=== PATIENT | male | born 1970 | race African-American/Black ===

== ENCOUNTER 2016-10-21 07:10 | Emergency (ER) | payer OTHER ==
[2016-10-21 07:34] VITALS: BMI 41.1
--- NOTE | 2016-10-21 08:34 | PDOC ---
History of Present Illness - General Chief Complaint: Pain Stated Complaint: R LEG/GROAIN PAIN,flank,constipation Time Seen by Provider: 10/21/16 07:15 History Source: Patient Exam Limitations: No Limitations - History of Present Illness Initial Comments: 10/21/16 08:00 46-year-old male presents to the ED with complaints of right groin pain radiating to his right inner thigh for the past week worsened with ambulation. Patient states had no arterial femoral stent placed by Dr. Sorensen last year and is pending stent in his left lower extremity but due to his poor kidney function is in the process of reevaluation. Patient states has no decreased temperature the to the right lower extremity but does state tingling sometimes numbness with periodic numbness noted to his right foot. Patient denies any lower extremity edema, calf tenderness, or weakness to the lower extremity. Timing/Duration: 1 week, getting worse Severity: moderate Associated Symptoms: denies: denies symptoms Past History - Past Medical History Allergies/Adverse Reactions: Allergies Allergy/AdvReac Type Severity Reaction Status Date / Time No Known Allergies Allergy Verified 10/21/16 07:14 Home Medications: Ambulatory Orders Aspirin [ASA -] 81 mg PO DAILY 04/04/15 Nebivolol HCl [Bystolic] 10 mg PO DAILY #30 tablet 04/17/15 Gabapentin [Neurontin] 300 mg PO TID 10/21/16 Insulin Pump Syringe, 1.8 ml [Thinset] 1 each MC DAILY 10/21/16 Olmesartan/Hydrochlorothiazide [Benicar Hct 40-25 mg Tablet] 1 each PO DAILY Anemia: No Asthma: No Cancer: No Cardiac Disorders: No CVA: No COPD: No CHF: No Dementia: No Diabetes: Yes HTN: Yes Hypercholesterolemia: Yes Seizures: No Other medical history: pvd ble - Surgical History Lung Surgery: Yes (lung tumor removed at age 4) Orthopedic Surgery: Yes (LFT carpal tunnel syndrome,LFT rotator muscles) - Immunization History Immunization Up to Date: Yes - Psycho/Social/Smoking Cessation Hx Anxiety: No Suicidal Ideation: No Smoking History: Former smoker Have you smoked in the past 12 months: Yes Number of Cigarettes Smoked Daily: 10 If you are a former smoker, when did you quit?: 10/2014 Information on smoking cessation initiated: No 'Breaking Loose' booklet given: 02/01/14 Hx Alcohol Use: No Drug/Substance Use Hx: Yes (peter) Substance Use Type: None Hx Substance Use Treatment: No Patient Lives Alone: No Lives with/in: spouse/SO Review of Systems - Review of Systems Able to Perform ROS?: Yes Constitutional: No: Symptoms Reported Musculoskeletal: Yes: Muscle Pain (rt groin, rt inner thigh) Integumentary: No: Symptoms Reported Neurological: No: Symptoms reported Endocrine: No: Symptoms Reported Hematologic/Lymphatic: No: Symptoms Reported *Physical Exam - Vital Signs Last Vital Signs Temp Pulse Resp BP Pulse Ox 98.1 F 94 H 18 130/57 98 10/21/16 07:15 10/21/16 07:15 10/21/16 07:15 10/21/16 07:15 10/21/16 07:15 - Physical Exam General Appearance: Yes: Nourished, Appropriately Dressed. No: Apparent Distress Neck: positive: Supple Respiratory/Chest: positive: Lungs Clear, Normal Breath Sounds. negative: Respiratory Distress, Accessory Muscle Use Cardiovascular: positive: Regular Rhythm, Regular Rate. negative: Murmur Vascular Pulses: Dorsalis-Pedis (R): 0 (No popiteal/post tibial pulse palpable) Comments:: 10/21/16 08:54 Audible right post tibial with doppler. Gastrointestinal/Abdominal: positive: Soft. negative: Tenderness Musculoskeletal: negative: CVA Tenderness Extremity: positive: Normal Capillary Refill. negative: Pedal Edema Integumentary: positive: Normal Color, Warm, Moist. negative: Rash, Swelling, Ecchymosis Neurologic: positive: Motor Strength 5/5 (ambulatory ) ED Treatment Course - LABORATORY CBC & Chemistry Diagram: 10/21/16 12:32 10/21/16 12:32 - RADIOLOGY Radiology Studies Ordered: Category Date Time Status DUPLEX ART. LOWER COMPL US [US] Stat Ultrasound 10/21/16 07:54 Ordered Medical Decision Making - Medical Decision Making 10/21/16 08:56 Pt with right thigh burning throbbing pain x 1 week. Pt with hx of arterial stent x [address] Sorensen to rt femoral. Pt with no palpable pulses to pedal, post tibial, or popiteal area. Via doppler able to auscultate post tibial pulses but no pedal pulse. Pt ordered for arterial duplex and then will speak with Dr. sorensen 10/21/16 10:07 Duplex shows an occluded graft. Call placed to Dr. Sorensen 10/21/16 11:47 Call placed again to Dr. Sorensen with no answer. So Spoke with the surgery team and patient is currently being assessed by surgery PA Brissa Aviles. 10/21/16 12:19 Surgical ALLYN Brumfield states she had spoken to Dr. Sorensen who will consult on patient shortly but on able to determine if patient will be admitted for surgery. patient will be placed for preop labs with IV access if admitted. 10/21/16 15:01 Laboratory Tests 10/21/16 10/21/16 10/21/16 12:32 12:32 12:32 WBC 12.0 H Hgb 13.6 Hct 42.0 Neutrophils % 56.7 Sodium 134 L Potassium 4.8 Chloride 97 L Carbon Dioxide 28 Anion Gap 9 BUN 20 H D Creatinine 1.3 D Creat Clearance w eGFR 58.92 Random Glucose 239 H D Calcium 8.9 AST 25 D ALT 28 D Alkaline Phosphatase 176 H D Albumin 3.3 L D Urine Glucose (UA) Urine Nitrite Ur Leukocyte Esterase Blood Type A POSITIVE 10/21/16 13:45 WBC Hgb Hct Neutrophils % Sodium Potassium Chloride Carbon Dioxide Anion Gap BUN Creatinine Creat Clearance w eGFR Random Glucose Calcium AST ALT Alkaline Phosphatase Albumin Urine Glucose (UA) 1+ H Urine Nitrite Negative Ur Leukocyte Esterase Negative Blood Type chest x-ray negative. Will contact Dr. Sorensen to discuss plan 10/21/16 15:[address] Sorensen and feels that this is not an urgent matter nor does this patient needs to be admitted but feels patient does need to follow-up in the office on . I have reviewed patient's labs and imaging with him and agrees patient may be discharged home. Selected Entries 10/21/16 11:00 Pulse Rate [ 85 Apical] Respiratory 18 Rate Blood Pressure 100/66 [Right Arm] O2 Sat by Pulse 100 Oximetry (%) *DC/Admit/Observation/Transfer Diagnosis at time of Disposition: Pain of right lower extremity, Occlusion of right femoral artery - Discharge Dispostion Disposition: HOME Condition at time of disposition: Fair - Referrals Referrals: Nikolay Cooper MD [Primary Care Provider] - Tate Sorensen MD [Staff Physician] - - Patient Instructions Printed Discharge Instructions: DI for Arteriovenous Graft Additional Instructions: I have spoken to Dr. Sorensen will feels you may be discharged home to follow- up in the office on . I recommend you call his office upon discharge today due to find out exactly time that you were placed on schedule. Please come to the emergency room if symptoms worsen. Please drink plenty of fluids, avoid sugary foods, and take your medication for diabetes as scheduled
[2016-10-21 12:42] LABS: BASOPHIL 1.2 % (0-2.0); EOSINOPHIL 3.1 % (0-4.5); MCH 27.2 pg (25.7-33.7); MCHC 32.4 g/dl (32.0-35.9); MEAN CELL VOLUME 84.1 fl (80-96); MEAN PLT VOLUME 8.3 fl (7.5-11.1); NEUTROPHILS 56.7 % (42.8-82.8); PLATELET COUNT 216 K/MM3 (134-434)
[2016-10-21 12:55] LABS: INR 1.09 (0.82-1.09)
[2016-10-21 13:14] LABS: ALBUMIN 3.3 g/dl (3.4-5.0); BILIRUBIN,TOTAL 0.7 mg/dL (0.2-1.0); CALCIUM 8.9 mg/dL (8.5-10.1); CREATININE 1.3 mg/dL (0.7-1.3); TOT PROT 6.8 g/dl (6.4-8.2)
[2016-10-21 14:03] LABS: URINE APPEARANCE CLEAR; URINE BILIRUBIN NEGATIVE (NEGATIVE); URINE BLOOD NEGATIVE (NEGATIVE); URINE COLOR LTYELLOW; URINE GLUCOSE (UA) 1+ (NEGATIVE); URINE KETONE NEGATIVE (NEGATIVE); URINE LEUK ESTERASE NEGATIVE (NEGATIVE); URINE NITRITE NEGATIVE (NEGATIVE); URINE PROTEIN NEGATIVE (NEGATIVE); URINE UROBILINOGEN NEGATIVE E.U./dl (0.2-1.0)
[2016-10-21 15:52] VITALS: BP 112/83; PULSE 80; TEMP 97.4
--- NOTE | 2016-10-21 17:55 | PN ---
Progress Note (short form) - Note Progress Note: Vascular Surgery: The patient came to the ER today with c/o Right upper thigh pain. He states that the pain developed approximately two weeks ago and over the past 2-to 3 days has become worse. The pain is located in the upper/medial thigh and is worse with ambulating. He has baseline peripheral neuropathy and states that these symptoms have not increased nor is he having RLE pain. He has had several procedures done for lack of blood flow to his lower ext. In the past he has had b/l angio with treatment. s/p Right SFA stent and was to have left procedure but his kidney function has become elevated. The patient states that he last saw Dr. Sorensen several months ago. He last took his coumadin dose approximately 3 weeks ago after he ran out of his medications. He denies getting his coumadin levels checked. Vital Signs Period Temp Pulse Resp BP Sys/Ken Pulse Ox Last 24 Hr 97.4 F-98.1 F 80-94 18-19 100-130/57-83 98-100 PE: ABD: obese, soft, non-distended, non-tender. Right groin without masses. No hernia palpable. Testes, non-tender(bilateral), no erythema. lower ext: b/l femoral pulses(palpable) feet warm to touch b/l distal pulses: Right +1 DP with doppler, +2 PT with doppler left +2 DP/PT with doppler Right upper thigh: tender to touch in medial upper thigh. No masses, erythema. CBC, BMP 10/21/16 12:32 10/21/16 12:32 INR, PTT INR 1.09 (0.82-1.09) 10/21/16 12:32 Doppler: Occlued SFA stent with monophasic flow to below the popliteal/PT. Triphasic blood flow to BASKET MAKER. A/p: Pt with pain to right upper thigh. No evidence of acute ischemia to RLE, foot warm with doppler pulses and non-tender. Case D/w Dr. Sorensen, base line labs were ordered. Further treatment and discharge plan was made by the ER staff and Dr. Sorensen , pt to follow-up on thrusday with Dr. Sorensen of this week.
--- NOTE | 2016-10-21 23:14 | EKG ---
Test Reason : Blood Pressure : / mmHG Vent. Rate : 082 BPM Atrial Rate : 082 BPM P-R Int : 158 ms QRS Dur : 094 ms QT Int : 374 ms P-R-T Axes : 062 -08 041 degrees QTc Int : 436 ms NORMAL SINUS RHYTHM NORMAL ECG WHEN COMPARED WITH ECG OF 13-APR-2015 23:50, NO SIGNIFICANT CHANGE WAS FOUND Confirmed by KELLIE SILVA MD ([id number]) on 10/21/2016 11:13:53 PM Referred By: Confirmed By:KELLIE SILVA MD
== END 2016-10-21 15:52 | disposition home or self-care (01) ==
LOC: JER 07:10
DX: I74.8 Embolism and thrombosis of other arteries (principal); M79.661 Pain in right lower leg; Z87.891 Personal history of nicotine dependence; I10 Essential (primary) hypertension; E78.00 Pure hypercholesterolemia, unspecified
CPT/HCPCS: 36415; 71010-TC; 80053; 81003; 85025; 85610; 86850; 86900; 86901; 93005; 93010; 93926-TC; 99285-25

== ENCOUNTER → 2017-03-02 | Emergency (ER) | payer OTHER ==
--- NOTE | 2017-03-02 18:33 | PDOC ---
Rapid Medical Evaluation Time Seen by Provider: 03/02/17 18:29 Medical Evaluation: Allergies Allergy/AdvReac Type Severity Reaction Status Date / Time No Known Allergies Allergy Verified 10/21/16 07:14 03/02/17 18:29 46 year old male with IDDM (insulin pump), HTN, HLD, neuropathy, PAD (s/p left fem art stent x 1), lung tumor removed age 6 months complaining of one month of worsening right flank pain radiating to RLQ and right testicle. Started with sexual intercourse and now worse with same. V/s on arrival notable for P 108, BP 162/86. -UA/culture -Scrotal u/s -Basic labs -To Main ED for further evaluation
[2017-03-02 18:34] VITALS: BP 162/86; PULSE 102; TEMP 98; BMI 38.9
[2017-03-02 19:35] LABS: URINE APPEARANCE CLEAR; URINE BILIRUBIN NEGATIVE (NEGATIVE); URINE BLOOD NEGATIVE (NEGATIVE); URINE COLOR YELLOW; URINE GLUCOSE (UA) 1+ (NEGATIVE); URINE KETONE NEGATIVE (NEGATIVE); URINE LEUK ESTERASE NEGATIVE (NEGATIVE); URINE NITRITE NEGATIVE (NEGATIVE); URINE UROBILINOGEN NEGATIVE E.U./dl (0.2-1.0)
[2017-03-02 20:04] LABS: BASOPHIL 1.1 % (0-2.0); MCH 27.2 pg (25.7-33.7); MCHC 32.1 g/dl (32.0-35.9); MEAN PLT VOLUME 8.6 fl (7.5-11.1); NEUTROPHILS 52.2 % (42.8-82.8); PLATELET COUNT 224 K/MM3 (134-434); RDW 15.6 % (11.9-15.9); URINE PROTEIN 3+ (NEGATIVE); WHITE BLOOD COUNT 9.3 K/mm3 (4.0-10.0)
[2017-03-02 20:24] LABS: URINE HYALINE CAST 1 /lpf; URINE MUCUS RARE; URINE RBC 1 /hpf (0-3); URINE WBC 2 /hpf (3-5)
--- NOTE | 2017-03-02 22:36 | PDOC ---
History of Present Illness - General Chief Complaint: Pain Stated Complaint: PAIN/FLANK/SCROTUM Time Seen by Provider: 03/02/17 18:29 History Source: Patient Exam Limitations: No Limitations - History of Present Illness Travel History: No Initial Comments: 03/02/17 22:31 46yo Male patient w/ PmHx: PAD, DM, HTN presents to ED c/o 4 week history of Rt Flank Pain that progress to umbilical pain 2 weeks ago and groin pain today after his grabbed his groin area "while playing." Associated sweating. Patient denies n/v/d, fever, diff breathing, CP, rash, or any other complaints at this time. Timing/Duration: reports: getting worse Quality: reports: moderate, sharpness Abdominal Pain Onset Location: reports: flank Pain Radiation: reports: groin Activities at Onset: reports: no specific activity Treatment Prior to Arrive: worse with: analgesics, antacids, cold pack, heat, laxative, enema, other Aggravating Factors: worse with: None, Defecation, Eating, Emotional upset, Exertion, Watson, Movement, Voiding, Change in position Alleviating Factors: worse with: None, Belching, Shallow Breathing, Defecation, Eating, Holding Breath, Passing Gas, Change in Position, Rest, Voiding, Vomiting Past History - Travel Traveled outside of the country in the last 30 days: No Close contact w/someone who was outside of country & ill: No - Past Medical History Allergies/Adverse Reactions: Allergies Allergy/AdvReac Type Severity Reaction Status Date / Time No Known Allergies Allergy Verified 03/02/17 18:31 Home Medications: Ambulatory Orders Aspirin [ASA -] 81 mg PO DAILY 04/04/15 Insulin Pump Syringe, 1.8 ml [Thinset] 1 each MC DAILY 10/21/16 Amlodipine Besylate 5 mg PO DAILY 03/02/17 Atorvastatin Ca [Lipitor] 20 mg NR DAILY 03/02/17 Losartan/Hydrochlorothiazide [Losartan-Hctz 50-12.5 mg Tab] 1 each PO DAILY 09/06 Oxycodone HCl/Acetaminophen [Percocet 5-325 mg Tablet] 1 tab PO Q6H PRN #20 tablet MDD 4 TABS 03/03/17 Anemia: No Asthma: No Cancer: No Cardiac Disorders: No CVA: No COPD: No CHF: No Dementia: No Diabetes: Yes (IDDM, INSULIN PUMP) HTN: Yes Hypercholesterolemia: Yes Seizures: No Other medical history: NEUROPATHY,PVD - Surgical History Lung Surgery: Yes (lung tumor removed at age 4) Orthopedic Surgery: Yes (LFT carpal tunnel syndrome,LFT rotator muscles) - Immunization History Immunization Up to Date: Yes - Psycho/Social/Smoking Cessation Hx Anxiety: No Suicidal Ideation: No Smoking History: Former smoker Have you smoked in the past 12 months: Yes Number of Cigarettes Smoked Daily: 10 If you are a former smoker, when did you quit?: 10/2014 Information on smoking cessation initiated: No 'Breaking Loose' booklet given: 02/01/14 Hx Alcohol Use: No Drug/Substance Use Hx: No Substance Use Type: None Hx Substance Use Treatment: No Abd/GI Specific PMHX - Complaint Specific PMHX Colitis: No Diverticulitis: No Gall Bladder Disease: No GERD: No Hepatitis: No Irritable Bowel Synd (IBS): No Pancreatitis: No GI Ulcer Disease: No Review of Systems - Review of Systems Able to Perform ROS?: Yes Is the patient limited Chinese proficient: No Constitutional: No: Chills, Fever Respiratory: No: Cough, Shortness of Breath, Stridor, Wheezing Cardiac (ROS): No: Chest Pain, Lightheadedness, Palpitations, Syncope, Chest Tightness ABD/GI: Yes: Abdominal cramping. No: Diarrhea, Nausea, Rectal Bleeding, Vomiting : Yes: Flank Pain, Pain, Testicular Pain. No: Burning, Dysuria, Hematuria, Urgency, Testicular Mass, Testicular Swelling Musculoskeletal: Yes: Back Pain. No: Symptoms Reported, See HPI, Gout, Joint Pain, Joint Swelling, Muscle Pain, Muscle Weakness, Neck Pain, Joint Stiffness, Other All Other Systems: Reviewed and Negative *Physical Exam - Vital Signs Last Vital Signs Temp Pulse Resp BP Pulse Ox 98.0 F 102 H 18 162/86 100 03/02/17 18:31 03/02/17 18:31 03/02/17 18:31 03/02/17 18:31 03/02/17 18:31 - Physical Exam General Appearance: Yes: Nourished, Appropriately Dressed. No: Apparent Distress, Mild Distress, Moderate Distress, Severe Distress Neck: positive: Trachea midline, Supple. negative: Stridor, Lymphadenopathy (R) , Lymphadenopathy (L) Respiratory/Chest: positive: Lungs Clear, Normal Breath Sounds. negative: Chest Tender, Respiratory Distress, Accessory Muscle Use, Labored Respiration, Rapid RR, Stridor, Wheezing Cardiovascular: positive: Regular Rhythm, Regular Rate Gastrointestinal/Abdominal: positive: Normal Bowel Sounds, Soft, Guarding, Tenderness (Rt Groin region.). negative: Distended Musculoskeletal: positive: Normal Inspection. negative: CVA Tenderness Extremity: positive: Normal Capillary Refill, Normal Inspection, Normal Range of Motion. negative: Pedal Edema, Swelling, Calf Tenderness, Erythema Integumentary: positive: Normal Color, Dry, Warm Neurologic: positive: family development extension specialist II-XII NML intact, Fully Oriented, Alert, Normal Mood/ Affect, Normal Response, Motor Strength 01/23 ED Treatment Course - LABORATORY CBC & Chemistry Diagram: 03/02/17 18:45 03/02/17 18:45 - ADDITIONAL ORDERS Additional order review: Laboratory Results 03/02/17 18:45 Urine Color Yellow Urine Appearance Clear Urine pH 5.0 Urine Protein 3+ H Urine Glucose (UA) 1+ H Urine Ketones Negative Urine Blood Negative Urine Nitrite Negative Urine Bilirubin Negative Urine Urobilinogen Negative Ur Leukocyte Esterase Negative Urine RBC 1 Urine WBC 2 Hyaline Casts 1 Urine Mucus Rare 03/02/17 18:45 RBC 5.06 MCV 85.0 MCHC 32.1 RDW 15.6 MPV 8.6 Neutrophils % 52.2 Lymphocytes % 37.1 Monocytes % 5.6 Eosinophils % 4.0 Basophils % 1.1 - RADIOLOGY Radiology Studies Ordered: Category Date Time Status ABDOMEN & PELVIS CT W/O CONTR [CT] Stat CT Scan 03/02/17 21:44 Ordered *DC/Admit/Observation/Transfer Diagnosis at time of Disposition: Right groin pain - Discharge Dispostion Disposition: HOME Condition at time of disposition: Stable Admit: No - Prescriptions Prescriptions: Oxycodone HCl/Acetaminophen [Percocet 5-325 mg Tablet] 1 tab PO Q6H PRN #20 tablet MDD 4 TABS PRN Reason: Severe Pain - Referrals Referrals: Nikolay Cooper MD [Primary Care Provider] - Bry Craven MD., MD [Staff Physician] - - Patient Instructions Printed Discharge Instructions: DI for Groin Strain Additional Instructions: FOLLOW UP WITH DR. CRAVEN (UROLOGY) THIS WEEK. CALL TO SCHEDULE APPOINTMENT THIS WEEK. TAKE MEDICATIONS PRESCRIBED. DO NOT DRIVE, DRINK ALCOHOL, OR OPERATE HEAVY MACHINERY WHILE TAKING PERCOCET. MONITOR BLOOD SUGAR LEVELS AND TAKE APPROPRIATE INSULIN. RETURN IF SYMPTOMS WORSEN OR ANY CONCERNS FOR FURTHER EVALUATION. Print Language: AFGHAN - Post Discharge Activity Work/School Note: Back to Work
[2017-03-02 22:55] LABS: ALBUMIN 3.9 g/dl (3.4-5.0); BILIRUBIN,TOTAL 0.6 mg/dL (0.2-1.0); CALCIUM 9.4 mg/dL (8.5-10.1); COCKROFT - GAULT 125.43; CREATININE 1.4 mg/dL (0.7-1.3); TOT PROT 7.2 g/dl (6.4-8.2)
== END | disposition home or self-care (01) ==
LOC: JER 18:25
DX: R10.31 Right lower quadrant pain (principal); I10 Essential (primary) hypertension; E11.9 Type 2 diabetes mellitus without complications; I73.9 Peripheral vascular disease, unspecified; Z79.4 Long term (current) use of insulin; Z96.41 Presence of insulin pump (external) (internal); Z87.891 Personal history of nicotine dependence
CPT/HCPCS: 36415; 74176-TC; 76870-TC; 80053; 81003; 81015; 85025; 87086; 99283-25

== ENCOUNTER 2017-09-02 08:10 | Inpatient (IN) | payer OTHER ==
[2017-09-01 12:02] VITALS: BMI 37.2
[~2017-09-02 08:10] MED LIST: CEFAZOLIN 2 GM in DEXTROSE 5%-WATER - 100 ML IVPB ONE
[2017-09-02] MEDS ORDERED: ceFAZolin SODIUM 1 GM VIAL ONE (09:22)
[2017-09-02] MEDS ORDERED: CEFAZOLIN 2 GM/D5W 2 GM/50 ML ML IVPB ONE (10:00)
[2017-09-02] MEDS ORDERED: fentaNYL CITRATE 250 MCG/5 ML VIAL ONE (10:23)
[2017-09-02] MEDS ORDERED: MIDAZOLAM HCL 2 MG/2 ML SINGLE DOSE VIAL ONE (10:23)
--- NOTE | 2017-09-02 10:29 | HP ---
History & Physical Update - History History: No Change - Physical Physical: No Change - Assessment Assessment: No Change - Plan Plan: No Change
[2017-09-02] MEDS ORDERED: ONDANSETRON 4 MG/2 ML VIAL IVPUSH PRN (10:32)
[2017-09-02] MEDS ORDERED: LACTATED RINGERS SOLUTION 1,000 ML IV SCH (10:45)
[2017-09-02] MEDS ORDERED: ceFAZolin SODIUM 1 GM VIAL IVPB ONE (11:05)
[2017-09-02] MEDS ORDERED: ROCURONIUM BROMIDE 50 MG/5 ML VIAL ONE ×2 (11:08→11:52)
[2017-09-02] MEDS ORDERED: DEXAMETHASONE SOD PHOSPHATE 4 MG/1 ML VIAL ONE (11:17)
[2017-09-02] MEDS ORDERED: GLYCOPYRROLATE 0.2 MG/1 ML VIAL ONE (11:50)
[2017-09-02] MEDS ORDERED: NEOSTIGMINE METHYLSULFATE 0.5 MG/ML - 10 ML MDV ONE (11:50)
[2017-09-02] MEDS ORDERED: LIDOCAINE HCL/PF 2% SDV 5ML VIAL ONE (11:51)
[2017-09-02] MEDS ORDERED: HEPARIN NA (PORCINE) 5,000 UNITS/ML 1ML VIAL ONE ×5 (12:07→13:14)
[2017-09-02] MEDS ORDERED: KETOROLAC TROMETHAMINE 30 MG/1 ML VIAL ONE (12:08)
[2017-09-02] MEDS ORDERED: THROMBIN (BOVINE) 5,000 UNIT VIAL TP ONE ×3 (12:47→13:59)
[2017-09-02] MEDS ORDERED: GELATIN, ABSORBABLE 100 EACH SPONGE TP ONE (12:55)
[2017-09-02] MEDS ORDERED: SODIUM CHLORIDE 0.9% P/F 10 ML VIAL IJ ONE (13:14)
[2017-09-02] MEDS ORDERED: PROTAMINE SULFATE 50 MG/5 ML VIAL ONE (13:58)
[2017-09-02] MEDS ORDERED: PROPOFOL 20 ML ONE (14:10)
--- NOTE | 2017-09-02 14:33 | OP ---
Operative Note - Note: Operative Date: 09/02/17 Pre-Operative Diagnosis: Claudication Operation: Right femoro-poplitealbypass with PTFE. Endarterectomy femoral and popliteal arteries Findings: Severe atherosclerotic plaque in femoral and popliteal arteries. Implants: 8 mm ringed goretex graft Post-Operative Diagnosis: Same as Pre-op Surgeon: Tate Sorensen Paperhanger And Painter: Brissa Aviles Anesthesiologist/COURT MESSENGER: Van Curran Anesthesia: General Specimens Removed: Femoral and popliteal plaques Estimated Blood Loss (mls): 200
[2017-09-02] MEDS ORDERED: oxyCODONE HCL 5 MG TABLET PO PRN (14:39)
[2017-09-02] MEDS ORDERED: SODIUM CHLORIDE 1,000 ML IV SCH (14:45)
[2017-09-02] MEDS ORDERED: HYDROmorphone HCL CARPU-JECT 2 MG/1 ML DISP.SYRIN IVPB PRN (16:50)
--- NOTE | 2017-09-02 17:02 | SURG ---
Surgery Corporate Travel Counselor Note Corporate Travel Counselor: Brissa Aviles PA-C Date of Service: 09/02/17 Diagnosis: Claudication Procedure: Right femoro-poplitealbypass with PTFE. Endarterectomy femoral and popliteal arteries I was present for the entirety of the operative procedure. For further detail, please refer to operative report. Visit type - Case Type Case Type: Scheduled Admission - Emergency Emergency Visit: No - New patient This patient is new to me today: Yes Date on this admission: 09/02/17
[2017-09-02] MEDS ORDERED: ONDANSETRON 4 MG/2 ML VIAL ONE (17:06)
[2017-09-02] MEDS ORDERED: ONDANSETRON 4 MG/2 ML VIAL IVPUSH ONE (17:08)
[2017-09-02] MEDS: CEFAZOLIN 1 GM PUSH 1 GM/10 ML DISP.SYRIN IVPUSH SCH (20:00)
--- NOTE | 2017-09-02 20:11 | PN ---
Progress Note (short form) - Note Progress Note: 47 y/o M with PMH HTN, DM (with b/l LE neuropathy), HLD, who has been transferred to the ICU s/p Right femoro-popliteal bypass with PTFE, endarterectomy femoral and popliteal arteries. Surgery done by Dr. Sorensen. Pt currently PO Day 0. As per pt, for the past three years, he has had b/l calf pain and excruciating, 10/10 pain while walking, relieved with rest. Pt noticed that he would develop such pain after walking exactly one block, or up a hill. He was seen at [facility] for follow up, where he was found to have a "L leg blockage and 100% R leg blockage." He was thus sent to Dr. Sorensen who removed b/l occlusions in lower extremities. Two years ago, he felt a pop when walking down a hill and subsequently had a stent placed in his R lower extremity. As per pt, both lower extremities subsequently reoccluded, thus he underwent surgery - on his LLE last week, and today, on his RLE. PMH: as above PSxH: childhood tumor (removed at age 6 months), L carpal tunnel release, L rotator cuff repair meds: as in chart allergies: NKDA, NKA FH: mother- passed from [place], father- DM SH: quit smoking cigarettes 3 yrs ago (prev smoked x30yrs, 1ppd), denies alcohol , uses MJ "all the time" #s/p Right femoro-popliteal bypass with PTFE, endarterectomy femoral and popliteal arteries PO Day 0 -frequent pulse check, dorsalis pedis a. - strong pulse appreciated -frequent checks- for bleeding, surgical site -pain control- fentanyl, dilaudid, roxicodone -cefazolin 24hrs post-op only #HTN- currently controlled -Continue Norvasc 10mg PO qd -Hyzaar 12.5 mg PO qd -Metoprolol 25mg PO qd #HLD -Continue lipitor 20mg PO HS qd #DM -ISS -BGM #F/E/N -IV NS 125 cc/hr -Will follow electrolytes -sodium controlled diet, pt tolerating well #PPX DVT: Hep 5000 SQ BID #Dispo Continued ICU monitoring
[2017-09-02] MEDS: oxyCODONE HCL 5 MG TABLET PO PRN (20:15)
--- NOTE | 2017-09-02 20:22 | CONSULT ---
Consult - text type - Consultation Consultation Note: CCM Seen and examined in ICU CC: POD #0 Fem/pop bypass HPI: 47 y/o man with HTN, DM, PAD, recurrent cutaneous abcess (requiring surgical drainage) presented for planned surgery with Dr Buck. Underwent uneventful Right femoro-poplitealbypass with PTFE. Endarterectomy femoral and popliteal arteries. Pt tolerated procedure well, extubated in PACU. Admitted to ICU for overnight observation and monitoring of limb. Smoking History Smoking history Former smoker Aproximately how many 10 cigarettes per day If you are a former smoker, 10/2014 when did you quit? 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 History of Recent Travel Yes: [place] 2 weeks ago Past Medical History Cardio/Vascular HTN,Hyperlipdemia,Other Renal/ Renal Inusuff Infectious Disease Other Endocrine Diabetes Mellitus Home Medications Medication Instructions Recorded Aspirin [ASA -] 81 mg PO DAILY 04/04/15 Insulin Pump Syringe, 1.8 ml 1 each MC DAILY 10/21/16 [Thinset] Amlodipine Besylate 10 mg PO DAILY 03/02/17 Atorvastatin Ca [Lipitor] 20 mg NR DAILY 03/02/17 Losartan/Hydrochlorothiazide 1 each PO DAILY 03/02/17 [Losartan-Hctz 50-12.5 mg Tab] Clopidogrel Bisulfate [Plavix -] 75 mg PO DAILY 09/02/17 Ibuprofen [Advil -] 400 mg PO PRN PRN 09/02/17 Metoprolol Succinate [Toprol Xl -] 25 mg PO DAILY 09/02/17 Active Medications Amlodipine Besylate (Norvasc -) 10 mg PO DAILY [facility] Aspirin (Asa -) 81 mg PO DAILY [facility] Atorvastatin Calcium (Lipitor -) 20 mg PO DAILY [facility] Chlorhexidine Gluconate (Hibiclens For Decolonization -) 1 applic TP HS [facility] Clopidogrel Bisulfate (Plavix -) 75 mg PO DAILY [facility] Fentanyl (Sublimaze Injection -) 50 mcg IVPUSH [id number] PRN PRN Reason: PAIN HCTZ/Losartan Potassium (Hyzaar -) 1 tab PO DAILY [facility] Heparin Sodium (Porcine) (Heparin -) 5,000 unit SQ TID [place] Hydromorphone HCl (Dilaudid Injection -) 1 mg IVPB Q4H PRN PRN Reason: PAIN Sodium Chloride (Normal Saline -) 1,000 mls @ 125 mls/hr IV ASDIR [place] Cefazolin Sodium (Ancef -) 1 gm in 10 mls @ 200 mls/hr IVPUSH Q8H-IV [place] Stop: 09/03/17 02:02 Insulin Aspart (Novolog Vial Sliding Scale -) 1 vial SQ ACHS [place] PRN Reason: Protocol Metoprolol Succinate (Toprol Xl -) 25 mg PO DAILY [facility] Mupirocin (Bactroban Ointment (For Decolonization) -) 1 applic NS BID [facility] Stop: 09/07/17 21:59 Oxycodone HCl (Roxicodone -) 5 mg PO Q4H PRN PRN Reason: PAIN LEVEL 1-5 Oxycodone HCl (Roxicodone -) 10 mg PO Q4H PRN PRN Reason: PAIN LEVEL 6-10 labs pending cxr pending P/E: Gen: Non toxic appearing middle age gentleman, INAD PULM: clear anterior CV: RRR, no m/r/g appreciated ABD: soft, NT EXT: R mid thigh surgical site with small amt of sero-sang oozing into dressing , DP/PT pulse present by doppler Neuro: intact, A/47 y/o man CAD now POD #0 after R fem/pop bypass with graft P/ -Dr Sorensen following,notify of changes to limb/pulses - doppler DP/PT as per surgery -post op hemodyanmic monitoring -restart home medications a -pain control--oxycodone Jakob Wilson [facility] [id number]
[2017-09-02] MEDS ORDERED: CEFAZOLIN 2 GM in DEXTROSE 5%-WATER - 100 ML IVPB SCH (21:00)
[2017-09-02] MEDS ORDERED: MUPIROCIN 2% TOPICAL OINTMENT FOR DECOLONIZATION NS SCH (22:00)
[2017-09-02] MEDS ORDERED: CHLORHEXIDINE GLUCONATE 4% CLEANSER FOR DECOLONIZATION TP SCH ×2 (22:00)
[2017-09-02] MEDS: INSULIN SLIDING SCALE (NOVOLOG) 1 VIAL SQ SCH (22:19)
[2017-09-02] MEDS: HEPARIN NA (PORCINE) 5,000 UNITS/ML 1ML VIAL SQ SCH (22:19)
[2017-09-02] MEDS: MUPIROCIN 2% TOPICAL OINTMENT FOR DECOLONIZATION NS SCH (22:22)
[2017-09-03] MEDS: CEFAZOLIN 1 GM PUSH 1 GM/10 ML DISP.SYRIN IVPUSH SCH (02:30)
[2017-09-03] MEDS: HEPARIN NA (PORCINE) 5,000 UNITS/ML 1ML VIAL SQ SCH ×3 (05:33→22:40)
[2017-09-03] MEDS: oxyCODONE HCL 5 MG TABLET PO PRN ×2 (05:34→13:15)
[2017-09-03] MEDS: INSULIN SLIDING SCALE (NOVOLOG) 1 VIAL SQ SCH ×3 (07:15→16:32)
[2017-09-03 07:16] LABS: ANION GAP 10 (8-16); CALCIUM 8.3 mg/dL (8.5-10.1); CO2 27 mmol/L (21-32); CREATININE 1.3 mg/dL (0.7-1.3); GLUCOSE,RANDOM 182 mg/dL (74-106)
[2017-09-03 07:19] LABS: BASO % 0.3 % (0-2.0); EOS % 0.3 % (0-4.5); MCH 27.4 pg (25.7-33.7); MCHC 32.2 g/dl (32.0-35.9); MEAN CELL VOLUME 85.2 fl (80-96); MEAN PLT VOLUME 8.3 fl (7.5-11.1); NEUT % 69.9 % (42.8-82.8); PLATELET COUNT 223 K/MM3 (134-434); RDW 15.4 % (11.9-15.9); WHITE BLOOD COUNT 15.2 K/mm3 (4.0-10.0)
--- NOTE | 2017-09-03 08:29 | PN ---
Progress Note (short form) - Note Progress Note: POD 1 No compliants VSS Wounds with small amount bloody drainage Foot warm. DP and PT present with Doppler Labs reviewed Stable course OLETICIA D/C kayla
[2017-09-03] MEDS: MUPIROCIN 2% TOPICAL OINTMENT FOR DECOLONIZATION NS SCH (09:24)
[2017-09-03] MEDS ORDERED: amLODIPine BESYLATE 10 MG TABLET (FP) PO SCH (10:00)
[2017-09-03] MEDS ORDERED: METOPROLOL SUCCINATE 25 MG TAB.SR.24H (FP) PO SCH (10:00)
[2017-09-03] MEDS ORDERED: ATORVASTATIN CA 20 MG TABLET (FP) PO SCH (10:00)
[2017-09-03] MEDS ORDERED: ASPIRIN 81 MG CHEWABLE TABLETS PO SCH (10:00)
[2017-09-03] MEDS ORDERED: CLOPIDOGREL BISULFATE 75 MG TABLET (FP) PO SCH (10:00)
[2017-09-03] MEDS ORDERED: LOSARTAN 50MG/HCTZ 12.5MG 1 TAB (FP) PO SCH (10:00)
[2017-09-03] MEDS ORDERED: [UNRECOGNIZED DRUG - OTHER] MC SCH (10:00)
[2017-09-03] MEDS ORDERED: INSULIN PUMP MC SCH (10:00)
--- NOTE | 2017-09-03 10:48 | PN ---
Progress Note (short form) - Note Progress Note: Pt day #1 s/p right sided fem pop. Doing well in ICU, in good spirits. No complaints, no anestetic complications. Contimue current treatment.
--- NOTE | 2017-09-03 11:43 | PN ---
Physical Exam: SUBJECTIVE: Patient seen and examined Patient resting in bed NAD. No acute events overnight. Afebrile and hemodynamically stable. Pain well controlled with percocet. Dopplerable pulses in both LE. Ambulating to chair. Denies CP, new RLE weankess or numbness, bleeding, sob, cough, dizziness, h/a. OBJECTIVE: Vital Signs Period Temp Pulse Resp BP Sys/Ken Pulse Ox Last 24 Hr 98.0 F-99.1 F 65-100 15-22 104-141/45-92 95-100 GENERAL: The patient is awake, alert, and fully oriented, in no acute distress. HEAD: Normal with no signs of trauma. EYES: PERRL, extraocular movements intact, sclera anicteric, conjunctiva clear. No ptosis. ENT: moist mucous membranes. NECK: supple. LUNGS: Breath sounds equal, clear to auscultation bilaterally, no wheezes, no crackles, no accessory muscle use. HEART: Regular rate and rhythm, S1, S2 ABDOMEN: Soft, nontender, nondistended, normoactive bowel sounds, no guarding, no rebound, no masses. EXTREMITIES: RLE well perfused, warm toes, good color, dopplerable DP, Medial thigh dressing clean, trace edema. LLE well perfused, good color, dopplerable pulse, no edema. NEUROLOGICAL: Cranial nerves II through XII grossly intact. Normal speech, gait not observed. PSYCH: Normal mood, normal affect. SKIN: Warm, dry Laboratory Results - last 24 hr 09/02/17 09/02/17 09/02/17 08:54 14:41 17:12 WBC RBC Hgb Hct MCV MCH MCHC RDW Plt Count MPV Neutrophils % Lymphocytes % Monocytes % Eosinophils % Basophils % Sodium Potassium Chloride Carbon Dioxide Anion Gap BUN Creatinine POC Glucometer 160 189 238 Random Glucose Calcium 09/02/17 09/03/17 09/03/17 22:14 05:35 05:35 WBC 15.2 H D RBC 4.28 Hgb 11.7 D Hct 36.5 MCV 85.2 MCH 27.4 MCHC 32.2 RDW 15.4 Plt Count 223 MPV 8.3 Neutrophils % 69.9 D Lymphocytes % 22.9 D Monocytes % 6.6 Eosinophils % 0.3 D Basophils % 0.3 Sodium 138 Potassium 4.2 Chloride 101 Carbon Dioxide 27 Anion Gap 10 BUN 15 D Creatinine 1.3 POC Glucometer [phone] Random Glucose 182 H Calcium 8.3 L Active Medications Generic Name Dose Route Start Last Admin Trade Name Freq PRN Reason Stop Dose Admin Amlodipine Besylate 10 mg 09/03/17 10:00 09/03/17 09:19 Norvasc - PO 10 mg DAILY [place] Administration Aspirin 81 mg 09/03/17 10:00 09/03/17 09:20 Asa - PO 81 mg DAILY [place] Administration Atorvastatin Calcium 20 mg 09/03/17 10:00 09/03/17 09:19 Lipitor - PO 20 mg DAILY [place] Administration Chlorhexidine Gluconate 1 applic 09/02/17 22:00 09/02/17 22:23 Hibiclens For Decolonization - TP 1 applic HS [facility] Administration Clopidogrel Bisulfate 75 mg 09/03/17 10:00 09/03/17 09:19 Plavix - PO 75 mg DAILY [place] Administration HCTZ/Losartan Potassium 1 tab 09/03/17 10:00 09/03/17 09:23 Hyzaar - PO 1 tab DAILY [place] Administration Heparin Sodium (Porcine) 5,000 unit 09/02/17 22:00 09/03/17 05:33 Heparin - SQ 5,000 unit TID [facility] Administration Hydromorphone HCl 1 mg 09/02/17 16:50 Dilaudid Injection - IVPB Q4H PRN PAIN Insulin Aspart 1 vial 09/03/17 11:00 Novolog Vial Sliding Scale - SQ TIDAC [facility] Protocol Metoprolol Succinate 25 mg 09/03/17 10:00 09/03/17 09:20 Toprol Xl - PO 25 mg DAILY [place] Administration Mupirocin 1 applic 09/02/17 22:00 09/03/17 09:24 Bactroban Ointment (For Decolonization) - NS 09/07/17 21:59 1 applic BID [place] Administration Oxycodone HCl 5 mg 09/02/17 14:39 Roxicodone - PO Q4H PRN PAIN LEVEL 1-5 Oxycodone HCl 10 mg 09/02/17 14:40 09/03/17 05:34 Roxicodone - PO 10 mg Q4H PRN Administration PAIN LEVEL 6-10 ASSESSMENT/PLAN: This is a 47 y/o M with PMH of CAD, HTN, HLD, DM now POD #1 s/p R fem/pop graft bypass and endarterectomy. CV -aaox3 Pulm -stable -sleep apnea screening is recommended in setting of extenside CV disease CV *PAD POD1 s/p R fem/pop graft bypass and endarterectomy -maintains adequate perfusion; DP PT dopplerable -continue hep ppx, plavix, asa -pain control with oxycodone, dilaudid prn *PAD *HTN *HLD -resume home medications (lipitor 20, as a81, toprol xl 25 , plavix 75 daily, hyzaar 1 daily, norvasc 10 daily) Endocrine *DM -ISS, BGM TIDAC FEN no ivf lytes stable diabetic diet Dispo: Med suge Problem List - Problems (1) PAD (peripheral artery disease) Code(s): I73.9 - PERIPHERAL VASCULAR DISEASE, UNSPECIFIED (2) CAD (coronary artery disease) Code(s): I25.10 - ATHSCL HEART DISEASE OF [place] CORONARY ARTERY W/O ANG PCTRS (3) HTN (hypertension) Code(s): I10 - ESSENTIAL (PRIMARY) HYPERTENSION (4) HLD (hyperlipidemia) Code(s): E78.5 - HYPERLIPIDEMIA, UNSPECIFIED (5) Femoral-popliteal atherosclerosis Code(s): I70.209 - UNSP ATHSCL [place] ARTERIES OF EXTREMITIES, UNSP EXTREMITY (6) Diabetes Code(s): E11.9 - TYPE 2 DIABETES MELLITUS WITHOUT COMPLICATIONS (7) Femoral artery occlusion, right Code(s): I74.3 - EMBOLISM AND THROMBOSIS OF ARTERIES OF THE LOWER EXTREMITIES (8) Leg pain, right Code(s): M79.604 - PAIN IN RIGHT LEG (9) Obesity Code(s): E66.9 - OBESITY, UNSPECIFIED Visit type - Emergency Visit Emergency Visit: Yes ED Registration Date: 09/02/17 Care time: The patient presented to the Emergency Department on the above date and was hospitalized for further evaluation of their emergent condition. - New Patient This patient is new to me today: Yes Date on this admission: 09/03/17 - Critical Care Critical Care patient: Yes Total Critical Care Time (in minutes): 35 Critical Care Statement: The care of this patient involved high complexity decision making to prevent further life threatening deterioration of the patient 's condition and/or to evaluate & treat vital organ system(s) failure or risk of failure. - Discharge Referral Referred to [facility] Med P.C.: Yes
--- NOTE | 2017-09-03 11:44 | PN ---
Teaching Attending Note Name of Resident: Radha Olivo ATTENDING PHYSICIAN STATEMENT I saw and evaluated the patient. I reviewed the resident's note and discussed the case with the resident. I agree with the resident's findings and plan as documented. SUBJECTIVE: Patient seen and examined in the ICU. Awake and alert. No CP or SOB. (+) snoring and history consistent with OSAS. Intake & Output 08/31/17 09/01/17 09/02/17 09/03/17 23:59 23:59 23:59 23:59 Intake Total 2000 1304 Output Total 1200 2300 Balance 800 -996 Weight 290 lb 290 lb Last Vital Signs Temp Pulse Resp BP Pulse Ox 99.1 F 97 H 20 134/83 100 09/03/17 08:00 09/03/17 08:00 09/03/17 09:00 09/03/17 08:00 09/03/17 09:00 Active Medications Amlodipine Besylate (Norvasc -) 10 mg PO DAILY [facility] Last Admin: 09/03/17 09:19 Dose: 10 mg Aspirin (Asa -) 81 mg PO DAILY [facility] Last Admin: 09/03/17 09:20 Dose: 81 mg Atorvastatin Calcium (Lipitor -) 20 mg PO DAILY [facility] Last Admin: 09/03/17 09:19 Dose: 20 mg Chlorhexidine Gluconate (Hibiclens For Decolonization -) 1 applic TP HS [facility] Last Admin: 09/02/17 22:23 Dose: 1 applic Clopidogrel Bisulfate (Plavix -) 75 mg PO DAILY [facility] Last Admin: 09/03/17 09:19 Dose: 75 mg HCTZ/Losartan Potassium (Hyzaar -) 1 tab PO DAILY [facility] Last Admin: 09/03/17 09:23 Dose: 1 tab Heparin Sodium (Porcine) (Heparin -) 5,000 unit SQ TID [facility] Last Admin: 09/03/17 05:33 Dose: 5,000 unit Hydromorphone HCl (Dilaudid Injection -) 1 mg IVPB Q4H PRN PRN Reason: PAIN Insulin Aspart (Novolog Vial Sliding Scale -) 1 vial SQ TIDAC [facility] PRN Reason: Protocol Metoprolol Succinate (Toprol Xl -) 25 mg PO DAILY [facility] Last Admin: 09/03/17 09:20 Dose: 25 mg Mupirocin (Bactroban Ointment (For Decolonization) -) 1 applic NS BID [place] Stop: 09/07/17 21:59 Last Admin: 09/03/17 09:24 Dose: 1 applic Oxycodone HCl (Roxicodone -) 5 mg PO Q4H PRN PRN Reason: PAIN LEVEL 1-5 Oxycodone HCl (Roxicodone -) 10 mg PO Q4H PRN PRN Reason: PAIN LEVEL 6-10 Last Admin: 09/03/17 05:34 Dose: 10 mg GENERAL: The patient is awake, alert, and fully oriented, in no acute distress. HEAD: Normal with no signs of trauma. EYES: PERRL, extraocular movements intact, sclera anicteric, conjunctiva clear. No ptosis. ENT: Ears normal, nares patent, oropharynx clear without exudates, moist mucous membranes. NECK: Trachea midline, full range of motion, supple. LUNGS: Breath sounds equal, clear to auscultation bilaterally, no wheezes, no crackles, no accessory muscle use. HEART: Regular rate and rhythm, S1, S2 without murmur, rub or gallop. ABDOMEN: Soft, nontender, nondistended, normoactive bowel sounds, no guarding, no rebound, no hepatosplenomegaly, no masses. EXTREMITIES: mild edema in LLE, intact bandage RLE NEUROLOGICAL: non-focal PSYCH: Normal mood, normal affect. SKIN: Warm, dry, normal turgor, no rashes or lesions noted Laboratory Results - last 24 hr 09/02/17 09/02/17 09/02/17 08:54 14:41 17:12 WBC RBC Hgb Hct MCV MCH MCHC RDW Plt Count MPV Neutrophils % Lymphocytes % Monocytes % Eosinophils % Basophils % Sodium Potassium Chloride Carbon Dioxide Anion Gap BUN Creatinine POC Glucometer 160 189 238 Random Glucose Calcium 09/02/17 09/03/17 09/03/17 22:14 05:35 05:35 WBC 15.2 H D RBC 4.28 Hgb 11.7 D Hct 36.5 MCV 85.2 MCH 27.4 MCHC 32.2 RDW 15.4 Plt Count 223 MPV 8.3 Neutrophils % 69.9 D Lymphocytes % 22.9 D Monocytes % 6.6 Eosinophils % 0.3 D Basophils % 0.3 Sodium 138 Potassium 4.2 Chloride 101 Carbon Dioxide 27 Anion Gap 10 BUN 15 D Creatinine 1.3 POC Glucometer [phone] Random Glucose 182 H Calcium 8.3 L IMP: POD #1 Right fem/pop bypass with graft CAD HTN HPL DM Plan: Pain control Incentive Spirometry O2 as needed Sleep screen Monitor Doppler pulse ASA SQ Heparin Floor Dr Fletcher
[2017-09-03] MEDS ORDERED: HYDROmorphone HCL CARPU-JECT 2 MG/1 ML DISP.SYRIN IVPB PRN (17:34)
[2017-09-03] MEDS ORDERED: oxyCODONE HCL 5 MG TABLET PO PRN (17:34)
[2017-09-03] MEDS ORDERED: CHLORHEXIDINE GLUCONATE 4% CLEANSER FOR DECOLONIZATION TP SCH (22:00)
[2017-09-03] MEDS ORDERED: MUPIROCIN 2% TOPICAL OINTMENT FOR DECOLONIZATION NS SCH (22:00)
[2017-09-04] MEDS: oxyCODONE HCL 5 MG TABLET PO PRN ×2 (04:47→23:51)
[2017-09-04] MEDS: HEPARIN NA (PORCINE) 5,000 UNITS/ML 1ML VIAL SQ SCH ×3 (05:06→23:51)
[2017-09-04] MEDS: INSULIN SLIDING SCALE (NOVOLOG) 1 VIAL SQ SCH ×3 (06:05→16:54)
[2017-09-04 07:41] LABS: MCH 27.3 pg (25.7-33.7); MCHC 32.1 g/dl (32.0-35.9); MEAN CELL VOLUME 85.1 fl (80-96); PLATELET COUNT 198 K/MM3 (134-434); RDW 15.5 % (11.9-15.9); WHITE BLOOD COUNT 10.9 K/mm3 (4.0-10.0)
[2017-09-04 08:19] LABS: ANION GAP 9 (8-16); CALCIUM 8.3 mg/dL (8.5-10.1); CO2 27 mmol/L (21-32); GLUCOSE,RANDOM 195 mg/dL (74-106); MAGNESIUM 1.8 mg/dL (1.8-2.4); PHOSPHOROUS 2.8 mg/dL (2.5-4.9)
[2017-09-04] MEDS ORDERED: PT OWN MED DRAWER 7, Y5N ONE (10:52)
[2017-09-04] MEDS: ATORVASTATIN CA 20 MG TABLET (FP) PO SCH ×2 (10:57→23:51)
[2017-09-04] MEDS: amLODIPine BESYLATE 10 MG TABLET (FP) PO SCH (10:57)
[2017-09-04] MEDS: LOSARTAN 50MG/HCTZ 12.5MG 1 TAB (FP) PO SCH (10:57)
[2017-09-04] MEDS: ASPIRIN 81 MG CHEWABLE TABLETS PO SCH (10:57)
[2017-09-04] MEDS: CLOPIDOGREL BISULFATE 75 MG TABLET (FP) PO SCH (10:57)
[2017-09-04] MEDS: METOPROLOL SUCCINATE 25 MG TAB.SR.24H (FP) PO SCH (10:57)
[2017-09-04] MEDS ORDERED: BISACODYL 10 MG SUPP.RECT RC ONE ×2 (12:15→14:45)
--- NOTE | 2017-09-04 14:46 | PATH ---
Surgical Pathology Report Patient Name: CJ TY Med. Rec. #: [id number] /Age/Gender: 1970 (Age: 47) / M Account: [id number] Location: [facility] MED/SURG Taken: 09/02/2017 Received: 09/03/2017 Reported: 09/04/2017 Physicians: Tate Sorensen M.D. Specimen(s) Received PLAQUE Clinical History Occlusion of femoral artery Final Diagnosis FEMORAL ARTERY, ENDARTERECTOMY: CALCIFIC ATHEROSCLEROSIS. Electronically Signed Jordin Washington M.D. Gross Description Received in formalin labeled "plaque," is a 2.3 x 2.2 x 0.7 cm aggregate of multiple christianson-yellow portions of focally calcified plaque. Salvage W[employer] Inspector sections are submitted in one cassette, following decalcification. 09/03/201709/03/2017
--- NOTE | 2017-09-04 16:58 | PN ---
Progress Note (short form) - Note Progress Note: POD 2 VSS Wounds clean and dry Walking in kc Stable Increase activity
[2017-09-04] MEDS ORDERED: POLYETHYLENE GLYCOL 3350 119 GM BTL PO ONE (22:00)
[2017-09-05] MEDS: INSULIN SLIDING SCALE (NOVOLOG) 1 VIAL SQ SCH ×2 (06:24→12:29)
[2017-09-05] MEDS: HEPARIN NA (PORCINE) 5,000 UNITS/ML 1ML VIAL SQ SCH ×2 (06:24→14:42)
[2017-09-05] MEDS ORDERED: INSULIN (NOVOLOG) ASPART 100 UNITS/ML 10ML VIAL ONE (06:42)
[2017-09-05] MEDS: amLODIPine BESYLATE 10 MG TABLET (FP) PO SCH (10:24)
[2017-09-05] MEDS: METOPROLOL SUCCINATE 25 MG TAB.SR.24H (FP) PO SCH (10:24)
[2017-09-05] MEDS: CLOPIDOGREL BISULFATE 75 MG TABLET (FP) PO SCH (10:24)
[2017-09-05] MEDS: LOSARTAN 50MG/HCTZ 12.5MG 1 TAB (FP) PO SCH (10:25)
[2017-09-05] MEDS: ASPIRIN 81 MG CHEWABLE TABLETS PO SCH (10:25)
--- NOTE | 2017-09-05 13:00 | PN ---
Progress Note (short form) - Note Progress Note: C/o foot swelling, right groin pain. VSS Groin wound with small amount old blood on bandage. Thigh dry Foot warm, PT pulse with Doppler Stable Home today
[2017-09-05 15:10] VITALS: BP 142/90; PULSE 88; TEMP 98.4
--- NOTE | 2017-09-06 21:46 | OP ---
DATE OF OPERATION: 09/02/2017 SURGEON: Tate Sorensen M.D. ELECTRICAL MAINTENANCE MECHANIC: Drake Klein PROCEDURE: Right femoral popliteal bypass with PTFE graft, endarterectomy of femoral and popliteal arteries. 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 ANESTHESIA: General. ANESTHESIOLOGIST: Dr. Curran OPERATIVE FINDINGS: There was severe atherosclerotic plaque within both the right femoral and popliteal arteries with calcification and reduced inflow. OPERATIVE PROCEDURE: Following routine patient identification with side and site verification, general anesthesia was induced. Low catheter was placed. The right leg, groin, and lower abdominal wall were prepped with ChloraPrep and sterilely draped. Timeout was performed. Skin incision was made in the right groin over the femoral pulse and carried down subcutaneous tissues using cautery for hemostasis. The common femoral artery was mobilized at the inguinal ligament and secured with a vessel loop. It was dissected distally. The deep and superficial femoral branches were individually secured. The inguinal ligament was incised to gain access to the distal external iliac artery, which was mobilized. It was encircled with a vessel loop. The circumflex branches were also individually secured. Small side branches of the femoral artery were ligated and divided. A second incision was made in the medial aspect of the distal thigh, carried down to subcutaneous tissue with muscle and fascia with cautery. Care was taken not to disturb the great saphenous vein. Sartorius muscle was reflected posteriorly, and the popliteal space was entered. The popliteal artery was identified and was mobilized with sharp dissection. Crossing veins were ligated with silk ties and clips. The area was mobilized down to the portion behind the knee. Large plaque was felt in the artery, further dissected distally, and secured with vessel loop. Side branches were ligated and divided. A long metal tunneler was then passed deep to the sartorius between the 2 incisions, and an 8-mm ring PTFE graft was passed through the tunnel with care not to twist it. Patient was systemically heparinized. The femoral artery was then occluded proximally in the external iliac and distally with vessel loops on the flow vessels. A longitudinal arteriotomy was made beginning in the proximal superficial femoral, extending up to the point where the large plaque diminished in size. Endarterectomy was required to have adequate lumen for the anastomosis. The plaque was removed proximally the opening of the proximal clamp to ensure inflow. The distal plaque was removed and amputated at the level of the deep femoral artery, where it was adherent. Back bleeding from the deep femoral was good. The proximal portion of the arteriotomy was closed with running suture of 6-0 Prolene, leaving approximately 15-mm opening for the anastomosis. The end of the PTFE graft was beveled and anastomosed to the side of the femoral artery with running suture of 6-0 Prolene. Prior to completion of the suture line, the graft was occluded with a clamp, and the femoral artery and its branches were allowed to back bleed and flush. The lumen was filled with heparin solution. The suture line was completed, and the arteries were released. Bleeding from the suture line was controlled with Gelfoam and thrombin. The graft was pulled taut within its tunnel. The popliteal artery was occluded with bulldog clamps and opened on exposed surface. Plaque was removed with endarterectomy. The distal anastomose was tacked down with interrupted sutures of 6-0 Prolene to prevent dissection. The proximal end of the arteriotomy was closed with a running suture of 6-0 Prolene, leaving approximately 15-mm opening for the anastomosis. The end of the graft was checked for length and then beveled and anastomosed to the side of the artery with running suture of 6-0 Prolene. Upon completion of the suture line, the artery was allowed to back bleed and flush, and the graft was flushed. The suture line was then completed and flow was then restored with removal of all clamps. Evaluation of the hand-held Doppler revealed good flow in the distal popliteal artery and posterior tibial artery above the ankle. Gelfoam and thrombin was applied to the suture lines. Protamine was administered. Hemostasis was adequate. The wounds were irrigated and closed with interrupted sutures of 3-0 Vicryl on the muscle, fascia, and subcutaneous tissue. The inguinal ligament was repaired with [id number] sutures of 2-0 Vicryl. Skin leilani were placed. Sterile dressings were then applied, and the patient was extubated and taken to the recovery room in stable condition. Vitaly [id number] [facility]INALLY INSANEGilbert
== END 2017-09-05 15:49 | disposition home or self-care (01) | DRG 272 ==
LOC: JSAMEDAYSX 08:10 → EDSTATUS 10:00 → JICU 18:06 → J8W 09-03 16:48
PROVIDERS: ADMIT Surgery; ATTEND Surgery
PROC: 04CM3ZZ Extirpation of Matter from Right Popliteal Artery, Percutaneous Approach (ICD-10-PCS; 2017-09-02)
PROC: 04CK3ZZ Extirpation of Matter from Right Femoral Artery, Percutaneous Approach (ICD-10-PCS; principal; 2017-09-02 10:00)
DX: I70.211 Atherosclerosis of native arteries of extremities with intermittent claudication, right leg (principal); I25.10 Atherosclerotic heart disease of native coronary artery without angina pectoris; I10 Essential (primary) hypertension; E78.5 Hyperlipidemia, unspecified; I73.9 Peripheral vascular disease, unspecified; E11.40 Type 2 diabetes mellitus with diabetic neuropathy, unspecified
CPT/HCPCS: 36415; 80048; 83735; 84100; 85025; 85027; 85730; 86850; 86900; 86901; 88304-TC; 88311-TC; 94760; 97116-GP; 97161-GP; J1644

== ENCOUNTER 2017-09-23 09:17 | Inpatient (IN) | payer OTHER ==
[2017-09-23 09:23] VITALS: BMI 37.2
--- NOTE | 2017-09-23 10:24 | PDOC ---
Attending Attestation - Resident Resident Name: Caesar Cruz - ED Attending Attestation I have performed the following: I have examined & evaluated the patient, The case was reviewed & discussed with the resident, I agree w/resident's findings & plan, Exceptions are as noted - HPI HPI: 09/23/17 10:51 THis is a 47 yo M that is 3 week s/p Fem pop bypass who presents to the ER due to 1 week of persistent drainage from the right lower extremity surgical site No trauma to the area No pain No fevers or chills Pt states he has had a large volume of fluid draining from his surgical site Pt denies pain in his foot Pt is ambulatory with no difficulty - Physicial Exam PE: 09/23/17 10:53 RLE: Surgical site noted to have active drainage at one particular location Fluid is cloudy No surrounding erythema or warmth Non tender - Medical Decision Making 09/23/17 10:57 47 yo M presenting to the ER with persistent post operative drainage after Fem- pop bypass No systemic signs of illness DD: fluid collection/seroma vs. abscess Will do: labs EKG ?US Consult Dr Sorensen Case reviewed with Dr Sorensen He will admit this patient to his service Pt seen in the ER by ALLYN Unger Clinical Impression: seroma vs. abscess, initial presentation
--- NOTE | 2017-09-23 10:28 | PDOC ---
History of Present Illness - General Chief Complaint: Wound Stated Complaint: POST SURG COMPLICATIONS Time Seen by Provider: 09/23/17 10:22 - History of Present Illness Initial Comments: 09/23/17 11:43 The patient is a 47 year old male with a history of IDDM (insulin pump), HTN, HLD, neuropathy, PAD (s/p left fem art stent x 1) who presents for evaluation for concerns of a post-surgical wound infection. The patient reports have a stent and vascular graft placed 09/02/17. He reports that over the past 1 week , he has been experiencing increasing purulent drainage from the wound to his right leg. He began experiencing some pain earlier today prompting his admission to the ED for evaluation. He denies fevers, chills, SOB, chest pain, abdominal pain, or changes with urination or bowel movements. Past History - Past Medical History Allergies/Adverse Reactions: Allergies Allergy/AdvReac Type Severity Reaction Status Date / Time No Known Allergies Allergy Verified 09/23/17 09:24 Home Medications: Ambulatory Orders Aspirin [ASA -] 81 mg PO DAILY 04/04/15 Insulin Pump Syringe, 1.8 ml [Thinset] 1 each MC DAILY 10/21/16 Amlodipine Besylate 10 mg PO DAILY 03/02/17 Atorvastatin Ca [Lipitor] 20 mg NR DAILY 03/02/17 Losartan/Hydrochlorothiazide [Losartan-Hctz 50-12.5 mg Tab] 1 each PO DAILY 09/06 Clopidogrel Bisulfate [Plavix -] 75 mg PO DAILY 09/02/17 Ibuprofen [Advil -] 400 mg PO PRN PRN 09/02/17 Metoprolol Succinate [Toprol XL -] 25 mg PO DAILY 09/02/17 Anemia: No Asthma: No Cancer: No Cardiac Disorders: No CVA: No COPD: No CHF: No Dementia: No Diabetes: Yes (IDDM, INSULIN PUMP) GI Disorders: No Disorders: No HTN: Yes Hypercholesterolemia: Yes Liver Disease: No Seizures: No Thyroid Disease: No - Surgical History Lung Surgery: Yes (lung tumor removed at age 4) Orthopedic Surgery: Yes (LFT carpal tunnel syndrome,LFT rotator muscles) - Immunization History Immunization Up to Date: Yes - Suicide/Smoking/Psychosocial Hx Smoking History: Never smoked Have you smoked in the past 12 months: Yes Number of Cigarettes Smoked Daily: 10 If you are a former smoker, when did you quit?: 10/2014 'Breaking Loose' booklet given: 02/01/14 Hx Alcohol Use: Yes (SOCIAL) Drug/Substance Use Hx: No Substance Use Type: None Hx Substance Use Treatment: No Review of Systems - Review of Systems Comments:: 09/23/17 11:46 Constitutional: No fevers, chills, fatigue, malaise HEENT: No Rhinorrhea, nasal congestion, visual changes Cardiovascular: No chest pain, syncope, palpitations, lightheadedness Respiratory: No Cough, SOB, Hemoptysis, Gastrointestinal: No Abdominal pain, Nausea, Vomiting, Constipation, Diarrhea, Melena Genitourinary: No Dysuria, Frequency, Urgency, Hesitancy, Hematuria, Flank pain Musculoskeletal: Right lower extremity surgical wound drainage. No Myalgia, arthralgia Skin: No rashes, bruising, pallor Neurologic: No Headache, Dizziness, Numbness, Weakness, or Tingling Psychiatric: No Hallucinations. No SI or HI *Physical Exam - Vital Signs Last Vital Signs Temp Pulse Resp BP Pulse Ox 98.7 F 111 H 20 145/55 100 09/23/17 09:20 09/23/17 09:20 09/23/17 09:20 09/23/17 09:20 09/23/17 09:20 - Physical Exam Comments: 09/23/17 11:47 General Appearance: Nourished. No Apparent Distress HEENT: EOMI, BEREKET. No Pharyngeal Erythema, Tonsillar Exudate, Tonsillar Erythema Neck: No Cervical Lymphadenopathy Respiratory/Chest: Lungs Clear, Normal Breath Sounds. No Crackles, Rales, Rhonchi, Wheezing Cardiovascular: Regular Rhythm, Regular Rate. No Murmur, Gallops, Rubs Gastrointestinal/Abdominal: Normal Bowel Sounds, Soft. No Guarding, Rebound, Tenderness Musculoskeletal: No CVA Tenderness Extremity: 5 cm surgical wound to the medial aspect of the right thigh with some surrounding erythema and draining purulent fluid. 2+ dp pulses noted bilaterally. Normal Capillary Refill Integumentary: Normal Color, Dry, Warm Neurologic: Fully Oriented, Alert, Normal Mood/Affect, Normal Response, ED Treatment Course - LABORATORY CBC & Chemistry Diagram: 09/23/17 11:24 09/23/17 11:24 Medical Decision Making - Medical Decision Making 09/23/17 11:50 The patient is a 47 year old male with a history of IDDM (insulin pump), HTN, HLD, neuropathy, PAD (s/p left fem art stent x 1) who presents for evaluation for concerns of a post-surgical wound infection. Differential includes but is not limited to: Wound infection, cellulitis, metabolic derangement. Given the physical exam of the patient, it is likely the patient has a wound infection although he does not demonstrate signs of a systemic infection. We will obtain a cbc, cmp, coags, blood cultures and a wound culture. We will continue to monitor and reassess. 09/23/17 13:27 CBC, cmp, coags are unremarkable. We believe the patient requires admission for IV antibiotics and further management at this time. We discussed the case with Dr. Sorensen the patient's surgeon who accepted the patient for admission given that the patient's diagnosis is a post op infection. We will cover the patient with vancomycin here in the ED. *DC/Admit/Observation/Transfer Diagnosis at time of Disposition: Post op infection Qualifiers: Encounter type: initial encounter Qualified Code(s): T81.4XXA - Infection following a procedure, initial encounter - Discharge Dispostion Condition at time of disposition: Guarded Admit: Yes - Referrals Referrals: Nikolay Cooper MD [Primary Care Provider] - - Patient Instructions - Post Discharge Activity
[2017-09-23 11:46] LABS: BASO % 0.4 % (0-2.0); EOS % 2.1 % (0-4.5); HEMATOCRIT 38.2 % (35.4-49); HEMOGLOBIN 12.2 GM/dL (11.7-16.9); LYMPH % 23.9 % (8-40); MCH 26.9 pg (25.7-33.7); MCHC 31.9 g/dl (32.0-35.9); MEAN CELL VOLUME 84.2 fl (80-96); MEAN PLT VOLUME 7.6 fl (7.5-11.1); MONO % 7.6 % (3.8-10.2); PLATELET COUNT 298 K/MM3 (134-434); RBC 4.54 M/mm3 (4.00-5.60); RDW 14.7 % (11.9-15.9); WHITE BLOOD COUNT 9.9 K/mm3 (4.0-10.0)
[2017-09-23 12:00] LABS: INR 1.03 (0.82-1.09); PROTHROMBIN TIME (PATIENT) 11.6 SEC (9.98-11.88)
[2017-09-23 12:02] LABS: ACTIVATED PTT 28.5 SECONDS (26.9-34.4)
[2017-09-23 12:19] LABS: ALK PHOS 158 U/L (45-117); ANION GAP 8 (8-16); BILIRUBIN,TOTAL 0.4 mg/dL (0.2-1.0); BLOOD UREA NITROGEN 21 mg/dL (7-18); CALCIUM 8.6 mg/dL (8.5-10.1); CHLORIDE 100 mmol/L (98-107); CO2 29 mmol/L (21-32); CREATININE 1.2 mg/dL (0.7-1.3); GLUCOSE,RANDOM 160 mg/dL (74-106); POTASSIUM 3.6 mmol/L (3.5-5.1); SGOT/AST 7 U/L (15-37); SGPT/ALT 22 U/L (12-78); SODIUM 137 mmol/L (136-145); TOT PROT 6.8 g/dl (6.4-8.2)
[2017-09-23] MEDS ORDERED: VANCOMYCIN 1,250 MG in DEXTROSE 5%-WATER - 250 ML IVPB ONE (13:30)
[2017-09-23] MEDS ORDERED: morphine CARPU-JECT 4 MG/1 ML DISP.SYRIN IVPUSH ONE (13:41)
--- NOTE | 2017-09-23 13:48 | HP ---
Addendum entered and electronically signed by Anupam Unger PA 09/23/17 19:47: Blood Type: A+ INR: 1.08 RLE U/S: exam limited due to overlying bandage. Edematous tissue surrounding the graft, with no definite collection identified. Occluded PTFE graft. Original Note: Admitting History and Physical - Admission Chief Complaint: RLE infection/swelling/drainage History of Present Illness: 47 yo male well known to Dr. Reyes. s/p Right femoro-popliteal bypass with PTFE. Endarterectomy femoral and popliteal arteries on 09/02/17. Comes to ER for further evaluation of RLE incision. States it's swollen, hot and draining constantly. Initially, drainage started from superior pole of his thigh incision. Now, it's only coming from the lower pole of wound. His groin and thigh gwen are still in place. States he's followed-up with Dr. reyes for his normal post-op check-up as instructed. Taking care of wound as instructed prior too his discharge. According to Dr. Reyes, the RLE graft is thrombosed discovered during his post-op visit. Currently, patient denies n/v /f/c, CP, SOB. History Source: Patient Limitations to Obtaining History: No Limitations - Past Medical History Cardiovascular: Yes: HTN, Hyperlipdemia, Other (PAD) Gastrointestinal: Yes: Other (Obesity) Renal/: Yes: Renal Inusuff. No: Hemodialysis Infectious Disease: Yes: Other (multiple boils) Endocrine: Yes: Diabetes Mellitus (insulin dependent, has Insulin Pump) - Past Surgical History Additional Past Surgical History: RLE femmoro-popliteal bypass w/ PTFE 09/02/17 LLE angiogram at [place] & Cardiac catheterization 10/2014 Lung tumor removed at age 4) Left rotator cuff repair Left carpal tunnel repair - Smoking History Smoking history: Never smoked Have you smoked in the past 12 months: Yes Aproximately how many cigarettes per day: 10 If you are a former smoker, when did you quit?: 10/2014 - Alcohol/Substance Use Hx Alcohol Use: Yes (SOCIAL) History of Substance Use: reports: Marijuana - Social History ADL: Independent 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 History of Recent Travel: Yes ([place] 2 weeks ago) <Cadan,Anupam P - Last Filed: 09/23/17 13:57> Home Medications <Anupam Unger P - Last Filed: 09/23/17 13:57> <Tate Reyes - Last Filed: 09/24/17 11:25> - Allergies Allergies/Adverse Reactions: Allergies Allergy/AdvReac Type Severity Reaction Status Date / Time No Known Allergies Allergy Verified 09/23/17 09:24 - Home Medications Home Medications: Ambulatory Orders Aspirin [ASA -] 81 mg PO DAILY 04/04/15 Insulin Pump Syringe, 1.8 ml [Thinset] 1 each MC DAILY 10/21/16 Amlodipine Besylate 10 mg PO DAILY 03/02/17 Atorvastatin Ca [Lipitor] 20 mg NR DAILY 03/02/17 Losartan/Hydrochlorothiazide [Losartan-Hctz 50-12.5 mg Tab] 1 each PO DAILY 09/06 Clopidogrel Bisulfate [Plavix -] 75 mg PO DAILY 09/02/17 Ibuprofen [Advil -] 400 mg PO PRN PRN 09/02/17 Metoprolol Succinate [Toprol XL -] 25 mg PO DAILY 09/02/17 Family Disease History - Family Disease History Family Disease History: Diabetes: Father, Heart Disease: Mother ( [place]) <Anupam Unger P - Last Filed: 09/23/17 13:57> Review of Systems - Review of Systems Constitutional: reports: No Symptoms Eyes: reports: No Symptoms HENT: reports: No Symptoms Neck: reports: No Symptoms Cardiovascular: reports: No Symptoms Respiratory: reports: No Symptoms Gastrointestinal: reports: No Symptoms Genitourinary: reports: No Symptoms Musculoskeletal: reports: No Symptoms Integumentary: reports: Incision (Right groin and thigh (medial aspect)) Neurological: reports: No Symptoms Endocrine: reports: No Symptoms <Anupam Unger P - Last Filed: 09/23/17 13:57> Physical Examination Vital Signs: Vital Signs Temperature 98.7 F 09/23/17 09:20 Pulse Rate 111 H 09/23/17 09:20 Respiratory Rate 20 09/23/17 09:20 Blood Pressure 145/55 09/23/17 09:20 O2 Sat by Pulse Oximetry (%) 98 09/23/17 10:38 Constitutional: Yes: Well Nourished, No Distress, Calm Eyes: Yes: WNL, Conjunctiva Clear, EOM Intact HENT: Yes: WNL, Atraumatic, Normocephalic Neck: Yes: WNL, Supple Cardiovascular: Yes: WNL, Regular Rate and Rhythm Respiratory: Yes: WNL, Regular, CTA Bilaterally Gastrointestinal: Yes: WNL, Normal Bowel Sounds, Abdomen, Obese Extremities: Yes: Other (Right groin gwen intact. Minimla tissue maceration. Edges approximated. Small palpable mas at inferior pole of wound. No erythema or drainage. Right thigh (medial aspect) Gwen intact. Periwound erythema. + seropurulent drainage from distal pole of wound. + TTP.) Edema: RLE: 1+ Peripheral Pulses: Left Doralis Pedis: 2+, Right Dorsalis Pedis: 1+ Wound/Incision: Yes: [place] Removed (from right groin after physical exam. 3/4 of thigh gwen removed) Neurological: Yes: WNL, Alert, Oriented ...Motor Strength: WNL Psychiatric: Yes: WNL, Alert, Oriented Labs: GAEL GIORDANO 09/23/17 11:24 09/23/17 11:24 <Anupam Unger - Last Filed: 09/23/17 13:57> Vital Signs: Vital Signs Temperature 99.2 F 09/24/17 10:00 Pulse Rate 97 H 09/24/17 10:00 Respiratory Rate 20 09/24/17 10:00 Blood Pressure 132/82 09/24/17 10:00 O2 Sat by Pulse Oximetry (%) 99 09/23/17 21:00 Labs: CBCGAEL 09/24/17 06:45 09/24/17 06:45 <Tate Reyes - Last Filed: 09/24/17 11:25> Problem List - Problems (1) Post op infection Assessment/Plan: 47 yo male s/p femmoro-popliteal bypass with PTFE, comes back to OR with presumed post-op infection. Actively draining seropurulent fluid. Admit to Dr. Reyes's service Groin gwen removed and clean dry dressing applied. 3/4 of thigh gwen removed. Distal pole opened and flushed with copious NS. Packed with moist 4x4 Broad spectrum IV antibiotics f/u culture Monitor blood glucose Insulin pump CBC, BMP in AM Coags Type and screen Will need to have RLE graft thrombectomy on this visit f/u U/S to eval for fluid collection around graft Above plan discussed with Dr. Reyes and agrees Code(s): T81.4XXA - INFECTION FOLLOWING A PROCEDURE, INITIAL ENCOUNTER QualifierTitle: Encounter type: initial encounter Qualified Code(s): T81.4XXA - Infection following a procedure, initial encounter (2) Obesity Code(s): E66.9 - OBESITY, UNSPECIFIED (3) PAD (peripheral artery disease) Code(s): I73.9 - PERIPHERAL VASCULAR DISEASE, UNSPECIFIED <Anupam Unger - Last Filed: 09/23/17 13:57> Assessment/Plan History reviewed, patient examined. No fever, WBC normal Duplex does not show perigraft fluid. Wound with old seroganguinous fuid draining. Pack with dry gauze, bedrest, IV Unayn. Graft thrombosis will be treated with thrombectomy once incision has started to heal. <Tate Reyes - Last Filed: 09/24/17 11:25>
[2017-09-23] MEDS ORDERED: IBUPROFEN 200 MG TABLET PO PRN ×2 (14:07→14:34)
[2017-09-23] MEDS ORDERED: morphine CARPU-JECT 10 MG/1 ML DISP.SYRIN ONE (14:20)
[2017-09-23] MEDS: AMPICILLIN NA/SULBACTAM NA 1.5 GM in DEXTROSE 5%-WATER - 100 ML IVPB SCH ×2 (16:35→23:21)
[2017-09-23] MEDS: INSULIN SLIDING SCALE (NOVOLOG) 1 VIAL SQ SCH (17:36)
[2017-09-23 18:01] LABS: INR 1.08 (0.82-1.09); PROTHROMBIN TIME (PATIENT) 12.2 SEC (9.98-11.88)
[2017-09-23] MEDS ORDERED: oxyCODONE HCL 5 MG TABLET PO PRN (23:04)
[2017-09-23] MEDS: ACETAMINOPHEN 325 MG TABLET (FP) PO PRN (23:21)
[2017-09-23] MEDS: oxyCODONE HCL 5 MG TABLET PO PRN (23:21)
[2017-09-24] MEDS: AMPICILLIN NA/SULBACTAM NA 1.5 GM in DEXTROSE 5%-WATER - 100 ML IVPB SCH ×4 (04:00→23:35)
[2017-09-24] MEDS: INSULIN SLIDING SCALE (NOVOLOG) 1 VIAL SQ SCH ×3 (06:07→17:32)
[2017-09-24 07:35] LABS: HEMOGLOBIN 11.2 GM/dL (11.7-16.9); MCH 26.7 pg (25.7-33.7); MCHC 31.9 g/dl (32.0-35.9); MEAN CELL VOLUME 83.8 fl (80-96); MEAN PLT VOLUME 7.6 fl (7.5-11.1); PLATELET COUNT 283 K/MM3 (134-434); RBC 4.17 M/mm3 (4.00-5.60); RDW 14.8 % (11.9-15.9); WHITE BLOOD COUNT 9.3 K/mm3 (4.0-10.0)
[2017-09-24 08:02] LABS: ANION GAP 10 (8-16); BLOOD UREA NITROGEN 13 mg/dL (7-18); CALCIUM 8.3 mg/dL (8.5-10.1); CHLORIDE 99 mmol/L (98-107); CO2 28 mmol/L (21-32); CREATININE 1.1 mg/dL (0.7-1.3); GLUCOSE,RANDOM 186 mg/dL (74-106); POTASSIUM 3.6 mmol/L (3.5-5.1); SODIUM 137 mmol/L (136-145)
[2017-09-24] MEDS: ACETAMINOPHEN 325 MG TABLET (FP) PO PRN (09:14)
[2017-09-24] MEDS: oxyCODONE HCL 5 MG TABLET PO PRN ×2 (09:14→23:36)
[2017-09-24] MEDS ORDERED: INSULIN PUMP MC SCH (10:00)
[2017-09-24] MEDS ORDERED: [UNRECOGNIZED DRUG - OTHER] MC SCH (10:00)
[2017-09-24] MEDS: amLODIPine BESYLATE 10 MG TABLET (FP) PO SCH (11:36)
[2017-09-24] MEDS: METOPROLOL SUCCINATE 25 MG TAB.SR.24H (FP) PO SCH (11:36)
[2017-09-24] MEDS: HYDROCHLOROTHIAZIDE 12.5 MG CAPSULE (FP) PO SCH (11:36)
[2017-09-24] MEDS: CLOPIDOGREL BISULFATE 75 MG TABLET (FP) PO SCH (11:37)
[2017-09-24] MEDS: LOSARTAN POTASSIUM 50 MG TABLET (FP) PO SCH (11:37)
[2017-09-24] MEDS: ASPIRIN 81 MG CHEWABLE TABLETS PO SCH (11:37)
[2017-09-24] MEDS ORDERED: INSULIN (NOVOLOG) ASPART 100 UNITS/ML 10ML VIAL ONE ×2 (11:50→17:37)
[2017-09-24] MEDS: ATORVASTATIN CA 20 MG TABLET (FP) PO SCH (23:36)
[2017-09-25] MEDS: AMPICILLIN NA/SULBACTAM NA 1.5 GM in DEXTROSE 5%-WATER - 100 ML IVPB SCH ×4 (02:59→21:18)
[2017-09-25] MEDS: INSULIN SLIDING SCALE (NOVOLOG) 1 VIAL SQ SCH ×3 (06:38→16:39)
[2017-09-25] MEDS: METOPROLOL SUCCINATE 25 MG TAB.SR.24H (FP) PO SCH (09:00)
[2017-09-25] MEDS: HYDROCHLOROTHIAZIDE 12.5 MG CAPSULE (FP) PO SCH (09:00)
[2017-09-25] MEDS: ASPIRIN 81 MG CHEWABLE TABLETS PO SCH (09:00)
[2017-09-25] MEDS: amLODIPine BESYLATE 10 MG TABLET (FP) PO SCH (09:00)
[2017-09-25] MEDS: LOSARTAN POTASSIUM 50 MG TABLET (FP) PO SCH (09:00)
[2017-09-25] MEDS: CLOPIDOGREL BISULFATE 75 MG TABLET (FP) PO SCH (09:00)
[2017-09-25] MEDS: oxyCODONE HCL 5 MG TABLET PO PRN (09:01)
[2017-09-25] MEDS: ACETAMINOPHEN 325 MG TABLET (FP) PO PRN (09:01)
--- NOTE | 2017-09-25 12:29 | PN ---
Progress Note (short form) - Note Progress Note: Resting comfortably. States his right thigh feels much better today. Denies n/v/f/c Afebrile. AVSS Microbio (prelim) --> Proteus Mirabilis & Strep Agalactiae Gen: alert. nad RLE: wound open at inferior pole. Serosanguinous drainage on dressing. Erythema decreased. No foul odor. No induration/bogginess. Problem List - Problems (1) Post op infection Assessment/Plan: Will open wound today then place VAC. Will remain on Unasyn until final report comes back with sensitivity Code(s): T81.4XXA - INFECTION FOLLOWING A PROCEDURE, INITIAL ENCOUNTER Qualifiers: Encounter type: initial encounter Qualified Code(s): T81.4XXA - Infection following a procedure, initial encounter (2) Obesity Code(s): E66.9 - OBESITY, UNSPECIFIED (3) PAD (peripheral artery disease) Code(s): I73.9 - PERIPHERAL VASCULAR DISEASE, UNSPECIFIED
[2017-09-25] MEDS ORDERED: LIDOCAINE HCL 1%, 10 MG/ML (20ML VIAL) ONE (12:43)
--- NOTE | 2017-09-25 13:19 | PROC ---
Procedure Note Procedure: After speaking with Dr. Sorensen, he asked that I open his RLE incision more and evaluate tissue. If clean we will place a wound VAC. Informed consent obtained from patient and placed in his paper chart. INR 1.08 RLE thigh (medial) prepped and draped in sterile fashion Skin anest w/ 30mL Lidocaine 1% Skin incised over old scar. Copious seropurulent fluid drained. Tissue debrided (fat necrosis). Muscle viable. PTFE graft exposed at proximal portion of wound. Wound irrigated. Packed with saturated kerlix/abd/benito Patient tolerated procedure well. Keep on Unasyn until sensitivity report finalized Dr. Sorensen notified of findings -> patient will need graft removed on this hospital visit. -> medical optimization & cardio clearance for impending procedure.
--- NOTE | 2017-09-25 13:51 | CON.CARD ---
Consult Consult Specialty:: Cardiology Referred by:: Tate Reyes MD Reason for Consultation:: Pre-operative cardiovascular evaluation - History of Present Illness Chief Complaint: LE infection/swelling/drainage History of Present Illness: 47 yo male well known to Dr. Reyes PADs/p Right femoro-popliteal bypass with PTFE. Endarterectomy femoral and popliteal arteries on 09/02/17, HTN hyperlipidemia, DM, CKD, 2 vessel CAD on 11/10/2014 small vessels for medical therapy Comes to ER for further evaluation of RLE incision. States it's swollen, hot and draining constantly. Initially, drainage started from superior pole of his thigh incision. Now, it's only coming from the lower pole of wound. His groin and thigh leilani are still in place. States he's followed-up with Dr. reyes for his normal post-op check-up as instructed. Taking care of wound as instructed prior too his discharge. According to Dr. Reyes, the RLE graft is thrombosed discovered during his post-op visit. Currently, patient denies n/v/f/c, CP, SOB. - Past Medical History Cardiovascular: Yes: HTN, Hyperlipdemia, Other (PAD) Gastrointestinal: Yes: Other (Obesity) Renal/: Yes: Renal Inusuff. No: Hemodialysis Infectious Disease: Yes: Other (multiple boils) Endocrine: Yes: Diabetes Mellitus (insulin dependent, has Insulin Pump) - Past Surgical History Additional Past Surgical History: RLE femmoro-popliteal bypass w/ PTFE 09/02/17 LLE angiogram at [place] & Cardiac catheterization 10/2014 Lung tumor removed at age 4) Left rotator cuff repair Left carpal tunnel repair - Past Medical History Cardio/Vascular: Yes: HTN, Hyperlipdemia, Other (PAD) Gastrointestinal: Yes: Other (Obesity) Renal/: Yes: Renal Inusuff. 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 History of Recent Travel: Yes ([place] 2 weeks ago) Home Medications - Allergies Allergies/Adverse Reactions: Allergies Allergy/AdvReac Type Severity Reaction Status Date / Time No Known Allergies Allergy Verified 09/23/17 09:24 - Home Medications Home Medications: Ambulatory Orders Aspirin [ASA -] 81 mg PO DAILY 04/04/15 Insulin Pump Syringe, 1.8 ml [Thinset] 1 each MC DAILY 10/21/16 Amlodipine Besylate 10 mg PO DAILY 03/02/17 Atorvastatin Ca [Lipitor] 20 mg NR DAILY 03/02/17 Losartan/Hydrochlorothiazide [Losartan-Hctz 50-12.5 mg Tab] 1 each PO DAILY 09/06 Clopidogrel Bisulfate [Plavix -] 75 mg PO DAILY 09/02/17 Ibuprofen [Advil -] 400 mg PO PRN PRN 09/02/17 Metoprolol Succinate [Toprol XL -] 25 mg PO DAILY 09/02/17 Family Disease History - Family Disease History Family Disease History: Diabetes: Father, Heart Disease: Mother ( [place]) Vital Signs: Vital Signs Temperature 97.9 F 09/25/17 09:00 Pulse Rate 100 H 09/25/17 09:00 Respiratory Rate 20 09/25/17 09:00 Blood Pressure 130/88 09/25/17 09:00 O2 Sat by Pulse Oximetry (%) 99 09/24/17 21:00 - Other Data Labs, Other Data: CBC, BMP 09/24/17 06:45 09/24/17 06:45 INR, PTT INR 1.08 (0.82-1.09) 09/23/17 17:25
--- NOTE | 2017-09-25 14:23 | CON.CARD ---
Cardiology Consult (text) - Consultation Consultation Note: Cardiology Consult Dictated IMP: Occluded RLE bypass graft Non-obstx CAD Chronic HTN REC: No cardiac contraindication to revision of RLE graft/ thrombectomy or PTCA. Continue home BP meds. Will follow post op.
--- NOTE | 2017-09-25 15:14 | EKG ---
Test Reason : Blood Pressure : / mmHG Vent. Rate : 080 BPM Atrial Rate : 080 BPM P-R Int : 164 ms QRS Dur : 092 ms QT Int : 382 ms P-R-T Axes : 057 -03 025 degrees QTc Int : 440 ms NORMAL SINUS RHYTHM NORMAL ECG WHEN COMPARED WITH ECG OF 21-OCT-2016 13:06, NO SIGNIFICANT CHANGE WAS FOUND Confirmed by SULTANA BARTLETT MD ([id number]) on 09/25/2017 3:13:57 PM Referred By: Confirmed By:SULTANA BARTLETT MD
[2017-09-25] MEDS ORDERED: PT OWN MED DRAWER 7, Y5N ONE (15:24)
--- NOTE | 2017-09-25 15:56 | CONS ---
DATE OF CONSULTATION: DATE OF DICTATION: 09/25/2017 PERIOPERATIVE CARDIAC CONSULTATION REQUESTED BY: Tate Sorensen MD REASON FOR CONSULTATION: Perioperative cardiac evaluation. HISTORY OF PRESENT ILLNESS: Patient is a 46-year-old gentleman with past medical history of hypertension, hyperlipidemia, diabetes, nonobstructive coronary artery disease on catheterization in 2014, peripheral arterial disease status post right internal iliac stent, now status post right lower extremity bypass in late August 2017. He presents to the ER for continuous drainage of the incision and was found to have an occluded graft. The plan is for revision of this graft, and I was asked to see him in perioperative consultation. REVIEW OF SYSTEMS: He denies chest pain, shortness of breath, palpitations, PND, orthopnea. The remained of the cardiac review of systems was comprehensively normal. CURRENT MEDICATIONS: At home include, aspirin 81 daily, losartan HCT 50/12.5 mg daily, Norvasc 5 mg daily, Lipitor 20 mg daily, Linzess, and an insulin pump. ALLERGIES: None. SOCIAL HISTORY: He is a smoker, but denies alcohol or illicit drugs. FAMILY HISTORY: His mother of an CT at 42 and father at the age of 76. PHYSICAL EXAMINATION: General: He is comfortable, in no distress. Vital Signs: Temperature 97.9, pulse 95 regular, blood pressure 130/85, O2 saturation 99 on room air. Neck: No bruits or JVD. Heart: S1, S2 regular. No murmurs. Chest: Clear to auscultation and percussion bilaterally. Abdomen: Soft, nontender. Extremities: Right lower extremity is wrapped in sterile gauze. The left lower extremity demonstrates no edema. LABORATORY: White count 9.3, hematocrit 35, platelets 283. INR 1.08. Sodium 137, potassium 3.6. Creatinine 1.1. There is currently no EKG in the chart to review, but one will be ordered. Previous EKGs have shown normal sinus rhythm. CARDIAC DATA: Catheterization October 2014: Nonobstructive coronary disease with 40% LAD, OM 80%, small vessel; mid-RCA 80%, small vessel, not intervened on. Nuclear stress test done with Persantine in February 2017 showed no ischemia with EF 58%. IMPRESSION: 1. Occluded right lower extremity bypass graft. 2. Chronic hypertension. RECOMMENDATIONS: There are no cardiac contraindications to the planned right lower extremity graft revision/thrombectomy/PTCA if needed. Continue home blood pressure medications, blood pressure is currently well controlled, and he is euvolemic in sinus rhythm. A baseline ECG will be obtained. We will follow postop. Thank you for the consultation. SULTANA BARTLETT M.D. [id number]
[2017-09-25] MEDS: ATORVASTATIN CA 20 MG TABLET (FP) PO SCH (21:18)
[2017-09-26] MEDS: oxyCODONE HCL 5 MG TABLET PO PRN ×2 (00:09→23:04)
[2017-09-26] MEDS: ACETAMINOPHEN 325 MG TABLET (FP) PO PRN ×2 (00:10→23:05)
[2017-09-26] MEDS: AMPICILLIN NA/SULBACTAM NA 1.5 GM in DEXTROSE 5%-WATER - 100 ML IVPB SCH ×4 (02:45→22:58)
[2017-09-26] MEDS: INSULIN SLIDING SCALE (NOVOLOG) 1 VIAL SQ SCH ×3 (06:08→17:28)
[2017-09-26] MEDS ORDERED: PT OWN MED DRAWER 7, Y5N ONE (09:28)
[2017-09-26] MEDS: CLOPIDOGREL BISULFATE 75 MG TABLET (FP) PO SCH (09:31)
[2017-09-26] MEDS: amLODIPine BESYLATE 10 MG TABLET (FP) PO SCH (09:31)
[2017-09-26] MEDS: LOSARTAN POTASSIUM 50 MG TABLET (FP) PO SCH (09:31)
[2017-09-26] MEDS: ASPIRIN 81 MG CHEWABLE TABLETS PO SCH (09:31)
[2017-09-26] MEDS: HYDROCHLOROTHIAZIDE 12.5 MG CAPSULE (FP) PO SCH (09:31)
[2017-09-26] MEDS: METOPROLOL SUCCINATE 25 MG TAB.SR.24H (FP) PO SCH (09:31)
--- NOTE | 2017-09-26 10:26 | PN ---
Progress Note, Physician Chief Complaint: no acute distress - Current Medication List Current Medications: Active Medications Acetaminophen (Tylenol -) 325 mg PO Q6H PRN PRN Reason: PAIN Last Admin: 09/26/17 00:10 Dose: 325 mg Acetaminophen (Tylenol -) 650 mg PO Q6H PRN PRN Reason: PAIN Last Admin: 09/24/17 09:14 Dose: 650 mg Amlodipine Besylate (Norvasc -) 10 mg PO DAILY [facility] Last Admin: 09/26/17 09:31 Dose: 10 mg Aspirin (Asa -) 81 mg PO DAILY [facility] Last Admin: 09/26/17 09:31 Dose: 81 mg Atorvastatin Calcium (Lipitor -) 20 mg PO HS [facility] Last Admin: 09/25/17 21:18 Dose: 20 mg Clopidogrel Bisulfate (Plavix -) 75 mg PO DAILY [facility] Last Admin: 09/26/17 09:31 Dose: 75 mg Hydrochlorothiazide (Hctz -) 12.5 mg PO DAILY [facility] Last Admin: 09/26/17 09:31 Dose: 12.5 mg Ampicillin Sodium/Sulbactam (Sodium 1.5 gm/ Dextrose) 100 mls @ 200 mls/hr IVPB Q6H-IV [facility] Last Admin: 09/26/17 09:31 Dose: 200 mls/hr Ibuprofen (Advil -) 400 mg PO Q6H PRN PRN Reason: PAIN Insulin Aspart (Novolog Vial Sliding Scale -) 1 vial SQ TIDAC [facility] PRN Reason: Protocol Last Admin: 09/26/17 06:08 Dose: 6 units Losartan Potassium (Cozaar -) 50 mg PO DAILY [facility] Last Admin: 09/26/17 09:31 Dose: 50 mg Metoprolol Succinate (Toprol Xl -) 25 mg PO DAILY [facility] Last Admin: 09/26/17 09:31 Dose: 25 mg Oxycodone HCl (Roxicodone -) 5 mg PO Q6H PRN PRN Reason: MODERATE PAIN Oxycodone HCl (Roxicodone -) 10 mg PO Q6H PRN PRN Reason: SEVERE PAIN Last Admin: 09/26/17 00:09 Dose: 10 mg - Objective Vital Signs: Vital Signs Temperature 97.9 F 09/26/17 09:35 Pulse Rate 104 H 09/26/17 09:35 Respiratory Rate 20 01/06/18 09:35 Blood Pressure 137/87 01/06/18 09:35 O2 Sat by Pulse Oximetry (%) 98 09/25/17 21:00 Constitutional: Yes: No Distress, Calm Cardiovascular: Yes: Regular Rate and Rhythm Respiratory: Yes: CTA Bilaterally Gastrointestinal: Yes: Soft Edema: No Neurological: Yes: Alert, Oriented ...Motor Strength: WNL Labs: CBC, BMP 09/24/17 06:45 09/24/17 06:45 INR, PTT INR 1.08 (0.82-1.09) 09/23/17 17:25 - ....Imaging EKG: Report Reviewed, Image Reviewed Assessment/Plan IMP: Occluded RLE bypass graft Non-obstx CAD Chronic HTN REC: No cardiac contraindication to revision of RLE graft/ thrombectomy or PTCA. Continue home BP meds, BP is well controlled. Antiplatelet Rx as per Vascular. Will follow post op.
--- NOTE | 2017-09-26 13:38 | PN ---
Progress Note (short form) - Note Progress Note: Afebrile Thigh wound open to graft, no bleeding or gross pus. Will need graft excision and repair of popliteal and femoral vessels. Patient aware and agrees to proceed.
[2017-09-26] MEDS ORDERED: INSULIN (NOVOLOG) ASPART 100 UNITS/ML 10ML VIAL ONE (18:00)
[2017-09-26] MEDS: ATORVASTATIN CA 20 MG TABLET (FP) PO SCH (22:58)
[2017-09-27] MEDS ORDERED: PT OWN MED DRAWER 7, Y5N ONE ×2 (02:37→22:12)
[2017-09-27] MEDS: AMPICILLIN NA/SULBACTAM NA 1.5 GM in DEXTROSE 5%-WATER - 100 ML IVPB SCH ×4 (03:30→22:17)
[2017-09-27] MEDS: INSULIN SLIDING SCALE (NOVOLOG) 1 VIAL SQ SCH ×3 (06:31→17:16)
--- NOTE | 2017-09-27 09:34 | PN ---
Progress Note, Physician Chief Complaint: no distress or new complaints - Current Medication List Current Medications: Active Medications Acetaminophen (Tylenol -) 325 mg PO Q6H PRN PRN Reason: PAIN Last Admin: 09/26/17 00:10 Dose: 325 mg Acetaminophen (Tylenol -) 650 mg PO Q6H PRN PRN Reason: PAIN Last Admin: 09/26/17 23:05 Dose: 650 mg Amlodipine Besylate (Norvasc -) 10 mg PO DAILY [facility] Last Admin: 09/26/17 09:31 Dose: 10 mg Aspirin (Asa -) 81 mg PO DAILY [facility] Last Admin: 09/26/17 09:31 Dose: 81 mg Atorvastatin Calcium (Lipitor -) 20 mg PO HS [facility] Last Admin: 09/26/17 22:58 Dose: 20 mg Clopidogrel Bisulfate (Plavix -) 75 mg PO DAILY [facility] Last Admin: 09/26/17 09:31 Dose: 75 mg Hydrochlorothiazide (Hctz -) 12.5 mg PO DAILY [facility] Last Admin: 09/26/17 09:31 Dose: 12.5 mg Ampicillin Sodium/Sulbactam (Sodium 1.5 gm/ Dextrose) 100 mls @ 200 mls/hr IVPB Q6H-IV [facility] Last Admin: 09/27/17 03:30 Dose: 200 mls/hr Ibuprofen (Advil -) 400 mg PO Q6H PRN PRN Reason: PAIN Insulin Aspart (Novolog Vial Sliding Scale -) 1 vial SQ TIDAC [facility] PRN Reason: Protocol Last Admin: 09/27/17 06:31 Dose: Not Given Losartan Potassium (Cozaar -) 50 mg PO DAILY [facility] Last Admin: 09/26/17 09:31 Dose: 50 mg Metoprolol Succinate (Toprol Xl -) 25 mg PO DAILY [facility] Last Admin: 09/26/17 09:31 Dose: 25 mg Oxycodone HCl (Roxicodone -) 5 mg PO Q6H PRN PRN Reason: MODERATE PAIN Oxycodone HCl (Roxicodone -) 10 mg PO Q6H PRN PRN Reason: SEVERE PAIN Last Admin: 09/26/17 23:04 Dose: 10 mg - Objective Vital Signs: Vital Signs Temperature 98.1 F 09/26/17 21:00 Pulse Rate 103 H 09/26/17 21:00 Respiratory Rate 20 09/26/17 21:00 Blood Pressure 109/57 09/26/17 21:00 O2 Sat by Pulse Oximetry (%) 98 09/26/17 09:00 Constitutional: Yes: Calm Cardiovascular: Yes: Regular Rate and Rhythm Respiratory: Yes: CTA Bilaterally Gastrointestinal: Yes: Soft Edema: No Neurological: Yes: Alert Labs: CBC, BMP 09/24/17 06:45 09/24/17 06:45 INR, PTT INR 1.08 (0.82-1.09) 09/23/17 17:25 Assessment/Plan IMP: Occluded RLE bypass graft Non-obstx CAD Chronic HTN REC: No cardiac contraindication to revision of RLE graft/ thrombectomy or PTCA. Continue home BP meds, BP is well controlled. Antiplatelet Rx as per Vascular.
[2017-09-27] MEDS ORDERED: HEPARIN NA (PORCINE) 5,000 UNITS/ML 1ML VIAL ONE ×2 (10:23→12:31)
[2017-09-27] MEDS ORDERED: ONDANSETRON 4 MG/2 ML VIAL IVPUSH PRN ×2 (10:43→13:55)
[2017-09-27] MEDS ORDERED: PROPOFOL 20 ML ONE (10:52)
[2017-09-27] MEDS ORDERED: SUCCINYLCHOLINE CHLORIDE 200 MG/10 ML VIAL ONE (10:53)
[2017-09-27] MEDS ORDERED: MIDAZOLAM HCL 2 MG/2 ML SINGLE DOSE VIAL ONE (10:53)
[2017-09-27] MEDS ORDERED: POVIDONE-IODINE OINTMENT 10% - 28.4 GM TUBE ONE (10:55)
[2017-09-27] MEDS ORDERED: DESFLURANE GAS 240 ML BOTTLE IH ONE (11:19)
[2017-09-27] MEDS ORDERED: DEXAMETHASONE SOD PHOSPHATE 4 MG/1 ML VIAL ONE (12:09)
[2017-09-27] MEDS ORDERED: PROTAMINE SULFATE 50 MG/5 ML VIAL ONE (12:38)
[2017-09-27] MEDS ORDERED: POVIDONE-IODINE OINTMENT 10% - 28.4 GM TUBE TP ONE (12:44)
--- NOTE | 2017-09-27 13:17 | OP ---
Operative Note - Note: Operative Date: 09/27/17 Pre-Operative Diagnosis: Infected fem-pop bypass right leg Operation: Excision fem-pop graft, repair popliteal and femoral arteriotomies. Findings: Small amount of turbid fluid in groin. Post-Operative Diagnosis: Same as Pre-op Surgeon: Tate Sorensen Anesthesiologist/PREP PERSON: Ariana Lopez Anesthesia: General Specimens Removed: Bypass graft Estimated Blood Loss (mls): 100 Drains & Tubes with Location: J-P in thigh tract
[2017-09-27] MEDS ORDERED: HYDROmorphone HCL CARPU-JECT 2 MG/1 ML DISP.SYRIN IVPB PRN (13:20)
[2017-09-27] MEDS ORDERED: HYDROmorphone HCL CARPU-JECT 1 MG/1 ML DISP.SYRIN IVPB PRN (13:20)
[2017-09-27] MEDS ORDERED: ACETAMINOPHEN 325 MG TABLET (FP) PO PRN (13:55)
[2017-09-27] MEDS ORDERED: oxyCODONE HCL 5 MG TABLET PO PRN (13:55)
[2017-09-27] MEDS: ASPIRIN 81 MG CHEWABLE TABLETS PO SCH (14:39)
[2017-09-27] MEDS: CLOPIDOGREL BISULFATE 75 MG TABLET (FP) PO SCH (14:40)
[2017-09-27] MEDS: amLODIPine BESYLATE 10 MG TABLET (FP) PO SCH (14:40)
[2017-09-27] MEDS: HYDROCHLOROTHIAZIDE 12.5 MG CAPSULE (FP) PO SCH (14:40)
[2017-09-27] MEDS: LOSARTAN POTASSIUM 50 MG TABLET (FP) PO SCH (14:40)
[2017-09-27] MEDS: METOPROLOL SUCCINATE 25 MG TAB.SR.24H (FP) PO SCH (14:40)
[2017-09-27] MEDS: ACETAMINOPHEN 325 MG TABLET (FP) PO PRN (22:15)
[2017-09-27] MEDS: ATORVASTATIN CA 20 MG TABLET (FP) PO SCH (22:16)
[2017-09-28] MEDS: ACETAMINOPHEN 325 MG TABLET (FP) PO PRN ×3 (00:01→22:10)
[2017-09-28] MEDS ORDERED: PT OWN MED DRAWER 7, Y5N ONE ×3 (03:42→14:54)
[2017-09-28] MEDS: AMPICILLIN NA/SULBACTAM NA 1.5 GM in DEXTROSE 5%-WATER - 100 ML IVPB SCH ×4 (03:48→21:15)
[2017-09-28] MEDS: oxyCODONE HCL 5 MG TABLET PO PRN ×2 (04:21→22:09)
[2017-09-28] MEDS: INSULIN SLIDING SCALE (NOVOLOG) 1 VIAL SQ SCH ×3 (06:30→17:57)
[2017-09-28 08:15] LABS: HEMATOCRIT 31.8 % (35.4-49); HEMOGLOBIN 10.2 GM/dL (11.7-16.9); MCH 26.2 pg (25.7-33.7); MCHC 31.9 g/dl (32.0-35.9); MEAN CELL VOLUME 81.9 fl (80-96); MEAN PLT VOLUME 7.1 fl (7.5-11.1); PLATELET COUNT 291 K/MM3 (134-434); RBC 3.89 M/mm3 (4.00-5.60); RDW 14.6 % (11.9-15.9); WHITE BLOOD COUNT 12.6 K/mm3 (4.0-10.0)
--- NOTE | 2017-09-28 08:36 | PN ---
Progress Note (short form) - Note Progress Note: POD 1 Pain controlled Dressings dry WBC 12 Hgb 10 Stable IV Abx Dressing change tomorrow - place VAC on thigh OOB
--- NOTE | 2017-09-28 08:40 | PN ---
Progress Note (short form) - Note Progress Note: Anesthesia postop note 47 y/o M s/p GA for Removal of PTFE graft POD#1, vss, aaox3, no complaints. No anesthesia complications.
[2017-09-28 08:45] LABS: ANION GAP 4 (8-16); BLOOD UREA NITROGEN 17 mg/dL (7-18); CALCIUM 8.3 mg/dL (8.5-10.1); CHLORIDE 100 mmol/L (98-107); CO2 30 mmol/L (21-32); CREATININE 1.1 mg/dL (0.7-1.3); GLUCOSE,RANDOM 223 mg/dL (74-106); SODIUM 134 mmol/L (136-145)
[2017-09-28] MEDS: ASPIRIN 81 MG CHEWABLE TABLETS PO SCH (09:58)
[2017-09-28] MEDS: amLODIPine BESYLATE 10 MG TABLET (FP) PO SCH (09:58)
[2017-09-28] MEDS: CLOPIDOGREL BISULFATE 75 MG TABLET (FP) PO SCH (09:59)
[2017-09-28] MEDS: METOPROLOL SUCCINATE 25 MG TAB.SR.24H (FP) PO SCH (09:59)
[2017-09-28] MEDS: LOSARTAN POTASSIUM 50 MG TABLET (FP) PO SCH (09:59)
[2017-09-28] MEDS: HYDROCHLOROTHIAZIDE 12.5 MG CAPSULE (FP) PO SCH (09:59)
[2017-09-28] MEDS: POLYETHYLENE GLYCOL 3350 119 GM BTL PO PRN (10:00)
--- NOTE | 2017-09-28 11:54 | PN ---
Progress Note, Physician History of Present Illness: seen and examined today in nad. tolerated surgery well without cardiac complication. no overnight events. no new complaints. - Current Medication List Current Medications: Active Medications Acetaminophen (Tylenol -) 650 mg PO Q4H PRN PRN Reason: FEVER OR PAIN Last Admin: 09/28/17 04:20 Dose: 650 mg Acetaminophen (Tylenol -) 650 mg PO Q6H PRN PRN Reason: PAIN Last Admin: 09/27/17 22:15 Dose: 650 mg Amlodipine Besylate (Norvasc -) 10 mg PO DAILY [facility] Last Admin: 09/28/17 09:58 Dose: 10 mg Aspirin (Asa -) 81 mg PO DAILY [facility] Last Admin: 09/28/17 09:58 Dose: 81 mg Atorvastatin Calcium (Lipitor -) 20 mg PO HS [facility] Last Admin: 09/27/17 22:16 Dose: 20 mg Clopidogrel Bisulfate (Plavix -) 75 mg PO DAILY [facility] Last Admin: 09/28/17 09:59 Dose: 75 mg Hydrochlorothiazide (Hctz -) 12.5 mg PO DAILY [facility] Last Admin: 09/28/17 09:59 Dose: 12.5 mg Hydromorphone HCl (Dilaudid Injection -) 1 mg IVPB Q3H PRN PRN Reason: PAIN LEVEL 1-5 Hydromorphone HCl (Dilaudid Injection -) 2 mg IVPB Q3H PRN PRN Reason: PAIN LEVEL 6-10 Ampicillin Sodium/Sulbactam (Sodium 1.5 gm/ Dextrose) 100 mls @ 200 mls/hr IVPB Q6H-IV [facility] Last Admin: 09/28/17 10:00 Dose: 200 mls/hr Insulin Aspart (Novolog Vial Sliding Scale -) 1 vial SQ TIDAC [facility] PRN Reason: Protocol Last Admin: 09/28/17 06:30 Dose: 4 units Losartan Potassium (Cozaar -) 50 mg PO DAILY [facility] Last Admin: 09/28/17 09:59 Dose: 50 mg Metoprolol Succinate (Toprol Xl -) 25 mg PO DAILY [facility] Last Admin: 09/28/17 09:59 Dose: 25 mg Ondansetron HCl (Zofran Injection) 4 mg IVPUSH Q6H PRN PRN Reason: NAUSEA AND/OR VOMITING Oxycodone HCl (Roxicodone -) 5 mg PO Q6H PRN PRN Reason: MODERATE PAIN Last Admin: 09/28/17 00:03 Dose: 5 mg Oxycodone HCl (Roxicodone -) 10 mg PO Q6H PRN PRN Reason: SEVERE PAIN Last Admin: 09/28/17 04:21 Dose: 10 mg Polyethylene Glycol (Miralax (For Daily Use) -) 17 gm PO DAILY PRN PRN Reason: CONSTIPATION Last Admin: 09/28/17 10:00 Dose: 17 gm - Objective Vital Signs: Vital Signs Temperature 97.5 F L 09/28/17 05:56 Pulse Rate 99 H 09/28/17 05:56 Respiratory Rate 20 09/28/17 05:56 Blood Pressure 143/83 09/28/17 05:56 O2 Sat by Pulse Oximetry (%) 98 09/27/17 21:00 Constitutional: Yes: No Distress, Calm Eyes: Yes: Conjunctiva Clear, EOM Intact HENT: Yes: Atraumatic, Normocephalic Neck: Yes: Supple, Trachea Midline Cardiovascular: Yes: Regular Rate and Rhythm, S1, S2. No: Bradycardia, Tachycardia, Pulse Irregular, Bruit, JVD, Gallop, Murmur, Rub, S3, S4, Varicosities Respiratory: Yes: Regular, CTA Bilaterally. No: Rales, Rhonchi, Wheezes Gastrointestinal: Yes: Normal Bowel Sounds, Soft. No: Distention, Tenderness Edema: No Peripheral Pulses WNL: No Neurological: Yes: Alert, Oriented Psychiatric: Yes: Alert, Oriented Labs: CBC, BMP 09/28/17 07:16 09/28/17 07:16 INR, PTT INR 1.08 (0.82-1.09) 09/23/17 17:25 - ....Imaging Chest X-ray: Report Reviewed, Image Reviewed EKG: Report Reviewed, Image Reviewed Other: Report Reviewed, Image Reviewed Assessment/Plan IMP: Occluded RLE bypass graft Non-obstx CAD Chronic HTN REC: Tolerated procedure well without cardiac complication. HTN adequately controlled, cont toprol, hctz, norvasc Cont ASA and Plavix for non-obs CAD and PAD as per Vascular.
--- NOTE | 2017-09-28 17:50 | OP ---
DATE OF OPERATION: 09/27/2017 SURGEON: Tate Boland M.D. PROCEDURE: Excision of femoral popliteal bypass graft with repair of popliteal and femoral arteriotomies. PREOPERATIVE DIAGNOSIS: Infected femoral-popliteal bypass graft to right leg. POSTOPERATIVE DIAGNOSIS: Infected femoral-popliteal bypass graft to right leg. ANESTHESIA: General. ANESTHESIOLOGIST: Ariana Lopez D.O. OPERATIVE FINDINGS: The prosthetic femoral-popliteal bypass was exposed in the thigh wound with a small amount of purulent material in the subcutaneous tissues. The groin wound was intact, but there was turbid fluid under the skin, and the graft was not incorporated. OPERATIVE PROCEDURE: Following routine patient identification with side and site verification, general anesthesia was induced. The right leg, groin, and abdomen were prepped with Betadine. The incision in the right groin was reopened through the scar. Subcutaneous tissues divided using cautery for hemostasis. Fluid was cultured and drained. The wound was opened up down to the bypass graft, which was carefully mobilized from the surrounding tissues. There was dense scar tissue around the femoral artery, making it difficult to free and dissect it. Decision was made not to try to expose the artery due to the risk of nerve and vessel injury. Therefore the graft was clamped at the distal tend of the incision and divided. A clamp was then placed across the base of the graft near the anastomotic line, and the portion amputated. The stump was oversewn with running suture of 5-0 Prolene, leaving a small amount of graft on the artery. This wound was then irrigated with bacitracin solution. The remainder of the graft was ligated and then removed through the thigh incision. A suture tied to the end of the graft was used to pull a drain, a Edgar-Kimball drain, into the tract. The connection between the tract and the groin was then closed with a suture of 2-0 Vicryl. The wound was again irrigated with bacitracin solution and a gauze soaked in bacitracin was left in the wound. The thigh wound was then explored, and the graft clamped near the anastomosis, and the longer portion excised and sent to pathology. The popliteal artery was mobilized carefully and encircled proximally with a vessel loop. It was not possible to get distal control due to dense scar tissue in this area. Therefore the end of the graft was opened, and a thrombectomy performed. There was return of arterial back bleeding from the distal leg, and then a number 5 Chun catheter was placed into the vessel and inflated to control bleeding. The remainder of the graft was then excised by cutting the Prolene suture holding it in place. The resulting arteriotomy was closed with a running suture of 5-0 Prolene. Before final closure, the proximal clamp was opened; there was no inflow from above. The arteriotomy was then closed and clamps removed. During the procedure, the patient had been given intravenous heparin. The wound was irrigated with bacitracin solution. The tract was irrigated through the drain with bacitracin solution. Both wounds were then closed with sutures of 2-0 Vicryl in the subcutaneous tissues. The skin and subcutaneous area were left open. Iodoform gauze was used to pack the wounds. The drain was sutured to the subcutaneous tissues with Vicryl and connected to a bulb canister. Remainder of the dressing was placed using Kerlix, Coban, and ABD pads. Patient was then extubated, taken to the recovery room in stable condition. TATE BOLAND M.D. [id number]
[2017-09-28] MEDS: ATORVASTATIN CA 20 MG TABLET (FP) PO SCH (22:14)
[2017-09-29] MEDS: AMPICILLIN NA/SULBACTAM NA 1.5 GM in DEXTROSE 5%-WATER - 100 ML IVPB SCH ×4 (03:48→21:29)
[2017-09-29] MEDS: INSULIN SLIDING SCALE (NOVOLOG) 1 VIAL SQ SCH ×3 (06:26→16:44)
[2017-09-29 08:32] LABS: ANION GAP 9 (8-16); BLOOD UREA NITROGEN 18 mg/dL (7-18); CALCIUM 8.7 mg/dL (8.5-10.1); CHLORIDE 99 mmol/L (98-107); CO2 27 mmol/L (21-32); CREATININE 1.3 mg/dL (0.7-1.3); GLUCOSE,RANDOM 249 mg/dL (74-106); POTASSIUM 3.9 mmol/L (3.5-5.1); SODIUM 135 mmol/L (136-145)
[2017-09-29 08:36] LABS: HEMATOCRIT 33.2 % (35.4-49); HEMOGLOBIN 10.5 GM/dL (11.7-16.9); MCH 26.3 pg (25.7-33.7); MCHC 31.7 g/dl (32.0-35.9); MEAN CELL VOLUME 82.9 fl (80-96); MEAN PLT VOLUME 7.4 fl (7.5-11.1); PLATELET COUNT 332 K/MM3 (134-434); RDW 14.6 % (11.9-15.9); WHITE BLOOD COUNT 12.9 K/mm3 (4.0-10.0)
--- NOTE | 2017-09-29 08:51 | PN ---
Progress Note (short form) - Note Progress Note: POD #2 Alert. No complaints. AVSS. Afebrile. BMP 09/29/17 07:30 Gen: nad Right groin: packing removed, wound irrigated. re-packed with iodoform/4x4 Right thigh: packing removed. JACOB dc'd on rounds. Wound irrigated. Problem List - Problems (1) Post op infection Assessment/Plan: POD #2 s/p Excision fem-pop graft, repair popliteal and femoral arteriotomies. Will place wound VAC today. Change TH/Sat/Mon VNS ordered Tight glycemic control OOB to chair dc planning Code(s): T81.4XXA - INFECTION FOLLOWING A PROCEDURE, INITIAL ENCOUNTER Qualifiers: Encounter type: initial encounter Qualified Code(s): T81.4XXA - Infection following a procedure, initial encounter (2) Obesity Code(s): E66.9 - OBESITY, UNSPECIFIED (3) PAD (peripheral artery disease) Code(s): I73.9 - PERIPHERAL VASCULAR DISEASE, UNSPECIFIED
--- NOTE | 2017-09-29 08:53 | PATH ---
Surgical Pathology Report Patient Name: CJ TY Med. Rec. #: [id number] /Age/Gender: 1970 (Age: 47) / M Account: [id number] Location: [address] [place] [address] Taken: 09/27/2017 Received: 09/28/2017 Reported: 09/29/2017 Physicians: Tate Sorensen M.D. Specimen(s) Received GRAFT RIGHT LEG Clinical History Infected graft right leg Final Diagnosis TENT FINISHER, RIGHT LEG, REMOVAL: VASCULAR GRAFT (GROSS ONLY). Electronically Signed Jordin Washington M.D. Gross Description Received fresh labeled "graft from right leg," is a 32 cm in length christianson portion of tubing, consistent with a graft. The graft displays attached suture material. No soft tissue is present. No sections are submitted, gross only. /09/28/2017 saudi09/28/2017
--- NOTE | 2017-09-29 08:57 | PROC ---
Procedure Note Procedure: Wound VAC right thigh (medial) Area cleansed, wound irrigated. Wound VAC placed with black sponge so it sits just inside of wound border to encourage contracture. Pressure set to 125 mmHg Sponged collapsed as expected. Patient tolerated procedure well. Dressing change Thada ordered. VNS ordered for home care
[2017-09-29] MEDS: METOPROLOL SUCCINATE 25 MG TAB.SR.24H (FP) PO SCH (09:40)
[2017-09-29] MEDS: HYDROCHLOROTHIAZIDE 12.5 MG CAPSULE (FP) PO SCH (09:40)
[2017-09-29] MEDS: amLODIPine BESYLATE 10 MG TABLET (FP) PO SCH (09:40)
[2017-09-29] MEDS: LOSARTAN POTASSIUM 50 MG TABLET (FP) PO SCH (09:40)
[2017-09-29] MEDS: ASPIRIN 81 MG CHEWABLE TABLETS PO SCH (09:40)
[2017-09-29] MEDS: CLOPIDOGREL BISULFATE 75 MG TABLET (FP) PO SCH (09:40)
[2017-09-29] MEDS: POLYETHYLENE GLYCOL 3350 119 GM BTL PO PRN (09:42)
[2017-09-29] MEDS ORDERED: INSULIN (NOVOLOG) ASPART 100 UNITS/ML 10ML VIAL ONE (11:59)
[2017-09-29] MEDS: ATORVASTATIN CA 20 MG TABLET (FP) PO SCH (22:30)
[2017-09-30] MEDS: AMPICILLIN NA/SULBACTAM NA 1.5 GM in DEXTROSE 5%-WATER - 100 ML IVPB SCH ×3 (02:48→21:46)
[2017-09-30] MEDS: oxyCODONE HCL 5 MG TABLET PO PRN (02:48)
[2017-09-30] MEDS: ACETAMINOPHEN 325 MG TABLET (FP) PO PRN (02:49)
[2017-09-30] MEDS: INSULIN SLIDING SCALE (NOVOLOG) 1 VIAL SQ SCH ×3 (06:05→17:11)
--- NOTE | 2017-09-30 09:05 | PN ---
Progress Note (short form) - Note Progress Note: Resting comfortably. VAC placed yesterday and tolerating without complaint. Afebrile. AVSS Gen: alert. nad RLE: groin dressing changed by RN with iodoform packing. VAC spong remains collapsed on suction (no airleak). Minimal drainage in cannister. Problem List - Problems (1) Post op infection Assessment/Plan: VAC dressing scheduled for change tomorrow (ordered) Cont daily wound packing to right groin VNS ordered dc planning Code(s): T81.4XXA - INFECTION FOLLOWING A PROCEDURE, INITIAL ENCOUNTER QualifierTitle: Encounter type: initial encounter Qualified Code(s): T81.4XXA - Infection following a procedure, initial encounter (2) Obesity Code(s): E66.9 - OBESITY, UNSPECIFIED (3) PAD (peripheral artery disease) Code(s): I73.9 - PERIPHERAL VASCULAR DISEASE, UNSPECIFIED
[2017-09-30] MEDS: METOPROLOL SUCCINATE 25 MG TAB.SR.24H (FP) PO SCH (09:58)
[2017-09-30] MEDS: amLODIPine BESYLATE 10 MG TABLET (FP) PO SCH (09:58)
[2017-09-30] MEDS: ASPIRIN 81 MG CHEWABLE TABLETS PO SCH (09:58)
[2017-09-30] MEDS: LOSARTAN POTASSIUM 50 MG TABLET (FP) PO SCH (09:58)
[2017-09-30] MEDS: HYDROCHLOROTHIAZIDE 12.5 MG CAPSULE (FP) PO SCH (09:58)
[2017-09-30] MEDS: CLOPIDOGREL BISULFATE 75 MG TABLET (FP) PO SCH (09:58)
[2017-09-30] MEDS ORDERED: INSULIN (NOVOLOG) ASPART 100 UNITS/ML 10ML VIAL ONE (11:36)
[2017-09-30] MEDS ORDERED: BISACODYL 10 MG SUPP.RECT PR PRN (13:21)
[2017-09-30] MEDS: ATORVASTATIN CA 20 MG TABLET (FP) PO SCH (21:46)
[2017-10-01] MEDS: ACETAMINOPHEN 325 MG TABLET (FP) PO PRN ×2 (01:34→08:54)
[2017-10-01] MEDS: AMPICILLIN NA/SULBACTAM NA 1.5 GM in DEXTROSE 5%-WATER - 100 ML IVPB SCH ×3 (02:40→13:00)
[2017-10-01] MEDS: INSULIN SLIDING SCALE (NOVOLOG) 1 VIAL SQ SCH ×3 (06:06→18:25)
[2017-10-01] MEDS ORDERED: PT OWN MED DRAWER 7, Y5N ONE (08:52)
[2017-10-01] MEDS: ASPIRIN 81 MG CHEWABLE TABLETS PO SCH (09:02)
[2017-10-01] MEDS: HYDROCHLOROTHIAZIDE 12.5 MG CAPSULE (FP) PO SCH (09:02)
[2017-10-01] MEDS: CLOPIDOGREL BISULFATE 75 MG TABLET (FP) PO SCH (09:03)
[2017-10-01] MEDS: METOPROLOL SUCCINATE 25 MG TAB.SR.24H (FP) PO SCH (09:03)
[2017-10-01] MEDS ORDERED: oxyCODONE HCL 5 MG TABLET PO PRN ×2 (09:22→09:23)
--- NOTE | 2017-10-01 09:28 | PN ---
Progress Note (short form) - Note Progress Note: POD #3 Alert. Per RN, pt c/o right thigh pain last night. Only had tylenol for pain. No other complaints. Afeb. VSS Gen: nad RLE: groin wound clean. packing changed on rounds. thigh --> wound clean. tissue pink <Anupam Unger P - Last Filed: 10/01/17 09:24> - Note Progress Note: Groin wound with small amount of slough, otherwise doing well. OK for change to PO Augmentin tomorrow and D/C with VNS for wound care. <Tate Sorensen - Last Filed: 10/01/17 17:30> Problem List - Problems (1) Post op infection Assessment/Plan: Groin dressing changed by RN. I changed VAC dressing. VAC papers filled out. Possible dc today if VAC approved and obtain machine vs. tomorrow Cont iv abx Pain management --> oxycodone 5 mg q 6hr pain 1-5 oxycodone 10mg q 6hr pain 6-10 oob to chair may ambulate Code(s): T81.4XXA - INFECTION FOLLOWING A PROCEDURE, INITIAL ENCOUNTER QualifierTitle: Encounter type: initial encounter Qualified Code(s): T81.4XXA - Infection following a procedure, initial encounter (2) Obesity Code(s): E66.9 - OBESITY, UNSPECIFIED (3) PAD (peripheral artery disease) Code(s): I73.9 - PERIPHERAL VASCULAR DISEASE, UNSPECIFIED <Anupam Unger P - Last Filed: 10/01/17 09:24>
[2017-10-01] MEDS ORDERED: HYDROmorphone HCL CARPU-JECT 2 MG/1 ML DISP.SYRIN IVPB ONE (09:30)
[2017-10-01] MEDS: amLODIPine BESYLATE 10 MG TABLET (FP) PO SCH (10:15)
[2017-10-01] MEDS: LOSARTAN POTASSIUM 50 MG TABLET (FP) PO SCH (10:15)
[2017-10-01] MEDS ORDERED: AMPICILLIN NA/SULBACTAM NA 1.5 GM in SODIUM CHLORIDE 100 ML IVPB SCH (17:21)
[2017-10-01] MEDS: AMPICILLIN NA/SULBACTAM NA 1.5 GM in SODIUM CHLORIDE 100 ML IVPB SCH (21:44)
[2017-10-01] MEDS: ATORVASTATIN CA 20 MG TABLET (FP) PO SCH (22:16)
[2017-10-02] MEDS: AMPICILLIN NA/SULBACTAM NA 1.5 GM in SODIUM CHLORIDE 100 ML IVPB SCH (03:18)
[2017-10-02] MEDS: INSULIN SLIDING SCALE (NOVOLOG) 1 VIAL SQ SCH (06:21)
[2017-10-02] MEDS ORDERED: INSULIN (NOVOLOG) ASPART 100 UNITS/ML 10ML VIAL ONE (06:51)
[2017-10-02] MEDS ORDERED: INSULIN DETEMIR 100 UNITS/ML MDV SQ ONE (06:51)
[2017-10-02 07:34] VITALS: BP 127/72; PULSE 89; TEMP 98.2
[2017-10-02] MEDS ORDERED: SILVER NITRATE 75% APPLIC STCK 1 PKT EACH TP ONE (08:22)
--- NOTE | 2017-10-02 08:41 | PN ---
Progress Note (short form) - Note Progress Note: No c/o VSS Thigh wound granulating. Small amount bloody drainage in VAC. Groin wound with small amount of slough, otherwise doing well. OK for D/C with VNS for wound care. PO Augmentin
[2017-10-02] MEDS ORDERED: PT OWN MED DRAWER 7, Y5N ONE (09:13)
[2017-10-02] MEDS: HYDROCHLOROTHIAZIDE 12.5 MG CAPSULE (FP) PO SCH (09:22)
[2017-10-02] MEDS: amLODIPine BESYLATE 10 MG TABLET (FP) PO SCH (09:22)
[2017-10-02] MEDS: LOSARTAN POTASSIUM 50 MG TABLET (FP) PO SCH (09:22)
[2017-10-02] MEDS: ASPIRIN 81 MG CHEWABLE TABLETS PO SCH (09:22)
[2017-10-02] MEDS: METOPROLOL SUCCINATE 25 MG TAB.SR.24H (FP) PO SCH (09:22)
[2017-10-02] MEDS: CLOPIDOGREL BISULFATE 75 MG TABLET (FP) PO SCH (09:22)
== END 2017-10-02 12:13 | disposition home health service (06) | DRG 858 ==
LOC: JER 09:17 → JERBED 12:55 → J5S 21:37
PROVIDERS: ADMIT Surgery; ATTEND Surgery
PROC: 0YQ90ZZ Repair Right Lower Extremity, Open Approach (ICD-10-PCS; 2017-09-27)
PROC: 2W1LX6Z Compression of Right Lower Extremity using Pressure Dressing (ICD-10-PCS; 2017-09-27)
PROC: 3E033GC Introduction of Other Therapeutic Substance into Peripheral Vein, Percutaneous Approach (ICD-10-PCS; 2017-09-27)
PROC: 0YP90JZ Removal of Synthetic Substitute from Right Lower Extremity, Open Approach (ICD-10-PCS; principal; 2017-09-27 10:42)
DX: T81.4XXA Infection following a procedure, initial encounter (principal); Z79.4 Long term (current) use of insulin; E78.5 Hyperlipidemia, unspecified; E11.40 Type 2 diabetes mellitus with diabetic neuropathy, unspecified; Y83.8 Other surgical procedures as the cause of abnormal reaction of the patient, or of later complication, without mention of misadventure at the time of the procedure; F12.10 Cannabis abuse, uncomplicated; E66.9 Obesity, unspecified; I73.9 Peripheral vascular disease, unspecified; I25.10 Atherosclerotic heart disease of native coronary artery without angina pectoris; I10 Essential (primary) hypertension; Z68.37 Body mass index [BMI] 37.0-37.9, adult
CPT/HCPCS: 36415; 80048; 80053; 82962; 85025; 85027; 85610; 85730; 86850; 86900; 86901; 87040; 87070; 87076; 87186; 87205; 88300-TC; 93005; 93010; 93971-TC; 94760; 99285-25; J1644

== ENCOUNTER 2018-03-01 16:39 | Inpatient (IN) | payer OTHER ==
--- NOTE | 2018-03-01 16:43 | PDOC ---
Rapid Medical Evaluation Time Seen by Provider: 03/01/18 16:41 Medical Evaluation: Allergies Allergy/AdvReac Type Severity Reaction Status Date / Time No Known Allergies Allergy Verified 09/23/17 09:24 03/01/18 16:41 I have performed a brief in-person evaluation of this patient. The patient presents with a chief complaint of: bilateral leg pain, worse on right. STates told by pmd that the stent in the right leg is clotted. Denies swelling or redness Pertinent physical exam findings: nad unlabored breathing no pedal edema I have ordered the following: labs ordered The patient will proceed to the ED for further evaluation
[2018-03-01 17:20] LABS: BASO % 0.9 % (0-2.0); EOS % 4.4 % (0-4.5); HEMATOCRIT 41.6 % (35.4-49); HEMOGLOBIN 13.4 GM/dL (11.7-16.9); LYMPH % 31.6 % (8-40); MCH 26.4 pg (25.7-33.7); MCHC 32.2 g/dl (32.0-35.9); MEAN CELL VOLUME 81.8 fl (80-96); MEAN PLT VOLUME 8.2 fl (7.5-11.1); MONO % 6.3 % (3.8-10.2); NEUT % 56.8 % (42.8-82.8); PLATELET COUNT 224 K/MM3 (134-434); RBC 5.09 M/mm3 (4.00-5.60); RDW 16.7 % (11.9-15.9)
[2018-03-01 17:41] LABS: INR 1.04 (0.82-1.09); PROTHROMBIN TIME (PATIENT) 11.7 SEC (9.7-13.0)
[2018-03-01 17:43] LABS: ACTIVATED PTT 29.2 SECONDS (26.9-34.4)
[2018-03-01 17:49] LABS: ALBUMIN 3.2 g/dl (3.4-5.0); ANION GAP 7 (8-16); BILIRUBIN,TOTAL 0.5 mg/dL (0.2-1.0); BLOOD UREA NITROGEN 17 mg/dL (7-18); CALCIUM 8.3 mg/dL (8.5-10.1); CHLORIDE 104 mmol/L (98-107); CO2 26 mmol/L (21-32); CREATININE 1.5 mg/dL (0.7-1.3); POTASSIUM 3.8 mmol/L (3.5-5.1); SODIUM 137 mmol/L (136-145); TOT PROT 6.4 g/dl (6.4-8.2)
[2018-03-01 17:53] LABS: ALK PHOS 195 U/L (45-117); SGOT/AST 14 U/L (15-37); SGPT/ALT 26 U/L (12-78)
[2018-03-01 17:58] LABS: GLUCOSE,RANDOM 314 mg/dL (74-106)
--- NOTE | 2018-03-01 19:27 | PDOC ---
History of Present Illness - General Chief Complaint: Pain Stated Complaint: Rt leg stent clogged, leg pain Time Seen by Provider: 03/01/18 16:41 - History of Present Illness Initial Comments: 03/01/18 19:27 Mr. Gonzalez is a 47 yo male w/ pmh of IDDM (insulin pump), HTN, HLD, neuropathy, PAD (s/p left fem art stent and newer right sided stent) who presents for evaluation of right sided calf pain. Mr. Gonzalez had previously been evaluated in clinic last week and was told to present to ER if any increase of pain. He presents today as his right calf has become increasingly more painful with ambulation. The patient denies chest pain, shortness of breath, headache and dizziness. Denies fever, chills, nausea, vomit, diarrhea and constipation. Denies dysuria, frequency, urgency and hematuria. Allergies: NKDA PCP: Nikolay Cooper Past History - Past Medical History Allergies/Adverse Reactions: Allergies Allergy/AdvReac Type Severity Reaction Status Date / Time No Known Allergies Allergy Verified 03/01/18 16:44 Home Medications: Ambulatory Orders Aspirin [ASA -] 81 mg PO DAILY 04/04/15 Insulin Pump Syringe, 1.8 ml [Thinset] 1 each MC DAILY 10/21/16 Amlodipine Besylate 10 mg PO DAILY 03/02/17 Atorvastatin Ca [Lipitor] 20 mg NR DAILY 03/02/17 Losartan/Hydrochlorothiazide [Losartan-Hctz 50-12.5 mg Tab] 1 each PO DAILY 09/06 Clopidogrel Bisulfate [Plavix -] 75 mg PO DAILY 09/02/17 Ibuprofen [Advil -] 400 mg PO PRN PRN 09/02/17 Metoprolol Succinate [Toprol XL -] 25 mg PO DAILY 09/02/17 Amoxicillin/Potassium Clav [Augmentin 875-125 Tablet] 1 each PO BID #14 tablet 10/01/17 Oxycodone HCl/Acetaminophen [Percocet 5-325 mg Tablet] 1 tab PO Q6H PRN #20 tablet MDD 4 10/02/17 Anemia: No Asthma: No Cancer: No Cardiac Disorders: No CVA: No COPD: No CHF: No DVT: No (rt leg, has stent) Dementia: No Diabetes: Yes (IDDM, INSULIN PUMP) GI Disorders: No Disorders: No HTN: Yes Hypercholesterolemia: Yes Liver Disease: No Seizures: No Thyroid Disease: No - Surgical History Lung Surgery: Yes (lung tumor removed at age 4) Orthopedic Surgery: Yes (LFT carpal tunnel syndrome,LFT rotator muscles) - Immunization History Immunization Up to Date: Yes - Suicide/Smoking/Psychosocial Hx Smoking History: Never smoked Have you smoked in the past 12 months: Yes Number of Cigarettes Smoked Daily: 0 If you are a former smoker, when did you quit?: 10/2014 Information on smoking cessation initiated: No 'Breaking Loose' booklet given: 02/01/14 Hx Alcohol Use: No Drug/Substance Use Hx: No Substance Use Type: None Hx Substance Use Treatment: No Review of Systems - Review of Systems Comments:: 03/01/18 19:46 GENERAL/CONSTITUTIONAL: No fever or chills. No weakness. HEAD, EYES, EARS, NOSE AND THROAT: No change in vision. No ear pain or discharge. No sore throat. CARDIOVASCULAR: No chest pain or shortness of breath RESPIRATORY: No cough, wheezing, or hemoptysis. GASTROINTESTINAL: No nausea, vomiting, diarrhea or constipation. GENITOURINARY: No dysuria, frequency, or change in urination. MUSCULOSKELETAL: +Right outside calf pain. No neck or back pain. SKIN: No rash NEUROLOGIC: No headache, vertigo, loss of consciousness, or change in strength/ sensation. ENDOCRINE: No increased thirst. No abnormal weight change HEMATOLOGIC/LYMPHATIC: No anemia, easy bleeding, or history of blood clots. ALLERGIC/IMMUNOLOGIC: No hives or skin allergy. *Physical Exam - Vital Signs Last Vital Signs Temp Pulse Resp BP Pulse Ox 99.3 F 113 H 19 137/99 99 03/01/18 16:41 03/01/18 16:41 03/01/18 16:41 03/01/18 16:41 03/01/18 16:41 - Physical Exam Comments: 03/01/18 19:46 GENERAL: Awake, alert, and fully oriented, in no acute distress HEAD: No signs of trauma, normocephalic, atraumatic EYES: PERRLA, EOMI, sclera anicteric, conjunctiva clear ENT: Auricles normal inspection, hearing grossly normal, nares patent, oropharynx clear without exudates. Moist mucosa NECK: Normal ROM, supple, no lymphadenopathy, JVD, or masses LUNGS: No distress, speaks full sentences, clear to auscultation bilaterally HEART: Regular rate and rhythm, normal S1 and S2, no murmurs, rubs or gallops, peripheral pulses normal and equal bilaterally. ABDOMEN: Soft, nontender, normoactive bowel sounds. No guarding, no rebound. No masses EXTREMITIES: +Well healing incision scars to right femoral area and right inside upper leg. Otherwise normal inspection, Normal range of motion, no edema. No clubbing or cyanosis. NEUROLOGICAL: Cranial nerves II through XII grossly intact. Normal speech, normal gait, no focal sensorimotor deficits SKIN: Warm, Dry, normal turgor, no rashes or lesions noted. ED Treatment Course - LABORATORY CBC & Chemistry Diagram: 03/01/18 17:12 03/01/18 17:12 - ADDITIONAL ORDERS Additional order review: Laboratory Results 03/01/18 03/01/18 17:12 17:12 PT with INR 11.70 INR 1.04 PTT (Actin FS) 29.2 Sodium 137 Potassium 3.8 Chloride 104 Carbon Dioxide 26 Anion Gap 7 L BUN 17 Creatinine 1.5 H Creat Clearance w eGFR 49.74 Random Glucose 314 H* D Calcium 8.3 L Total Bilirubin 0.5 D AST 14 L D ALT 26 Alkaline Phosphatase 195 H D Total Protein 6.4 Albumin 3.2 L 03/01/18 17:12 RBC 5.09 D MCV 81.8 MCHC 32.2 RDW 16.7 H MPV 8.2 D Neutrophils % 56.8 Lymphocytes % 31.6 D Monocytes % 6.3 Eosinophils % 4.4 D Basophils % 0.9 Medical Decision Making - Medical Decision Making 03/02/18 00:44 Mr. Gonzalez is a 47 yo male w/ pmh as described who presents for evaluation of right leg pain. US ordered for evaluation of vascular status; revealed no blood flow in mid and distal portions of right superficial femoral artery compatible with occlusion. PCP paged for admission for vascular evaluation. 03/02/18 01:53 Patient admitted for further evaluation. *DC/Admit/Observation/Transfer Diagnosis at time of Disposition: Arterial occlusion - Discharge Dispostion Decision to Admit order: Yes - Referrals Referrals: Tate Sorensen MD [Primary Care Provider] - - Patient Instructions - Post Discharge Activity
--- NOTE | 2018-03-01 19:38 | PDOC ---
Attending Attestation - HPI HPI: 03/01/18 20:09 The patient is a 47 year old male with a history of IDDM (insulin pump), HTN, HLD, neuropathy, PAD (s/p left femoral artery stent x 1) who presents for evaluation right leg pain. The patient reports that his pain is concentrated in the posterior aspect of his right leg and has been worsening when ambulating. He reports that he saw Dr. Sorensen last week who told him to present to the emergency department if his leg pain was worsening. He denies chest pain, shortness of breath, and dizziness He denies fever, chills, nausea. - Physicial Exam PE: 03/01/18 20:11 GENERAL: Well-appearing, well-nourished. No apparent distress. HEENT: Normocephalic, atraumatic. PERRL, EOM intact. CARDIOVASCULAR: Normal S1, S2. Regular rate and rhythm. PULMONARY: Clear to auscultation bilaterally. ABDOMEN: Soft, non-distended, non-tender. EXTREMITIES: (+) Well healing incision scars to right femur and right medial thigh. Normal ROM in all four extremities. No gross deformities. SKIN: Warm, dry. No rash NEUROLOGICAL: No focal neurological deficits. - Medical Decision Making 03/01/18 20:25 Documentation prepared by Manuel Pablo, acting as health care / medical job titles for Danyel Antonio DO. <Manuel Pablo - Last Filed: 03/01/18 20:24> - Resident Resident Name: Rick Dorsey - ED Attending Attestation I have performed the following: I have examined & evaluated the patient, The case was reviewed & discussed with the resident, I agree w/resident's findings & plan, Exceptions are as noted - Medical Decision Making 03/02/18 00:44 Pt will be admitted for treatment <Danyel Antonio - Last Filed: 03/02/18 00:44>
[2018-03-02] MEDS ORDERED: morphine SULFATE 4 MG/ML VIAL IVPUSH PRN ×2 (03:52→11:33)
[2018-03-02 04:27] VITALS: BMI 37.7
[2018-03-02 08:35] LABS: BASO % 0.3 % (0-2.0); EOS % 5.3 % (0-4.5); HEMATOCRIT 40.1 % (35.4-49); HEMOGLOBIN 13.2 GM/dL (11.7-16.9); LYMPH % 43.3 % (8-40); MCH 26.7 pg (25.7-33.7); MCHC 32.9 g/dl (32.0-35.9); MEAN CELL VOLUME 81.1 fl (80-96); MEAN PLT VOLUME 8.4 fl (7.5-11.1); MONO % 5.9 % (3.8-10.2); NEUT % 45.2 % (42.8-82.8); PLATELET COUNT 199 K/MM3 (134-434); RBC 4.95 M/mm3 (4.00-5.60); RDW 16.7 % (11.9-15.9); WHITE BLOOD COUNT 8.3 K/mm3 (4.0-10.0)
[2018-03-02 09:03] LABS: CHLORIDE 103 mmol/L (98-107); POTASSIUM 3.6 mmol/L (3.5-5.1); SODIUM 139 mmol/L (136-145)
--- NOTE | 2018-03-02 09:03 | CONSULT ---
Consult - History of Present Illness History of Present Illness: 47 year old male, DM, PAD s/p right leg bypass which required removal due to infection earlier this year. His right leg has become more painful over the past few weeks and repeat bypass will be needed. - Past Medical History Cardio/Vascular: Yes: HTN, Hyperlipdemia, Other (PAD) Gastrointestinal: Yes: Other (Obesity) Renal/: Yes: Renal Inusuff. 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 History of Recent Travel: Yes ([place] 2 weeks ago) Home Medications - Allergies Allergies/Adverse Reactions: Allergies Allergy/AdvReac Type Severity Reaction Status Date / Time No Known Allergies Allergy Verified 03/01/18 16:44 - Home Medications Home Medications: Ambulatory Orders Aspirin [ASA -] 81 mg PO DAILY 04/04/15 Insulin Pump Syringe, 1.8 ml [Thinset] 1 each MC DAILY 10/21/16 Amlodipine Besylate 10 mg PO DAILY 03/02/17 Atorvastatin Ca [Lipitor] 20 mg NR DAILY 03/02/17 Losartan/Hydrochlorothiazide [Losartan-Hctz 50-12.5 mg Tab] 1 each PO DAILY 09/06 Clopidogrel Bisulfate [Plavix -] 75 mg PO DAILY 09/02/17 Ibuprofen [Advil -] 400 mg PO PRN PRN 09/02/17 Metoprolol Succinate [Toprol XL -] 25 mg PO DAILY 09/02/17 Amoxicillin/Potassium Clav [Augmentin 875-125 Tablet] 1 each PO BID #14 tablet 10/01/17 Oxycodone HCl/Acetaminophen [Percocet 5-325 mg Tablet] 1 tab PO Q6H PRN #20 tablet MDD 4 10/02/17 Family Disease History - Family Disease History Family Disease History: Diabetes: Father, Heart Disease: Mother ( MA) Physical Exam Vital Signs: Vital Signs Temperature 98.4 F 03/02/18 03:50 Pulse Rate 89 03/02/18 03:50 Respiratory Rate 18 03/02/18 03:50 Blood Pressure 136/51 03/02/18 03:50 O2 Sat by Pulse Oximetry (%) 99 03/02/18 03:50 Constitutional: Yes: No Distress Extremities: Yes: Other (No color change, feet warm) Edema: Yes Edema: LLE: 1+, RLE: 1+ Peripheral Pulses WNL: No (Absent pedal pulses) Labs: CBC, BMP 03/02/18 07:45 Problem List - Problems (1) Rest pain of right lower extremity concurrent with and due to atherosclerosis of bypass graft Assessment/Plan: CTA ordered Cardiology evaluation for vascular surgery preop. Code(s): I70.321 - ATHSCL UNSP TYPE BYPASS OF THE EXTRM W REST PAIN, RIGHT LEG
[2018-03-02 09:31] LABS: ALBUMIN 3.2 g/dl (3.4-5.0); ALK PHOS 198 U/L (45-117); ANION GAP 8 (8-16); BILIRUBIN,TOTAL 0.7 mg/dL (0.2-1.0); BLOOD UREA NITROGEN 13 mg/dL (7-18); CALCIUM 8.4 mg/dL (8.5-10.1); CO2 28 mmol/L (21-32); CREATININE 1.1 mg/dL (0.7-1.3); GLUCOSE,RANDOM 155 mg/dL (74-106); SGOT/AST 14 U/L (15-37); SGPT/ALT 27 U/L (12-78); TOT PROT 6.5 g/dl (6.4-8.2)
--- NOTE | 2018-03-02 09:34 | CON.CARD ---
Cardiology Consult (text) - Consultation Consultation Note: Cardiology Consult Dictated IMP: 1. Significant PAD, h/o bypass now preop for repeat RLE bypass 2. DM 3. Former smoker 4. HTN 5. CAD REC: 1. Echo for EF assessment and for surveilance of mildly dilated ascending aorta 2. To continue Toprol for BP control (prior CAD, and for his dilated aorta) 3. Continuation of Plavix preop as per Vascular surgery There are no absolute cardiac contraindications to to Vascular surgery: no unstable anginal sx; no aortic stenosis. He is in NSR and is euvolemic. He would be considered at moderate risk for perioperative cardiac events due to his hx of smoking, DM, HTN, CAD. Will check post op ECG and cardiac enzymes. Thank you.
[2018-03-02] MEDS: metoPROLOL SUCCINATE 25 MG TAB.SR.24H (FP) PO SCH (10:23)
[2018-03-02 10:52] LABS: ANISOCYTOSIS 1+; MACROCYTOSIS 1+; OVALOCYTE 1+; PLATELET ESTIMATE NORMAL
--- NOTE | 2018-03-02 12:06 | CONS ---
CARDIOLOGY CONSULTATION DATE OF CONSULTATION: 03/02/2018 Requested by Tate Sorensen MD, for perioperative cardiac evaluation prior to right lower extremity bypass. The patient is a 47-year-old male with past medical history of peripheral arterial disease, status post right lower extremity graft/bypass earlier this year requiring removal due to infection, who now presents to with worsening right lower extremity claudication symptoms and pain. He was found to have an occluded SFA and requires repeat right lower extremity bypass. The patient describes significant claudication symptoms with nocturnal pain, cramping, and pain with minimal exertion. He also describes intermittent coldness of his right lower extremity. He denies chest pain, denies increase in his chronic mild dyspnea on exertion. No PND, orthopnea or syncope. His past medical history is as above, but is also significant for hypertension, mildly dilated ascending aorta of 4 cm, diabetes, hyperlipidemia, and non-obstructive coronary artery disease on catheterization in 2014. That catheterization revealed a 40%, nonobstructive, large LAD; 80%, small obtuse marginal lesion, 80%, small right coronary artery lesion for which medical therapy was recommended. In February 2017, he underwent a repeat ischemic evaluation with a nuclear stress test showing no ischemia and an ejection fraction of 58%. The patient states he has no change in symptoms since that time. ALLERGIES: None. HOME MEDICATIONS: Percocet 5 per 325 q. 6 p.r.n., Toprol XL of 25 mg p.o. daily, losartan/hydrochlorothiazide 50 per 12.5 daily, insulin, Advil of 400 mg p.r.n., Plavix 75 mg p.o. daily, Lipitor 20 mg nightly, aspirin 81 mg daily, amlodipine 10 mg daily. FAMILY HISTORY: Significant for coronary disease. He reports his father had an IA at an age younger than 50. SOCIAL HISTORY: He is a former smoker, 1 pack per day from the age of 14 until about 35. Occasional marijuana use. No alcohol. No illegal drugs. PHYSICAL EXAMINATION: General: Comfortable. Alert. Oriented. No distress. Vital signs: T-maximum 99.3, pulse 89, regular, blood pressure , oxygen saturation 99 on room air. He weighs 294 pounds. HEENT: He is anicteric. Neck: No carotid bruits. Heart: S1, 2 regular. No murmurs. Chest: Clear, but with slightly decreased breath sounds bilaterally consistent with probable COPD. Abdomen: Obese. Soft. Nontender. Extremities: No edema. There is no palpable dorsalis pedis pulse in the right lower extremity. His 12-lead EKG shows normal sinus rhythm, at 84 beats per minute, slight left axis, no pathological Q waves, no significant ST changes, and the QTc is normal at 451. Arterial duplex of the lower extremity shows occlusion of the [id number] SFA with a weak reconstitution of flow distally. His chest x-ray shows no evidence of pneumonia, CHF, pneumothorax or effusion. Lower extremity venous duplex was also obtained yesterday and there is no evidence of DVT in the right lower extremity. LABORATORIES: White count 8.3, hematocrit 40, platelets 199. INR 1.04. Sodium 139, potassium 3.6, BUN and creatinine 13/1.1, glucose 155. AST, ALT normal, alkaline phosphatase 198. Albumin 3.2. IMPRESSION: 1. Significant peripheral arterial disease, with history of right lower extremity bypass requiring removal for infection, now with re-occlusion requiring repeat right lower extremity bypass. 2. Diabetes, requiring insulin. 3. Former smoker. 4. Chronic hypertension. 5. Coronary artery disease. RECOMMENDATIONS: 1. An echocardiogram will be obtained for ejection fraction assessment and for surveillance of his mildly dilated ascending aorta. 2. Recommend continuation of metoprolol succinate, his outpatient medication, for control of blood pressure (being used for hypertension, history of coronary disease, and for his dilated aorta). 3. Continuation of antiplatelet therapy, as per Vascular Surgery. If Plavix or aspirin need to be stopped, defer to Dr. Sorensen. Presently, there are no absolute cardiac contraindications to vascular surgery: He has no symptoms of unstable angina; no aortic stenosis. He is in normal sinus rhythm and is currently euvolemic with no evidence of congestive heart failure. Overall, he would be considered at moderate risk for perioperative cardiac events due to his history of prior smoking, diabetes, hypertension, and coronary artery disease. He has a recent stress test with overall no change in symptoms since then which showed no ischemia and a normal ejection fraction. Postoperative ECG and cardiac enzymes will be monitored. Thank you for the consultation. Vitaly [id number]
[2018-03-02] MEDS: LOSARTAN 50MG/HCTZ 12.5MG 1 TAB (FP) PO SCH (12:07)
--- NOTE | 2018-03-02 12:13 | EKG ---
Test Reason : Blood Pressure : / mmHG Vent. Rate : 084 BPM Atrial Rate : 084 BPM P-R Int : 162 ms QRS Dur : 096 ms QT Int : 382 ms P-R-T Axes : 056 -10 044 degrees QTc Int : 451 ms NORMAL SINUS RHYTHM NORMAL ECG WHEN COMPARED WITH ECG OF 25-SEP-2017 14:35, NO SIGNIFICANT CHANGE WAS FOUND Confirmed by MD LYNDSAY, TONY ([id number]) on 03/02/2018 12:13:01 PM Referred By: Confirmed By:TONY UMANA MD
--- NOTE | 2018-03-02 21:29 | HP ---
Admitting History and Physical - Past Medical History Cardiovascular: Yes: HTN, Hyperlipdemia, Other (PAD) Gastrointestinal: Yes: Other (Obesity) Renal/: Yes: Renal Inusuff. 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 History of Recent Travel: Yes ([place] 2 weeks ago) Home Medications - Allergies Allergies/Adverse Reactions: Allergies Allergy/AdvReac Type Severity Reaction Status Date / Time No Known Allergies Allergy Verified 03/01/18 16:44 - Home Medications Home Medications: Ambulatory Orders Aspirin [ASA -] 81 mg PO DAILY 04/04/15 Insulin Pump Syringe, 1.8 ml [Thinset] 1 each MC DAILY 10/21/16 Amlodipine Besylate 10 mg PO DAILY 03/02/17 Atorvastatin Ca [Lipitor] 20 mg NR DAILY 03/02/17 Losartan/Hydrochlorothiazide [Losartan-Hctz 50-12.5 mg Tab] 1 each PO DAILY 09/06 Clopidogrel Bisulfate [Plavix -] 75 mg PO DAILY 09/02/17 Ibuprofen [Advil -] 400 mg PO PRN PRN 09/02/17 Metoprolol Succinate [Toprol XL -] 25 mg PO DAILY 09/02/17 Amoxicillin/Potassium Clav [Augmentin 875-125 Tablet] 1 each PO BID #14 tablet 10/01/17 Oxycodone HCl/Acetaminophen [Percocet 5-325 mg Tablet] 1 tab PO Q6H PRN #20 tablet MDD 4 10/02/17 Family Disease History - Family Disease History Family Disease History: Diabetes: Father, Heart Disease: Mother ( [place]) Physical Examination Vital Signs: Vital Signs Temperature 98.0 F 03/02/18 18:00 Pulse Rate 85 03/02/18 18:00 Respiratory Rate 19 03/02/18 18:00 Blood Pressure 135/75 03/02/18 18:00 O2 Sat by Pulse Oximetry (%) 97 03/02/18 10:30 Labs: CBC, BMP 03/02/18 07:45 03/02/18 07:45
[2018-03-02] MEDS: ATORVASTATIN CA 20 MG TABLET (FP) PO SCH (22:18)
[2018-03-02] MEDS: GABAPENTIN 300 MG CAPSULE (FP) PO SCH (23:44)
[2018-03-03] MEDS: GABAPENTIN 300 MG CAPSULE (FP) PO SCH ×3 (06:35→21:22)
--- NOTE | 2018-03-03 08:31 | PN ---
Progress Note, Physician Chief Complaint: Echo reviewed: normal LV fxn; diastolic dysfx; no ; ascending aorta 4.1, mildly dilated. He denies SOB, CP, palpitations. - Current Medication List Current Medications: Active Medications Atorvastatin Calcium (Lipitor -) 20 mg PO HS [facility] Last Admin: 03/02/18 22:18 Dose: 20 mg Gabapentin (Neurontin -) 300 mg PO TID [facility] Last Admin: 03/03/18 06:35 Dose: Not Given HCTZ/Losartan Potassium (Hyzaar -) 1 tab PO DAILY [facility] Last Admin: 03/02/18 12:07 Dose: 1 tab Metoprolol Succinate (Toprol Xl -) 25 mg PO DAILY [facility] Last Admin: 03/02/18 10:23 Dose: 25 mg Morphine Sulfate (Morphine Sulfate) 4 mg IVPUSH Q6H PRN PRN Reason: PAIN LEVEL 4 - 6 Last Admin: 03/02/18 12:07 Dose: 4 mg - Objective Vital Signs: Vital Signs Temperature 98.1 F 03/03/18 06:00 Pulse Rate 85 03/03/18 06:00 Respiratory Rate 19 03/03/18 06:00 Blood Pressure 143/75 03/03/18 06:00 O2 Sat by Pulse Oximetry (%) 100 03/02/18 21:00 Constitutional: Yes: No Distress, Calm Neck: Yes: Supple Cardiovascular: Yes: Regular Rate and Rhythm Respiratory: Yes: CTA Bilaterally, Other (slight decreased breath sounds bilaterally) Gastrointestinal: Yes: Soft, Abdomen, Obese Edema: No Peripheral Pulses WNL: No Peripheral Pulses: Right Dorsalis Pedis: 0 ...Motor Strength: WNL Labs: CBC, BMP 03/02/18 07:45 03/02/18 07:45 INR, PTT INR 1.04 (0.82-1.09) 03/01/18 17:12 Assessment/Plan IMP: 1. Significant PAD, h/o bypass now preop for repeat RLE bypass 2. DM 3. Former smoker 4. HTN 5. CAD REC: 1. Echo normal LVFx, evidence of diastolic dysfx. Ascending aorta mildly dilated , stable. No sig or AR. 2. To continue Toprol for BP control (prior CAD, and for his dilated aorta) 3. Continuation of Plavix preop as per Vascular surgery 4. Pulmonary consult for perior evaluation, suspected COPD There are no absolute cardiac contraindications to to Vascular surgery: no unstable anginal sx; no aortic stenosis. He is in NSR and is euvolemic. He would be considered at moderate risk for perioperative cardiac events due to his hx of smoking, DM, HTN, CAD. Please check post op ECG and cardiac enzymes x 3
[2018-03-03] MEDS ORDERED: PT OWN MED DRAWER 7, Y5N ONE (09:56)
[2018-03-03] MEDS: metoPROLOL SUCCINATE 25 MG TAB.SR.24H (FP) PO SCH (10:01)
[2018-03-03] MEDS: LOSARTAN 50MG/HCTZ 12.5MG 1 TAB (FP) PO SCH (10:01)
--- NOTE | 2018-03-03 13:23 | CON.PULM ---
Consult Consult Specialty:: PULMONARY Referred by:: Dr. Padron Reason for Consultation:: pulmonary clearance - History of Present Illness Chief Complaint: leg pain History of Present Illness: 47yo male with h/o HTN, DM, hyperlipidemia, PAD s/p RLE bypass who was admitted for right calf pain. Evaluated by vascular surgery who is planning repeat bypass. Pulmonary consulted for preoperative clearance. He denies any shortness of breath or chest pain. No chronic cough or wheezing. He has history of childhood asthma but not as an adult. He does not use any inhalers. He has unlimited exercise tolerance. Can climb 3-4 flights of stairs without difficulty. He is a former smoker, started at age 14, smoked on average 1 PPD and quit 4 years ago. He is a light snorer but no night time awakenings. He feels rested upon awakening and does not report excessive daytime somnolence. - History Source History Provided By: Patient, Medical Record Limitations to Obtaining History: No Limitations - Past Medical History Cardio/Vascular: Yes: HTN, Hyperlipdemia, Other (PAD) Gastrointestinal: Yes: Other (Obesity) Renal/: Yes: Renal Inusuff. 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 History of Recent Travel: Yes ([place] 2 weeks ago) Home Medications - Allergies Allergies/Adverse Reactions: Allergies Allergy/AdvReac Type Severity Reaction Status Date / Time No Known Allergies Allergy Verified 03/01/18 16:44 - Home Medications Home Medications: Ambulatory Orders Aspirin [ASA -] 81 mg PO DAILY 04/04/15 Insulin Pump Syringe, 1.8 ml [Thinset] 1 each MC DAILY 10/21/16 Amlodipine Besylate 10 mg PO DAILY 03/02/17 Atorvastatin Ca [Lipitor] 20 mg NR DAILY 03/02/17 Losartan/Hydrochlorothiazide [Losartan-Hctz 50-12.5 mg Tab] 1 each PO DAILY 09/06 Clopidogrel Bisulfate [Plavix -] 75 mg PO DAILY 09/02/17 Ibuprofen [Advil -] 400 mg PO PRN PRN 09/02/17 Metoprolol Succinate [Toprol XL -] 25 mg PO DAILY 09/02/17 Amoxicillin/Potassium Clav [Augmentin 875-125 Tablet] 1 each PO BID #14 tablet 10/01/17 Oxycodone HCl/Acetaminophen [Percocet 5-325 mg Tablet] 1 tab PO Q6H PRN #20 tablet MDD 4 10/02/17 Family Disease History - Family Disease History Family Disease History: Diabetes: Father, Heart Disease: Mother ( [place]) Review of Systems - Review of Systems Constitutional: denies: Chills, Fever Eyes: denies: Recent Change in Vision HENT: denies: Nasal Congestion, Throat Pain Neck: denies: Stiffness, Tenderness Cardiovascular: reports: Edema. denies: Chest Pain, Palpitations, Shortness of Breath Respiratory: denies: Cough, Exercise Intolerance, Hemoptysis, Orthopnea, SOB on Exertion, Wheezing Gastrointestinal: denies: Abdominal Pain, Nausea, Vomiting Genitourinary: denies: Dysuria, Hematuria Musculoskeletal: reports: Extremity Pain Neurological: denies: Dizziness, Headache Endocrine: denies: Unexplained Weight Gain, Unexplained Weight Loss Physical Exam Vital Sings: Vital Signs Temperature 98.1 F 03/03/18 06:00 Pulse Rate 92 H 03/03/18 09:00 Respiratory Rate 18 03/03/18 09:00 Blood Pressure 130/96 03/03/18 09:00 O2 Sat by Pulse Oximetry (%) 95 03/03/18 09:00 Constitutional: Yes: No Distress, Calm Eyes: Yes: Conjunctiva Clear, EOM Intact HENT: Yes: Atraumatic, Normocephalic Neck: Yes: Supple, Trachea Midline Cardiovascular: Yes: Regular Rate and Rhythm Respiratory: Yes: Regular, CTA Bilaterally ...Clubbing: No Gastrointestinal: Yes: Normal Bowel Sounds, Soft. No: Tenderness Edema: Yes Neurological: Yes: Alert, Oriented Labs: CBC, BMP 03/02/18 07:45 03/02/18 07:45 Imaging - Results Chest X-ray: Report Reviewed, Image Reviewed (no infiltrates) Problem List - Problems (1) Arterial occlusion Code(s): I70.90 - UNSPECIFIED ATHEROSCLEROSIS (2) Diabetes Code(s): E11.9 - TYPE 2 DIABETES MELLITUS WITHOUT COMPLICATIONS (3) HLD (hyperlipidemia) Code(s): E78.5 - HYPERLIPIDEMIA, UNSPECIFIED (4) HTN (hypertension) Code(s): I10 - ESSENTIAL (PRIMARY) HYPERTENSION (5) PAD (peripheral artery disease) Code(s): I73.9 - PERIPHERAL VASCULAR DISEASE, UNSPECIFIED (6) Acute renal failure Code(s): N17.9 - ACUTE KIDNEY FAILURE, UNSPECIFIED Qualifiers: Acute renal failure type: unspecified acute renal failure Assessment/Plan PAD/Arterial Occlusion Acute Kidney Injury HTN DM Hyperlipidemia - pt without respiratory complaints or pulmonary history aside from long smoking history, he has good exercise tolerance and does not have any symptoms of sleep apnea - no pulmonary contraindications for planned repeat bypass - post op DVT prophylaxis Thank you for this consult Jordin Morris MD
--- NOTE | 2018-03-03 17:13 | PN ---
Progress Note (short form) - Note Progress Note: No new complaints. No rest pain. Exam unchanged, foot warm. Cardiology and Pulmonary consults reviewed. CTA shows patent deep femoral artery for bypass to below knee popliteal. OR scheduling to be determined. Problem List - Problems (1) Rest pain of right lower extremity concurrent with and due to atherosclerosis of bypass graft Code(s): I70.321 - ATHSCL UNSP TYPE BYPASS OF THE EXTRM W REST PAIN, RIGHT LEG
[2018-03-03 21:20] VITALS: PULSE 82
[2018-03-03] MEDS: ATORVASTATIN CA 20 MG TABLET (FP) PO SCH (21:22)
--- NOTE | 2018-03-03 22:49 | PN ---
Progress Note, Physician - Current Medication List Current Medications: Active Medications Atorvastatin Calcium (Lipitor -) 20 mg PO HS [facility] Last Admin: 03/03/18 21:22 Dose: 20 mg Gabapentin (Neurontin -) 300 mg PO TID [facility] Last Admin: 03/03/18 21:22 Dose: 300 mg HCTZ/Losartan Potassium (Hyzaar -) 1 tab PO DAILY [facility] Last Admin: 03/03/18 10:01 Dose: 1 tab Metoprolol Succinate (Toprol Xl -) 25 mg PO DAILY [facility] Last Admin: 03/03/18 10:01 Dose: 25 mg Morphine Sulfate (Morphine Sulfate) 4 mg IVPUSH Q6H PRN PRN Reason: PAIN LEVEL 4 - 6 Last Admin: 03/02/18 12:07 Dose: 4 mg - Objective Vital Signs: Vital Signs Temperature 98.3 F 03/03/18 21:18 Pulse Rate 82 03/03/18 21:18 Respiratory Rate 20 03/03/18 21:18 Blood Pressure 121/76 03/03/18 21:18 O2 Sat by Pulse Oximetry (%) 95 03/03/18 09:00 Labs: CBC, BMP 03/02/18 07:45 03/02/18 07:45 INR, PTT INR 1.04 (0.82-1.09) 03/01/18 17:12
[2018-03-04] MEDS: GABAPENTIN 300 MG CAPSULE (FP) PO SCH ×2 (06:04→13:37)
--- NOTE | 2018-03-04 09:40 | PN ---
Progress Note, Physician Chief Complaint: Seen and examined in no acute distress - Current Medication List Current Medications: Active Medications Atorvastatin Calcium (Lipitor -) 20 mg PO HS [facility] Last Admin: 03/03/18 21:22 Dose: 20 mg Gabapentin (Neurontin -) 300 mg PO TID [facility] Last Admin: 03/04/18 06:04 Dose: 300 mg HCTZ/Losartan Potassium (Hyzaar -) 1 tab PO DAILY [facility] Last Admin: 03/03/18 10:01 Dose: 1 tab Metoprolol Succinate (Toprol Xl -) 25 mg PO DAILY [facility] Last Admin: 03/03/18 10:01 Dose: 25 mg Morphine Sulfate (Morphine Sulfate) 4 mg IVPUSH Q6H PRN PRN Reason: PAIN LEVEL 4 - 6 Last Admin: 03/02/18 12:07 Dose: 4 mg - Objective Vital Signs: Vital Signs Temperature 98.3 F 03/03/18 21:18 Pulse Rate 82 03/03/18 21:18 Respiratory Rate 20 03/03/18 21:18 Blood Pressure 121/76 03/03/18 21:18 O2 Sat by Pulse Oximetry (%) 100 03/03/18 21:00 Constitutional: Yes: No Distress, Calm Cardiovascular: Yes: Regular Rate and Rhythm Respiratory: Yes: Other (slight decreased breath sounds bilaterally; no active wheezing) Gastrointestinal: Yes: Soft, Abdomen, Obese Neurological: Yes: WNL ...Motor Strength: WNL Labs: CBC, BMP 03/02/18 07:45 03/02/18 07:45 INR, PTT INR 1.04 (0.82-1.09) 03/01/18 17:12 Assessment/Plan IMP: 1. Significant PAD, h/o bypass now preop for repeat RLE bypass 2. DM 3. Former smoker 4. HTN 5. CAD REC: 1. Echo normal LVFx, evidence of diastolic dysfx. Ascending aorta mildly dilated , stable. No sig or AR. 2. To continue Toprol for BP control (prior CAD, and for his dilated aorta) 3. Pulmonary consult for perior evaluation, suspected COPD, appreciated. There are no absolute cardiac contraindications to Vascular surgery- bypass will be scheduled in 2 weeks: no unstable anginal sx; no aortic stenosis. He is in NSR and is euvolemic. He would be considered at moderate risk for perioperative cardiac events due to his hx of smoking, DM, HTN, CAD. Please check post op ECG and cardiac enzymes x 3 and call me for periop consultation. D/w Dr. Sorensen, pt can continue the ASA/Plavix he was on.
[2018-03-04] MEDS ORDERED: ASPIRIN 81 MG CHEWABLE TABLETS PO SCH (10:00)
[2018-03-04] MEDS ORDERED: CLOPIDOGREL BISULFATE 75 MG TABLET (FP) PO SCH (10:00)
[2018-03-04] MEDS: LOSARTAN 50MG/HCTZ 12.5MG 1 TAB (FP) PO SCH (10:24)
[2018-03-04] MEDS: metoPROLOL SUCCINATE 25 MG TAB.SR.24H (FP) PO SCH (10:24)
[2018-03-04 10:27] VITALS: BP 124/81; TEMP 98.2
--- NOTE | 2018-03-04 12:06 | PN ---
Progress Note (short form) - Note Progress Note: Resting in NAD. [employer] CP or SOB. No acute events overnight. Intake & Output 03/01/18 03/02/18 03/03/18 03/04/18 23:59 23:59 23:59 23:59 Intake Total 1000 800 Balance 1000 800 Weight 290 lb 294 lb Last Vital Signs Temp Pulse Resp BP Pulse Ox 98.2 F 82 20 124/81 100 03/04/18 10:27 03/04/18 10:27 03/04/18 10:27 03/04/18 10:27 03/03/18 21:00 Active Medications Aspirin (Asa -) 81 mg PO DAILY [facility] Last Admin: 03/04/18 11:44 Dose: 81 mg Atorvastatin Calcium (Lipitor -) 20 mg PO HS [facility] Last Admin: 03/03/18 21:22 Dose: 20 mg Clopidogrel Bisulfate (Plavix -) 75 mg PO DAILY [facility] Last Admin: 03/04/18 11:44 Dose: 75 mg Gabapentin (Neurontin -) 300 mg PO TID [facility] Last Admin: 03/04/18 06:04 Dose: 300 mg HCTZ/Losartan Potassium (Hyzaar -) 1 tab PO DAILY [facility] Last Admin: 03/04/18 10:24 Dose: 1 tab Metoprolol Succinate (Toprol Xl -) 25 mg PO DAILY [facility] Last Admin: 03/04/18 10:24 Dose: 25 mg Morphine Sulfate (Morphine Sulfate) 4 mg IVPUSH Q6H PRN PRN Reason: PAIN LEVEL 4 - 6 Last Admin: 03/02/18 12:07 Dose: 4 mg Constitutional: Yes: No Distress, Calm Eyes: Yes: Conjunctiva Clear, EOM Intact HENT: Yes: Atraumatic, Normocephalic Neck: Yes: Supple, Trachea Midline Cardiovascular: Yes: Regular Rate and Rhythm Respiratory: Yes: Regular, CTA Bilaterally ...Clubbing: No Gastrointestinal: Yes: Normal Bowel Sounds, Soft. No: Tenderness Edema: Yes Neurological: Yes: Alert, Oriented Labs: Laboratory Results - last 24 hr 03/03/18 03/03/18 03/03/18 12:09 16:53 21:21 POC Glucometer 174 247 231 03/04/18 03/04/18 06:26 11:15 POC Glucometer 187 239 Problem List - Problems (1) Arterial occlusion Code(s): I70.90 - UNSPECIFIED ATHEROSCLEROSIS (2) Diabetes Code(s): E11.9 - TYPE 2 DIABETES MELLITUS WITHOUT COMPLICATIONS (3) HLD (hyperlipidemia) Code(s): E78.5 - HYPERLIPIDEMIA, UNSPECIFIED (4) HTN (hypertension) Code(s): I10 - ESSENTIAL (PRIMARY) HYPERTENSION (5) PAD (peripheral artery disease) Code(s): I73.9 - PERIPHERAL VASCULAR DISEASE, UNSPECIFIED (6) Acute renal failure Code(s): N17.9 - ACUTE KIDNEY FAILURE, UNSPECIFIED Qualifiers: Acute renal failure type: unspecified acute renal failure Assessment/Plan PAD/Arterial Occlusion Acute Kidney Injury HTN DM Hyperlipidemia Patient without respiratory complaints or pulmonary history aside from previous smoking history. He has good exercise tolerance. No clear history of OSAS, but at risk due to body habitus. There is no Pulmonary contraindication for planned procedure/anesthesia Post op VTE prophylaxis & Incentive Spirometry Dr Fletcher
--- NOTE | 2018-03-11 12:00 | DS ---
Physical Examination Vital Signs: Vital Signs Temperature 98.2 F 03/04/18 10:27 Pulse Rate 82 03/04/18 10:27 Respiratory Rate 20 03/04/18 10:27 Blood Pressure 124/81 03/04/18 10:27 O2 Sat by Pulse Oximetry (%) 97 03/04/18 09:00 Labs: CBC, BMP 03/02/18 07:45 03/02/18 07:45 Discharge Summary Reason For Visit: OCCLUSION OF ARTERY Condition: Good - Instructions Diet, Activity, Other Instructions: 2 gram sodium diet Pt to see Dr Buck in [address] Cooper in 1 week Referrals: Tate Sorensen MD [Primary Care Provider] - Disposition: HOME - Home Medications Comprehensive Discharge Medication List: Ambulatory Orders Aspirin [ASA -] 81 mg PO DAILY 04/04/15 Insulin Pump Syringe, 1.8 ml [Thinset] 1 each MC DAILY 10/21/16 Amlodipine Besylate 10 mg PO DAILY 03/02/17 Atorvastatin Ca [Lipitor] 20 mg NR DAILY 03/02/17 Losartan/Hydrochlorothiazide [Losartan-Hctz 50-12.5 mg Tab] 1 each PO DAILY 09/06 Clopidogrel Bisulfate [Plavix -] 75 mg PO DAILY 09/02/17 Ibuprofen [Advil -] 400 mg PO PRN PRN 09/02/17 Metoprolol Succinate [Toprol XL -] 25 mg PO DAILY 09/02/17 Aspirin [ASA -] 81 mg PO DAILY #30 tab.chew 03/04/18 Atorvastatin Ca [Lipitor] 20 mg PO HS #30 tablet 03/04/18 Clopidogrel Bisulfate [Plavix -] 75 mg PO DAILY #30 tablet 03/04/18 Gabapentin [Neurontin -] 300 mg PO TID #30 capsule 03/04/18 Losartan 50Mg/Hctz 12.5MG [Hyzaar -] 1 tab PO DAILY #30 tablet 03/04/18 Metoprolol Succinate [Toprol XL -] 25 mg PO DAILY #30 tab.sr.24h 03/04/18
== END 2018-03-04 14:31 | disposition home or self-care (01) | DRG 300 ==
LOC: JER 16:39 → JERBED 03-02 01:54 → UNDOADMIN 03-02 02:09 → J5S 03-02 04:02
PROVIDERS: ADMIT Internal Medicine; ATTEND Internal Medicine
DX: I73.9 Peripheral vascular disease, unspecified (principal); N17.9 Acute kidney failure, unspecified; E11.9 Type 2 diabetes mellitus without complications; I10 Essential (primary) hypertension; I25.10 Atherosclerotic heart disease of native coronary artery without angina pectoris; E78.5 Hyperlipidemia, unspecified; I70.321 Atherosclerosis of unspecified type of bypass graft(s) of the extremities with rest pain, right leg; Z87.891 Personal history of nicotine dependence
CPT/HCPCS: 36415; 71045-TC-FY; 75635-TC; 80053; 82962; 85025; 85610; 85730; 93005; 93010; 93306-TC; 93926-TC; 93971-TC; 99283-25

== ENCOUNTER 2018-07-29 16:51 | Inpatient (IN) | payer OTHER ==
--- NOTE | 2018-07-29 16:57 | PDOC ---
Rapid Medical Evaluation Chief Complaint: Abscess Boil Time Seen by Provider: 07/29/18 16:53 Medical Evaluation: Allergies Allergy/AdvReac Type Severity Reaction Status Date / Time No Known Allergies Allergy Verified 04/07/18 08:18 07/29/18 16:54 I have performed a brief in-person evaluation of this patient. The patient presents with a chief complaint of: Blister to left great toe, sent by Dr Cooper for admission for R/O Osteo Pertinent physical exam findings: Is wrapped by - blister is circumfrential to great toe, I have ordered the following: CBC, CMP, Blood Cx, Xray foot left The patient will proceed to the ED for further evaluation.
--- NOTE | 2018-07-29 17:19 | PDOC ---
History of Present Illness - General Chief Complaint: Wound Stated Complaint: PCP SENT/INFECTION Time Seen by Provider: 07/29/18 16:53 - History of Present Illness Initial Comments: 07/29/18 17:52 The patient is a 48 year old male with a history of HTN, HLD, DM, PVD who presents for evaluation of a left 1st toe wound. The patient notes a worsening blister to his left 1st toe over the past week. He noted purulent drainage from the toe today prompting his presentation to his primary care provider Dr. Cooper who sent the patient in for admission and evaluate of osteomylitis. The patient otherwise denies fevers, chills, SOB, chest pain, nausea, vomiting, abdominal pain, or changes with urination or bowel movements. Past History - Past Medical History Allergies/Adverse Reactions: Allergies Allergy/AdvReac Type Severity Reaction Status Date / Time No Known Allergies Allergy Verified 07/29/18 16:57 Home Medications: Ambulatory Orders Insulin Pump Syringe, 1.8 ml [Thinset] 1 each MC DAILY 10/21/16 Losartan/Hydrochlorothiazide [Losartan-Hctz 50-12.5 mg Tab] 1 each PO DAILY 09/06 Aspirin [ASA -] 81 mg PO DAILY #30 tab.chew 03/04/18 Atorvastatin Ca [Lipitor] 20 mg PO HS #30 tablet 03/04/18 Clopidogrel Bisulfate [Plavix -] 75 mg PO DAILY #30 tablet 03/04/18 Gabapentin [Neurontin -] 300 mg PO TID #30 capsule 03/04/18 Metoprolol Succinate [Toprol XL -] 25 mg PO DAILY #30 tab.sr.24h 03/04/18 Amlodipine Besylate 5 mg PO DAILY 04/07/18 Acetaminophen [Tylenol .Regular Strength -] 650 mg PO Q6H PRN tablet 04/12/18 Anemia: No COPD: No DVT: No (rt leg, has stent) Diabetes: Yes HTN: Yes Hypercholesterolemia: Yes Other medical history: circulation problems. - Surgical History Lung Surgery: Yes (lung tumor removed at age 6 months) Neurologic Surgery: No Orthopedic Surgery: Yes (LFT carpal tunnel ,LFT rotator muscles) - Immunization History Immunization Up to Date: Yes - Suicide/Smoking/Psychosocial Hx Smoking History: Never smoked Have you smoked in the past 12 months: Yes Number of Cigarettes Smoked Daily: 0 If you are a former smoker, when did you quit?: 10/2014 Information on smoking cessation initiated: No 'Breaking Loose' booklet given: 02/01/14 Hx Alcohol Use: No Drug/Substance Use Hx: No Substance Use Type: None Hx Substance Use Treatment: No Review of Systems - Review of Systems Comments:: 07/29/18 17:56 Constitutional: No fevers, chills, fatigue, malaise HEENT: No Rhinorrhea, nasal congestion, visual changes Cardiovascular: No chest pain, syncope, palpitations, lightheadedness Respiratory: No Cough, SOB, Hemoptysis, Gastrointestinal: No Abdominal pain, Nausea, Vomiting, Constipation, Diarrhea, Melena Genitourinary: No Dysuria, Frequency, Urgency, Hesitancy, Hematuria, Flank pain Musculoskeletal: No Myalgia, arthralgia Skin: Would to the left 1st toe. No rashes, itching, bruising, pallor Neurologic: No Headache, Dizziness, Numbness, Weakness, or Tingling Psychiatric: No Hallucinations. No SI or HI *Physical Exam - Vital Signs Last Vital Signs Temp Pulse Resp BP Pulse Ox 98.9 F 117 H 20 128/100 100 07/29/18 16:54 07/29/18 16:54 07/29/18 16:54 07/29/18 16:54 07/29/18 16:54 - Physical Exam Comments: 07/29/18 17:57 General Appearance: Nourished. No Apparent Distress HEENT: No Pharyngeal Erythema, Tonsillar Exudate, Tonsillar Erythema Neck: No Cervical Lymphadenopathy Respiratory/Chest: Lungs Clear, Normal Breath Sounds. No Crackles, Rales, Rhonchi, Wheezing Cardiovascular: Regular Rhythm, Regular Rate. No Murmur, Gallops, Rubs Gastrointestinal/Abdominal: Normal Bowel Sounds, Soft. No Guarding, Rebound, Tenderness Musculoskeletal: No CVA Tenderness Extremity: Wound to the medial aspect of the left 1st toe with purulent drainage noted on exam. Normal Capillary Refill Integumentary: Normal Color, Dry, Warm Neurologic: Fully Oriented, Alert, Normal Mood/Affect, Normal Response, ED Treatment Course - LABORATORY CBC & Chemistry Diagram: 07/29/18 17:15 07/29/18 17:15 Medical Decision Making - Medical Decision Making 07/29/18 17:57 The patient is a 48 year old male with a history of HTN, HLD, DM, PVD who presents for evaluation of a left 1st toe wound. Differential includes but is not limited to: Wound infection, Cellulitis, Osteomylitis, Infectious, Metabolic Derangement. Given the patient's history and physical exam, we will obtain a cbc, cmp, lactate, blood cultures, plain films to evaluate further. We will treat with vanc and zosyn and continue to monitor and reassess while here in the ED. 07/29/18 19:06 CBC, cmp is unremarkable. Lactate is elevated to 2.7. Plain films are unremarkable as read by our radiologist. We discussed the case with Dr. Hall who accepted the patient for admission. We will continue to monitor and reassess while here in the ED. *DC/Admit/Observation/Transfer Diagnosis at time of Disposition: Wound infection - Discharge Dispostion Condition at time of disposition: Stable Decision to Admit order: Yes - Referrals Referrals: Nikolay Cooper MD [Primary Care Provider] - - Patient Instructions - Post Discharge Activity
[2018-07-29 17:43] LABS: EOS % 2.5 % (0-4.5); HEMATOCRIT 42.6 % (35.4-49); HEMOGLOBIN 13.9 GM/dL (11.7-16.9); LYMPH % 24.1 % (8-40); MCHC 32.7 g/dl (32.0-35.9); MEAN CELL VOLUME 82.4 fl (80-96); MEAN PLT VOLUME 7.7 fl (7.5-11.1); NEUT % 66.4 % (42.8-82.8); PLATELET COUNT 231 K/MM3 (134-434); RBC 5.17 M/mm3 (4.00-5.60); WHITE BLOOD COUNT 8.5 K/mm3 (4.0-10.0)
[2018-07-29] MEDS ORDERED: VANCOMYCIN 1 GRAM (PRE-DOCKED) 1,000 MG/250 ML BAG IVPB ONE ×2 (17:45→18:19)
[2018-07-29] MEDS ORDERED: PIPERACILLIN/TAZOB 4.5 GM 4.5 GM in DEXTROSE 5%-WATER 100 ML IVPB ONE (17:45)
[2018-07-29 18:17] LABS: ALBUMIN 3.4 g/dl (3.4-5.0); ALK PHOS 252 U/L (45-117); ANION GAP 11 MMOL/L (8-16); BILIRUBIN,TOTAL 0.5 mg/dL (0.2-1); BLOOD UREA NITROGEN 19 mg/dL (7-18); CALCIUM 8.8 mg/dL (8.5-10.1); CHLORIDE 99 mmol/L (98-107); CO2 26 mmol/L (21-32); CREATININE 1.3 mg/dL (0.55-1.3); GLUCOSE,RANDOM 295 mg/dL (74-106); POTASSIUM 4.1 mmol/L (3.5-5.1); SGOT/AST 8 U/L (15-37); SGPT/ALT 19 U/L (13-61); SODIUM 136 mmol/L (136-145); TOT PROT 6.9 g/dl (6.4-8.2)
[2018-07-29] MEDS ORDERED: PIPERACILLIN/TAZOB 4.5 GM 4.5 GM/100 ML BAG IVPB ONE (18:19)
[2018-07-29 18:26] LABS: INR 1.03 (0.83-1.09); PROTHROMBIN TIME (PATIENT) 12.2 SEC (9.7-13.0)
[2018-07-29 18:29] LABS: ACTIVATED PTT 26.4 SECONDS (25.2-36.5)
[2018-07-29] MEDS ORDERED: SODIUM CHLORIDE 1,000 ML IV STA (18:29)
--- NOTE | 2018-07-29 18:44 | PDOC ---
Attending Attestation - Resident Resident Name: Caesar Cruz - ED Attending Attestation I have performed the following: I have examined & evaluated the patient, The case was reviewed & discussed with the resident, I agree w/resident's findings & plan, Exceptions are as noted - Medical Decision Making 07/29/18 18:42 A portion of this note was documented by scribe services under my direction. I have reviewed the details of the note, within reason, and agree with the documentation with the following case summary and management plan written by me. Patient treated in the ED. Nursing notes are reviewed and incorporated into the medical decision-making. Vital signs reviewed. Peripheral IV access obtained by the nurse, laboratory studies are drawn and sent, reviewed and interpreted by myself. Vital Signs Temp Pulse Resp BP Pulse Ox 98.6 F 112 H 18 151/96 96 07/29/18 18:19 18 18:19 07/29/18 18:19 07/29/18 18:19 07/29/18 18:19 48-year-old male with history of hypertension, diabetes, peripheral vascular disease presents with left toe infection. Patient reported that he developed an injury to his left great toe. Subsequently developed worsening wound. Patient is his primary care physician who sent the patient ER to rule out osteomyelitis and for IV antibiotics. Patient denies fevers or chills. Denies numbness. Patient's has a toe infection. We'll need to obtain blood cultures and give IV antibiotics. We'll need to rule out osteomyelitis. Admit to the hospital. <Feng Estrada - Last Filed: 07/29/18 18:42> - HPI HPI: 07/29/18 18:47 Patient is a 48 year old male with a significant past medical history of HTN, HLD, DM, PVD , who presents to the ED with complaints of left big toe wound. Patient reports experiencing left big toe pain s/p wound that occured x1 week ago. He reports blister wound on left big toe has been gradually getting worse over time. Patient reports noticing drainage from wound this afternoon prompting him to come into the ED for further evaluation. He reports speaking with his PCP who advised he come into the ED for further IV antibiotics and admission. Denies chest pain, Sob. Denies nausea, vomiting. Denies contact with sick individuals, out of state travel. Denies fevers, chills. Denies fevers, chills. Denies nausea, vomiting. Allergies: NKDA Social history: No smoking. No alcohol. No illicit drugs. Surgical history: Bypass PMD: None - Physicial Exam PE: 07/29/18 18:47 GENERAL: Awake, alert, and fully oriented, in no acute distress HEAD: No signs of trauma EYES: PERRLA, EOMI, sclera anicteric, conjunctiva clear ENT: Auricles normal inspection, hearing grossly normal, nares patent, oropharynx clear without exudates. Moist mucosa NECK: Normal ROM, supple, no lymphadenopathy, JVD, or masses ABDOMEN: Soft, nontender, normoactive bowel sounds. No guarding, no rebound. No masses EXTREMITIES: +2 plus DP pulses. +Wound to left great toe. +small wound to left third toe. +Wound ulcerous on great toe with foul smell. Normal range of motion, no edema. No clubbing or cyanosis. No cords, erythema, or tenderness NEUROLOGICAL: Cranial nerves II through XII grossly intact. Normal speech, normal gait SKIN: Warm, Dry, normal turgor, no rashes or lesions noted. <Suresh Blood - Last Filed: 07/29/18 18:47>
[2018-07-30 00:23] VITALS: BMI 38.7
[2018-07-30] MEDS ORDERED: VANCOMYCIN 1,000 MG in DEXTROSE 5%-WATER - 250 ML IVPB SCH (02:15)
[2018-07-30] MEDS ORDERED: DEXTROSE 5%-WATER - 50 ML IVPB ONE ×2 (02:38→09:35)
[2018-07-30] MEDS ORDERED: PIPERACILLIN/TAZOBACTAM 3.375 GM VIAL IVPB ONE ×2 (02:38→09:35)
[2018-07-30] MEDS: PIPERACILLIN/TAZOB 3.375 GM 3.375 GM in DEXTROSE 5%-WATER - 50 ML IVPB SCH ×3 (02:43→17:34)
[2018-07-30] MEDS ORDERED: oxyCODONE HCL 5 MG TABLET PO PRN (03:02)
[2018-07-30] MEDS ORDERED: ACETAMINOPHEN 325 MG TABLET (FP) PO PRN (03:02)
[2018-07-30] MEDS ORDERED: VANCOMYCIN 1 GRAM (PRE-DOCKED) 1,000 MG/250 ML BAG IVPB ONE (06:30)
[2018-07-30] MEDS: GABAPENTIN 300 MG CAPSULE (FP) PO SCH ×3 (06:52→22:18)
[2018-07-30] MEDS: INSULIN SLIDING SCALE (NOVOLOG) 1 VIAL SQ SCH ×4 (07:01→22:17)
--- NOTE | 2018-07-30 07:40 | EKG ---
Test Reason : Blood Pressure : / mmHG Vent. Rate : 102 BPM Atrial Rate : 102 BPM P-R Int : 158 ms QRS Dur : 084 ms QT Int : 354 ms P-R-T Axes : 071 -23 041 degrees QTc Int : 461 ms SINUS TACHYCARDIA POSSIBLE LEFT ATRIAL ENLARGEMENT WHEN COMPARED WITH ECG OF 02-MAR-2018 00:54, NO SIGNIFICANT CHANGE WAS FOUND Confirmed by SULTANA BARTLETT MD ([id number]) on 07/30/2018 7:40:25 AM Referred By: Confirmed By:SULTANA BARTLETT MD
[2018-07-30 07:57] LABS: BASO % 0.9 % (0-2.0); EOS % 3.9 % (0-4.5); HEMATOCRIT 38.9 % (35.4-49); HEMOGLOBIN 12.7 GM/dL (11.7-16.9); LYMPH % 32.7 % (8-40); MCH 26.6 pg (25.7-33.7); MCHC 32.6 g/dl (32.0-35.9); MEAN CELL VOLUME 81.6 fl (80-96); MEAN PLT VOLUME 7.9 fl (7.5-11.1); MONO % 7.1 % (3.8-10.2); NEUT % 55.4 % (42.8-82.8); PLATELET COUNT 201 K/MM3 (134-434); RBC 4.77 M/mm3 (4.00-5.60); RDW 14.9 % (11.9-15.9); WHITE BLOOD COUNT 8.9 K/mm3 (4.0-10.0)
[2018-07-30 08:34] LABS: ALBUMIN 2.9 g/dl (3.4-5.0); ALK PHOS 214 U/L (45-117); ANION GAP 9 MMOL/L (8-16); BILIRUBIN,TOTAL 0.6 mg/dL (0.2-1); BLOOD UREA NITROGEN 15 mg/dL (7-18); CALCIUM 8.2 mg/dL (8.5-10.1); CHLORIDE 102 mmol/L (98-107); CO2 27 mmol/L (21-32); CREATININE 1.2 mg/dL (0.55-1.3); GLUCOSE,RANDOM 218 mg/dL (74-106); POTASSIUM 3.8 mmol/L (3.5-5.1); SGOT/AST 9 U/L (15-37); SGPT/ALT 16 U/L (13-61); SODIUM 137 mmol/L (136-145)
--- NOTE | 2018-07-30 08:34 | CON.ID ---
Consult Consult Specialty:: infectious diseases Referred by:: Reason for Consultation:: infected left great toe,cellulitis of left great toe - History of Present Illness Chief Complaint: wound on the left great toe History of Present Illness: 48 year old male with a history of HTN, HLD, DM, PVD admitted for evaluation of a left 1st toe wound. The patient had a worsening blister to his left 1st toe over the past week. He noted purulent drainage from the toe today prompting his presentation to his primary care who is worried about the infection and probable osteo of the foot. patient lilli johnsonl blood supply in the legs and had been operated on the rt leg by vascular before currently patient is stable and feels much better his toe blister has ruptured and his wound looks better - History Source History Provided By: Patient Limitations to Obtaining History: No Limitations - Past Medical History Cardio/Vascular: Yes: HTN, Hyperlipdemia, Other (PAD) Gastrointestinal: Yes: Other (Obesity) Renal/: Yes: Renal Inusuff. 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 History of Recent Travel: Yes ([place] 2 weeks ago) Home Medications - Allergies Allergies/Adverse Reactions: Allergies Allergy/AdvReac Type Severity Reaction Status Date / Time No Known Allergies Allergy Verified 07/29/18 16:57 - Home Medications Home Medications: Ambulatory Orders Insulin Pump Syringe, 1.8 ml [Thinset] 1 each MC DAILY 10/21/16 Losartan/Hydrochlorothiazide [Losartan-Hctz 50-12.5 mg Tab] 1 each PO DAILY 09/06 Aspirin [ASA -] 81 mg PO DAILY #30 tab.chew 03/04/18 Atorvastatin Ca [Lipitor] 20 mg PO HS #30 tablet 03/04/18 Clopidogrel Bisulfate [Plavix -] 75 mg PO DAILY #30 tablet 03/04/18 Gabapentin [Neurontin -] 300 mg PO TID #30 capsule 03/04/18 Metoprolol Succinate [Toprol XL -] 25 mg PO DAILY #30 tab.sr.24h 03/04/18 Amlodipine Besylate 5 mg PO DAILY 04/07/18 Acetaminophen [Tylenol .Regular Strength -] 650 mg PO Q6H PRN tablet 04/12/18 Family Disease History - Family Disease History Family Disease History: Diabetes: Father, Heart Disease: Mother ( [place]) Review of Systems - Review of Systems Constitutional: reports: No Symptoms Eyes: reports: No Symptoms HENT: reports: No Symptoms Neck: reports: No Symptoms Cardiovascular: reports: No Symptoms Respiratory: reports: No Symptoms Gastrointestinal: reports: No Symptoms Genitourinary: reports: No Symptoms Musculoskeletal: reports: No Symptoms Integumentary: reports: No Symptoms, Erythema, Wound Neurological: reports: No Symptoms Endocrine: reports: No Symptoms Hematology/Lymphatic: reports: No Symptoms Psychiatric: reports: No Symptoms Physical Exam Vital Signs: Vital Signs Temperature 98 F 07/30/18 06:00 Pulse Rate 94 H 07/30/18 06:00 Respiratory Rate 20 07/30/18 06:00 Blood Pressure 151/83 07/30/18 06:00 O2 Sat by Pulse Oximetry (%) 97 07/29/18 21:38 Constitutional: Yes: Well Nourished, Calm, Obese Eyes: Yes: Conjunctiva Clear HENT: Yes: Atraumatic, Normocephalic Neck: Yes: Supple, Trachea Midline Cardiovascular: Yes: Regular Rate and Rhythm Respiratory: Yes: Regular, CTA Bilaterally Gastrointestinal: Yes: Normal Bowel Sounds, Soft Musculoskeletal: Yes: WNL Extremities: Yes: Other Integumentary: Yes: Erythema Wound/Incision: Yes: Clean/Dry, Open to air Neurological: Yes: Alert, Oriented Psychiatric: Yes: Alert, Oriented Labs: CBC, BMP 07/30/18 06:30 Imaging - Results X-ray: Report Reviewed, Image Reviewed Assessment/Plan this patient with toe wound after rupturing of the blister and having purulent drainage with h/o of pvd coming to the hospital because of cellulitits and worry for osteo i think the wound is a superficial and after looking at the xrays the chances of him having osteo is on the lower side but we will see what the cx results show and then decide to get an mri if needed cellulitis of the left foot wound of left great toe wound infection pvd plan will continue on zosyn await for final cx to be back elevation of the leg rest as per the team
[2018-07-30] MEDS: metoPROLOL SUCCINATE 25 MG TAB.SR.24H (FP) PO SCH (09:54)
[2018-07-30] MEDS: ASPIRIN 81 MG CHEWABLE TABLETS PO SCH (09:54)
[2018-07-30] MEDS: CLOPIDOGREL BISULFATE 75 MG TABLET (FP) PO SCH (09:54)
[2018-07-30] MEDS: amLODIPine BESYLATE 5 MG TABLET (FP) PO SCH (09:54)
[2018-07-30] MEDS: HEPARIN NA (PORCINE) 5,000 UNITS/ML 1ML VIAL SQ SCH ×2 (09:55→22:18)
[2018-07-30] MEDS: LOSARTAN 50MG/HCTZ 12.5MG 1 TAB (FP) PO SCH (09:56)
--- NOTE | 2018-07-30 10:05 | CONSULT ---
- Consultation REQUESTING PROVIDER: CONSULT REQUEST: We have been asked to surgically evaluate this patient for left toe ulcer. PCP:Montserrat Hall HISTORY OF PRESENT ILLNESS: The patient is 48 yo male with a history of peripheral vascular disease. s/p RLE bypass in 04/[address] [facility]. Th epatient routinely checks his lower feet because he has a history of lower ext peripheral neuropathy. He noticed about 6 days ago that he had a blister to his left great toe and went to see his PMD who sent him for admission. He denies any injury and changes to shoes that could have caused injury. No fevers or chills. His right leg feels good but he has noticed increase in calf pain on the left with ambulation. He ambulates with a crutch for assistance. PMHx: diabetes, with peripheral neuropathy , HTN, high cholesterol PSHx: RLE bypass deep femoral to popliteal with reverse saphrenous vein Home Medications Medication Instructions Recorded Insulin Pump Syringe, 1.8 ml 1 each MC DAILY 10/21/16 [Thinset] Losartan/Hydrochlorothiazide 1 each PO DAILY 03/02/17 [Losartan-Hctz 50-12.5 mg Tab] Aspirin [ASA -] 81 mg PO DAILY #30 tab.chew 03/04/18 Atorvastatin Ca [Lipitor] 20 mg PO HS #30 tablet 03/04/18 Clopidogrel Bisulfate [Plavix -] 75 mg PO DAILY #30 tablet 03/04/18 Gabapentin [Neurontin -] 300 mg PO TID #30 capsule 03/04/18 Metoprolol Succinate [Toprol XL -] 25 mg PO DAILY #30 tab.sr.24h 03/04/18 Amlodipine Besylate 5 mg PO DAILY 04/07/18 Acetaminophen [Tylenol .Regular 650 mg PO Q6H PRN tablet 04/12/18 Strength -] Allergies Allergy/AdvReac Type Severity Reaction Status Date / Time No Known Allergies Allergy Verified 07/29/18 16:57 REVIEW OF SYSTEMS: CONSTITUTIONAL: Absent: fever, chills Absent: chest pain RESPIRATORY: Absent: cough, shortness of breath GASTROINTESTINAL: Absent: abdominal pain, abdominal distension GENITOURINARY: Absent: dysuria SKIN: Present:left great to blister PHYSICAL EXAM: GENERAL: Awake, alert, and fully oriented, in no acute distress. LOWER EXTREMITIES: RLE 2+ DP pulses, warm, well-perfused. Inc clean and dry. Healed well. Left leg, no evidence of ischemia, +2 DP and PT with doppler. great left toe with blister 5x3 cm. 2nd to with tip on plantar surface dry gangrene. No erythema or drainage noted. feet are warm to touch bilaterally NEUROLOGICAL: Normal speech, gait not observed. PSYCH: Cooperative. Good eye contact. Appropriate mood and affect. Vital Signs Temperature 98 F 07/30/18 06:00 Pulse Rate 94 H 07/30/18 06:00 Respiratory Rate 20 07/30/18 06:00 Blood Pressure 151/83 07/30/18 06:00 O2 Sat by Pulse Oximetry (%) 97 07/29/18 21:38 Lab Results WBC 8.9 K/mm3 (4.0-10.0) 07/30/18 06:30 RBC 4.77 M/mm3 (4.00-5.60) 07/30/18 06:30 Hgb 12.7 GM/dL (11.7-16.9) 07/30/18 06:30 Hct 38.9 % (35.4-49) 07/30/18 06:30 MCV 81.6 fl (80-96) 07/30/18 06:30 MCHC 32.6 g/dl (32.0-35.9) 07/30/18 06:30 RDW 14.9 % (11.9-15.9) 07/30/18 06:30 Plt Count 201 K/MM3 (134-434) 07/30/18 06:30 Sodium 137 mmol/L (136-145) 07/30/18 06:30 Potassium 3.8 mmol/L (3.5-5.1) 07/30/18 06:30 Chloride 102 mmol/L (98-107) 07/30/18 06:30 Carbon Dioxide 27 mmol/L (21-32) 07/30/18 06:30 Anion Gap 9 MMOL/L (8-16) 07/30/18 06:30 BUN 15 mg/dL (7-18) 07/30/18 06:30 Creatinine 1.2 mg/dL (0.55-1.3) 07/30/18 06:30 Random Glucose 218 mg/dL (74-106) H 07/30/18 06:30 Calcium 8.2 mg/dL (8.5-10.1) L 07/30/18 06:30 INR 1.03 (0.83-1.09) 07/29/18 17:15 Laboratory Tests 07/30/18 07:00 POC Glucometer 250 `Xray: arthrititc changes, no destructive changes seen, swelling noted to left great toe Microbiology blood cultures pending/wound culture Problem List - Problems (1) Blister Assessment/Plan: Left toe blister with a history of diabetic neuropathy and PVD. Admitted to the hospital for left great toe infection and placed on IV abx. No evidence of erythema/drainage to the foot/blister. The blister remains intact and ordered local wound care with Gentamicin/gauze and kerlix. Case D/w Dr. Carias who is covering for Dr. Sorensen. Glucose control as per the medical team. Code(s): T14.8XXA - OTHER INJURY OF UNSPECIFIED BODY REGION, INITIAL ENCOUNTER
[2018-07-30] MEDS: GENTAMICIN SO4 0.1% TOP CREAM 15 GM/TUBE TP SCH ×2 (13:21→22:19)
--- NOTE | 2018-07-30 16:16 | HP ---
Admitting History and Physical - Past Medical History Cardiovascular: Yes: HTN, Hyperlipdemia, Other (PAD) Gastrointestinal: Yes: Other (Obesity) Renal/: Yes: Renal Inusuff. 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 History of Recent Travel: Yes ([place] 2 weeks ago) Home Medications - Allergies Allergies/Adverse Reactions: Allergies Allergy/AdvReac Type Severity Reaction Status Date / Time No Known Allergies Allergy Verified 07/29/18 16:57 - Home Medications Home Medications: Ambulatory Orders Insulin Pump Syringe, 1.8 ml [Thinset] 1 each MC DAILY 10/21/16 Losartan/Hydrochlorothiazide [Losartan-Hctz 50-12.5 mg Tab] 1 each PO DAILY 09/06 Aspirin [ASA -] 81 mg PO DAILY #30 tab.chew 03/04/18 Atorvastatin Ca [Lipitor] 20 mg PO HS #30 tablet 03/04/18 Clopidogrel Bisulfate [Plavix -] 75 mg PO DAILY #30 tablet 03/04/18 Gabapentin [Neurontin -] 300 mg PO TID #30 capsule 03/04/18 Metoprolol Succinate [Toprol XL -] 25 mg PO DAILY #30 tab.sr.24h 03/04/18 Amlodipine Besylate 5 mg PO DAILY 04/07/18 Acetaminophen [Tylenol .Regular Strength -] 650 mg PO Q6H PRN tablet 04/12/18 Family Disease History - Family Disease History Family Disease History: Diabetes: Father, Heart Disease: Mother ( [place]) Physical Examination Vital Signs: Vital Signs Temperature 98.1 F 07/30/18 14:47 Pulse Rate 91 H 07/30/18 14:47 Respiratory Rate 18 07/30/18 14:47 Blood Pressure 132/79 07/30/18 14:47 O2 Sat by Pulse Oximetry (%) 98 07/30/18 09:00 Labs: CBC, BMP 07/30/18 06:30 07/30/18 06:30
[2018-07-30] MEDS ORDERED: PIPERACILLIN/TAZOB 3.375 GM 3.375 GM in DEXTROSE 5%-WATER - 50 ML IVPB SCH (18:00)
[2018-07-30] MEDS ORDERED: VANCOMYCIN 1 GRAM (PRE-DOCKED) 1,000 MG/250 ML BAG IVPB SCH (18:30)
[2018-07-30] MEDS ORDERED: PT OWN MED DRAWER 7, Y5N ONE (21:58)
[2018-07-30] MEDS: ATORVASTATIN CA 20 MG TABLET (FP) PO SCH (22:18)
[2018-07-31] MEDS ORDERED: PIPERACILLIN/TAZOBACTAM 3.375 GM VIAL IVPB ONE ×2 (01:07→08:52)
[2018-07-31] MEDS ORDERED: DEXTROSE 5%-WATER - 50 ML IVPB ONE ×2 (01:08→08:52)
[2018-07-31] MEDS: PIPERACILLIN/TAZOB 3.375 GM 3.375 GM in DEXTROSE 5%-WATER - 50 ML IVPB SCH ×2 (01:28→09:07)
[2018-07-31] MEDS: GABAPENTIN 300 MG CAPSULE (FP) PO SCH ×3 (05:24→21:06)
[2018-07-31] MEDS: INSULIN SLIDING SCALE (NOVOLOG) 1 VIAL SQ SCH ×4 (06:35→21:07)
[2018-07-31] MEDS ORDERED: PT OWN MED DRAWER 7, Y5N ONE ×3 (06:38→15:22)
[2018-07-31 07:46] LABS: BASO % 0.7 % (0-2.0); HEMATOCRIT 41.1 % (35.4-49); HEMOGLOBIN 13.1 GM/dL (11.7-16.9); MCH 26.2 pg (25.7-33.7); MCHC 31.9 g/dl (32.0-35.9); MONO % 5.8 % (3.8-10.2); NEUT % 54.5 % (42.8-82.8); PLATELET COUNT 207 K/MM3 (134-434); RBC 5.02 M/mm3 (4.00-5.60); RDW 14.8 % (11.9-15.9); WHITE BLOOD COUNT 8.6 K/mm3 (4.0-10.0)
[2018-07-31 08:42] LABS: ALBUMIN 3.1 g/dl (3.4-5.0); ALK PHOS 211 U/L (45-117); ANION GAP 10 MMOL/L (8-16); BILIRUBIN,TOTAL 0.6 mg/dL (0.2-1); BLOOD UREA NITROGEN 11 mg/dL (7-18); CALCIUM 8.4 mg/dL (8.5-10.1); CHLORIDE 99 mmol/L (98-107); CO2 27 mmol/L (21-32); CREATININE 1.1 mg/dL (0.55-1.3); GLUCOSE,RANDOM 204 mg/dL (74-106); POTASSIUM 3.8 mmol/L (3.5-5.1); SGOT/AST 9 U/L (15-37); SGPT/ALT 17 U/L (13-61); SODIUM 136 mmol/L (136-145); TOT PROT 6.3 g/dl (6.4-8.2)
[2018-07-31] MEDS: HEPARIN NA (PORCINE) 5,000 UNITS/ML 1ML VIAL SQ SCH ×2 (09:06→21:06)
[2018-07-31] MEDS: CLOPIDOGREL BISULFATE 75 MG TABLET (FP) PO SCH (09:07)
[2018-07-31] MEDS: amLODIPine BESYLATE 5 MG TABLET (FP) PO SCH (09:07)
[2018-07-31] MEDS: LOSARTAN 50MG/HCTZ 12.5MG 1 TAB (FP) PO SCH (09:07)
[2018-07-31] MEDS: ASPIRIN 81 MG CHEWABLE TABLETS PO SCH (09:07)
[2018-07-31] MEDS: metoPROLOL SUCCINATE 25 MG TAB.SR.24H (FP) PO SCH (09:07)
[2018-07-31] MEDS: GENTAMICIN SO4 0.1% TOP CREAM 15 GM/TUBE TP SCH ×2 (11:03→21:10)
--- NOTE | 2018-07-31 14:14 | PN ---
Progress Note, Physician History of Present Illness: stable doing well no issues - Current Medication List Current Medications: Active Medications Acetaminophen (Tylenol -) 325 mg PO Q6H PRN PRN Reason: PAIN LEVEL 6-10 Amlodipine Besylate (Norvasc -) 5 mg PO DAILY [facility] Last Admin: 07/31/18 09:07 Dose: 5 mg Aspirin (Asa -) 81 mg PO DAILY [facility] Last Admin: 07/31/18 09:07 Dose: 81 mg Atorvastatin Calcium (Lipitor -) 20 mg PO HS [facility] Last Admin: 07/30/18 22:18 Dose: 20 mg Clopidogrel Bisulfate (Plavix -) 75 mg PO DAILY [facility] Last Admin: 07/31/18 09:07 Dose: 75 mg Gabapentin (Neurontin -) 300 mg PO TID [facility] Last Admin: 07/31/18 13:43 Dose: 300 mg Gentamicin Sulfate (Garamycin 0.1% Cream -) 1 applic TP BID [facility] Last Admin: 07/31/18 11:03 Dose: 1 applic HCTZ/Losartan Potassium (Hyzaar -) 1 tab PO DAILY [facility] Last Admin: 07/31/18 09:07 Dose: 1 tab Heparin Sodium (Porcine) (Heparin -) 5,000 unit SQ BID [facility] Last Admin: 07/31/18 09:06 Dose: 5,000 unit Piperacillin Sod/Tazobactam (Sod 3.375 gm/ Dextrose) 50 mls @ 100 mls/hr IVPB Q8H-IV [facility]; Protocol Last Admin: 07/31/18 09:07 Dose: 100 mls/hr Insulin Aspart (Novolog Vial Sliding Scale -) 1 vial SQ ACHS [facility]; Protocol Last Admin: 07/31/18 11:34 Dose: 6 unit Metoprolol Succinate (Toprol Xl -) 25 mg PO DAILY [facility] Last Admin: 07/31/18 09:07 Dose: 25 mg Oxycodone HCl (Roxicodone -) 5 mg PO Q6H PRN PRN Reason: PAIN LEVEL 6-10 Last Admin: 07/30/18 03:06 Dose: 5 mg - Objective Vital Signs: Vital Signs Temperature 98.8 F 07/31/18 09:00 Pulse Rate 92 H 07/31/18 09:00 Respiratory Rate 20 07/31/18 09:00 Blood Pressure 126/88 07/31/18 09:00 O2 Sat by Pulse Oximetry (%) 100 07/31/18 09:00 Constitutional: Yes: No Distress, Calm Cardiovascular: Yes: Regular Rate and Rhythm Respiratory: Yes: Regular, CTA Bilaterally Gastrointestinal: Yes: Normal Bowel Sounds, Soft Musculoskeletal: Yes: WNL Extremities: Yes: Other Wound/Incision: Yes: Dressing Dry and Intact Neurological: Yes: Alert, Oriented Psychiatric: Yes: Alert, Oriented Labs: CBC, BMP 07/31/18 06:00 07/31/18 06:00 INR, PTT INR 1.03 (0.83-1.09) 07/29/18 17:15 Assessment/Plan cellulitis of the left foot wound of left great toe wound infection pvd i think the wound is mrsa plan will change abx to vanco wound care rest as per the team patient stable
[2018-07-31] MEDS: VANCOMYCIN 1,250 MG in DEXTROSE 5%-WATER - 250 ML IVPB SCH (15:25)
--- NOTE | 2018-07-31 16:29 | PN ---
Progress Note, Physician - Current Medication List Current Medications: Active Medications Acetaminophen (Tylenol -) 325 mg PO Q6H PRN PRN Reason: PAIN LEVEL 6-10 Amlodipine Besylate (Norvasc -) 5 mg PO DAILY [facility] Last Admin: 07/31/18 09:07 Dose: 5 mg Aspirin (Asa -) 81 mg PO DAILY [facility] Last Admin: 07/31/18 09:07 Dose: 81 mg Atorvastatin Calcium (Lipitor -) 20 mg PO HS [facility] Last Admin: 07/30/18 22:18 Dose: 20 mg Clopidogrel Bisulfate (Plavix -) 75 mg PO DAILY [facility] Last Admin: 07/31/18 09:07 Dose: 75 mg Gabapentin (Neurontin -) 300 mg PO TID [facility] Last Admin: 07/31/18 13:43 Dose: 300 mg Gentamicin Sulfate (Garamycin 0.1% Cream -) 1 applic TP BID [facility] Last Admin: 07/31/18 11:03 Dose: 1 applic HCTZ/Losartan Potassium (Hyzaar -) 1 tab PO DAILY [facility] Last Admin: 07/31/18 09:07 Dose: 1 tab Heparin Sodium (Porcine) (Heparin -) 5,000 unit SQ BID [facility] Last Admin: 07/31/18 09:06 Dose: 5,000 unit Vancomycin HCl 1,250 mg/ (Dextrose) 250 mls @ 250 mls/2 hr IVPB DAILY@1500 [place] ; Protocol Last Admin: 07/31/18 15:25 Dose: 250 mls/2 hr Insulin Aspart (Novolog Vial Sliding Scale -) 1 vial SQ ACHS [facility]; Protocol Last Admin: 07/31/18 11:34 Dose: 6 unit Metoprolol Succinate (Toprol Xl -) 25 mg PO DAILY [facility] Last Admin: 07/31/18 09:07 Dose: 25 mg Oxycodone HCl (Roxicodone -) 5 mg PO Q6H PRN PRN Reason: PAIN LEVEL 6-10 Last Admin: 07/30/18 03:06 Dose: 5 mg - Objective Vital Signs: Vital Signs Temperature 98.0 F 07/31/18 14:24 Pulse Rate 100 H 07/31/18 14:24 Respiratory Rate 18 07/31/18 14:24 Blood Pressure 122/81 07/31/18 14:24 O2 Sat by Pulse Oximetry (%) 100 07/31/18 09:00 Labs: CBC, BMP 07/31/18 06:00 07/31/18 06:00 INR, PTT INR 1.03 (0.83-1.09) 07/29/18 17:15
[2018-07-31] MEDS ORDERED: INSULIN (NOVOLOG) ASPART 100 UNITS/ML 10ML VIAL ONE ×2 (18:26→21:05)
[2018-07-31] MEDS: ATORVASTATIN CA 20 MG TABLET (FP) PO SCH (21:06)
[2018-08-01] MEDS ORDERED: PT OWN MED DRAWER 7, Y5N ONE ×3 (06:13→13:35)
[2018-08-01] MEDS: GABAPENTIN 300 MG CAPSULE (FP) PO SCH ×3 (06:45→21:28)
[2018-08-01] MEDS: INSULIN SLIDING SCALE (NOVOLOG) 1 VIAL SQ SCH ×4 (06:45→21:28)
[2018-08-01 07:15] LABS: BASO % 0.4 % (0-2.0); EOS % 3.7 % (0-4.5); HEMATOCRIT 42.2 % (35.4-49); HEMOGLOBIN 13.8 GM/dL (11.7-16.9); LYMPH % 35.4 % (8-40); MCH 26.9 pg (25.7-33.7); MCHC 32.7 g/dl (32.0-35.9); MEAN CELL VOLUME 82.1 fl (80-96); MEAN PLT VOLUME 7.7 fl (7.5-11.1); MONO % 6.7 % (3.8-10.2); NEUT % 53.8 % (42.8-82.8); PLATELET COUNT 211 K/MM3 (134-434); RBC 5.14 M/mm3 (4.00-5.60); RDW 14.9 % (11.9-15.9); WHITE BLOOD COUNT 8.1 K/mm3 (4.0-10.0)
[2018-08-01 07:42] LABS: ALBUMIN 3.1 g/dl (3.4-5.0); ALK PHOS 216 U/L (45-117); ANION GAP 9 MMOL/L (8-16); BILIRUBIN,TOTAL 0.5 mg/dL (0.2-1); BLOOD UREA NITROGEN 12 mg/dL (7-18); CALCIUM 8.9 mg/dL (8.5-10.1); CHLORIDE 100 mmol/L (98-107); CO2 26 mmol/L (21-32); CREATININE 1.2 mg/dL (0.55-1.3); GLUCOSE,RANDOM 219 mg/dL (74-106); POTASSIUM 3.7 mmol/L (3.5-5.1); SGOT/AST 12 U/L (15-37); SGPT/ALT 17 U/L (13-61); SODIUM 136 mmol/L (136-145); TOT PROT 6.6 g/dl (6.4-8.2)
[2018-08-01] MEDS: LOSARTAN 50MG/HCTZ 12.5MG 1 TAB (FP) PO SCH (09:07)
[2018-08-01] MEDS: CLOPIDOGREL BISULFATE 75 MG TABLET (FP) PO SCH (09:07)
[2018-08-01] MEDS: amLODIPine BESYLATE 5 MG TABLET (FP) PO SCH (09:07)
[2018-08-01] MEDS: metoPROLOL SUCCINATE 25 MG TAB.SR.24H (FP) PO SCH (09:07)
[2018-08-01] MEDS: ASPIRIN 81 MG CHEWABLE TABLETS PO SCH (09:07)
[2018-08-01] MEDS: HEPARIN NA (PORCINE) 5,000 UNITS/ML 1ML VIAL SQ SCH ×2 (09:07→21:28)
[2018-08-01] MEDS: GENTAMICIN SO4 0.1% TOP CREAM 15 GM/TUBE TP SCH ×2 (09:08→21:32)
[2018-08-01] MEDS: VANCOMYCIN 1,250 MG in DEXTROSE 5%-WATER - 250 ML IVPB SCH (14:40)
--- NOTE | 2018-08-01 16:25 | PN ---
Progress Note, Physician History of Present Illness: stable no new issues - Current Medication List Current Medications: Active Medications Acetaminophen (Tylenol -) 325 mg PO Q6H PRN PRN Reason: PAIN LEVEL 6-10 Amlodipine Besylate (Norvasc -) 5 mg PO DAILY [facility] Last Admin: 08/01/18 09:07 Dose: 5 mg Aspirin (Asa -) 81 mg PO DAILY [facility] Last Admin: 08/01/18 09:07 Dose: 81 mg Atorvastatin Calcium (Lipitor -) 20 mg PO HS [facility] Last Admin: 07/31/18 21:06 Dose: 20 mg Clopidogrel Bisulfate (Plavix -) 75 mg PO DAILY [facility] Last Admin: 08/01/18 09:07 Dose: 75 mg Gabapentin (Neurontin -) 300 mg PO TID [facility] Last Admin: 08/01/18 13:44 Dose: 300 mg Gentamicin Sulfate (Garamycin 0.1% Cream -) 1 applic TP BID [facility] Last Admin: 08/01/18 09:08 Dose: 1 applic HCTZ/Losartan Potassium (Hyzaar -) 1 tab PO DAILY [facility] Last Admin: 08/01/18 09:07 Dose: 1 tab Heparin Sodium (Porcine) (Heparin -) 5,000 unit SQ BID [facility] Last Admin: 08/01/18 09:07 Dose: 5,000 unit Vancomycin HCl 1,250 mg/ (Dextrose) 250 mls @ 250 mls/2 hr IVPB DAILY@1500 [facility] ; Protocol Last Admin: 08/01/18 14:40 Dose: 250 mls/2 hr Insulin Aspart (Novolog Vial Sliding Scale -) 1 vial SQ ACHS [facility]; Protocol Last Admin: 08/01/18 11:40 Dose: 6 unit Metoprolol Succinate (Toprol Xl -) 25 mg PO DAILY [facility] Last Admin: 08/01/18 09:07 Dose: 25 mg Oxycodone HCl (Roxicodone -) 5 mg PO Q6H PRN PRN Reason: PAIN LEVEL 6-10 Last Admin: 07/30/18 03:06 Dose: 5 mg - Objective Vital Signs: Vital Signs Temperature 98.2 F 08/01/18 14:11 Pulse Rate 91 H 08/01/18 14:11 Respiratory Rate 18 08/01/18 14:11 Blood Pressure 105/64 08/01/18 14:11 O2 Sat by Pulse Oximetry (%) 100 08/01/18 09:00 Constitutional: Yes: No Distress, Calm Cardiovascular: Yes: Regular Rate and Rhythm Respiratory: Yes: Regular, CTA Bilaterally Gastrointestinal: Yes: Normal Bowel Sounds, Soft Musculoskeletal: Yes: WNL Extremities: Yes: WNL Wound/Incision: Yes: Dressing Dry and Intact Neurological: Yes: Alert, Oriented Psychiatric: Yes: Alert, Oriented Labs: CBC, BMP 08/01/18 06:00 08/01/18 06:00 INR, PTT INR 1.03 (0.83-1.09) 07/29/18 17:15 Assessment/Plan cellulitis of the left foot wound of left great toe wound infection pvd cx results noted plan will change to oral abx will check the wound tomorrow final decision to be made if patient needs mri patient doing well
[2018-08-01] MEDS: ATORVASTATIN CA 20 MG TABLET (FP) PO SCH (21:28)
--- NOTE | 2018-08-01 21:45 | PN ---
Progress Note, Physician History of Present Illness: No new complaints - Current Medication List Current Medications: Active Medications Acetaminophen (Tylenol -) 325 mg PO Q6H PRN PRN Reason: PAIN LEVEL 6-10 Amlodipine Besylate (Norvasc -) 5 mg PO DAILY [facility] Last Admin: 08/01/18 09:07 Dose: 5 mg Aspirin (Asa -) 81 mg PO DAILY [facility] Last Admin: 08/01/18 09:07 Dose: 81 mg Atorvastatin Calcium (Lipitor -) 20 mg PO HS [facility] Last Admin: 08/01/18 21:28 Dose: 20 mg Clopidogrel Bisulfate (Plavix -) 75 mg PO DAILY [facility] Last Admin: 08/01/18 09:07 Dose: 75 mg Gabapentin (Neurontin -) 300 mg PO TID [facility] Last Admin: 08/01/18 21:28 Dose: 300 mg Gentamicin Sulfate (Garamycin 0.1% Cream -) 1 applic TP BID [facility] Last Admin: 08/01/18 21:32 Dose: 1 applic HCTZ/Losartan Potassium (Hyzaar -) 1 tab PO DAILY [facility] Last Admin: 08/01/18 09:07 Dose: 1 tab Heparin Sodium (Porcine) (Heparin -) 5,000 unit SQ BID [facility] Last Admin: 08/01/18 21:28 Dose: 5,000 unit Vancomycin HCl 1,250 mg/ (Dextrose) 250 mls @ 250 mls/2 hr IVPB DAILY@1500 [place] ; Protocol Last Admin: 08/01/18 14:40 Dose: 250 mls/2 hr Insulin Aspart (Novolog Vial Sliding Scale -) 1 vial SQ ACHS [facility]; Protocol Last Admin: 08/01/18 21:28 Dose: 4 unit Metoprolol Succinate (Toprol Xl -) 25 mg PO DAILY [facility] Last Admin: 08/01/18 09:07 Dose: 25 mg Oxycodone HCl (Roxicodone -) 5 mg PO Q6H PRN PRN Reason: PAIN LEVEL 6-10 Last Admin: 07/30/18 03:06 Dose: 5 mg - Objective Vital Signs: Vital Signs Temperature 98.2 F 08/01/18 17:15 Pulse Rate 94 H 08/01/18 17:15 Respiratory Rate 20 08/01/18 17:15 Blood Pressure 127/83 08/01/18 17:15 O2 Sat by Pulse Oximetry (%) 100 08/01/18 09:00 Neck: Yes: WNL, Supple Cardiovascular: Yes: WNL, Regular Rate and Rhythm Respiratory: Yes: WNL, Regular, CTA Bilaterally Gastrointestinal: Yes: WNL, Normal Bowel Sounds, Soft Extremities: Yes: Other (Lt big toe w/ open blister ?dry gangrene) Labs: CBC, BMP 08/01/18 06:00 08/01/18 06:00 INR, PTT INR 1.03 (0.83-1.09) 07/29/18 17:15 Problem List - Problems (1) Cellulitis Assessment/Plan: Cont IV antibxs Cont wound care May need MRI reconsult vascular Code(s): L03.90 - CELLULITIS, UNSPECIFIED Qualifiers: Site of cellulitis of trunk: unspecified site (2) Diabetes Assessment/Plan: Cont sliding scale w/ coverage Code(s): E11.9 - TYPE 2 DIABETES MELLITUS WITHOUT COMPLICATIONS (3) HTN (hypertension) Assessment/Plan: Bp stable Cont asa/norvasc/losartan/hctz/toprol Code(s): I10 - ESSENTIAL (PRIMARY) HYPERTENSION (4) HLD (hyperlipidemia) Assessment/Plan: Cont lipitor Code(s): E78.5 - HYPERLIPIDEMIA, UNSPECIFIED (5) Diabetic neuropathy Assessment/Plan: Cont neurotin Code(s): E11.40 - TYPE 2 DIABETES MELLITUS WITH DIABETIC NEUROPATHY, UNSP (6) PVD (peripheral vascular disease) Code(s): I73.9 - PERIPHERAL VASCULAR DISEASE, UNSPECIFIED (7) Obesity Code(s): E66.9 - OBESITY, UNSPECIFIED (8) CAD (coronary artery disease) Assessment/Plan: Cont plavix Code(s): I25.10 - ATHSCL HEART DISEASE OF [place] CORONARY ARTERY W/O ANG PCTRS
[2018-08-02] MEDS: GABAPENTIN 300 MG CAPSULE (FP) PO SCH ×3 (06:39→21:05)
[2018-08-02] MEDS: INSULIN SLIDING SCALE (NOVOLOG) 1 VIAL SQ SCH ×4 (06:53→21:08)
[2018-08-02] MEDS: HEPARIN NA (PORCINE) 5,000 UNITS/ML 1ML VIAL SQ SCH ×2 (10:08→21:05)
[2018-08-02] MEDS: metoPROLOL SUCCINATE 25 MG TAB.SR.24H (FP) PO SCH (10:08)
[2018-08-02] MEDS: CLOPIDOGREL BISULFATE 75 MG TABLET (FP) PO SCH (10:08)
[2018-08-02] MEDS: amLODIPine BESYLATE 5 MG TABLET (FP) PO SCH (10:08)
[2018-08-02] MEDS: LOSARTAN 50MG/HCTZ 12.5MG 1 TAB (FP) PO SCH (10:08)
[2018-08-02] MEDS: ASPIRIN 81 MG CHEWABLE TABLETS PO SCH (10:08)
[2018-08-02] MEDS ORDERED: INSULIN (NOVOLOG) ASPART 100 UNITS/ML 10ML VIAL ONE ×2 (11:04→20:57)
[2018-08-02] MEDS: GENTAMICIN SO4 0.1% TOP CREAM 15 GM/TUBE TP SCH ×2 (11:07→21:05)
--- NOTE | 2018-08-02 11:13 | PN ---
Progress Note (short form) - Note Progress Note: 48yo M h/o Left toe wound, pt was seen and examined at bedside. Pt states that he continues to have left calf pain while sitting, that has gotten progressively worse over the weeks. Pt denies any numbness in his foot. Pt having daily dressing changes with gentamycin. Last Vital Signs Temp Pulse Resp BP Pulse Ox 98.8 F 97 H 20 111/82 100 08/02/18 07:44 08/02/18 07:44 08/02/18 07:44 08/02/18 07:44 08/01/18 21:00 CBC, BMP 08/01/18 06:00 08/01/18 06:00 PE Gen: A&O x 3 Resp: breathing comfortably Ext: LLE shows 2 cm ulceration on medial aspect Left great toe, some dry necrotic tissue at plantar aspect 2nd toe. Dopplarable PT and DP pulses. <John Dietz - Last Filed: 08/02/18 12:25> - Note Progress Note: History reviewed and patient examined. Left foot pain and blisters on toes. Duplex shows occlusion of left SFA stent. Will need angiogram to attempt reopening of stent. Schedule for 08/04 <Tate Sorensen - Last Filed: 08/03/18 08:33> Problem List - Problems (1) PAD (peripheral artery disease) Assessment/Plan: Plan -continue daily dressing changes -will order arterial duplex to evaluate flow in LLE -abx as per medicine/ID -continue asa/plavix Code(s): I73.9 - PERIPHERAL VASCULAR DISEASE, UNSPECIFIED <John Dietz - Last Filed: 08/02/18 12:25>
--- NOTE | 2018-08-02 13:50 | PN ---
Progress Note, Physician History of Present Illness: stable no issues wound stable - Current Medication List Current Medications: Active Medications Acetaminophen (Tylenol -) 325 mg PO Q6H PRN PRN Reason: PAIN LEVEL 6-10 Amlodipine Besylate (Norvasc -) 5 mg PO DAILY [facility] Last Admin: 08/02/18 10:08 Dose: 5 mg Aspirin (Asa -) 81 mg PO DAILY [facility] Last Admin: 08/02/18 10:08 Dose: 81 mg Atorvastatin Calcium (Lipitor -) 20 mg PO HS [facility] Last Admin: 08/01/18 21:28 Dose: 20 mg Clopidogrel Bisulfate (Plavix -) 75 mg PO DAILY [facility] Last Admin: 08/02/18 10:08 Dose: 75 mg Gabapentin (Neurontin -) 300 mg PO TID [facility] Last Admin: 08/02/18 06:39 Dose: 300 mg Gentamicin Sulfate (Garamycin 0.1% Cream -) 1 applic TP BID [facility] Last Admin: 08/02/18 11:07 Dose: 1 applic HCTZ/Losartan Potassium (Hyzaar -) 1 tab PO DAILY [facility] Last Admin: 08/02/18 10:08 Dose: 1 tab Heparin Sodium (Porcine) (Heparin -) 5,000 unit SQ BID [facility] Last Admin: 08/02/18 10:08 Dose: 5,000 unit Vancomycin HCl 1,250 mg/ (Dextrose) 250 mls @ 250 mls/2 hr IVPB DAILY@1500 [facility] ; Protocol Last Admin: 08/01/18 14:40 Dose: 250 mls/2 hr Insulin Aspart (Novolog Vial Sliding Scale -) 1 vial SQ ACHS [facility]; Protocol Last Admin: 08/02/18 11:08 Dose: 6 unit Metoprolol Succinate (Toprol Xl -) 25 mg PO DAILY [facility] Last Admin: 08/02/18 10:08 Dose: 25 mg - Objective Vital Signs: Vital Signs Temperature 98.4 F 08/02/18 10:00 Pulse Rate 95 H 08/02/18 10:00 Respiratory Rate 18 08/02/18 10:00 Blood Pressure 125/55 L 08/02/18 10:00 O2 Sat by Pulse Oximetry (%) 100 08/01/18 21:00 Constitutional: Yes: No Distress, Calm Cardiovascular: Yes: Regular Rate and Rhythm Respiratory: Yes: Regular, CTA Bilaterally Gastrointestinal: Yes: Normal Bowel Sounds, Soft Musculoskeletal: Yes: WNL Extremities: Yes: WNL Wound/Incision: Yes: Dressing Dry and Intact Neurological: Yes: Alert, Oriented Psychiatric: Yes: Alert, Oriented Labs: CBC, BMP 08/01/18 06:00 08/01/18 06:00 INR, PTT INR 1.03 (0.83-1.09) 07/29/18 17:15 Assessment/Plan cellulitis of the left foot wound of left great toe wound infection pvd cx results noted plan will change to oral abx wound care rest as per the team stable
[2018-08-02] MEDS ORDERED: PT OWN MED DRAWER 7, Y5N ONE (16:42)
[2018-08-02] MEDS: AMOX TR/POT CLAV 875MG/125MG TABLETS (FP) PO SCH (18:31)
--- NOTE | 2018-08-02 18:46 | PN ---
Progress Note, Physician History of Present Illness: No new complaints - Current Medication List Current Medications: Active Medications Acetaminophen (Tylenol -) 325 mg PO Q6H PRN PRN Reason: PAIN LEVEL 6-10 Amlodipine Besylate (Norvasc -) 5 mg PO DAILY [facility] Last Admin: 08/02/18 10:08 Dose: 5 mg Amoxicillin/Clavulanate Potassium (Augmentin - 875mg Tablet) 1 tab PO BID@0800, 1730 [facility] Last Admin: 08/02/18 18:31 Dose: 1 tab Aspirin (Asa -) 81 mg PO DAILY [facility] Last Admin: 08/02/18 10:08 Dose: 81 mg Atorvastatin Calcium (Lipitor -) 20 mg PO HS [facility] Last Admin: 08/01/18 21:28 Dose: 20 mg Clopidogrel Bisulfate (Plavix -) 75 mg PO DAILY [facility] Last Admin: 08/02/18 10:08 Dose: 75 mg Gabapentin (Neurontin -) 300 mg PO TID [facility] Last Admin: 08/02/18 16:27 Dose: 300 mg Gentamicin Sulfate (Garamycin 0.1% Cream -) 1 applic TP BID [facility] Last Admin: 08/02/18 11:07 Dose: 1 applic HCTZ/Losartan Potassium (Hyzaar -) 1 tab PO DAILY [facility] Last Admin: 08/02/18 10:08 Dose: 1 tab Heparin Sodium (Porcine) (Heparin -) 5,000 unit SQ BID [facility] Last Admin: 08/02/18 10:08 Dose: 5,000 unit Insulin Aspart (Novolog Vial Sliding Scale -) 1 vial SQ [facility]; Protocol Last Admin: 08/02/18 16:31 Dose: 4 unit Metoprolol Succinate (Toprol Xl -) 25 mg PO DAILY [facility] Last Admin: 08/02/18 10:08 Dose: 25 mg - Objective Vital Signs: Vital Signs Temperature 98.3 F 08/02/18 16:20 Pulse Rate 95 H 08/02/18 16:20 Respiratory Rate 20 08/02/18 16:20 Blood Pressure 124/70 08/02/18 16:20 O2 Sat by Pulse Oximetry (%) 100 08/02/18 09:00 Neck: Yes: WNL, Supple Cardiovascular: Yes: WNL, Regular Rate and Rhythm Respiratory: Yes: WNL, Regular, CTA Bilaterally Gastrointestinal: Yes: WNL, Normal Bowel Sounds, Soft Extremities: Yes: Other ((+) dry blister lt big toe) Labs: CBC, BMP 08/01/18 06:00 08/01/18 06:00 INR, PTT INR 1.03 (0.83-1.09) 07/29/18 17:15 Problem List - Problems (1) Cellulitis Assessment/Plan: Cont IV antibxs Cont wound care Duplex of RLE pending Will await vasc surg recommendations Code(s): L03.90 - CELLULITIS, UNSPECIFIED Qualifiers: Site of cellulitis of trunk: unspecified site (2) Diabetes Assessment/Plan: Cont sliding scale w/ coverage Code(s): E11.9 - TYPE 2 DIABETES MELLITUS WITHOUT COMPLICATIONS (3) HTN (hypertension) Code(s): I10 - ESSENTIAL (PRIMARY) HYPERTENSION (4) HLD (hyperlipidemia) Code(s): E78.5 - HYPERLIPIDEMIA, UNSPECIFIED (5) Diabetic neuropathy Code(s): E11.40 - TYPE 2 DIABETES MELLITUS WITH DIABETIC NEUROPATHY, UNSP (6) PVD (peripheral vascular disease) Code(s): I73.9 - PERIPHERAL VASCULAR DISEASE, UNSPECIFIED (7) Obesity Code(s): E66.9 - OBESITY, UNSPECIFIED (8) CAD (coronary artery disease) Code(s): I25.10 - ATHSCL HEART DISEASE OF [place] CORONARY ARTERY W/O ANG PCTRS
[2018-08-02] MEDS: ATORVASTATIN CA 20 MG TABLET (FP) PO SCH (21:05)
[2018-08-03] MEDS: GABAPENTIN 300 MG CAPSULE (FP) PO SCH ×3 (05:46→21:15)
[2018-08-03] MEDS: INSULIN SLIDING SCALE (NOVOLOG) 1 VIAL SQ SCH ×4 (06:11→21:20)
--- NOTE | 2018-08-03 08:36 | PN ---
Progress Note, Physician History of Present Illness: stable no issues wound stable - Current Medication List Current Medications: Active Medications Acetaminophen (Tylenol -) 325 mg PO Q6H PRN PRN Reason: PAIN LEVEL 6-10 Amlodipine Besylate (Norvasc -) 5 mg PO DAILY [facility] Last Admin: 08/02/18 10:08 Dose: 5 mg Amoxicillin/Clavulanate Potassium (Augmentin - 875mg Tablet) 1 tab PO BID@0800, 1730 [facility] Last Admin: 08/02/18 18:31 Dose: 1 tab Aspirin (Asa -) 81 mg PO DAILY [facility] Last Admin: 08/02/18 10:08 Dose: 81 mg Atorvastatin Calcium (Lipitor -) 20 mg PO HS [facility] Last Admin: 08/02/18 21:05 Dose: 20 mg Clopidogrel Bisulfate (Plavix -) 75 mg PO DAILY [facility] Last Admin: 08/02/18 10:08 Dose: 75 mg Gabapentin (Neurontin -) 300 mg PO TID [facility] Last Admin: 08/03/18 05:46 Dose: 300 mg Gentamicin Sulfate (Garamycin 0.1% Cream -) 1 applic TP BID [facility] Last Admin: 08/02/18 21:05 Dose: 1 applic HCTZ/Losartan Potassium (Hyzaar -) 1 tab PO DAILY [facility] Last Admin: 08/02/18 10:08 Dose: 1 tab Heparin Sodium (Porcine) (Heparin -) 5,000 unit SQ BID [facility] Last Admin: 08/02/18 21:05 Dose: 5,000 unit Insulin Aspart (Novolog Vial Sliding Scale -) 1 vial SQ [facility]; Protocol Last Admin: 08/03/18 06:11 Dose: 4 unit Metoprolol Succinate (Toprol Xl -) 25 mg PO DAILY [facility] Last Admin: 08/02/18 10:08 Dose: 25 mg - Objective Vital Signs: Vital Signs Temperature 98.5 F 08/03/18 05:53 Pulse Rate 94 H 08/03/18 05:53 Respiratory Rate 20 08/03/18 05:53 Blood Pressure 111/73 08/03/18 05:53 O2 Sat by Pulse Oximetry (%) 98 08/02/18 21:00 Constitutional: Yes: No Distress, Calm Cardiovascular: Yes: Regular Rate and Rhythm Respiratory: Yes: Regular, CTA Bilaterally Gastrointestinal: Yes: Normal Bowel Sounds, Soft Musculoskeletal: Yes: Other Wound/Incision: Yes: Clean/Dry Neurological: Yes: Alert, Oriented Psychiatric: Yes: Alert, Oriented Labs: CBC, BMP 08/01/18 06:00 08/01/18 06:00 INR, PTT INR 1.03 (0.83-1.09) 07/29/18 17:15 Assessment/Plan cellulitis of the left foot wound of left great toe wound infection pvd cx results noted plan continue oral abx wound care rest as per the team stable
[2018-08-03] MEDS ORDERED: PT OWN MED DRAWER 7, Y5N ONE (09:19)
[2018-08-03] MEDS: AMOX TR/POT CLAV 875MG/125MG TABLETS (FP) PO SCH ×2 (10:00→17:12)
[2018-08-03] MEDS: HEPARIN NA (PORCINE) 5,000 UNITS/ML 1ML VIAL SQ SCH ×2 (10:46→21:12)
[2018-08-03] MEDS: ASPIRIN 81 MG CHEWABLE TABLETS PO SCH (10:46)
[2018-08-03] MEDS: GENTAMICIN SO4 0.1% TOP CREAM 15 GM/TUBE TP SCH ×2 (10:46→21:46)
[2018-08-03] MEDS: CLOPIDOGREL BISULFATE 75 MG TABLET (FP) PO SCH (10:47)
[2018-08-03] MEDS: LOSARTAN 50MG/HCTZ 12.5MG 1 TAB (FP) PO SCH (10:47)
[2018-08-03] MEDS: amLODIPine BESYLATE 5 MG TABLET (FP) PO SCH (10:47)
[2018-08-03] MEDS: metoPROLOL SUCCINATE 25 MG TAB.SR.24H (FP) PO SCH (10:48)
--- NOTE | 2018-08-03 12:23 | SPA.PREOP ---
- PRE-OP NOTE Dx: left foot ulcer/claudication Planned Procedure: angiogram of the left lower extremity Surgeon:Dr. Sorensen Last Vital Signs Temp Pulse Resp BP Pulse Ox 97.7 F 106 H 18 107/71 98 08/03/18 10:19 08/03/18 10:19 08/03/18 10:19 08/03/18 10:19 08/03/18 09:00 Lab Results WBC 8.1 K/mm3 (4.0-10.0) 08/01/18 06:00 RBC 5.14 M/mm3 (4.00-5.60) 08/01/18 06:00 Hgb 13.8 GM/dL (11.7-16.9) 08/01/18 06:00 Hct 42.2 % (35.4-49) 08/01/18 06:00 MCV 82.1 fl (80-96) 08/01/18 06:00 MCHC 32.7 g/dl (32.0-35.9) 08/01/18 06:00 RDW 14.9 % (11.9-15.9) 08/01/18 06:00 Plt Count 211 K/MM3 (134-434) 08/01/18 06:00 Sodium 136 mmol/L (136-145) 08/01/18 06:00 Potassium 3.7 mmol/L (3.5-5.1) 08/01/18 06:00 Chloride 100 mmol/L (98-107) 08/01/18 06:00 Carbon Dioxide 26 mmol/L (21-32) 08/01/18 06:00 Anion Gap 9 MMOL/L (8-16) 08/01/18 06:00 BUN 12 mg/dL (7-18) 08/01/18 06:00 Creatinine 1.2 mg/dL (0.55-1.3) 08/01/18 06:00 Random Glucose 219 mg/dL (74-106) H 08/01/18 06:00 Calcium 8.9 mg/dL (8.5-10.1) 08/01/18 06:00 INR 1.03 (0.83-1.09) 07/29/18 17:15 - IMAGING Other: Other (arterial duplex: occluded distal SFA with flow in the popliteal artery. Infrapopliteal flown seen in the proximal [employer].) - ASSESSMENT/PLAN 1. Make NPO after breakfast except po meds 2. GI/DVT PPX 3. Medical optimization / clearance Problem List - Problems (1) Blister Code(s): T14.8XXA - OTHER INJURY OF UNSPECIFIED BODY REGION, INITIAL ENCOUNTER
[2018-08-03] MEDS ORDERED: INSULIN (NOVOLOG) ASPART 100 UNITS/ML 10ML VIAL ONE (17:02)
--- NOTE | 2018-08-03 18:37 | PN ---
Progress Note, Physician History of Present Illness: No new complaints - Current Medication List Current Medications: Active Medications Acetaminophen (Tylenol -) 325 mg PO Q6H PRN PRN Reason: PAIN LEVEL 6-10 Amlodipine Besylate (Norvasc -) 5 mg PO DAILY [facility] Last Admin: 08/03/18 10:47 Dose: 5 mg Amoxicillin/Clavulanate Potassium (Augmentin - 875mg Tablet) 1 tab PO BID@0800, 1730 [facility] Last Admin: 08/03/18 17:12 Dose: 1 tab Aspirin (Asa -) 81 mg PO DAILY [facility] Last Admin: 08/03/18 10:46 Dose: 81 mg Atorvastatin Calcium (Lipitor -) 20 mg PO HS [facility] Last Admin: 08/02/18 21:05 Dose: 20 mg Clopidogrel Bisulfate (Plavix -) 75 mg PO DAILY [facility] Last Admin: 08/03/18 10:47 Dose: 75 mg Gabapentin (Neurontin -) 300 mg PO TID [facility] Last Admin: 08/03/18 13:55 Dose: 300 mg Gentamicin Sulfate (Garamycin 0.1% Cream -) 1 applic TP BID [facility] Last Admin: 08/03/18 10:46 Dose: 1 applic HCTZ/Losartan Potassium (Hyzaar -) 1 tab PO DAILY [facility] Last Admin: 08/03/18 10:47 Dose: 1 tab Heparin Sodium (Porcine) (Heparin -) 5,000 unit SQ BID [facility] Last Admin: 08/03/18 10:46 Dose: 5,000 unit Sodium Chloride (1/2 Normal Saline) 1,000 mls @ 75 mls/hr IV ASDIR [facility] Insulin Aspart (Novolog Vial Sliding Scale -) 1 vial SQ ACHS [facility]; Protocol Last Admin: 08/03/18 17:12 Dose: 2 unit Metoprolol Succinate (Toprol Xl -) 25 mg PO DAILY [facility] Last Admin: 08/03/18 10:48 Dose: 25 mg - Objective Vital Signs: Vital Signs Temperature 98.3 F 08/03/18 15:09 Pulse Rate 92 H 08/03/18 15:09 Respiratory Rate 18 08/03/18 15:09 Blood Pressure 110/70 08/03/18 15:09 O2 Sat by Pulse Oximetry (%) 98 08/03/18 09:00 Constitutional: Yes: Well Nourished Neck: Yes: WNL, Supple Cardiovascular: Yes: WNL, Regular Rate and Rhythm Respiratory: Yes: WNL, Regular, CTA Bilaterally Gastrointestinal: Yes: WNL, Normal Bowel Sounds, Soft Extremities: Yes: Other (Lt big toe w/ blister and discoloration) Labs: CBC, BMP 08/01/18 06:00 08/01/18 06:00 INR, PTT INR 1.03 (0.83-1.09) 07/29/18 17:15 Problem List - Problems (1) Cellulitis Assessment/Plan: Cont IV antibxs Cont wound care Duplex of RLE occluded SFA Pt for angiogram in am Code(s): L03.90 - CELLULITIS, UNSPECIFIED Qualifiers: Site of cellulitis of trunk: unspecified site (2) Diabetes Assessment/Plan: Cont sliding scale w/ coverage Code(s): E11.9 - TYPE 2 DIABETES MELLITUS WITHOUT COMPLICATIONS (3) HTN (hypertension) Assessment/Plan: Bp stable Cont asa/norvasc/losartan/hctz/toprol Code(s): I10 - ESSENTIAL (PRIMARY) HYPERTENSION (4) HLD (hyperlipidemia) Assessment/Plan: Cont lipitor Code(s): E78.5 - HYPERLIPIDEMIA, UNSPECIFIED (5) Diabetic neuropathy Assessment/Plan: Cont neurotin Code(s): E11.40 - TYPE 2 DIABETES MELLITUS WITH DIABETIC NEUROPATHY, UNSP (6) PVD (peripheral vascular disease) Code(s): I73.9 - PERIPHERAL VASCULAR DISEASE, UNSPECIFIED (7) Obesity Code(s): E66.9 - OBESITY, UNSPECIFIED (8) CAD (coronary artery disease) Code(s): I25.10 - ATHSCL HEART DISEASE OF [place] CORONARY ARTERY W/O ANG PCTRS
[2018-08-03] MEDS: ATORVASTATIN CA 20 MG TABLET (FP) PO SCH (21:16)
[2018-08-04] MEDS ORDERED: SODIUM CHLORIDE 0.45% 1,000 ML IV SCH
[2018-08-04] MEDS ORDERED: INSULIN (NOVOLOG) ASPART 100 UNITS/ML 10ML VIAL ONE (05:13)
[2018-08-04] MEDS: GABAPENTIN 300 MG CAPSULE (FP) PO SCH ×3 (05:19→21:41)
[2018-08-04] MEDS: INSULIN SLIDING SCALE (NOVOLOG) 1 VIAL SQ SCH ×4 (06:17→22:02)
[2018-08-04 08:00] LABS: BASO % 0.5 % (0-2.0); HEMATOCRIT 41.1 % (35.4-49); HEMOGLOBIN 13.4 GM/dL (11.7-16.9); LYMPH % 33.3 % (8-40); MCH 26.5 pg (25.7-33.7); MCHC 32.6 g/dl (32.0-35.9); MEAN CELL VOLUME 81.5 fl (80-96); MEAN PLT VOLUME 8.2 fl (7.5-11.1); MONO % 6.9 % (3.8-10.2); NEUT % 56.3 % (42.8-82.8); PLATELET COUNT 225 K/MM3 (134-434); RBC 5.04 M/mm3 (4.00-5.60); RDW 14.9 % (11.9-15.9)
[2018-08-04 08:57] LABS: ALK PHOS 200 U/L (45-117); ANION GAP 11 MMOL/L (8-16); BILIRUBIN,TOTAL 0.4 mg/dL (0.2-1); BLOOD UREA NITROGEN 18 mg/dL (7-18); CALCIUM 8.2 mg/dL (8.5-10.1); CHLORIDE 100 mmol/L (98-107); CO2 25 mmol/L (21-32); CREATININE 1.2 mg/dL (0.55-1.3); GLUCOSE,RANDOM 254 mg/dL (74-106); POTASSIUM 3.6 mmol/L (3.5-5.1); SGOT/AST 11 U/L (15-37); SGPT/ALT 24 U/L (13-61); SODIUM 136 mmol/L (136-145); TOT PROT 6.1 g/dl (6.4-8.2)
--- NOTE | 2018-08-04 09:44 | PN ---
Progress Note, Physician History of Present Illness: stable no new issues patient for mra angio - Current Medication List Current Medications: Active Medications Acetaminophen (Tylenol -) 325 mg PO Q6H PRN PRN Reason: PAIN LEVEL 6-10 Amlodipine Besylate (Norvasc -) 5 mg PO DAILY [facility] Last Admin: 08/03/18 10:47 Dose: 5 mg Amoxicillin/Clavulanate Potassium (Augmentin - 875mg Tablet) 1 tab PO BID@0800, 1730 [facility] Last Admin: 08/03/18 17:12 Dose: 1 tab Aspirin (Asa -) 81 mg PO DAILY [facility] Last Admin: 08/03/18 10:46 Dose: 81 mg Atorvastatin Calcium (Lipitor -) 20 mg PO HS [facility] Last Admin: 08/03/18 21:16 Dose: 20 mg Clopidogrel Bisulfate (Plavix -) 75 mg PO DAILY [facility] Last Admin: 08/03/18 10:47 Dose: 75 mg Gabapentin (Neurontin -) 300 mg PO TID [facility] Last Admin: 08/04/18 05:19 Dose: 300 mg Gentamicin Sulfate (Garamycin 0.1% Cream -) 1 applic TP BID [facility] Last Admin: 08/03/18 21:46 Dose: 1 applic HCTZ/Losartan Potassium (Hyzaar -) 1 tab PO DAILY [facility] Last Admin: 08/03/18 10:47 Dose: 1 tab Heparin Sodium (Porcine) (Heparin -) 5,000 unit SQ BID [facility] Last Admin: 08/03/18 21:12 Dose: 5,000 unit Sodium Chloride (1/2 Normal Saline) 1,000 mls @ 75 mls/hr IV ASDIR [facility] Last Admin: 08/04/18 07:15 Dose: 75 mls/hr Insulin Aspart (Novolog Vial Sliding Scale -) 1 vial SQ ACHS [facility]; Protocol Last Admin: 08/04/18 06:17 Dose: 4 unit Metoprolol Succinate (Toprol Xl -) 25 mg PO DAILY [facility] Last Admin: 08/03/18 10:48 Dose: 25 mg - Objective Vital Signs: Vital Signs Temperature 97.8 F 08/04/18 06:00 Pulse Rate 91 H 08/04/18 06:00 Respiratory Rate 20 08/04/18 06:00 Blood Pressure 94/54 L 08/04/18 06:00 O2 Sat by Pulse Oximetry (%) 98 08/03/18 21:00 Constitutional: Yes: No Distress, Calm Eyes: Yes: Conjunctiva Clear Cardiovascular: Yes: Regular Rate and Rhythm Respiratory: Yes: Regular, CTA Bilaterally Gastrointestinal: Yes: Normal Bowel Sounds, Soft Musculoskeletal: Yes: WNL Extremities: Yes: Other Neurological: Yes: Alert, Oriented Psychiatric: Yes: Alert, Oriented Labs: CBC, BMP 08/04/18 06:30 08/04/18 06:30 INR, PTT INR 1.03 (0.83-1.09) 07/29/18 17:15 Assessment/Plan cellulitis of the left foot wound of left great toe wound infection pvd cx results noted plan continue oral abx wound care rest as per the team stable await for mra angio of the foot
[2018-08-04] MEDS: LOSARTAN 50MG/HCTZ 12.5MG 1 TAB (FP) PO SCH (09:53)
[2018-08-04] MEDS: HEPARIN NA (PORCINE) 5,000 UNITS/ML 1ML VIAL SQ SCH ×2 (09:53→21:41)
[2018-08-04] MEDS: CLOPIDOGREL BISULFATE 75 MG TABLET (FP) PO SCH (09:53)
[2018-08-04] MEDS: amLODIPine BESYLATE 5 MG TABLET (FP) PO SCH (09:53)
[2018-08-04] MEDS: ASPIRIN 81 MG CHEWABLE TABLETS PO SCH (09:53)
[2018-08-04] MEDS: AMOX TR/POT CLAV 875MG/125MG TABLETS (FP) PO SCH ×3 (09:53→20:10)
[2018-08-04] MEDS: metoPROLOL SUCCINATE 25 MG TAB.SR.24H (FP) PO SCH (09:53)
[2018-08-04] MEDS: GENTAMICIN SO4 0.1% TOP CREAM 15 GM/TUBE TP SCH ×2 (09:56→21:49)
[2018-08-04] MEDS ORDERED: HEPARIN NA (PORCINE) 5,000 UNITS/ML 1ML VIAL ONE (14:56)
[2018-08-04] MEDS ORDERED: ONDANSETRON 4 MG/2 ML VIAL IVPUSH PRN ×2 (15:56→18:16)
[2018-08-04] MEDS ORDERED: LACTATED RINGERS SOLUTION 1,000 ML IV SCH (16:00)
[2018-08-04] MEDS ORDERED: MIDAZOLAM HCL 2 MG/2 ML SINGLE DOSE VIAL ONE (16:10)
[2018-08-04] MEDS ORDERED: LIDOCAINE HCL 1%, 10 MG/ML (20ML VIAL) PNB ONE (16:35)
[2018-08-04] MEDS ORDERED: HEPARIN NA (PORCINE) 5,000 UNITS/ML 1ML VIAL SQ ONE (16:37)
[2018-08-04] MEDS ORDERED: ePHEDrine SULFATE 50 MG/1 ML AMPULE ONE (16:49)
--- NOTE | 2018-08-04 17:45 | OP ---
Operative Note - Note: Operative Date: 08/04/18 Pre-Operative Diagnosis: Left femoral artery occlusion Operation: Left leg angiogram Findings: Occlusion of mid SFA left leg with reconstitution of popliteal artery. PT and peroneal runoff Post-Operative Diagnosis: Same as Pre-op Surgeon: Tate Sorensen Anesthesiologist/CHANGE MANAGEMENT LEAD: Isabel Gupta Anesthesia: Fractional
[2018-08-04] MEDS ORDERED: ACETAMINOPHEN 325 MG TABLET (FP) PO PRN (18:16)
[2018-08-04] MEDS: ATORVASTATIN CA 20 MG TABLET (FP) PO SCH (21:41)
--- NOTE | 2018-08-04 23:33 | PN ---
Progress Note, Physician - Current Medication List Current Medications: Active Medications Acetaminophen (Tylenol -) 325 mg PO Q6H PRN PRN Reason: PAIN LEVEL 6-10 Amlodipine Besylate (Norvasc -) 5 mg PO DAILY [facility] Amoxicillin/Clavulanate Potassium (Augmentin - 875mg Tablet) 1 tab PO BID@0800, 1730 [facility] Last Admin: 08/04/18 20:10 Dose: 1 tab Aspirin (Asa -) 81 mg PO DAILY [facility] Atorvastatin Calcium (Lipitor -) 20 mg PO HS [facility] Last Admin: 08/04/18 21:41 Dose: 20 mg Clopidogrel Bisulfate (Plavix -) 75 mg PO DAILY [facility] Fentanyl (Sublimaze Injection -) 50 mcg IVPUSH [id number] PRN PRN Reason: PAIN-PACU ORDER X 4 DOSES ONLY Stop: 08/05/18 03:00 Gabapentin (Neurontin -) 300 mg PO TID [facility] Last Admin: 08/04/18 21:41 Dose: 300 mg Gentamicin Sulfate (Garamycin 0.1% Cream -) 1 applic TP BID [facility] Last Admin: 08/04/18 21:49 Dose: 1 applic HCTZ/Losartan Potassium (Hyzaar -) 1 tab PO DAILY [facility] Heparin Sodium (Porcine) (Heparin -) 5,000 unit SQ BID [facility] Last Admin: 08/04/18 21:41 Dose: 5,000 unit Lactated Ringer's (Lactated Ringers Solution) 1,000 mls @ 125 mls/hr IV ASDIR [facility] Sodium Chloride (1/2 Normal Saline) 1,000 mls @ 75 mls/hr IV ASDIR [facility] Insulin Aspart (Novolog Vial Sliding Scale -) 1 vial SQ ACHS [facility]; Protocol Last Admin: 08/04/18 22:02 Dose: 6 units Metoprolol Succinate (Toprol Xl -) 25 mg PO DAILY [facility] Ondansetron HCl (Zofran Injection) 4 mg IVPUSH Q6H PRN PRN Reason: NAUSEA AND/OR VOMITING Stop: 08/05/18 03:00 - Objective Vital Signs: Vital Signs Temperature 98 F 08/04/18 19:50 Pulse Rate 92 H 08/04/18 20:26 Respiratory Rate 18 08/04/18 20:26 Blood Pressure 92/58 L 08/04/18 20:26 O2 Sat by Pulse Oximetry (%) 98 08/04/18 21:00 Labs: CBC, BMP 08/04/18 06:30 08/04/18 06:30 INR, PTT INR 1.03 (0.83-1.09) 07/29/18 17:15 Problem List - Problems (1) Cellulitis Code(s): L03.90 - CELLULITIS, UNSPECIFIED Qualifiers: Site of cellulitis of trunk: unspecified site (2) Diabetes Code(s): E11.9 - TYPE 2 DIABETES MELLITUS WITHOUT COMPLICATIONS (3) HTN (hypertension) Code(s): I10 - ESSENTIAL (PRIMARY) HYPERTENSION (4) HLD (hyperlipidemia) Code(s): E78.5 - HYPERLIPIDEMIA, UNSPECIFIED (5) Diabetic neuropathy Code(s): E11.40 - TYPE 2 DIABETES MELLITUS WITH DIABETIC NEUROPATHY, UNSP (6) PVD (peripheral vascular disease) Code(s): I73.9 - PERIPHERAL VASCULAR DISEASE, UNSPECIFIED (7) Obesity Code(s): E66.9 - OBESITY, UNSPECIFIED (8) CAD (coronary artery disease) Code(s): I25.10 - ATHSCL HEART DISEASE OF [place] CORONARY ARTERY W/O ANG PCTRS
[2018-08-05] MEDS: INSULIN SLIDING SCALE (NOVOLOG) 1 VIAL SQ SCH ×4 (06:48→22:07)
[2018-08-05] MEDS: GABAPENTIN 300 MG CAPSULE (FP) PO SCH ×3 (06:48→22:03)
[2018-08-05] MEDS ORDERED: INSULIN (NOVOLOG) ASPART 100 UNITS/ML 10ML VIAL ONE ×3 (06:55→22:06)
[2018-08-05] MEDS ORDERED: INSULIN (LEVEMIR) 100 UNITS/ML UNITS SQ ONE (06:55)
[2018-08-05 07:52] LABS: ANION GAP 7 MMOL/L (8-16); BLOOD UREA NITROGEN 16 mg/dL (7-18); CALCIUM 8.4 mg/dL (8.5-10.1); CHLORIDE 102 mmol/L (98-107); CO2 27 mmol/L (21-32); CREATININE 1.2 mg/dL (0.55-1.3); GLUCOSE,RANDOM 218 mg/dL (74-106); POTASSIUM 3.9 mmol/L (3.5-5.1); SODIUM 136 mmol/L (136-145)
[2018-08-05] MEDS: LOSARTAN 50MG/HCTZ 12.5MG 1 TAB (FP) PO SCH (09:31)
[2018-08-05] MEDS: AMOX TR/POT CLAV 875MG/125MG TABLETS (FP) PO SCH ×2 (09:31→17:52)
[2018-08-05] MEDS: metoPROLOL SUCCINATE 25 MG TAB.SR.24H (FP) PO SCH (09:31)
[2018-08-05] MEDS: ASPIRIN 81 MG CHEWABLE TABLETS PO SCH (09:31)
[2018-08-05] MEDS: amLODIPine BESYLATE 5 MG TABLET (FP) PO SCH (09:32)
[2018-08-05] MEDS: HEPARIN NA (PORCINE) 5,000 UNITS/ML 1ML VIAL SQ SCH ×2 (09:32→22:03)
[2018-08-05] MEDS: CLOPIDOGREL BISULFATE 75 MG TABLET (FP) PO SCH (09:32)
[2018-08-05] MEDS: GENTAMICIN SO4 0.1% TOP CREAM 15 GM/TUBE TP SCH ×2 (09:34→22:04)
--- NOTE | 2018-08-05 09:54 | PN ---
Progress Note, Physician History of Present Illness: patient stable doing well no new issues vascular op note noted - Current Medication List Current Medications: Active Medications Acetaminophen (Tylenol -) 325 mg PO Q6H PRN PRN Reason: PAIN LEVEL 6-10 Amlodipine Besylate (Norvasc -) 5 mg PO DAILY [facility] Last Admin: 08/05/18 09:32 Dose: 5 mg Amoxicillin/Clavulanate Potassium (Augmentin - 875mg Tablet) 1 tab PO BID@0800, 1730 [facility] Last Admin: 08/05/18 09:31 Dose: 1 tab Aspirin (Asa -) 81 mg PO DAILY [facility] Last Admin: 08/05/18 09:31 Dose: 81 mg Atorvastatin Calcium (Lipitor -) 20 mg PO HS [facility] Last Admin: 08/04/18 21:41 Dose: 20 mg Clopidogrel Bisulfate (Plavix -) 75 mg PO DAILY [facility] Last Admin: 08/05/18 09:32 Dose: 75 mg Gabapentin (Neurontin -) 300 mg PO TID [facility] Last Admin: 08/05/18 06:48 Dose: 300 mg Gentamicin Sulfate (Garamycin 0.1% Cream -) 1 applic TP BID [facility] Last Admin: 08/05/18 09:34 Dose: 1 applic HCTZ/Losartan Potassium (Hyzaar -) 1 tab PO DAILY [facility] Last Admin: 08/05/18 09:31 Dose: 1 tab Heparin Sodium (Porcine) (Heparin -) 5,000 unit SQ BID [facility] Last Admin: 08/05/18 09:32 Dose: 5,000 unit Lactated Ringer's (Lactated Ringers Solution) 1,000 mls @ 125 mls/hr IV ASDIR [place] Sodium Chloride (1/2 Normal Saline) 1,000 mls @ 75 mls/hr IV ASDIR [place] Insulin Aspart (Novolog Vial Sliding Scale -) 1 vial SQ ACHS [facility]; Protocol Last Admin: 08/05/18 06:48 Dose: 2 units Metoprolol Succinate (Toprol Xl -) 25 mg PO DAILY [facility] Last Admin: 08/05/18 09:31 Dose: 25 mg - Objective Vital Signs: Vital Signs Temperature 97.9 F 08/05/18 06:00 Pulse Rate 80 08/05/18 06:00 Respiratory Rate 20 08/05/18 06:00 Blood Pressure 107/64 08/05/18 06:00 O2 Sat by Pulse Oximetry (%) 98 08/04/18 21:00 Constitutional: Yes: No Distress, Calm Cardiovascular: Yes: Regular Rate and Rhythm Respiratory: Yes: Regular, CTA Bilaterally Gastrointestinal: Yes: Normal Bowel Sounds, Soft Musculoskeletal: Yes: WNL Extremities: Yes: Other Neurological: Yes: Alert, Oriented Labs: CBC, BMP 08/04/18 06:30 08/05/18 06:15 INR, PTT INR 1.03 (0.83-1.09) 07/29/18 17:15 - ....Imaging MRI: Report Reviewed, Image Reviewed Assessment/Plan Problem List - Problems (1) Cellulitis Code(s): L03.90 - CELLULITIS, UNSPECIFIED Qualifiers: Site of cellulitis of trunk: unspecified site (2) Diabetes Code(s): E11.9 - TYPE 2 DIABETES MELLITUS WITHOUT COMPLICATIONS (3) HTN (hypertension) Code(s): I10 - ESSENTIAL (PRIMARY) HYPERTENSION (4) HLD (hyperlipidemia) Code(s): E78.5 - HYPERLIPIDEMIA, UNSPECIFIED (5) Diabetic neuropathy Code(s): E11.40 - TYPE 2 DIABETES MELLITUS WITH DIABETIC NEUROPATHY, UNSP (6) PVD (peripheral vascular disease) Code(s): I73.9 - PERIPHERAL VASCULAR DISEASE, UNSPECIFIED (7) Obesity Code(s): E66.9 - OBESITY, UNSPECIFIED (8) CAD (coronary artery disease) Code(s): I25.10 - ATHSCL HEART DISEASE OF [place] CORONARY ARTERY W/O ANG PCTRS cx results noted plan continue oral abx wound care rest as per the team stable as per vascular
--- NOTE | 2018-08-05 11:26 | PN ---
Progress Note (short form) - Note Progress Note: Anesthesia post op Pt seen and examined S:Alert and awake O: Vital Signs Temperature 97.9 F 08/05/18 06:00 Pulse Rate 80 08/05/18 06:00 Respiratory Rate 20 08/05/18 06:00 Blood Pressure 107/64 08/05/18 06:00 O2 Sat by Pulse Oximetry (%) 98 08/04/18 21:00 CBC, BMP 08/04/18 06:30 08/05/18 06:15 A/P Current Active Problems Blister (Acute) CAD (coronary artery disease) (Acute) Cellulitis (Acute) Diabetic neuropathy (Acute) PVD (peripheral vascular disease) (Acute) Wound infection (Acute) s/p angio/baloon Doing well post op Continue current care Vince Don MD
[2018-08-05] MEDS: SODIUM CHLORIDE 0.45% 1,000 ML IV SCH (12:12)
[2018-08-05] MEDS: LACTATED RINGERS SOLUTION 1,000 ML IV SCH (12:13)
--- NOTE | 2018-08-05 15:07 | PN ---
Progress Note (short form) - Note Progress Note: 48M s/p LLE angio, pt seen and examined at bedside. Pt states that his leg pain feels a little better. Pt denies pain or swelling in the legs or groin. Last Vital Signs Temp Pulse Resp BP Pulse Ox 97.9 F 80 20 107/64 98 08/05/18 06:00 08/05/18 06:00 08/05/18 06:00 08/05/18 06:00 08/04/18 21:00 CBC, BMP 08/04/18 06:30 08/05/18 06:15 PE: Gen: A&O x3 Resp: breathing comfortably Ext: No pulsatile masses or swelling in Groin, no leg edema. Dopplarable pulses LLE <John Dietz - Last Filed: 08/05/18 14:55> - Note Progress Note: Angiogram confirmed occlusion of left SFA. The occluded segment could not be crossed due to indwelling stent. Distal popliteal reconstitution with tibial runoff seen. At this time there are no limb-threatening symptoms. Further treatment will be postponed to see if more severe problems develop. Retrograde angiogram or bypass may be offered if necessary. I will follow in my office. <Tate Sorensen - Last Filed: 08/05/18 17:33> Problem List - Problems (1) PAD (peripheral artery disease) Assessment/Plan: Plan -Pt is cleared from vascular surgery for discharge, pt will need to follow up with Dr. Sorensen as an outpatient -continue dressing changes -Abx as per medicine/ID Code(s): I73.9 - PERIPHERAL VASCULAR DISEASE, UNSPECIFIED <John Dietz - Last Filed: 08/05/18 14:55>
--- NOTE | 2018-08-05 18:59 | OP ---
DATE OF OPERATION: 08/04/2018 SURGEON: Tate Boland M.D. PROCEDURE: Angiography left lower extremity with catheterization of the femoral artery. PREOPERATIVE DIAGNOSIS: Peripheral arterial disease with occlusion of left femoral artery. POSTOPERATIVE DIAGNOSIS: Peripheral arterial disease with occlusion of left femoral artery. ANESTHESIA: Fractional. ANESTHESIOLOGIST: Isabel Gupta MD OPERATIVE FINDINGS: The left superficial femoral artery was patent proximally but occluded in the proximal portion of the thigh. There was an old indwelling stent which was occluded in the mid-thigh and the popliteal artery reconstituted above the knee. There was at least 2-vessel runoff below the knee. OPERATIVE PROCEDURE: Following routine patient identification with side and site verification, intravenous sedation was established. The left groin was prepped with ChloraPrep. A timeout was performed. Using real-time duplex imaging, the left femoral artery was identified. Lidocaine was infiltrated in the skin and subcutaneous tissues over the artery and the artery was then cannulated with a micropuncture needle under ultrasound guidance. Wire was passed distally, and the needle was exchanged for a 5-Kazakh catheter. A 5-Kazakh sheath was then placed over a wire. The patient was systemically heparinized. A wire and catheter was advanced distally into the superficial femoral artery to the point of occlusion. Using road mapping technique, wire was advanced into the occluded portion of the femoral artery down to the level of the stent but could not be brought to the luminal side of the stent. The wire stayed in the subintimal space and could not be passed distal to the stent. After multiple attempts, the procedure was terminated by removing the wire and sheath and using a Mynx device for closure. Sterile dressing was applied, and patient was taken to the recovery room in stable condition. TATE BOLAND M.D. LINDA/[id number]
--- NOTE | 2018-08-05 20:56 | PN ---
Progress Note, Physician - Current Medication List Current Medications: Active Medications Acetaminophen (Tylenol -) 325 mg PO Q6H PRN PRN Reason: PAIN LEVEL 6-10 Amlodipine Besylate (Norvasc -) 5 mg PO DAILY [facility] Last Admin: 08/05/18 09:32 Dose: 5 mg Amoxicillin/Clavulanate Potassium (Augmentin - 875mg Tablet) 1 tab PO BID@0800, 1730 [facility] Last Admin: 08/05/18 17:52 Dose: 1 tab Aspirin (Asa -) 81 mg PO DAILY [facility] Last Admin: 08/05/18 09:31 Dose: 81 mg Atorvastatin Calcium (Lipitor -) 20 mg PO HS [facility] Last Admin: 08/04/18 21:41 Dose: 20 mg Clopidogrel Bisulfate (Plavix -) 75 mg PO DAILY [facility] Last Admin: 08/05/18 09:32 Dose: 75 mg Gabapentin (Neurontin -) 300 mg PO TID [facility] Last Admin: 08/05/18 14:50 Dose: 300 mg Gentamicin Sulfate (Garamycin 0.1% Cream -) 1 applic TP BID [facility] Last Admin: 08/05/18 09:34 Dose: 1 applic HCTZ/Losartan Potassium (Hyzaar -) 1 tab PO DAILY [facility] Last Admin: 08/05/18 09:31 Dose: 1 tab Heparin Sodium (Porcine) (Heparin -) 5,000 unit SQ BID [facility] Last Admin: 08/05/18 09:32 Dose: 5,000 unit Lactated Ringer's (Lactated Ringers Solution) 1,000 mls @ 125 mls/hr IV ASDIR [facility] Last Admin: 08/05/18 12:13 Dose: Not Given Sodium Chloride (1/2 Normal Saline) 1,000 mls @ 75 mls/hr IV ASDIR [facility] Last Admin: 08/05/18 12:12 Dose: Not Given Insulin Aspart (Novolog Vial Sliding Scale -) 1 vial SQ ACHS [facility]; Protocol Last Admin: 08/05/18 17:52 Dose: 4 units Metoprolol Succinate (Toprol Xl -) 25 mg PO DAILY [facility] Last Admin: 08/05/18 09:31 Dose: 25 mg - Objective Vital Signs: Vital Signs Temperature 98.2 F 08/05/18 16:15 Pulse Rate 89 08/05/18 16:15 Respiratory Rate 18 08/05/18 16:15 Blood Pressure 126/86 08/05/18 16:15 O2 Sat by Pulse Oximetry (%) 98 08/04/18 21:00 Labs: CBC, BMP 08/04/18 06:30 08/05/18 06:15 INR, PTT INR 1.03 (0.83-1.09) 07/29/18 17:15 Problem List - Problems (1) Cellulitis Code(s): L03.90 - CELLULITIS, UNSPECIFIED Qualifiers: Site of cellulitis of trunk: unspecified site (2) Diabetes Code(s): E11.9 - TYPE 2 DIABETES MELLITUS WITHOUT COMPLICATIONS (3) HTN (hypertension) Code(s): I10 - ESSENTIAL (PRIMARY) HYPERTENSION (4) HLD (hyperlipidemia) Code(s): E78.5 - HYPERLIPIDEMIA, UNSPECIFIED (5) Diabetic neuropathy Code(s): E11.40 - TYPE 2 DIABETES MELLITUS WITH DIABETIC NEUROPATHY, UNSP (6) PVD (peripheral vascular disease) Code(s): I73.9 - PERIPHERAL VASCULAR DISEASE, UNSPECIFIED (7) Obesity Code(s): E66.9 - OBESITY, UNSPECIFIED (8) CAD (coronary artery disease) Code(s): I25.10 - ATHSCL HEART DISEASE OF [place] CORONARY ARTERY W/O ANG PCTRS
[2018-08-05] MEDS: ATORVASTATIN CA 20 MG TABLET (FP) PO SCH (22:03)
[2018-08-06] MEDS ORDERED: PT OWN MED DRAWER 7, Y5N ONE (01:14)
[2018-08-06] MEDS: GABAPENTIN 300 MG CAPSULE (FP) PO SCH ×2 (06:45→13:17)
[2018-08-06] MEDS: INSULIN SLIDING SCALE (NOVOLOG) 1 VIAL SQ SCH ×2 (06:46→12:00)
--- NOTE | 2018-08-06 09:17 | PN ---
Progress Note, Physician History of Present Illness: patient stable no new issues - Current Medication List Current Medications: Active Medications Acetaminophen (Tylenol -) 325 mg PO Q6H PRN PRN Reason: PAIN LEVEL 6-10 Amlodipine Besylate (Norvasc -) 5 mg PO DAILY [facility] Last Admin: 08/05/18 09:32 Dose: 5 mg Amoxicillin/Clavulanate Potassium (Augmentin - 875mg Tablet) 1 tab PO BID@0800, 1730 [facility] Last Admin: 08/05/18 17:52 Dose: 1 tab Aspirin (Asa -) 81 mg PO DAILY [facility] Last Admin: 08/05/18 09:31 Dose: 81 mg Atorvastatin Calcium (Lipitor -) 20 mg PO HS [facility] Last Admin: 08/05/18 22:03 Dose: 20 mg Clopidogrel Bisulfate (Plavix -) 75 mg PO DAILY [facility] Last Admin: 08/05/18 09:32 Dose: 75 mg Gabapentin (Neurontin -) 300 mg PO TID [facility] Last Admin: 08/06/18 06:45 Dose: 300 mg Gentamicin Sulfate (Garamycin 0.1% Cream -) 1 applic TP BID [facility] Last Admin: 08/05/18 22:04 Dose: 1 applic HCTZ/Losartan Potassium (Hyzaar -) 1 tab PO DAILY [facility] Last Admin: 08/05/18 09:31 Dose: 1 tab Heparin Sodium (Porcine) (Heparin -) 5,000 unit SQ BID [facility] Last Admin: 08/05/18 22:03 Dose: 5,000 unit Lactated Ringer's (Lactated Ringers Solution) 1,000 mls @ 125 mls/hr IV ASDIR [facility] Last Admin: 08/05/18 12:13 Dose: Not Given Sodium Chloride (1/2 Normal Saline) 1,000 mls @ 75 mls/hr IV ASDIR [facility] Last Admin: 08/05/18 12:12 Dose: Not Given Insulin Aspart (Novolog Vial Sliding Scale -) 1 vial SQ ACHS [facility]; Protocol Last Admin: 08/06/18 06:46 Dose: 2 units Metoprolol Succinate (Toprol Xl -) 25 mg PO DAILY [facility] Last Admin: 08/05/18 09:31 Dose: 25 mg - Objective Vital Signs: Vital Signs Temperature 98.5 F 08/06/18 06:00 Pulse Rate 93 H 08/06/18 06:00 Respiratory Rate 18 08/06/18 06:00 Blood Pressure 111/74 08/06/18 06:00 O2 Sat by Pulse Oximetry (%) 98 08/04/18 21:00 Constitutional: Yes: No Distress, Calm Cardiovascular: Yes: Regular Rate and Rhythm Respiratory: Yes: Regular, CTA Bilaterally Gastrointestinal: Yes: Normal Bowel Sounds, Soft Musculoskeletal: Yes: WNL Extremities: Yes: WNL Psychiatric: Yes: Alert, Oriented Labs: CBC, BMP 08/04/18 06:30 08/05/18 06:15 INR, PTT INR 1.03 (0.83-1.09) 07/29/18 17:15 Assessment/Plan Problem List - Problems (1) Cellulitis Code(s): L03.90 - CELLULITIS, UNSPECIFIED Qualifiers: Site of cellulitis of trunk: unspecified site (2) Diabetes Code(s): E11.9 - TYPE 2 DIABETES MELLITUS WITHOUT COMPLICATIONS (3) HTN (hypertension) Code(s): I10 - ESSENTIAL (PRIMARY) HYPERTENSION (4) HLD (hyperlipidemia) Code(s): E78.5 - HYPERLIPIDEMIA, UNSPECIFIED (5) Diabetic neuropathy Code(s): E11.40 - TYPE 2 DIABETES MELLITUS WITH DIABETIC NEUROPATHY, UNSP (6) PVD (peripheral vascular disease) Code(s): I73.9 - PERIPHERAL VASCULAR DISEASE, UNSPECIFIED (7) Obesity Code(s): E66.9 - OBESITY, UNSPECIFIED (8) CAD (coronary artery disease) Code(s): I25.10 - ATHSCL HEART DISEASE OF [place] CORONARY ARTERY W/O ANG PCTRS cx results noted plan continue oral abx wound care rest as per the team stable as per vascular stop abx after 5 more days
[2018-08-06] MEDS: LOSARTAN 50MG/HCTZ 12.5MG 1 TAB (FP) PO SCH (09:38)
[2018-08-06] MEDS: AMOX TR/POT CLAV 875MG/125MG TABLETS (FP) PO SCH (09:38)
[2018-08-06] MEDS: metoPROLOL SUCCINATE 25 MG TAB.SR.24H (FP) PO SCH (09:39)
[2018-08-06] MEDS: HEPARIN NA (PORCINE) 5,000 UNITS/ML 1ML VIAL SQ SCH (09:39)
[2018-08-06] MEDS: ASPIRIN 81 MG CHEWABLE TABLETS PO SCH (09:39)
[2018-08-06] MEDS: CLOPIDOGREL BISULFATE 75 MG TABLET (FP) PO SCH (09:39)
[2018-08-06] MEDS: amLODIPine BESYLATE 5 MG TABLET (FP) PO SCH (09:39)
[2018-08-06] MEDS: GENTAMICIN SO4 0.1% TOP CREAM 15 GM/TUBE TP SCH (09:39)
[2018-08-06] MEDS: LACTATED RINGERS SOLUTION 1,000 ML IV SCH (11:21)
[2018-08-06] MEDS: SODIUM CHLORIDE 0.45% 1,000 ML IV SCH (11:21)
[2018-08-06 12:27] VITALS: BP 146/71; PULSE 85; TEMP 98.8
== END 2018-08-06 15:24 | disposition home or self-care (01) | DRG 253 ==
LOC: JER 16:51 → JERBED 19:37 → J8W 22:41
PROVIDERS: ADMIT Internal Medicine; ATTEND Internal Medicine
PROC: 047L3ZZ Dilation of Left Femoral Artery, Percutaneous Approach (ICD-10-PCS; principal; 2018-08-05)
PROC: B40GYZZ Plain Radiography of Left Lower Extremity Arteries using Other Contrast (ICD-10-PCS; 2018-08-05)
DX: E11.51 Type 2 diabetes mellitus with diabetic peripheral angiopathy without gangrene (principal); L03.116 Cellulitis of left lower limb; T82.898A Other specified complication of vascular prosthetic devices, implants and grafts, initial encounter; L97.528 Non-pressure chronic ulcer of other part of left foot with other specified severity; I77.1 Stricture of artery; S91.102A Unspecified open wound of left great toe without damage to nail, initial encounter; I10 Essential (primary) hypertension; E78.5 Hyperlipidemia, unspecified; I25.10 Atherosclerotic heart disease of native coronary artery without angina pectoris; E11.40 Type 2 diabetes mellitus with diabetic neuropathy, unspecified; E66.9 Obesity, unspecified; Z68.38 Body mass index [BMI] 38.0-38.9, adult; E11.621 Type 2 diabetes mellitus with foot ulcer
CPT/HCPCS: 36415; 73630-TC-LT; 76000-TC-FY; 80048; 80053; 82962; 83605; 85025; 85610; 85730; 87040; 87070; 87186; 87205; 93005; 93010; 93926-TC; 94760; 99283-25; J1644; J7030

== ENCOUNTER 2018-12-03 05:22 | Inpatient (IN) | payer OTHER ==
[2018-12-03 06:47] LABS: HEMATOCRIT 40.8 % (35.4-49); HEMOGLOBIN 13.6 GM/dL (11.7-16.9); MCH 27.8 pg (25.7-33.7); MCHC 33.3 g/dl (32.0-35.9); MEAN CELL VOLUME 83.6 fl (80-96); MEAN PLT VOLUME 7.4 fl (7.5-11.1); PLATELET COUNT 220 K/MM3 (134-434); RBC 4.88 M/mm3 (4.00-5.60); RDW 15.7 % (11.9-15.9); WHITE BLOOD COUNT 11.2 K/mm3 (4.0-10.0)
[2018-12-03] MEDS ORDERED: ceFAZolin SODIUM 1 GM VIAL ONE ×2 (06:49→11:42)
[2018-12-03 07:00] LABS: INR 0.97 (0.83-1.09); PROTHROMBIN TIME (PATIENT) 11.5 SEC (9.7-13.0)
[2018-12-03] MEDS ORDERED: MIDAZOLAM HCL 2 MG/2 ML SINGLE DOSE VIAL ONE (07:11)
[2018-12-03] MEDS ORDERED: SUCCINYLCHOLINE CHLORIDE 200 MG/10 ML VIAL ONE (07:14)
[2018-12-03] MEDS ORDERED: PROPOFOL 20 ML ONE ×5 (07:14→13:05)
[2018-12-03] MEDS ORDERED: GLYCOPYRROLATE 0.2 MG/1 ML VIAL ONE (07:14)
[2018-12-03] MEDS ORDERED: DEXAMETHASONE SOD PHOSPHATE 4 MG/1 ML VIAL ONE ×2 (07:14→11:42)
[2018-12-03] MEDS ORDERED: ROCURONIUM BROMIDE 50 MG/5 ML VIAL ONE ×4 (07:14→09:13)
[2018-12-03] MEDS ORDERED: LIDOCAINE HCL/PF 2% SDV 5ML VIAL ONE ×2 (07:14→11:38)
[2018-12-03] MEDS ORDERED: KETOROLAC TROMETHAMINE 30 MG/1 ML VIAL ONE (07:14)
[2018-12-03 07:15] LABS: ALBUMIN 3.4 g/dl (3.4-5.0); ALK PHOS 214 U/L (45-117); ANION GAP 5 MMOL/L (8-16); BILIRUBIN,TOTAL 0.4 mg/dL (0.2-1); BLOOD UREA NITROGEN 26 mg/dL (7-18); CALCIUM 9.1 mg/dL (8.5-10.1); CHLORIDE 101 mmol/L (98-107); CO2 29 mmol/L (21-32); CREATININE 1.3 mg/dL (0.55-1.3); GLUCOSE,RANDOM 214 mg/dL (74-106); POTASSIUM 3.8 mmol/L (3.5-5.1); SGOT/AST 11 U/L (15-37); SGPT/ALT 26 U/L (13-61); SODIUM 135 mmol/L (136-145); TOT PROT 7.2 g/dl (6.4-8.2)
[2018-12-03] MEDS ORDERED: PAPAVERINE HCL 30 MG/1 ML 10 ML VIAL NR ONE (07:39)
[2018-12-03] MEDS ORDERED: HEPARIN NA (PORCINE) 5,000 UNITS/ML 1ML VIAL ONE (07:39)
[2018-12-03] MEDS ORDERED: BACITRACIN 15 GM TUBE TOPICAL OINTMENT ONE (07:39)
[2018-12-03] MEDS ORDERED: LIDOCAINE HCL 1%, 10 MG/ML (20ML VIAL) ONE (07:40)
[2018-12-03] MEDS ORDERED: CEFAZOLIN 2 GM/D5W 2 GM/50 ML ML IVPB ONE (08:00)
[2018-12-03] MEDS ORDERED: CEFAZOLIN 3 GM in DEXTROSE 5%-WATER - 50 ML IVPB ONE (08:01)
--- NOTE | 2018-12-03 08:01 | HP ---
History & Physical Update - History History: No Change - Physical Physical: No Change (On Keflex 500mg tid for ?cellulitis R poasterior neck. Cleared for surgery 12/02/[address] Nikolay Cooper. No h/o dvt/pe) - Assessment Assessment: No Change - Plan Plan: No Change
[2018-12-03] MEDS ORDERED: ONDANSETRON 4 MG/2 ML VIAL IVPUSH PRN (08:04)
[2018-12-03] MEDS ORDERED: LACTATED RINGERS SOLUTION 1,000 ML IV SCH (08:15)
[2018-12-03] MEDS ORDERED: ceFAZolin SODIUM 1 GM VIAL IVPB ONE (08:44)
[2018-12-03] MEDS ORDERED: METOPROLOL TARTRATE 5 MG/5 ML VIAL ONE (11:38)
[2018-12-03] MEDS ORDERED: PHENYLEPHRINE HCL 10 MG/1 ML SINGLE DOSE VIAL ONE (11:42)
[2018-12-03] MEDS ORDERED: CLINDAMYCIN PHOSPHATE 600 MG/4 ML VIAL ONE (11:42)
[2018-12-03] MEDS ORDERED: LIDOCAINE HCL 2% 100 MG/5 ML DISP.SYRIN ONE (11:42)
[2018-12-03] MEDS ORDERED: NOREPINEPHRINE BITARTRATE 4 MG/4 ML ML IV ONE (11:42)
[2018-12-03] MEDS ORDERED: methylPREDNISolone NA SUCC 125 MG/2 ML VIAL ONE (11:42)
[2018-12-03] MEDS ORDERED: NITROGLYCERIN 50 MG/10 ML VIAL IVPB ONE (11:42)
[2018-12-03] MEDS ORDERED: CALCIUM CHLORIDE 1 GM/10 ML *DISP.SYRIN ONE (11:42)
[2018-12-03] MEDS ORDERED: ETOMIDATE 20 MG/10 ML AMPUL IVPUSH ONE (11:42)
[2018-12-03] MEDS ORDERED: SODIUM CHLORIDE 0.9% P/F 10 ML VIAL IJ ONE (11:42)
[2018-12-03] MEDS ORDERED: VERAPAMIL HCL 5 MG/2 ML VIAL IVPUSH ONE (11:42)
[2018-12-03] MEDS ORDERED: VASOPRESSIN 20 UNITS/ML VIAL IV ONE (11:42)
[2018-12-03] MEDS ORDERED: POVIDONE-IODINE OINTMENT 10% - 28.4 GM TUBE ONE (12:11)
[2018-12-03] MEDS ORDERED: NEOSTIGMINE METHYLSULFATE 0.5 MG/ML - 10 ML MDV ONE (12:42)
--- NOTE | 2018-12-03 13:25 | OP ---
Operative Note - Note: Operative Date: 12/03/18 Pre-Operative Diagnosis: Left femoral artery occlusion with claudication Operation: Left femoral-popliteal bypass with reversed saphenous vein. Angiogram left iliac artery Findings: No evidence for left iliac stenosis. Thick plaque left common femoral artery. Post-Operative Diagnosis: Same as Pre-op Surgeon: Tate Sorensen Ship Construction Teacher: Emani Isidro Anesthesiologist/FACILITY TECHNICIAN: Van Curran Anesthesia: General Specimens Removed: Femoral plaque Estimated Blood Loss (mls): 200
[2018-12-03] MEDS ORDERED: oxyCODONE HCL 5 MG TABLET PO PRN (13:28)
[2018-12-03] MEDS ORDERED: morphine SULFATE 4 MG/ML VIAL IVPUSH PRN (13:29)
--- NOTE | 2018-12-03 13:29 | HP ---
Admitting History and Physical - Admission History of Present Illness: 48 year old man with long history of PAD. He has had bilateral femoral stents and right leg bypass x 2. He now complains of pain walking short distances in the left leg. Angiogram in July showed occluded left femoral artery and stent. History Source: Patient Limitations to Obtaining History: No Limitations - Past Medical History Cardiovascular: Yes: HTN, Hyperlipdemia, Other (PAD) Gastrointestinal: Yes: Other (Obesity) Renal/: Yes: Renal Inusuff. 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 History of Recent Travel: Yes ([place] 2 weeks ago) Home Medications - Allergies Allergies/Adverse Reactions: Allergies Allergy/AdvReac Type Severity Reaction Status Date / Time No Known Allergies Allergy Verified 12/02/18 12:38 - Home Medications Home Medications: Ambulatory Orders Insulin Pump Syringe, 1.8 ml [Thinset] 1 each [facility] DAILY 10/21/16 Losartan/Hydrochlorothiazide [Losartan-Hctz 50-12.5 mg Tab] 1 each PO DAILY 09/06 Aspirin [ASA -] 81 mg PO DAILY #30 tab.chew 03/04/18 Atorvastatin Ca [Lipitor] 20 mg PO HS #30 tablet 03/04/18 Clopidogrel Bisulfate [Plavix -] 75 mg PO DAILY #30 tablet 03/04/18 Gabapentin [Neurontin -] 300 mg PO TID #30 capsule 03/04/18 Amlodipine Besylate 5 mg PO DAILY 04/07/18 Acetaminophen [Tylenol .Regular Strength -] 650 mg PO Q6H PRN tablet 04/12/18 Family Disease History - Family Disease History Family Disease History: Diabetes: Father, Heart Disease: Mother ( [place]) Physical Examination Vital Signs: Vital Signs Temperature 98.2 F 12/03/18 06:34 Pulse Rate 98 H 12/03/18 06:34 Respiratory Rate 20 12/03/18 06:34 Blood Pressure 156/97 12/03/18 06:34 O2 Sat by Pulse Oximetry (%) 98 12/03/18 06:34 Constitutional: Yes: Obese Eyes: Yes: WNL HENT: Yes: WNL Neck: Yes: Supple Cardiovascular: Yes: WNL, Regular Rate and Rhythm Respiratory: Yes: WNL Gastrointestinal: Yes: Soft Edema: No Peripheral Pulses WNL: No (Absent pedal pulses left foot) Labs: CBC, BMP 12/03/18 06:42 12/03/18 06:42 Problem List - Problems (1) Intermittent claudication of left lower extremity due to atherosclerosis Assessment/Plan: Left femoral poplitea bypass Code(s): I70.212 - ATHSCL [place] ARTERIES OF EXTRM W INTRMT LIZABETH, LEFT LEG
--- NOTE | 2018-12-03 13:38 | SURG ---
Surgery Dental Office Assistant Note Dental Office Assistant: Emani Isidro PA-C (Suzy) Date of Service: 12/03/18 Diagnosis: Left femoral artery occlusion with claudication Procedure: Left femoral-popliteal bypass with reversed saphenous vein. Angiogram left iliac artery I was present for the entirety of the operative procedure. For further detail, please refer to operative report.
[2018-12-03] MEDS ORDERED: ONDANSETRON 4 MG/2 ML VIAL ONE ×2 (13:42→18:02)
[2018-12-03] MEDS ORDERED: INSULIN (NOVOLOG) ASPART 100 UNITS/ML 10ML VIAL SQ ONE ×2 (13:51→17:58)
--- NOTE | 2018-12-03 14:12 | OP ---
DATE OF OPERATION: 12/03/2018 SURGEON: Tate Sorensen MD STONE REPAIRER: ALLYN Isidro PROCEDURE: 1. Left femoral popliteal bypass with reversed saphenous vein. 2. Angiogram of left iliac artery. 3. Endarterectomy of left common femoral artery. PREOPERATIVE DIAGNOSIS: Occlusion of left femoral artery with severe claudication. POSTOPERATIVE DIAGNOSIS: Occlusion of left femoral artery with severe claudication. ANESTHESIA: General. ANESTHESIOLOGIST: MILAN Herrera OPERATIVE FINDINGS: There was severe atherosclerotic plaque in the left common femoral and popliteal arteries. There was no evidence of hemodynamically significant stenosis of the left iliac artery. OPERATIVE PROCEDURE: Following routine patient identification with side and site verification general anesthesia was induced. A Low catheter was placed. The left leg was prepped with ChloraPrep. Timeout was performed. Skin incision was made from the medial proximal calf to the groin over the great saphenous vein which had been mapped preoperatively with duplex imaging. The vein was mobilized from its bed. All side branches were ligated with silk ties and divided. Vein was cannulated distally and distended with heparin and papaverine solution during the dissection. The vein was freed up to the saphenofemoral junction. It was wrapped in moist gauze. The femoral artery was then exposed in the proximal end of the groin incision. Overlying tissues were divided with cautery. The artery was encircled proximally and distally with vessel loops. All side branches were ligated with silk ties and divided. Palpation of the arterial pulse appeared to be weak. The artery was cannulated with an 18-gauge needle and a pressure transducer used. This initially showed a pressure gradient of 20 mmHg compared to the arm pressure. Because of this a 7-Uzbek sheath was exchanged over a wire and then angiogram of the left lower extremity was performed with contrast and digital technique. This did not reveal any severe stenoses. Catheter was advanced to the abdominal aorta and pulled back with continuous pressure measurements which showed no gradient and the pressure through the sheath was also equivalent to the arm pressure. The above-knee popliteal artery was then exposed by deepening of the skin incision through the muscle fascia. The artery was encircled proximally and distally with vessel loops. Overlying veins were then divided to expose the vessel. Patient was systemically heparinized. The vein was ligated proximally and distally and removed flush with saline solution. The femoral artery was occluded with vascular clamps and the sheath was removed. An arteriotomy was made extending approximately 12 mm in length. Thick atherosclerotic plaque was within the arterial lumen and decision was made to perform a local endarterectomy. Plaque was removed. The distal plaque was tacked down with 6-0 Prolene sutures to prevent dissection. The vein was then brought in the reversed configuration and the distal end was spatulated. It was anastomosed to the side of the artery with running suture of 6-0 Prolene. Prior to completion of the suture line the vein was occluded with a plastic bulldog clamp and the artery was allowed to backbleed and flush. Suture line was then completed and the artery was released. There was good flow into the proximal vein to the occluding point. The clamp was then moved down to the end of the vein and the vein was marked. A long clamp was then passed in the subsartorial space and the vein passed underneath the muscle to lie next to the artery in the above-knee configuration. The artery was occluded with bulldog clamps and opened on exposed surface with a 10-mm arteriotomy. The vein was spatulated and anastomosed to the side of the artery with running suture of 6-0 Prolene. Prior to completion of the suture line the artery was allowed to backbleed and flush and the vein was flushed and filled with heparin solution. Suture line was completed and all vessels were released. There was good flow through the anastomosis with a strong Doppler signal distally. Bleeding from suture lines was controlled with Surgicel. The wounds were then irrigated and closed with interrupted sutures of 3-0 Vicryl and skin leilani. Sterile dressings were applied. The patient was then transferred to the recovery room in stable condition. Vitaly [id number] MTDGilbert
[2018-12-03] MEDS ORDERED: CEFAZOLIN 2 GM/D5W 2 GM/50 ML ML IVPB SCH (14:45)
[2018-12-03] MEDS: GABAPENTIN 300 MG CAPSULE (FP) PO SCH ×2 (15:09→21:14)
--- NOTE | 2018-12-03 15:10 | CONSULT ---
Consultation: REQUESTING PROVIDER: Dr. Sorensen CONSULT REQUEST: We have been asked to medically evaluate this patient for S/P Left femoral-popliteal bypass with reversed saphenous vein and Angiogram left iliac artery. HISTORY OF PRESENT ILLNESS: Patient is a 48 year old male with a PMHx of PAD (s/p bilateral femoral stents and right leg bypassx2), HTN, HLD, IDDMII (on an Insulin pump), CKD, obesity who is admitted to the ICU for s/p Left femoral-popliteal bypass with reversed saphenous vein and Angiogram left iliac artery. According to patients chart and history provided by the surgical PA, patient has a history of femoral popliteal bypass in bilateral legs but returns complaining of claudication with pain in the left leg when walking short distances. Patient is now POD #0 and received general anesthesia with no complications, EBL of 200cc, and was given 4.5L of fluids. PMHx: PAD (s/p bilateral femoral stents and right leg bypassx2) HTN HLD IDDMII (on an Insulin pump) CKD obesity PSHx: Removal of Lung Tumor (at age 6 months) Bilateral femoral stents x2 Social Hx: Former smoker REVIEW OF SYSTEMS: Unable to obtain information as patient is still sedated PHYSICAL EXAMINATION Vital Signs 12/03/18 12/03/18 14:30 14:45 Temperature Pulse Rate 76 81 Respiratory 14 14 Rate Blood Pressure 134/74 136/78 O2 Sat by Pulse 98 98 Oximetry (%) GENERAL: Sedated HEAD: Normal with no signs of trauma. EYES: Pupils equal, round and reactive to light, sclera anicteric, conjunctiva clear. ENT: Patient sedated and unable to open mouth NECK: (-) JVD. LUNGS: Decreased breath sounds anteriorly. No accessory muscle use. HEART: Regular rate and rhythm, normal S1 and S2 without murmur, rub or gallop. ABDOMEN: Soft, obese, not distended, normoactive bowel sounds, no guarding, no rebound, no masses. No hepatomegaly or splenomegaly. EXTREMITIES: Multiple RLE healed surgical scars NEUROLOGICAL: Unable to assess PSYCHIATRIC: Unable to assess Laboratory Results 12/03/18 06:42 12/03/18 06:42 12/03/18 06:42 Total Bilirubin 0.4 AST 11 L ALT 26 Alkaline Phosphatase 214 H Active Medications Generic Name Dose Route Start Last Admin Trade Name Freq PRN Reason Stop Dose Admin Acetaminophen 650 mg 12/03/18 20:30 Tylenol - PO Q6H PRN PAIN OR FEVER Amlodipine Besylate 5 mg 12/04/18 10:00 Norvasc - PO DAILY [facility] Aspirin 81 mg 12/04/18 10:00 Asa - PO DAILY [facility] Atorvastatin Calcium 20 mg 12/03/18 22:00 Lipitor - PO HS [facility] Clopidogrel Bisulfate 75 mg 12/04/18 10:00 Plavix - PO DAILY [facility] Fentanyl 50 mcg 12/03/18 08:04 Sublimaze Injection - IVPUSH [id number] PRN PAIN-PACU ORDER X 4 DOSES ONLY Gabapentin 300 mg 12/03/18 14:00 Neurontin - PO TID [facility] HCTZ/Losartan Potassium 1 tab 12/04/18 10:00 Hyzaar - PO DAILY [facility] Heparin Sodium (Porcine) 5,000 unit 12/03/18 22:00 Heparin - SQ TID [facility] Lactated Ringer's 1,000 mls @ 75 mls/hr 12/03/18 08:15 Lactated Ringers Solution IV ASDIR [facility] Cefazolin Sodium/Dextrose 2 gm in 50 mls @ 100 mls/hr 12/03/18 14:45 Ancef 2 Gm Premixed Ivpb - IVPB 12/03/18 23:14 Q8H [facility] Insulin Aspart 1 vial 12/03/18 16:30 Novolog Vial Sliding Scale - SQ ACHS [facility] Protocol Morphine Sulfate 4 mg 12/03/18 13:29 Morphine Sulfate IVPUSH Q4H PRN PAIN LEVEL 7 - 10 Ondansetron HCl 4 mg 12/03/18 08:04 Zofran Injection IVPUSH Q6H PRN NAUSEA AND/OR VOMITING Oxycodone HCl 5 mg 12/03/18 13:28 Roxicodone - PO Q4H PRN PAIN LEVEL 1-5 Oxycodone HCl 10 mg 12/03/18 13:28 Roxicodone - PO Q4H PRN PAIN LEVEL 6-10 ASSESSMENT/PLAN: Patient is a 48 year old male admitted to the ICU s/p left femoral -popliteal bypass. Neuro -Sedated s/p anesthesia -Will assess once patient is more awake. VASCULAR #S/P Left Fem-Pop Bypass Graft -Pain control with Oxycodone 5mg PO Q4 PRN (1-5), Oxycodone 10mg PO Q4 PRN (6-10 ), Morphine 4mg IV Q4 PRN for breakthrough pain and Acetaminophen 650mg PO Q6H PRN -Zofran 4mg IVP Q6H -Will resume ASA and Plavix tomorrow -Continue Atorvastatin 20mg PO HS -Continue Cefazolin 2gm Q8H -Continue IV fluids with LR @75cc/hr -Nuerontin 300mg TID PO -Regular diabetic diet started, as per surgical team -Will begin prophylaxis Heparin tonight, as per surgical team -In bed tonight and OOB tomorrow -Low to be removed tomorrow -PT and ambulation 12/05 -Will monitor pulse checks with doppler Cardiovascular #HTN -Losartan 50 mg/HCTZ 12.5 mg combination pill PO Daily -Amlodipine 5 mg PO Daily -Continue to monitor BP #HLD -Continue Lipitor 20mg po HS Respiratory -No known respiratory issues at this time -incentive spirometry to prevent post-op atelectasis/pneumonia Renal #CKD -With history of MJ -Continue IV Fluids with LR @75cc/hr -Continue to monitor BMP Endocrine #IDDMII with insulin pump and neuropathy -BGM -ISS -Neurontin 300 mg PO TID Infectious Disease #Cellulitis/Induration of the Neck -Started on Cephalexin 500mg TID by his PCP from 11/23-12/11. Will resume Cephalexin once he completes two doses of Cephazolin post operatively. DVT Prophylaxis -Heparin 5000 SQ TID for DVT -No GI required F/E/N -IV Fluids with LR @75cc/hr -Electrolytes wnl -Diabetic diet Disposition -Full code -ICU monitoring overnight Asya Degroot [id number] Visit type - Emergency Visit Emergency Visit: Yes ED Registration Date: 12/03/18 Care time: The patient presented to the Emergency Department on the above date and was hospitalized for further evaluation of their emergent condition. - New Patient This patient is new to me today: Yes Date on this admission: 12/03/18 - Critical Care Critical Care patient: Yes Total Critical Care Time (in minutes): 20
[2018-12-03] MEDS ORDERED: RANITIDINE HCL 150 MG TABLET (FP) PO PRN (15:40)
[2018-12-03] MEDS ORDERED: SENNOSIDES 8.6MG TABLET (FP) PO PRN (15:41)
[2018-12-03] MEDS ORDERED: POLYETHYLENE GLYCOL 3350 119 GM BTL PO PRN (15:42)
[2018-12-03] MEDS: LACTATED RINGERS SOLUTION 1,000 ML/1,000 ML INFUS.BAG IV SCH ×2 (17:34→22:25)
[2018-12-03] MEDS: CEFAZOLIN 2 GM/D5W 2 GM/50 ML ML IVPB SCH (17:36)
[2018-12-03] MEDS ORDERED: ONDANSETRON 4 MG/2 ML VIAL IVPUSH ONE (17:57)
[2018-12-03] MEDS: oxyCODONE HCL 5 MG TABLET PO PRN (20:25)
[2018-12-03] MEDS ORDERED: ACETAMINOPHEN 325 MG TABLET (FP) PO PRN (20:30)
[2018-12-03] MEDS: HEPARIN NA (PORCINE) 5,000 UNITS/ML 1ML VIAL SQ SCH (21:14)
[2018-12-03] MEDS: DOCUSATE SODIUM 100 MG CAPSULE (FP) PO SCH (21:14)
[2018-12-03] MEDS: INSULIN SLIDING SCALE (NOVOLOG) 1 VIAL SQ SCH (21:20)
[2018-12-03] MEDS ORDERED: ATORVASTATIN CA 20 MG TABLET (FP) PO SCH (22:00)
[2018-12-04] MEDS: CEFAZOLIN 2 GM/D5W 2 GM/50 ML ML IVPB SCH (01:35)
[2018-12-04] MEDS: INSULIN SLIDING SCALE (NOVOLOG) 1 VIAL SQ SCH ×4 (06:00→23:17)
[2018-12-04] MEDS: HEPARIN NA (PORCINE) 5,000 UNITS/ML 1ML VIAL SQ SCH ×3 (06:01→21:33)
[2018-12-04] MEDS: GABAPENTIN 300 MG CAPSULE (FP) PO SCH ×3 (06:01→21:33)
[2018-12-04 06:29] LABS: EOS % 0.4 % (0-4.5); HEMATOCRIT 32.5 % (35.4-49); HEMOGLOBIN 11.1 GM/dL (11.7-16.9); LYMPH % 21.5 % (8-40); MCH 28.1 pg (25.7-33.7); MCHC 34.1 g/dl (32.0-35.9); MEAN CELL VOLUME 82.6 fl (80-96); MONO % 7.2 % (3.8-10.2); NEUT % 69.9 % (42.8-82.8); PLATELET COUNT 199 K/MM3 (134-434); RBC 3.93 M/mm3 (4.00-5.60); RDW 16.1 % (11.9-15.9); WHITE BLOOD COUNT 10.2 K/mm3 (4.0-10.0)
[2018-12-04 07:22] LABS: ANION GAP 7 MMOL/L (8-16); BLOOD UREA NITROGEN 22 mg/dL (7-18); CALCIUM 7.8 mg/dL (8.5-10.1); CHLORIDE 102 mmol/L (98-107); CO2 28 mmol/L (21-32); CREATININE 1.3 mg/dL (0.55-1.3); GLUCOSE,RANDOM 237 mg/dL (74-106); MAGNESIUM 1.7 mg/dL (1.8-2.4); PHOSPHOROUS 2.9 mg/dL (2.5-4.9); POTASSIUM 4.4 mmol/L (3.5-5.1); SODIUM 137 mmol/L (136-145)
--- NOTE | 2018-12-04 08:08 | PN ---
Physical Exam: SUBJECTIVE: Patient seen and examined at bedside. No acute events overnight. Denies garcia/d, cp, sob. LE pain improved. Vito PO diet. No other complaints. OBJECTIVE: Vital Signs Period Temp Pulse Resp BP Sys/Ken Pulse Ox Last 24 Hr 98.0 F-98.5 F 73-100 10-26 119-153/70-89 96-100 GENERAL: AAOx3. NAD. Resting comfortably in bed. HEENT: AT/NC. EOMI. BEREKET. MMM. NECK: (-) JVD. LUNGS: Decreased breath sounds b/l. No wheezes/crackles noted. HEART: Regular rate and rhythm, normal S1 and S2 without murmur, rub or gallop. ABDOMEN: Soft, obese, not distended, normoactive bowel sounds, no guarding, no rebound, no masses. No hepatomegaly or splenomegaly. EXTREMITIES: Multiple RLE healed surgical scars. LLE dressing c/d/i. NEUROLOGICAL: Moves all extremities spontaneously. Sensation intact b/l. CBC, BMP 12/04/18 05:15 12/04/18 05:15 Active Medications Acetaminophen (Tylenol -) 650 mg PO Q6H PRN PRN Reason: PAIN OR FEVER Amlodipine Besylate (Norvasc -) 5 mg PO DAILY [facility] Aspirin (Asa -) 81 mg PO DAILY [facility] Atorvastatin Calcium (Lipitor -) 20 mg PO HS [facility] Last Admin: 12/03/18 21:14 Dose: 20 mg Cephalexin HCl (Keflex -) 500 mg PO TID [facility] Clopidogrel Bisulfate (Plavix -) 75 mg PO DAILY [facility] Docusate Sodium (Colace -) 100 mg PO BID [facility] Last Admin: 12/03/18 21:14 Dose: 100 mg Gabapentin (Neurontin -) 300 mg PO TID [facility] Last Admin: 12/04/18 06:01 Dose: 300 mg HCTZ/Losartan Potassium (Hyzaar -) 1 tab PO DAILY [facility] Heparin Sodium (Porcine) (Heparin -) 5,000 unit SQ TID [facility] Last Admin: 12/04/18 06:01 Dose: 5,000 unit Lactated Ringer's (Lactated Ringers Solution) 1,000 ml in 1,000 mls @ 125 mls/ hr IV ASDIR [facility] Last Admin: 12/03/18 22:25 Dose: 125 mls/hr Insulin Aspart (Novolog Vial Sliding Scale -) 1 vial SQ [facility]; Protocol Last Admin: 12/04/18 06:00 Dose: 4 units Morphine Sulfate (Morphine Sulfate) 4 mg IVPUSH Q4H PRN PRN Reason: PAIN LEVEL 7 - 10 Ondansetron HCl (Zofran Injection) 4 mg IVPUSH Q6H PRN PRN Reason: NAUSEA AND/OR VOMITING Last Admin: 12/03/18 13:45 Dose: 4 mg Oxycodone HCl (Roxicodone -) 5 mg PO Q4H PRN PRN Reason: PAIN LEVEL 1-5 Oxycodone HCl (Roxicodone -) 10 mg PO Q4H PRN PRN Reason: PAIN LEVEL 6-10 Last Admin: 12/03/18 20:25 Dose: 10 mg Polyethylene Glycol (Miralax (For Daily Use) -) 17 gm PO DAILY PRN PRN Reason: CONSTIPATION Ranitidine HCl (Zantac -) 150 mg PO DAILY PRN PRN Reason: INDIGESTION Senna (Senna -) 1 tab PO HS PRN PRN Reason: CONSTIPATION ASSESSMENT/PLAN: 48M w/ pmhx of PAD (s/o b/l fem stents, R leg bypass x2), HTN/HLD, IDDMII (on insulin pump), and CKD admitted to the ICU s/p left femoral -popliteal bypass, POD #1. Neuro -Awake and alert, moves all extremities. Vascular #S/P Left Fem-Pop Bypass Graft, POD #1 -Pain control with Oxycodone 5mg PO Q4 PRN (1-5), Oxycodone 10mg PO Q4 PRN (6-10 ), Morphine 4mg IV Q4 PRN for breakthrough pain and Acetaminophen 650mg PO Q6H PRN -Zofran 4mg IVP Q6H -Resume ASA and Plavix 75 QD -Continue Atorvastatin 20mg PO HS -Continue Cefazolin 2gm Q8H -Continue IV fluids with LR @75cc/hr -SQH -OOB, begin PT -Will monitor pulse checks with doppler Cardiovascular #HTN -Losartan 50 mg/HCTZ 12.5 mg combination pill PO QD -Amlodipine 5 mg PO QD -Continue to monitor BP #HLD -Continue Lipitor 20mg po HS Respiratory -No known respiratory issues at this time -IS to prevent post-op atelectasis/pneumonia Renal #CKD -With history of MJ -Continue IV Fluids with LR @75cc/hr -Continue to monitor BMP Endocrine #IDDMII with insulin pump and neuropathy -BGM -ISS -Neurontin 300 mg PO TID Infectious Disease #Cellulitis/Induration of the Neck -Given Cephalexin 500mg TID by his PCP from 11/23-12/11. Pt given Cefazolin x2 doses, now will resume on Cephalexin 500 TID Prophylaxis -DVT: Heparin 5000 SQ TID F/E/N -IV Fluids with LR @75cc/hr -Electrolytes wnl -Diabetic diet Lines -d/c garza Disposition -Full code -ICU monitoring overnight Visit type - Emergency Visit Emergency Visit: Yes ED Registration Date: 12/03/18 Care time: The patient presented to the Emergency Department on the above date and was hospitalized for further evaluation of their emergent condition. - New Patient This patient is new to me today: Yes Date on this admission: 12/04/18 - Critical Care Critical Care patient: Yes Total Critical Care Time (in minutes): 35 Critical Care Statement: The care of this patient involved high complexity decision making to prevent further life threatening deterioration of the patient 's condition and/or to evaluate & treat vital organ system(s) failure or risk of failure.
[2018-12-04] MEDS ORDERED: MAGNESIUM OXIDE 400 MG TABLET (FP) PO ONE (08:10)
[2018-12-04] MEDS: LACTATED RINGERS SOLUTION 1,000 ML/1,000 ML INFUS.BAG IV SCH (08:17)
--- NOTE | 2018-12-04 09:18 | PN ---
Progress Note (short form) - Note Progress Note: Day 1 s/p L fempop under GA. Pain well controlled, had mild nausea yesterday in PACU now resolved. Doing well - no other anesthetic issues/conmplications
[2018-12-04] MEDS ORDERED: CLOPIDOGREL BISULFATE 75 MG TABLET (FP) PO SCH (10:00)
[2018-12-04] MEDS ORDERED: amLODIPine BESYLATE 5 MG TABLET (FP) PO SCH (10:00)
[2018-12-04] MEDS ORDERED: ASPIRIN 81 MG CHEWABLE TABLETS PO SCH (10:00)
[2018-12-04] MEDS ORDERED: LOSARTAN 50MG/HCTZ 12.5MG 1 TAB (FP) PO SCH (10:00)
[2018-12-04] MEDS ORDERED: PT OWN MED DRAWER 7, Y5N ONE ×2 (10:21→14:05)
[2018-12-04] MEDS: DOCUSATE SODIUM 100 MG CAPSULE (FP) PO SCH ×2 (10:24→21:33)
[2018-12-04] MEDS: CEPHALEXIN MONOHYDRATE 500 MG CAPSULE (UD) PO SCH ×3 (10:24→21:32)
--- NOTE | 2018-12-04 10:30 | PN ---
Progress Note (short form) - Note Progress Note: POD 1 VSS Incision clean and dry Foot warm, doppler DP and PT Hgb 11 Stable D/C Low OOB, begin PT OK transfer to floor Problem List - Problems (1) Intermittent claudication of left lower extremity due to atherosclerosis Code(s): I70.212 - ATHSCL IGIUGIG ARTERIES OF EXTRM W INTRMT LIZABETH, LEFT LEG
--- NOTE | 2018-12-04 10:56 | PN ---
Teaching Attending Note Name of Resident: Ethel Alba ATTENDING PHYSICIAN STATEMENT I saw and evaluated the patient. I reviewed the resident's note and discussed the case with the resident. I agree with the resident's findings and plan as documented. SUBJECTIVE: Pt seen and examined in the ICU. No significant pain. Pulses present. No shortness of breath or chest pain. OBJECTIVE: Vital Signs Period Temp Pulse Resp BP Sys/Ken Pulse Ox Last 24 Hr 98.0 F-98.5 F 73-100 10-26 119-153/70-89 96-100 Intake & Output 12/01/18 12/02/18 12/03/18 12/04/18 23:59 23:59 23:59 23:59 Intake Total 5725 1125 Output Total 4150 2500 Balance 1575 -1375 Weight 147.418 kg 151.727 kg Gen: NAD at rest Heart: RRR Lung: decreased breath sounds at the bases Abd: soft, nontender Ext: feet well perfused CBC, BMP 12/04/18 05:15 12/04/18 05:15 Active Medications Acetaminophen (Tylenol -) 650 mg PO Q6H PRN PRN Reason: PAIN OR FEVER Amlodipine Besylate (Norvasc -) 5 mg PO DAILY [facility] Last Admin: 12/04/18 10:23 Dose: 5 mg Aspirin (Asa -) 81 mg PO DAILY [facility] Last Admin: 12/04/18 10:23 Dose: 81 mg Atorvastatin Calcium (Lipitor -) 20 mg PO HS [facility] Last Admin: 12/03/18 21:14 Dose: 20 mg Cephalexin HCl (Keflex -) 500 mg PO TID [facility] Last Admin: 12/04/18 10:24 Dose: 500 mg Clopidogrel Bisulfate (Plavix -) 75 mg PO DAILY [facility] Last Admin: 12/04/18 10:24 Dose: 75 mg Docusate Sodium (Colace -) 100 mg PO BID [facility] Last Admin: 12/04/18 10:24 Dose: 100 mg Gabapentin (Neurontin -) 300 mg PO TID [facility] Last Admin: 12/04/18 06:01 Dose: 300 mg HCTZ/Losartan Potassium (Hyzaar -) 1 tab PO DAILY [facility] Last Admin: 12/04/18 10:23 Dose: 1 tab Heparin Sodium (Porcine) (Heparin -) 5,000 unit SQ TID [facility] Last Admin: 12/04/18 06:01 Dose: 5,000 unit Lactated Ringer's (Lactated Ringers Solution) 1,000 ml in 1,000 mls @ 125 mls/ hr IV ASDIR [facility] Last Admin: 12/04/18 08:17 Dose: 125 mls/hr Insulin Aspart (Novolog Vial Sliding Scale -) [address] [facility]; Protocol Last Admin: 12/04/18 06:00 Dose: 4 units Morphine Sulfate (Morphine Sulfate) 4 mg IVPUSH Q4H PRN PRN Reason: PAIN LEVEL 7 - 10 Ondansetron HCl (Zofran Injection) 4 mg IVPUSH Q6H PRN PRN Reason: NAUSEA AND/OR VOMITING Last Admin: 12/03/18 13:45 Dose: 4 mg Oxycodone HCl (Roxicodone -) 5 mg PO Q4H PRN PRN Reason: PAIN LEVEL 1-5 Oxycodone HCl (Roxicodone -) 10 mg PO Q4H PRN PRN Reason: PAIN LEVEL 6-10 Last Admin: 12/03/18 20:25 Dose: 10 mg Polyethylene Glycol (Miralax (For Daily Use) -) 17 gm PO DAILY PRN PRN Reason: CONSTIPATION Last Admin: 12/04/18 10:27 Dose: 17 grams Ranitidine HCl (Zantac -) 150 mg PO DAILY PRN PRN Reason: INDIGESTION Senna (Senna -) 1 tab PO HS PRN PRN Reason: CONSTIPATION ASSESSMENT AND PLAN: Left Femoral Artery Occlusion with Claudication s/p Left Femoral Popliteal Bypass with Saphenous Vein HTN DM Hyperlipidemia - ASA, plavix - statin - pulse check - pain control - d/c garza - OOB to chair - DVT prophylaxis - can monitor on floor
[2018-12-04] MEDS: oxyCODONE HCL 5 MG TABLET PO PRN (15:20)
[2018-12-04] MEDS ORDERED: RANITIDINE HCL 150 MG TABLET (FP) PO PRN (16:14)
[2018-12-04] MEDS ORDERED: SENNOSIDES 8.6MG TABLET (FP) PO PRN (16:14)
[2018-12-04] MEDS ORDERED: POLYETHYLENE GLYCOL 3350 119 GM BTL PO PRN (16:14)
[2018-12-04] MEDS ORDERED: ACETAMINOPHEN 325 MG TABLET (FP) PO PRN (16:14)
[2018-12-04] MEDS ORDERED: morphine SULFATE 4 MG/ML VIAL IVPUSH PRN (16:14)
[2018-12-04] MEDS ORDERED: oxyCODONE HCL 5 MG TABLET PO PRN (16:14)
[2018-12-04] MEDS ORDERED: INSULIN (NOVOLOG) ASPART 100 UNITS/ML 10ML VIAL SQ ONE (16:14)
[2018-12-04] MEDS ORDERED: ONDANSETRON 4 MG/2 ML VIAL IVPUSH ONE (16:14)
[2018-12-04] MEDS ORDERED: ONDANSETRON 4 MG/2 ML VIAL IVPUSH PRN (16:14)
[2018-12-04] MEDS: ATORVASTATIN CA 20 MG TABLET (FP) PO SCH (21:32)
[2018-12-05] MEDS: HEPARIN NA (PORCINE) 5,000 UNITS/ML 1ML VIAL SQ SCH ×3 (06:26→21:18)
[2018-12-05] MEDS: INSULIN SLIDING SCALE (NOVOLOG) 1 VIAL SQ SCH ×4 (06:27→21:17)
[2018-12-05] MEDS: GABAPENTIN 300 MG CAPSULE (FP) PO SCH ×3 (06:27→21:18)
[2018-12-05] MEDS: CEPHALEXIN MONOHYDRATE 500 MG CAPSULE (UD) PO SCH ×3 (06:27→21:19)
[2018-12-05 07:14] LABS: BASO % 1.1 % (0-2.0); HEMATOCRIT 32.4 % (35.4-49); LYMPH % 26.7 % (8-40); MCH 28.1 pg (25.7-33.7); MCHC 33.8 g/dl (32.0-35.9); MEAN PLT VOLUME 7.8 fl (7.5-11.1); MONO % 9.4 % (3.8-10.2); NEUT % 60.8 % (42.8-82.8); PLATELET COUNT 193 K/MM3 (134-434); RBC 3.91 M/mm3 (4.00-5.60); WHITE BLOOD COUNT 9.2 K/mm3 (4.0-10.0)
[2018-12-05 07:43] LABS: ANION GAP 6 MMOL/L (8-16); BLOOD UREA NITROGEN 18 mg/dL (7-18); CALCIUM 8.2 mg/dL (8.5-10.1); CHLORIDE 98 mmol/L (98-107); CO2 29 mmol/L (21-32); CREATININE 1.2 mg/dL (0.55-1.3); GLUCOSE,RANDOM 248 mg/dL (74-106); POTASSIUM 4.1 mmol/L (3.5-5.1); SODIUM 133 mmol/L (136-145)
[2018-12-05] MEDS: CLOPIDOGREL BISULFATE 75 MG TABLET (FP) PO SCH (09:31)
[2018-12-05] MEDS: amLODIPine BESYLATE 5 MG TABLET (FP) PO SCH (09:31)
[2018-12-05] MEDS: DOCUSATE SODIUM 100 MG CAPSULE (FP) PO SCH ×2 (09:32→21:18)
[2018-12-05] MEDS: ASPIRIN 81 MG CHEWABLE TABLETS PO SCH (09:32)
[2018-12-05] MEDS: LOSARTAN 50MG/HCTZ 12.5MG 1 TAB (FP) PO SCH (09:36)
--- NOTE | 2018-12-05 13:22 | PN ---
Progress Note (short form) - Note Progress Note: POD 2 VSS Left leg: Incision dry Foot warm Hgb stable Stable course Increase activity, physical therapy Problem List - Problems (1) Intermittent claudication of left lower extremity due to atherosclerosis Code(s): I70.212 - ATHSCL INUPIAT ARTERIES OF EXTRM W INTRMT LIZABETH, LEFT LEG
[2018-12-05] MEDS: ATORVASTATIN CA 20 MG TABLET (FP) PO SCH (21:18)
[2018-12-06] MEDS: oxyCODONE HCL 5 MG TABLET PO PRN (01:28)
[2018-12-06] MEDS: HEPARIN NA (PORCINE) 5,000 UNITS/ML 1ML VIAL SQ SCH ×3 (05:55→22:09)
[2018-12-06] MEDS: GABAPENTIN 300 MG CAPSULE (FP) PO SCH ×3 (05:55→22:09)
[2018-12-06] MEDS: CEPHALEXIN MONOHYDRATE 500 MG CAPSULE (UD) PO SCH ×3 (05:55→22:09)
[2018-12-06] MEDS: INSULIN SLIDING SCALE (NOVOLOG) 1 VIAL SQ SCH ×4 (06:26→22:09)
[2018-12-06] MEDS: CLOPIDOGREL BISULFATE 75 MG TABLET (FP) PO SCH (09:13)
[2018-12-06] MEDS: DOCUSATE SODIUM 100 MG CAPSULE (FP) PO SCH ×2 (09:13→22:09)
[2018-12-06] MEDS: LOSARTAN 50MG/HCTZ 12.5MG 1 TAB (FP) PO SCH (09:13)
[2018-12-06] MEDS: amLODIPine BESYLATE 5 MG TABLET (FP) PO SCH (09:13)
[2018-12-06] MEDS: ASPIRIN 81 MG CHEWABLE TABLETS PO SCH (09:13)
--- NOTE | 2018-12-06 09:16 | PN ---
Progress Note (short form) - Note Progress Note: POD#3 Pt states that he is able to ambulate much better with heel/toe walking on the left. No pain issues. Vital Signs Period Temp Pulse Resp BP Sys/Ken Pulse Ox Last 24 Hr 98.1 F-99.3 F 98-118 16-20 110-155/61-89 98 GEN: A&0x3, NAD Left leg: inc c/d/i with leilani. No erythema or drainage noted. Reapplied dry 4x4 gauze/kerlex and tegaderm dressing +2 DP pulse left foot and warm to touch. No calf tenderness. Posterior check: No erythema noted. Small area where tender touch, no fluctuance or drainage noted. CBC, BMP 03/17/19 06:30 03/17/19 06:30 A/P: 48 yo male s/p Left femoral-popliteal bypass with reversed saphenous vein. Angiogram left iliac artery, POD#3 Continue ambulation with Physical Therapy Diet as tolerated Aspirin/plavix daily Keflex for erythema to posterior neck, improved. Warm compresses to the area. Plan for discharge tomorrow, social services manager for discharge planning D/w. Dr. Sorensen
[2018-12-06 12:22] VITALS: BMI 39.8
[2018-12-06] MEDS: ATORVASTATIN CA 20 MG TABLET (FP) PO SCH (22:09)
[2018-12-07] MEDS: oxyCODONE HCL 5 MG TABLET PO PRN ×2 (00:42→10:38)
[2018-12-07] MEDS: HEPARIN NA (PORCINE) 5,000 UNITS/ML 1ML VIAL SQ SCH ×2 (06:35→13:18)
[2018-12-07] MEDS: CEPHALEXIN MONOHYDRATE 500 MG CAPSULE (UD) PO SCH ×2 (06:35→13:18)
[2018-12-07] MEDS: INSULIN SLIDING SCALE (NOVOLOG) 1 VIAL SQ SCH ×3 (06:35→16:22)
[2018-12-07] MEDS: GABAPENTIN 300 MG CAPSULE (FP) PO SCH ×2 (06:35→13:18)
[2018-12-07 07:48] LABS: BASO % 0.7 % (0-2.0); EOS % 3.2 % (0-4.5); HEMATOCRIT 35.2 % (35.4-49); LYMPH % 29.3 % (8-40); MCH 28.3 pg (25.7-33.7); MEAN CELL VOLUME 83.1 fl (80-96); MEAN PLT VOLUME 7.7 fl (7.5-11.1); MONO % 7.9 % (3.8-10.2); NEUT % 58.9 % (42.8-82.8); PLATELET COUNT 248 K/MM3 (134-434); RBC 4.24 M/mm3 (4.00-5.60); RDW 16.1 % (11.9-15.9); WHITE BLOOD COUNT 10.1 K/mm3 (4.0-10.0)
--- NOTE | 2018-12-07 08:04 | PN ---
Progress Note (short form) - Note Progress Note: POD 3 VSS Left leg: Incision dry Foot warm Hgb stable Stable course Home with VNS F/u 1 week in my office. <Tate Sorensen - Last Filed: 12/07/18 10:16> - Note Progress Note: POD#4, s/p Left femoral-popliteal bypass with reversed saphenous vein. Angiogram left iliac artery Pt seen and examined this morning. States he feels well. LLE is "feeling great" . Pt able to ambulate yesterday without issue. Tolerating PO. Had BM this morning. Voiding without issue. Denies cp/sob, n/v/d, calf pain/edema. No pain issues. Vital Signs Temp 99.4 F 12/07/18 08:30 Pulse 108 H 12/07/18 08:30 Resp 18 12/07/18 09:00 BP 137/78 12/07/18 08:30 Pulse Ox 98 12/07/18 09:00 Intake & Output 12/06/18 12/06/18 12/07/18 11:59 23:59 11:59 Intake Total 500 200 Output Total 1000 700 500 Balance -500 -500 -500 Weight 310 lb 311 lb 3.2 oz Intake: IV 0 lh 0 Oral 500 200 Output: Urine 1000 700 500 Void 1000 700 500 Other: Voiding Method Urinal Urinal Urinal Bowel Movement No Height 6 ft 2 in Body Mass Index (BMI) 39.8 Weight Measurement Method Chair Scale CBC, BMP 12/07/18 07:15 12/05/18 06:30 GEN: A&0x3, NAD R neck: Large area of induration R neck with approx 1x1cm area of fluctance centrally. No erythema noted, +TTP. Resp: unlabored on RA. Left leg: incision c/d/i with leilani. No erythema or drainage noted. Reapplied dry 4x4 gauze and tape dressing. Vasc: L foot with trace edema, warm to touch. Callus x 2 at medial aspect of great toe. Palpable dp L foot. Neuro: 5/5 b/l dorsi/plantarflexion, sensation diminished (baseline due to neuropathy per pt). A/P: 48 y/o M w/ PMHx PMHx CKD, obesity, IDDM (on Insulin pump), HTN, HLD, PAD s/p R fem-pop bypass w/ PTFE/fem/pop endarterectomy (09/02/17) c/b infection ( polymicrobial), s/p excision of grafte (09/27/17), s/p R deep femoral to BK pop with RSVG (04/07/18), now POD 4, s/p Left femoral-popliteal bypass with reversed saphenous vein. Angiogram left iliac artery. Tachy to high 90s/low 100s (?pain), remainder of VSS. H/H stable. Discussed aspiration of area of fluctuance at R neck with pt. Pt agreeable. Consent obtained. Skin cleaned with chloroprep. 4ml's 1% Lidocaine administered. Approx 1-2cc of purulent fluid aspirated. Culture sent. Pt tolerated procedure well. -Warm compresses to R neck area -Continue ambulation with Physical Therapy -Diet as tolerated -Aspirin/plavix daily -Complete course of Keflex -Plan for d/c later today D/w. Dr. Sorensen <Emani Isidro - Last Filed: 12/07/18 11:50> Problem List - Problems (1) Intermittent claudication of left lower extremity due to atherosclerosis Code(s): I70.212 - ATHSCL [place] ARTERIES OF EXTRM W INTRMT LIZABETH, LEFT LEG <Tate Sorensen - Last Filed: 12/07/18 10:16>
[2018-12-07] MEDS: ASPIRIN 81 MG CHEWABLE TABLETS PO SCH (09:15)
[2018-12-07] MEDS: DOCUSATE SODIUM 100 MG CAPSULE (FP) PO SCH (09:15)
[2018-12-07] MEDS: amLODIPine BESYLATE 5 MG TABLET (FP) PO SCH (09:15)
[2018-12-07] MEDS: CLOPIDOGREL BISULFATE 75 MG TABLET (FP) PO SCH (09:16)
[2018-12-07] MEDS: LOSARTAN 50MG/HCTZ 12.5MG 1 TAB (FP) PO SCH (09:16)
[2018-12-07] MEDS ORDERED: LIDOCAINE HCL 1%, 10 MG/ML (50 mL VIAL) SQ ONE (09:58)
[2018-12-07] MEDS ORDERED: LIDOCAINE HCL 1%, 10 MG/ML (20ML VIAL) ONE (10:14)
--- NOTE | 2018-12-07 11:51 | DS ---
Physical Exam: SUBJECTIVE: Pt seen and examined this morning. States he feels well. LLE is "feeling great" . Pt able to ambulate yesterday without issue. Tolerating PO. Had BM this morning. Voiding without issue. Denies cp/sob, n/v/d, calf pain/edema. No pain issues. OBJECTIVE: Vital Signs Temperature 99.4 F 12/07/18 08:30 Pulse Rate 108 H 12/07/18 08:30 Respiratory Rate 18 12/07/18 09:00 Blood Pressure 137/78 12/07/18 08:30 O2 Sat by Pulse Oximetry (%) 98 12/07/18 09:00 PHYSICAL EXAM GEN: A&0x3, NAD R neck: Large area of induration R neck with approx 1x1cm area of fluctance centrally. No erythema noted, +TTP. Resp: unlabored on RA. Left leg: incision c/d/i with leilani. No erythema or drainage noted. Reapplied dry 4x4 gauze and tape dressing. Vasc: L foot with trace edema, warm to touch. Callus x 2 at medial aspect of great toe. Palpable dp L foot. Neuro: 5/5 b/l dorsi/plantarflexion, sensation diminished (baseline due to neuropathy per pt). LABS CBC,CMP WBC 10.1 K/mm3 (4.0-10.0) H 12/07/18 07:15 RBC 4.24 M/mm3 (4.00-5.60) 12/07/18 07:15 Hgb 12.0 GM/dL (11.7-16.9) 12/07/18 07:15 Hct 35.2 % (35.4-49) L 12/07/18 07:15 MCV 83.1 fl (80-96) 12/07/18 07:15 MCH 28.3 pg (25.7-33.7) 12/07/18 07:15 MCHC 34.0 g/dl (32.0-35.9) 12/07/18 07:15 RDW 16.1 % (11.9-15.9) H 12/07/18 07:15 Plt Count 248 K/MM3 (134-434) D 12/07/18 07:15 MPV 7.7 fl (7.5-11.1) 12/07/18 07:15 Absolute Neuts (auto) 6.0 K/mm3 (1.5-8.0) 12/07/18 07:15 Neutrophils % 58.9 % (42.8-82.8) 12/07/18 07:15 Lymphocytes % 29.3 % (8-40) 12/07/18 07:15 Monocytes % 7.9 % (3.8-10.2) 12/07/18 07:15 Eosinophils % 3.2 % (0-4.5) 12/07/18 07:15 Basophils % 0.7 % (0-2.0) 12/07/18 07:15 Nucleated RBC % 0 % (0-0) 12/07/18 07:15 Sodium 133 mmol/L (136-145) L 12/05/18 06:30 Potassium 4.1 mmol/L (3.5-5.1) 12/05/18 06:30 Chloride 98 mmol/L (98-107) 12/05/18 06:30 Carbon Dioxide 29 mmol/L (21-32) 12/05/18 06:30 Anion Gap 6 MMOL/L (8-16) L 12/05/18 06:30 BUN 18 mg/dL (7-18) 12/05/18 06:30 Creatinine 1.2 mg/dL (0.55-1.3) 12/05/18 06:30 Creat Clearance w eGFR 64.09 (>60) 12/05/18 06:30 POC Glucometer 318 UNITS (80-120) 12/07/18 11:22 Random Glucose 248 mg/dL (74-106) H 12/05/18 06:30 Calcium 8.2 mg/dL (8.5-10.1) L 12/05/18 06:30 Phosphorus 2.9 mg/dL (2.5-4.9) 12/04/18 05:15 Magnesium 1.7 mg/dL (1.8-2.4) L 12/04/18 05:15 Total Bilirubin 0.4 mg/dL (0.2-1) 12/03/18 06:42 AST 11 U/L (15-37) L 12/03/18 06:42 ALT 26 U/L (13-61) 12/03/18 06:42 Alkaline Phosphatase 214 U/L (45-117) H 12/03/18 06:42 Total Protein 7.2 g/dl (6.4-8.2) 12/03/18 06:42 Albumin 3.4 g/dl (3.4-5.0) 12/03/18 06:42 HOSPITAL COURSE: Date of Admission:12/03/18 Date of Discharge: 12/07/18 The patient was admitted to the [facility] after an elective repair for his peripheral arterial disease. Now, s/p Left femoral-popliteal bypass with reversed saphenous vein, Angiogram left iliac artery on 12/03. Rachel-operative IV ABX were administered.The patient was monitored in ICU overnight. Neurovascular checks remained stable and pain was well controlled with narcotic and non- narcotic pain management. Low was removed POD 1, pt was transferred to the surgical floor. DVT prophylaxis was achieved with SCDs, Heparin SQ TID, and early ambulation. Dressing was changed and wound remained stable and intact. Pt had needle aspiration bedside of a R neck abscess and Keflex PO which was initiated preop by the patients PCP was continued upon discharge. The patient ambulated with Physical Therapy and no services were recommended upon discharge. Narcotic scripts were checked with [facility] prior to e-scribe. The discharge instructions and an oral pain management plan were reviewed with the patient. All questions answered. Above plan discussed with Dr. Sorensen and agreed. Minutes to complete discharge: 15 Visit type - Case Type Case Type: Scheduled - Emergency Emergency Visit: No - New patient This patient is new to me today: Yes Date on this admission: 12/09/18 - Critical Care Critical Care patient: No
[2018-12-07 14:40] VITALS: BP 131/74; PULSE 98; TEMP 98.5
[2018-12-07] MEDS ORDERED: INSULIN (NOVOLOG) ASPART 100 UNITS/ML 10ML VIAL ONE (17:01)
== END 2018-12-07 17:22 | disposition home or self-care (01) | DRG 253 ==
LOC: JSAMEDAYSX 05:22 → JICU 17:05 → J7W 12-04 14:44
PROVIDERS: ADMIT Surgery; ATTEND Surgery
PROC: 061 Lower Veins, Bypass (ICD-10-PCS; 2018-12-03)
PROC: B40GYZZ Plain Radiography of Left Lower Extremity Arteries using Other Contrast (ICD-10-PCS; 2018-12-03)
PROC: 04CL0ZZ Extirpation of Matter from Left Femoral Artery, Open Approach (ICD-10-PCS; principal; 2018-12-03 08:00)
DX: I70.212 Atherosclerosis of native arteries of extremities with intermittent claudication, left leg (principal); Z68.41 Body mass index [BMI] 40.0-44.9, adult; L03.221 Cellulitis of neck; E11.51 Type 2 diabetes mellitus with diabetic peripheral angiopathy without gangrene; E78.5 Hyperlipidemia, unspecified; E66.01 Morbid (severe) obesity due to excess calories; I12.9 Hypertensive chronic kidney disease with stage 1 through stage 4 chronic kidney disease, or unspecified chronic kidney disease; E11.22 Type 2 diabetes mellitus with diabetic chronic kidney disease; N18.9 Chronic kidney disease, unspecified; E11.40 Type 2 diabetes mellitus with diabetic neuropathy, unspecified; Z87.891 Personal history of nicotine dependence; Z79.4 Long term (current) use of insulin
CPT/HCPCS: 36415; 71046-TC-FY; 76000-TC-FY; 80048; 80053; 82962; 83735; 84100; 85025; 85027; 85610; 86850; 86900; 86901; 87070; 87205; 94010; 94760; 97116-GP; 97161-GP; J1644

== ENCOUNTER 2020-03-06 15:44 | Inpatient (IN) | payer OTHER ==
--- NOTE | 2020-03-06 16:12 | PDOC ---
Rapid Medical Evaluation Time Seen by Provider: 03/06/20 16:08 Medical Evaluation: Allergies Allergy/AdvReac Type Severity Reaction Status Date / Time No Known Allergies Allergy Verified 12/02/18 12:38 03/06/20 16:09 Pt presents for a non-healing ischemic ulser to the L lower leg. Sent by Dr. Sorensen for graft revision on the L leg. Exam: Unable to palpate distal pulses of the LLE, warm Orders: pre-op labs Pt to proceed to the ER for further evaluation Discharge Disposition - Diagnosis Leg pain, left - Referrals - Patient Instructions - Post Discharge Activity
--- NOTE | 2020-03-06 16:39 | PDOC ---
History of Present Illness - General Chief Complaint: Pain Stated Complaint: LT LEG PAIN Time Seen by Provider: 03/06/20 16:08 History Source: Patient - History of Present Illness Initial Comments: 03/06/20 18:41 49M w/hx IDDM w/peripheral neuropathy, HTN, peripheral vascular disease sent by Dr. Sorensen for admission for graft revision. He denies any fevers, chills, weakness, confusion, nausea, vomiting, chest pain, sob. He reports bilateral LE bypass grafts [address] Sorensen. LLE graft site was planned for revision after wound site developed ulceration, ultimately delayed due to COVID- 19 pandemic. He presented for follow up with Dr. Sorensen today who evaluated him in the clinic, and transferred him to [facility] ED for admission for graft revision. Past History - Medical History Allergies/Adverse Reactions: Allergies Allergy/AdvReac Type Severity Reaction Status Date / Time No Known Allergies Allergy Verified 03/06/20 16:26 Home Medications: Ambulatory Orders Insulin Pump Syringe, 1.8 ml [Thinset] 1 each MC DAILY 10/21/16 Aspirin [ASA -] 81 mg PO DAILY #30 tab.chew 03/04/18 Atorvastatin Ca [Lipitor] 20 mg PO HS #30 tablet 03/04/18 Clopidogrel Bisulfate [Plavix -] 75 mg PO DAILY #30 tablet 03/04/18 Gabapentin [Neurontin -] 300 mg PO TID #30 capsule 03/04/18 Amlodipine Besylate 5 mg PO DAILY 04/07/18 Acetaminophen [Tylenol .Regular Strength -] 650 mg PO Q6H PRN tablet 04/12/18 Docusate Sodium [Colace -] 100 mg PO BID #14 capsule 12/07/18 Losartan 50Mg/Hctz 12.5MG [Hyzaar -] 1 tab PO DAILY tablet 12/07/18 Anemia: No Asthma: No Cancer: No Cardiac Disorders: No CVA: No COPD: No CHF: No DVT: No (rt leg, has stent) Dementia: No Diabetes: Yes GI Disorders: No Disorders: No HTN: Yes Hypercholesterolemia: Yes Liver Disease: No Seizures: No Thyroid Disease: No - Surgical History Abdominal Surgery: No Appendectomy: No Cardiac Surgery: No Cholecystectomy: No Lung Surgery: Yes (lung tumor removed at age 6 months) Neurologic Surgery: No Orthopedic Surgery: Yes (LFT carpal tunnel ,LFT rotator muscles) - Immunization History Immunization Up to Date: Yes - Psycho-Social/Smoking History Smoking History: Current every day smoker Have you smoked in the past 12 months: Yes Number of Cigarettes Smoked Daily: 0 If you are a former smoker, when did you quit?: 10/2014 Information on smoking cessation initiated: No 'Breaking Loose' booklet given: 02/01/14 - Substance Abuse Hx (Audit-C & DAST Scrn) How often the patient has a drink containing alcohol: Never Score: In Men: 4 or > Positive; In Women: 3 or > Positive: 0 Screen Result (Pos requires Nsg. Audit-10AR): Negative In the last yr the pt used illegal drug/Rx for NonMed reason: Yes Score: Yes response is considered Positive: 1 Screen Result (Positive result requires Nsg. DAST-10): Positive Review of Systems - Review of Systems Able to Perform ROS?: Yes Comments:: GENERAL/CONSTITUTIONAL: No fever or chills. No weakness. HEAD, EYES, EARS, NOSE AND THROAT: No change in vision. No ear pain or discharge. No sore throat. CARDIOVASCULAR: No chest pain or shortness of breath RESPIRATORY: No cough, wheezing, or hemoptysis. GASTROINTESTINAL: No nausea, vomiting, diarrhea or constipation. GENITOURINARY: No dysuria, frequency, or change in urination. MUSCULOSKELETAL: No joint or muscle swelling or pain. No neck or back pain. SKIN: Worsening RLE lesion at surgical site. No rash NEUROLOGIC: No headache, vertigo, loss of consciousness, or change in strength/sensation. ENDOCRINE: No increased thirst. No abnormal weight change HEMATOLOGIC/LYMPHATIC: No anemia, easy bleeding, or history of blood clots. ALLERGIC/IMMUNOLOGIC: No hives or skin allergy. *Physical Exam - Vital Signs Last Vital Signs Temp Pulse Resp BP Pulse Ox 99 F 108 H 20 106/69 98 03/06/20 16:09 03/06/20 16:09 03/06/20 16:09 03/06/20 16:09 03/06/20 16:09 - Physical Exam GENERAL: Awake, alert, and fully oriented, in no acute distress HEAD: No signs of trauma, normocephalic, atraumatic EYES: PERRLA, EOMI, sclera anicteric, conjunctiva clear ENT: Auricles normal inspection, hearing grossly normal, nares patent, oropharynx clear without exudates. Moist mucosa NECK: Normal ROM, supple, no lymphadenopathy, JVD, or masses LUNGS: No distress, speaks full sentences, clear to auscultation bilaterally HEART: Regular rate and rhythm, normal S1 and S2, no murmurs, rubs or gallops, peripheral pulses normal and equal bilaterally. ABDOMEN: Soft, nontender, normoactive bowel sounds. No guarding, no rebound. No masses EXTREMITIES : Normal inspection, Normal range of motion, no edema. No clubbing or cyanosis NEUROLOGICAL: Cranial nerves II through XII grossly intact. Normal speech, normal gait, no focal sensorimotor deficits SKIN: Large patch of granular tissue at RLE, nontender to palpation, no overlying erythema or active bleeding or drainage. ED Treatment Course - LABORATORY CBC & Chemistry Diagram: 03/17/20 07:15 03/17/20 07:15 Medical Decision Making - Medical Decision Making 49M w/hx IDDM w/peripheral neuropathy, HTN, peripheral vascular disease sent by Dr. Sorensen for admission for graft revision. Plan: CBC CMP EKG CXR PT/INR, APTT Type and screen Cardiac profile CTA RLE Dispo: Admit 03/06/20 17:38 Cr 1.6 EGFR 56. Discussed with patient re: risks/benefits of contrast study and possible kidney injury. Plan for CTA, benefits of study outweigh risk of potential kidney injury. --- Case discussed with inpatient team. Patient admitted. Discharge - Discharge Information Problems reviewed: Yes Clinical Impression/Diagnosis: Leg pain, left, PVD (peripheral vascular disease) Post op infection Qualifiers: Encounter type: initial encounter Postoperative infection type: superficial incisional surgical site Qualified Code(s): T81.41XA - Infection following a procedure, superficial incisional surgical site, initial encounter Condition: Stable - Admission Yes - Follow up/Referral - Patient Discharge Instructions - Post Discharge Activity
[2020-03-06 16:44] LABS: BASO % 0.6 % (0-2.0); EOS % 4.2 % (0-4.5); HEMOGLOBIN 12.3 GM/dL (11.7-16.9); LYMPH % 28.2 % (8-40); MCH 26.5 pg (25.7-33.7); MCHC 32.3 g/dl (32.0-35.9); MEAN CELL VOLUME 82.2 fl (80-96); MEAN PLT VOLUME 7.5 fl (7.5-11.1); MONO % 9.3 % (3.8-10.2); NEUT % 57.7 % (42.8-82.8); PLATELET COUNT 234 K/MM3 (134-434); RBC 4.63 M/mm3 (4.00-5.60); RDW 15.1 % (11.9-15.9); WHITE BLOOD COUNT 7.9 K/mm3 (4.0-10.0)
[2020-03-06 16:54] LABS: INR 1.01 (0.83-1.09); PROTHROMBIN TIME (PATIENT) 11.9 SEC (9.7-13.0)
[2020-03-06 17:15] LABS: ALBUMIN 2.9 g/dl (3.4-5.0); BILIRUBIN,TOTAL 0.4 mg/dL (0.2-1); BLOOD UREA NITROGEN 23.6 mg/dL (7-18); CALCIUM 8.5 mg/dL (8.5-10.1); CREATININE 1.6 mg/dL (0.55-1.3); POTASSIUM 4.1 mmol/L (3.5-5.1); TOT PROT 6.4 g/dl (6.4-8.2)
--- NOTE | 2020-03-06 17:29 | PDOC ---
Documentation entered by Shira Flynn SCRIBE, acting as scribe for Alvina Barker MD. Alvina Barker MD: This documentation has been prepared by the johnibchepe, Shira Arreola SCRIBE, under my direction and personally reviewed by me in its entirety. I confirm that the documentation accurately reflects all work, treatment, procedures, and medical decision making performed by me. Attending Attestation - Resident Resident Name: YiAlonso - ED Attending Attestation I have performed the following: I have examined & evaluated the patient, The case was reviewed & discussed with the resident, I agree w/resident's findings & plan, Exceptions are as noted - HPI HPI: 03/06/20 17:06 The patient is a 49 year old male with a significant past medical history of HTN, HLD and DM, who presents to the emergency department non-healing ischemic ulcer to the L lower leg. Dr. Sorensen sent him in for admission for a graft revision. 03/06/20 17:23 wnwd 49 yo male with PMH DM,peripheral neuropathy who had a nonhealing 2 cm ulcer bypass graft that requires revision - Physicial Exam PE: 03/06/20 17:26 wnwd 49 yo male presents to Ed for admission by Dr Sorensen for graft revision head ncat neck supple 'ungs cta b/l cvs [id number] abd nontender extremities 2+ LE neuro axox3 - Medical Decision Making 03/06/20 17:29 cxr napd this pt was evaluated by Dr Sorensen in the office earlier today cbc wnl chemistries show renal insufficiency admitted to med/surg for graft revision 03/06/20 17:29 03/06/20 18:54 03/06/20 19:35 doppler US: NO DVT, but thrombus in L saphenous vein 03/06/20 22:07 Discharge - Discharge Information Problems reviewed: Yes Clinical Impression/Diagnosis: Leg pain, left, PVD (peripheral vascular disease) Post op infection Qualifiers: Encounter type: initial encounter Postoperative infection type: superficial incisional surgical site Qualified Code(s): T81.41XA - Infection following a procedure, superficial incisional surgical site, initial encounter Condition: Stable - Follow up/Referral - Patient Discharge Instructions - Post Discharge Activity
--- NOTE | 2020-03-06 17:30 | PDOC ---
*Physical Exam - Vital Signs Last Vital Signs Temp Pulse Resp BP Pulse Ox 99 F 108 H 20 106/69 98 03/06/20 16:09 03/06/20 16:09 03/06/20 16:09 03/06/20 16:09 03/06/20 16:09 - Physical Exam General Appearance: Yes: Nourished, Obese HEENT: positive: Normal Voice, Hearing Grossly Normal Neck: positive: Trachea midline, Supple Gastrointestinal/Abdominal: positive: Soft. 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7 Lymphocytes % 28.2 Monocytes % 9.3 Eosinophils % 4.2 Basophils % 0.6 Medical Decision Making - Medical Decision Making 03/06/20 17:29 Patient seen as pre-attending with Dr. Richmond (PGY-I) and Dr. Barker (Attending) 49 y/o male with a PMHx of HTN, HLD, IDDM, PVD (w/chronic venous stasis ulcers, s/p graft repair in RLE in 2017, LLE in 2018), Peripheral neuropathy here with LLE pain. Pain associated with LLE ulcer that patient states that started two months ago and has been increasing in size. Also reports RLE swelling that has been worsening over the last few weeks Denies any fevers/chills, shortness of breath, abdominal pain, chest pain. As per EMR, Dr. Buck (vascular surgery) requesting surgical intervention. Will obtain pre-op labs, also RLE ultrasound to evaluate for clot. PE as documented in PE section of EMR In addition to ultrasound, plan for labs, EKG, CXR and admission. 03/06/20 18:55 Cr 1.6 - will hydrate 03/06/20 18:57 Patient @ ultrasound Patient signed out to Dr. Hall for admission by Dr. Richmond Clinical Impression: RLE ulcer requiring vascular graft revision Discharge - Discharge Information Problems reviewed: Yes Clinical Impression/Diagnosis: Leg pain, left, PVD (peripheral vascular disease) Post op infection Qualifiers: Encounter type: initial encounter Postoperative infection type: superficial incisional surgical site Qualified Code(s): T81.41XA - Infection following a pro cedure, superficial incisional surgical site, initial encounter Condition: Stable - Admission Yes - Follow up/Referral - Patient Discharge Instructions - Post Discharge Activity
[2020-03-06] MEDS ORDERED: PIPERACILLIN/TAZOB 4.5 GM 4.5 GM in DEXTROSE 5%-WATER 100 ML IVPB ONE (17:55)
[2020-03-06] MEDS ORDERED: ACETAMINOPHEN 1000 MG/100 ML VIAL (NON FORMULARY) IVPB ONE (18:06)
[2020-03-06] MEDS ORDERED: ACETAMINOPHEN INJECTION 100 ML IVPB ONE (18:21)
[2020-03-06] MEDS ORDERED: PIPERACILLIN/TAZOB 4.5 GM 4.5 GM/100 ML BAG IVPB ONE (18:22)
[2020-03-06] MEDS ORDERED: LACTATED RINGERS SOLUTION 1000 ML INFUS.BAG IV ONE (18:56)
[2020-03-07 00:28] VITALS: BMI 44.0
[2020-03-07] MEDS ORDERED: FLU VACCINE QUAD 60 MCG/0.5 ML (MDV 19-20) IM ONE (00:28)
[2020-03-07] MEDS ORDERED: PIPERACILLIN/TAZOBACTAM 3.375 GM VIAL IVPB ONE ×3 (01:01→16:20)
[2020-03-07] MEDS ORDERED: DEXTROSE 5%-WATER - 50 ML IVPB ONE ×3 (01:02→16:20)
[2020-03-07] MEDS: PIPERACILLIN/TAZOB 3.375 GM 3.375 GM in DEXTROSE 5%-WATER - 50 ML IVPB SCH ×3 (02:00→17:17)
[2020-03-07] MEDS ORDERED: PIPERACILLIN/TAZOB 3.375 GM 3.375 GM in DEXTROSE 5%-WATER - 50 ML IVPB SCH (02:00)
[2020-03-07] MEDS ORDERED: morphine SULFATE 4 MG/ML VIAL IVPUSH ONE (02:15)
[2020-03-07] MEDS: GABAPENTIN 300 MG CAPSULE PO SCH ×3 (05:49→21:12)
[2020-03-07] MEDS: INSULIN SLIDING SCALE (NOVOLOG) 1 VIAL SQ SCH ×4 (06:06→21:13)
[2020-03-07 08:27] LABS: BASO % 0.4 % (0-2.0); EOS % 5.1 % (0-4.5); HEMATOCRIT 35.9 % (35.4-49); HEMOGLOBIN 11.6 GM/dL (11.7-16.9); LYMPH % 30.6 % (8-40); MCH 26.3 pg (25.7-33.7); MCHC 32.3 g/dl (32.0-35.9); MEAN CELL VOLUME 81.3 fl (80-96); MEAN PLT VOLUME 7.4 fl (7.5-11.1); MONO % 10.3 % (3.8-10.2); NEUT % 53.6 % (42.8-82.8); PLATELET COUNT 222 K/MM3 (134-434); RBC 4.42 M/mm3 (4.00-5.60); WHITE BLOOD COUNT 8.7 K/mm3 (4.0-10.0)
[2020-03-07 08:47] LABS: ALBUMIN 2.7 g/dl (3.4-5.0); BILIRUBIN,TOTAL 0.4 mg/dL (0.2-1); BLOOD UREA NITROGEN 18.4 mg/dL (7-18); CALCIUM 8.7 mg/dL (8.5-10.1); CREATININE 1.3 mg/dL (0.55-1.3); POTASSIUM 3.7 mmol/L (3.5-5.1)
[2020-03-07] MEDS: HEPARIN NA (PORCINE) 5,000 UNITS/ML 1ML VIAL SQ SCH ×2 (09:09→21:13)
[2020-03-07] MEDS: DOCUSATE SODIUM 100 MG CAPSULE (FP) PO SCH ×2 (09:09→21:13)
[2020-03-07] MEDS: amLODIPine BESYLATE 5 MG TABLET (FP) PO SCH (09:09)
[2020-03-07] MEDS: ASPIRIN 81 MG CHEWABLE TABLETS PO SCH (09:09)
[2020-03-07] MEDS: LOSARTAN 50MG/HCTZ 12.5MG 1 TAB (FP) PO SCH (09:09)
[2020-03-07] MEDS: CLOPIDOGREL BISULFATE 75 MG TABLET (FP) PO SCH (09:09)
[2020-03-07] MEDS: INSULIN PUMP NR SCH (09:13)
[2020-03-07] MEDS: [UNRECOGNIZED DRUG - OTHER] NR SCH (09:13)
--- NOTE | 2020-03-07 10:18 | CONSULT ---
Consult - text type - Consultation Consultation Note: Mr. Gonzalez is a 49 year old man with DN vascular disease who has required multiple bypass procedures on both legs for limb salvage. He underwent a left fem-pop bypass in 2019. He developed recurrent leg pain several months ago but did not seek medical care and the graft thrombosed. He was scheduled for redo surgery but deferred due to COVID 19 crisis and now developed a wound on the left calf with severe rest pain. He finally presented to my office yesterday. CTA shows occlusion of the bypass with below knee popliteal patent. A redo bypass is needed. Cardiology evaluation preop and vein mapping to identify conduit for the surgery.
[2020-03-07] MEDS: SILVER SULFADIAZINE 1% TOP CREAM 50 GM JAR TP SCH (11:35)
[2020-03-07] MEDS: morphine SULFATE 4 MG/ML VIAL IVPUSH PRN (11:35)
--- NOTE | 2020-03-07 12:21 | CON.CARD ---
Consult Consult Specialty:: Cardiology Referred by:: Medicine Reason for Consultation:: preop - History of Present Illness Chief Complaint: preop History of Present Illness: 49M h/o HTN, HLD, DM p/w nonhealing ischemic ulcer to L lower leg, sees Dr. Sorensen, has planned graft revision. No chest pain, palps dizziness, dyspnea. Sees Dr. Crani for cardio. No prior cardiac conditions, says he had echo and nuclear stress test within the last year prior to another surgery at Dr. Crain's office and was told it was normal. - Past Medical History Cardio/Vascular: Yes: HTN, Hyperlipdemia, Other (PAD) Gastrointestinal: Yes: Other (Obesity) Renal/: Yes: Renal Inusuff. 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 History of Recent Travel: Yes ([place] 2 weeks ago) Home Medications - Allergies Allergies/Adverse Reactions: Allergies Allergy/AdvReac Type Severity Reaction Status Date / Time No Known Allergies Allergy Verified 03/06/20 16:26 - Home Medications Home Medications: Ambulatory Orders Insulin Pump Syringe, 1.8 ml [Thinset] 1 each MC DAILY 10/21/16 Aspirin [ASA -] 81 mg PO DAILY #30 tab.chew 03/04/18 Atorvastatin Ca [Lipitor] 20 mg PO HS #30 tablet 03/04/18 Clopidogrel Bisulfate [Plavix -] 75 mg PO DAILY #30 tablet 03/04/18 Gabapentin [Neurontin -] 300 mg PO TID #30 capsule 03/04/18 Amlodipine Besylate 5 mg PO DAILY 04/07/18 Acetaminophen [Tylenol .Regular Strength -] 650 mg PO Q6H PRN tablet 04/12/18 Docusate Sodium [Colace -] 100 mg PO BID #14 capsule 12/07/18 Losartan 50Mg/Hctz 12.5MG [Hyzaar -] 1 tab PO DAILY tablet 12/07/18 Family Medical History Family History: Unremarkable Review of Systems - Review of Systems Constitutional: reports: No Symptoms Eyes: reports: No Symptoms HENT: reports: No Symptoms Neck: reports: No Symptoms Cardiovascular: reports: No Symptoms Respiratory: reports: No Symptoms Gastrointestinal: reports: No Symptoms Genitourinary: reports: No Symptoms Musculoskeletal: reports: No Symptoms Integumentary: reports: No Symptoms Neurological: reports: No Symptoms Endocrine: reports: No Symptoms Hematology/Lymphatic: reports: No Symptoms Psychiatric: reports: No Symptoms Vital Signs: Vital Signs Temperature 98 F 03/07/20 08:27 Pulse Rate 97 H 03/07/20 08:27 Respiratory Rate 18 03/07/20 09:00 Blood Pressure 151/90 03/07/20 08:27 O2 Sat by Pulse Oximetry (%) 100 03/07/20 09:00 Constitutional: Yes: No Distress, Calm Eyes: Yes: Conjunctiva Clear, EOM Intact HENT: Yes: Atraumatic, Normocephalic Neck: Yes: Supple, Trachea Midline Respiratory: Yes: Regular, CTA Bilaterally Gastrointestinal: Yes: Normal Bowel Sounds, Soft Cardiovascular: Yes: Regular Rate and Rhythm JVD: No Heart Sounds: Yes: S1, S2 Musculoskeletal: No: Back Pain Edema: No Neurological: Yes: Alert, Oriented Psychiatric: No: Agitated - Other Data Labs, Other Data: CBC, BMP 03/07/20 07:58 03/07/20 07:58 INR, PTT INR 1.01 (0.83-1.09) 03/06/20 16:35 Assessment/Plan EKG sinus, IRBBB, no ischemic changes CXR: no acute process preop evaluation, PAD, leg pain - plan revision of lle fem-pop bypass - EKG stable, asymptomatic - reportedly had recent nuclear stress and echo within the last year prior to another surgery that were unremarkable with Dr. Crain - would obtain reports. if benign findings, no further testing prior to surgery HTN - cont home meds HLD - cont statin DM - manage per primary
--- NOTE | 2020-03-07 12:42 | EKG ---
Test Reason : Blood Pressure : / mmHG Vent. Rate : 103 BPM Atrial Rate : 103 BPM P-R Int : 154 ms QRS Dur : 092 ms QT Int : 364 ms P-R-T Axes : 067 -18 047 degrees QTc Int : 476 ms SINUS TACHYCARDIA POSSIBLE LEFT ATRIAL ENLARGEMENT INCOMPLETE RIGHT BUNDLE BRANCH BLOCK BORDERLINE ECG WHEN COMPARED WITH ECG OF 29-JUL-2018 19:58, NO SIGNIFICANT CHANGE WAS FOUND Confirmed by MD SUNITA, DESTINY ([id number]) on 03/07/2020 12:42:30 PM Referred By: Confirmed By:DESTINY DORSEY MD
--- NOTE | 2020-03-07 13:04 | PN ---
Progress Note, Physician - Current Medication List Current Medications: Active Medications Amlodipine Besylate (Norvasc -) 5 mg PO DAILY [facility] Last Admin: 03/07/20 09:09 Dose: 5 mg Documented by: Aspirin (Asa -) 81 mg PO DAILY [facility] Last Admin: 03/07/20 09:09 Dose: 81 mg Documented by: Atorvastatin Calcium (Lipitor -) 20 mg PO [facility] Clopidogrel Bisulfate (Plavix -) 75 mg PO DAILY [facility] Last Admin: 03/07/20 09:09 Dose: 75 mg Documented by: Docusate Sodium (Colace -) 100 mg PO BID [facility] Last Admin: 03/07/20 09:09 Dose: 100 mg Documented by: Gabapentin (Neurontin -) 300 mg PO TID [facility] Last Admin: 03/07/20 05:49 Dose: 300 mg Documented by: HCTZ/Losartan Potassium (Hyzaar -) 1 tab PO DAILY [facility] Last Admin: 03/07/20 09:09 Dose: 1 tab Documented by: Heparin Sodium (Porcine) (Heparin -) 5,000 unit SQ BID [facility] Last Admin: 03/07/20 09:09 Dose: 5,000 unit Documented by: Piperacillin Sod/Tazobactam (Sod 3.375 gm/ Dextrose) 50 mls @ 100 mls/hr IVPB Q8H-IV [facility]; Protocol Piperacillin Sod/Tazobactam (Sod 3.375 gm/ Dextrose) 50 mls @ 100 mls/hr IVPB Q8H-IV [facility]; Protocol Stop: 03/07/20 18:29 Last Admin: 03/07/20 09:09 Dose: 100 mls/hr Documented by: Influenza Virus Vaccine Quadrival (Flulaval Quad ) 60 mcg IM .ONCE ONE Stop: 03/07/20 00:29 Insulin Aspart (Novolog Vial Sliding Scale -) 1 vial SQ [facility]; Protocol Last Admin: 03/07/20 11:22 Dose: 4 units Documented by: Morphine Sulfate (Morphine Sulfate) 4 mg IVPUSH Q6H PRN PRN Reason: PAIN LEVEL 6-10 Last Admin: 03/07/20 11:35 Dose: 4 mg Documented by: Non-Formulary Medication (Insulin Pump Syringe, 1.8 Ml [Thinset]) 1 each NR DAILY [facility] Last Admin: 03/07/20 09:13 Dose: Not Given Documented by: Silver Sulfadiazine (Silvadene -) 1 applic TP DAILY [facility] Last Admin: 03/07/20 11:35 Dose: 1 applic Documented by: - Objective Vital Signs: Vital Signs Temperature 98 F 03/07/20 08:27 Pulse Rate 97 H 03/07/20 08:27 Respiratory Rate 18 03/07/20 09:00 Blood Pressure 151/90 03/07/20 08:27 O2 Sat by Pulse Oximetry (%) 100 03/07/20 09:00 Labs: CBC, BMP 03/07/20 07:58 03/07/20 07:58 INR, PTT INR 1.01 (0.83-1.09) 03/06/20 16:35
[2020-03-07] MEDS: ATORVASTATIN CA 20 MG TABLET (FP) PO SCH (21:12)
[2020-03-08] MEDS: GABAPENTIN 300 MG CAPSULE PO SCH ×3 (05:47→21:23)
[2020-03-08] MEDS: INSULIN SLIDING SCALE (NOVOLOG) 1 VIAL SQ SCH ×4 (06:25→21:24)
[2020-03-08] MEDS: DOCUSATE SODIUM 100 MG CAPSULE (FP) PO SCH ×2 (09:08→21:23)
[2020-03-08] MEDS: CLOPIDOGREL BISULFATE 75 MG TABLET (FP) PO SCH (09:08)
[2020-03-08] MEDS: SILVER SULFADIAZINE 1% TOP CREAM 50 GM JAR TP SCH (09:08)
[2020-03-08] MEDS: [UNRECOGNIZED DRUG - OTHER] NR SCH (09:08)
[2020-03-08] MEDS: ASPIRIN 81 MG CHEWABLE TABLETS PO SCH (09:08)
[2020-03-08] MEDS: HEPARIN NA (PORCINE) 5,000 UNITS/ML 1ML VIAL SQ SCH ×2 (09:08→21:23)
[2020-03-08] MEDS: amLODIPine BESYLATE 5 MG TABLET (FP) PO SCH (09:08)
[2020-03-08] MEDS: INSULIN PUMP NR SCH (09:08)
[2020-03-08] MEDS: LOSARTAN 50MG/HCTZ 12.5MG 1 TAB (FP) PO SCH (09:12)
[2020-03-08] MEDS ORDERED: INSULIN (NOVOLOG) ASPART 100 UNITS/ML 10ML VIAL ONE (11:03)
--- NOTE | 2020-03-08 11:45 | PN ---
Progress Note (short form) - Note Progress Note: s: no cp sob palps dizzy Current Medications Generic Name Dose Route Start Last Admin Trade Name Freq PRN Reason Stop Dose Admin Amlodipine Besylate 5 mg 03/07/20 10:00 03/08/20 09:08 Norvasc - PO 5 mg DAILY [place] Administration Aspirin 81 mg 03/07/20 10:00 03/08/20 09:08 Asa - PO 81 mg DAILY [place] Administration Atorvastatin Calcium 20 mg 03/07/20 22:00 03/07/20 21:12 Lipitor - PO 20 mg HS [place] Administration Clopidogrel Bisulfate 75 mg 03/07/20 10:00 03/08/20 09:08 Plavix - PO 75 mg DAILY [place] Administration Docusate Sodium 100 mg 03/07/20 10:00 03/08/20 09:08 Colace - PO 100 mg BID [place] Administration Gabapentin 300 mg 03/07/20 06:00 03/08/20 05:47 Neurontin - PO 300 mg TID [place] Administration HCTZ/Losartan Potassium 1 tab 03/07/20 10:00 03/08/20 09:12 Hyzaar - PO 1 tab DAILY [place] Administration Heparin Sodium (Porcine) 5,000 unit 03/07/20 10:00 03/08/20 09:08 Heparin - SQ 5,000 unit BID [place] Administration Piperacillin Sod/Tazobactam 50 mls @ 100 mls/hr 03/07/20 02:00 Sod 3.375 gm/ Dextrose IVPB Q8H-IV [place] Protocol Influenza Virus Vaccine Quadrival 60 mcg 03/07/20 00:28 Flulaval Quad [id number] IM 03/07/20 00:29 .ONCE ONE Insulin Aspart 1 vial 03/07/20 07:00 03/08/20 11:05 Novolog Vial Sliding Scale - SQ 8 units ACHS [place] Administration Protocol Morphine Sulfate 4 mg 03/07/20 10:20 03/07/20 11:35 Morphine Sulfate IVPUSH 4 mg Q6H PRN Administration PAIN LEVEL 6-10 Non-Formulary Medication 1 each 03/07/20 10:00 03/08/20 09:08 Insulin Pump Syringe, 1.8 Ml [Thinset] NR Not Given DAILY [place] Silver Sulfadiazine 1 applic 03/07/20 10:30 03/08/20 09:08 Silvadene - TP 1 applic DAILY [place] Administration Vital Signs Period Temp Pulse Resp BP Sys/Ken Pulse Ox Last 24 Hr 98.7 F-99.6 F 94-105 18-20 122-150/65-98 96-100 Constitutional: Yes: No Distress, Calm Eyes: Yes: Conjunctiva Clear Neck: Yes: Supple, Trachea Midline Respiratory: Yes: Regular, CTA Bilaterally Gastrointestinal: Yes: Normal Bowel Sounds, Soft Cardiovascular: Yes: Regular Rate and Rhythm JVD: No Heart Sounds: Yes: S1, S2 Musculoskeletal: No: Back Pain Edema: No Neurological: Yes: Alert, Oriented Psychiatric: No: Agitated CBC, BMP 03/07/20 07:58 03/07/20 07:58 Assessment/Plan EKG sinus, IRBBB, no ischemic changes CXR: no acute process echo 11/2018: nl lv/rv, mild mr, mod ms, lvh mibi 11/2018: no scar/ischemia preop evaluation, PAD, leg pain - plan revision of lle fem-pop bypass - EKG stable, asymptomatic. Recent nuclear stress test and echo unremarkable. No further cardiac testing is needed at this time. Pt has intermediate risk of periop cardiac events for the planned vascular surgery. HTN - cont home meds HLD - cont statin DM - manage per primary
--- NOTE | 2020-03-08 15:30 | CON.ID ---
Consult Consult Specialty:: infectious diseases Referred by:: pvd,wound on the leg Reason for Consultation:: non healing wound on the leg and pvd - History of Present Illness Chief Complaint: non healing wound History of Present Illness: 49 y/o male with a PMHx of HTN, HLD, IDDM, PVD (w/chronic venous stasis ulcers, s/p graft repair in RLE in 2017, LLE in 2018), Peripheral neuropathy here with LLE pain. Pain associated with LLE ulcer that patient states that started two months ago and has been increasing in size. Also reports RLE swelling that has been worsening over the last few weeks Denies any fevers/chills, shortness of breath, abdominal pain, chest pain. patient seen by vascular surgery,plan for bypass on thursday - History Source History Provided By: Patient Limitations to Obtaining History: No Limitations - Past Medical History Cardio/Vascular: Yes: HTN, Hyperlipdemia, Other (PAD) Gastrointestinal: Yes: Other (Obesity) Renal/: Yes: Renal Inusuff. 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 History of Recent Travel: Yes ([place] 2 weeks ago) Home Medications - Allergies Allergies/Adverse Reactions: Allergies Allergy/AdvReac Type Severity Reaction Status Date / Time No Known Allergies Allergy Verified 03/06/20 16:26 - Home Medications Home Medications: Ambulatory Orders Insulin Pump Syringe, 1.8 ml [Thinset] 1 each [facility] DAILY 10/21/16 Aspirin [ASA -] 81 mg PO DAILY #30 tab.chew 03/04/18 Atorvastatin Ca [Lipitor] 20 mg PO HS #30 tablet 03/04/18 Clopidogrel Bisulfate [Plavix -] 75 mg PO DAILY #30 tablet 03/04/18 Gabapentin [Neurontin -] 300 mg PO TID #30 capsule 03/04/18 Amlodipine Besylate 5 mg PO DAILY 04/07/18 Acetaminophen [Tylenol .Regular Strength -] 650 mg PO Q6H PRN tablet 04/12/18 Docusate Sodium [Colace -] 100 mg PO BID #14 capsule 12/07/18 Losartan 50Mg/Hctz 12.5MG [Hyzaar -] 1 tab PO DAILY tablet 12/07/18 Physical Exam Vital Signs: Vital Signs Temperature 99.0 F 03/08/20 13:46 Pulse Rate 98 H 03/08/20 13:46 Respiratory Rate 18 03/08/20 13:46 Blood Pressure 141/80 03/08/20 13:46 O2 Sat by Pulse Oximetry (%) 96 03/08/20 09:00 Labs: CBC, BMP 03/07/20 07:58 03/07/20 07:58
[2020-03-08] MEDS ORDERED: PIPERACILLIN/TAZOBACTAM 3.375 GM VIAL IVPB ONE (16:48)
[2020-03-08] MEDS ORDERED: DEXTROSE 5%-WATER - 50 ML IVPB ONE (16:48)
[2020-03-08] MEDS: PIPERACILLIN/TAZOB 3.375 GM 3.375 GM in DEXTROSE 5%-WATER - 50 ML IVPB SCH (17:56)
[2020-03-08] MEDS: ATORVASTATIN CA 20 MG TABLET (FP) PO SCH (21:23)
--- NOTE | 2020-03-08 22:23 | PN ---
Progress Note, Physician History of Present Illness: No new complaints Pt still having some pain in LLE - Current Medication List Current Medications: Active Medications Amlodipine Besylate (Norvasc -) 5 mg PO DAILY [facility] Last Admin: 03/08/20 09:08 Dose: 5 mg Documented by: Aspirin (Asa -) 81 mg PO DAILY [facility] Last Admin: 03/08/20 09:08 Dose: 81 mg Documented by: Atorvastatin Calcium (Lipitor -) 20 mg PO HS [facility] Last Admin: 03/08/20 21:23 Dose: 20 mg Documented by: Clopidogrel Bisulfate (Plavix -) 75 mg PO DAILY [facility] Last Admin: 03/08/20 09:08 Dose: 75 mg Documented by: Docusate Sodium (Colace -) 100 mg PO BID [facility] Last Admin: 03/08/20 21:23 Dose: 100 mg Documented by: Gabapentin (Neurontin -) 300 mg PO TID [facility] Last Admin: 03/08/20 21:23 Dose: 300 mg Documented by: HCTZ/Losartan Potassium (Hyzaar -) 1 tab PO DAILY [facility] Last Admin: 03/08/20 09:12 Dose: 1 tab Documented by: Heparin Sodium (Porcine) (Heparin -) 5,000 unit SQ BID [facility] Last Admin: 03/08/20 21:23 Dose: 5,000 unit Documented by: Piperacillin Sod/Tazobactam (Sod 3.375 gm/ Dextrose) 50 mls @ 100 mls/hr IVPB Q8H-IV [facility]; Protocol Last Admin: 03/08/20 17:56 Dose: 100 mls/hr Documented by: Influenza Virus Vaccine Quadrival (Flulaval Quad [id number]) 60 mcg IM .ONCE ONE Stop: 03/07/20 00:29 Insulin Aspart (Novolog Vial Sliding Scale -) 1 vial SQ ACHS [facility]; Protocol Last Admin: 03/08/20 21:24 Dose: 6 units Documented by: Morphine Sulfate (Morphine Sulfate) 4 mg IVPUSH Q6H PRN PRN Reason: PAIN LEVEL 6-10 Last Admin: 03/07/20 11:35 Dose: 4 mg Documented by: Non-Formulary Medication (Insulin Pump Syringe, 1.8 Ml [Thinset]) 1 each NR DAILY [facility] Last Admin: 03/08/20 09:08 Dose: Not Given Documented by: Silver Sulfadiazine (Silvadene -) 1 applic TP DAILY [facility] Last Admin: 03/08/20 09:08 Dose: 1 applic Documented by: - Objective Vital Signs: Vital Signs Temperature 99.0 F 03/08/20 18:26 Pulse Rate 97 H 03/08/20 18:26 Respiratory Rate 18 03/08/20 13:46 Blood Pressure 142/96 03/08/20 18:26 O2 Sat by Pulse Oximetry (%) 96 03/08/20 09:00 Neck: Yes: WNL, Supple Cardiovascular: Yes: WNL, Regular Rate and Rhythm Respiratory: Yes: WNL, Regular, CTA Bilaterally Gastrointestinal: Yes: WNL, Normal Bowel Sounds, Soft Extremities: Yes: Other ((+) ulcer Lt calf) Labs: CBC, BMP 03/07/20 07:58 03/07/20 07:58 INR, PTT INR 1.01 (0.83-1.09) 03/06/20 16:35 Problem List - Problems (1) PAD (peripheral artery disease) Assessment/Plan: Pt to undergo LLE fem-pop revision Clearance by cardio Pt also w/ nonhealing LLE wound Cont IV antibxs Code(s): I73.9 - PERIPHERAL VASCULAR DISEASE, UNSPECIFIED (2) Diabetes Assessment/Plan: Cont sliding scale w/ coverage Pt has insulin pump Endo consult Glucose slightly uncontrolled Code(s): E11.9 - TYPE 2 DIABETES MELLITUS WITHOUT COMPLICATIONS (3) Diabetic neuropathy Assessment/Plan: Cont gabapentin Code(s): E11.40 - TYPE 2 DIABETES MELLITUS WITH DIABETIC NEUROPATHY, UNSP (4) HTN (hypertension) Assessment/Plan: Bp stable Cont losartan/norvasc Code(s): I10 - ESSENTIAL (PRIMARY) HYPERTENSION (5) HLD (hyperlipidemia) Assessment/Plan: Cont lipitor Code(s): E78.5 - HYPERLIPIDEMIA, UNSPECIFIED (6) CAD (coronary artery disease) Assessment/Plan: Cont plavix Code(s): I25.10 - ATHSCL HEART DISEASE OF [place] CORONARY ARTERY W/O ANG PCTRS
[2020-03-09] MEDS: morphine SULFATE 4 MG/ML VIAL IVPUSH PRN (00:13)
[2020-03-09] MEDS ORDERED: DEXTROSE 5%-WATER - 50 ML IVPB ONE ×3 (00:40→17:38)
[2020-03-09] MEDS ORDERED: PIPERACILLIN/TAZOBACTAM 3.375 GM VIAL IVPB ONE ×3 (00:40→17:38)
[2020-03-09] MEDS: PIPERACILLIN/TAZOB 3.375 GM 3.375 GM in DEXTROSE 5%-WATER - 50 ML IVPB SCH ×3 (02:00→17:39)
[2020-03-09] MEDS: GABAPENTIN 300 MG CAPSULE PO SCH ×3 (05:40→21:20)
[2020-03-09] MEDS: INSULIN SLIDING SCALE (NOVOLOG) 1 VIAL SQ SCH ×4 (06:02→21:20)
[2020-03-09 07:53] LABS: BASO % 0.4 % (0-2.0); EOS % 4.2 % (0-4.5); HEMATOCRIT 38.1 % (35.4-49); HEMOGLOBIN 12.2 GM/dL (11.7-16.9); LYMPH % 32.1 % (8-40); MCHC 32.1 g/dl (32.0-35.9); MEAN PLT VOLUME 7.7 fl (7.5-11.1); MONO % 6.7 % (3.8-10.2); NEUT % 56.6 % (42.8-82.8); PLATELET COUNT 248 K/MM3 (134-434); RDW 15.4 % (11.9-15.9); WHITE BLOOD COUNT 8.1 K/mm3 (4.0-10.0)
[2020-03-09 08:01] LABS: ALBUMIN 2.8 g/dl (3.4-5.0); BILIRUBIN,TOTAL 0.6 mg/dL (0.2-1); BLOOD UREA NITROGEN 16.7 mg/dL (7-18); CALCIUM 8.9 mg/dL (8.5-10.1); CREATININE 1.3 mg/dL (0.55-1.3); TOT PROT 6.4 g/dl (6.4-8.2)
--- NOTE | 2020-03-09 08:28 | PN ---
Progress Note (short form) - Note Progress Note: VASCULAR SURGERY 49 yo male admitted with ischemic ulcer left calf. s/p Lt fem-pop bypass w/ reversed SV 12/03/18 ([place]) CTA:occlusion of bypass w/ below knee popliteal patent. LE Duplex vein mapping GSV and SSV both calves (trying to identify vein for harvesting as upper thigh veins already harvested) Per Cardiology note, reportedly had recent nuclear stress and echo within the last year prior to another surgery that were unremarkable with Dr. Crain (pt's group sales coordinator). Recommend obtaining those reports - if benign findings, no further testing prior to surgery Plan for bypass revision 03/12 Currently Covid (-) 03/06/20. Patient will need a repeat Covid test (as per new OR protocol, Covid test must be negative within 3 days of any surgical procedure). Medical attending to obtain cardiology reports fromDr. Crain Cont current medical management / optimization
[2020-03-09] MEDS: ASPIRIN 81 MG CHEWABLE TABLETS PO SCH (09:34)
[2020-03-09] MEDS: DOCUSATE SODIUM 100 MG CAPSULE (FP) PO SCH ×2 (09:34→21:20)
[2020-03-09] MEDS: SILVER SULFADIAZINE 1% TOP CREAM 50 GM JAR TP SCH (09:34)
[2020-03-09] MEDS: CLOPIDOGREL BISULFATE 75 MG TABLET (FP) PO SCH (09:34)
[2020-03-09] MEDS: LOSARTAN 50MG/HCTZ 12.5MG 1 TAB (FP) PO SCH (09:34)
[2020-03-09] MEDS: HEPARIN NA (PORCINE) 5,000 UNITS/ML 1ML VIAL SQ SCH ×2 (09:34→21:20)
[2020-03-09] MEDS: INSULIN PUMP NR SCH (09:34)
[2020-03-09] MEDS: [UNRECOGNIZED DRUG - OTHER] NR SCH (09:34)
[2020-03-09] MEDS: amLODIPine BESYLATE 5 MG TABLET (FP) PO SCH (09:34)
--- NOTE | 2020-03-09 09:53 | PN ---
Progress Note, Physician Chief Complaint: denies CP/SOB/palps History of Present Illness: PAD Obesity DM HTN - Current Medication List Current Medications: Active Medications Amlodipine Besylate (Norvasc -) 5 mg PO DAILY [facility] Last Admin: 03/09/20 09:34 Dose: 5 mg Documented by: Aspirin (Asa -) 81 mg PO DAILY [facility] Last Admin: 03/09/20 09:34 Dose: 81 mg Documented by: Atorvastatin Calcium (Lipitor -) 20 mg PO HS [facility] Last Admin: 03/08/20 21:23 Dose: 20 mg Documented by: Clopidogrel Bisulfate (Plavix -) 75 mg PO DAILY [facility] Last Admin: 03/09/20 09:34 Dose: 75 mg Documented by: Docusate Sodium (Colace -) 100 mg PO BID [facility] Last Admin: 03/09/20 09:34 Dose: 100 mg Documented by: Gabapentin (Neurontin -) 300 mg PO TID [facility] Last Admin: 03/09/20 05:40 Dose: 300 mg Documented by: HCTZ/Losartan Potassium (Hyzaar -) 1 tab PO DAILY [facility] Last Admin: 03/09/20 09:34 Dose: 1 tab Documented by: Heparin Sodium (Porcine) (Heparin -) 5,000 unit SQ BID [facility] Last Admin: 03/09/20 09:34 Dose: 5,000 unit Documented by: Piperacillin Sod/Tazobactam (Sod 3.375 gm/ Dextrose) 50 mls @ 100 mls/hr IVPB Q8H-IV [facility]; Protocol Last Admin: 03/09/20 09:33 Dose: 100 mls/hr Documented by: Influenza Virus Vaccine Quadrival (Flulaval Quad ) 60 mcg IM .ONCE ONE Stop: 03/07/20 00:29 Insulin Aspart (Novolog Vial Sliding Scale -) 1 vial SQ ACHS [facility]; Protocol Last Admin: 03/09/20 06:02 Dose: 6 units Documented by: Morphine Sulfate (Morphine Sulfate) 4 mg IVPUSH Q6H PRN PRN Reason: PAIN LEVEL 6-10 Last Admin: 03/09/20 00:13 Dose: 4 mg Documented by: Non-Formulary Medication (Insulin Pump Syringe, 1.8 Ml [Thinset]) 1 each NR DAILY [facility] Last Admin: 03/09/20 09:34 Dose: Not Given Documented by: Silver Sulfadiazine (Silvadene -) 1 applic TP DAILY [facility] Last Admin: 03/09/20 09:34 Dose: 1 applic Documented by: - Objective Vital Signs: Vital Signs Temperature 98.4 F 03/09/20 06:00 Pulse Rate 87 03/09/20 06:00 Respiratory Rate 18 03/09/20 06:00 Blood Pressure 126/73 03/09/20 06:00 O2 Sat by Pulse Oximetry (%) 97 03/08/20 21:00 Constitutional: Yes: No Distress, Calm Eyes: Yes: Conjunctiva Clear HENT: Yes: Atraumatic, Normocephalic Cardiovascular: Yes: Regular Rate and Rhythm Respiratory: Yes: CTA Bilaterally Gastrointestinal: Yes: Soft (nt), Abdomen, Obese Edema: No Neurological: Yes: Alert, Oriented ...Motor Strength: WNL Psychiatric: Yes: WNL Labs: CBC, BMP 03/09/20 06:30 03/09/20 06:30 INR, PTT INR 1.01 (0.83-1.09) 03/06/20 16:35 Assessment/Plan DATA: EKG sinus, IRBBB, no ischemic changes CXR: no acute process echo 11/2018: nl lv/rv, mild mr, mod ms, lvh mibi 11/2018: no scar/ischemia IMP/PLAN: preop evaluation, PAD, leg pain: - plan revision of lle fem-pop bypass - EKG stable, asymptomatic. Recent nuclear stress test and echo ok. No further cardiac testing is needed at this time. Pt has intermediate risk of periop cardiac events for the planned vascular surgery. -Aspirin and Plavix periop management as per vascular surgery. HTN: currently controlled - recommend usual morning BP meds be given on AM of surgery with small sip of water HLD - cont statin DM - manage per primary
[2020-03-09] MEDS ORDERED: INSULIN (NOVOLOG) ASPART 100 UNITS/ML 10ML VIAL ONE ×3 (10:41→20:50)
--- NOTE | 2020-03-09 11:57 | PN ---
Progress Note, Physician History of Present Illness: stable no new issues - Current Medication List Current Medications: Active Medications Amlodipine Besylate (Norvasc -) 5 mg PO DAILY [facility] Last Admin: 03/09/20 09:34 Dose: 5 mg Documented by: Aspirin (Asa -) 81 mg PO DAILY [facility] Last Admin: 03/09/20 09:34 Dose: 81 mg Documented by: Atorvastatin Calcium (Lipitor -) 20 mg PO HS [facility] Last Admin: 03/08/20 21:23 Dose: 20 mg Documented by: Clopidogrel Bisulfate (Plavix -) 75 mg PO DAILY [facility] Last Admin: 03/09/20 09:34 Dose: 75 mg Documented by: Docusate Sodium (Colace -) 100 mg PO BID [facility] Last Admin: 03/09/20 09:34 Dose: 100 mg Documented by: Gabapentin (Neurontin -) 300 mg PO TID [facility] Last Admin: 03/09/20 05:40 Dose: 300 mg Documented by: HCTZ/Losartan Potassium (Hyzaar -) 1 tab PO DAILY [facility] Last Admin: 03/09/20 09:34 Dose: 1 tab Documented by: Heparin Sodium (Porcine) (Heparin -) 5,000 unit SQ BID [facility] Last Admin: 03/09/20 09:34 Dose: 5,000 unit Documented by: Piperacillin Sod/Tazobactam (Sod 3.375 gm/ Dextrose) 50 mls @ 100 mls/hr IVPB Q8H-IV [facility]; Protocol Last Admin: 03/09/20 09:33 Dose: 100 mls/hr Documented by: Influenza Virus Vaccine Quadrival (Flulaval Quad ) 60 mcg IM .ONCE ONE Stop: 03/07/20 00:29 Insulin Aspart (Novolog Vial Sliding Scale -) 1 vial SQ ACHS [facility]; Protocol Last Admin: 03/09/20 10:44 Dose: 10 units Documented by: Morphine Sulfate (Morphine Sulfate) 4 mg IVPUSH Q6H PRN PRN Reason: PAIN LEVEL 6-10 Last Admin: 03/09/20 00:13 Dose: 4 mg Documented by: Non-Formulary Medication (Insulin Pump Syringe, 1.8 Ml [Thinset]) 1 each NR DAILY [facility] Last Admin: 03/09/20 09:34 Dose: Not Given Documented by: Silver Sulfadiazine (Silvadene -) 1 applic TP DAILY [facility] Last Admin: 03/09/20 09:34 Dose: 1 applic Documented by: - Objective Vital Signs: Vital Signs Temperature 98.7 F 03/09/20 10:00 Pulse Rate 101 H 03/09/20 10:00 Respiratory Rate 03/09/20 10:00 Blood Pressure 126/61 03/09/20 10:00 O2 Sat by Pulse Oximetry (%) 96 03/09/20 09:00 Constitutional: Yes: No Distress, Calm, Obese Cardiovascular: Yes: S1, S2 Respiratory: Yes: Regular, CTA Bilaterally Gastrointestinal: Yes: Normal Bowel Sounds, Soft Musculoskeletal: Yes: WNL Extremities: Yes: Other Wound/Incision: Yes: Dressing Dry and Intact Neurological: Yes: Alert, Oriented Psychiatric: Yes: Alert, Oriented Labs: CBC, BMP 03/09/20 06:30 03/09/20 06:30 INR, PTT INR 1.01 (0.83-1.09) 03/06/20 16:35 Assessment/Plan Problem List - Problems (1) PAD (peripheral artery disease) Code(s): I73.9 - PERIPHERAL VASCULAR DISEASE, UNSPECIFIED (2) Diabetes Code(s): E11.9 - TYPE 2 DIABETES MELLITUS WITHOUT COMPLICATIONS (3) Diabetic neuropathy Code(s): E11.40 - TYPE 2 DIABETES MELLITUS WITH DIABETIC NEUROPATHY, UNSP (4) HTN (hypertension) Code(s): I10 - ESSENTIAL (PRIMARY) HYPERTENSION (5) HLD (hyperlipidemia) Code(s): E78.5 - HYPERLIPIDEMIA, UNSPECIFIED (6) CAD (coronary artery disease) Code(s): I25.10 - ATHSCL HEART DISEASE OF [place] CORONARY ARTERY W/O ANG PCTRS plan continue abx plan for surgery
[2020-03-09] MEDS: ATORVASTATIN CA 20 MG TABLET (FP) PO SCH (21:20)
--- NOTE | 2020-03-09 21:53 | PN ---
Progress Note, Physician History of Present Illness: Pt complains of pain to LLE - Current Medication List Current Medications: Active Medications Amlodipine Besylate (Norvasc -) 5 mg PO DAILY [facility] Last Admin: 03/09/20 09:34 Dose: 5 mg Documented by: Aspirin (Asa -) 81 mg PO DAILY [facility] Last Admin: 03/09/20 09:34 Dose: 81 mg Documented by: Atorvastatin Calcium (Lipitor -) 20 mg PO HS [facility] Last Admin: 03/09/20 21:20 Dose: 20 mg Documented by: Clopidogrel Bisulfate (Plavix -) 75 mg PO DAILY [facility] Last Admin: 03/09/20 09:34 Dose: 75 mg Documented by: Docusate Sodium (Colace -) 100 mg PO BID [facility] Last Admin: 03/09/20 21:20 Dose: 100 mg Documented by: Gabapentin (Neurontin -) 300 mg PO TID [facility] Last Admin: 03/09/20 21:20 Dose: 300 mg Documented by: HCTZ/Losartan Potassium (Hyzaar -) 1 tab PO DAILY [facility] Last Admin: 03/09/20 09:34 Dose: 1 tab Documented by: Heparin Sodium (Porcine) (Heparin -) 5,000 unit SQ BID [facility] Last Admin: 03/09/20 21:20 Dose: 5,000 unit Documented by: Piperacillin Sod/Tazobactam (Sod 3.375 gm/ Dextrose) 50 mls @ 100 mls/hr IVPB Q8H-IV [facility]; Protocol Last Admin: 03/09/20 17:39 Dose: 100 mls/hr Documented by: Influenza Virus Vaccine Quadrival (Flulaval Quad ) 60 mcg IM .ONCE ONE Stop: 03/07/20 00:29 Insulin Aspart (Novolog Vial Sliding Scale -) 1 vial SQ [facility]; Protocol Last Admin: 03/09/20 21:20 Dose: 8 units Documented by: Morphine Sulfate (Morphine Sulfate) 4 mg IVPUSH Q6H PRN PRN Reason: PAIN LEVEL 6-10 Last Admin: 03/09/20 00:13 Dose: 4 mg Documented by: Non-Formulary Medication (Insulin Pump Syringe, 1.8 Ml [Thinset]) 1 each NR DAILY [facility] Last Admin: 03/09/20 09:34 Dose: Not Given Documented by: Silver Sulfadiazine (Silvadene -) 1 applic TP DAILY [facility] Last Admin: 03/09/20 09:34 Dose: 1 applic Documented by: - Objective Vital Signs: Vital Signs Temperature 98.5 F 03/09/20 18:30 Pulse Rate 102 H 03/09/20 18:30 Respiratory Rate 20 03/09/20 18:30 Blood Pressure 140/80 03/09/20 18:30 O2 Sat by Pulse Oximetry (%) 96 03/09/20 09:00 Cardiovascular: Yes: WNL, Regular Rate and Rhythm Respiratory: Yes: WNL, Regular, CTA Bilaterally Gastrointestinal: Yes: WNL, Normal Bowel Sounds, Soft Extremities: Yes: Other (LT calf ulcer) Labs: CBC, BMP 03/09/20 06:30 03/09/20 06:30 INR, PTT INR 1.01 (0.83-1.09) 03/06/20 16:35 Problem List - Problems (1) PAD (peripheral artery disease) Assessment/Plan: Pt to have redo LT fem-pop bypass LLE calf ulcer Cont IV antibxs Cont wound care As per surgery Keep LLE elevated Code(s): I73.9 - PERIPHERAL VASCULAR DISEASE, UNSPECIFIED (2) Diabetes Assessment/Plan: Cont sliding scale w/ coverage Pt has insulin pump Code(s): E11.9 - TYPE 2 DIABETES MELLITUS WITHOUT COMPLICATIONS (3) Diabetic neuropathy Assessment/Plan: Cont gabapentin Code(s): E11.40 - TYPE 2 DIABETES MELLITUS WITH DIABETIC NEUROPATHY, UNSP (4) HTN (hypertension) Assessment/Plan: Bp stable Cont losartan/norvasc Code(s): I10 - ESSENTIAL (PRIMARY) HYPERTENSION (5) HLD (hyperlipidemia) Assessment/Plan: Cont lipitor Code(s): E78.5 - HYPERLIPIDEMIA, UNSPECIFIED (6) CAD (coronary artery disease) Assessment/Plan: Cont Restart plavix/asa Code(s): I25.10 - ATHSCL HEART DISEASE OF [place] CORONARY ARTERY W/O ANG PCTRS
[2020-03-10] MEDS ORDERED: PIPERACILLIN/TAZOBACTAM 3.375 GM VIAL IVPB ONE ×3 (01:10→17:37)
[2020-03-10] MEDS ORDERED: DEXTROSE 5%-WATER - 50 ML IVPB ONE ×3 (01:10→17:37)
[2020-03-10] MEDS: PIPERACILLIN/TAZOB 3.375 GM 3.375 GM in DEXTROSE 5%-WATER - 50 ML IVPB SCH ×3 (01:34→17:39)
[2020-03-10] MEDS: morphine SULFATE 4 MG/ML VIAL IVPUSH PRN ×2 (02:20→09:34)
[2020-03-10] MEDS: GABAPENTIN 300 MG CAPSULE PO SCH ×3 (06:01→21:33)
[2020-03-10] MEDS: INSULIN SLIDING SCALE (NOVOLOG) 1 VIAL SQ SCH ×4 (06:09→21:31)
[2020-03-10] MEDS: DOCUSATE SODIUM 100 MG CAPSULE (FP) PO SCH ×2 (09:23→21:33)
[2020-03-10] MEDS: LOSARTAN 50MG/HCTZ 12.5MG 1 TAB (FP) PO SCH (09:23)
[2020-03-10] MEDS: HEPARIN NA (PORCINE) 5,000 UNITS/ML 1ML VIAL SQ SCH ×2 (09:23→21:33)
[2020-03-10] MEDS: amLODIPine BESYLATE 5 MG TABLET (FP) PO SCH (09:23)
[2020-03-10] MEDS: [UNRECOGNIZED DRUG - OTHER] NR SCH (09:24)
[2020-03-10] MEDS: INSULIN PUMP NR SCH (09:24)
[2020-03-10] MEDS: SILVER SULFADIAZINE 1% TOP CREAM 50 GM JAR TP SCH (09:24)
--- NOTE | 2020-03-10 10:31 | PN ---
Progress Note (short form) - Note Progress Note: s: no cp sob palps dizzy Current Medications Generic Name Dose Route Start Last Admin Trade Name Jaquanq PRN Reason Stop Dose Admin Amlodipine Besylate 5 mg 03/07/20 10:00 03/10/20 09:23 Norvasc - PO 5 mg DAILY [place] Administration Atorvastatin Calcium 20 mg 03/07/20 22:00 03/09/20 21:20 Lipitor - PO 20 mg HS [place] Administration Docusate Sodium 100 mg 03/07/20 10:00 03/10/20 09:23 Colace - PO 100 mg BID [place] Administration Gabapentin 300 mg 03/07/20 06:00 03/10/20 06:01 Neurontin - PO 300 mg TID [place] Administration HCTZ/Losartan Potassium 1 tab 03/07/20 10:00 03/10/20 09:23 Hyzaar - PO 1 tab DAILY [place] Administration Heparin Sodium (Porcine) 5,000 unit 03/07/20 10:00 03/10/20 09:23 Heparin - SQ 5,000 unit BID [place] Administration Piperacillin Sod/Tazobactam 50 mls @ 100 mls/hr 03/08/20 18:00 03/10/20 09:23 Sod 3.375 gm/ Dextrose IVPB 100 mls/hr Q8H-IV [place] Administration Protocol Influenza Virus Vaccine Quadrival 60 mcg 03/07/20 00:28 Flulaval Quad [id number] IM 03/07/20 00:29 .ONCE ONE Insulin Aspart 1 vial 03/07/20 07:00 03/10/20 06:09 Novolog Vial Sliding Scale - SQ 6 units ACHS [place] Administration Protocol Non-Formulary Medication 1 each 03/07/20 10:00 03/10/20 09:24 Insulin Pump Syringe, 1.8 Ml [Thinset] NR Not Given DAILY [place] Silver Sulfadiazine 1 applic 03/07/20 10:30 03/10/20 09:24 Silvadene - TP 1 applic DAILY [place] Administration Vital Signs Period Temp Pulse Resp BP Sys/Ken Pulse Ox Last 24 Hr 98.0 F-98.9 F 86-102 20-20 115-151/62-99 97 Constitutional: Yes: No Distress, Calm Eyes: Yes: Conjunctiva Clear Neck: Yes: Supple, Trachea Midline Respiratory: Yes: Regular, CTA Bilaterally Gastrointestinal: Yes: Normal Bowel Sounds, Soft Cardiovascular: Yes: Regular Rate and Rhythm JVD: No Heart Sounds: Yes: S1, S2 Musculoskeletal: No: Back Pain Edema: No Neurological: Yes: Alert, Oriented Psychiatric: No: Agitated CBC, BMP 03/09/20 06:30 03/09/20 06:30 Assessment/Plan EKG sinus, IRBBB, no ischemic changes CXR: no acute process echo 11/2018: nl lv/rv, mild mr, mod ms, lvh mibi 11/2018: no scar/ischemia preop evaluation, PAD, leg pain - plan revision of lle fem-pop bypass - EKG stable, asymptomatic. Recent nuclear stress test and echo unremarkable. No further cardiac testing is needed at this time. Pt has intermediate risk of periop cardiac events for the planned vascular surgery. HTN - cont home meds HLD - cont statin DM - manage per primary
--- NOTE | 2020-03-10 12:17 | PN ---
Progress Note, Physician History of Present Illness: Pt states he is feeling well. Pain in LLE controlled. Less erythema. - Current Medication List Current Medications: Active Medications Amlodipine Besylate (Norvasc -) 5 mg PO DAILY [facility] Last Admin: 03/10/20 09:23 Dose: 5 mg Documented by: Atorvastatin Calcium (Lipitor -) 20 mg PO HS [facility] Last Admin: 03/09/20 21:20 Dose: 20 mg Documented by: Docusate Sodium (Colace -) 100 mg PO BID [facility] Last Admin: 03/10/20 09:23 Dose: 100 mg Documented by: Gabapentin (Neurontin -) 300 mg PO TID [facility] Last Admin: 03/10/20 06:01 Dose: 300 mg Documented by: HCTZ/Losartan Potassium (Hyzaar -) 1 tab PO DAILY [facility] Last Admin: 03/10/20 09:23 Dose: 1 tab Documented by: Heparin Sodium (Porcine) (Heparin -) 5,000 unit SQ BID [facility] Last Admin: 03/10/20 09:23 Dose: 5,000 unit Documented by: Piperacillin Sod/Tazobactam (Sod 3.375 gm/ Dextrose) 50 mls @ 100 mls/hr IVPB Q8H-IV [facility]; Protocol Last Admin: 03/10/20 09:23 Dose: 100 mls/hr Documented by: Influenza Virus Vaccine Quadrival (Flulaval Quad [id number]) 60 mcg IM .ONCE ONE Stop: 03/07/20 00:29 Insulin Aspart (Novolog Vial Sliding Scale -) 1 vial SQ ACHS [facility]; Protocol Last Admin: 03/10/20 11:42 Dose: 8 units Documented by: Non-Formulary Medication (Insulin Pump Syringe, 1.8 Ml [Thinset]) 1 each NR DAILY [facility] Last Admin: 03/10/20 09:24 Dose: Not Given Documented by: Silver Sulfadiazine (Silvadene -) 1 applic TP DAILY [facility] Last Admin: 03/10/20 09:24 Dose: 1 applic Documented by: - Objective Vital Signs: Vital Signs Temperature 98.0 F 03/10/20 10:00 Pulse Rate 97 H 03/10/20 10:00 Respiratory Rate 20 03/10/20 10:00 Blood Pressure 120/77 03/10/20 10:00 O2 Sat by Pulse Oximetry (%) 97 03/09/20 21:00 Constitutional: Yes: No Distress, Calm Cardiovascular: Yes: Regular Rate and Rhythm Respiratory: Yes: Regular Gastrointestinal: Yes: Normal Bowel Sounds, Soft, Abdomen, Obese Wound/Incision: Yes: Dressing Dry and Intact (LLE ulcer, LLE resolved erythema) Labs: CBC, BMP 03/09/20 06:30 03/09/20 06:30 INR, PTT INR 1.01 (0.83-1.09) 03/06/20 16:35 Problem List - Problems (1) Leg pain, left Code(s): M79.605 - PAIN IN LEFT LEG (2) Cellulitis Code(s): L03.90 - CELLULITIS, UNSPECIFIED Qualifiers: Site of cellulitis of trunk: unspecified site (3) Diabetes Code(s): E11.9 - TYPE 2 DIABETES MELLITUS WITHOUT COMPLICATIONS (4) HTN (hypertension) Code(s): I10 - ESSENTIAL (PRIMARY) HYPERTENSION (5) Obesity Code(s): E66.9 - OBESITY, UNSPECIFIED (6) PAD (peripheral artery disease) Code(s): I73.9 - PERIPHERAL VASCULAR DISEASE, UNSPECIFIED Assessment/Plan -- LE erythema resolving -- awaiting revision of LLE Fem-pop bypass -- doing well -- continue antibiotics
[2020-03-10] MEDS ORDERED: INSULIN (NOVOLOG) ASPART 100 UNITS/ML 10ML VIAL ONE (17:37)
--- NOTE | 2020-03-10 18:06 | PN ---
Progress Note, Physician History of Present Illness: No new complaints - Current Medication List Current Medications: Active Medications Amlodipine Besylate (Norvasc -) 5 mg PO DAILY [facility] Last Admin: 03/10/20 09:23 Dose: 5 mg Documented by: Atorvastatin Calcium (Lipitor -) 20 mg PO HS [facility] Last Admin: 03/09/20 21:20 Dose: 20 mg Documented by: Docusate Sodium (Colace -) 100 mg PO BID [facility] Last Admin: 03/10/20 09:23 Dose: 100 mg Documented by: Gabapentin (Neurontin -) 300 mg PO TID [facility] Last Admin: 03/10/20 13:34 Dose: 300 mg Documented by: HCTZ/Losartan Potassium (Hyzaar -) 1 tab PO DAILY [facility] Last Admin: 03/10/20 09:23 Dose: 1 tab Documented by: Heparin Sodium (Porcine) (Heparin -) 5,000 unit SQ BID [facility] Last Admin: 03/10/20 09:23 Dose: 5,000 unit Documented by: Piperacillin Sod/Tazobactam (Sod 3.375 gm/ Dextrose) 50 mls @ 100 mls/hr IVPB Q8H-IV [facility]; Protocol Last Admin: 03/10/20 17:39 Dose: 100 mls/hr Documented by: Insulin Aspart (Novolog Vial Sliding Scale -) 1 vial SQ ACHS [facility]; Protocol Last Admin: 03/10/20 16:54 Dose: 8 units Documented by: Non-Formulary Medication (Insulin Pump Syringe, 1.8 Ml [Thinset]) 1 each NR DAILY [facility] Last Admin: 03/10/20 09:24 Dose: Not Given Documented by: Silver Sulfadiazine (Silvadene -) 1 applic TP DAILY [facility] Last Admin: 03/10/20 09:24 Dose: 1 applic Documented by: - Objective Vital Signs: Vital Signs Temperature 98.0 F 03/10/20 10:00 Pulse Rate 97 H 03/10/20 10:00 Respiratory Rate 20 03/10/20 10:00 Blood Pressure 120/77 03/10/20 10:00 O2 Sat by Pulse Oximetry (%) 97 03/09/20 21:00 Cardiovascular: Yes: WNL, Regular Rate and Rhythm Respiratory: Yes: WNL, Regular, CTA Bilaterally, Tachypnea Gastrointestinal: Yes: WNL, Normal Bowel Sounds Extremities: Yes: Other (LLE calf ulcer) Labs: CBC, BMP 03/09/20 06:30 03/09/20 06:30 INR, PTT INR 1.01 (0.83-1.09) 03/06/20 16:35 Problem List - Problems (1) PAD (peripheral artery disease) Assessment/Plan: Pt to have redo LT fem-pop bypass LLE calf ulcer Cont IV antibxs Cont wound care As per surgery Keep LLE elevated Code(s): I73.9 - PERIPHERAL VASCULAR DISEASE, UNSPECIFIED (2) Diabetes Assessment/Plan: Cont sliding scale w/ coverage Pt has insulin pump Code(s): E11.9 - TYPE 2 DIABETES MELLITUS WITHOUT COMPLICATIONS (3) Diabetic neuropathy Assessment/Plan: Cont gabapentin Code(s): E11.40 - TYPE 2 DIABETES MELLITUS WITH DIABETIC NEUROPATHY, UNSP (4) HTN (hypertension) Assessment/Plan: Bp stable Cont losartan/norvasc Code(s): I10 - ESSENTIAL (PRIMARY) HYPERTENSION (5) HLD (hyperlipidemia) Assessment/Plan: Cont lipitor Code(s): E78.5 - HYPERLIPIDEMIA, UNSPECIFIED (6) CAD (coronary artery disease) Code(s): I25.10 - ATHSCL HEART DISEASE OF [place] CORONARY ARTERY W/O ANG PCTRS
[2020-03-10] MEDS: ATORVASTATIN CA 20 MG TABLET (FP) PO SCH (21:33)
[2020-03-11] MEDS ORDERED: PIPERACILLIN/TAZOBACTAM 3.375 GM VIAL IVPB ONE ×3 (00:46→18:34)
[2020-03-11] MEDS ORDERED: DEXTROSE 5%-WATER - 50 ML IVPB ONE ×3 (00:46→18:35)
[2020-03-11] MEDS: PIPERACILLIN/TAZOB 3.375 GM 3.375 GM in DEXTROSE 5%-WATER - 50 ML IVPB SCH ×3 (01:31→18:44)
[2020-03-11] MEDS ORDERED: oxyCODONE HCL 5 MG TABLET PO ONE ×2 (01:45→22:45)
[2020-03-11] MEDS: GABAPENTIN 300 MG CAPSULE PO SCH ×3 (05:59→21:47)
[2020-03-11] MEDS: INSULIN SLIDING SCALE (NOVOLOG) 1 VIAL SQ SCH ×4 (06:01→21:51)
[2020-03-11] MEDS: [UNRECOGNIZED DRUG - OTHER] NR SCH (10:11)
[2020-03-11] MEDS: INSULIN PUMP NR SCH (10:11)
[2020-03-11] MEDS: HEPARIN NA (PORCINE) 5,000 UNITS/ML 1ML VIAL SQ SCH ×2 (10:12→21:47)
[2020-03-11] MEDS: DOCUSATE SODIUM 100 MG CAPSULE (FP) PO SCH ×2 (10:12→21:47)
[2020-03-11] MEDS: amLODIPine BESYLATE 5 MG TABLET (FP) PO SCH (10:12)
[2020-03-11] MEDS: LOSARTAN 50MG/HCTZ 12.5MG 1 TAB (FP) PO SCH (10:13)
[2020-03-11] MEDS: SILVER SULFADIAZINE 1% TOP CREAM 50 GM JAR TP SCH (10:13)
[2020-03-11] MEDS ORDERED: INSULIN (NOVOLOG) ASPART 100 UNITS/ML 10ML VIAL ONE (10:37)
--- NOTE | 2020-03-11 11:36 | PN ---
Progress Note (short form) - Note Progress Note: s: no cp sob palps dizzy Current Medications Generic Name Dose Route Start Last Admin Trade Name Jaquanq PRN Reason Stop Dose Admin Amlodipine Besylate 5 mg 03/07/20 10:00 03/11/20 10:12 Norvasc - PO 5 mg DAILY [facility] Administration Atorvastatin Calcium 20 mg 03/07/20 22:00 03/10/20 21:33 Lipitor - PO 20 mg HS [facility] Administration Docusate Sodium 100 mg 03/07/20 10:00 03/11/20 10:12 Colace - PO 100 mg BID [facility] Administration Gabapentin 300 mg 03/07/20 06:00 03/11/20 05:59 Neurontin - PO 300 mg TID [facility] Administration HCTZ/Losartan Potassium 1 tab 03/07/20 10:00 03/11/20 10:13 Hyzaar - PO 1 tab DAILY [facility] Administration Heparin Sodium (Porcine) 5,000 unit 03/07/20 10:00 03/11/20 10:12 Heparin - SQ 5,000 unit BID [facility] Administration Piperacillin Sod/Tazobactam 50 mls @ 100 mls/hr 03/08/20 18:00 03/11/20 10:13 Sod 3.375 gm/ Dextrose IVPB 100 mls/hr Q8H-IV [facility] Administration Protocol Insulin Aspart 1 vial 03/07/20 07:00 03/11/20 11:32 Novolog Vial Sliding Scale - SQ 8 units ACHS [facility] Administration Protocol Non-Formulary Medication 1 each 03/07/20 10:00 03/11/20 10:11 Insulin Pump Syringe, 1.8 Ml [Thinset] NR Not Given DAILY [facility] Silver Sulfadiazine 1 applic 03/07/20 10:30 03/11/20 10:13 Silvadene - TP Not Given DAILY [facility] Vital Signs Period Temp Pulse Resp BP Sys/Ken Pulse Ox Last 24 Hr 98.5 F-98.7 F 94-98 20-20 128-131/62-85 97 Constitutional: Yes: No Distress, Calm Eyes: Yes: Conjunctiva Clear Neck: Yes: Supple, Trachea Midline Respiratory: Yes: Regular, CTA Bilaterally Gastrointestinal: Yes: Normal Bowel Sounds, Soft Cardiovascular: Yes: Regular Rate and Rhythm JVD: No Heart Sounds: Yes: S1, S2 Edema: No Neurological: Yes: Alert, Oriented Psychiatric: No: Agitated CBC, BMP 06/19/20 06:30 03/09/20 06:30 Assessment/Plan EKG sinus, IRBBB, no ischemic changes CXR: no acute process echo 11/2018: nl lv/rv, mild mr, mod ms, lvh mibi 11/2018: no scar/ischemia preop evaluation, PAD, leg pain - plan revision of lle fem-pop bypass - EKG stable, asymptomatic. Recent nuclear stress test and echo unremarkable. No further cardiac testing is needed at this time. Pt has intermediate risk of periop cardiac events for the planned vascular surgery. HTN - cont home meds HLD - cont statin DM - manage per primary
--- NOTE | 2020-03-11 16:33 | PN ---
Progress Note, Physician History of Present Illness: Pt doing well. Less LE erythema/edema. - Current Medication List Current Medications: Active Medications Amlodipine Besylate (Norvasc -) 5 mg PO DAILY [facility] Last Admin: 03/11/20 10:12 Dose: 5 mg Documented by: Atorvastatin Calcium (Lipitor -) 20 mg PO HS [facility] Last Admin: 03/10/20 21:33 Dose: 20 mg Documented by: Docusate Sodium (Colace -) 100 mg PO BID [facility] Last Admin: 03/11/20 10:12 Dose: 100 mg Documented by: Gabapentin (Neurontin -) 300 mg PO TID [facility] Last Admin: 03/11/20 14:57 Dose: 300 mg Documented by: HCTZ/Losartan Potassium (Hyzaar -) 1 tab PO DAILY [facility] Last Admin: 03/11/20 10:13 Dose: 1 tab Documented by: Heparin Sodium (Porcine) (Heparin -) 5,000 unit SQ BID [facility] Last Admin: 03/11/20 10:12 Dose: 5,000 unit Documented by: Piperacillin Sod/Tazobactam (Sod 3.375 gm/ Dextrose) 50 mls @ 100 mls/hr IVPB Q8H-IV [facility]; Protocol Last Admin: 03/11/20 10:13 Dose: 100 mls/hr Documented by: Insulin Aspart (Novolog Vial Sliding Scale -) 1 vial SQ ACHS [facility]; Protocol Last Admin: 03/11/20 16:24 Dose: 8 units Documented by: Non-Formulary Medication (Insulin Pump Syringe, 1.8 Ml [Thinset]) 1 each NR DAILY [facility] Last Admin: 03/11/20 10:11 Dose: Not Given Documented by: Silver Sulfadiazine (Silvadene -) 1 applic TP DAILY [facility] Last Admin: 03/11/20 10:13 Dose: Not Given Documented by: - Objective Vital Signs: Vital Signs Temperature 98.7 F 03/11/20 14:25 Pulse Rate 107 H 03/11/20 14:25 Respiratory Rate 03/11/20 14:25 Blood Pressure 117/65 03/11/20 14:25 O2 Sat by Pulse Oximetry (%) 97 03/10/20 21:00 Constitutional: Yes: No Distress, Calm Cardiovascular: Yes: Regular Rate and Rhythm Respiratory: Yes: Regular Gastrointestinal: Yes: Normal Bowel Sounds, Soft, Abdomen, Obese Wound/Incision: Yes: Other (Lt LE necrotic ulcer, dry, Less LE erythema/edema) Neurological: Yes: Alert, Oriented Labs: CBC, BMP 03/09/20 06:30 03/09/20 06:30 INR, PTT INR 1.01 (0.83-1.09) 03/06/20 16:35 Laboratory Last Values WBC 8.1 K/mm3 (4.0-10.0) 03/09/20 06:30 RBC 4.70 M/mm3 (4.00-5.60) 03/09/20 06:30 Hgb 12.2 GM/dL (11.7-16.9) 03/09/20 06:30 Hct 38.1 % (35.4-49) 03/09/20 06:30 MCV 81.0 fl (80-96) 03/09/20 06:30 MCH 26.0 pg (25.7-33.7) 03/09/20 06:30 MCHC 32.1 g/dl (32.0-35.9) 03/09/20 06:30 RDW 15.4 % (11.9-15.9) 03/09/20 06:30 Plt Count 248 K/MM3 (134-434) 03/09/20 06:30 MPV 7.7 fl (7.5-11.1) 03/09/20 06:30 Absolute Neuts (auto) 4.6 K/mm3 (1.5-8.0) 03/09/20 06:30 Neutrophils % 56.6 % (42.8-82.8) 03/09/20 06:30 Lymphocytes % 32.1 % (8-40) 03/09/20 06:30 Monocytes % 6.7 % (3.8-10.2) 03/09/20 06:30 Eosinophils % 4.2 % (0-4.5) 03/09/20 06:30 Basophils % 0.4 % (0-2.0) 03/09/20 06:30 Nucleated RBC % 0 % (0-0) 03/09/20 06:30 PT with INR 11.90 SEC (9.7-13.0) 03/06/20 16:35 INR 1.01 (0.83-1.09) 03/06/20 16:35 Sodium 136 mmol/L (136-145) 03/09/20 06:30 Potassium 4.0 mmol/L (3.5-5.1) 03/09/20 06:30 Chloride 99 mmol/L (98-107) 03/09/20 06:30 Carbon Dioxide 30 mmol/L (21-32) 03/09/20 06:30 Anion Gap 7 MMOL/L (8-16) L 03/09/20 06:30 BUN 16.7 mg/dL (7-18) 03/09/20 06:30 Creatinine 1.3 mg/dL (0.55-1.3) 03/09/20 06:30 Est GFR (CKD-EPI)AfAm 73.22 03/09/20 06:30 Est GFR (CKD-EPI)NonAf 63.18 03/09/20 06:30 POC Glucometer 338 UNITS (80-120) 03/11/20 11:26 Random Glucose 263 mg/dL (74-106) H 03/09/20 06:30 Hemoglobin A1c % 11.8 % (4.2-6.3) H 03/09/20 06:30 Calcium 8.9 mg/dL (8.5-10.1) 03/09/20 06:30 Total Bilirubin 0.6 mg/dL (0.2-1) 03/09/20 06:30 AST 14 U/L (15-37) L 03/09/20 06:30 ALT 20 U/L (13-61) 03/09/20 06:30 Alkaline Phosphatase 195 U/L (45-117) H 03/09/20 06:30 Total Protein 6.4 g/dl (6.4-8.2) 03/09/20 06:30 Albumin 2.8 g/dl (3.4-5.0) L 03/09/20 06:30 COVID-19 ([place]) Not detected (Not Detected) 03/09/20 10:40 Blood Type A POSITIVE 03/06/20 16:35 Antibody Screen Negative 03/06/20 16:35 Problem List - Problems (1) Leg pain, left Code(s): M79.605 - PAIN IN LEFT LEG (2) Cellulitis Code(s): L03.90 - CELLULITIS, UNSPECIFIED Qualifiers: Site of cellulitis of trunk: unspecified site (3) Diabetes Code(s): E11.9 - TYPE 2 DIABETES MELLITUS WITHOUT COMPLICATIONS (4) HTN (hypertension) Code(s): I10 - ESSENTIAL (PRIMARY) HYPERTENSION (5) Obesity Code(s): E66.9 - OBESITY, UNSPECIFIED (6) PAD (peripheral artery disease) Code(s): I73.9 - PERIPHERAL VASCULAR DISEASE, UNSPECIFIED Assessment/Plan -- LE erythema resolving -- for revision of LLE Fem-pop bypass tomorrow -- continue antibiotics
--- NOTE | 2020-03-11 21:46 | PN ---
Progress Note, Physician History of Present Illness: No new complaints Pt still having some pain in LLE - Current Medication List Current Medications: Active Medications Amlodipine Besylate (Norvasc -) 5 mg PO DAILY [facility] Last Admin: 03/11/20 10:12 Dose: 5 mg Documented by: Atorvastatin Calcium (Lipitor -) 20 mg PO HS [facility] Last Admin: 03/10/20 21:33 Dose: 20 mg Documented by: Docusate Sodium (Colace -) 100 mg PO BID [facility] Last Admin: 03/11/20 10:12 Dose: 100 mg Documented by: Gabapentin (Neurontin -) 300 mg PO TID [facility] Last Admin: 03/11/20 14:57 Dose: 300 mg Documented by: HCTZ/Losartan Potassium (Hyzaar -) 1 tab PO DAILY [facility] Last Admin: 03/11/20 10:13 Dose: 1 tab Documented by: Heparin Sodium (Porcine) (Heparin -) 5,000 unit SQ BID [facility] Last Admin: 03/11/20 10:12 Dose: 5,000 unit Documented by: Piperacillin Sod/Tazobactam (Sod 3.375 gm/ Dextrose) 50 mls @ 100 mls/hr IVPB Q8H-IV [facility]; Protocol Last Admin: 03/11/20 18:44 Dose: 100 mls/hr Documented by: Insulin Aspart (Novolog Vial Sliding Scale -) 1 vial SQ ACHS [facility]; Protocol Last Admin: 03/11/20 16:24 Dose: 8 units Documented by: Non-Formulary Medication (Insulin Pump Syringe, 1.8 Ml [Thinset]) 1 each NR DAILY [facility] Last Admin: 03/11/20 10:11 Dose: Not Given Documented by: Silver Sulfadiazine (Silvadene -) 1 applic TP DAILY [facility] Last Admin: 03/11/20 10:13 Dose: Not Given Documented by: - Objective Vital Signs: Vital Signs Temperature 98.7 F 03/11/20 14:25 Pulse Rate 107 H 03/11/20 14:25 Respiratory Rate 03/11/20 14:25 Blood Pressure 117/65 03/11/20 14:25 O2 Sat by Pulse Oximetry (%) 97 03/11/20 09:00 Cardiovascular: Yes: WNL, Regular Rate and Rhythm Respiratory: Yes: WNL, Regular, CTA Bilaterally Gastrointestinal: Yes: WNL, Normal Bowel Sounds, Soft Extremities: Yes: Other (Ulcer LLE) Labs: CBC, BMP 03/09/20 06:30 03/09/20 06:30 INR, PTT INR 1.01 (0.83-1.09) 03/06/20 16:35 Problem List - Problems (1) PAD (peripheral artery disease) Assessment/Plan: Pt to undergo LLE fem-pop revision Clearance by cardio Pt also w/ nonhealing LLE wound Cont IV antibxs Code(s): I73.9 - PERIPHERAL VASCULAR DISEASE, UNSPECIFIED (2) Diabetes Assessment/Plan: Cont sliding scale w/ coverage Pt has insulin pump Endo consult Glucose slightly uncontrolled Code(s): E11.9 - TYPE 2 DIABETES MELLITUS WITHOUT COMPLICATIONS (3) Diabetic neuropathy Assessment/Plan: Cont gabapentin Code(s): E11.40 - TYPE 2 DIABETES MELLITUS WITH DIABETIC NEUROPATHY, UNSP (4) HTN (hypertension) Assessment/Plan: Bp stable Cont losartan/norvasc Code(s): I10 - ESSENTIAL (PRIMARY) HYPERTENSION (5) HLD (hyperlipidemia) Assessment/Plan: Cont lipitor Code(s): E78.5 - HYPERLIPIDEMIA, UNSPECIFIED (6) CAD (coronary artery disease) Assessment/Plan: Cont plavix Code(s): I25.10 - ATHSCL HEART DISEASE OF [place] CORONARY ARTERY W/O ANG PCTRS
[2020-03-11] MEDS: ATORVASTATIN CA 20 MG TABLET (FP) PO SCH (21:47)
[2020-03-12] MEDS ORDERED: PIPERACILLIN/TAZOBACTAM 3.375 GM VIAL IVPB ONE ×2 (01:44→09:49)
[2020-03-12] MEDS ORDERED: DEXTROSE 5%-WATER - 50 ML IVPB ONE ×2 (01:44→09:49)
[2020-03-12] MEDS: PIPERACILLIN/TAZOB 3.375 GM 3.375 GM in DEXTROSE 5%-WATER - 50 ML IVPB SCH ×2 (01:52→11:11)
[2020-03-12] MEDS: GABAPENTIN 300 MG CAPSULE PO SCH (05:36)
[2020-03-12] MEDS: INSULIN SLIDING SCALE (NOVOLOG) 1 VIAL SQ SCH ×5 (06:20→21:45)
[2020-03-12] MEDS ORDERED: INSULIN (NOVOLOG) ASPART 100 UNITS/ML 10ML VIAL ONE ×2 (06:52→11:41)
--- NOTE | 2020-03-12 10:08 | PN ---
Progress Note, Physician History of Present Illness: stable no issues plan for vascular surgery today - Current Medication List Current Medications: Active Medications Amlodipine Besylate (Norvasc -) 5 mg PO DAILY [facility] Last Admin: 03/11/20 10:12 Dose: 5 mg Documented by: Atorvastatin Calcium (Lipitor -) 20 mg PO HS [facility] Last Admin: 03/11/20 21:47 Dose: 20 mg Documented by: Docusate Sodium (Colace -) 100 mg PO BID [facility] Last Admin: 03/11/20 21:47 Dose: 100 mg Documented by: Gabapentin (Neurontin -) 300 mg PO TID [facility] Last Admin: 03/12/20 05:36 Dose: Not Given Documented by: HCTZ/Losartan Potassium (Hyzaar -) 1 tab PO DAILY [facility] Last Admin: 03/11/20 10:13 Dose: 1 tab Documented by: Heparin Sodium (Porcine) (Heparin -) 5,000 unit SQ BID [facility] Last Admin: 03/11/20 21:47 Dose: 5,000 unit Documented by: Piperacillin Sod/Tazobactam (Sod 3.375 gm/ Dextrose) 50 mls @ 100 mls/hr IVPB Q8H-IV [facility]; Protocol Last Admin: 03/12/20 01:52 Dose: 100 mls/hr Documented by: Insulin Aspart (Novolog Vial Sliding Scale -) 1 vial SQ ACHS [facility]; Protocol Last Admin: 03/12/20 06:48 Dose: 8 units Documented by: Non-Formulary Medication (Insulin Pump Syringe, 1.8 Ml [Thinset]) 1 each NR DAILY [facility] Last Admin: 03/11/20 10:11 Dose: Not Given Documented by: Silver Sulfadiazine (Silvadene -) 1 applic TP DAILY [facility] Last Admin: 03/11/20 10:13 Dose: Not Given Documented by: - Objective Vital Signs: Vital Signs Temperature 97.7 F 03/12/20 05:50 Pulse Rate 101 H 03/12/20 05:50 Respiratory Rate 03/12/20 05:50 Blood Pressure 149/80 03/12/20 05:50 O2 Sat by Pulse Oximetry (%) 97 03/11/20 21:00 Constitutional: Yes: No Distress, Calm, Obese Cardiovascular: Yes: Regular Rate and Rhythm Respiratory: Yes: Regular, CTA Bilaterally Gastrointestinal: Yes: Normal Bowel Sounds, Soft Musculoskeletal: Yes: WNL Extremities: Yes: WNL Wound/Incision: Yes: Clean/Dry, Open to air Neurological: Yes: Alert, Oriented Psychiatric: Yes: Alert, Oriented Labs: CBC, BMP 03/09/20 06:30 03/09/20 06:30 INR, PTT INR 1.01 (0.83-1.09) 03/06/20 16:35 Assessment/Plan Problem List - Problems (1) PAD (peripheral artery disease) Code(s): I73.9 - PERIPHERAL VASCULAR DISEASE, UNSPECIFIED (2) Diabetes Code(s): E11.9 - TYPE 2 DIABETES MELLITUS WITHOUT COMPLICATIONS (3) Diabetic neuropathy Code(s): E11.40 - TYPE 2 DIABETES MELLITUS WITH DIABETIC NEUROPATHY, UNSP (4) HTN (hypertension) Code(s): I10 - ESSENTIAL (PRIMARY) HYPERTENSION (5) HLD (hyperlipidemia) Code(s): E78.5 - HYPERLIPIDEMIA, UNSPECIFIED (6) CAD (coronary artery disease) Code(s): I25.10 - ATHSCL HEART DISEASE OF [place] CORONARY ARTERY W/O ANG PCTRS plan continue abx plan for surgery
[2020-03-12] MEDS: DOCUSATE SODIUM 100 MG CAPSULE (FP) PO SCH (10:23)
--- NOTE | 2020-03-12 10:36 | PN ---
Progress Note (short form) - Note Progress Note: s: no cp sob palps dizzy Current Medications Generic Name Dose Route Start Last Admin Trade Name Binh PRN Reason Stop Dose Admin Amlodipine Besylate 5 mg 03/07/20 10:00 03/11/20 10:12 Norvasc - PO 5 mg DAILY [place] Administration Atorvastatin Calcium 20 mg 03/07/20 22:00 03/11/20 21:47 Lipitor - PO 20 mg HS [place] Administration Docusate Sodium 100 mg 03/07/20 10:00 03/12/20 10:23 Colace - PO Not Given BID [facility] Gabapentin 300 mg 03/07/20 06:00 03/12/20 05:36 Neurontin - PO Not Given TID [facility] HCTZ/Losartan Potassium 1 tab 03/07/20 10:00 03/11/20 10:13 Hyzaar - PO 1 tab DAILY [facility] Administration Heparin Sodium (Porcine) 5,000 unit 03/07/20 10:00 03/11/20 21:47 Heparin - SQ 5,000 unit BID [place] Administration Piperacillin Sod/Tazobactam 50 mls @ 100 mls/hr 03/08/20 18:00 03/12/20 01:52 Sod 3.375 gm/ Dextrose IVPB 100 mls/hr Q8H-IV [facility] Administration Protocol Insulin Aspart 1 vial 03/07/20 07:00 03/12/20 06:48 Novolog Vial Sliding Scale - SQ 8 units ACHS [facility] Administration Protocol Non-Formulary Medication 1 each 03/07/20 10:00 03/11/20 10:11 Insulin Pump Syringe, 1.8 Ml [Thinset] NR Not Given DAILY [facility] Silver Sulfadiazine 1 applic 03/07/20 10:30 03/11/20 10:13 Silvadene - TP Not Given DAILY [facility] Vital Signs Period Temp Pulse Resp BP Sys/Ken Pulse Ox Last 24 Hr 97.7 F-98.7 F 101-107 20-20 117-149/65-94 97 Constitutional: Yes: No Distress, Calm Eyes: Yes: Conjunctiva Clear Neck: Yes: Supple, Trachea Midline Respiratory: Yes: Regular, CTA Bilaterally Gastrointestinal: Yes: Normal Bowel Sounds, Soft Cardiovascular: Yes: Regular Rate and Rhythm JVD: No Heart Sounds: Yes: S1, S2 Edema: No Neurological: Yes: Alert, Oriented Psychiatric: No: Agitated CBC, BMP 03/09/20 06:30 03/09/20 06:30 Assessment/Plan EKG sinus, IRBBB, no ischemic changes CXR: no acute process echo 11/2018: nl lv/rv, mild mr, mod ms, lvh mibi 11/2018: no scar/ischemia preop evaluation, PAD, leg pain - plan revision of lle fem-pop bypass - EKG stable, asymptomatic. Recent nuclear stress test and echo unremarkable. No further cardiac testing is needed at this time. Pt has intermediate risk of periop cardiac events for the planned vascular surgery. HTN - cont home meds HLD - cont statin DM - manage per primary
[2020-03-12] MEDS: LOSARTAN 50MG/HCTZ 12.5MG 1 TAB (FP) PO SCH (11:12)
[2020-03-12] MEDS: INSULIN PUMP NR SCH (11:12)
[2020-03-12] MEDS: [UNRECOGNIZED DRUG - OTHER] NR SCH (11:12)
[2020-03-12] MEDS: amLODIPine BESYLATE 5 MG TABLET (FP) PO SCH (11:12)
[2020-03-12] MEDS: SILVER SULFADIAZINE 1% TOP CREAM 50 GM JAR TP SCH (11:12)
[2020-03-12] MEDS: HEPARIN NA (PORCINE) 5,000 UNITS/ML 1ML VIAL SQ SCH (11:44)
[2020-03-12] MEDS ORDERED: PROMETHAZINE HCL 25 MG/1 ML VIAL IVPUSH PRN ×2 (13:54→19:39)
[2020-03-12] MEDS ORDERED: ONDANSETRON 4 MG/2 ML VIAL IVPUSH PRN ×4 (13:54→19:39)
[2020-03-12] MEDS ORDERED: fentaNYL CITRATE 250 MCG/5 ML VIAL ONE (14:00)
[2020-03-12] MEDS ORDERED: PROPOFOL 20 ML ONE (14:00)
[2020-03-12] MEDS ORDERED: ROCURONIUM BROMIDE 50 MG/5 ML SYRINGE ONE (14:00)
[2020-03-12] MEDS ORDERED: MIDAZOLAM HCL 2 MG/2 ML SINGLE DOSE VIAL ONE (14:00)
[2020-03-12] MEDS ORDERED: LACTATED RINGERS SOLUTION 1,000 ML IV SCH ×2 (14:00→19:39)
[2020-03-12] MEDS ORDERED: HEPARIN NA (PORCINE) 5,000 UNITS/ML 1ML VIAL ONE (14:04)
[2020-03-12] MEDS ORDERED: PAPAVERINE HCL 30 MG/1 ML 10 ML VIAL NR ONE (14:04)
[2020-03-12] MEDS ORDERED: DEXAMETHASONE SOD PHOSPHATE 4 MG/1 ML VIAL IVPUSH PRN ×2 (14:13→19:39)
[2020-03-12] MEDS ORDERED: PROMETHAZINE HCL 25 MG/1 ML VIAL IVPB PRN ×2 (14:13→19:39)
[2020-03-12] MEDS ORDERED: HYDROmorphone *PCA* 10MG/50ML DISP.SYRIN PCA SCH ×2 (14:15→19:39)
[2020-03-12] MEDS ORDERED: LIDOCAINE HCL/PF 2% SDV 5ML VIAL ONE (14:33)
[2020-03-12] MEDS ORDERED: ePHEDrine SULFATE 50 MG/1 ML AMPULE ONE (14:46)
[2020-03-12] MEDS ORDERED: PHENYLEPHRINE HCL 10 MG/1 ML SINGLE DOSE VIAL ONE (14:56)
[2020-03-12] MEDS ORDERED: DEXAMETHASONE SOD PHOSPHATE 4 MG/1 ML VIAL ONE (15:07)
[2020-03-12] MEDS ORDERED: THROMBIN (BOVINE) 5,000 UNIT VIAL TP ONE ×2 (17:27→17:32)
[2020-03-12] MEDS ORDERED: GELATIN, ABSORBABLE 100 EACH SPONGE TP ONE (17:32)
[2020-03-12] MEDS ORDERED: HYDROmorphone HCl 2 MG/ML VIAL ONE (18:28)
[2020-03-12] MEDS ORDERED: POVIDONE-IODINE OINTMENT 10% - 28.4 GM TUBE TP ONE (18:53)
--- NOTE | 2020-03-12 19:09 | OP ---
Operative Note - Note: Operative Date: 03/12/20 Pre-Operative Diagnosis: Ischemic ulcer left calf Operation: Redo fem-pop bypass with PTFe. Femoral endarterectomy with vein patch angioplasty Findings: Dense scarring left groin with intimal hyperplasia causing severe stenosis of left common femoral artery. Occlusion vein graft Patent below knee popliteal artery. Implants: 8 mm ringed PTFE graft Post-Operative Diagnosis: Same as Pre-op Surgeon: Tate Sorensen Culinary Assistant: Brissa Aviles) Anesthesiologist/ELECTRICAL CHECKOUT MECHANIC: David Quiñones Anesthesia: General Estimated Blood Loss (mls): 300
--- NOTE | 2020-03-12 19:27 | SURG ---
Surgery Nurse Auditor Note Nurse Auditor: Anupam Unger PA-C Date of Service: 03/12/20 Diagnosis: Ischemic ulcer left calf Procedure: Redo fem-pop bypass with PTFe. Femoral endarterectomy with vein patch angioplasty * case was started by ALLYN Aviles, finished by ALLYN Unger I was present for the entirety of the operative procedure. For further detail, please refer to operative report. Visit type - Case Type Case Type: ED Admission
[2020-03-12] MEDS ORDERED: PT OWN MED DRAWER 7, Y5N ONE (19:47)
--- NOTE | 2020-03-12 21:13 | CONSULT ---
Consultation: REQUESTING PROVIDER: Dr. Sorensen CONSULT REQUEST: We have been asked to medically evaluate this patient for Fem- pop bypass, Femoral endarterectomy with vein patch angioplasty. HISTORY OF PRESENT ILLNESS: 49 M w/ PMH of IDDM w/peripheral neuropathy, HTN, peripheral vascular disease sent by Dr. Sorensen for graft revision. Pt had left fem-pop bypass [place] [address] Sorensen. LLE graft site was planned for revision after wound site developed ulceration and left calf developed wound w/ eschar, ultimately delayed due to COVID-19 pandemic. He developed recurrent leg pain several months ago but did not seek medical care and the graft thrombosed. He presented for follow up with Dr. Sorensen, who transferred him to [facility] ED for admission for graft revision. CTA shows occlusion of the bypass with below knee popliteal patent. Pt underwent Redo fem-pop bypass with PTFe and Femoral endarterectomy with vein patch angioplasty, is admitted to the ICU for monitoring. SHx: s/p Lt fem-pop bypass w/ reversed SV 12/03/18 ([facility]) REVIEW OF SYSTEMS: Admits to Left lower quadrant pain and tenderness around surgical site. He denies any fevers, chills, weakness, confusion, nausea, vomiting, chest pain, sob. PHYSICAL EXAMINATION Vital Signs - 24 hr 03/11/20 03/12/20 03/12/20 22:00 05:50 09:00 Temperature 98.4 F 97.7 F Pulse Rate 104 H 101 H Respiratory 20 20 18 Rate Blood Pressure 123/94 149/80 O2 Sat by Pulse 97 Oximetry (%) 03/12/20 03/12/20 03/12/20 10:00 19:14 19:30 Temperature 98.1 F 98.6 F Pulse Rate 92 H 88 82 Respiratory 18 16 14 Rate Blood Pressure 103/58 L 143/74 137/75 O2 Sat by Pulse 97 97 Oximetry (%) 03/12/20 03/12/20 03/12/20 19:45 20:00 20:15 Temperature Pulse Rate 79 80 80 Respiratory 16 14 16 Rate Blood Pressure 132/78 142/74 142/74 O2 Sat by Pulse 96 97 97 Oximetry (%) 03/12/20 20:30 Temperature Pulse Rate 81 Respiratory 16 Rate Blood Pressure 141/74 O2 Sat by Pulse 98 Oximetry (%) GENERAL: Awake, alert, and fully oriented, in no acute distress. Wakening up from sedation EYES: Pupils equal, round and reactive to light, extraocular movements intact, sclera anicteric, conjunctiva clear. No lid lag. EARS, NOSE, THROAT: Moist mucous membranes. NECK: Normal range of motion, supple without lymphadenopathy, JVD, or masses. LUNGS: Breath sounds equal, clear to auscultation bilaterally. No wheezes, and no crackles. No accessory muscle use. HEART: Regular rate and rhythm, normal S1 and S2 without murmur, rub or gallop. ABDOMEN: Soft, nontender, not distended, normoactive bowel sounds, no guarding, no rebound, no masses. Left groin surgical site dressing intact, with mild serosanguinous drainage. Tenderness. MUSCULOSKELETAL: Normal range of motion at all joints. No bony deformities or tenderness. No CVA tenderness. UPPER EXTREMITIES: 2+ pulses, warm, well-perfused. No cyanosis. No clubbing. No peripheral edema. LOWER EXTREMITIES: 2+ pulses- checked with Doppler, mildly cold, No calf tenderness. Left calf wound with eschar 3x3. No peripheral edema. Left leg surgical site with dressing intact, mild serosanguinous drainage soaking dressing. Right leg multiple surgical scar from previous bypass NEUROLOGICAL: Cranial nerves II-XII intact. Normal speech. Normal gait. Laboratory Results - last 24 hr 03/11/20 03/12/20 03/12/20 21:46 06:11 06:34 POC Glucometer 394 305 Blood Type A POSITIVE Antibody Screen Negative Crossmatch See Detail Active Medications Generic Name Dose Route Start Last Admin Trade Name Jaquanq PRN Reason Stop Dose Admin Amlodipine Besylate 5 mg 03/13/20 10:00 Norvasc - PO DAILY [facility] Aspirin 81 mg 03/13/20 10:00 Ecotrin - PO DAILY [facility] Atorvastatin Calcium 20 mg 03/12/20 22:00 Lipitor - PO HS [place] Chlorhexidine Gluconate 1 applic 03/12/20 22:00 Hibiclens For Decolonization - TP HS [facility] Docusate Sodium 100 mg 03/12/20 22:00 Colace - PO BID [place] Gabapentin 300 mg 03/12/20 22:00 Neurontin - PO TID [place] HCTZ/Losartan Potassium 1 tab 03/13/20 10:00 Hyzaar - PO DAILY [facility] Heparin Sodium (Porcine) 5,000 unit 03/12/20 22:00 Heparin - SQ BID [place] Hydromorphone HCl 10 mg 03/12/20 19:39 Hydromorphone 10 Mg/50 Ml-Ns HOME VISITS NURSE 03/19/20 14:13 HOME VISITS NURSE [facility] Protocol Lactated Ringer's 1,000 mls @ 125 mls/hr 03/12/20 19:39 Lactated Ringers Solution IV 03/14/20 03:38 ASDIR AUSITN Piperacillin Sod/Tazobactam 50 mls @ 100 mls/hr 03/12/20 20:00 Sod 3.375 gm/ Dextrose IVPB Q8H-IV [facility] Protocol Insulin Aspart 1 vial 03/12/20 22:00 Novolog Vial Sliding Scale - SQ ACHS [facility] Protocol Mupirocin 1 applic 03/12/20 22:00 Bactroban Ointment (For Decolonization) - NS 03/17/20 21:59 BID [facility] Non-Formulary Medication 1 each 03/13/20 10:00 Insulin Pump Syringe, 1.8 Ml [Thinset] NR DAILY [facility] Ondansetron HCl 4 mg 03/12/20 19:39 Zofran Injection IVPUSH Q4H PRN NAUSEA AND/OR VOMITING Promethazine HCl 12.5 mg 03/12/20 19:39 Phenergan Injection - IVPB Q6H PRN NAUSEA AND/OR VOMITING Silver Sulfadiazine 1 applic 03/13/20 10:00 Silvadene - TP DAILY [facility] ASSESSMENT/PLAN: 49 M w/ PMH of IDDM w/peripheral neuropathy, HTN, peripheral vascular disease sent by Dr. Sorensen for graft revision 10/23 to thrombosis of the previous graft. Pt underwent Redo fem-pop bypass with PTFe (Joe graft) and Femoral endarterectomy with vein patch angioplasty, is admitted to the ICU for monitoring. #Neuro off sedation, drowsy HOME VISITS NURSE- hydromorphone s/p oxycodone cont gabapentin #Cardio hx of HTN, PAD prior within last year ECHO + MPI wnl cont losartan + Norvasc cont lipitor + ASA cardio following LR at 125 as per surgery, will limit fluids to 2 bags tonight will reassess volume need tomorrow. #Pulmonary stable #GI zofran for nausea promethazine #Renal LR at 125 limited to 2 bags to prevent volume overload #ID empiric abx- zosyn Left calf ischemic wound 3x3 w/ eschar- stable- surgery following Left groin surgical site- dressing intact- minimal serosanguinous drainage Left leg surgical wound- dressing intact with minimal serosanguinous drainage hx of multiple fem-pop bypass s/p Lt fem-pop bypass w/ reversed SV 12/03/18 ([facility]) cont silvadene, chlorhexidine #Endo BGM Q4 ISS #DVT ppx heparin 5000 sq BID #GI ppx no need for ppx at this point FEN LR at 125 monitor lytes NPO for now Dispo: We will continue to follow the patient. Thank you for this consultative opportunity. Visit type - Emergency Visit Emergency Visit: Yes ED Registration Date: 03/06/20 Care time: The patient presented to the Emergency Department on the above date and was hospitalized for further evaluation of their emergent condition. - New Patient This patient is new to me today: Yes Date on this admission: 03/20/20 - Critical Care Critical Care patient: No ATTENDING PHYSICIAN STATEMENT I saw and evaluated the patient. I reviewed the resident's note and discussed the case with the resident. I agree with the resident's findings and plan as documented. SUBJECTIVE: OBJECTIVE: ASSESSMENT AND PLAN:
[2020-03-12] MEDS: MUPIROCIN 2% TOPICAL OINTMENT FOR DECOLONIZATION NS SCH (22:00)
[2020-03-12] MEDS ORDERED: HEPARIN NA (PORCINE) 5,000 UNITS/ML 1ML VIAL SQ SCH (22:00)
[2020-03-13] MEDS ORDERED: HYDROmorphone HCL CARPU-JECT 2 MG/1 ML DISP.SYRIN IVPUSH SCH (00:15)
[2020-03-13] MEDS ORDERED: DEXTROSE 5%-WATER - 50 ML IVPB ONE ×3 (00:29→16:22)
[2020-03-13] MEDS ORDERED: PIPERACILLIN/TAZOBACTAM 3.375 GM VIAL IVPB ONE ×3 (00:29→16:21)
[2020-03-13] MEDS: CHLORHEXIDINE GLUCONATE 4% CLEANSER FOR DECOLONIZATION TP SCH ×2 (00:32→21:04)
[2020-03-13] MEDS: DOCUSATE SODIUM 100 MG CAPSULE (FP) PO SCH ×3 (00:32→21:04)
[2020-03-13] MEDS: ATORVASTATIN CA 20 MG TABLET (FP) PO SCH ×2 (00:33→21:04)
[2020-03-13] MEDS: GABAPENTIN 300 MG CAPSULE PO SCH ×4 (00:33→21:04)
[2020-03-13] MEDS ORDERED: HYDROmorphone HCl 2 MG/ML VIAL ONE (00:35)
[2020-03-13] MEDS ORDERED: CEFAZOLIN 3 GM in DEXTROSE 5%-WATER - 50 ML IVPB SCH (02:00)
[2020-03-13] MEDS: PIPERACILLIN/TAZOB 3.375 GM 3.375 GM in DEXTROSE 5%-WATER - 50 ML IVPB SCH ×3 (03:00→18:11)
[2020-03-13] MEDS: INSULIN SLIDING SCALE (NOVOLOG) 1 VIAL SQ SCH ×4 (06:18→21:04)
--- NOTE | 2020-03-13 08:59 | PN ---
Progress Note (short form) - Note Progress Note: Vascular Surgery: Pt without complaints of pain this am. Nausea improved. No complaints of numbness/tingling to his lower extremities Vital Signs Period Temp Pulse Resp BP Sys/Ken Pulse Ox Last 24 Hr 97.6 F-98.6 F 79-97 11-30 103-145/58-91 95-98 Garza:[id number] clear/yellow urine GEN: A&0x3, NAD LLE: dressing c/d/i. foot warm and +DP pulse with doppler RLE: right cool with DP pulse CBC, BMP 03/13/20 09:42 03/13/20 09:42 Laboratory Tests 03/09/20 06:30 BUN 16.7 Creatinine 1.3 A/P: 49 yo male s/p Redo fem-pop bypass with PTFe. Femoral endarterectomy with vein patch angioplasty Doing well, may discontinue robinson Remove garza for TOV OOB to chair/ambulate Start xarelto, resume aspirin and discontinue palvix CBC/chem to be drawn in the am. BUN/CRET elevated today but pt making good urine. If BUN/CRET doesn't improve, pt may need an alternative oral anticoagulation medication. Continue IV fluids Begin clears and advance as tolerated D/w Dr. Sorensen <Brissa Aviles - Last Filed: 03/13/20 11:36> - Note Progress Note: Incisions clean and dry Left foot hyperemic, DP and PT doppler biphasic Right foot warm, PT biphasic Labs reviewed, Increase hydration Continue IV antibiotics for prosthetic graft prophylaxis (patient has had prior graft infection) <Tate Sorensen - Last Filed: 03/13/20 14:32>
[2020-03-13] MEDS ORDERED: HYDROmorphone HCL CARPU-JECT 2 MG/1 ML DISP.SYRIN IVPUSH PRN (09:23)
[2020-03-13] MEDS ORDERED: PT OWN MED DRAWER 7, Y5N ONE ×2 (09:40→19:47)
[2020-03-13] MEDS: ASPIRIN COATED 81 MG TABLET.EC PO SCH (09:42)
[2020-03-13] MEDS: LOSARTAN 50MG/HCTZ 12.5MG 1 TAB (FP) PO SCH (09:42)
[2020-03-13] MEDS: amLODIPine BESYLATE 5 MG TABLET (FP) PO SCH (09:42)
[2020-03-13 09:59] LABS: HEMATOCRIT 39.7 % (35.4-49); HEMOGLOBIN 12.5 GM/dL (11.7-16.9); MCHC 31.6 g/dl (32.0-35.9); MEAN CELL VOLUME 82.3 fl (80-96); MEAN PLT VOLUME 7.5 fl (7.5-11.1); PLATELET COUNT 295 K/MM3 (134-434); RBC 4.83 M/mm3 (4.00-5.60); RDW 15.3 % (11.9-15.9); WHITE BLOOD COUNT 14.3 K/mm3 (4.0-10.0)
[2020-03-13] MEDS ORDERED: INSULIN PUMP NR SCH (10:00)
[2020-03-13] MEDS ORDERED: [UNRECOGNIZED DRUG - OTHER] NR SCH (10:00)
[2020-03-13] MEDS: MUPIROCIN 2% TOPICAL OINTMENT FOR DECOLONIZATION NS SCH ×2 (10:25→21:04)
[2020-03-13] MEDS: RIVAROXABAN 10 MG TABLET PO SCH (10:26)
[2020-03-13 10:32] LABS: BLOOD UREA NITROGEN 25.6 mg/dL (7-18); CALCIUM 8.5 mg/dL (8.5-10.1); CREATININE 2.1 mg/dL (0.55-1.3); MAGNESIUM 2.2 mg/dL (1.8-2.4); PHOSPHOROUS 4.4 mg/dL (2.5-4.9); POTASSIUM 4.8 mmol/L (3.5-5.1)
--- NOTE | 2020-03-13 11:10 | PN ---
Teaching Attending Note Name of Resident: Sami Martins ATTENDING PHYSICIAN STATEMENT I saw and evaluated the patient. I reviewed the resident's note and discussed the case with the resident. I agree with the resident's findings and plan as documented. SUBJECTIVE: Pt seen and examined in the ICU. Pain controlled. No fevers or chills. Denies shortness of breath or chest pain. OBJECTIVE: Vital Signs Period Temp Pulse Resp BP Sys/Ken Pulse Ox Last 24 Hr 97.6 F-98.6 F 79-97 11-30 129-145/74-91 95-98 Intake & Output 03/10/20 03/11/20 03/12/20 03/13/20 23:59 23:59 23:59 23:59 Intake Total 8754 649 8049 1019 Output Total 600 900 Balance 877 549 0038 1019 Gen: NAD at rest Heart: RRR Lung: decreased breath sounds at the bases Abd: soft, nontender Ext: foot warm, palpable pulses CBC, BMP 03/13/20 09:42 03/13/20 09:42 Active Medications Amlodipine Besylate (Norvasc -) 5 mg PO DAILY [facility] Last Admin: 03/13/20 09:42 Dose: 5 mg Documented by: Aspirin (Ecotrin -) 81 mg PO DAILY [facility] Last Admin: 03/13/20 09:42 Dose: 81 mg Documented by: Atorvastatin Calcium (Lipitor -) 20 mg PO [facility] Last Admin: 03/13/20 00:33 Dose: 20 mg Documented by: Chlorhexidine Gluconate (Hibiclens For Decolonization -) 1 applic TP [facility] Last Admin: 03/13/20 00:32 Dose: 1 applic Documented by: Docusate Sodium (Colace -) 100 mg PO BID [facility] Last Admin: 03/13/20 09:02 Dose: 100 mg Documented by: Gabapentin (Neurontin -) 300 mg PO TID [facility] Last Admin: 03/13/20 06:05 Dose: Not Given Documented by: HCTZ/Losartan Potassium (Hyzaar -) 1 tab PO DAILY [facility] Last Admin: 03/13/20 09:42 Dose: 1 tab Documented by: Hydromorphone HCl (Dilaudid Vial -) 1 mg IVPUSH Q3H PRN PRN Reason: PAIN- Lactated Ringer's (Lactated Ringers Solution) 1,000 mls @ 125 mls/hr IV [facility] [place] Stop: 03/14/20 03:38 Last Admin: 03/12/20 21:35 Dose: 0 mls Documented by: Piperacillin Sod/Tazobactam (Sod 3.375 gm/ Dextrose) 50 mls @ 100 mls/hr IVPB Q8H-IV [place]; Protocol Last Admin: 03/13/20 09:02 Dose: 100 mls/hr Documented by: Insulin Aspart (Novolog Vial Sliding Scale -) 1 vial SQ ACHS [facility]; Protocol Last Admin: 03/13/20 06:18 Dose: 10 units Documented by: Mupirocin (Bactroban Ointment (For Decolonization) -) 1 applic NS BID [facility] Stop: 03/17/20 21:59 Last Admin: 03/13/20 10:25 Dose: 1 applic Documented by: Non-Formulary Medication (Insulin Pump Syringe, 1.8 Ml [Thinset]) 1 each NR DAILY [facility] Ondansetron HCl (Zofran Injection) 4 mg IVPUSH Q4H PRN PRN Reason: NAUSEA AND/OR VOMITING Promethazine HCl (Phenergan Injection -) 12.5 mg IVPB Q6H PRN PRN Reason: NAUSEA AND/OR VOMITING Rivaroxaban (Xarelto) 10 mg PO DAILY [facility] Last Admin: 03/13/20 10:26 Dose: 10 mg Documented by: Silver Sulfadiazine (Silvadene -) 1 applic TP DAILY [facility] ASSESSMENT AND PLAN: Ischemic Left Calf Ulcer/PAD s/p Redo Left Fem-Pop Bypass with PTFE/Femoral Endarterectomy with Vein Patch Angioplasty Acute Kidney Injury HTN DM Hyperlipidemia - pulse checks - pain control - incentive spirometry - PO as tolerated - continue anticoagulation, ASA - IVF - monitor urine output, creatinine - rehab/PT, disposition per surgery
--- NOTE | 2020-03-13 11:16 | PN ---
Physical Exam: SUBJECTIVE: Patient seen and examined at bedside. Overnight there were no acute events. This AM he offers no new complaints. OBJECTIVE: Vital Signs Period Temp Pulse Resp BP Sys/Ken Pulse Ox Last 24 Hr 97.6 F-98.6 F 79-97 11-30 129-145/74-91 95-98 GENERAL: The patient is awake, alert, and fully oriented, in no acute distress. HEAD: Normal with no signs of trauma. EYES: PERRL, extraocular movements intact, sclera anicteric, conjunctiva clear. No ptosis. ENT: Ears normal, nares patent, oropharynx clear without exudates, moist mucous membranes. NECK: Trachea midline, full range of motion, supple. LUNGS: Breath sounds equal, clear to auscultation bilaterally, no wheezes, no crackles, no accessory muscle use. HEART: Regular rate and rhythm, S1, S2 without murmur, rub or gallop. ABDOMEN: Soft, nontender, nondistended, normoactive bowel sounds, no guarding, no rebound, no hepatosplenomegaly, no masses. EXTREMITIES: 2+ pulses, warm, well-perfused, no edema. surgical scars bl NEUROLOGICAL: Cranial nerves II through XII grossly intact. Normal speech, gait not observed. PSYCH: Normal mood, normal affect. SKIN: Surgical scars BL LE Laboratory Results - last 24 hr 03/12/20 03/12/20 03/12/20 06:34 11:16 13:28 WBC RBC Hgb Hct MCV MCH MCHC RDW Plt Count MPV Sodium Potassium Chloride Carbon Dioxide Anion Gap BUN Creatinine Est GFR (CKD-EPI)AfAm Est GFR (CKD-EPI)NonAf POC Glucometer 282 276 Random Glucose Calcium Phosphorus Magnesium Crossmatch See Detail 03/12/20 03/12/20 03/12/20 19:31 20:38 21:48 WBC RBC Hgb Hct MCV MCH MCHC RDW Plt Count MPV Sodium Potassium Chloride Carbon Dioxide Anion Gap BUN Creatinine Est GFR (CKD-EPI)AfAm Est GFR (CKD-EPI)NonAf POC Glucometer 401 374 445 Random Glucose Calcium Phosphorus Magnesium Crossmatch 03/13/20 03/13/20 03/13/20 05:51 09:42 09:42 WBC 14.3 H RBC 4.83 Hgb 12.5 Hct 39.7 MCV 82.3 MCH 26.0 MCHC 31.6 L RDW 15.3 Plt Count 295 MPV 7.5 Sodium 137 Potassium 4.8 Chloride 99 Carbon Dioxide 29 Anion Gap 10 BUN 25.6 H Creatinine 2.1 H Est GFR (CKD-EPI)AfAm 41.00 Est GFR (CKD-EPI)NonAf 35.38 POC Glucometer 361 Random Glucose 307 H Calcium 8.5 Phosphorus 4.4 Magnesium 2.2 Crossmatch Active Medications Generic Name Dose Route Start Last Admin Trade Name Freq PRN Reason Stop Dose Admin Amlodipine Besylate 5 mg 03/13/20 10:00 03/13/20 09:42 Norvasc - PO 5 mg DAILY [place] Administration Aspirin 81 mg 03/13/20 10:00 03/13/20 09:42 Ecotrin - PO 81 mg DAILY [place] Administration Atorvastatin Calcium 20 mg 03/12/20 22:00 03/13/20 00:33 Lipitor - PO 20 mg HS [place] Administration Chlorhexidine Gluconate 1 applic 03/12/20 22:00 03/13/20 00:32 Hibiclens For Decolonization - TP 1 applic HS [place] Administration Docusate Sodium 100 mg 03/12/20 22:00 03/13/20 09:02 Colace - PO 100 mg BID [place] Administration Gabapentin 300 mg 03/12/20 22:00 03/13/20 06:05 Neurontin - PO Not Given TID [place] HCTZ/Losartan Potassium 1 tab 03/13/20 10:00 03/13/20 09:42 Hyzaar - PO 1 tab DAILY [place] Administration Hydromorphone HCl 1 mg 03/13/20 09:25 Dilaudid Vial - IVPUSH Q3H PRN PAIN- Lactated Ringer's 1,000 mls @ 125 mls/hr 03/12/20 19:39 03/12/20 21:35 Lactated Ringers Solution IV 03/14/20 03:38 0 mls ASDIR [place] Administration Piperacillin Sod/Tazobactam 50 mls @ 100 mls/hr 03/12/20 20:00 03/13/20 09:02 Sod 3.375 gm/ Dextrose IVPB 100 mls/hr Q8H-IV [place] Administration Protocol Insulin Aspart 1 vial 03/12/20 22:00 03/13/20 06:18 Novolog Vial Sliding Scale - SQ 10 units ACHS [place] Administration Protocol Mupirocin 1 applic 03/12/20 22:00 03/13/20 10:25 Bactroban Ointment (For Decolonization) - NS 03/17/20 21:59 1 applic BID [place] Administration Non-Formulary Medication 1 each 03/13/20 10:00 Insulin Pump Syringe, 1.8 Ml [Thinset] NR DAILY [facility] Ondansetron HCl 4 mg 03/12/20 19:39 Zofran Injection IVPUSH Q4H PRN NAUSEA AND/OR VOMITING Promethazine HCl 12.5 mg 03/12/20 19:39 Phenergan Injection - IVPB Q6H PRN NAUSEA AND/OR VOMITING Rivaroxaban 10 mg 03/13/20 10:00 03/13/20 10:26 Xarelto PO 10 mg DAILY [place] Administration Silver Sulfadiazine 1 applic 03/13/20 10:00 Silvadene - TP DAILY [place] ASSESSMENT/PLAN: 49 y/o male PMH of insulin treated DM w/peripheral neuropathy, HTN, peripheral vascular disease sent by Dr. Sorensen for graft revision 10/23 to thrombosis of the previous graft. Pt underwent revision fem-pop bypass with PTFe (Joe graft) and Femoral endarterectomy with vein patch angioplasty, is admitted to the ICU for monitoring. #Neuro AOx3 Cont gabapentin, dilaudid per surgery #Cardio HTN, PAD Losartan + Norvasc Lipitor + ASA #Pulmonary Covid NEG Incentive spirometry #GI zofran for nausea promethazine #Renal UO 900cc #ID Zosyn Left calf ischemic wound 3x3 w/ eschar- stable- surgery following Left groin surgical site- dressing intact- minimal serosanguinous drainage Left leg surgical wound- dressing intact with minimal serosanguinous drainage hx of multiple fem-pop bypass s/p Lt fem-pop bypass w/ reversed SV 12/03/18 ([facility]) cont silvadene, chlorhexidine #Endo BGM Q4 ISS #PPX Heparin 5000 sq BID PT when appropriate #FEN LR @125 x2 bags Continue to monitor electrolytes Clear liquid diet #Disposition ICU and further recommendations per surgery Visit type - Emergency Visit Emergency Visit: No - New Patient This patient is new to me today: Yes Date on this admission: 03/13/20 - Critical Care Critical Care patient: Yes Total Critical Care Time (in minutes): 35 Critical Care Statement: The care of this patient involved high complexity decision making to prevent further life threatening deterioration of the patien t's condition and/or to evaluate & treat vital organ system(s) failure or risk of failure. ATTENDING PHYSICIAN STATEMENT I saw and evaluated the patient. I reviewed the resident's note and discussed the case with the resident. I agree with the resident's findings and plan as documented. SUBJECTIVE: OBJECTIVE: ASSESSMENT AND PLAN:
[2020-03-13] MEDS ORDERED: LACTATED RINGERS SOLUTION 1,000 ML IV SCH (11:32)
--- NOTE | 2020-03-13 12:18 | PN ---
Progress Note (short form) - Note Progress Note: s: no cp sob palps dizzy. s/p redo fem-pop bypass with PTFE, fem endarterectomy with vein patch angioplasty Current Medications Generic Name Dose Route Start Last Admin Trade Name Freq PRN Reason Stop Dose Admin Amlodipine Besylate 5 mg 03/13/20 10:00 03/13/20 09:42 Norvasc - PO 5 mg DAILY [place] Administration Aspirin 81 mg 03/13/20 10:00 03/13/20 09:42 Ecotrin - PO 81 mg DAILY [place] Administration Atorvastatin Calcium 20 mg 03/12/20 22:00 03/13/20 00:33 Lipitor - PO 20 mg HS [place] Administration Chlorhexidine Gluconate 1 applic 03/12/20 22:00 03/13/20 00:32 Hibiclens For Decolonization - TP 1 applic HS [place] Administration Docusate Sodium 100 mg 03/12/20 22:00 03/13/20 09:02 Colace - PO 100 mg BID [place] Administration Gabapentin 300 mg 03/12/20 22:00 03/13/20 06:05 Neurontin - PO Not Given TID [place] HCTZ/Losartan Potassium 1 tab 03/13/20 10:00 03/13/20 09:42 Hyzaar - PO 1 tab DAILY [place] Administration Hydromorphone HCl 1 mg 03/13/20 09:25 Dilaudid Vial - IVPUSH Q3H PRN PAIN- Piperacillin Sod/Tazobactam 50 mls @ 100 mls/hr 03/12/20 20:00 03/13/20 09:02 Sod 3.375 gm/ Dextrose IVPB 100 mls/hr Q8H-IV [place] Administration Protocol Lactated Ringer's 1,000 mls @ 75 mls/hr 03/13/20 11:32 Lactated Ringers Solution IV 03/14/20 00:51 ASDIR [place] Insulin Aspart 1 vial 03/12/20 22:00 03/13/20 06:18 Novolog Vial Sliding Scale - SQ 10 units ACHS [facility] Administration Protocol Mupirocin 1 applic 03/12/20 22:00 03/13/20 10:25 Bactroban Ointment (For Decolonization) - NS 03/17/20 21:59 1 applic BID [place] Administration Non-Formulary Medication 1 each 03/13/20 10:00 Insulin Pump Syringe, 1.8 Ml [Thinset] NR DAILY [place] Ondansetron HCl 4 mg 03/12/20 19:39 Zofran Injection IVPUSH Q4H PRN NAUSEA AND/OR VOMITING Promethazine HCl 12.5 mg 03/12/20 19:39 Phenergan Injection - IVPB Q6H PRN NAUSEA AND/OR VOMITING Rivaroxaban 10 mg 03/13/20 10:00 03/13/20 10:26 Xarelto PO 10 mg DAILY [facility] Administration Silver Sulfadiazine 1 applic 03/13/20 10:00 Silvadene - TP DAILY [place] Vital Signs Period Temp Pulse Resp BP Sys/Ken Pulse Ox Last 24 Hr 97.6 F-98.6 F 79-100 11-30 129-145/74-91 95-98 Constitutional: Yes: No Distress, Calm Eyes: Yes: Conjunctiva Clear Neck: Yes: Supple, Trachea Midline Respiratory: Yes: Regular, CTA Bilaterally Gastrointestinal: Yes: Normal Bowel Sounds, Soft Cardiovascular: Yes: Regular Rate and Rhythm JVD: No Heart Sounds: Yes: S1, S2 Edema: No Neurological: Yes: Alert, Oriented Psychiatric: No: Agitated Assessment/Plan EKG sinus, IRBBB, no ischemic changes CXR: no acute process echo 11/2018: nl lv/rv, mild mr, mod ms, lvh mibi 11/2018: no scar/ischemia tele: sinus tach preop evaluation, PAD, leg pain - s/p s/p redo fem-pop bypass with PTFE, fem endarterectomy with vein patch angioplasty - surgery recs - cont xarelto, aspirin, statin per vascular HTN - cont home meds HLD - cont statin DM - manage per primary
[2020-03-13] MEDS: SILVER SULFADIAZINE 1% TOP CREAM 50 GM JAR TP SCH (12:43)
[2020-03-13] MEDS: HYDROmorphone HCl 2 MG/ML VIAL IVPUSH PRN ×2 (12:47→20:16)
--- NOTE | 2020-03-13 14:59 | PN ---
Progress Note, Physician History of Present Illness: stable post op from bypass wound looks clean - Current Medication List Current Medications: Active Medications Amlodipine Besylate (Norvasc -) 5 mg PO DAILY [facility] Last Admin: 03/13/20 09:42 Dose: 5 mg Documented by: Aspirin (Ecotrin -) 81 mg PO DAILY [facility] Last Admin: 03/13/20 09:42 Dose: 81 mg Documented by: Atorvastatin Calcium (Lipitor -) 20 mg PO [facility] Last Admin: 03/13/20 00:33 Dose: 20 mg Documented by: Chlorhexidine Gluconate (Hibiclens For Decolonization -) 1 applic TP [facility] Last Admin: 03/13/20 00:32 Dose: 1 applic Documented by: Docusate Sodium (Colace -) 100 mg PO BID [facility] Last Admin: 03/13/20 09:02 Dose: 100 mg Documented by: Gabapentin (Neurontin -) 300 mg PO TID [facility] Last Admin: 03/13/20 12:59 Dose: 300 mg Documented by: HCTZ/Losartan Potassium (Hyzaar -) 1 tab PO DAILY [facility] Last Admin: 03/13/20 09:42 Dose: 1 tab Documented by: Hydromorphone HCl (Dilaudid Vial -) 1 mg IVPUSH Q3H PRN PRN Reason: PAIN- Last Admin: 03/13/20 12:47 Dose: 1 mg Documented by: Piperacillin Sod/Tazobactam (Sod 3.375 gm/ Dextrose) 50 mls @ 100 mls/hr IVPB Q8H-IV [facility]; Protocol Last Admin: 03/13/20 09:02 Dose: 100 mls/hr Documented by: Lactated Ringer's (Lactated Ringers Solution) 1,000 mls @ 75 mls/hr IV ASDIR [facility] Stop: 03/14/20 00:51 Last Admin: 03/13/20 12:42 Dose: 75 mls/hr Documented by: Insulin Aspart (Novolog Vial Sliding Scale -) 1 vial SQ [facility]; Protocol Last Admin: 03/13/20 12:43 Dose: 8 units Documented by: Mupirocin (Bactroban Ointment (For Decolonization) -) 1 applic NS BID [facility] Stop: 03/17/20 21:59 Last Admin: 03/13/20 10:25 Dose: 1 applic Documented by: Non-Formulary Medication (Insulin Pump Syringe, 1.8 Ml [Thinset]) 1 each NR DAILY [facility] Ondansetron HCl (Zofran Injection) 4 mg IVPUSH Q4H PRN PRN Reason: NAUSEA AND/OR VOMITING Promethazine HCl (Phenergan Injection -) 12.5 mg IVPB Q6H PRN PRN Reason: NAUSEA AND/OR VOMITING Rivaroxaban (Xarelto) 10 mg PO DAILY [facility] Last Admin: 03/13/20 10:26 Dose: 10 mg Documented by: Silver Sulfadiazine (Silvadene -) 1 applic TP DAILY [facility] Last Admin: 03/13/20 12:43 Dose: Not Given Documented by: - Objective Vital Signs: Vital Signs Temperature 97.8 F 03/13/20 14:00 Pulse Rate 102 H 03/13/20 14:00 Respiratory Rate 18 03/13/20 14:00 Blood Pressure 119/73 03/13/20 14:00 O2 Sat by Pulse Oximetry (%) 95 03/13/20 09:00 Constitutional: Yes: No Distress, Calm, Obese Cardiovascular: Yes: S1, S2 Respiratory: Yes: Regular, CTA Bilaterally Gastrointestinal: Yes: Normal Bowel Sounds, Soft Musculoskeletal: Yes: WNL Extremities: Yes: Other Wound/Incision: Yes: Clean/Dry Neurological: Yes: Alert, Oriented Labs: CBC, BMP 03/13/20 09:42 03/13/20 09:42 INR, PTT INR 1.01 (0.83-1.09) 03/06/20 16:35 Assessment/Plan Problem List - Problems (1) PAD (peripheral artery disease) Code(s): I73.9 - PERIPHERAL VASCULAR DISEASE, UNSPECIFIED (2) Diabetes Code(s): E11.9 - TYPE 2 DIABETES MELLITUS WITHOUT COMPLICATIONS (3) Diabetic neuropathy Code(s): E11.40 - TYPE 2 DIABETES MELLITUS WITH DIABETIC NEUROPATHY, UNSP (4) HTN (hypertension) Code(s): I10 - ESSENTIAL (PRIMARY) HYPERTENSION (5) HLD (hyperlipidemia) Code(s): E78.5 - HYPERLIPIDEMIA, UNSPECIFIED (6) CAD (coronary artery disease) Code(s): I25.10 - ATHSCL HEART DISEASE OF [place] CORONARY ARTERY W/O ANG PCTRS plan continue abx monitor pulses rest as per the team wound care
--- NOTE | 2020-03-13 17:32 | PN ---
Progress Note, Physician History of Present Illness: STABLE - Current Medication List Current Medications: Active Medications Amlodipine Besylate (Norvasc -) 5 mg PO DAILY [facility] Last Admin: 03/13/20 09:42 Dose: 5 mg Documented by: Aspirin (Ecotrin -) 81 mg PO DAILY [facility] Last Admin: 03/13/20 09:42 Dose: 81 mg Documented by: Atorvastatin Calcium (Lipitor -) 20 mg PO [facility] Last Admin: 03/13/20 00:33 Dose: 20 mg Documented by: Chlorhexidine Gluconate (Hibiclens For Decolonization -) 1 applic TP [facility] Last Admin: 03/13/20 00:32 Dose: 1 applic Documented by: Docusate Sodium (Colace -) 100 mg PO BID [facility] Last Admin: 03/13/20 09:02 Dose: 100 mg Documented by: Gabapentin (Neurontin -) 300 mg PO TID [facility] Last Admin: 03/13/20 12:59 Dose: 300 mg Documented by: HCTZ/Losartan Potassium (Hyzaar -) 1 tab PO DAILY [facility] Last Admin: 03/13/20 09:42 Dose: 1 tab Documented by: Hydromorphone HCl (Dilaudid Vial -) 1 mg IVPUSH Q3H PRN PRN Reason: PAIN- Last Admin: 03/13/20 12:47 Dose: 1 mg Documented by: Piperacillin Sod/Tazobactam (Sod 3.375 gm/ Dextrose) 50 mls @ 100 mls/hr IVPB Q8H-IV [facility]; Protocol Last Admin: 03/13/20 09:02 Dose: 100 mls/hr Documented by: Lactated Ringer's (Lactated Ringers Solution) 1,000 mls @ 75 mls/hr IV ASDIR [facility] Stop: 03/14/20 00:51 Last Admin: 03/13/20 12:42 Dose: 75 mls/hr Documented by: Insulin Aspart (Novolog Vial Sliding Scale -) 1 vial SQ [facility]; Protocol Mupirocin (Bactroban Ointment (For Decolonization) -) 1 applic NS BID [facility] Stop: 03/17/20 21:59 Last Admin: 03/13/20 10:25 Dose: 1 applic Documented by: Non-Formulary Medication (Insulin Pump Syringe, 1.8 Ml [Thinset]) 1 each NR DAILY [facility] Ondansetron HCl (Zofran Injection) 4 mg IVPUSH Q4H PRN PRN Reason: NAUSEA AND/OR VOMITING Promethazine HCl (Phenergan Injection -) 12.5 mg IVPB Q6H PRN PRN Reason: NAUSEA AND/OR VOMITING Rivaroxaban (Xarelto) 10 mg PO DAILY [facility] Last Admin: 03/13/20 10:26 Dose: 10 mg Documented by: Silver Sulfadiazine (Silvadene -) 1 applic TP DAILY [facility] Last Admin: 03/13/20 12:43 Dose: Not Given Documented by: - Objective Vital Signs: Vital Signs Temperature 97.8 F 03/13/20 14:00 Pulse Rate 102 H 03/13/20 14:00 Respiratory Rate 18 03/13/20 14:00 Blood Pressure 119/73 03/13/20 14:00 O2 Sat by Pulse Oximetry (%) 95 03/13/20 09:00 Constitutional: Yes: No Distress HENT: Yes: Atraumatic Neck: Yes: Supple Cardiovascular: Yes: Regular Rate and Rhythm Respiratory: Yes: Rhonchi Gastrointestinal: Yes: Normal Bowel Sounds Extremities: Yes: Other (LLex dressing in place) Edema: No Neurological: Yes: Alert, Oriented Labs: CBC, BMP 03/13/20 09:42 03/13/20 09:42 INR, PTT INR 1.01 (0.83-1.09) 03/06/20 16:35 Problem List - Problems (1) PVD (peripheral vascular disease) Code(s): I73.9 - PERIPHERAL VASCULAR DISEASE, UNSPECIFIED (2) Arterial occlusion Assessment/Plan: s/pangioplasty Code(s): I70.90 - UNSPECIFIED ATHEROSCLEROSIS (3) Diabetes Assessment/Plan: on insulin and bgms Code(s): E11.9 - TYPE 2 DIABETES MELLITUS WITHOUT COMPLICATIONS (4) HLD (hyperlipidemia) Assessment/Plan: on meds Code(s): E78.5 - HYPERLIPIDEMIA, UNSPECIFIED (5) HTN (hypertension) Assessment/Plan: onmeds monitor bp Code(s): I10 - ESSENTIAL (PRIMARY) HYPERTENSION (6) Status post femoral-popliteal bypass surgery Code(s): Z95.828 - PRESENCE OF OTHER VASCULAR IMPLANTS AND GRAFTS Assessment/Plan covering for dr thelma aranda cc time 35 min
[2020-03-13] MEDS ORDERED: INSULIN (NOVOLOG) ASPART 100 UNITS/ML 10ML VIAL ONE (21:56)
[2020-03-14] MEDS ORDERED: DEXTROSE 5%-WATER - 50 ML IVPB ONE ×4 (02:22→21:29)
[2020-03-14] MEDS ORDERED: PIPERACILLIN/TAZOBACTAM 3.375 GM VIAL IVPB ONE ×4 (02:22→21:29)
[2020-03-14] MEDS: HYDROmorphone HCl 2 MG/ML VIAL IVPUSH PRN ×3 (02:24→15:03)
[2020-03-14] MEDS: PIPERACILLIN/TAZOB 3.375 GM 3.375 GM in DEXTROSE 5%-WATER - 50 ML IVPB SCH ×3 (02:24→17:35)
[2020-03-14] MEDS: INSULIN SLIDING SCALE (NOVOLOG) 1 VIAL SQ SCH ×4 (07:24→21:31)
[2020-03-14] MEDS: GABAPENTIN 300 MG CAPSULE PO SCH ×3 (07:24→21:30)
[2020-03-14 07:31] LABS: BASO % 0.5 % (0-2.0); EOS % 0.7 % (0-4.5); HEMATOCRIT 35.6 % (35.4-49); HEMOGLOBIN 11.5 GM/dL (11.7-16.9); LYMPH % 22.4 % (8-40); MCH 26.6 pg (25.7-33.7); MCHC 32.3 g/dl (32.0-35.9); MEAN CELL VOLUME 82.4 fl (80-96); MEAN PLT VOLUME 8.3 fl (7.5-11.1); MONO % 8.3 % (3.8-10.2); NEUT % 68.1 % (42.8-82.8); PLATELET COUNT 262 K/MM3 (134-434); RBC 4.32 M/mm3 (4.00-5.60); RDW 15.3 % (11.9-15.9)
[2020-03-14 07:33] LABS: ALBUMIN 2.7 g/dl (3.4-5.0); BILIRUBIN,TOTAL 0.5 mg/dL (0.2-1); BLOOD UREA NITROGEN 25.9 mg/dL (7-18); CALCIUM 8.6 mg/dL (8.5-10.1); CREATININE 1.8 mg/dL (0.55-1.3); PHOSPHOROUS 3.1 mg/dL (2.5-4.9); POTASSIUM 4.4 mmol/L (3.5-5.1); TOT PROT 5.9 g/dl (6.4-8.2)
--- NOTE | 2020-03-14 08:26 | PN ---
Progress Note (short form) - Note Progress Note: VASCULAR SURGERY POD #2 No acute events per RN notes. Resting comfortably without complaint. Hasn't been oob yet (but really wants too). Voiding spontaneously. Denies LE numbness/tingling Last Vital Signs Temp Pulse Resp BP Pulse Ox 99.7 F H 106 H 20 133/81 95 03/14/20 07:50 03/14/20 08:00 03/14/20 08:00 03/14/20 08:00 03/13/20 21:00 Lab Trends 03/13/20 03/14/2003/14 09:42 05:43 WBC 14.3 10.0 Hgb 12.5 11.5 Hct 39.7 35.6 Plt Count 295 262 BUN 25.6 25.9 Creatinine 2.1 1.8 PE GEN: A&0x3, NAD LLE: (dressing taken down on rounds) surgical leilani insitu (groin & calf). No erythema. No evidence of hematoma. No oozoing. All coompartments soft. Foot warm. Dopplerable DP only. (never had PT). A/P: POD #2 s/p Redo fem-pop bypass with PTFe. Femoral endarterectomy with vein patch angioplasty - Dressings changed while on rounds - Cont Silvadene dressing to LLE wound - Downgrade to floors - May be OOB to chair - PT for mobilization - Sodium controlled/DM diet - ASA 81 mg daily - Xarelto 10mg daily - BUN/Cr in AM - Tight glycemic control Above plan discussed with Dr. Sorensen and agrees. Problem List - Problems (1) Status post femoral-popliteal bypass surgery Code(s): Z95.828 - PRESENCE OF OTHER VASCULAR IMPLANTS AND GRAFTS (2) Diabetes Code(s): E11.9 - TYPE 2 DIABETES MELLITUS WITHOUT COMPLICATIONS (3) HTN (hypertension) Code(s): I10 - ESSENTIAL (PRIMARY) HYPERTENSION (4) Intermittent claudication of left lower extremity due to atherosclerosis Code(s): I70.212 - ATHSCL [place] ARTERIES OF EXTRM W INTRMT [place], LEFT LEG (5) Obesity Code(s): E66.9 - OBESITY, UNSPECIFIED (6) PAD (peripheral artery disease) Code(s): I73.9 - PERIPHERAL VASCULAR DISEASE, UNSPECIFIED
[2020-03-14] MEDS ORDERED: PT OWN MED DRAWER 7, Y5N ONE (09:28)
[2020-03-14] MEDS: MUPIROCIN 2% TOPICAL OINTMENT FOR DECOLONIZATION NS SCH ×2 (09:36→21:27)
[2020-03-14] MEDS: LOSARTAN 50MG/HCTZ 12.5MG 1 TAB (FP) PO SCH (09:37)
[2020-03-14] MEDS: ASPIRIN COATED 81 MG TABLET.EC PO SCH (09:37)
[2020-03-14] MEDS: DOCUSATE SODIUM 100 MG CAPSULE (FP) PO SCH ×2 (09:37→21:30)
[2020-03-14] MEDS: RIVAROXABAN 10 MG TABLET PO SCH (09:38)
[2020-03-14] MEDS: amLODIPine BESYLATE 5 MG TABLET (FP) PO SCH (09:38)
[2020-03-14] MEDS: SILVER SULFADIAZINE 1% TOP CREAM 50 GM JAR TP SCH (10:58)
--- NOTE | 2020-03-14 11:00 | PN ---
Physical Exam: SUBJECTIVE: Patient seen and examined at bedside. There were no acute events overnight. This AM he offers no new complaints. ROS NEG. OBJECTIVE: Vital Signs Period Temp Pulse Resp BP Sys/Ken Pulse Ox Last 24 Hr 97.8 F-100.0 F 87-111 13-104 104-144/49-104 95-95 GENERAL: The patient is awake, alert, and fully oriented, in no acute distress. HEAD: Normal with no signs of trauma. EYES: PERRL, extraocular movements intact, sclera anicteric, conjunctiva clear. No ptosis. ENT: Ears normal, nares patent, oropharynx clear without exudates, moist mucous membranes. NECK: Trachea midline, full range of motion, supple. LUNGS: Breath sounds equal, clear to auscultation bilaterally, no wheezes, no crackles, no accessory muscle use. HEART: Regular rate and rhythm, S1, S2 without murmur, rub or gallop. ABDOMEN: Soft, nontender, nondistended, normoactive bowel sounds, no guarding, no rebound, no hepatosplenomegaly, no masses. EXTREMITIES: 2+ pulses, warm, well-perfused, no edema. surgical scars bl NEUROLOGICAL: Cranial nerves II through XII grossly intact. Normal speech, gait not observed. PSYCH: Normal mood, normal affect. SKIN: Surgical scars BL LE Laboratory Results - last 24 hr 03/13/20 03/13/20 03/13/20 12:04 16:09 20:56 WBC RBC Hgb Hct MCV MCH MCHC RDW Plt Count MPV Absolute Neuts (auto) Neutrophils % Lymphocytes % Monocytes % Eosinophils % Basophils % Nucleated RBC % Sodium Potassium Chloride Carbon Dioxide Anion Gap BUN Creatinine Est GFR (CKD-EPI)AfAm Est GFR (CKD-EPI)NonAf POC Glucometer 306 296 382 Random Glucose Calcium Phosphorus Magnesium Total Bilirubin AST ALT Alkaline Phosphatase Total Protein Albumin 03/14/20 03/14/20 03/14/20 05:43 05:43 06:25 WBC 10.0 RBC 4.32 Hgb 11.5 L Hct 35.6 MCV 82.4 MCH 26.6 MCHC 32.3 RDW 15.3 Plt Count 262 MPV 8.3 D Absolute Neuts (auto) 6.8 Neutrophils % 68.1 D Lymphocytes % 22.4 D Monocytes % 8.3 Eosinophils % 0.7 D Basophils % 0.5 Nucleated RBC % 0 Sodium 134 L Potassium 4.4 Chloride 98 Carbon Dioxide 28 Anion Gap 8 BUN 25.9 H Creatinine 1.8 H Est GFR (CKD-EPI)AfAm 49.40 Est GFR (CKD-EPI)NonAf 42.63 POC Glucometer 320 Random Glucose 317 H Calcium 8.6 Phosphorus 3.1 Magnesium 2.0 Total Bilirubin 0.5 AST 15 ALT 34 Alkaline Phosphatase 150 H Total Protein 5.9 L Albumin 2.7 L Active Medications Generic Name Dose Route Start Last Admin Trade Name Freq PRN Reason Stop Dose Admin Amlodipine Besylate 5 mg 03/13/20 10:00 03/14/20 09:38 Norvasc - PO 5 mg DAILY [facility] Administration Aspirin 81 mg 03/13/20 10:00 03/14/20 09:37 Ecotrin - PO 81 mg DAILY [facility] Administration Atorvastatin Calcium 20 mg 03/12/20 22:00 03/13/20 21:04 Lipitor - PO 20 mg HS [facility] Administration Chlorhexidine Gluconate 1 applic 03/12/20 22:00 03/13/20 21:04 Hibiclens For Decolonization - TP 1 applic HS [facility] Administration Docusate Sodium 100 mg 03/12/20 22:00 03/14/20 09:37 Colace - PO 100 mg BID [facility] Administration Gabapentin 300 mg 03/12/20 22:00 03/14/20 07:24 Neurontin - PO 300 mg TID [facility] Administration HCTZ/Losartan Potassium 1 tab 03/13/20 10:00 03/14/20 09:37 Hyzaar - PO 1 tab DAILY [facility] Administration Hydromorphone HCl 1 mg 03/13/20 09:25 03/14/20 02:24 Dilaudid Vial - IVPUSH 1 mg Q3H PRN Administration PAIN- Piperacillin Sod/Tazobactam 50 mls @ 100 mls/hr 03/12/20 20:00 03/14/20 09:35 Sod 3.375 gm/ Dextrose IVPB 100 mls/hr Q8H-IV [facility] Administration Protocol Insulin Aspart 1 vial 03/13/20 16:56 03/14/20 07:24 Novolog Vial Sliding Scale - SQ 8 units ACHS [facility] Administration Protocol Insulin Detemir 15 units 03/14/20 22:00 Levemir Vial SQ HS [facility] Mupirocin 1 applic 03/12/20 22:00 03/14/20 09:36 Bactroban Ointment (For Decolonization) - NS 03/17/20 21:59 1 applic BID [facility] Administration Non-Formulary Medication 1 each 03/13/20 10:00 Insulin Pump Syringe, 1.8 Ml [Thinset] NR DAILY [facility] Ondansetron HCl 4 mg 03/12/20 19:39 Zofran Injection IVPUSH Q4H PRN NAUSEA AND/OR VOMITING Promethazine HCl 12.5 mg 03/12/20 19:39 Phenergan Injection - IVPB Q6H PRN NAUSEA AND/OR VOMITING Rivaroxaban 10 mg 03/13/20 10:00 03/14/20 09:38 Xarelto PO 10 mg DAILY [facility] Administration Silver Sulfadiazine 1 applic 03/13/20 10:00 03/14/20 10:58 Silvadene - TP 1 applic DAILY [facility] Administration ASSESSMENT/PLAN: 49 y/o male PMH of insulin treated DM w/peripheral neuropathy, HTN, peripheral vascular disease sent by Dr. Sorensen for graft revision 10/23 to thrombosis of the previous graft. Pt underwent revision fem-pop bypass with PTFe (Joe graft) and Femoral endarterectomy with vein patch angioplasty, is admitted to the ICU for monitoring. #Neuro AOx3 Cont gabapentin, dilaudid per surgery #Cardio HTN, PAD Losartan + Norvasc Lipitor + ASA #Pulmonary Covid NEG Incentive spirometry #Renal UO 900cc #ID [id number] Left calf ischemic wound 3x3 w/ eschar- stable- surgery following Left groin surgical site- dressing intact- minimal serosanguinous drainage Left leg surgical wound- dressing intact with minimal serosanguinous drainage hx of multiple fem-pop bypass s/p Lt fem-pop bypass w/ reversed SV 12/03/18 ([place]) cont silvadene, chlorhexidine #Endo BGM Q4 ISS Add levemir 15 units HS #PPX Rivaroxaban PT #FEN PO Continue to monitor electrolytes DM diet #Disposition Transfer to med/surg Visit type - Emergency Visit Emergency Visit: No - New Patient This patient is new to me today: No - Critical Care Critical Care patient: Yes Total Critical Care Time (in minutes): 35 Critical Care Statement: The care of this patient involved high complexity decision making to prevent further life threatening deterioration of the patient's condition and/or to evaluate & treat vital organ system(s) failure or risk of failure. ATTENDING PHYSICIAN STATEMENT I saw and evaluated the patient. I reviewed the resident's note and discussed the case with the resident. I agree with the resident's findings and plan as documented. SUBJECTIVE: OBJECTIVE: ASSESSMENT AND PLAN:
--- NOTE | 2020-03-14 11:06 | PN ---
Teaching Attending Note Name of Resident: Sami Martins ATTENDING PHYSICIAN STATEMENT I saw and evaluated the patient. I reviewed the resident's note and discussed the case with the resident. I agree with the resident's findings and plan as documented. SUBJECTIVE: Pt seen and examined in the ICU. Pain controlled. No fevers or chills. Denies shortness of breath or chest pain. Fingersticks have been uncontrolled. OBJECTIVE: Vital Signs Period Temp Pulse Resp BP Sys/Ken Pulse Ox Last 24 Hr 97.8 F-100.0 F 87-111 13-104 104-144/49-104 95-95 Intake & Output 03/11/20 03/12/20 03/13/20 03/14/20 23:59 23:59 23:59 23:59 Intake Total 570 2700 3469 904 Output Total 900 1300 1380 Balance 570 1800 2169 -476 Gen: NAD at rest Heart: RRR Lung: decreased breath sounds at the bases Abd: soft, nontender Ext: foot warm, palpable pulses CBC, BMP 03/14/20 05:43 03/14/20 05:43 Active Medications Amlodipine Besylate (Norvasc -) 5 mg PO DAILY [facility] Last Admin: 03/14/20 09:38 Dose: 5 mg Documented by: Aspirin (Ecotrin -) 81 mg PO DAILY [facility] Last Admin: 03/14/20 09:37 Dose: 81 mg Documented by: Atorvastatin Calcium (Lipitor -) [address] [facility] Last Admin: 03/13/20 21:04 Dose: 20 mg Documented by: Chlorhexidine Gluconate (Hibiclens For Decolonization -) [address] [facility] Last Admin: 03/13/20 21:04 Dose: 1 applic Documented by: Docusate Sodium (Colace -) 100 mg PO BID [facility] Last Admin: 03/14/20 09:37 Dose: 100 mg Documented by: Gabapentin (Neurontin -) 300 mg PO TID [facility] Last Admin: 03/14/20 07:24 Dose: 300 mg Documented by: HCTZ/Losartan Potassium (Hyzaar -) 1 tab PO DAILY [facility] Last Admin: 03/14/20 09:37 Dose: 1 tab Documented by: Hydromorphone HCl (Dilaudid Vial -) 1 mg IVPUSH Q3H PRN PRN Reason: PAIN- Last Admin: 03/14/20 02:24 Dose: 1 mg Documented by: Piperacillin Sod/Tazobactam (Sod 3.375 gm/ Dextrose) 50 mls @ 100 mls/hr IVPB Q8H-IV [facility]; Protocol Last Admin: 03/14/20 09:35 Dose: 100 mls/hr Documented by: Insulin Aspart (Novolog Vial Sliding Scale -) 1 vial SQ ACHS [facility]; Protocol Last Admin: 03/14/20 07:24 Dose: 8 units Documented by: Insulin Detemir (Levemir Vial) 15 units SQ HS [facility] Mupirocin (Bactroban Ointment (For Decolonization) -) 1 applic NS BID [facility] Stop: 03/17/20 21:59 Last Admin: 03/14/20 09:36 Dose: 1 applic Documented by: Non-Formulary Medication (Insulin Pump Syringe, 1.8 Ml [Thinset]) 1 each NR DAILY [facility] Ondansetron HCl (Zofran Injection) 4 mg IVPUSH Q4H PRN PRN Reason: NAUSEA AND/OR VOMITING Promethazine HCl (Phenergan Injection -) 12.5 mg IVPB Q6H PRN PRN Reason: NAUSEA AND/OR VOMITING Rivaroxaban (Xarelto) 10 mg PO DAILY [facility] Last Admin: 03/14/20 09:38 Dose: 10 mg Documented by: Silver Sulfadiazine (Silvadene -) 1 applic TP DAILY [facility] Last Admin: 03/14/20 10:58 Dose: 1 applic Documented by: ASSESSMENT AND PLAN: Ischemic Left Calf Ulcer/PAD s/p Redo Left Fem-Pop Bypass with PTFE/Femoral Endarterectomy with Vein Patch Angioplasty Acute Kidney Injury HTN DM Hyperlipidemia - pulse checks - pain control - incentive spirometry - PO as tolerated - continue anticoagulation, ASA - IVF - monitor urine output, creatinine - rehab/PT - can monitor on floor
--- NOTE | 2020-03-14 12:40 | PN ---
Progress Note, Physician History of Present Illness: stable no new issues - Current Medication List Current Medications: Active Medications Amlodipine Besylate (Norvasc -) 5 mg PO DAILY [facility] Last Admin: 03/14/20 09:38 Dose: 5 mg Documented by: Aspirin (Ecotrin -) 81 mg PO DAILY [facility] Last Admin: 03/14/20 09:37 Dose: 81 mg Documented by: Atorvastatin Calcium (Lipitor -) 20 mg PO [facility] Last Admin: 03/13/20 21:04 Dose: 20 mg Documented by: Chlorhexidine Gluconate (Hibiclens For Decolonization -) 1 applic TP [facility] Last Admin: 03/13/20 21:04 Dose: 1 applic Documented by: Docusate Sodium (Colace -) 100 mg PO BID [facility] Last Admin: 03/14/20 09:37 Dose: 100 mg Documented by: Gabapentin (Neurontin -) 300 mg PO TID [facility] Last Admin: 03/14/20 07:24 Dose: 300 mg Documented by: HCTZ/Losartan Potassium (Hyzaar -) 1 tab PO DAILY [facility] Last Admin: 03/14/20 09:37 Dose: 1 tab Documented by: Hydromorphone HCl (Dilaudid Vial -) 1 mg IVPUSH Q3H PRN PRN Reason: PAIN- Last Admin: 03/14/20 11:08 Dose: 1 mg Documented by: Piperacillin Sod/Tazobactam (Sod 3.375 gm/ Dextrose) 50 mls @ 100 mls/hr IVPB Q8H-IV [facility]; Protocol Last Admin: 03/14/20 09:35 Dose: 100 mls/hr Documented by: Insulin Aspart (Novolog Vial Sliding Scale -) 1 vial SQ [facility]; Protocol Last Admin: 03/14/20 11:41 Dose: 10 units Documented by: Insulin Detemir (Levemir Vial) 15 units SQ [facility] Mupirocin (Bactroban Ointment (For Decolonization) -) 1 applic NS BID [facility] Stop: 03/17/20 21:59 Last Admin: 03/14/20 09:36 Dose: 1 applic Documented by: Non-Formulary Medication (Insulin Pump Syringe, 1.8 Ml [Thinset]) 1 each NR DAILY [facility] Ondansetron HCl (Zofran Injection) 4 mg IVPUSH Q4H PRN PRN Reason: NAUSEA AND/OR VOMITING Promethazine HCl (Phenergan Injection -) 12.5 mg IVPB Q6H PRN PRN Reason: NAUSEA AND/OR VOMITING Rivaroxaban (Xarelto) 10 mg PO DAILY [facility] Last Admin: 03/14/20 09:38 Dose: 10 mg Documented by: Silver Sulfadiazine (Silvadene -) 1 applic TP DAILY [facility] Last Admin: 03/14/20 10:58 Dose: 1 applic Documented by: - Objective Vital Signs: Vital Signs Temperature 98.2 F 03/14/20 10:00 Pulse Rate 105 H 03/14/20 12:00 Respiratory Rate 18 03/14/20 12:00 Blood Pressure 117/70 03/14/20 12:00 O2 Sat by Pulse Oximetry (%) 95 03/14/20 09:00 Constitutional: Yes: No Distress, Calm Cardiovascular: Yes: S1, S2 Respiratory: Yes: Regular, CTA Bilaterally Gastrointestinal: Yes: Normal Bowel Sounds, Soft Musculoskeletal: Yes: WNL Extremities: Yes: Other Neurological: Yes: Alert, Oriented Psychiatric: Yes: Alert, Oriented Labs: CBC, BMP 03/14/20 05:43 03/14/20 05:43 INR, PTT INR 1.01 (0.83-1.09) 03/06/20 16:35 Assessment/Plan Problem List - Problems (1) PAD (peripheral artery disease) Code(s): I73.9 - PERIPHERAL VASCULAR DISEASE, UNSPECIFIED (2) Diabetes Code(s): E11.9 - TYPE 2 DIABETES MELLITUS WITHOUT COMPLICATIONS (3) Diabetic neuropathy Code(s): E11.40 - TYPE 2 DIABETES MELLITUS WITH DIABETIC NEUROPATHY, UNSP (4) HTN (hypertension) Code(s): I10 - ESSENTIAL (PRIMARY) HYPERTENSION (5) HLD (hyperlipidemia) Code(s): E78.5 - HYPERLIPIDEMIA, UNSPECIFIED (6) CAD (coronary artery disease) Code(s): I25.10 - ATHSCL HEART DISEASE OF [place] CORONARY ARTERY W/O ANG PCTRS plan continue abx monitor pulses rest as per the team wound care
--- NOTE | 2020-03-14 13:54 | PN ---
Progress Note (short form) - Note Progress Note: s: no cp sob palps dizzy Current Medications Generic Name Dose Route Start Last Admin Trade Name Freq PRN Reason Stop Dose Admin Amlodipine Besylate 5 mg 03/13/20 10:00 03/14/20 09:38 Norvasc - PO 5 mg DAILY [place] Administration Aspirin 81 mg 03/13/20 10:00 03/14/20 09:37 Ecotrin - PO 81 mg DAILY [place] Administration Atorvastatin Calcium 20 mg 03/12/20 22:00 03/13/20 21:04 Lipitor - PO 20 mg HS [place] Administration Chlorhexidine Gluconate 1 applic 03/12/20 22:00 03/13/20 21:04 Hibiclens For Decolonization - TP 1 applic HS [place] Administration Docusate Sodium 100 mg 03/12/20 22:00 03/14/20 09:37 Colace - PO 100 mg BID [place] Administration Gabapentin 300 mg 03/12/20 22:00 03/14/20 07:24 Neurontin - PO 300 mg TID [place] Administration HCTZ/Losartan Potassium 1 tab 03/13/20 10:00 03/14/20 09:37 Hyzaar - PO 1 tab DAILY [place] Administration Hydromorphone HCl 1 mg 03/13/20 09:25 03/14/20 11:08 Dilaudid Vial - IVPUSH 1 mg Q3H PRN Administration PAIN- Piperacillin Sod/Tazobactam 50 mls @ 100 mls/hr 03/12/20 20:00 03/14/20 09:35 Sod 3.375 gm/ Dextrose IVPB 100 mls/hr Q8H-IV [place] Administration Protocol Insulin Aspart 1 vial 03/13/20 16:56 03/14/20 11:41 Novolog Vial Sliding Scale - SQ 10 units ACHS [place] Administration Protocol Insulin Detemir 15 units 03/14/20 22:00 Levemir Vial SQ HS [place] Mupirocin 1 applic 03/12/20 22:00 03/14/20 09:36 Bactroban Ointment (For Decolonization) - NS 03/17/20 21:59 1 applic BID [place] Administration Non-Formulary Medication 1 each 03/13/20 10:00 Insulin Pump Syringe, 1.8 Ml [Thinset] NR DAILY [place] Ondansetron HCl 4 mg 03/12/20 19:39 Zofran Injection IVPUSH Q4H PRN NAUSEA AND/OR VOMITING Promethazine HCl 12.5 mg 03/12/20 19:39 Phenergan Injection - IVPB Q6H PRN NAUSEA AND/OR VOMITING Rivaroxaban 10 mg 03/13/20 10:00 03/14/20 09:38 Xarelto PO 10 mg DAILY [place] Administration Silver Sulfadiazine 1 applic 03/13/20 10:00 03/14/20 10:58 Silvadene - TP 1 applic DAILY [place] Administration Vital Signs Period Temp Pulse Resp BP Sys/Ken Pulse Ox Last 24 Hr 97.8 F-100.0 F 87-111 13-104 104-144/49-104 95-95 Constitutional: Yes: No Distress, Calm Eyes: Yes: Conjunctiva Clear Neck: Yes: Supple, Trachea Midline Respiratory: Yes: Regular, CTA Bilaterally Gastrointestinal: Yes: Normal Bowel Sounds, Soft Cardiovascular: Yes: Regular Rate and Rhythm JVD: No Heart Sounds: Yes: S1, S2 Edema: No Neurological: Yes: Alert, Oriented Psychiatric: No: Agitated Assessment/Plan EKG sinus, IRBBB, no ischemic changes CXR: no acute process echo 11/2018: nl lv/rv, mild mr, mod ms, lvh mibi 11/2018: no scar/ischemia tele: sinus tach preop evaluation, PAD, leg pain - s/p s/p redo fem-pop bypass with PTFE, fem endarterectomy with vein patch angioplasty - surgery recs - cont xarelto, aspirin, statin per vascular HTN - cont home meds HLD - cont statin DM - manage per primary
--- NOTE | 2020-03-14 16:44 | PATH ---
Surgical Pathology Report Patient Name: [facility]. Rec. 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 Specimen(s) Received PLAQUE Clinical History Pain of left leg, nonhealing ulcer left lower leg Final Diagnosis PLAQUE, FEMORAL ARTERY, LEFT, ENDARTERECTOMY: ATHEROMATOUS AND CALCIFIED PLAQUE. Electronically Signed Shira Banegas M.D. Gross Description Received in formalin labeled "plaque," is a 4.6 x 3.0 x 0.5 cm aggregate of multiple christianson-yellow portions of focally calcified plaque. Web Press Roll Tender sections are submitted in one cassette, following decalcification. /03/13/2020 saudi/03/13/2020
--- NOTE | 2020-03-14 21:23 | PN ---
Progress Note, Physician History of Present Illness: Pt having some pain - Current Medication List Current Medications: Active Medications Amlodipine Besylate (Norvasc -) 5 mg PO DAILY [facility] Last Admin: 03/14/20 09:38 Dose: 5 mg Documented by: Aspirin (Ecotrin -) 81 mg PO DAILY [facility] Last Admin: 03/14/20 09:37 Dose: 81 mg Documented by: Atorvastatin Calcium (Lipitor -) 20 mg PO [facility] Last Admin: 03/13/20 21:04 Dose: 20 mg Documented by: Chlorhexidine Gluconate (Hibiclens For Decolonization -) 1 applic TP [facility] Last Admin: 03/13/20 21:04 Dose: 1 applic Documented by: Docusate Sodium (Colace -) 100 mg PO BID [facility] Last Admin: 03/14/20 09:37 Dose: 100 mg Documented by: Gabapentin (Neurontin -) 300 mg PO TID [facility] Last Admin: 03/14/20 14:57 Dose: 300 mg Documented by: HCTZ/Losartan Potassium (Hyzaar -) 1 tab PO DAILY [facility] Last Admin: 03/14/20 09:37 Dose: 1 tab Documented by: Hydromorphone HCl (Dilaudid Vial -) 1 mg IVPUSH Q3H PRN PRN Reason: PAIN- Last Admin: 03/14/20 15:03 Dose: 1 mg Documented by: Piperacillin Sod/Tazobactam (Sod 3.375 gm/ Dextrose) 50 mls @ 100 mls/hr IVPB Q8H-IV [facility]; Protocol Last Admin: 03/14/20 17:35 Dose: 100 mls/hr Documented by: Insulin Aspart (Novolog Vial Sliding Scale -) 1 vial SQ [facility]; Protocol Last Admin: 03/14/20 16:58 Dose: 10 units Documented by: Insulin Detemir (Levemir Vial) 15 units SQ [facility] Mupirocin (Bactroban Ointment (For Decolonization) -) 1 applic NS BID [facility] Stop: 03/17/20 21:59 Last Admin: 03/14/20 09:36 Dose: 1 applic Documented by: Non-Formulary Medication (Insulin Pump Syringe, 1.8 Ml [Thinset]) 1 each NR DAILY [facility] Ondansetron HCl (Zofran Injection) 4 mg IVPUSH Q4H PRN PRN Reason: NAUSEA AND/OR VOMITING Promethazine HCl (Phenergan Injection -) 12.5 mg IVPB Q6H PRN PRN Reason: NAUSEA AND/OR VOMITING Rivaroxaban (Xarelto) 10 mg PO DAILY [facility] Last Admin: 03/14/20 09:38 Dose: 10 mg Documented by: Silver Sulfadiazine (Silvadene -) 1 applic TP DAILY [facility] Last Admin: 03/14/20 10:58 Dose: 1 applic Documented by: - Objective Vital Signs: Vital Signs Temperature 98.7 F 03/14/20 16:00 Pulse Rate 103 H 03/14/20 20:00 Respiratory Rate 15 03/14/20 20:00 Blood Pressure 121/81 03/14/20 20:00 O2 Sat by Pulse Oximetry (%) 95 03/14/20 09:00 Cardiovascular: Yes: WNL, Regular Rate and Rhythm Respiratory: Yes: WNL, Regular, CTA Bilaterally Gastrointestinal: Yes: WNL, Normal Bowel Sounds, Soft, Abdomen, Obese Extremities: Yes: Other (LLE w/ dressing) Edema: LLE: Trace, RLE: Trace Labs: CBC, BMP 03/14/20 05:43 03/14/20 05:43 INR, PTT INR 1.01 (0.83-1.09) 03/06/20 16:35 Problem List - Problems (1) PAD (peripheral artery disease) Assessment/Plan: S/P redo fem-pop bypass with PTFE, fem endarterectomy with vein patch angioplasty LLE calf ulcer Cont IV antibxs Cont wound care As per surgery Code(s): I73.9 - PERIPHERAL VASCULAR DISEASE, UNSPECIFIED (2) Diabetes Assessment/Plan: Cont sliding scale w/ coverage Pt has insulin pump Code(s): E11.9 - TYPE 2 DIABETES MELLITUS WITHOUT COMPLICATIONS (3) Diabetic neuropathy Assessment/Plan: Cont gabapentin Code(s): E11.40 - TYPE 2 DIABETES MELLITUS WITH DIABETIC NEUROPATHY, UNSP (4) HTN (hypertension) Assessment/Plan: Bp stable Cont losartan/norvasc Code(s): I10 - ESSENTIAL (PRIMARY) HYPERTENSION (5) HLD (hyperlipidemia) Assessment/Plan: Cont lipitor Code(s): E78.5 - HYPERLIPIDEMIA, UNSPECIFIED (6) CAD (coronary artery disease) Code(s): I25.10 - ATHSCL HEART DISEASE OF [place] CORONARY ARTERY W/O ANG PCTRS
[2020-03-14] MEDS: CHLORHEXIDINE GLUCONATE 4% CLEANSER FOR DECOLONIZATION TP SCH (21:27)
[2020-03-14] MEDS: ATORVASTATIN CA 20 MG TABLET (FP) PO SCH (21:30)
[2020-03-14] MEDS ORDERED: INSULIN (LEVEMIR) 100 UNITS/ML UNITS SQ SCH (22:00)
[2020-03-15] MEDS: PIPERACILLIN/TAZOB 3.375 GM 3.375 GM in DEXTROSE 5%-WATER - 50 ML IVPB SCH ×3 (01:11→17:02)
[2020-03-15] MEDS ORDERED: PIPERACILLIN/TAZOBACTAM 3.375 GM VIAL IVPB ONE ×3 (01:27→16:57)
[2020-03-15] MEDS ORDERED: DEXTROSE 5%-WATER - 50 ML IVPB ONE ×3 (01:27→16:57)
[2020-03-15] MEDS: HYDROmorphone HCl 2 MG/ML VIAL IVPUSH PRN (05:37)
[2020-03-15] MEDS: GABAPENTIN 300 MG CAPSULE PO SCH ×3 (05:38→21:03)
[2020-03-15] MEDS: INSULIN SLIDING SCALE (NOVOLOG) 1 VIAL SQ SCH ×4 (06:43→21:03)
[2020-03-15 07:20] LABS: HEMATOCRIT 36.5 % (35.4-49); HEMOGLOBIN 11.6 GM/dL (11.7-16.9); MCHC 31.8 g/dl (32.0-35.9); MEAN CELL VOLUME 81.8 fl (80-96); MEAN PLT VOLUME 8.5 fl (7.5-11.1); PLATELET COUNT 274 K/MM3 (134-434); RBC 4.46 M/mm3 (4.00-5.60); WHITE BLOOD COUNT 11.4 K/mm3 (4.0-10.0)
[2020-03-15 07:42] LABS: ALBUMIN 2.7 g/dl (3.4-5.0); BILIRUBIN,TOTAL 0.7 mg/dL (0.2-1); BLOOD UREA NITROGEN 27.6 mg/dL (7-18); CREATININE 1.8 mg/dL (0.55-1.3); MAGNESIUM 2.2 mg/dL (1.8-2.4); POTASSIUM 4.4 mmol/L (3.5-5.1); TOT PROT 6.2 g/dl (6.4-8.2)
[2020-03-15 07:43] LABS: PHOSPHOROUS 3.2 mg/dL (2.5-4.9)
--- NOTE | 2020-03-15 08:26 | PN ---
Progress Note (short form) - Note Progress Note: Vascular Surgery: OOB and ambulated yesterday. Some left groin pain. Tolerating a diet, no nausea. Passing flatus/no Bm Vital Signs Period Temp Pulse Resp BP Sys/Ken Pulse Ox Last 24 Hr 98.0 F-98.7 F 102-113 14-21 98-144/52-91 95-97 GEN: A&0x3, NAD LLE: dressing c/d/i. foot warm and +DP pulse with doppler RLE: warm Dp pulse with doppler CBC, BMP 03/15/20 05:20 03/15/20 05:20 A/P: 49 yo male s/p Redo fem-pop bypass with PTFe. Femoral endarterectomy with vein patch angioplasty Diet as tolerated, OOB and ambulate/PT monitor bun/cret, improved but remains elevated IV abx aspirin/xarelto discontinue dilaudid/start oxycodone as needed D/w Dr. Sorensen
[2020-03-15] MEDS: SILVER SULFADIAZINE 1% TOP CREAM 50 GM JAR TP SCH (10:36)
[2020-03-15] MEDS: amLODIPine BESYLATE 5 MG TABLET (FP) PO SCH (10:36)
[2020-03-15] MEDS: LOSARTAN 50MG/HCTZ 12.5MG 1 TAB (FP) PO SCH (10:36)
[2020-03-15] MEDS: ASPIRIN COATED 81 MG TABLET.EC PO SCH (10:36)
[2020-03-15] MEDS: DOCUSATE SODIUM 100 MG CAPSULE (FP) PO SCH ×2 (10:36→21:04)
[2020-03-15] MEDS: RIVAROXABAN 10 MG TABLET PO SCH (10:39)
--- NOTE | 2020-03-15 11:09 | PN ---
Physical Exam: SUBJECTIVE: Patient seen and examined at bedside. No events overnight, no new complaints. OBJECTIVE: Vital Signs Period Temp Pulse Resp BP Sys/Ken Pulse Ox Last 24 Hr 98.0 F-98.7 F 102-113 14-21 98-142/52-91 97 GENERAL: The patient is awake, alert, and fully oriented, in no acute distress. HEAD: Normal with no signs of trauma. EYES: PERRL, extraocular movements intact, sclera anicteric, conjunctiva clear. No ptosis. LUNGS: Breath sounds equal, clear to auscultation bilaterally, no wheezes, no crackles, no accessory muscle use. HEART: Regular rate and rhythm, S1, S2 without murmur, rub or gallop. ABDOMEN: Soft, nontender, nondistended, normoactive bowel sounds, no guarding, no rebound, no hepatosplenomegaly, no masses. EXTREMITIES: dopplerable pulses on the left, pulses difficult to Doppler on the right. There are surgical dressings on the medial side of the left leg and in the left groin. Both CDI. There is moderate tenderness to palpation at the surgical site in the left groin. NEUROLOGICAL: Cranial nerves II through X grossly intact. Normal speech, gait not observed. Laboratory Results - last 24 hr 03/14/20 03/14/20 03/14/20 05:43 11:18 16:30 WBC RBC Hgb Hct MCV MCH MCHC RDW Plt Count MPV Sodium Potassium Chloride Carbon Dioxide Anion Gap BUN Creatinine Est GFR (CKD-EPI)AfAm Est GFR (CKD-EPI)NonAf POC Glucometer 388 369 Random Glucose Hemoglobin A1c % 12.2 H Calcium Phosphorus Magnesium Total Bilirubin AST ALT Alkaline Phosphatase Total Protein Albumin 03/14/20 03/15/20 03/15/20 21:07 05:20 05:20 WBC 11.4 H RBC 4.46 Hgb 11.6 L Hct 36.5 MCV 81.8 MCH 26.0 MCHC 31.8 L RDW 15.0 Plt Count 274 MPV 8.5 Sodium 132 L Potassium 4.4 Chloride 98 Carbon Dioxide 30 Anion Gap 5 L BUN 27.6 H Creatinine 1.8 H Est GFR (CKD-EPI)AfAm 49.40 Est GFR (CKD-EPI)NonAf 42.63 POC Glucometer 302 Random Glucose 297 H Hemoglobin A1c % Calcium 9.0 Phosphorus 3.2 Magnesium 2.2 Total Bilirubin 0.7 AST 15 ALT 32 Alkaline Phosphatase 156 H Total Protein 6.2 L Albumin 2.7 L 03/15/20 06:41 WBC RBC Hgb Hct MCV MCH MCHC RDW Plt Count MPV Sodium Potassium Chloride Carbon Dioxide Anion Gap BUN Creatinine Est GFR (CKD-EPI)AfAm Est GFR (CKD-EPI)NonAf POC Glucometer 297 Random Glucose Hemoglobin A1c % Calcium Phosphorus Magnesium Total Bilirubin AST ALT Alkaline Phosphatase Total Protein Albumin Active Medications Generic Name Dose Route Start Last Admin Trade Name Freq PRN Reason Stop Dose Admin Amlodipine Besylate 5 mg 03/13/20 10:00 03/15/20 10:36 Norvasc - PO 5 mg DAILY [place] Administration Aspirin 81 mg 03/13/20 10:00 03/15/20 10:36 Ecotrin - PO 81 mg DAILY [place] Administration Atorvastatin Calcium 20 mg 03/12/20 22:00 03/14/20 21:30 Lipitor - PO 20 mg HS [place] Administration Chlorhexidine Gluconate 1 applic 03/12/20 22:00 03/14/20 21:27 Hibiclens For Decolonization - TP 1 applic HS [place] Administration Docusate Sodium 100 mg 03/12/20 22:00 03/15/20 10:36 Colace - PO 100 mg BID [place] Administration Gabapentin 300 mg 03/12/20 22:00 03/15/20 05:38 Neurontin - PO 300 mg TID [place] Administration HCTZ/Losartan Potassium 1 tab 03/13/20 10:00 03/15/20 10:36 Hyzaar - PO 1 tab DAILY [place] Administration Hydromorphone HCl 1 mg 03/13/20 09:25 03/15/20 05:37 Dilaudid Vial - IVPUSH 1 mg Q3H PRN Administration PAIN- Piperacillin Sod/Tazobactam 50 mls @ 100 mls/hr 03/12/20 20:00 03/15/20 10:35 Sod 3.375 gm/ Dextrose IVPB 100 mls/hr Q8H-IV [place] Administration Protocol Insulin Aspart 1 vial 03/13/20 16:56 03/15/20 06:43 Novolog Vial Sliding Scale - SQ 7 units ACHS [place] Administration Protocol Insulin Detemir 15 units 03/14/20 22:00 03/14/20 21:31 Levemir Vial SQ 15 units HS [place] Administration Mupirocin 1 applic 03/12/20 22:00 03/14/20 21:27 Bactroban Ointment (For Decolonization) - NS 03/17/20 21:59 1 applic BID [place] Administration Non-Formulary Medication 1 each 03/13/20 10:00 Insulin Pump Syringe, 1.8 Ml [Thinset] NR DAILY [place] Ondansetron HCl 4 mg 03/12/20 19:39 Zofran Injection IVPUSH Q4H PRN NAUSEA AND/OR VOMITING Promethazine HCl 12.5 mg 03/12/20 19:39 Phenergan Injection - IVPB Q6H PRN NAUSEA AND/OR VOMITING Rivaroxaban 10 mg 03/13/20 10:00 03/15/20 10:39 Xarelto PO 10 mg DAILY [place] Administration Silver Sulfadiazine 1 applic 03/13/20 10:00 03/15/20 10:36 Silvadene - TP 1 applic DAILY [place] Administration ASSESSMENT/PLAN: 49 y/o male PMH of insulin treated DM w/peripheral neuropathy, HTN, peripheral vascular disease sent by Dr. Sorensen for graft revision 10/23 to thrombosis of the previous graft. Pt underwent revision fem-pop bypass with PTFe (Joe graft) and Femoral endarterectomy with vein patch angioplasty, is admitted to the ICU for monitoring. #Neuro -AOx3 -Cont gabapentin, dilaudid per surgery #Cardio -h/o HTN, PAD -c/w home Losartan + Norvasc -c/w home Lipitor + ASA -pulses on affected leg dopplerable. patient denies pain in either leg -Left calf ischemic wound 3x3 w/ eschar- stable- surgery following -Left groin surgical site- dressing clean, dry, intact. tenderness to palpation is normal post surgical symptoms per vascular. -Left leg surgical wound-dressing intact with minimal serosanguinous drainage -cont silvadene, chlorhexidine -Per vascular, patient ok for transfer to med surg. #Pulmonary -Covid NEG -Incentive spirometry -no other active issues #ID -Zosyn 3.375 q8h monotherapy (day 3) -ID consulted -ABX per ID. #Endo -BGM Q4 -ISS -Add levemir 15 units HS #PPX -Rivaroxaban -PT #FEN -no fluids indicated at this time -Continue to monitor electrolytes -DM diet #Disposition -Transfer to med/surg Visit type - Emergency Visit Emergency Visit: Yes ED Registration Date: 03/06/20 Care time: The patient presented to the Emergency Department on the above date and was hospitalized for further evaluation of their emergent condition. - New Patient This patient is new to me today: No - Critical Care Critical Care patient: Yes Total Critical Care Time (in minutes): 40 Critical Care Statement: The care of this patient involved high complexity decision making to prevent further life threatening deterioration of the patient's condition and/or to evaluate & treat vital organ system(s) failure or risk of failure. - Discharge Referral Referred to [facility] No ATTENDING PHYSICIAN STATEMENT I saw and evaluated the patient. I reviewed the resident's note and discussed the case with the resident. I agree with the resident's findings and plan as documented. SUBJECTIVE: OBJECTIVE: ASSESSMENT AND PLAN:
[2020-03-15] MEDS ORDERED: oxyCODONE HCL 5 MG TABLET PO PRN (11:10)
--- NOTE | 2020-03-15 11:14 | PN ---
Teaching Attending Note Name of Resident: Gurpreet Liriano ATTENDING PHYSICIAN STATEMENT I saw and evaluated the patient. I reviewed the resident's note and discussed the case with the resident. I agree with the resident's findings and plan as documented. SUBJECTIVE: Pt seen and examined in the ICU. Pain controlled. No fevers or chills. Ambulat ing with PT. OBJECTIVE: Vital Signs Period Temp Pulse Resp BP Sys/Ken Pulse Ox Last 24 Hr 98.0 F-98.7 F 102-113 14-21 98-142/52-91 97 Intake & Output 03/12/20 03/13/20 03/14/20 03/15/20 23:59 23:59 23:59 23:59 Intake Total 2700 3469 1004 450 Output Total 900 1300 3800 2100 Balance 1800 4447 -5782 -9434 Gen: NAD at rest Heart: RRR Lung: decreased breath sounds at the bases Abd: soft, nontender Ext: foot warm, palpable pulses CBC, BMP 03/15/20 05:20 03/15/20 05:20 Active Medications Amlodipine Besylate (Norvasc -) 5 mg PO DAILY [facility] Last Admin: 03/15/20 10:36 Dose: 5 mg Documented by: Aspirin (Ecotrin -) 81 mg PO DAILY [facility] Last Admin: 03/15/20 10:36 Dose: 81 mg Documented by: Atorvastatin Calcium (Lipitor -) 20 mg PO HS [facility] Last Admin: 03/14/20 21:30 Dose: 20 mg Documented by: Chlorhexidine Gluconate (Hibiclens For Decolonization -) 1 applic TP [facility] Last Admin: 03/14/20 21:27 Dose: 1 applic Documented by: Docusate Sodium (Colace -) 100 mg PO BID [facility] Last Admin: 03/15/20 10:36 Dose: 100 mg Documented by: Gabapentin (Neurontin -) 300 mg PO TID [facility] Last Admin: 03/15/20 05:38 Dose: 300 mg Documented by: HCTZ/Losartan Potassium (Hyzaar -) 1 tab PO DAILY [facility] Last Admin: 03/15/20 10:36 Dose: 1 tab Documented by: Piperacillin Sod/Tazobactam (Sod 3.375 gm/ Dextrose) 50 mls @ 100 mls/hr IVPB Q8H-IV [place]; Protocol Last Admin: 03/15/20 10:35 Dose: 100 mls/hr Documented by: Insulin Aspart (Novolog Vial Sliding Scale -) 1 vial SQ [facility]; Protocol Last Admin: 03/15/20 06:43 Dose: 7 units Documented by: Insulin Detemir (Levemir Vial) 15 units SQ HS [facility] Last Admin: 03/14/20 21:31 Dose: 15 units Documented by: Mupirocin (Bactroban Ointment (For Decolonization) -) 1 applic NS BID [facility] Stop: 03/17/20 21:59 Last Admin: 03/14/20 21:27 Dose: 1 applic Documented by: Non-Formulary Medication (Insulin Pump Syringe, 1.8 Ml [Thinset]) 1 each NR DAILY [facility] Ondansetron HCl (Zofran Injection) 4 mg IVPUSH Q4H PRN PRN Reason: NAUSEA AND/OR VOMITING Oxycodone HCl (Roxicodone -) 5 mg PO Q6H PRN PRN Reason: PAIN LEVEL 1-5 Oxycodone HCl (Roxicodone -) 10 mg PO Q6H PRN PRN Reason: PAIN LEVEL 6-10 Promethazine HCl (Phenergan Injection -) 12.5 mg IVPB Q6H PRN PRN Reason: NAUSEA AND/OR VOMITING Rivaroxaban (Xarelto) 10 mg PO DAILY [facility] Last Admin: 03/15/20 10:39 Dose: 10 mg Documented by: Silver Sulfadiazine (Silvadene -) 1 applic TP DAILY [facility] Last Admin: 03/15/20 10:36 Dose: 1 applic Documented by: ASSESSMENT AND PLAN: Ischemic Left Calf Ulcer/PAD s/p Redo Left Fem-Pop Bypass with PTFE/Femoral Endarterectomy with Vein Patch Angioplasty Acute Kidney Injury HTN DM Hyperlipidemia - pulse checks - pain control - incentive spirometry - PO as tolerated - continue anticoagulation, ASA - monitor urine output, creatinine - rehab/PT - can monitor on floor
--- NOTE | 2020-03-15 11:23 | PN ---
Progress Note (short form) - Note Progress Note: s: no cp sob palps dizzy Current Medications Generic Name Dose Route Start Last Admin Trade Name Freq PRN Reason Stop Dose Admin Amlodipine Besylate 5 mg 03/13/20 10:00 03/15/20 10:36 Norvasc - PO 5 mg DAILY [place] Administration Aspirin 81 mg 03/13/20 10:00 03/15/20 10:36 Ecotrin - PO 81 mg DAILY [place] Administration Atorvastatin Calcium 20 mg 03/12/20 22:00 03/14/20 21:30 Lipitor - PO 20 mg HS [place] Administration Chlorhexidine Gluconate 1 applic 03/12/20 22:00 03/14/20 21:27 Hibiclens For Decolonization - TP 1 applic [facility] Administration Docusate Sodium 100 mg 03/12/20 22:00 03/15/20 10:36 Colace - PO 100 mg BID [place] Administration Gabapentin 300 mg 03/12/20 22:00 03/15/20 05:38 Neurontin - PO 300 mg TID [place] Administration HCTZ/Losartan Potassium 1 tab 03/13/20 10:00 03/15/20 10:36 Hyzaar - PO 1 tab DAILY [place] Administration Piperacillin Sod/Tazobactam 50 mls @ 100 mls/hr 03/12/20 20:00 03/15/20 10:35 Sod 3.375 gm/ Dextrose IVPB 100 mls/hr Q8H-IV [place] Administration Protocol Insulin Aspart 1 vial 03/13/20 16:56 03/15/20 11:15 Novolog Vial Sliding Scale - SQ 8 units ACHS [facility] Administration Protocol Insulin Detemir 15 units 03/14/20 22:00 03/14/20 21:31 Levemir Vial SQ 15 units HS [facility] Administration Mupirocin 1 applic 03/12/20 22:00 03/14/20 21:27 Bactroban Ointment (For Decolonization) - NS 03/17/20 21:59 1 applic BID [place] Administration Non-Formulary Medication 1 each 03/13/20 10:00 Insulin Pump Syringe, 1.8 Ml [Thinset] NR DAILY [place] Ondansetron HCl 4 mg 03/12/20 19:39 Zofran Injection IVPUSH Q4H PRN NAUSEA AND/OR VOMITING Oxycodone HCl 5 mg 03/15/20 11:10 Roxicodone - PO Q6H PRN PAIN LEVEL 1-5 Oxycodone HCl 10 mg 03/15/20 11:10 Roxicodone - PO Q6H PRN PAIN LEVEL 6-10 Promethazine HCl 12.5 mg 03/12/20 19:39 Phenergan Injection - IVPB Q6H PRN NAUSEA AND/OR VOMITING Rivaroxaban 10 mg 03/13/20 10:00 03/15/20 10:39 Xarelto PO 10 mg DAILY [place] Administration Silver Sulfadiazine 1 applic 03/13/20 10:00 03/15/20 10:36 Silvadene - TP 1 applic DAILY [place] Administration Vital Signs Period Temp Pulse Resp BP Sys/Ken Pulse Ox Last 24 Hr 98.0 F-98.7 F 102-113 14-21 98-142/52-91 97 Constitutional: Yes: No Distress, Calm Eyes: Yes: Conjunctiva Clear Neck: Yes: Supple, Trachea Midline Respiratory: Yes: Regular, CTA Bilaterally Gastrointestinal: Yes: Normal Bowel Sounds, Soft Cardiovascular: Yes: Regular Rate and Rhythm JVD: No Heart Sounds: Yes: S1, S2 Edema: No Neurological: Yes: Alert, Oriented Psychiatric: No: Agitated CBC, BMP 03/15/20 05:20 03/15/20 05:20 Assessment/Plan EKG sinus, IRBBB, no ischemic changes CXR: no acute process echo 11/2018: nl lv/rv, mild mr, mod ms, lvh mibi 11/2018: no scar/ischemia tele: sr preop evaluation, PAD, leg pain - s/p s/p redo fem-pop bypass with PTFE, fem endarterectomy with vein patch angioplasty - surgery recs - cont xarelto, aspirin, statin per vascular HTN - cont home meds HLD - cont statin DM - manage per primary
[2020-03-15] MEDS: MUPIROCIN 2% TOPICAL OINTMENT FOR DECOLONIZATION NS SCH (12:08)
[2020-03-15 14:47] LABS: BLOOD UREA NITROGEN 28.8 mg/dL (7-18); CALCIUM 8.5 mg/dL (8.5-10.1); CREATININE 1.9 mg/dL (0.55-1.3); POTASSIUM 4.4 mmol/L (3.5-5.1)
--- NOTE | 2020-03-15 16:07 | PN ---
Progress Note, Physician History of Present Illness: stable post op from bypass wound looks clean - Current Medication List Current Medications: Active Medications Amlodipine Besylate (Norvasc -) 5 mg PO DAILY [facility] Last Admin: 03/15/20 10:36 Dose: 5 mg Documented by: Aspirin (Ecotrin -) 81 mg PO DAILY [facility] Last Admin: 03/15/20 10:36 Dose: 81 mg Documented by: Atorvastatin Calcium (Lipitor -) 20 mg PO [facility] Last Admin: 03/14/20 21:30 Dose: 20 mg Documented by: Chlorhexidine Gluconate (Hibiclens For Decolonization -) 1 applic TP [facility] Last Admin: 03/14/20 21:27 Dose: 1 applic Documented by: Docusate Sodium (Colace -) 100 mg PO BID [facility] Last Admin: 03/15/20 10:36 Dose: 100 mg Documented by: Gabapentin (Neurontin -) 300 mg PO TID [facility] Last Admin: 03/15/20 13:46 Dose: 300 mg Documented by: HCTZ/Losartan Potassium (Hyzaar -) 1 tab PO DAILY [facility] Last Admin: 03/15/20 10:36 Dose: 1 tab Documented by: Piperacillin Sod/Tazobactam (Sod 3.375 gm/ Dextrose) 50 mls @ 100 mls/hr IVPB Q8H-IV [facility]; Protocol Last Admin: 03/15/20 10:35 Dose: 100 mls/hr Documented by: Insulin Aspart (Novolog Vial Sliding Scale -) 1 vial SQ [facility]; Protocol Last Admin: 03/15/20 11:15 Dose: 8 units Documented by: Insulin Detemir (Levemir Vial) 15 units SQ [facility] Last Admin: 03/14/20 21:31 Dose: 15 units Documented by: Mupirocin (Bactroban Ointment (For Decolonization) -) 1 applic NS BID [facility] Stop: 03/17/20 21:59 Last Admin: 03/15/20 12:08 Dose: 1 applic Documented by: Non-Formulary Medication (Insulin Pump Syringe, 1.8 Ml [Thinset]) 1 each NR DAILY [facility] Ondansetron HCl (Zofran Injection) 4 mg IVPUSH Q4H PRN PRN Reason: NAUSEA AND/OR VOMITING Oxycodone HCl (Roxicodone -) 5 mg PO Q6H PRN PRN Reason: PAIN LEVEL 1-5 Oxycodone HCl (Roxicodone -) 10 mg PO Q6H PRN PRN Reason: PAIN LEVEL 6-10 Promethazine HCl (Phenergan Injection -) 12.5 mg IVPB Q6H PRN PRN Reason: NAUSEA AND/OR VOMITING Rivaroxaban (Xarelto) 10 mg PO DAILY [facility] Last Admin: 03/15/20 10:39 Dose: 10 mg Documented by: Silver Sulfadiazine (Silvadene -) 1 applic TP DAILY [facility] Last Admin: 03/15/20 10:36 Dose: 1 applic Documented by: - Objective Vital Signs: Vital Signs Temperature 98.2 F 03/15/20 08:00 Pulse Rate 107 H 03/15/20 14:00 Respiratory Rate 18 03/15/20 14:00 Blood Pressure 134/74 03/15/20 14:00 O2 Sat by Pulse Oximetry (%) 97 03/15/20 09:00 Constitutional: Yes: No Distress, Calm Cardiovascular: Yes: S1, S2 Respiratory: Yes: Regular, CTA Bilaterally Gastrointestinal: Yes: Normal Bowel Sounds, Soft Musculoskeletal: Yes: WNL Extremities: Yes: Other Neurological: Yes: Alert, Oriented Psychiatric: Yes: Alert, Oriented Labs: CBC, BMP 03/15/20 05:20 03/15/20 13:23 INR, PTT INR 1.01 (0.83-1.09) 03/06/20 16:35 Assessment/Plan Problem List - Problems (1) PAD (peripheral artery disease) Code(s): I73.9 - PERIPHERAL VASCULAR DISEASE, UNSPECIFIED (2) Diabetes Code(s): E11.9 - TYPE 2 DIABETES MELLITUS WITHOUT COMPLICATIONS (3) Diabetic neuropathy Code(s): E11.40 - TYPE 2 DIABETES MELLITUS WITH DIABETIC NEUROPATHY, UNSP (4) HTN (hypertension) Code(s): I10 - ESSENTIAL (PRIMARY) HYPERTENSION (5) HLD (hyperlipidemia) Code(s): E78.5 - HYPERLIPIDEMIA, UNSPECIFIED (6) CAD (coronary artery disease) Code(s): I25.10 - ATHSCL HEART DISEASE OF [place] CORONARY ARTERY W/O ANG PCTRS plan continue abx monitor pulses rest as per the team wound care will change to oral
--- NOTE | 2020-03-15 16:46 | OP ---
DATE OF OPERATION: 03/12/2020 SURGEON: Tate Sorensen MD SENIOR TELECOMMUNICATIONS ENGINEER: ALLYN Klein PROCEDURE: Re-do femoropopliteal bypass with prosthetic graft. Femoral endarterectomy with vein patch angioplasty. PREOPERATIVE DIAGNOSIS: Ischemic ulcer of left calf with failed left femoropopliteal bypass. POSTOPERATIVE DIAGNOSIS: Ischemic ulcer of left calf with failed left femoropopliteal bypass. ANESTHESIA: General. ANESTHESIOLOGIST: David Quiñones MD OPERATIVE FINDINGS: There was dense scarring in the left groin with occluded femoropopliteal bypass vein graft. There was a large amount of intimal hyperplastic tissue and plaque in the left common femoral and deep femoral arteries. The below-knee popliteal artery was patent. OPERATIVE PROCEDURE: Following routine patient identification, side and site verification, general anesthesia was induced. Low catheter was placed. Both legs were then prepped with ChloraPrep from groin to ankle and sterilely draped. Timeout was performed. Skin incision was made along the medial aspect of the left calf below the knee. The subcutaneous tissues were then divided with cautery, and the muscle fascia was incised. The popliteal space was entered and the muscles retracted posteriorly. The below-knee popliteal artery was mobilized and secured with vessel loops. It appeared soft with a Doppler signal present. Incision was made through the scar in the left groin, extending up onto the lower abdominal wall. Subcutaneous tissues were divided using cautery for hemostasis. The old bypass graft was identified and was mobilized. It was ligated and then dissected proximally until the femoral artery was reached. The common femoral artery was then exposed up to the inguinal ligament which was incised to gain further access. The artery was completely mobilized and secured with vessel loop. The deep femoral artery was mobilized and secured with a vessel loop. Superficial femoral artery was likewise secured. Due to the disease in the common femoral artery, it was felt that this would require further endarterectomy and there would not be adequate length of vein from both legs to reach to the below-knee popliteal segment. Therefore, decision was made to do the bypass with a prosthetic graft. Patient was systemically heparinized. The common femoral artery was clamped proximally and distal branches controlled with vessel loops. The stump of the bypass graft was excised, and the arteriotomy extended proximally. Endarterectomy was performed with removal of plaque from the common and deep femoral arteries with return of arterial backbleeding. A section of saphenous vein was harvested from the left calf by extension of the incision distally. This was opened to form a patch. This was sutured over the femoral artery in the reverse configuration using running sutures of 6-0 Prolene. Prior to completion of the suture line, the artery was allowed to back bleed and was flushed and filled with heparin solution. Suture line was completed, and the arteries were released. A good Doppler signal was heard in the deep femoral artery. Attention was then turned to the popliteal incision. The popliteal artery was occluded with a bulldog clamp. A longitudinal arteriotomy measuring approximately 12 mm was made. Backbleeding was intact. An 8-mm ring PTFE graft was then used and beveled on 1 end. This was anastomosed to the side of the artery with running suture of 6-0 Prolene. The graft was then tunneled from the groin, between the heads of the gastrocnemius to the popliteal space. The graft was pulled through the tunnel with care not to twist or kink it. Appropriate tension was left on the graft with the leg straightened. Suture line was completed and the graft was occluded with a vascular clamp and the artery was released. Bleeding from the suture line was controlled with Gelfoam and thrombin. The femoral artery was then re-occluded and incision made in the vein patch. The end of the graft was trimmed for length and beveled, anastomosed to the side of the vein patch with running suture of 6-0 Prolene. Prior to completion of the suture line, the artery was allowed to backbleed and flush, and the graft was allowed to backbleed. The wound was filled with heparin solution, and the suture line was completed. All vessels were then released. There was good flow through the graft with a strong Doppler signal in the below-knee popliteal artery. Bleeding from the wounds was controlled with Gelfoam and thrombin. Additional cautery was applied as needed. When hemostasis was adequate, the wounds were closed using subcutaneous sutures of 3-0 Vicryl at the calf incision. The inguinal ligament was reapproximated with [id number] sutures of 0 Vicryl and the subcutaneous tissues closed with 3-0 Vicryl, and all skin incisions were closed with leilani. Sterile dressings were applied, and the patient was taken to the recovery room in stable condition. TATE SORENSEN M.D. [id number] RM
[2020-03-15] MEDS: oxyCODONE HCL 5 MG TABLET PO PRN (20:44)
[2020-03-15] MEDS ORDERED: ONDANSETRON 4 MG/2 ML VIAL IVPUSH PRN (20:49)
[2020-03-15] MEDS: ATORVASTATIN CA 20 MG TABLET (FP) PO SCH (21:02)
[2020-03-15] MEDS ORDERED: INSULIN (LEVEMIR) 100 UNITS/ML UNITS SQ SCH (22:00)
--- NOTE | 2020-03-15 23:17 | PN ---
Progress Note, Physician History of Present Illness: No new complaint - Current Medication List Current Medications: Active Medications Amlodipine Besylate (Norvasc -) 5 mg PO DAILY [facility] Aspirin (Ecotrin -) 81 mg PO DAILY [facility] Atorvastatin Calcium (Lipitor -) 20 mg PO HS [facility] Last Admin: 03/15/20 21:02 Dose: 20 mg Documented by: Docusate Sodium (Colace -) 100 mg PO BID [facility] Last Admin: 03/15/20 21:04 Dose: 100 mg Documented by: Gabapentin (Neurontin -) 300 mg PO TID [facility] Last Admin: 03/15/20 21:03 Dose: 300 mg Documented by: HCTZ/Losartan Potassium (Hyzaar -) 1 tab PO DAILY [facility] Piperacillin Sod/Tazobactam (Sod 3.375 gm/ Dextrose) 50 mls @ 100 mls/hr IVPB Q8H-IV [facility]; Protocol Insulin Aspart (Novolog Vial Sliding Scale -) 1 vial SQ [facility]CHS [facility]; Protocol Last Admin: 03/15/20 21:03 Dose: 12 units Documented by: Insulin Detemir (Levemir Vial) 15 units SQ [facility] Last Admin: 03/15/20 21:04 Dose: 15 units Documented by: Ondansetron HCl (Zofran Injection) 4 mg IVPUSH Q4H PRN PRN Reason: NAUSEA AND/OR VOMITING Oxycodone HCl (Roxicodone -) 5 mg PO Q6H PRN PRN Reason: PAIN LEVEL 1-5 Oxycodone HCl (Roxicodone -) 10 mg PO Q6H PRN PRN Reason: PAIN LEVEL 6-10 Last Admin: 03/15/20 20:44 Dose: 10 mg Documented by: Rivaroxaban (Xarelto) 10 mg PO DAILY [facility] Silver Sulfadiazine (Silvadene -) 1 applic TP DAILY [facility] - Objective Vital Signs: Vital Signs Temperature 98.8 F 03/15/20 18:00 Pulse Rate 106 H 03/15/20 18:00 Respiratory Rate 18 03/15/20 18:00 Blood Pressure 98/84 03/15/20 18:00 O2 Sat by Pulse Oximetry (%) 97 03/15/20 09:00 Cardiovascular: Yes: WNL, Regular Rate and Rhythm Respiratory: Yes: WNL, Regular, CTA Bilaterally Gastrointestinal: Yes: WNL, Normal Bowel Sounds, Soft Extremities: Yes: Other (LLE w/ dressing) Labs: CBC, BMP 03/15/20 05:20 03/15/20 13:23 INR, PTT INR 1.01 (0.83-1.09) 03/06/20 16:35 Problem List - Problems (1) PAD (peripheral artery disease) Assessment/Plan: S/P redo fem-pop bypass with PTFE, fem endarterectomy with vein patch angioplasty LLE calf ulcer Cont IV antibxs Cont wound care As per surgery Code(s): I73.9 - PERIPHERAL VASCULAR DISEASE, UNSPECIFIED (2) Diabetes Assessment/Plan: Cont sliding scale w/ coverage Pt has insulin pump Code(s): E11.9 - TYPE 2 DIABETES MELLITUS WITHOUT COMPLICATIONS (3) Diabetic neuropathy Assessment/Plan: Cont gabapentin Code(s): E11.40 - TYPE 2 DIABETES MELLITUS WITH DIABETIC NEUROPATHY, UNSP (4) HTN (hypertension) Assessment/Plan: Bp stable Cont losartan/norvasc Code(s): I10 - ESSENTIAL (PRIMARY) HYPERTENSION (5) HLD (hyperlipidemia) Assessment/Plan: Cont lipitor Code(s): E78.5 - HYPERLIPIDEMIA, UNSPECIFIED (6) CAD (coronary artery disease) Code(s): I25.10 - ATHSCL HEART DISEASE OF [place] CORONARY ARTERY W/O ANG PCTRS
[2020-03-16] MEDS ORDERED: DEXTROSE 5%-WATER - 50 ML IVPB ONE ×2 (00:52→09:11)
[2020-03-16] MEDS ORDERED: PIPERACILLIN/TAZOBACTAM 3.375 GM VIAL IVPB ONE ×2 (00:52→09:11)
[2020-03-16] MEDS: PIPERACILLIN/TAZOB 3.375 GM 3.375 GM in DEXTROSE 5%-WATER - 50 ML IVPB SCH ×2 (01:04→09:15)
[2020-03-16] MEDS: GABAPENTIN 300 MG CAPSULE PO SCH ×3 (05:40→21:37)
[2020-03-16] MEDS: INSULIN SLIDING SCALE (NOVOLOG) 1 VIAL SQ SCH ×4 (06:01→21:38)
[2020-03-16] MEDS ORDERED: PT OWN MED DRAWER 7, Y5N ONE ×2 (09:11→18:16)
--- NOTE | 2020-03-16 09:11 | PN ---
Progress Note (short form) - Note Progress Note: Vascular Surgery: OOB and ambulated yesterday with PT. Some left groin pain. Tolerating a diet, no nausea. Passing flatus/no Bm Vital Signs Period Temp Pulse Resp BP Sys/Ken Pulse Ox Last 24 Hr 98.1 F-98.9 F 84-116 18-20 98-134/59-88 GEN: A&0x3, NAD LLE: dressing c/d/i. foot warm and +DP pulse with doppler. Inc c/d/i RLE: warm Dp pulse with doppler A/P: 49 yo male s/p Redo fem-pop bypass with PTFe. Femoral endarterectomy with vein patch angioplasty Diet as tolerated, OOB and ambulate/PT monitor bun/cret, improved but remains elevated IV abx changed to oral antibiotics aspirin/xarelto D/w Dr. Sorensen
[2020-03-16] MEDS: RIVAROXABAN 10 MG TABLET PO SCH (09:15)
[2020-03-16] MEDS: ASPIRIN COATED 81 MG TABLET.EC PO SCH (09:15)
[2020-03-16] MEDS: amLODIPine BESYLATE 5 MG TABLET (FP) PO SCH (09:15)
[2020-03-16] MEDS: DOCUSATE SODIUM 100 MG CAPSULE (FP) PO SCH ×2 (09:15→21:37)
[2020-03-16] MEDS: SILVER SULFADIAZINE 1% TOP CREAM 50 GM JAR TP SCH (09:16)
[2020-03-16] MEDS: LOSARTAN 50MG/HCTZ 12.5MG 1 TAB (FP) PO SCH (09:16)
[2020-03-16 09:29] LABS: BASO % 0.8 % (0-2.0); EOS % 1.9 % (0-4.5); HEMATOCRIT 38.2 % (35.4-49); HEMOGLOBIN 12.2 GM/dL (11.7-16.9); LYMPH % 22.7 % (8-40); MCH 26.2 pg (25.7-33.7); MCHC 31.9 g/dl (32.0-35.9); MEAN CELL VOLUME 82.2 fl (80-96); MONO % 7.8 % (3.8-10.2); NEUT % 66.8 % (42.8-82.8); PLATELET COUNT 282 K/MM3 (134-434); RBC 4.65 M/mm3 (4.00-5.60); RDW 15.2 % (11.9-15.9); WHITE BLOOD COUNT 13.1 K/mm3 (4.0-10.0)
[2020-03-16 10:26] LABS: BLOOD UREA NITROGEN 32.2 mg/dL (7-18); CALCIUM 8.8 mg/dL (8.5-10.1); CREATININE 1.8 mg/dL (0.55-1.3); POTASSIUM 4.2 mmol/L (3.5-5.1)
[2020-03-16] MEDS ORDERED: INSULIN (NOVOLOG) ASPART 100 UNITS/ML 10ML VIAL ONE ×3 (11:32→21:19)
--- NOTE | 2020-03-16 11:54 | PN ---
Progress Note, Physician History of Present Illness: c/o hip pain wbc marginally up - Current Medication List Current Medications: Active Medications Amlodipine Besylate (Norvasc -) 5 mg PO DAILY [facility] Last Admin: 03/16/20 09:15 Dose: 5 mg Documented by: Amoxicillin/Clavulanate Potassium (Augmentin - 500mg Tablet) 1 tab PO BID@0800,1730 [facility] Aspirin (Ecotrin -) 81 mg PO DAILY [facility] Last Admin: 03/16/20 09:15 Dose: 81 mg Documented by: Atorvastatin Calcium (Lipitor -) 20 mg PO HS [facility] Last Admin: 03/15/20 21:02 Dose: 20 mg Documented by: Docusate Sodium (Colace -) 100 mg PO BID [facility] Last Admin: 03/16/20 09:15 Dose: 100 mg Documented by: Gabapentin (Neurontin -) 300 mg PO TID [facility] Last Admin: 03/16/20 05:40 Dose: 300 mg Documented by: HCTZ/Losartan Potassium (Hyzaar -) 1 tab PO DAILY [facility] Last Admin: 03/16/20 09:16 Dose: 1 tab Documented by: Insulin Aspart (Novolog Vial Sliding Scale -) 1 vial SQ [facility]; Protocol Last Admin: 03/16/20 11:28 Dose: 10 units Documented by: Insulin Detemir (Levemir Vial) [address] [facility] Ondansetron HCl (Zofran Injection) 4 mg IVPUSH Q4H PRN PRN Reason: NAUSEA AND/OR VOMITING Oxycodone HCl (Roxicodone -) 5 mg PO Q6H PRN PRN Reason: PAIN LEVEL 1-5 Oxycodone HCl (Roxicodone -) 10 mg PO Q6H PRN PRN Reason: PAIN LEVEL 6-10 Last Admin: 03/15/20 20:44 Dose: 10 mg Documented by: Rivaroxaban (Xarelto) 10 mg PO DAILY [facility] Last Admin: 03/16/20 09:15 Dose: 10 mg Documented by: Silver Sulfadiazine (Silvadene -) 1 applic TP DAILY [facility] Last Admin: 03/16/20 09:16 Dose: 1 applic Documented by: - Objective Vital Signs: Vital Signs Temperature 98.9 F 03/16/20 09:45 Pulse Rate 110 H 03/16/20 09:45 Respiratory Rate 20 06/26/20 09:45 Blood Pressure 136/94 03/16/20 09:45 O2 Sat by Pulse Oximetry (%) 97 03/16/20 09:00 Constitutional: Yes: Calm, Mild Distress, Obese Cardiovascular: Yes: S1, S2 Respiratory: Yes: Regular, CTA Bilaterally Gastrointestinal: Yes: Normal Bowel Sounds, Soft Musculoskeletal: Yes: WNL Extremities: Yes: Other Wound/Incision: Yes: Clean/Dry Neurological: Yes: Alert, Oriented Psychiatric: Yes: Alert, Oriented Labs: CBC, BMP 03/16/20 08:45 03/16/20 08:45 INR, PTT INR 1.01 (0.83-1.09) 03/06/20 16:35 Assessment/Plan Problem List - Problems (1) PAD (peripheral artery disease) Code(s): I73.9 - PERIPHERAL VASCULAR DISEASE, UNSPECIFIED (2) Diabetes Code(s): E11.9 - TYPE 2 DIABETES MELLITUS WITHOUT COMPLICATIONS (3) Diabetic neuropathy Code(s): E11.40 - TYPE 2 DIABETES MELLITUS WITH DIABETIC NEUROPATHY, UNSP (4) HTN (hypertension) Code(s): I10 - ESSENTIAL (PRIMARY) HYPERTENSION (5) HLD (hyperlipidemia) Code(s): E78.5 - HYPERLIPIDEMIA, UNSPECIFIED (6) CAD (coronary artery disease) Code(s): I25.10 - ATHSCL HEART DISEASE OF [place] CORONARY ARTERY W/O ANG PCTRS plan changed abx to oral rest as per the team
--- NOTE | 2020-03-16 12:44 | PN ---
Progress Note, Physician Chief Complaint: no cp/sob. No palps - Current Medication List Current Medications: Active Medications Amlodipine Besylate (Norvasc -) 5 mg PO DAILY [facility] Last Admin: 03/16/20 09:15 Dose: 5 mg Documented by: Amoxicillin/Clavulanate Potassium (Augmentin - 500mg Tablet) 1 tab PO BID@0800,1730 [facility] Aspirin (Ecotrin -) 81 mg PO DAILY [facility] Last Admin: 03/16/20 09:15 Dose: 81 mg Documented by: Atorvastatin Calcium (Lipitor -) 20 mg PO HS [facility] Last Admin: 03/15/20 21:02 Dose: 20 mg Documented by: Docusate Sodium (Colace -) 100 mg PO BID [facility] Last Admin: 03/16/20 09:15 Dose: 100 mg Documented by: Gabapentin (Neurontin -) 300 mg PO TID [facility] Last Admin: 03/16/20 05:40 Dose: 300 mg Documented by: HCTZ/Losartan Potassium (Hyzaar -) 1 tab PO DAILY [facility] Last Admin: 03/16/20 09:16 Dose: 1 tab Documented by: Insulin Aspart (Novolog Vial Sliding Scale -) 1 vial SQ [facility]; Protocol Last Admin: 03/16/20 11:28 Dose: 10 units Documented by: Insulin Detemir (Levemir Vial) 25 units SQ [facility] Ondansetron HCl (Zofran Injection) 4 mg IVPUSH Q4H PRN PRN Reason: NAUSEA AND/OR VOMITING Oxycodone HCl (Roxicodone -) 5 mg PO Q6H PRN PRN Reason: PAIN LEVEL 1-5 Oxycodone HCl (Roxicodone -) 10 mg PO Q6H PRN PRN Reason: PAIN LEVEL 6-10 Last Admin: 03/15/20 20:44 Dose: 10 mg Documented by: Rivaroxaban (Xarelto) 10 mg PO DAILY [facility] Last Admin: 03/16/20 09:15 Dose: 10 mg Documented by: Silver Sulfadiazine (Silvadene -) 1 applic TP DAILY [facility] Last Admin: 03/16/20 09:16 Dose: 1 applic Documented by: - Objective Vital Signs: Vital Signs Temperature 98.9 F 03/16/20 09:45 Pulse Rate 110 H 03/16/20 09:45 Respiratory Rate 20 03/16/20 09:45 Blood Pressure 136/94 03/16/20 09:45 O2 Sat by Pulse Oximetry (%) 97 03/16/20 09:00 Constitutional: Yes: No Distress, Calm Cardiovascular: Yes: Regular Rate and Rhythm Respiratory: Yes: CTA Bilaterally Gastrointestinal: Yes: Soft, Abdomen, Obese Edema: No Neurological: Yes: Alert, Oriented ...Motor Strength: WNL Labs: CBC, BMP 03/16/20 08:45 03/16/20 08:45 INR, PTT INR 1.01 (0.83-1.09) 03/06/20 16:35 Laboratory Tests 03/16/20 03/16/20 08:45 08:45 WBC 13.1 H Hgb 12.2 Plt Count 282 Sodium 130 L Potassium 4.2 Creatinine 1.8 H Assessment/Plan Assessment/Plan EKG sinus, IRBBB, no ischemic changes CXR: no acute process echo 11/2018: nl lv/rv, mild mr, mod ms, lvh mibi 11/2018: no scar/ischemia tele: sr preop evaluation, PAD, leg pain: - s/p s/p redo fem-pop bypass with PTFE, fem endarterectomy with vein patch angioplasty - surgery recs - cont xarelto, aspirin, statin per vascular HTN - cont home meds HLD - cont statin DM - manage per primary
--- NOTE | 2020-03-16 15:09 | PN ---
Progress Note, Physician History of Present Illness: STABLE - Current Medication List Current Medications: Active Medications Amlodipine Besylate (Norvasc -) 5 mg PO DAILY [facility] Last Admin: 03/16/20 09:15 Dose: 5 mg Documented by: Amoxicillin/Clavulanate Potassium (Augmentin - 500mg Tablet) 1 tab PO BID@0800,1730 [facility] Aspirin (Ecotrin -) 81 mg PO DAILY [facility] Last Admin: 03/16/20 09:15 Dose: 81 mg Documented by: Atorvastatin Calcium (Lipitor -) 20 mg PO HS [facility] Last Admin: 03/15/20 21:02 Dose: 20 mg Documented by: Docusate Sodium (Colace -) 100 mg PO BID [facility] Last Admin: 03/16/20 09:15 Dose: 100 mg Documented by: Gabapentin (Neurontin -) 300 mg PO TID [facility] Last Admin: 03/16/20 13:39 Dose: 300 mg Documented by: HCTZ/Losartan Potassium (Hyzaar -) 1 tab PO DAILY [facility] Last Admin: 03/16/20 09:16 Dose: 1 tab Documented by: Insulin Aspart (Novolog Vial Sliding Scale -) 1 vial SQ [facility]; Protocol Last Admin: 03/16/20 11:28 Dose: 10 units Documented by: Insulin Detemir (Levemir Vial) 25 units SQ [facility] Ondansetron HCl (Zofran Injection) 4 mg IVPUSH Q4H PRN PRN Reason: NAUSEA AND/OR VOMITING Oxycodone HCl (Roxicodone -) 5 mg PO Q6H PRN PRN Reason: PAIN LEVEL 1-5 Oxycodone HCl (Roxicodone -) 10 mg PO Q6H PRN PRN Reason: PAIN LEVEL 6-10 Last Admin: 03/15/20 20:44 Dose: 10 mg Documented by: Rivaroxaban (Xarelto) 10 mg PO DAILY [facility] Last Admin: 03/16/20 09:15 Dose: 10 mg Documented by: Silver Sulfadiazine (Silvadene -) 1 applic TP DAILY [facility] Last Admin: 03/16/20 09:16 Dose: 1 applic Documented by: - Objective Vital Signs: Vital Signs Temperature 98.9 F 03/16/20 09:45 Pulse Rate 110 H 03/16/20 09:45 Respiratory Rate 20 03/16/20 09:45 Blood Pressure 136/94 03/16/20 09:45 O2 Sat by Pulse Oximetry (%) 97 03/16/20 09:00 Constitutional: Yes: No Distress HENT: Yes: Atraumatic Neck: Yes: Supple Cardiovascular: Yes: Regular Rate and Rhythm Respiratory: Yes: CTA Bilaterally Gastrointestinal: Yes: Normal Bowel Sounds Extremities: Yes: Other (llex wound dressing in place) Neurological: Yes: Alert, Oriented Labs: CBC, BMP 03/16/20 08:45 03/16/20 08:45 INR, PTT INR 1.01 (0.83-1.09) 03/06/20 16:35 Problem List - Problems (1) PVD (peripheral vascular disease) Code(s): I73.9 - PERIPHERAL VASCULAR DISEASE, UNSPECIFIED (2) Arterial occlusion Assessment/Plan: s/pangioplasty on po abx now Code(s): I70.90 - UNSPECIFIED ATHEROSCLEROSIS (3) Diabetes Assessment/Plan: on insulin and bgms Code(s): E11.9 - TYPE 2 DIABETES MELLITUS WITHOUT COMPLICATIONS (4) HLD (hyperlipidemia) Assessment/Plan: on meds Code(s): E78.5 - HYPERLIPIDEMIA, UNSPECIFIED (5) HTN (hypertension) Code(s): I10 - ESSENTIAL (PRIMARY) HYPERTENSION (6) Status post femoral-popliteal bypass surgery Code(s): Z95.828 - PRESENCE OF OTHER VASCULAR IMPLANTS AND GRAFTS Assessment/Plan covering for dr renee today
[2020-03-16] MEDS: AMOX TR/POT CLAV 500MG/125MG TABLETS (FP) PO SCH (16:52)
[2020-03-16] MEDS: ATORVASTATIN CA 20 MG TABLET (FP) PO SCH (21:37)
[2020-03-16] MEDS: INSULIN (LEVEMIR) 100 UNITS/ML UNITS SQ SCH (21:38)
[2020-03-17] MEDS: oxyCODONE HCL 5 MG TABLET PO PRN (00:52)
[2020-03-17] MEDS: GABAPENTIN 300 MG CAPSULE PO SCH ×3 (06:29→22:33)
[2020-03-17] MEDS: INSULIN SLIDING SCALE (NOVOLOG) 1 VIAL SQ SCH ×4 (06:30→22:34)
[2020-03-17 08:32] LABS: EOS % 2.7 % (0-4.5); HEMATOCRIT 35.7 % (35.4-49); HEMOGLOBIN 11.5 GM/dL (11.7-16.9); LYMPH % 27.3 % (8-40); MCH 26.4 pg (25.7-33.7); MCHC 32.2 g/dl (32.0-35.9); MEAN PLT VOLUME 7.9 fl (7.5-11.1); MONO % 6.8 % (3.8-10.2); NEUT % 62.2 % (42.8-82.8); PLATELET COUNT 342 K/MM3 (134-434); RBC 4.35 M/mm3 (4.00-5.60); WHITE BLOOD COUNT 12.7 K/mm3 (4.0-10.0)
[2020-03-17 08:36] LABS: ALBUMIN 2.6 g/dl (3.4-5.0); BLOOD UREA NITROGEN 35.8 mg/dL (7-18); CALCIUM 8.9 mg/dL (8.5-10.1); CREATININE 1.7 mg/dL (0.55-1.3); POTASSIUM 3.8 mmol/L (3.5-5.1); TOT PROT 6.4 g/dl (6.4-8.2)
[2020-03-17] MEDS: AMOX TR/POT CLAV 500MG/125MG TABLETS (FP) PO SCH ×2 (09:44→17:40)
[2020-03-17] MEDS: LOSARTAN 50MG/HCTZ 12.5MG 1 TAB (FP) PO SCH (09:44)
[2020-03-17] MEDS: RIVAROXABAN 10 MG TABLET PO SCH (09:44)
[2020-03-17] MEDS ORDERED: PT OWN MED DRAWER 7, Y5N ONE (09:52)
[2020-03-17] MEDS: SILVER SULFADIAZINE 1% TOP CREAM 50 GM JAR TP SCH (09:59)
[2020-03-17] MEDS: ASPIRIN COATED 81 MG TABLET.EC PO SCH (10:00)
[2020-03-17] MEDS: amLODIPine BESYLATE 5 MG TABLET (FP) PO SCH (10:00)
[2020-03-17] MEDS: DOCUSATE SODIUM 100 MG CAPSULE (FP) PO SCH ×2 (10:00→22:33)
--- NOTE | 2020-03-17 10:50 | PN ---
Progress Note, Physician History of Present Illness: stable no new issues wbc marginally down - Current Medication List Current Medications: Active Medications Amlodipine Besylate (Norvasc -) 5 mg PO DAILY [facility] Last Admin: 03/17/20 10:00 Dose: 5 mg Documented by: Amoxicillin/Clavulanate Potassium (Augmentin - 500mg Tablet) 1 tab PO BID@0800,1730 [facility] Last Admin: 03/17/20 09:44 Dose: 1 tab Documented by: Aspirin (Ecotrin -) 81 mg PO DAILY [facility] Last Admin: 03/17/20 10:00 Dose: 81 mg Documented by: Atorvastatin Calcium (Lipitor -) 20 mg PO [facility] Last Admin: 03/16/20 21:37 Dose: 20 mg Documented by: Docusate Sodium (Colace -) 100 mg PO BID [facility] Last Admin: 03/17/20 10:00 Dose: 100 mg Documented by: Gabapentin (Neurontin -) 300 mg PO TID [facility] Last Admin: 03/17/20 06:29 Dose: 300 mg Documented by: HCTZ/Losartan Potassium (Hyzaar -) 1 tab PO DAILY [facility] Last Admin: 03/17/20 09:44 Dose: 1 tab Documented by: Insulin Aspart (Novolog Vial Sliding Scale -) 1 vial SQ [facility]; Protocol Last Admin: 03/17/20 06:30 Dose: 7 units Documented by: Insulin Detemir (Levemir Vial) 25 units SQ [facility] Last Admin: 03/16/20 21:38 Dose: 25 units Documented by: Ondansetron HCl (Zofran Injection) 4 mg IVPUSH Q4H PRN PRN Reason: NAUSEA AND/OR VOMITING Oxycodone HCl (Roxicodone -) 5 mg PO Q6H PRN PRN Reason: PAIN LEVEL 1-5 Oxycodone HCl (Roxicodone -) 10 mg PO Q6H PRN PRN Reason: PAIN LEVEL 6-10 Last Admin: 03/17/20 00:52 Dose: 10 mg Documented by: Rivaroxaban (Xarelto) 10 mg PO DAILY [facility] Last Admin: 03/17/20 09:44 Dose: 10 mg Documented by: Silver Sulfadiazine (Silvadene -) 1 applic TP DAILY [facility] Last Admin: 03/17/20 09:59 Dose: 1 applic Documented by: - Objective Vital Signs: Vital Signs Temperature 98.7 F 03/17/20 06:00 Pulse Rate 86 03/17/20 06:00 Respiratory Rate 18 03/17/20 06:00 Blood Pressure 126/78 03/17/20 06:00 O2 Sat by Pulse Oximetry (%) 97 03/16/20 21:00 Constitutional: Yes: No Distress, Calm Cardiovascular: Yes: S1, S2 Respiratory: Yes: Regular, CTA Bilaterally Gastrointestinal: Yes: Normal Bowel Sounds, Soft Musculoskeletal: Yes: WNL Extremities: Yes: Other Wound/Incision: Yes: Dressing Dry and Intact Neurological: Yes: Alert, Oriented Psychiatric: Yes: Alert, Oriented Labs: CBC, BMP 03/17/20 07:15 03/17/20 07:15 INR, PTT INR 1.01 (0.83-1.09) 03/06/20 16:35 Assessment/Plan Problem List - Problems (1) PAD (peripheral artery disease) Code(s): I73.9 - PERIPHERAL VASCULAR DISEASE, UNSPECIFIED (2) Diabetes Code(s): E11.9 - TYPE 2 DIABETES MELLITUS WITHOUT COMPLICATIONS (3) Diabetic neuropathy Code(s): E11.40 - TYPE 2 DIABETES MELLITUS WITH DIABETIC NEUROPATHY, UNSP (4) HTN (hypertension) Code(s): I10 - ESSENTIAL (PRIMARY) HYPERTENSION (5) HLD (hyperlipidemia) Code(s): E78.5 - HYPERLIPIDEMIA, UNSPECIFIED (6) CAD (coronary artery disease) Code(s): I25.10 - ATHSCL HEART DISEASE OF [place] CORONARY ARTERY W/O ANG PCTRS plan oral abx wound care
--- NOTE | 2020-03-17 20:44 | PN ---
Progress Note, Physician History of Present Illness: Some swelling LLE - Current Medication List Current Medications: Active Medications Amlodipine Besylate (Norvasc -) 5 mg PO DAILY [facility] Last Admin: 03/17/20 10:00 Dose: 5 mg Documented by: Amoxicillin/Clavulanate Potassium (Augmentin - 500mg Tablet) 1 tab PO BID@0800,1730 [facility] Last Admin: 03/17/20 17:40 Dose: 1 tab Documented by: Aspirin (Ecotrin -) 81 mg PO DAILY [facility] Last Admin: 03/17/20 10:00 Dose: 81 mg Documented by: Atorvastatin Calcium (Lipitor -) 20 mg PO [facility] Last Admin: 03/16/20 21:37 Dose: 20 mg Documented by: Docusate Sodium (Colace -) 100 mg PO BID [facility] Last Admin: 03/17/20 10:00 Dose: 100 mg Documented by: Gabapentin (Neurontin -) 300 mg PO TID [facility] Last Admin: 03/17/20 14:07 Dose: 300 mg Documented by: HCTZ/Losartan Potassium (Hyzaar -) 1 tab PO DAILY [facility] Last Admin: 03/17/20 09:44 Dose: 1 tab Documented by: Insulin Aspart (Novolog Vial Sliding Scale -) 1 vial SQ [facility]; Protocol Last Admin: 03/17/20 17:40 Dose: 10 units Documented by: Insulin Detemir (Levemir Vial) 25 units SQ [facility] Last Admin: 03/16/20 21:38 Dose: 25 units Documented by: Ondansetron HCl (Zofran Injection) 4 mg IVPUSH Q4H PRN PRN Reason: NAUSEA AND/OR VOMITING Oxycodone HCl (Roxicodone -) 5 mg PO Q6H PRN PRN Reason: PAIN LEVEL 1-5 Last Admin: 03/17/20 14:06 Dose: 5 mg Documented by: Oxycodone HCl (Roxicodone -) 10 mg PO Q6H PRN PRN Reason: PAIN LEVEL 6-10 Last Admin: 03/17/20 00:52 Dose: 10 mg Documented by: Rivaroxaban (Xarelto) 10 mg PO DAILY [facility] Last Admin: 03/17/20 09:44 Dose: 10 mg Documented by: Silver Sulfadiazine (Silvadene -) 1 applic TP DAILY [facility] Last Admin: 06/27/20 09:59 Dose: 1 applic Documented by: - Objective Vital Signs: Vital Signs Temperature 99.2 F 03/17/20 18:46 Pulse Rate 103 H 03/17/20 18:46 Respiratory Rate 18 03/17/20 18:46 Blood Pressure 126/75 03/17/20 18:46 O2 Sat by Pulse Oximetry (%) 94 L 03/17/20 09:00 Cardiovascular: Yes: WNL, Regular Rate and Rhythm Respiratory: Yes: WNL, Regular, CTA Bilaterally Gastrointestinal: Yes: WNL, Normal Bowel Sounds, Soft Extremities: Yes: Other (LLE w/ dressing) Edema: LLE: Trace, RLE: Trace Labs: CBC, BMP 03/17/20 07:15 03/17/20 07:15 INR, PTT INR 1.01 (0.83-1.09) 03/06/20 16:35 Problem List - Problems (1) PAD (peripheral artery disease) Assessment/Plan: S/P redo fem-pop bypass with PTFE, fem endarterectomy with vein patch angioplasty LLE calf ulcer Cont IV antibxs Cont wound care As per surgery Keep LLE elevated Code(s): I73.9 - PERIPHERAL VASCULAR DISEASE, UNSPECIFIED (2) Diabetes Assessment/Plan: Cont sliding scale w/ coverage Pt has insulin pump Code(s): E11.9 - TYPE 2 DIABETES MELLITUS WITHOUT COMPLICATIONS (3) Diabetic neuropathy Assessment/Plan: Cont gabapentin Code(s): E11.40 - TYPE 2 DIABETES MELLITUS WITH DIABETIC NEUROPATHY, UNSP (4) HTN (hypertension) Assessment/Plan: Bp stable Cont losartan/norvasc Code(s): I10 - ESSENTIAL (PRIMARY) HYPERTENSION (5) HLD (hyperlipidemia) Assessment/Plan: Cont lipitor Code(s): E78.5 - HYPERLIPIDEMIA, UNSPECIFIED (6) CAD (coronary artery disease) Code(s): I25.10 - ATHSCL HEART DISEASE OF [place] CORONARY ARTERY W/O ANG PCTRS
[2020-03-17] MEDS: ATORVASTATIN CA 20 MG TABLET (FP) PO SCH (22:33)
[2020-03-17] MEDS: INSULIN (LEVEMIR) 100 UNITS/ML UNITS SQ SCH (22:34)
[2020-03-18] MEDS: oxyCODONE HCL 5 MG TABLET PO PRN (00:18)
[2020-03-18] MEDS: INSULIN SLIDING SCALE (NOVOLOG) 1 VIAL SQ SCH ×4 (06:11→21:13)
[2020-03-18] MEDS: GABAPENTIN 300 MG CAPSULE PO SCH ×3 (06:11→21:14)
[2020-03-18] MEDS ORDERED: PT OWN MED DRAWER 7, Y5N ONE (09:21)
[2020-03-18] MEDS: DOCUSATE SODIUM 100 MG CAPSULE (FP) PO SCH ×2 (09:22→21:14)
[2020-03-18] MEDS: AMOX TR/POT CLAV 500MG/125MG TABLETS (FP) PO SCH ×2 (09:22→17:23)
[2020-03-18] MEDS: ASPIRIN COATED 81 MG TABLET.EC PO SCH (09:22)
[2020-03-18] MEDS: amLODIPine BESYLATE 5 MG TABLET (FP) PO SCH (09:22)
[2020-03-18] MEDS: LOSARTAN 50MG/HCTZ 12.5MG 1 TAB (FP) PO SCH (09:23)
[2020-03-18] MEDS: RIVAROXABAN 10 MG TABLET PO SCH (09:23)
[2020-03-18] MEDS: SILVER SULFADIAZINE 1% TOP CREAM 50 GM JAR TP SCH (10:55)
[2020-03-18] MEDS ORDERED: INSULIN (NOVOLOG) ASPART 100 UNITS/ML 10ML VIAL ONE ×2 (11:40→20:55)
--- NOTE | 2020-03-18 13:14 | PN ---
Progress Note, Physician History of Present Illness: stable leg a bit swollen - Current Medication List Current Medications: Active Medications Amlodipine Besylate (Norvasc -) 5 mg PO DAILY [facility] Last Admin: 03/18/20 09:22 Dose: 5 mg Documented by: Amoxicillin/Clavulanate Potassium (Augmentin - 500mg Tablet) 1 tab PO BID@0800,1730 [facility] Last Admin: 03/18/20 09:22 Dose: 1 tab Documented by: Aspirin (Ecotrin -) 81 mg PO DAILY [facility] Last Admin: 03/18/20 09:22 Dose: 81 mg Documented by: Atorvastatin Calcium (Lipitor -) 20 mg PO HS [facility] Last Admin: 03/17/20 22:33 Dose: 20 mg Documented by: Docusate Sodium (Colace -) 100 mg PO BID [facility] Last Admin: 03/18/20 09:22 Dose: 100 mg Documented by: Gabapentin (Neurontin -) 300 mg PO TID [facility] Last Admin: 03/18/20 06:11 Dose: 300 mg Documented by: HCTZ/Losartan Potassium (Hyzaar -) 1 tab PO DAILY [facility] Last Admin: 03/18/20 09:23 Dose: 1 tab Documented by: Insulin Aspart (Novolog Vial Sliding Scale -) 1 vial SQ [facility]; Protocol Last Admin: 03/18/20 11:41 Dose: 10 units Documented by: Insulin Detemir (Levemir Vial) 25 units SQ [facility] Last Admin: 03/17/20 22:34 Dose: 25 units Documented by: Ondansetron HCl (Zofran Injection) 4 mg IVPUSH Q4H PRN PRN Reason: NAUSEA AND/OR VOMITING Rivaroxaban (Xarelto) 10 mg PO DAILY [facility] Last Admin: 03/18/20 09:23 Dose: 10 mg Documented by: Silver Sulfadiazine (Silvadene -) 1 applic TP DAILY [facility] Last Admin: 03/17/20 09:59 Dose: 1 applic Documented by: - Objective Vital Signs: Vital Signs Temperature 98.4 F 03/18/20 10:00 Pulse Rate 105 H 03/18/20 10:00 Respiratory Rate 18 03/18/20 10:00 Blood Pressure 127/70 03/18/20 10:00 O2 Sat by Pulse Oximetry (%) 96 03/18/20 09:00 Constitutional: Yes: No Distress, Calm Cardiovascular: Yes: S1, S2 Respiratory: Yes: Regular, CTA Bilaterally Gastrointestinal: Yes: Normal Bowel Sounds, Soft Musculoskeletal: Yes: WNL Extremities: Yes: Other Neurological: Yes: Alert, Oriented Psychiatric: Yes: Alert, Oriented Labs: CBC, BMP 03/17/20 07:15 03/17/20 07:15 INR, PTT INR 1.01 (0.83-1.09) 03/06/20 16:35 Assessment/Plan Problem List - Problems (1) PAD (peripheral artery disease) Code(s): I73.9 - PERIPHERAL VASCULAR DISEASE, UNSPECIFIED (2) Diabetes Code(s): E11.9 - TYPE 2 DIABETES MELLITUS WITHOUT COMPLICATIONS (3) Diabetic neuropathy Code(s): E11.40 - TYPE 2 DIABETES MELLITUS WITH DIABETIC NEUROPATHY, UNSP (4) HTN (hypertension) Code(s): I10 - ESSENTIAL (PRIMARY) HYPERTENSION (5) HLD (hyperlipidemia) Code(s): E78.5 - HYPERLIPIDEMIA, UNSPECIFIED (6) CAD (coronary artery disease) Code(s): I25.10 - ATHSCL HEART DISEASE OF [place] CORONARY ARTERY W/O ANG PCTRS plan oral abx wound care
[2020-03-18] MEDS: ATORVASTATIN CA 20 MG TABLET (FP) PO SCH (21:14)
[2020-03-18] MEDS: INSULIN (LEVEMIR) 100 UNITS/ML UNITS SQ SCH (21:14)
--- NOTE | 2020-03-18 21:41 | PN ---
Progress Note, Physician History of Present Illness: Pt w/ decreased swelling of LLE - Current Medication List Current Medications: Active Medications Amlodipine Besylate (Norvasc -) 5 mg PO DAILY [facility] Last Admin: 03/18/20 09:22 Dose: 5 mg Documented by: Amoxicillin/Clavulanate Potassium (Augmentin - 500mg Tablet) 1 tab PO BID@0800,1730 [facility] Last Admin: 03/18/20 17:23 Dose: 1 tab Documented by: Aspirin (Ecotrin -) 81 mg PO DAILY [facility] Last Admin: 03/18/20 09:22 Dose: 81 mg Documented by: Atorvastatin Calcium (Lipitor -) 20 mg PO HS [facility] Last Admin: 03/18/20 21:14 Dose: 20 mg Documented by: Docusate Sodium (Colace -) 100 mg PO BID [facility] Last Admin: 03/18/20 21:14 Dose: 100 mg Documented by: Gabapentin (Neurontin -) 300 mg PO TID [facility] Last Admin: 03/18/20 21:14 Dose: 300 mg Documented by: HCTZ/Losartan Potassium (Hyzaar -) 1 tab PO DAILY [facility] Last Admin: 03/18/20 09:23 Dose: 1 tab Documented by: Insulin Aspart (Novolog Vial Sliding Scale -) 1 vial SQ [facility]; Protocol Last Admin: 03/18/20 21:13 Dose: 10 units Documented by: Insulin Detemir (Levemir Vial) 25 units SQ [facility] Last Admin: 03/18/20 21:14 Dose: 25 units Documented by: Ondansetron HCl (Zofran Injection) 4 mg IVPUSH Q4H PRN PRN Reason: NAUSEA AND/OR VOMITING Rivaroxaban (Xarelto) 10 mg PO DAILY [facility] Last Admin: 03/18/20 09:23 Dose: 10 mg Documented by: Silver Sulfadiazine (Silvadene -) 1 applic TP DAILY [facility] Last Admin: 03/18/20 10:55 Dose: 1 applic Documented by: - Objective Vital Signs: Vital Signs Temperature 98.3 F 03/18/20 20:44 Pulse Rate 100 H 03/18/20 20:44 Respiratory Rate 18 03/18/20 20:44 Blood Pressure 114/68 03/18/20 20:44 O2 Sat by Pulse Oximetry (%) 96 03/18/20 09:00 Cardiovascular: Yes: WNL, Regular Rate and Rhythm Respiratory: Yes: WNL, Regular, CTA Bilaterally Gastrointestinal: Yes: WNL, Normal Bowel Sounds, Soft Extremities: Yes: Other ((+) Ulcer LLE w/) Edema: LLE: Trace, RLE: Trace Labs: CBC, BMP 03/17/20 07:15 03/17/20 07:15 INR, PTT INR 1.01 (0.83-1.09) 03/06/20 16:35 Problem List - Problems (1) PAD (peripheral artery disease) Assessment/Plan: S/P redo fem-pop bypass with PTFE, fem endarterectomy with vein patch angioplasty Pt now on PO antibxs Cont wound care Pt told to keep LLE elevated DC planning for am Code(s): I73.9 - PERIPHERAL VASCULAR DISEASE, UNSPECIFIED (2) Diabetes Assessment/Plan: Cont sliding scale w/ coverage Pt has insulin pump Code(s): E11.9 - TYPE 2 DIABETES MELLITUS WITHOUT COMPLICATIONS (3) Diabetic neuropathy Assessment/Plan: Cont gabapentin Code(s): E11.40 - TYPE 2 DIABETES MELLITUS WITH DIABETIC NEUROPATHY, UNSP (4) HTN (hypertension) Assessment/Plan: Bp stable Cont losartan/norvasc Code(s): I10 - ESSENTIAL (PRIMARY) HYPERTENSION (5) HLD (hyperlipidemia) Assessment/Plan: Cont lipitor Code(s): E78.5 - HYPERLIPIDEMIA, UNSPECIFIED (6) CAD (coronary artery disease) Assessment/Plan: Cont Restart plavix/asa Code(s): I25.10 - ATHSCL HEART DISEASE OF [place] CORONARY ARTERY W/O ANG PCTRS
--- NOTE | 2020-03-18 23:53 | CONSULT ---
Consult Consult Specialty:: endocrine Referred by:: Montserrat Hall MD Reason for Consultation:: dmt2 - History of Present Illness Chief Complaint: high sugars History of Present Illness: 49M w/hx DMT2, w/peripheral neuropathy, HTN, admitted with weakness,claudication symptoms,pvd,sp bypass surgery,has had high blood sugars,poor appetite,chronic diabetic neurpathic pain,difficulty controlling blood sugars,taking insulin yet not improved.had been on insulin pump external infusion device. - Past Medical History Cardio/Vascular: Yes: HTN, Hyperlipdemia, Other (PAD) Gastrointestinal: Yes: Other (Obesity) Renal/: Yes: Renal Inusuff. 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 History of Recent Travel: Yes ([place] 2 weeks ago) Home Medications - Allergies Allergies/Adverse Reactions: Allergies Allergy/AdvReac Type Severity Reaction Status Date / Time No Known Allergies Allergy Verified 03/06/20 16:26 - Home Medications Home Medications: Ambulatory Orders Insulin Pump Syringe, 1.8 ml [Thinset] 1 each [facility] DAILY 10/21/16 Aspirin [ASA -] 81 mg PO DAILY #30 tab.chew 03/04/18 Atorvastatin Ca [Lipitor] 20 mg PO HS #30 tablet 03/04/18 Clopidogrel Bisulfate [Plavix -] 75 mg PO DAILY #30 tablet 03/04/18 Gabapentin [Neurontin -] 300 mg PO TID #30 capsule 03/04/18 Amlodipine Besylate 5 mg PO DAILY 04/07/18 Acetaminophen [Tylenol .Regular Strength -] 650 mg PO Q6H PRN tablet 04/12/18 Docusate Sodium [Colace -] 100 mg PO BID #14 capsule 12/07/18 Losartan 50Mg/Hctz 12.5MG [Hyzaar -] 1 tab PO DAILY tablet 12/07/18 Review of Systems - Review of Systems Constitutional: reports: Lethargy, Unintentional Wgt. Loss Eyes: reports: Blurred Vision HENT: reports: No Symptoms Neck: reports: No Symptoms Cardiovascular: reports: No Symptoms Respiratory: reports: Exercise Intolerance, SOB, SOB on Exertion Gastrointestinal: reports: Bloating, Nausea Genitourinary: reports: No Symptoms Breasts: reports: No Symptoms Reported Musculoskeletal: reports: Muscle Pain, Muscle Cramps, Muscle Weakness Integumentary: reports: Pallor Neurological: reports: Numbness, Parasthesia, Pre-Existing Deficit, Unsteady Gait Physical Exam Vital Signs: Vital Signs Temperature 98.3 F 03/18/20 20:44 Pulse Rate 100 H 03/18/20 20:44 Respiratory Rate 18 03/18/20 21:00 Blood Pressure 114/68 03/18/20 20:44 O2 Sat by Pulse Oximetry (%) 96 03/18/20 21:00 Labs: CBC, BMP 03/17/20 07:15 03/17/20 07:15 Problem List - Problems (1) Leg pain, left Code(s): M79.605 - PAIN IN LEFT LEG (2) PVD (peripheral vascular disease) Code(s): I73.9 - PERIPHERAL VASCULAR DISEASE, UNSPECIFIED (3) Post op infection Code(s): T81.4XXA - Qualifiers: Encounter type: initial encounter Postoperative infection type: superficial incisional surgical site Qualified Code(s): T81.41XA - Infection following a procedure, superficial incisional surgical site, initial encounter (4) Azotemia Code(s): R79.89 - OTHER SPECIFIED ABNORMAL FINDINGS OF BLOOD CHEMISTRY (5) Back pain Code(s): M54.9 - DORSALGIA, UNSPECIFIED Assessment/Plan Current Active Problems dmt1 uncontrolled hyperglycemia Leg pain, left (Acute) PVD (peripheral vascular disease) (Acute) Post op infection (Acute) Laboratory Results - last 24 hr 03/18/20 03/18/20 03/18/20 06:10 11:36 16:35 POC Glucometer 333 363 327 03/18/20 20:49 POC Glucometer 375 Laboratory Tests 03/14/20 03/17/20 03/17/20 05:43 07:15 11:29 Sodium 133 L Potassium 3.8 Chloride 95 L Carbon Dioxide 30 Anion Gap 7 L Creatinine 1.7 H Est GFR (CKD-EPI)AfAm 52.94 POC Glucometer 378 Hemoglobin A1c % 12.2 H plan: bgm qid novolog scale dose titration levemir 25 units bid outpatient cgms with insulin pump device
[2020-03-19] MEDS ORDERED: oxyCODONE HCL 5 MG TABLET PO ONE ×2 (02:15→11:59)
[2020-03-19] MEDS: INSULIN SLIDING SCALE (NOVOLOG) 1 VIAL SQ SCH ×4 (06:13→22:06)
[2020-03-19] MEDS: GABAPENTIN 300 MG CAPSULE PO SCH ×3 (06:13→22:06)
[2020-03-19] MEDS: AMOX TR/POT CLAV 500MG/125MG TABLETS (FP) PO SCH ×2 (08:10→16:42)
[2020-03-19] MEDS ORDERED: PT OWN MED DRAWER 7, Y5N ONE (09:28)
[2020-03-19] MEDS: DOCUSATE SODIUM 100 MG CAPSULE (FP) PO SCH ×2 (09:36→22:06)
[2020-03-19] MEDS: INSULIN (LEVEMIR) 100 UNITS/ML UNITS SQ SCH ×2 (09:36→22:06)
[2020-03-19] MEDS: SILVER SULFADIAZINE 1% TOP CREAM 50 GM JAR TP SCH (09:36)
[2020-03-19] MEDS: LOSARTAN 50MG/HCTZ 12.5MG 1 TAB (FP) PO SCH (09:36)
[2020-03-19] MEDS: RIVAROXABAN 10 MG TABLET PO SCH (09:36)
[2020-03-19] MEDS: CLOPIDOGREL BISULFATE 75 MG TABLET (FP) PO SCH (09:36)
[2020-03-19] MEDS: amLODIPine BESYLATE 5 MG TABLET (FP) PO SCH (09:36)
[2020-03-19] MEDS: ASPIRIN COATED 81 MG TABLET.EC PO SCH (09:36)
[2020-03-19] MEDS ORDERED: oxyCODONE HCL 5 MG TABLET PO PRN (10:14)
--- NOTE | 2020-03-19 11:02 | PN ---
Progress Note, Physician History of Present Illness: stable no new issues - Current Medication List Current Medications: Active Medications Amlodipine Besylate (Norvasc -) 5 mg PO DAILY [facility] Last Admin: 03/19/20 09:36 Dose: 5 mg Documented by: Amoxicillin/Clavulanate Potassium (Augmentin - 500mg Tablet) 1 tab PO BID@0800,1730 [facility] Last Admin: 03/19/20 08:10 Dose: 1 tab Documented by: Aspirin (Ecotrin -) 81 mg PO DAILY [facility] Last Admin: 03/19/20 09:36 Dose: 81 mg Documented by: Atorvastatin Calcium (Lipitor -) 20 mg PO HS [facility] Last Admin: 03/18/20 21:14 Dose: 20 mg Documented by: Clopidogrel Bisulfate (Plavix -) 75 mg PO DAILY [facility] Last Admin: 03/19/20 09:36 Dose: 75 mg Documented by: Docusate Sodium (Colace -) 100 mg PO BID [facility] Last Admin: 03/19/20 09:36 Dose: 100 mg Documented by: Gabapentin (Neurontin -) 300 mg PO TID [facility] Last Admin: 03/19/20 06:13 Dose: 300 mg Documented by: HCTZ/Losartan Potassium (Hyzaar -) 1 tab PO DAILY [facility] Last Admin: 03/19/20 09:36 Dose: 1 tab Documented by: Insulin Aspart (Novolog Vial Sliding Scale -) 1 vial SQ [facility]CHS [facility]; Protocol Last Admin: 03/19/20 06:13 Dose: 9 units Documented by: Insulin Detemir (Levemir Vial) 25 units SQ BID [facility] Last Admin: 03/19/20 09:36 Dose: 25 units Documented by: Ondansetron HCl (Zofran Injection) 4 mg IVPUSH Q4H PRN PRN Reason: NAUSEA AND/OR VOMITING Oxycodone HCl (Roxicodone -) 5 mg PO Q8H PRN PRN Reason: PAIN LEVEL 6-10 Last Admin: 03/19/20 10:28 Dose: 5 mg Documented by: Rivaroxaban (Xarelto) 10 mg PO DAILY [facility] Last Admin: 03/19/20 09:36 Dose: 10 mg Documented by: Silver Sulfadiazine (Silvadene -) 1 applic TP DAILY [facility] Last Admin: 03/19/20 09:36 Dose: 1 applic Documented by: - Objective Vital Signs: Vital Signs Temperature 98.9 F 03/19/20 10:00 Pulse Rate 97 H 03/19/20 10:00 Respiratory Rate 20 03/19/20 10:00 Blood Pressure 131/74 03/19/20 10:00 O2 Sat by Pulse Oximetry (%) 96 03/18/20 21:00 Constitutional: Yes: No Distress, Calm Cardiovascular: Yes: S1, S2 Respiratory: Yes: Regular, CTA Bilaterally Gastrointestinal: Yes: Normal Bowel Sounds, Soft Musculoskeletal: Yes: Other Neurological: Yes: Alert, Oriented Psychiatric: Yes: Alert, Oriented Labs: CBC, BMP 03/17/20 07:15 03/17/20 07:15 INR, PTT INR 1.01 (0.83-1.09) 03/06/20 16:35 Assessment/Plan Problem List - Problems (1) PAD (peripheral artery disease) Code(s): I73.9 - PERIPHERAL VASCULAR DISEASE, UNSPECIFIED (2) Diabetes Code(s): E11.9 - TYPE 2 DIABETES MELLITUS WITHOUT COMPLICATIONS (3) Diabetic neuropathy Code(s): E11.40 - TYPE 2 DIABETES MELLITUS WITH DIABETIC NEUROPATHY, UNSP (4) HTN (hypertension) Code(s): I10 - ESSENTIAL (PRIMARY) HYPERTENSION (5) HLD (hyperlipidemia) Code(s): E78.5 - HYPERLIPIDEMIA, UNSPECIFIED (6) CAD (coronary artery disease) Code(s): I25.10 - ATHSCL HEART DISEASE OF [place] CORONARY ARTERY W/O ANG PCTRS plan oral abx wound care
--- NOTE | 2020-03-19 11:16 | PN ---
Progress Note (short form) - Note Progress Note: s: no cp sob palps dizzy Current Medications Generic Name Dose Route Start Last Admin Trade Name Freq PRN Reason Stop Dose Admin Amlodipine Besylate 5 mg 03/16/20 10:00 03/19/20 09:36 Norvasc - PO 5 mg DAILY [place] Administration Amoxicillin/Clavulanate Potassium 1 tab 03/16/20 17:30 03/19/20 08:10 Augmentin - 500mg Tablet PO 1 tab BID@0800,1730 [place] Administration Aspirin 81 mg 03/16/20 10:00 03/19/20 09:36 Ecotrin - PO 81 mg DAILY [place] Administration Atorvastatin Calcium 20 mg 03/15/20 22:00 03/18/20 21:14 Lipitor - PO 20 mg HS [facility] Administration Clopidogrel Bisulfate 75 mg 03/19/20 10:00 03/19/20 09:36 Plavix - PO 75 mg DAILY [place] Administration Docusate Sodium 100 mg 03/15/20 22:00 03/19/20 09:36 Colace - PO 100 mg BID [place] Administration Gabapentin 300 mg 03/15/20 22:00 03/19/20 06:13 Neurontin - PO 300 mg TID [place] Administration HCTZ/Losartan Potassium 1 tab 03/16/20 10:00 03/19/20 09:36 Hyzaar - PO 1 tab DAILY [place] Administration Insulin Aspart 1 vial 03/19/20 07:00 03/19/20 06:13 Novolog Vial Sliding Scale - SQ 9 units ACHS [facility] Administration Protocol Insulin Detemir 25 units 03/19/20 10:00 03/19/20 09:36 Levemir Vial SQ 25 units BID [facility] Administration Ondansetron HCl 4 mg 03/15/20 20:49 Zofran Injection IVPUSH Q4H PRN NAUSEA AND/OR VOMITING Oxycodone HCl 5 mg 03/19/20 10:14 03/19/20 10:28 Roxicodone - PO 5 mg Q8H PRN Administration PAIN LEVEL 6-10 Rivaroxaban 10 mg 03/16/20 10:00 03/19/20 09:36 Xarelto PO 10 mg DAILY [place] Administration Silver Sulfadiazine 1 applic 03/16/20 10:00 03/19/20 09:36 Silvadene - TP 1 applic DAILY [place] Administration Vital Signs Period Temp Pulse Resp BP Sys/Ken Pulse Ox Last 24 Hr 98.3 F-99.1 F 95-101 18-20 113-131/68-76 96 Constitutional: Yes: No Distress, Calm Eyes: Yes: Conjunctiva Clear Neck: Yes: Supple, Trachea Midline Respiratory: Yes: Regular, CTA Bilaterally Gastrointestinal: Yes: Normal Bowel Sounds, Soft Cardiovascular: Yes: Regular Rate and Rhythm JVD: No Heart Sounds: Yes: S1, S2 Edema: No Neurological: Yes: Alert, Oriented Psychiatric: No: Agitated CBC, BMP 03/17/20 07:15 03/17/20 07:15 Assessment/Plan EKG sinus, IRBBB, no ischemic changes CXR: no acute process echo 11/2018: nl lv/rv, mild mr, mod ms, lvh mibi 11/2018: no scar/ischemia preop evaluation, PAD, leg pain - s/p s/p redo fem-pop bypass with PTFE, fem endarterectomy with vein patch angioplasty - surgery recs - cont xarelto, aspirin, statin per vascular HTN - cont home meds HLD - cont statin DM - manage per primary
[2020-03-19] MEDS ORDERED: SILVER NITRATE 75% APPLIC STCK 1 PKT EACH TP ONE (11:30)
--- NOTE | 2020-03-19 13:02 | PN ---
Progress Note (short form) - Note Progress Note: Vascular Surgery: OOB and ambulating. Some drainage from his the groin wd. Dressing changed daily(yesterday) Vital Signs Period Temp Pulse Resp BP Sys/Ken Pulse Ox Last 24 Hr 98.3 F-99.1 F 95-101 18-20 113-131/68-76 96-98 GEN: A&0x3, NAD LLE: dressing c/d/i to Left calf. foot warm. Inc to groin with pinpoint opening(where staple has dehisced)and with some serous drianage on the dressing today. Otherwise C/d/i no erythema. Left lower ext ulcer sharpley debrided today at bedside. Pt tolerated the procedure well. No purulent drainage noted A/P: 49 yo male s/p Redo fem-pop bypass with PTFe. Femoral endarterectomy with vein patch angioplasty. s/p bedside lower ext debridement of ulcer Diet as tolerated, OOB and ambulate/PT Oral antibiotcs Santyl to left leg aspirin/xarelto D/w Dr. Sorensen
[2020-03-19] MEDS: COLLAGENASE CLOSTRIDIUM HIST. 30 GRAMS TUBE TP SCH (13:41)
--- NOTE | 2020-03-19 21:32 | PN ---
Progress Note, Physician History of Present Illness: No new complaints - Current Medication List Current Medications: Active Medications Amlodipine Besylate (Norvasc -) 5 mg PO DAILY [facility] Last Admin: 03/19/20 09:36 Dose: 5 mg Documented by: Amoxicillin/Clavulanate Potassium (Augmentin - 500mg Tablet) 1 tab PO BID@0800,1730 [facility] Last Admin: 03/19/20 16:42 Dose: 1 tab Documented by: Aspirin (Ecotrin -) 81 mg PO DAILY [facility] Last Admin: 03/19/20 09:36 Dose: 81 mg Documented by: Atorvastatin Calcium (Lipitor -) 20 mg PO HS [facility] Last Admin: 03/18/20 21:14 Dose: 20 mg Documented by: Clopidogrel Bisulfate (Plavix -) 75 mg PO DAILY [facility] Last Admin: 03/19/20 09:36 Dose: 75 mg Documented by: Collagenase (Santyl -) 1 applic TP DAILY [facility]; Protocol Last Admin: 03/19/20 13:41 Dose: 1 applic Documented by: Docusate Sodium (Colace -) 100 mg PO BID [facility] Last Admin: 03/19/20 09:36 Dose: 100 mg Documented by: Gabapentin (Neurontin -) 300 mg PO TID [facility] Last Admin: 03/19/20 13:41 Dose: 300 mg Documented by: HCTZ/Losartan Potassium (Hyzaar -) 1 tab PO DAILY [facility] Last Admin: 03/19/20 09:36 Dose: 1 tab Documented by: Insulin Aspart (Novolog Vial Sliding Scale -) 1 vial SQ ACHS [facility]; Protocol Last Admin: 03/19/20 16:42 Dose: 8 units Documented by: Insulin Detemir (Levemir Vial) 25 units SQ BID [facility] Last Admin: 03/19/20 09:36 Dose: 25 units Documented by: Ondansetron HCl (Zofran Injection) 4 mg IVPUSH Q4H PRN PRN Reason: NAUSEA AND/OR VOMITING Oxycodone HCl (Roxicodone -) 5 mg PO Q8H PRN PRN Reason: PAIN LEVEL 6-10 Last Admin: 03/19/20 10:28 Dose: 5 mg Documented by: Rivaroxaban (Xarelto) 10 mg PO DAILY [facility] Last Admin: 03/19/20 09:36 Dose: 10 mg Documented by: - Objective Vital Signs: Vital Signs Temperature 98.0 F 03/19/20 19:20 Pulse Rate 103 H 03/19/20 19:20 Respiratory Rate 20 03/19/20 14:09 Blood Pressure 123/85 03/19/20 19:20 O2 Sat by Pulse Oximetry (%) 98 03/19/20 09:00 Cardiovascular: Yes: WNL, Regular Rate and Rhythm Respiratory: Yes: WNL, Regular, CTA Bilaterally Gastrointestinal: Yes: WNL, Normal Bowel Sounds, Soft Labs: CBC, BMP 03/17/20 07:15 03/17/20 07:15 INR, PTT INR 1.01 (0.83-1.09) 03/06/20 16:35 Problem List - Problems (1) PAD (peripheral artery disease) Assessment/Plan: s/p redo LT fem-pop bypass LLE calf ulcer Cont augmentin Cont wound care DC planning for am Code(s): I73.9 - PERIPHERAL VASCULAR DISEASE, UNSPECIFIED (2) Diabetes Assessment/Plan: Cont sliding scale w/ coverage Pt has insulin pump Code(s): E11.9 - TYPE 2 DIABETES MELLITUS WITHOUT COMPLICATIONS (3) Diabetic neuropathy Assessment/Plan: Cont gabapentin Code(s): E11.40 - TYPE 2 DIABETES MELLITUS WITH DIABETIC NEUROPATHY, UNSP (4) HTN (hypertension) Assessment/Plan: Bp stable Cont losartan/norvasc Code(s): I10 - ESSENTIAL (PRIMARY) HYPERTENSION (5) HLD (hyperlipidemia) Assessment/Plan: Cont lipitor Code(s): E78.5 - HYPERLIPIDEMIA, UNSPECIFIED (6) CAD (coronary artery disease) Assessment/Plan: Cont Restart plavix/asa Code(s): I25.10 - ATHSCL HEART DISEASE OF [place] CORONARY ARTERY W/O ANG PCTRS
[2020-03-19] MEDS ORDERED: INSULIN (NOVOLOG) ASPART 100 UNITS/ML 10ML VIAL ONE (22:04)
[2020-03-19] MEDS: ATORVASTATIN CA 20 MG TABLET (FP) PO SCH (22:06)
[2020-03-20] MEDS: INSULIN SLIDING SCALE (NOVOLOG) 1 VIAL SQ SCH ×2 (06:17→11:05)
[2020-03-20] MEDS: GABAPENTIN 300 MG CAPSULE PO SCH ×2 (06:17→14:01)
[2020-03-20] MEDS: AMOX TR/POT CLAV 500MG/125MG TABLETS (FP) PO SCH (08:46)
[2020-03-20] MEDS ORDERED: PT OWN MED DRAWER 7, Y5N ONE (09:53)
[2020-03-20] MEDS: INSULIN (LEVEMIR) 100 UNITS/ML UNITS SQ SCH (09:57)
[2020-03-20] MEDS: RIVAROXABAN 10 MG TABLET PO SCH (09:57)
[2020-03-20] MEDS: LOSARTAN 50MG/HCTZ 12.5MG 1 TAB (FP) PO SCH (09:57)
[2020-03-20] MEDS: DOCUSATE SODIUM 100 MG CAPSULE (FP) PO SCH (09:57)
[2020-03-20] MEDS: amLODIPine BESYLATE 5 MG TABLET (FP) PO SCH (09:57)
[2020-03-20] MEDS: ASPIRIN COATED 81 MG TABLET.EC PO SCH (09:57)
[2020-03-20] MEDS: CLOPIDOGREL BISULFATE 75 MG TABLET (FP) PO SCH (09:57)
[2020-03-20] MEDS: COLLAGENASE CLOSTRIDIUM HIST. 30 GRAMS TUBE TP SCH (09:58)
[2020-03-20] MEDS ORDERED: INSULIN (NOVOLOG) ASPART 100 UNITS/ML 10ML VIAL ONE (11:08)
[2020-03-20 11:13] VITALS: TEMP 99
[2020-03-20 11:14] VITALS: BP 115/44; PULSE 113
--- NOTE | 2020-03-20 13:33 | PN ---
Progress Note, Physician History of Present Illness: stable no new issues - Current Medication List Current Medications: Active Medications Amlodipine Besylate (Norvasc -) 5 mg PO DAILY [facility] Last Admin: 03/20/20 09:57 Dose: Not Given Documented by: Amoxicillin/Clavulanate Potassium (Augmentin - 500mg Tablet) 1 tab PO BID@0800,1730 [facility] Last Admin: 03/20/20 08:46 Dose: 1 tab Documented by: Aspirin (Ecotrin -) 81 mg PO DAILY [facility] Last Admin: 03/20/20 09:57 Dose: 81 mg Documented by: Atorvastatin Calcium (Lipitor -) 20 mg PO HS [facility] Last Admin: 03/19/20 22:06 Dose: 20 mg Documented by: Clopidogrel Bisulfate (Plavix -) 75 mg PO DAILY [facility] Last Admin: 03/20/20 09:57 Dose: 75 mg Documented by: Collagenase (Santyl -) 1 applic TP DAILY [facility]; Protocol Last Admin: 03/20/20 09:58 Dose: 1 applic Documented by: Docusate Sodium (Colace -) 100 mg PO BID [facility] Last Admin: 03/20/20 09:57 Dose: 100 mg Documented by: Gabapentin (Neurontin -) 300 mg PO TID [facility] Last Admin: 03/20/20 06:17 Dose: 300 mg Documented by: HCTZ/Losartan Potassium (Hyzaar -) 1 tab PO DAILY [facility] Last Admin: 03/20/20 09:57 Dose: Not Given Documented by: Insulin Aspart (Novolog Vial Sliding Scale -) 1 vial SQ [facility]; Protocol Last Admin: 03/20/20 11:05 Dose: 9 units Documented by: Insulin Detemir (Levemir Vial) 25 units SQ BID [facility] Last Admin: 03/20/20 09:57 Dose: 25 units Documented by: Ondansetron HCl (Zofran Injection) 4 mg IVPUSH Q4H PRN PRN Reason: NAUSEA AND/OR VOMITING Oxycodone HCl (Roxicodone -) 5 mg PO Q8H PRN PRN Reason: PAIN LEVEL 6-10 Last Admin: 03/19/20 10:28 Dose: 5 mg Documented by: Rivaroxaban (Xarelto) 10 mg PO DAILY [facility] Last Admin: 03/20/20 09:57 Dose: 10 mg Documented by: - Objective Vital Signs: Vital Signs Temperature 99.0 F 03/20/20 09:00 Pulse Rate 113 H 03/20/20 09:30 Respiratory Rate 20 03/20/20 09:30 Blood Pressure 115/44 L 03/20/20 09:30 O2 Sat by Pulse Oximetry (%) 96 03/20/20 09:00 Constitutional: Yes: No Distress, Calm Cardiovascular: Yes: S1, S2 Respiratory: Yes: Regular, CTA Bilaterally Gastrointestinal: Yes: Normal Bowel Sounds, Soft Musculoskeletal: Yes: WNL Extremities: Yes: Other Wound/Incision: Yes: Dressing Dry and Intact, Other (wound debrided) Neurological: Yes: Alert, Oriented Psychiatric: Yes: Alert, Oriented Labs: CBC, BMP 03/17/20 07:15 03/17/20 07:15 INR, PTT INR 1.01 (0.83-1.09) 03/06/20 16:35 Assessment/Plan Problem List - Problems (1) PAD (peripheral artery disease) Code(s): I73.9 - PERIPHERAL VASCULAR DISEASE, UNSPECIFIED (2) Diabetes Code(s): E11.9 - TYPE 2 DIABETES MELLITUS WITHOUT COMPLICATIONS (3) Diabetic neuropathy Code(s): E11.40 - TYPE 2 DIABETES MELLITUS WITH DIABETIC NEUROPATHY, UNSP (4) HTN (hypertension) Code(s): I10 - ESSENTIAL (PRIMARY) HYPERTENSION (5) HLD (hyperlipidemia) Code(s): E78.5 - HYPERLIPIDEMIA, UNSPECIFIED (6) CAD (coronary artery disease) Code(s): I25.10 - ATHSCL HEART DISEASE OF [place] CORONARY ARTERY W/O ANG PCTRS plan can stop abx wound care
--- NOTE | 2020-03-20 15:10 | PN ---
Progress Note (short form) - Note Progress Note: cc: leg pain Progress Note: s: no cp sob palps dizzy Vital Signs Period Temp Pulse Resp BP Sys/Ken Pulse Ox Last 24 Hr 98.0 F-99.1 F 91-113 20-20 113-153/44-85 96-98 Constitutional: Yes: No Distress, Calm Eyes: Yes: Conjunctiva Clear Neck: Yes: Supple, Trachea Midline Respiratory: Yes: Regular, CTA Bilaterally Gastrointestinal: Yes: Normal Bowel Sounds, Soft Cardiovascular: Yes: Regular Rate and Rhythm JVD: No Heart Sounds: Yes: S1, S2 Edema: No Neurological: Yes: Alert, Oriented Psychiatric: No: Agitated Assessment/Plan EKG sinus, IRBBB, no ischemic changes CXR: no acute process echo 11/2018: nl lv/rv, mild mr, mod ms, lvh mibi 11/2018: no scar/ischemia preop evaluation, PAD, leg pain - s/p s/p redo fem-pop bypass with PTFE, fem endarterectomy with vein patch angioplasty - surgery recs - cont xarelto, aspirin, statin per vascular HTN - cont home meds HLD - cont statin DM - manage per primary stable for dc from cardiac perspective, follow up with Dr. Crain
--- NOTE | 2020-03-20 15:39 | PN ---
Progress Note (short form) - Note Progress Note: Vascular Surgery: OOB and ambulating, no pain in legs/feet when walking. Vital Signs Period Temp Pulse Resp BP Sys/Ken Pulse Ox Last 24 Hr 98.0 F-99.1 F 91-113 20-20 113-153/44-85 96-98 GEN: A&0x3, NAD LLE: dressing c/d/i to Left calf. foot warm. Inc to groin with pinpoint opening(where staple has dehisced)and with some serous drianage on the dressing today. Two leilani removed that weren't holding the tissue. Left lower ext ulcer size 4x4cm clean. Applied santyl and wet to dry dressing today. A/P: 49 yo male s/p Redo fem-pop bypass with PTFe. Femoral endarterectomy with vein patch angioplasty. s/p bedside lower ext debridement of ulcer 03/19 Diet as tolerated, OOB and ambulate/PT Oral antibiotcs Local wound care Santyl/ wet to dry aspirin/xarelto D/w Dr. Sorensen
== END 2020-03-20 14:47 | disposition home health service (06) | DRG 791 ==
LOC: JER 15:44 → JERBED 17:55 → J6S 23:32 → JICU 03-12 21:10 → J6S 03-15 21:18
PROVIDERS: ADMIT Internal Medicine; ATTEND Internal Medicine
PROC: 04CL0ZZ Extirpation of Matter from Left Femoral Artery, Open Approach (ICD-10-PCS; 2020-03-12)
PROC: 06BQ0ZZ Excision of Left Saphenous Vein, Open Approach (ICD-10-PCS; 2020-03-12)
PROC: 041L09L Bypass Left Femoral Artery to Popliteal Artery with Autologous Venous Tissue, Open Approach (ICD-10-PCS; principal; 2020-03-12 14:00)
DX: T81.89XA Other complications of procedures, not elsewhere classified, initial encounter (principal); N17.9 Acute kidney failure, unspecified; E11.40 Type 2 diabetes mellitus with diabetic neuropathy, unspecified; E11.51 Type 2 diabetes mellitus with diabetic peripheral angiopathy without gangrene; T81.40XA Infection following a procedure, unspecified, initial encounter; L97.223 Non-pressure chronic ulcer of left calf with necrosis of muscle; Z68.41 Body mass index [BMI] 40.0-44.9, adult; E78.5 Hyperlipidemia, unspecified; E66.9 Obesity, unspecified; I10 Essential (primary) hypertension; Z79.4 Long term (current) use of insulin; Z87.891 Personal history of nicotine dependence; I45.10 Unspecified right bundle-branch block; F12.90 Cannabis use, unspecified, uncomplicated; Y83.8 Other surgical procedures as the cause of abnormal reaction of the patient, or of later complication, without mention of misadventure at the time of the procedure
CPT/HCPCS: 36415; 71046-TC-FY; 75635-TC; 80048; 80053; 82962; 83036; 83735; 84100; 85025; 85027; 85610; 86850; 86900; 86901; 86922; 88304-TC; 93005; 93010; 93970-TC; 94760; 97116-GP; 97161-GP; 99285-25; J0131; J1644; U0003

== ENCOUNTER 2020-10-29 00:31 | Inpatient (IN) | payer OTHER ==
[2020-10-29] MEDS ORDERED: PROPOFOL 200 MG/20 ML VIAL IVPUSH ONE ×2 (00:44→01:36)
[2020-10-29] MEDS ORDERED: LIDOCAINE 1%/EPI 1:100000 (20 ML MULTI DOSE VIAL) INF ONE (00:45)
[2020-10-29] MEDS ORDERED: LIDOCAINE 1%/EPI 1:100000 (50 ML MULTI DOSE VIAL) ONE (00:48)
[2020-10-29] MEDS ORDERED: PROPOFOL 20 ML ONE (01:15)
[2020-10-29 01:20] LABS: BASO % 0.7 % (0-2.0); EOS % 4.5 % (0-4.5); HEMATOCRIT 36.8 % (35.4-49); HEMOGLOBIN 11.7 GM/dL (11.7-16.9); LYMPH % 9.4 % (8-40); MCH 25.8 pg (25.7-33.7); MCHC 31.8 g/dl (32.0-35.9); MEAN CELL VOLUME 80.9 fl (80-96); MONO % 7.1 % (3.8-10.2); NEUT % 78.3 % (42.8-82.8); PLATELET COUNT 283 K/MM3 (134-434); RBC 4.55 M/mm3 (4.00-5.60); RDW 15.7 % (11.9-15.9); WHITE BLOOD COUNT 12.8 K/mm3 (4.0-10.0)
[2020-10-29] MEDS ORDERED: PROPOFOL 1,000,000 MCG/100 ML VIAL ONE (01:26)
[2020-10-29 01:36] LABS: POTASSIUM 3.8 mmol/L (3.5-5.1)
[2020-10-29] MEDS ORDERED: CLINDAMYCIN 600MG PREMIX IVPB 600 MG/50 ML BAG IVPB ONE ×3 (01:37→11:27)
[2020-10-29 01:38] LABS: CALCIUM 8.5 mg/dL (8.5-10.1)
[2020-10-29 01:39] LABS: ALBUMIN 2.7 g/dl (3.4-5.0); BLOOD UREA NITROGEN 25.3 mg/dL (7-18)
[2020-10-29 01:42] LABS: CREATININE 1.8 mg/dL (0.55-1.3)
[2020-10-29 01:43] LABS: BILIRUBIN,TOTAL 0.4 mg/dL (0.2-1); TOT PROT 6.8 g/dl (6.4-8.2)
[2020-10-29] MEDS ORDERED: morphine CARPU-JECT 4 MG/1 ML DISP.SYRIN IVPUSH ONE (01:45)
[2020-10-29] MEDS ORDERED: ACETAMINOPHEN 1000 MG/100 ML VIAL (NON FORMULARY) IVPB ONE (01:45)
[2020-10-29] MEDS ORDERED: morphine SULFATE 4 MG/ML VIAL ONE ×2 (01:46→02:06)
[2020-10-29] MEDS ORDERED: ACETAMINOPHEN INJECTION 100 ML IVPB ONE (01:46)
[2020-10-29 01:58] LABS: INR 1.47 (0.83-1.09); PROTHROMBIN TIME (PATIENT) 17.6 SEC (9.7-13.0)
[2020-10-29] MEDS ORDERED: morphine SULFATE 4 MG/ML VIAL IVPUSH ONE (02:03)
[2020-10-29] MEDS ORDERED: MORPHINE SULFATE 2 MG/ML VIAL IVPUSH ONE (06:19)
[2020-10-29] MEDS ORDERED: ASPIRIN COATED 81 MG TABLET.EC ONE (11:26)
[2020-10-29] MEDS ORDERED: amLODIPine BESYLATE 5 MG TABLET (FP) ONE (11:26)
[2020-10-29] MEDS ORDERED: DOCUSATE SODIUM 100 MG CAPSULE (FP) PO ONE (11:27)
[2020-10-29] MEDS ORDERED: CLOPIDOGREL BISULFATE 75 MG TABLET (FP) ONE (11:27)
[2020-10-29] MEDS ORDERED: ACETAMINOPHEN 325 MG TABLET (FP) PO ONE (11:31)
[2020-10-29] MEDS: CLINDAMYCIN 600MG PREMIX IVPB 600 MG/50 ML BAG IVPB SCH ×2 (11:34→17:25)
[2020-10-29] MEDS: amLODIPine BESYLATE 5 MG TABLET (FP) PO SCH (11:34)
[2020-10-29] MEDS: RIVAROXABAN 10 MG TABLET PO SCH (11:34)
[2020-10-29] MEDS: CLOPIDOGREL BISULFATE 75 MG TABLET (FP) PO SCH (11:34)
[2020-10-29] MEDS: ASPIRIN COATED 81 MG TABLET.EC PO SCH (11:34)
[2020-10-29] MEDS: DOCUSATE SODIUM 100 MG CAPSULE (FP) PO SCH ×2 (11:34→21:31)
[2020-10-29] MEDS ORDERED: ACETAMINOPHEN 325 MG TABLET (FP) ONE (11:35)
[2020-10-29] MEDS: INSULIN SLIDING SCALE (NOVOLOG) 1 VIAL SQ SCH ×3 (11:50→21:35)
[2020-10-29] MEDS: GABAPENTIN 300 MG CAPSULE PO SCH ×2 (13:25→21:30)
[2020-10-29 14:15] VITALS: BMI 43.4
[2020-10-29] MEDS: ATORVASTATIN CA 20 MG TABLET (FP) PO SCH (21:31)
[2020-10-29] MEDS: oxyCODONE HCL 5 MG TABLET PO PRN (21:31)
[2020-10-29] MEDS: ACETAMINOPHEN 325 MG TABLET (FP) PO PRN (22:47)
[2020-10-30] MEDS: CLINDAMYCIN 600MG PREMIX IVPB 600 MG/50 ML BAG IVPB SCH ×2 (01:57→09:01)
[2020-10-30] MEDS: GABAPENTIN 300 MG CAPSULE PO SCH ×3 (06:02→21:59)
[2020-10-30] MEDS: oxyCODONE HCL 5 MG TABLET PO PRN ×3 (06:07→20:34)
[2020-10-30] MEDS: INSULIN SLIDING SCALE (NOVOLOG) 1 VIAL SQ SCH ×4 (06:09→22:03)
[2020-10-30] MEDS: ASPIRIN COATED 81 MG TABLET.EC PO SCH (09:01)
[2020-10-30] MEDS: DOCUSATE SODIUM 100 MG CAPSULE (FP) PO SCH ×2 (09:01→21:59)
[2020-10-30] MEDS: CLOPIDOGREL BISULFATE 75 MG TABLET (FP) PO SCH (09:02)
[2020-10-30] MEDS: amLODIPine BESYLATE 5 MG TABLET (FP) PO SCH (09:02)
[2020-10-30] MEDS: RIVAROXABAN 10 MG TABLET PO SCH (09:02)
[2020-10-30 09:19] LABS: BASO % 0.5 % (0-2.0); EOS % 4.5 % (0-4.5); HEMATOCRIT 34.6 % (35.4-49); HEMOGLOBIN 11.3 GM/dL (11.7-16.9); LYMPH % 10.2 % (8-40); MCH 25.8 pg (25.7-33.7); MCHC 32.6 g/dl (32.0-35.9); MEAN CELL VOLUME 79.1 fl (80-96); MONO % 6.6 % (3.8-10.2); NEUT % 78.2 % (42.8-82.8); PLATELET COUNT 263 K/MM3 (134-434); RBC 4.37 M/mm3 (4.00-5.60); RDW 15.8 % (11.9-15.9); WHITE BLOOD COUNT 13.4 K/mm3 (4.0-10.0)
[2020-10-30 10:07] LABS: POTASSIUM 3.9 mmol/L (3.5-5.1)
[2020-10-30 10:21] LABS: ALBUMIN 2.3 g/dl (3.4-5.0); BLOOD UREA NITROGEN 17.2 mg/dL (7-18)
[2020-10-30 10:22] LABS: BILIRUBIN,TOTAL 1.6 mg/dL (0.2-1); TOT PROT 6.1 g/dl (6.4-8.2)
[2020-10-30 10:23] LABS: CALCIUM 8.4 mg/dL (8.5-10.1)
[2020-10-30 10:24] LABS: CREATININE 1.1 mg/dL (0.55-1.3)
[2020-10-30] MEDS: ACETAMINOPHEN 325 MG TABLET (FP) PO PRN (14:15)
[2020-10-30] MEDS: SILVER SULFADIAZINE 1% TOP CREAM 400 GM JAR TP SCH (14:17)
[2020-10-30] MEDS: VANCOMYCIN HCL 1,500 MG in DEXTROSE 5%-WATER - 500 ML IVPB SCH (14:55)
[2020-10-30] MEDS ORDERED: PT OWN MED DRAWER 7, Y5N ONE (20:37)
[2020-10-30] MEDS: ATORVASTATIN CA 20 MG TABLET (FP) PO SCH (21:59)
[2020-10-30] MEDS: INSULIN (LEVEMIR) 100 UNITS/ML UNITS SQ SCH (22:04)
[2020-10-31] MEDS: ACETAMINOPHEN 325 MG TABLET (FP) PO PRN (01:44)
[2020-10-31] MEDS: GABAPENTIN 300 MG CAPSULE PO SCH ×3 (06:29→21:13)
[2020-10-31] MEDS: INSULIN (LEVEMIR) 100 UNITS/ML UNITS SQ SCH ×2 (06:30→21:17)
[2020-10-31] MEDS: INSULIN SLIDING SCALE (NOVOLOG) 1 VIAL SQ SCH ×4 (06:31→21:20)
[2020-10-31] MEDS: amLODIPine BESYLATE 5 MG TABLET (FP) PO SCH (09:58)
[2020-10-31] MEDS: DOCUSATE SODIUM 100 MG CAPSULE (FP) PO SCH ×2 (09:58→21:13)
[2020-10-31] MEDS: oxyCODONE HCL 5 MG TABLET PO PRN ×2 (10:23→21:13)
[2020-10-31] MEDS ORDERED: INSULIN (NOVOLOG) ASPART 100 UNITS/ML 10ML VIAL ONE (11:25)
[2020-10-31 12:16] LABS: BASO % 0.6 % (0-2.0); EOS % 4.4 % (0-4.5); HEMATOCRIT 35.7 % (35.4-49); HEMOGLOBIN 11.8 GM/dL (11.7-16.9); LYMPH % 12.8 % (8-40); MCH 25.8 pg (25.7-33.7); MCHC 32.9 g/dl (32.0-35.9); MEAN CELL VOLUME 78.4 fl (80-96); MEAN PLT VOLUME 7.4 fl (7.5-11.1); MONO % 8.1 % (3.8-10.2); NEUT % 74.1 % (42.8-82.8); PLATELET COUNT 268 K/MM3 (134-434); RBC 4.56 M/mm3 (4.00-5.60); RDW 15.8 % (11.9-15.9); WHITE BLOOD COUNT 12.1 K/mm3 (4.0-10.0)
[2020-10-31 12:37] LABS: CALCIUM 8.7 mg/dL (8.5-10.1)
[2020-10-31 12:38] LABS: BLOOD UREA NITROGEN 14.5 mg/dL (7-18)
[2020-10-31 12:41] LABS: CREATININE 1.1 mg/dL (0.55-1.3)
[2020-10-31] MEDS: VANCOMYCIN HCL 1,500 MG in DEXTROSE 5%-WATER - 500 ML IVPB SCH (15:51)
[2020-10-31] MEDS ORDERED: INSULIN (LEVEMIR) 100 UNITS/ML UNITS SQ ONE ×2 (16:35→16:36)
[2020-10-31] MEDS: SILVER SULFADIAZINE 1% TOP CREAM 400 GM JAR TP SCH (17:08)
[2020-10-31] MEDS: ATORVASTATIN CA 20 MG TABLET (FP) PO SCH (21:13)
[2020-11-01] MEDS: oxyCODONE HCL 5 MG TABLET PO PRN ×3 (04:58→21:28)
[2020-11-01] MEDS: INSULIN SLIDING SCALE (NOVOLOG) 1 VIAL SQ SCH ×4 (06:20→21:31)
[2020-11-01] MEDS: INSULIN (LEVEMIR) 100 UNITS/ML UNITS SQ SCH ×2 (06:21→21:29)
[2020-11-01] MEDS: GABAPENTIN 300 MG CAPSULE PO SCH ×3 (06:23→21:28)
[2020-11-01 09:04] LABS: ACTIVATED PTT 26.3 SECONDS (25.2-36.5); INR 1.17 (0.83-1.09); PROTHROMBIN TIME (PATIENT) 14.1 SEC (9.7-13.0)
[2020-11-01] MEDS: DOCUSATE SODIUM 100 MG CAPSULE (FP) PO SCH ×2 (09:07→21:28)
[2020-11-01] MEDS: amLODIPine BESYLATE 5 MG TABLET (FP) PO SCH (09:07)
[2020-11-01 09:09] LABS: HEMATOCRIT 37.9 % (35.4-49); HEMOGLOBIN 12.5 GM/dL (11.7-16.9); MCHC 32.9 g/dl (32.0-35.9); MEAN PLT VOLUME 7.6 fl (7.5-11.1); PLATELET COUNT 316 K/MM3 (134-434); RDW 15.7 % (11.9-15.9); WHITE BLOOD COUNT 13.9 K/mm3 (4.0-10.0)
[2020-11-01 09:30] LABS: ALBUMIN 2.6 g/dl (3.4-5.0); BLOOD UREA NITROGEN 15.8 mg/dL (7-18); CALCIUM 8.8 mg/dL (8.5-10.1)
[2020-11-01 09:34] LABS: CREATININE 1.2 mg/dL (0.55-1.3)
[2020-11-01 09:35] LABS: BILIRUBIN,TOTAL 0.8 mg/dL (0.2-1); TOT PROT 7.1 g/dl (6.4-8.2)
[2020-11-01] MEDS: VANCOMYCIN HCL 1,500 MG in DEXTROSE 5%-WATER - 500 ML IVPB SCH ×2 (11:37→15:27)
[2020-11-01] MEDS ORDERED: MIDAZOLAM HCL 2 MG/2 ML SINGLE DOSE VIAL ONE (15:19)
[2020-11-01] MEDS ORDERED: GLYCOPYRROLATE 0.2 MG/1 ML VIAL ONE ×2 (15:19→16:53)
[2020-11-01] MEDS ORDERED: fentaNYL CITRATE 250 MCG/5 ML VIAL ONE (15:19)
[2020-11-01] MEDS ORDERED: PROPOFOL 20 ML ONE ×2 (15:26)
[2020-11-01] MEDS ORDERED: NEOSTIGMINE METHYLSULFATE 0.5 MG/ML - 10 ML MDV ONE (16:34)
[2020-11-01] MEDS ORDERED: LIDOCAINE HCL/PF 2% SDV 5ML VIAL ONE (16:53)
[2020-11-01] MEDS ORDERED: LIDOCAINE HCL 2% JELLY (5 ML/TUBE) ONE (16:53)
[2020-11-01] MEDS ORDERED: ONDANSETRON 4 MG/2 ML VIAL IVPUSH PRN (16:55)
[2020-11-01] MEDS ORDERED: INSULIN SLIDING SCALE (NOVOLOG) 1 VIAL SQ ONE (17:17)
[2020-11-01] MEDS ORDERED: INSULIN (NOVOLOG) ASPART 100 UNITS/ML 10ML VIAL SQ ONE (17:20)
[2020-11-01] MEDS: LACTATED RINGERS SOLUTION 1,000 ML IV SCH ×2 (18:05→19:03)
[2020-11-01] MEDS: [UNRECOGNIZED DRUG - OTHER] NR SCH ×2 (18:11→18:13)
[2020-11-01] MEDS: SILVER SULFADIAZINE 1% TOP CREAM 400 GM JAR TP SCH (18:11)
[2020-11-01] MEDS: INSULIN PUMP NR SCH ×2 (18:11→18:13)
[2020-11-01] MEDS: ACETAMINOPHEN 325 MG TABLET (FP) PO PRN (21:27)
[2020-11-01] MEDS: ATORVASTATIN CA 20 MG TABLET (FP) PO SCH (21:28)
[2020-11-02] MEDS: GABAPENTIN 300 MG CAPSULE PO SCH ×3 (06:09→21:03)
[2020-11-02] MEDS: INSULIN (LEVEMIR) 100 UNITS/ML UNITS SQ SCH ×2 (06:10→21:04)
[2020-11-02] MEDS: INSULIN SLIDING SCALE (NOVOLOG) 1 VIAL SQ SCH ×4 (06:11→21:07)
[2020-11-02] MEDS ORDERED: PT OWN MED DRAWER 7, Y5N ONE (10:04)
[2020-11-02 10:06] LABS: BASO % 0.5 % (0-2.0); EOS % 5.3 % (0-4.5); HEMATOCRIT 35.2 % (35.4-49); HEMOGLOBIN 11.4 GM/dL (11.7-16.9); LYMPH % 14.7 % (8-40); MCH 25.7 pg (25.7-33.7); MCHC 32.3 g/dl (32.0-35.9); MEAN CELL VOLUME 79.6 fl (80-96); MEAN PLT VOLUME 7.6 fl (7.5-11.1); MONO % 6.8 % (3.8-10.2); NEUT % 72.7 % (42.8-82.8); PLATELET COUNT 330 K/MM3 (134-434); RBC 4.42 M/mm3 (4.00-5.60); RDW 15.8 % (11.9-15.9); WHITE BLOOD COUNT 12.8 K/mm3 (4.0-10.0)
[2020-11-02] MEDS: RIVAROXABAN 10 MG TABLET PO SCH (10:09)
[2020-11-02] MEDS: DOCUSATE SODIUM 100 MG CAPSULE (FP) PO SCH ×2 (10:28→21:03)
[2020-11-02] MEDS: amLODIPine BESYLATE 5 MG TABLET (FP) PO SCH (10:29)
[2020-11-02] MEDS: SILVER SULFADIAZINE 1% TOP CREAM 400 GM JAR TP SCH (10:30)
[2020-11-02] MEDS: ASPIRIN COATED 81 MG TABLET.EC PO SCH (10:30)
[2020-11-02 10:37] LABS: POTASSIUM 3.9 mmol/L (3.5-5.1)
[2020-11-02 10:40] LABS: ALBUMIN 2.3 g/dl (3.4-5.0); BLOOD UREA NITROGEN 13.6 mg/dL (7-18); CALCIUM 8.5 mg/dL (8.5-10.1)
[2020-11-02 10:43] LABS: CREATININE 1.2 mg/dL (0.55-1.3)
[2020-11-02 10:45] LABS: BILIRUBIN,TOTAL 0.5 mg/dL (0.2-1); TOT PROT 6.4 g/dl (6.4-8.2)
[2020-11-02] MEDS ORDERED: VANCOMYCIN HCL 1,500 MG in DEXTROSE 5%-WATER - 500 ML IVPB SCH (12:00)
[2020-11-02] MEDS: POLYETHYLENE GLYCOL 3350 119 GM BTL PO SCH (13:23)
[2020-11-02] MEDS: oxyCODONE HCL 5 MG TABLET PO PRN ×2 (13:25→21:03)
[2020-11-02] MEDS: ACETAMINOPHEN 325 MG TABLET (FP) PO PRN (13:27)
[2020-11-02] MEDS: ATORVASTATIN CA 20 MG TABLET (FP) PO SCH (21:03)
[2020-11-03] MEDS: oxyCODONE HCL 5 MG TABLET PO PRN ×2 (04:46→18:20)
[2020-11-03] MEDS: GABAPENTIN 300 MG CAPSULE PO SCH ×3 (06:20→22:46)
[2020-11-03] MEDS: INSULIN (NOVOLOG) ASPART 100 UNITS/ML 10ML VIAL SQ SCH ×3 (06:20→17:17)
[2020-11-03] MEDS: INSULIN SLIDING SCALE (NOVOLOG) 1 VIAL SQ SCH ×4 (06:21→22:48)
[2020-11-03] MEDS: INSULIN (LEVEMIR) 100 UNITS/ML UNITS SQ SCH ×2 (06:22→22:50)
[2020-11-03] MEDS: SILVER SULFADIAZINE 1% TOP CREAM 400 GM JAR TP SCH (07:00)
[2020-11-03] MEDS: POLYETHYLENE GLYCOL 3350 119 GM BTL PO SCH (10:18)
[2020-11-03] MEDS: RIVAROXABAN 10 MG TABLET PO SCH (10:18)
[2020-11-03] MEDS: DOCUSATE SODIUM 100 MG CAPSULE (FP) PO SCH ×2 (10:18→22:46)
[2020-11-03] MEDS: ASPIRIN COATED 81 MG TABLET.EC PO SCH (10:18)
[2020-11-03] MEDS: amLODIPine BESYLATE 5 MG TABLET (FP) PO SCH (10:18)
[2020-11-03 12:49] LABS: BASO % 1.1 % (0-2.0); HEMATOCRIT 34.3 % (35.4-49); HEMOGLOBIN 11.1 GM/dL (11.7-16.9); LYMPH % 18.2 % (8-40); MCH 25.7 pg (25.7-33.7); MCHC 32.4 g/dl (32.0-35.9); MEAN CELL VOLUME 79.4 fl (80-96); MEAN PLT VOLUME 7.7 fl (7.5-11.1); MONO % 6.9 % (3.8-10.2); NEUT % 67.8 % (42.8-82.8); PLATELET COUNT 327 K/MM3 (134-434); RBC 4.32 M/mm3 (4.00-5.60); RDW 15.6 % (11.9-15.9); WHITE BLOOD COUNT 12.5 K/mm3 (4.0-10.0)
[2020-11-03 13:04] LABS: POTASSIUM 4.3 mmol/L (3.5-5.1)
[2020-11-03 13:06] LABS: CALCIUM 8.5 mg/dL (8.5-10.1)
[2020-11-03 13:07] LABS: ALBUMIN 2.3 g/dl (3.4-5.0); BLOOD UREA NITROGEN 14.7 mg/dL (7-18)
[2020-11-03 13:10] LABS: CREATININE 1.2 mg/dL (0.55-1.3)
[2020-11-03 13:12] LABS: BILIRUBIN,TOTAL 0.4 mg/dL (0.2-1); TOT PROT 6.3 g/dl (6.4-8.2)
[2020-11-03] MEDS: DOXYCYCLINE HYCLATE 100 MG CAPSULE PO SCH (20:33)
[2020-11-03] MEDS: ATORVASTATIN CA 20 MG TABLET (FP) PO SCH (22:46)
[2020-11-04] MEDS: INSULIN (LEVEMIR) 100 UNITS/ML UNITS SQ SCH ×2 (06:22→22:19)
[2020-11-04] MEDS: GABAPENTIN 300 MG CAPSULE PO SCH ×3 (06:23→22:10)
[2020-11-04] MEDS: INSULIN SLIDING SCALE (NOVOLOG) 1 VIAL SQ SCH ×4 (06:24→22:17)
[2020-11-04] MEDS: INSULIN (NOVOLOG) ASPART 100 UNITS/ML 10ML VIAL SQ SCH ×3 (06:25→17:08)
[2020-11-04] MEDS: DOCUSATE SODIUM 100 MG CAPSULE (FP) PO SCH ×2 (09:01→22:09)
[2020-11-04] MEDS: RIVAROXABAN 10 MG TABLET PO SCH (09:02)
[2020-11-04] MEDS: ASPIRIN COATED 81 MG TABLET.EC PO SCH (09:02)
[2020-11-04] MEDS: amLODIPine BESYLATE 5 MG TABLET (FP) PO SCH (09:02)
[2020-11-04] MEDS: DOXYCYCLINE HYCLATE 100 MG CAPSULE PO SCH ×2 (09:02→17:08)
[2020-11-04] MEDS: POLYETHYLENE GLYCOL 3350 119 GM BTL PO SCH (09:15)
[2020-11-04 11:37] LABS: BASO % 0.7 % (0-2.0); EOS % 4.9 % (0-4.5); HEMATOCRIT 34.3 % (35.4-49); HEMOGLOBIN 11.1 GM/dL (11.7-16.9); LYMPH % 19.8 % (8-40); MCH 25.6 pg (25.7-33.7); MCHC 32.3 g/dl (32.0-35.9); MEAN CELL VOLUME 79.4 fl (80-96); MEAN PLT VOLUME 7.6 fl (7.5-11.1); NEUT % 67.6 % (42.8-82.8); PLATELET COUNT 333 K/MM3 (134-434); RBC 4.33 M/mm3 (4.00-5.60)
[2020-11-04 11:43] LABS: POTASSIUM 4.4 mmol/L (3.5-5.1)
[2020-11-04 11:47] LABS: CALCIUM 8.7 mg/dL (8.5-10.1)
[2020-11-04 11:48] LABS: ALBUMIN 2.3 g/dl (3.4-5.0); BLOOD UREA NITROGEN 16.6 mg/dL (7-18)
[2020-11-04 11:51] LABS: CREATININE 1.2 mg/dL (0.55-1.3)
[2020-11-04 11:53] LABS: BILIRUBIN,TOTAL 0.4 mg/dL (0.2-1); TOT PROT 6.1 g/dl (6.4-8.2)
[2020-11-04] MEDS: SILVER SULFADIAZINE 1% TOP CREAM 400 GM JAR TP SCH (16:00)
[2020-11-04] MEDS: ACETAMINOPHEN 325 MG TABLET (FP) PO PRN (22:09)
[2020-11-04] MEDS: ATORVASTATIN CA 20 MG TABLET (FP) PO SCH (22:10)
[2020-11-05] MEDS: oxyCODONE HCL 5 MG TABLET PO PRN ×3 (04:36→21:43)
[2020-11-05] MEDS: GABAPENTIN 300 MG CAPSULE PO SCH ×3 (06:19→21:32)
[2020-11-05] MEDS: INSULIN SLIDING SCALE (NOVOLOG) 1 VIAL SQ SCH ×4 (06:50→21:34)
[2020-11-05] MEDS: INSULIN (LEVEMIR) 100 UNITS/ML UNITS SQ SCH ×2 (06:55→21:33)
[2020-11-05] MEDS: INSULIN (NOVOLOG) ASPART 100 UNITS/ML 10ML VIAL SQ SCH ×3 (07:21→16:30)
[2020-11-05] MEDS ORDERED: PT OWN MED DRAWER 7, Y5N ONE (08:53)
[2020-11-05] MEDS: amLODIPine BESYLATE 5 MG TABLET (FP) PO SCH (09:05)
[2020-11-05] MEDS: DOXYCYCLINE HYCLATE 100 MG CAPSULE PO SCH ×2 (09:05→17:45)
[2020-11-05] MEDS: RIVAROXABAN 10 MG TABLET PO SCH (09:05)
[2020-11-05] MEDS: ASPIRIN COATED 81 MG TABLET.EC PO SCH (09:05)
[2020-11-05] MEDS: DOCUSATE SODIUM 100 MG CAPSULE (FP) PO SCH ×2 (09:05→21:32)
[2020-11-05] MEDS: POLYETHYLENE GLYCOL 3350 119 GM BTL PO SCH (09:13)
[2020-11-05 09:43] LABS: BASO % 0.8 % (0-2.0); HEMATOCRIT 34.9 % (35.4-49); HEMOGLOBIN 11.3 GM/dL (11.7-16.9); MCH 25.6 pg (25.7-33.7); MCHC 32.3 g/dl (32.0-35.9); MEAN CELL VOLUME 79.3 fl (80-96); MEAN PLT VOLUME 7.4 fl (7.5-11.1); MONO % 5.5 % (3.8-10.2); NEUT % 65.7 % (42.8-82.8); PLATELET COUNT 409 K/MM3 (134-434); RBC 4.41 M/mm3 (4.00-5.60); WHITE BLOOD COUNT 12.5 K/mm3 (4.0-10.0)
[2020-11-05 10:03] LABS: POTASSIUM 4.1 mmol/L (3.5-5.1)
[2020-11-05 10:28] LABS: BILIRUBIN,TOTAL 0.4 mg/dL (0.2-1); TOT PROT 6.6 g/dl (6.4-8.2)
[2020-11-05 10:33] LABS: BLOOD UREA NITROGEN 16.3 mg/dL (7-18)
[2020-11-05 10:35] LABS: ALBUMIN 2.5 g/dl (3.4-5.0); CALCIUM 8.8 mg/dL (8.5-10.1)
[2020-11-05 10:37] LABS: CREATININE 1.2 mg/dL (0.55-1.3)
[2020-11-05] MEDS: SILVER SULFADIAZINE 1% TOP CREAM 400 GM JAR TP SCH (14:00)
[2020-11-05] MEDS: ATORVASTATIN CA 20 MG TABLET (FP) PO SCH (21:32)
[2020-11-05] MEDS: COLLAGENASE CLOSTRIDIUM HIST. 30 GRAMS TUBE TP SCH (21:34)
[2020-11-06] MEDS: GABAPENTIN 300 MG CAPSULE PO SCH ×3 (06:24→21:33)
[2020-11-06] MEDS: INSULIN SLIDING SCALE (NOVOLOG) 1 VIAL SQ SCH ×4 (09:02→21:33)
[2020-11-06] MEDS: INSULIN (NOVOLOG) ASPART 100 UNITS/ML 10ML VIAL SQ SCH ×3 (09:03→17:56)
[2020-11-06] MEDS: INSULIN (LEVEMIR) 100 UNITS/ML UNITS SQ SCH ×2 (09:07→21:34)
[2020-11-06] MEDS: DOXYCYCLINE HYCLATE 100 MG CAPSULE PO SCH ×2 (09:18→18:00)
[2020-11-06] MEDS: amLODIPine BESYLATE 5 MG TABLET (FP) PO SCH (09:18)
[2020-11-06] MEDS: DOCUSATE SODIUM 100 MG CAPSULE (FP) PO SCH ×2 (09:18→21:33)
[2020-11-06] MEDS: ASPIRIN COATED 81 MG TABLET.EC PO SCH (09:18)
[2020-11-06] MEDS: SILVER SULFADIAZINE 1% TOP CREAM 400 GM JAR TP SCH (17:57)
[2020-11-06] MEDS: COLLAGENASE CLOSTRIDIUM HIST. 30 GRAMS TUBE TP SCH (17:57)
[2020-11-06] MEDS: POLYETHYLENE GLYCOL 3350 119 GM BTL PO SCH (17:57)
[2020-11-06] MEDS: oxyCODONE HCL 5 MG TABLET PO PRN (20:11)
[2020-11-06] MEDS: ATORVASTATIN CA 20 MG TABLET (FP) PO SCH (21:33)
[2020-11-07] MEDS: GABAPENTIN 300 MG CAPSULE PO SCH ×3 (06:14→22:26)
[2020-11-07] MEDS: INSULIN (LEVEMIR) 100 UNITS/ML UNITS SQ SCH ×2 (06:15→22:25)
[2020-11-07] MEDS: INSULIN SLIDING SCALE (NOVOLOG) 1 VIAL SQ SCH ×4 (06:16→22:22)
[2020-11-07] MEDS: INSULIN (NOVOLOG) ASPART 100 UNITS/ML 10ML VIAL SQ SCH ×3 (06:17→16:35)
[2020-11-07] MEDS: ASPIRIN COATED 81 MG TABLET.EC PO SCH (09:49)
[2020-11-07] MEDS: LISINOPRIL 5 MG TABLET PO SCH (09:49)
[2020-11-07] MEDS: DOCUSATE SODIUM 100 MG CAPSULE (FP) PO SCH ×2 (09:50→22:26)
[2020-11-07] MEDS: POLYETHYLENE GLYCOL 3350 119 GM BTL PO SCH (09:51)
[2020-11-07] MEDS: RIVAROXABAN 10 MG TABLET PO SCH (09:52)
[2020-11-07] MEDS: DOXYCYCLINE HYCLATE 100 MG CAPSULE PO SCH ×2 (09:52→18:10)
[2020-11-07] MEDS: amLODIPine BESYLATE 2.5 MG TABLET (FP) PO SCH (09:52)
[2020-11-07] MEDS: SILVER SULFADIAZINE 1% TOP CREAM 400 GM JAR TP SCH (09:52)
[2020-11-07] MEDS: COLLAGENASE CLOSTRIDIUM HIST. 30 GRAMS TUBE TP SCH (09:53)
[2020-11-07 10:08] LABS: BASO % 1.2 % (0-2.0); EOS % 4.5 % (0-4.5); HEMOGLOBIN 11.2 GM/dL (11.7-16.9); LYMPH % 27.2 % (8-40); MCH 25.7 pg (25.7-33.7); MEAN CELL VOLUME 80.2 fl (80-96); MEAN PLT VOLUME 7.2 fl (7.5-11.1); MONO % 4.4 % (3.8-10.2); NEUT % 62.7 % (42.8-82.8); PLATELET COUNT 384 K/MM3 (134-434); RBC 4.36 M/mm3 (4.00-5.60); RDW 16.1 % (11.9-15.9); WHITE BLOOD COUNT 10.2 K/mm3 (4.0-10.0)
[2020-11-07 10:29] LABS: POTASSIUM 4.5 mmol/L (3.5-5.1)
[2020-11-07 10:43] LABS: BILIRUBIN,TOTAL 0.3 mg/dL (0.2-1); TOT PROT 6.4 g/dl (6.4-8.2)
[2020-11-07 10:46] LABS: ALBUMIN 2.5 g/dl (3.4-5.0); CALCIUM 8.8 mg/dL (8.5-10.1)
[2020-11-07 10:53] LABS: CREATININE 1.2 mg/dL (0.55-1.3)
[2020-11-07] MEDS: oxyCODONE HCL 5 MG TABLET PO PRN (21:07)
[2020-11-07] MEDS: ATORVASTATIN CA 20 MG TABLET (FP) PO SCH (22:26)
[2020-11-08] MEDS: INSULIN (LEVEMIR) 100 UNITS/ML UNITS SQ SCH ×2 (06:44→21:42)
[2020-11-08] MEDS: GABAPENTIN 300 MG CAPSULE PO SCH ×3 (06:44→21:41)
[2020-11-08] MEDS: INSULIN (NOVOLOG) ASPART 100 UNITS/ML 10ML VIAL SQ SCH ×3 (06:56→17:28)
[2020-11-08] MEDS: INSULIN SLIDING SCALE (NOVOLOG) 1 VIAL SQ SCH ×5 (06:57→21:46)
[2020-11-08] MEDS: LISINOPRIL 5 MG TABLET PO SCH (09:15)
[2020-11-08] MEDS: amLODIPine BESYLATE 2.5 MG TABLET (FP) PO SCH (09:15)
[2020-11-08] MEDS: ASPIRIN COATED 81 MG TABLET.EC PO SCH (09:16)
[2020-11-08] MEDS: DOCUSATE SODIUM 100 MG CAPSULE (FP) PO SCH ×2 (09:16→21:41)
[2020-11-08] MEDS: RIVAROXABAN 10 MG TABLET PO SCH (09:16)
[2020-11-08] MEDS: POLYETHYLENE GLYCOL 3350 119 GM BTL PO SCH (09:18)
[2020-11-08 09:34] LABS: BASO % 0.8 % (0-2.0); EOS % 4.6 % (0-4.5); HEMATOCRIT 34.3 % (35.4-49); HEMOGLOBIN 11.3 GM/dL (11.7-16.9); LYMPH % 30.4 % (8-40); MCH 26.1 pg (25.7-33.7); MCHC 32.8 g/dl (32.0-35.9); MEAN CELL VOLUME 79.6 fl (80-96); MEAN PLT VOLUME 7.4 fl (7.5-11.1); MONO % 5.4 % (3.8-10.2); NEUT % 58.8 % (42.8-82.8); PLATELET COUNT 400 K/MM3 (134-434); RBC 4.32 M/mm3 (4.00-5.60); RDW 15.8 % (11.9-15.9); WHITE BLOOD COUNT 10.3 K/mm3 (4.0-10.0)
[2020-11-08 09:47] LABS: POTASSIUM 4.4 mmol/L (3.5-5.1)
[2020-11-08 10:26] LABS: ALBUMIN 2.6 g/dl (3.4-5.0); BLOOD UREA NITROGEN 18.1 mg/dL (7-18); CALCIUM 8.9 mg/dL (8.5-10.1)
[2020-11-08 10:30] LABS: CREATININE 1.2 mg/dL (0.55-1.3); TOT PROT 6.4 g/dl (6.4-8.2)
[2020-11-08 10:36] LABS: BILIRUBIN,TOTAL 0.6 mg/dL (0.2-1)
[2020-11-08] MEDS: DOXYCYCLINE HYCLATE 100 MG CAPSULE PO SCH ×2 (11:43→18:14)
[2020-11-08] MEDS: SILVER SULFADIAZINE 1% TOP CREAM 400 GM JAR TP SCH (17:28)
[2020-11-08] MEDS: COLLAGENASE CLOSTRIDIUM HIST. 30 GRAMS TUBE TP SCH (17:28)
[2020-11-08] MEDS: ATORVASTATIN CA 20 MG TABLET (FP) PO SCH (21:41)
[2020-11-08] MEDS: oxyCODONE HCL 5 MG TABLET PO PRN (23:53)
[2020-11-09] MEDS: GABAPENTIN 300 MG CAPSULE PO SCH ×3 (06:27→22:00)
[2020-11-09] MEDS: INSULIN (LEVEMIR) 100 UNITS/ML UNITS SQ SCH ×3 (06:28→22:41)
[2020-11-09] MEDS: INSULIN SLIDING SCALE (NOVOLOG) 1 VIAL SQ SCH ×4 (06:29→22:00)
[2020-11-09 08:50] LABS: BASO % 0.8 % (0-2.0); EOS % 4.9 % (0-4.5); HEMOGLOBIN 11.4 GM/dL (11.7-16.9); LYMPH % 30.2 % (8-40); MCH 25.9 pg (25.7-33.7); MCHC 32.4 g/dl (32.0-35.9); MEAN CELL VOLUME 79.8 fl (80-96); MEAN PLT VOLUME 7.2 fl (7.5-11.1); MONO % 5.2 % (3.8-10.2); NEUT % 58.9 % (42.8-82.8); PLATELET COUNT 380 K/MM3 (134-434); RBC 4.39 M/mm3 (4.00-5.60); RDW 15.9 % (11.9-15.9); WHITE BLOOD COUNT 10.5 K/mm3 (4.0-10.0)
[2020-11-09 09:05] LABS: POTASSIUM 4.6 mmol/L (3.5-5.1)
[2020-11-09 09:09] LABS: ALBUMIN 2.6 g/dl (3.4-5.0); BLOOD UREA NITROGEN 19.3 mg/dL (7-18)
[2020-11-09 09:12] LABS: CREATININE 1.3 mg/dL (0.55-1.3)
[2020-11-09 09:13] LABS: CALCIUM 8.9 mg/dL (8.5-10.1)
[2020-11-09 09:14] LABS: BILIRUBIN,TOTAL 0.9 mg/dL (0.2-1); TOT PROT 6.3 g/dl (6.4-8.2)
[2020-11-09] MEDS: ASPIRIN COATED 81 MG TABLET.EC PO SCH (10:29)
[2020-11-09] MEDS: amLODIPine BESYLATE 2.5 MG TABLET (FP) PO SCH (10:29)
[2020-11-09] MEDS: LISINOPRIL 5 MG TABLET PO SCH (10:29)
[2020-11-09] MEDS: DOCUSATE SODIUM 100 MG CAPSULE (FP) PO SCH ×2 (10:29→22:00)
[2020-11-09] MEDS: DOXYCYCLINE HYCLATE 100 MG CAPSULE PO SCH ×2 (10:29→17:58)
[2020-11-09] MEDS: RIVAROXABAN 10 MG TABLET PO SCH (10:29)
[2020-11-09] MEDS: POLYETHYLENE GLYCOL 3350 119 GM BTL PO SCH (10:29)
[2020-11-09] MEDS: SILVER SULFADIAZINE 1% TOP CREAM 400 GM JAR TP SCH (10:31)
[2020-11-09] MEDS: COLLAGENASE CLOSTRIDIUM HIST. 30 GRAMS TUBE TP SCH (10:31)
[2020-11-09] MEDS: INSULIN (NOVOLOG) ASPART 100 UNITS/ML 10ML VIAL SQ SCH ×3 (10:49→18:00)
[2020-11-09] MEDS: ATORVASTATIN CA 20 MG TABLET (FP) PO SCH (22:00)
[2020-11-09] MEDS: oxyCODONE HCL 5 MG TABLET PO PRN (23:38)
[2020-11-10] MEDS: GABAPENTIN 300 MG CAPSULE PO SCH ×3 (05:17→21:07)
[2020-11-10] MEDS: INSULIN (LEVEMIR) 100 UNITS/ML UNITS SQ SCH ×2 (06:49→21:08)
[2020-11-10] MEDS: INSULIN (NOVOLOG) ASPART 100 UNITS/ML 10ML VIAL SQ SCH ×3 (08:27→17:46)
[2020-11-10] MEDS: INSULIN SLIDING SCALE (NOVOLOG) 1 VIAL SQ SCH ×4 (08:28→21:16)
[2020-11-10] MEDS: DOCUSATE SODIUM 100 MG CAPSULE (FP) PO SCH ×2 (10:48→21:07)
[2020-11-10] MEDS: POLYETHYLENE GLYCOL 3350 119 GM BTL PO SCH (10:48)
[2020-11-10] MEDS: amLODIPine BESYLATE 2.5 MG TABLET (FP) PO SCH (10:49)
[2020-11-10] MEDS: RIVAROXABAN 10 MG TABLET PO SCH (10:49)
[2020-11-10] MEDS: ASPIRIN COATED 81 MG TABLET.EC PO SCH (10:49)
[2020-11-10] MEDS: DOXYCYCLINE HYCLATE 100 MG CAPSULE PO SCH ×2 (10:49→17:48)
[2020-11-10] MEDS: LISINOPRIL 5 MG TABLET PO SCH (10:50)
[2020-11-10] MEDS: SILVER SULFADIAZINE 1% TOP CREAM 400 GM JAR TP SCH (10:59)
[2020-11-10] MEDS: COLLAGENASE CLOSTRIDIUM HIST. 30 GRAMS TUBE TP SCH (11:00)
[2020-11-10] MEDS: oxyCODONE HCL 5 MG TABLET PO PRN (19:01)
[2020-11-10] MEDS: ATORVASTATIN CA 20 MG TABLET (FP) PO SCH (21:07)
[2020-11-11] MEDS: GABAPENTIN 300 MG CAPSULE PO SCH ×3 (05:10→21:49)
[2020-11-11] MEDS: INSULIN (LEVEMIR) 100 UNITS/ML UNITS SQ SCH ×2 (06:49→21:48)
[2020-11-11] MEDS: INSULIN SLIDING SCALE (NOVOLOG) 1 VIAL SQ SCH ×4 (08:34→21:46)
[2020-11-11] MEDS: INSULIN (NOVOLOG) ASPART 100 UNITS/ML 10ML VIAL SQ SCH ×3 (08:36→16:20)
[2020-11-11] MEDS ORDERED: PT OWN MED DRAWER 7, Y5N ONE (10:07)
[2020-11-11] MEDS: ASPIRIN COATED 81 MG TABLET.EC PO SCH (10:27)
[2020-11-11] MEDS: RIVAROXABAN 10 MG TABLET PO SCH (10:27)
[2020-11-11] MEDS: LISINOPRIL 5 MG TABLET PO SCH (10:28)
[2020-11-11] MEDS: DOCUSATE SODIUM 100 MG CAPSULE (FP) PO SCH ×2 (10:28→21:50)
[2020-11-11] MEDS: POLYETHYLENE GLYCOL 3350 119 GM BTL PO SCH (10:29)
[2020-11-11] MEDS: amLODIPine BESYLATE 2.5 MG TABLET (FP) PO SCH (10:29)
[2020-11-11] MEDS: COLLAGENASE CLOSTRIDIUM HIST. 30 GRAMS TUBE TP SCH (16:00)
[2020-11-11] MEDS: SILVER SULFADIAZINE 1% TOP CREAM 400 GM JAR TP SCH (16:00)
[2020-11-11] MEDS: ATORVASTATIN CA 20 MG TABLET (FP) PO SCH (21:49)
[2020-11-11] MEDS ORDERED: oxyCODONE HCL 5 MG TABLET PO ONE (23:53)
[2020-11-12] MEDS: INSULIN (LEVEMIR) 100 UNITS/ML UNITS SQ SCH (06:56)
[2020-11-12] MEDS: GABAPENTIN 300 MG CAPSULE PO SCH (06:56)
[2020-11-12] MEDS: INSULIN SLIDING SCALE (NOVOLOG) 1 VIAL SQ SCH ×2 (08:59→12:31)
[2020-11-12] MEDS: INSULIN (NOVOLOG) ASPART 100 UNITS/ML 10ML VIAL SQ SCH ×2 (08:59→12:31)
[2020-11-12] MEDS: POLYETHYLENE GLYCOL 3350 119 GM BTL PO SCH (09:57)
[2020-11-12] MEDS: DOCUSATE SODIUM 100 MG CAPSULE (FP) PO SCH (09:57)
[2020-11-12] MEDS: ASPIRIN COATED 81 MG TABLET.EC PO SCH (09:57)
[2020-11-12] MEDS: SILVER SULFADIAZINE 1% TOP CREAM 400 GM JAR TP SCH (09:58)
[2020-11-12] MEDS: COLLAGENASE CLOSTRIDIUM HIST. 30 GRAMS TUBE TP SCH (09:58)
[2020-11-12] MEDS: RIVAROXABAN 10 MG TABLET PO SCH (09:58)
[2020-11-12] MEDS: LISINOPRIL 5 MG TABLET PO SCH (09:59)
[2020-11-12] MEDS: amLODIPine BESYLATE 2.5 MG TABLET (FP) PO SCH (09:59)
[2020-11-12] MEDS: ACETAMINOPHEN 325 MG TABLET (FP) PO PRN (12:31)
[2020-11-12 12:55] VITALS: BP 111/52; PULSE 75; TEMP 98
== END 2020-11-12 13:52 | disposition home health service (06) | DRG 197 ==
LOC: JER 00:31 → JERBED 06:00 → J5S 12:00
PROVIDERS: ADMIT Internal Medicine; ATTEND Internal Medicine
PROC: 0J900ZX Drainage of Scalp Subcutaneous Tissue and Fascia, Open Approach, Diagnostic (ICD-10-PCS; principal; 2020-10-29)
PROC: 0J900ZX Drainage of Scalp Subcutaneous Tissue and Fascia, Open Approach, Diagnostic (ICD-10-PCS; 2020-11-01)
PROC: 0JB00ZZ Excision of Scalp Subcutaneous Tissue and Fascia, Open Approach (ICD-10-PCS; 2020-11-01)
DX: E11.52 Type 2 diabetes mellitus with diabetic peripheral angiopathy with gangrene (principal); L02.831 Carbuncle of head [any part, except face]; L02.811 Cutaneous abscess of head [any part, except face]; I96 Gangrene, not elsewhere classified; E66.01 Morbid (severe) obesity due to excess calories; Z68.41 Body mass index [BMI] 40.0-44.9, adult; E11.65 Type 2 diabetes mellitus with hyperglycemia; L02.412 Cutaneous abscess of left axilla; L03.811 Cellulitis of head [any part, except face]; I10 Essential (primary) hypertension; E78.5 Hyperlipidemia, unspecified; I25.10 Atherosclerotic heart disease of native coronary artery without angina pectoris; I70.90 Unspecified atherosclerosis; E11.40 Type 2 diabetes mellitus with diabetic neuropathy, unspecified; E78.1 Pure hyperglyceridemia; N17.9 Acute kidney failure, unspecified; Z86.718 Personal history of other venous thrombosis and embolism; Z79.4 Long term (current) use of insulin; B95.61 Methicillin susceptible Staphylococcus aureus infection as the cause of diseases classified elsewhere
CPT/HCPCS: 36415; 36430; 71045-TC-FY; 80048; 80053; 82962; 83036; 84439; 85025; 85027; 85610; 85651; 85730; 86140; 86850; 86900; 86901; 87040; 87070; 87186; 87205; 88304-TC; 93005; 93010; 94760; 99285-25; C9803; G0480; J0131; P9034; U0003

== ENCOUNTER 2021-04-01 18:35 | Inpatient (IN) | payer OTHER ==
[2021-04-01] MEDS ORDERED: CLINDAMYCIN IVPB 300 MG in DEXTROSE 5%-WATER - 48 ML IVPB ONE (21:43)
[2021-04-01 21:57] LABS: BASO % 0.8 % (0-2.0); EOS % 2.2 % (0-4.5); HEMATOCRIT 34.7 % (35.4-49); HEMOGLOBIN 11.1 GM/dL (11.7-16.9); LYMPH % 19.2 % (8-40); MCH 24.5 pg (25.7-33.7); MCHC 31.8 g/dl (32.0-35.9); MEAN CELL VOLUME 76.9 fl (80-96); MEAN PLT VOLUME 7.5 fl (7.5-11.1); MONO % 7.3 % (3.8-10.2); NEUT % 70.5 % (42.8-82.8); PLATELET COUNT 406 10^3/uL (134-434); RBC 4.52 M/mm3 (4.00-5.60); WHITE BLOOD COUNT 16.1 K/mm3 (4.0-10.0)
[2021-04-01] MEDS ORDERED: CLINDAMYCIN 600MG PREMIX IVPB 600 MG/50 ML BAG IVPB ONE (22:10)
[2021-04-01] MEDS ORDERED: VANCOMYCIN 1,000 MG in DEXTROSE 5%-WATER - 250 ML IVPB ONE (22:17)
[2021-04-01] MEDS ORDERED: VANCOMYCIN 1 GRAM (PRE-DOCKED) 1,000 MG/250 ML BAG IVPB ONE (22:30)
[2021-04-01 23:12] LABS: CALCIUM 9.2 mg/dL (8.5-10.1)
[2021-04-01 23:13] LABS: ALBUMIN 3.2 g/dl (3.4-5.0); BLOOD UREA NITROGEN 22.9 mg/dL (7-18)
[2021-04-01 23:16] LABS: CREATININE 1.5 mg/dL (0.55-1.3)
[2021-04-01 23:17] LABS: BILIRUBIN,TOTAL 0.3 mg/dL (0.2-1); TOT PROT 7.7 g/dl (6.4-8.2)
[2021-04-02 01:41] VITALS: BMI 42.5
[2021-04-02] MEDS ORDERED: CLINDAMYCIN IVPB 300 MG in DEXTROSE 5%-WATER - 48 ML IVPB SCH (02:00)
[2021-04-02] MEDS ORDERED: CLINDAMYCIN 300 MG PREMIX IVPB 300 MG/50 ML BAG IVPB SCH (02:44)
[2021-04-02] MEDS ORDERED: ACETAMINOPHEN 325 MG TABLET (FP) PO ONE (04:10)
[2021-04-02] MEDS: GABAPENTIN 300 MG CAPSULE PO SCH ×3 (06:47→21:29)
[2021-04-02] MEDS: INSULIN SLIDING SCALE (NOVOLOG) 1 VIAL SQ SCH ×4 (06:47→21:30)
[2021-04-02 09:25] LABS: BASO % 0.6 % (0-2.0); EOS % 2.7 % (0-4.5); MCHC 31.4 g/dl (32.0-35.9); MEAN CELL VOLUME 76.6 fl (80-96); MEAN PLT VOLUME 7.5 fl (7.5-11.1); MONO % 8.5 % (3.8-10.2); NEUT % 68.2 % (42.8-82.8); PLATELET COUNT 385 10^3/uL (134-434); RBC 4.18 M/mm3 (4.00-5.60); RDW 17.3 % (11.9-15.9); WHITE BLOOD COUNT 14.3 K/mm3 (4.0-10.0)
[2021-04-02] MEDS: amLODIPine BESYLATE 5 MG TABLET (FP) PO SCH (10:00)
[2021-04-02] MEDS: DOCUSATE SODIUM 100 MG CAPSULE (FP) PO SCH ×2 (10:00→21:29)
[2021-04-02] MEDS: ASPIRIN COATED 81 MG TABLET.EC PO SCH (10:00)
[2021-04-02] MEDS: POLYETHYLENE GLYCOL (HEALTHYLAX) 3350 17 GM PACKET PO SCH (10:00)
[2021-04-02] MEDS ORDERED: VANCOMYCIN 1 GM in D5W (PRE-DOCKED) 1,000 MG/250 ML IVPB SCH (10:00)
[2021-04-02] MEDS: LISINOPRIL 5 MG TABLET PO SCH (10:00)
[2021-04-02] MEDS: CLOPIDOGREL BISULFATE 75 MG TABLET (FP) PO SCH (10:00)
[2021-04-02] MEDS ORDERED: VANCOMYCIN 1 GRAM (PRE-DOCKED) 1,000 MG/250 ML BAG IVPB SCH (10:00)
[2021-04-02] MEDS ORDERED: POLYETHYLENE GLYCOL 3350 119 GM BTL PO SCH (10:00)
[2021-04-02 10:03] LABS: ALBUMIN 2.8 g/dl (3.4-5.0); BLOOD UREA NITROGEN 18.4 mg/dL (7-18)
[2021-04-02] MEDS ORDERED: PT OWN MED DRAWER 7, Y5N ONE (10:03)
[2021-04-02 10:04] LABS: CALCIUM 8.6 mg/dL (8.5-10.1)
[2021-04-02 10:07] LABS: CREATININE 1.2 mg/dL (0.55-1.3)
[2021-04-02 10:08] LABS: BILIRUBIN,TOTAL 0.3 mg/dL (0.2-1); TOT PROT 6.8 g/dl (6.4-8.2)
[2021-04-02] MEDS ORDERED: LIDOCAINE HCL 1%, 10 MG/ML (20ML VIAL) SQ ONE (10:28)
[2021-04-02] MEDS ORDERED: ACETAMINOPHEN 1000 MG/100 ML VIAL (NON FORMULARY) IVPB PRN (11:15)
[2021-04-02] MEDS ORDERED: INSULIN (NOVOLOG) ASPART 100 UNITS/ML 10ML VIAL ONE (11:45)
[2021-04-02] MEDS: LOSARTAN 50MG/HCTZ 12.5MG 1 TAB PO SCH (12:02)
[2021-04-02] MEDS ORDERED: oxyCODONE HCL 5 MG TABLET PO ONE (12:32)
[2021-04-02] MEDS ORDERED: PIPERACILLIN/TAZOBACTAM 3.375 GM VIAL IVPB ONE (16:32)
[2021-04-02] MEDS ORDERED: DEXTROSE 5%-WATER - 50 ML IVPB ONE (16:33)
[2021-04-02] MEDS: PIPERACILLIN/TAZOB 3.375 GM 3.375 GM in DEXTROSE 5%-WATER - 50 ML IVPB SCH (17:07)
[2021-04-02] MEDS ORDERED: RIVAROXABAN 10 MG TABLET PO SCH (18:00)
[2021-04-02] MEDS ORDERED: ATORVASTATIN CA 20 MG TABLET (FP) PO SCH (22:00)
[2021-04-02] MEDS: VANCOMYCIN PREMIX 1.5 GM 1,500 MG/300 ML BAG IVPB SCH (23:22)
[2021-04-03] MEDS ORDERED: DEXTROSE 5%-WATER - 50 ML IVPB ONE ×3 (02:37→17:27)
[2021-04-03] MEDS ORDERED: PIPERACILLIN/TAZOBACTAM 3.375 GM VIAL IVPB ONE ×3 (02:37→17:27)
[2021-04-03] MEDS: PIPERACILLIN/TAZOB 3.375 GM 3.375 GM in DEXTROSE 5%-WATER - 50 ML IVPB SCH ×3 (02:45→17:33)
[2021-04-03] MEDS: GABAPENTIN 300 MG CAPSULE PO SCH ×3 (06:29→21:28)
[2021-04-03] MEDS: INSULIN SLIDING SCALE (NOVOLOG) 1 VIAL SQ SCH ×4 (07:10→21:28)
[2021-04-03] MEDS: INSULIN PUMP NR SCH ×2 (07:16→09:35)
[2021-04-03] MEDS: [UNRECOGNIZED DRUG - OTHER] NR SCH ×2 (07:16→09:35)
[2021-04-03 08:05] LABS: BASO % 0.6 % (0-2.0); EOS % 3.3 % (0-4.5); HEMATOCRIT 33.1 % (35.4-49); HEMOGLOBIN 10.5 GM/dL (11.7-16.9); MCH 24.3 pg (25.7-33.7); MCHC 31.6 g/dl (32.0-35.9); MEAN CELL VOLUME 76.9 fl (80-96); MEAN PLT VOLUME 7.3 fl (7.5-11.1); MONO % 8.4 % (3.8-10.2); NEUT % 63.7 % (42.8-82.8); PLATELET COUNT 397 10^3/uL (134-434); RBC 4.31 M/mm3 (4.00-5.60); RDW 17.9 % (11.9-15.9); WHITE BLOOD COUNT 12.4 K/mm3 (4.0-10.0)
[2021-04-03 08:23] LABS: ALBUMIN 2.9 g/dl (3.4-5.0); BLOOD UREA NITROGEN 15.5 mg/dL (7-18)
[2021-04-03 08:24] LABS: CALCIUM 8.8 mg/dL (8.5-10.1)
[2021-04-03 08:25] LABS: BILIRUBIN,TOTAL 0.4 mg/dL (0.2-1)
[2021-04-03 08:26] LABS: CREATININE 1.4 mg/dL (0.55-1.3)
[2021-04-03] MEDS: POLYETHYLENE GLYCOL (HEALTHYLAX) 3350 17 GM PACKET PO SCH ×2 (09:26→10:01)
[2021-04-03] MEDS: amLODIPine BESYLATE 5 MG TABLET (FP) PO SCH (09:33)
[2021-04-03] MEDS: LOSARTAN 50MG/HCTZ 12.5MG 1 TAB PO SCH (09:33)
[2021-04-03] MEDS: DOCUSATE SODIUM 100 MG CAPSULE (FP) PO SCH ×3 (09:33→21:28)
[2021-04-03] MEDS: LISINOPRIL 5 MG TABLET PO SCH (09:34)
[2021-04-03] MEDS: CLOPIDOGREL BISULFATE 75 MG TABLET (FP) PO SCH (09:34)
[2021-04-03] MEDS: ASPIRIN COATED 81 MG TABLET.EC PO SCH (09:35)
[2021-04-03] MEDS: VANCOMYCIN PREMIX 1.5 GM 1,500 MG/300 ML BAG IVPB SCH ×2 (10:41→22:59)
[2021-04-03] MEDS ORDERED: ONDANSETRON 4 MG/2 ML VIAL ONE (15:23)
[2021-04-03] MEDS ORDERED: LIDOCAINE HCL/PF 2% SDV 5ML VIAL ONE (15:23)
[2021-04-03] MEDS ORDERED: DEXAMETHASONE SOD PHOSPHATE 4 MG/1 ML VIAL ONE (15:23)
[2021-04-03] MEDS ORDERED: PROPOFOL 20 ML ONE ×2 (15:23)
[2021-04-03] MEDS ORDERED: MIDAZOLAM HCL 2 MG/2 ML SINGLE DOSE VIAL ONE ×2 (15:23)
[2021-04-03] MEDS ORDERED: ONDANSETRON 4 MG/2 ML VIAL IVPUSH PRN ×2 (15:47→16:54)
[2021-04-03] MEDS ORDERED: LACTATED RINGERS SOLUTION 1,000 ML IV SCH (16:00)
[2021-04-03] MEDS ORDERED: LIDOCAINE 1%/EPI 1:100000 (50 ML MULTI DOSE VIAL) ONE (16:02)
[2021-04-03] MEDS ORDERED: BACITRACIN 15 GM TUBE TOPICAL OINTMENT ONE (16:28)
[2021-04-03] MEDS: LACTATED RINGERS SOLUTION 1,000 ML IV SCH ×2 (17:15→17:33)
[2021-04-03] MEDS ORDERED: RIVAROXABAN 10 MG TABLET PO SCH (18:00)
[2021-04-03] MEDS: oxyCODONE HCL 5 MG TABLET PO PRN (19:45)
[2021-04-03] MEDS: ATORVASTATIN CA 20 MG TABLET (FP) PO SCH (21:28)
[2021-04-03] MEDS: GENTAMICIN SO4 0.1% TOPICAL OINTMENT 15 GM/TUBE TUBE TP SCH (21:29)
[2021-04-04] MEDS ORDERED: PIPERACILLIN/TAZOBACTAM 3.375 GM VIAL IVPB ONE ×3 (00:40→17:27)
[2021-04-04] MEDS ORDERED: DEXTROSE 5%-WATER - 50 ML IVPB ONE ×3 (00:40→17:28)
[2021-04-04] MEDS: PIPERACILLIN/TAZOB 3.375 GM 3.375 GM in DEXTROSE 5%-WATER - 50 ML IVPB SCH ×3 (01:34→17:35)
[2021-04-04] MEDS: GABAPENTIN 300 MG CAPSULE PO SCH ×3 (05:39→21:28)
[2021-04-04] MEDS: INSULIN SLIDING SCALE (NOVOLOG) 1 VIAL SQ SCH ×4 (06:15→21:28)
[2021-04-04 08:10] LABS: BASO % 1.1 % (0-2.0); EOS % 3.1 % (0-4.5); HEMATOCRIT 34.7 % (35.4-49); HEMOGLOBIN 10.9 GM/dL (11.7-16.9); LYMPH % 25.1 % (8-40); MCH 24.2 pg (25.7-33.7); MCHC 31.4 g/dl (32.0-35.9); MEAN CELL VOLUME 77.2 fl (80-96); MEAN PLT VOLUME 7.3 fl (7.5-11.1); MONO % 7.9 % (3.8-10.2); NEUT % 62.8 % (42.8-82.8); PLATELET COUNT 388 10^3/uL (134-434); RBC 4.49 M/mm3 (4.00-5.60); RDW 17.7 % (11.9-15.9); WHITE BLOOD COUNT 10.5 K/mm3 (4.0-10.0)
[2021-04-04 08:29] LABS: ALBUMIN 2.8 g/dl (3.4-5.0); CALCIUM 8.9 mg/dL (8.5-10.1)
[2021-04-04 08:30] LABS: BLOOD UREA NITROGEN 16.6 mg/dL (7-18)
[2021-04-04 08:33] LABS: CREATININE 1.3 mg/dL (0.55-1.3)
[2021-04-04 08:34] LABS: BILIRUBIN,TOTAL 0.4 mg/dL (0.2-1)
[2021-04-04] MEDS ORDERED: INSULIN PUMP NR SCH (10:00)
[2021-04-04] MEDS ORDERED: [UNRECOGNIZED DRUG - OTHER] NR SCH (10:00)
[2021-04-04] MEDS: VANCOMYCIN PREMIX 1.5 GM 1,500 MG/300 ML BAG IVPB SCH ×2 (10:55→22:54)
[2021-04-04] MEDS: POLYETHYLENE GLYCOL (HEALTHYLAX) 3350 17 GM PACKET PO SCH (10:56)
[2021-04-04] MEDS: LOSARTAN 50MG/HCTZ 12.5MG 1 TAB PO SCH (10:56)
[2021-04-04] MEDS: amLODIPine BESYLATE 5 MG TABLET (FP) PO SCH (10:57)
[2021-04-04] MEDS: LISINOPRIL 5 MG TABLET PO SCH (10:57)
[2021-04-04] MEDS: ASPIRIN COATED 81 MG TABLET.EC PO SCH (10:58)
[2021-04-04] MEDS: CLOPIDOGREL BISULFATE 75 MG TABLET (FP) PO SCH (10:58)
[2021-04-04] MEDS: DOCUSATE SODIUM 100 MG CAPSULE (FP) PO SCH ×2 (10:58→21:28)
[2021-04-04] MEDS: GENTAMICIN SO4 0.1% TOPICAL OINTMENT 15 GM/TUBE TUBE TP SCH ×2 (11:06→21:29)
[2021-04-04] MEDS: ATORVASTATIN CA 20 MG TABLET (FP) PO SCH (21:28)
[2021-04-04] MEDS ORDERED: PT OWN MED DRAWER 7, Y5N ONE (22:47)
[2021-04-05] MEDS ORDERED: PIPERACILLIN/TAZOBACTAM 3.375 GM VIAL IVPB ONE ×3 (01:11→16:09)
[2021-04-05] MEDS ORDERED: DEXTROSE 5%-WATER - 50 ML IVPB ONE ×3 (01:11→16:09)
[2021-04-05] MEDS: oxyCODONE HCL 5 MG TABLET PO PRN (01:14)
[2021-04-05] MEDS: PIPERACILLIN/TAZOB 3.375 GM 3.375 GM in DEXTROSE 5%-WATER - 50 ML IVPB SCH ×3 (01:14→17:39)
[2021-04-05] MEDS: GABAPENTIN 300 MG CAPSULE PO SCH ×3 (06:07→21:00)
[2021-04-05] MEDS: INSULIN SLIDING SCALE (NOVOLOG) 1 VIAL SQ SCH ×4 (06:08→21:01)
[2021-04-05] MEDS ORDERED: AMINO ACIDS/PROTEIN HYDROLYS 30 ML LIQUID.PKT PO SCH (08:00)
[2021-04-05] MEDS ORDERED: INSULIN (LEVEMIR) 100 UNITS/ML UNITS SQ SCH (10:00)
[2021-04-05] MEDS: amLODIPine BESYLATE 5 MG TABLET (FP) PO SCH (10:07)
[2021-04-05] MEDS: LISINOPRIL 5 MG TABLET PO SCH (10:07)
[2021-04-05] MEDS: LOSARTAN 50MG/HCTZ 12.5MG 1 TAB PO SCH (10:08)
[2021-04-05] MEDS: POLYETHYLENE GLYCOL (HEALTHYLAX) 3350 17 GM PACKET PO SCH (10:09)
[2021-04-05] MEDS: DOCUSATE SODIUM 100 MG CAPSULE (FP) PO SCH ×2 (10:09→21:00)
[2021-04-05] MEDS: ASPIRIN COATED 81 MG TABLET.EC PO SCH (10:40)
[2021-04-05] MEDS: CLOPIDOGREL BISULFATE 75 MG TABLET (FP) PO SCH (10:40)
[2021-04-05] MEDS: GENTAMICIN SO4 0.1% TOPICAL OINTMENT 15 GM/TUBE TUBE TP SCH ×2 (10:41→21:02)
[2021-04-05] MEDS: VANCOMYCIN PREMIX 1.5 GM 1,500 MG/300 ML BAG IVPB SCH ×2 (10:41→23:44)
[2021-04-05] MEDS ORDERED: PROPOFOL 20 ML ONE (13:47)
[2021-04-05] MEDS ORDERED: MIDAZOLAM HCL 2 MG/2 ML SINGLE DOSE VIAL ONE (13:47)
[2021-04-05] MEDS ORDERED: LIDOCAINE 1%/EPI 1:100000 (20 ML MULTI DOSE VIAL) ONE (13:58)
[2021-04-05] MEDS ORDERED: LIDOCAINE HCL 1%, 10 MG/ML (20ML VIAL) SQ ONE (14:29)
[2021-04-05] MEDS ORDERED: ONDANSETRON 4 MG/2 ML VIAL IVPUSH PRN (15:27)
[2021-04-05] MEDS ORDERED: LACTATED RINGERS SOLUTION 1,000 ML IV SCH (15:27)
[2021-04-05] MEDS: RIVAROXABAN 10 MG TABLET PO SCH (17:39)
[2021-04-05] MEDS: ATORVASTATIN CA 20 MG TABLET (FP) PO SCH (21:00)
[2021-04-05] MEDS: INSULIN (LEVEMIR) 100 UNITS/ML UNITS SQ SCH (21:01)
[2021-04-05] MEDS ORDERED: PT OWN MED DRAWER 7, Y5N ONE (23:43)
[2021-04-06] MEDS ORDERED: PIPERACILLIN/TAZOBACTAM 3.375 GM VIAL IVPB ONE ×3 (01:15→17:20)
[2021-04-06] MEDS ORDERED: DEXTROSE 5%-WATER - 50 ML IVPB ONE ×4 (01:15→21:32)
[2021-04-06] MEDS: PIPERACILLIN/TAZOB 3.375 GM 3.375 GM in DEXTROSE 5%-WATER - 50 ML IVPB SCH ×3 (01:22→17:25)
[2021-04-06] MEDS: INSULIN (LEVEMIR) 100 UNITS/ML UNITS SQ SCH ×3 (06:17→22:00)
[2021-04-06] MEDS: GABAPENTIN 300 MG CAPSULE PO SCH ×3 (06:17→20:59)
[2021-04-06] MEDS: INSULIN SLIDING SCALE (NOVOLOG) 1 VIAL SQ SCH ×5 (06:18→22:00)
[2021-04-06] MEDS: AMINO ACIDS/PROTEIN HYDROLYS 30 ML LIQUID.PKT PO SCH (11:04)
[2021-04-06] MEDS: ASPIRIN COATED 81 MG TABLET.EC PO SCH (11:04)
[2021-04-06] MEDS: LISINOPRIL 5 MG TABLET PO SCH (11:05)
[2021-04-06] MEDS: CLOPIDOGREL BISULFATE 75 MG TABLET (FP) PO SCH (11:05)
[2021-04-06] MEDS: DOCUSATE SODIUM 100 MG CAPSULE (FP) PO SCH ×2 (11:05→20:59)
[2021-04-06] MEDS: LOSARTAN 50MG/HCTZ 12.5MG 1 TAB PO SCH (11:06)
[2021-04-06] MEDS: POLYETHYLENE GLYCOL (HEALTHYLAX) 3350 17 GM PACKET PO SCH (11:08)
[2021-04-06] MEDS: GENTAMICIN SO4 0.1% TOPICAL OINTMENT 15 GM/TUBE TUBE TP SCH ×2 (11:09→20:59)
[2021-04-06] MEDS ORDERED: INSULIN (NOVOLOG) ASPART 100 UNITS/ML 10ML VIAL ONE ×2 (11:52→21:33)
[2021-04-06] MEDS: amLODIPine BESYLATE 5 MG TABLET (FP) PO SCH (11:55)
[2021-04-06] MEDS ORDERED: PT OWN MED DRAWER 7, Y5N ONE ×2 (13:23→17:20)
[2021-04-06] MEDS: VANCOMYCIN PREMIX 1.5 GM 1,500 MG/300 ML BAG IVPB SCH ×2 (13:29→23:30)
[2021-04-06] MEDS: RIVAROXABAN 10 MG TABLET PO SCH (17:29)
[2021-04-06] MEDS: ATORVASTATIN CA 20 MG TABLET (FP) PO SCH (20:59)
[2021-04-06] MEDS ORDERED: cefTRIAXone SODIUM 1 GM VIAL ONE (21:31)
[2021-04-06] MEDS: CEFTRIAXONE 1 GM in DEXTROSE 5%-WATER - 50 ML IVPB SCH (22:01)
[2021-04-07] MEDS: INSULIN SLIDING SCALE (NOVOLOG) 1 VIAL SQ SCH ×4 (06:16→21:00)
[2021-04-07] MEDS: INSULIN (LEVEMIR) 100 UNITS/ML UNITS SQ SCH ×2 (06:17→20:59)
[2021-04-07] MEDS: GABAPENTIN 300 MG CAPSULE PO SCH ×3 (06:18→21:03)
[2021-04-07] MEDS ORDERED: INSULIN (NOVOLOG) ASPART 100 UNITS/ML 10ML VIAL ONE ×3 (06:42→20:25)
[2021-04-07] MEDS ORDERED: cefTRIAXone SODIUM 1 GM VIAL ONE (08:22)
[2021-04-07] MEDS ORDERED: DEXTROSE 5%-WATER - 50 ML IVPB ONE (08:22)
[2021-04-07] MEDS ORDERED: PT OWN MED DRAWER 7, Y5N ONE ×3 (08:22→16:39)
[2021-04-07] MEDS: POLYETHYLENE GLYCOL (HEALTHYLAX) 3350 17 GM PACKET PO SCH (09:02)
[2021-04-07] MEDS: AMINO ACIDS/PROTEIN HYDROLYS 30 ML LIQUID.PKT PO SCH (09:03)
[2021-04-07] MEDS: ASPIRIN COATED 81 MG TABLET.EC PO SCH (09:03)
[2021-04-07] MEDS: amLODIPine BESYLATE 5 MG TABLET (FP) PO SCH (09:07)
[2021-04-07] MEDS: DOCUSATE SODIUM 100 MG CAPSULE (FP) PO SCH ×2 (09:07→21:03)
[2021-04-07] MEDS: LISINOPRIL 5 MG TABLET PO SCH (09:07)
[2021-04-07] MEDS: CEFTRIAXONE 1 GM in DEXTROSE 5%-WATER - 50 ML IVPB SCH (09:07)
[2021-04-07] MEDS: CLOPIDOGREL BISULFATE 75 MG TABLET (FP) PO SCH (09:07)
[2021-04-07] MEDS: GENTAMICIN SO4 0.1% TOPICAL OINTMENT 15 GM/TUBE TUBE TP SCH ×2 (09:08→21:03)
[2021-04-07] MEDS: oxyCODONE HCL 5 MG TABLET PO PRN ×2 (09:26→16:03)
[2021-04-07] MEDS: LOSARTAN 50MG/HCTZ 12.5MG 1 TAB PO SCH (09:26)
[2021-04-07] MEDS: VANCOMYCIN PREMIX 1.5 GM 1,500 MG/300 ML BAG IVPB SCH (12:17)
[2021-04-07 15:35] LABS: BASO % 0.5 % (0-2.0); EOS % 3.9 % (0-4.5); HEMATOCRIT 32.9 % (35.4-49); HEMOGLOBIN 10.3 GM/dL (11.7-16.9); LYMPH % 21.7 % (8-40); MCH 24.2 pg (25.7-33.7); MCHC 31.4 g/dl (32.0-35.9); MEAN PLT VOLUME 7.2 fl (7.5-11.1); MONO % 4.5 % (3.8-10.2); NEUT % 69.4 % (42.8-82.8); PLATELET COUNT 352 10^3/uL (134-434); RBC 4.27 M/mm3 (4.00-5.60); RDW 17.5 % (11.9-15.9)
[2021-04-07 16:01] LABS: ALBUMIN 2.7 g/dl (3.4-5.0); BLOOD UREA NITROGEN 23.6 mg/dL (7-18); CALCIUM 8.3 mg/dL (8.5-10.1)
[2021-04-07 16:04] LABS: CREATININE 1.6 mg/dL (0.55-1.3)
[2021-04-07 16:06] LABS: BILIRUBIN,TOTAL 0.2 mg/dL (0.2-1); TOT PROT 6.8 g/dl (6.4-8.2)
[2021-04-07] MEDS: RIVAROXABAN 10 MG TABLET PO SCH (17:03)
[2021-04-07] MEDS: ATORVASTATIN CA 20 MG TABLET (FP) PO SCH (21:03)
[2021-04-08] MEDS: INSULIN SLIDING SCALE (NOVOLOG) 1 VIAL SQ SCH ×4 (05:59→21:06)
[2021-04-08] MEDS: GABAPENTIN 300 MG CAPSULE PO SCH ×3 (05:59→21:06)
[2021-04-08] MEDS: INSULIN (LEVEMIR) 100 UNITS/ML UNITS SQ SCH ×2 (06:00→21:06)
[2021-04-08] MEDS: INSULIN (NOVOLOG MIX 70/30) 100 UNITS/ML MDV SQ SCH ×2 (06:01→16:55)
[2021-04-08 07:58] LABS: BASO % 0.5 % (0-2.0); EOS % 3.8 % (0-4.5); HEMATOCRIT 34.6 % (35.4-49); LYMPH % 25.7 % (8-40); MCH 24.2 pg (25.7-33.7); MCHC 31.8 g/dl (32.0-35.9); MEAN CELL VOLUME 76.2 fl (80-96); MEAN PLT VOLUME 7.2 fl (7.5-11.1); MONO % 3.9 % (3.8-10.2); NEUT % 66.1 % (42.8-82.8); PLATELET COUNT 359 10^3/uL (134-434); RBC 4.54 M/mm3 (4.00-5.60); RDW 17.4 % (11.9-15.9); WHITE BLOOD COUNT 12.1 K/mm3 (4.0-10.0)
[2021-04-08 08:25] LABS: CALCIUM 8.8 mg/dL (8.5-10.1)
[2021-04-08 08:29] LABS: CREATININE 1.4 mg/dL (0.55-1.3)
[2021-04-08 08:30] LABS: BILIRUBIN,TOTAL 0.3 mg/dL (0.2-1)
[2021-04-08] MEDS ORDERED: DEXTROSE 5%-WATER - 50 ML IVPB ONE (08:41)
[2021-04-08] MEDS ORDERED: cefTRIAXone SODIUM 1 GM VIAL ONE (08:41)
[2021-04-08] MEDS: AMINO ACIDS/PROTEIN HYDROLYS 30 ML LIQUID.PKT PO SCH (08:53)
[2021-04-08] MEDS: DOCUSATE SODIUM 100 MG CAPSULE (FP) PO SCH ×2 (09:00→21:06)
[2021-04-08] MEDS: DOXYCYCLINE HYCLATE 100 MG CAPSULE PO SCH ×2 (09:00→17:01)
[2021-04-08] MEDS: POLYETHYLENE GLYCOL (HEALTHYLAX) 3350 17 GM PACKET PO SCH (09:00)
[2021-04-08] MEDS: amLODIPine BESYLATE 5 MG TABLET (FP) PO SCH (09:01)
[2021-04-08] MEDS: LISINOPRIL 5 MG TABLET PO SCH (09:01)
[2021-04-08] MEDS: ASPIRIN COATED 81 MG TABLET.EC PO SCH (09:01)
[2021-04-08] MEDS: CLOPIDOGREL BISULFATE 75 MG TABLET (FP) PO SCH (09:01)
[2021-04-08] MEDS: CEFTRIAXONE 1 GM in DEXTROSE 5%-WATER - 50 ML IVPB SCH (09:01)
[2021-04-08] MEDS: GENTAMICIN SO4 0.1% TOPICAL OINTMENT 15 GM/TUBE TUBE TP SCH ×2 (09:12→21:06)
[2021-04-08] MEDS ORDERED: PT OWN MED DRAWER 7, Y5N ONE ×3 (09:20→17:07)
[2021-04-08] MEDS: LOSARTAN 50MG/HCTZ 12.5MG 1 TAB PO SCH (09:22)
[2021-04-08] MEDS ORDERED: INSULIN (NOVOLOG) ASPART 100 UNITS/ML 10ML VIAL ONE ×2 (11:37→16:27)
[2021-04-08] MEDS: RIVAROXABAN 10 MG TABLET PO SCH (17:09)
[2021-04-08] MEDS: ACETAMINOPHEN 325 MG TABLET (FP) PO PRN (18:01)
[2021-04-08] MEDS: ATORVASTATIN CA 20 MG TABLET (FP) PO SCH (21:06)
[2021-04-09] MEDS: INSULIN (LEVEMIR) 100 UNITS/ML UNITS SQ SCH ×2 (06:22→21:48)
[2021-04-09] MEDS: INSULIN (NOVOLOG MIX 70/30) 100 UNITS/ML MDV SQ SCH ×2 (06:22→18:06)
[2021-04-09] MEDS: INSULIN SLIDING SCALE (NOVOLOG) 1 VIAL SQ SCH ×4 (06:22→21:48)
[2021-04-09] MEDS: GABAPENTIN 300 MG CAPSULE PO SCH ×3 (06:22→21:48)
[2021-04-09] MEDS ORDERED: cefTRIAXone SODIUM 1 GM VIAL ONE (09:01)
[2021-04-09] MEDS ORDERED: DEXTROSE 5%-WATER - 50 ML IVPB ONE (09:02)
[2021-04-09 09:16] LABS: EOS % 3.6 % (0-4.5); HEMOGLOBIN 10.5 GM/dL (11.7-16.9); LYMPH % 23.3 % (8-40); MCH 24.3 pg (25.7-33.7); MCHC 31.9 g/dl (32.0-35.9); MEAN CELL VOLUME 76.4 fl (80-96); MEAN PLT VOLUME 7.2 fl (7.5-11.1); MONO % 4.3 % (3.8-10.2); NEUT % 67.8 % (42.8-82.8); PLATELET COUNT 311 10^3/uL (134-434); RBC 4.32 M/mm3 (4.00-5.60); RDW 17.5 % (11.9-15.9); WHITE BLOOD COUNT 10.2 K/mm3 (4.0-10.0)
[2021-04-09] MEDS: CEFTRIAXONE 1 GM in DEXTROSE 5%-WATER - 50 ML IVPB SCH (09:30)
[2021-04-09] MEDS: amLODIPine BESYLATE 5 MG TABLET (FP) PO SCH (09:31)
[2021-04-09] MEDS: DOXYCYCLINE HYCLATE 100 MG CAPSULE PO SCH ×2 (09:31→17:06)
[2021-04-09] MEDS: AMINO ACIDS/PROTEIN HYDROLYS 30 ML LIQUID.PKT PO SCH (09:31)
[2021-04-09] MEDS: DOCUSATE SODIUM 100 MG CAPSULE (FP) PO SCH ×2 (09:31→21:48)
[2021-04-09] MEDS: ASPIRIN COATED 81 MG TABLET.EC PO SCH (09:31)
[2021-04-09] MEDS: CLOPIDOGREL BISULFATE 75 MG TABLET (FP) PO SCH (09:31)
[2021-04-09] MEDS: GENTAMICIN SO4 0.1% TOPICAL OINTMENT 15 GM/TUBE TUBE TP SCH ×2 (09:32→21:54)
[2021-04-09] MEDS: POLYETHYLENE GLYCOL (HEALTHYLAX) 3350 17 GM PACKET PO SCH (09:32)
[2021-04-09] MEDS: ACETAMINOPHEN 325 MG TABLET (FP) PO PRN (09:42)
[2021-04-09] MEDS: oxyCODONE HCL 5 MG TABLET PO PRN (09:42)
[2021-04-09 09:59] LABS: ALBUMIN 2.8 g/dl (3.4-5.0)
[2021-04-09 10:03] LABS: CALCIUM 8.6 mg/dL (8.5-10.1)
[2021-04-09 10:04] LABS: BLOOD UREA NITROGEN 25.7 mg/dL (7-18); CREATININE 1.4 mg/dL (0.55-1.3)
[2021-04-09 10:06] LABS: BILIRUBIN,TOTAL 0.2 mg/dL (0.2-1); TOT PROT 6.6 g/dl (6.4-8.2)
[2021-04-09] MEDS: RIVAROXABAN 10 MG TABLET PO SCH (17:06)
[2021-04-09] MEDS ORDERED: INSULIN (NOVOLOG MIX 70/30) 100 UNITS/ML MDV SQ ONE (18:04)
[2021-04-09 21:33] LABS: URINE APPEARANCE CLEAR; URINE BILIRUBIN NEGATIVE (NEGATIVE); URINE COLOR YELLOW; URINE GLUCOSE (UA) 2+ (NEGATIVE); URINE KETONE NEGATIVE (NEGATIVE); URINE LEUK ESTERASE NEGATIVE (NEGATIVE); URINE NITRITE NEGATIVE (NEGATIVE); URINE PROTEIN NEGATIVE (NEGATIVE); URINE UROBILINOGEN 0.2 mg/dL (0.2-1.0)
[2021-04-09] MEDS: ATORVASTATIN CA 20 MG TABLET (FP) PO SCH (21:48)
[2021-04-10] MEDS: GABAPENTIN 300 MG CAPSULE PO SCH ×2 (06:58→15:14)
[2021-04-10] MEDS: INSULIN SLIDING SCALE (NOVOLOG) 1 VIAL SQ SCH ×2 (07:01→12:32)
[2021-04-10] MEDS: INSULIN (NOVOLOG MIX 70/30) 100 UNITS/ML MDV SQ SCH (07:01)
[2021-04-10] MEDS: INSULIN (LEVEMIR) 100 UNITS/ML UNITS SQ SCH (07:01)
[2021-04-10] MEDS ORDERED: DEXTROSE 5%-WATER - 50 ML IVPB ONE (10:02)
[2021-04-10] MEDS ORDERED: cefTRIAXone SODIUM 1 GM VIAL ONE (10:02)
[2021-04-10] MEDS: CEFTRIAXONE 1 GM in DEXTROSE 5%-WATER - 50 ML IVPB SCH (10:25)
[2021-04-10] MEDS: POLYETHYLENE GLYCOL (HEALTHYLAX) 3350 17 GM PACKET PO SCH (10:25)
[2021-04-10] MEDS: AMINO ACIDS/PROTEIN HYDROLYS 30 ML LIQUID.PKT PO SCH (10:25)
[2021-04-10] MEDS: ACETAMINOPHEN 325 MG TABLET (FP) PO PRN (10:26)
[2021-04-10] MEDS: oxyCODONE HCL 5 MG TABLET PO PRN (10:26)
[2021-04-10] MEDS: CLOPIDOGREL BISULFATE 75 MG TABLET (FP) PO SCH (10:27)
[2021-04-10] MEDS: amLODIPine BESYLATE 5 MG TABLET (FP) PO SCH (10:27)
[2021-04-10] MEDS: ASPIRIN COATED 81 MG TABLET.EC PO SCH (10:27)
[2021-04-10] MEDS: DOXYCYCLINE HYCLATE 100 MG CAPSULE PO SCH (10:27)
[2021-04-10] MEDS: DOCUSATE SODIUM 100 MG CAPSULE (FP) PO SCH (10:28)
[2021-04-10] MEDS: GENTAMICIN SO4 0.1% TOPICAL OINTMENT 15 GM/TUBE TUBE TP SCH (10:28)
[2021-04-10 14:26] VITALS: BP 128/65; PULSE 94; TEMP 98.7
== END 2021-04-10 16:34 | disposition home health service (06) | DRG 711 ==
LOC: JER 18:35 → JERBED 22:17 → J5S 04-02 01:04 → J7W 04-02 02:17
PROVIDERS: ADMIT Internal Medicine; ATTEND Internal Medicine
PROC: 0JDM0ZZ Extraction of Left Upper Leg Subcutaneous Tissue and Fascia, Open Approach (ICD-10-PCS; 2021-04-02)
PROC: 3E10X8Z Irrigation of Skin and Mucous Membranes using Irrigating Substance (ICD-10-PCS; 2021-04-02)
PROC: 0J900ZZ Drainage of Scalp Subcutaneous Tissue and Fascia, Open Approach (ICD-10-PCS; 2021-04-02)
PROC: 2W1PX6Z Compression of Left Upper Leg using Pressure Dressing (ICD-10-PCS; 2021-04-03)
PROC: 0J9M0ZX Drainage of Left Upper Leg Subcutaneous Tissue and Fascia, Open Approach, Diagnostic (ICD-10-PCS; principal; 2021-04-03 16:00)
PROC: 2W1PX6Z Compression of Left Upper Leg using Pressure Dressing (ICD-10-PCS; 2021-04-05)
DX: T81.41XA Infection following a procedure, superficial incisional surgical site, initial encounter (principal); L02.91 Cutaneous abscess, unspecified; L02.811 Cutaneous abscess of head [any part, except face]; E78.5 Hyperlipidemia, unspecified; I10 Essential (primary) hypertension; E11.51 Type 2 diabetes mellitus with diabetic peripheral angiopathy without gangrene; E66.01 Morbid (severe) obesity due to excess calories; Z68.41 Body mass index [BMI] 40.0-44.9, adult; B96.4 Proteus (mirabilis) (morganii) as the cause of diseases classified elsewhere; B95.61 Methicillin susceptible Staphylococcus aureus infection as the cause of diseases classified elsewhere; Y83.9 Surgical procedure, unspecified as the cause of abnormal reaction of the patient, or of later complication, without mention of misadventure at the time of the procedure; N17.9 Acute kidney failure, unspecified; L08.9 Local infection of the skin and subcutaneous tissue, unspecified; Z95.828 Presence of other vascular implants and grafts; Z87.891 Personal history of nicotine dependence
CPT/HCPCS: 36415; 71046-TC-FY; 76882-TC-RT-FY; 80048; 80053; 81003; 82570; 82962; 83036; 84156; 85025; 87040; 87070; 87186; 87205; 93005; 93010; 94760; 99285-25; C9803; G0480; J0131; U0003; U0005

== ENCOUNTER 2021-08-11 08:52 | Inpatient (IN) | payer OTHER ==
[2021-08-11 12:47] LABS: HEMOGLOBIN 11.2 GM/dL (11.7-16.9); MCH 23.8 pg (25.7-33.7); MCHC 32.1 g/dl (32.0-35.9); MEAN CELL VOLUME 74.1 fl (80-96); MEAN PLT VOLUME 7.8 fl (7.5-11.1); PLATELET COUNT 352 10^3/uL (134-434); RBC 4.72 M/mm3 (4.00-5.60); RDW 17.5 % (11.9-15.9); WHITE BLOOD COUNT 28.4 K/mm3 (4.0-10.0)
[2021-08-11 12:48] LABS: ADD RBC MORPHOLOGY YES
[2021-08-11 12:49] LABS: INR 1.53 (0.83-1.09); PROTHROMBIN TIME (PATIENT) 17.2 SEC (9.7-13.0)
[2021-08-11 12:52] LABS: ACTIVATED PTT 22.1 SECONDS (25.2-36.5)
[2021-08-11 12:58] LABS: CALCIUM 8.6 mg/dL (8.5-10.1)
[2021-08-11 12:59] LABS: ALBUMIN 2.4 g/dl (3.4-5.0)
[2021-08-11 13:02] LABS: CREATININE 1.3 mg/dL (0.55-1.3)
[2021-08-11 13:04] LABS: BILIRUBIN,TOTAL 0.6 mg/dL (0.2-1); TOT PROT 6.7 g/dl (6.4-8.2)
[2021-08-11 13:05] LABS: ANISOCYTOSIS 2+; MACROCYTOSIS 0; OVALOCYTE 1+; PLATELET ESTIMATE NORMAL; TEAR DROP CELLS 1+
[2021-08-11] MEDS ORDERED: VANCOMYCIN 1 GM in D5W (PRE-DOCKED) 1,000 MG/250 ML IVPB ONE (13:51)
[2021-08-11] MEDS ORDERED: PIPERACILLIN/TAZOB 4.5 GM 4.5 GM in DEXTROSE 5%-WATER 100 ML IVPB ONE (13:51)
[2021-08-11] MEDS ORDERED: PIPERACILLIN/TAZOB 4.5 GM 4.5 GM/100 ML BAG IVPB ONE (14:10)
[2021-08-11] MEDS ORDERED: VANCOMYCIN 1 GRAM (PRE-DOCKED) 1,000 MG/250 ML BAG IVPB ONE (15:41)
[2021-08-11] MEDS ORDERED: ACETAMINOPHEN 1000 MG/100 ML VIAL IVPB ONE (16:10)
[2021-08-11] MEDS ORDERED: ACETAMINOPHEN INJECTION 100 ML IVPB ONE (16:18)
[2021-08-11] MEDS: DOCUSATE SODIUM 100 MG CAPSULE (FP) PO SCH (23:37)
[2021-08-11] MEDS: ACETAMINOPHEN 325 MG TABLET (FP) PO PRN (23:38)
[2021-08-11] MEDS: GABAPENTIN 300 MG CAPSULE PO SCH (23:38)
[2021-08-11] MEDS: ATORVASTATIN CA 20 MG TABLET (FP) PO SCH (23:38)
[2021-08-11] MEDS: VANCOMYCIN 1 GRAM (PRE-DOCKED) 1 GM/200 ML BAG IVPB SCH (23:42)
[2021-08-12] MEDS: INSULIN (LEVEMIR) 100 UNITS/ML UNITS SQ SCH ×3 (00:03→21:17)
[2021-08-12] MEDS: INSULIN SLIDING SCALE (NOVOLOG) 1 VIAL SQ SCH ×5 (00:04→21:16)
[2021-08-12] MEDS ORDERED: PIPERACILLIN/TAZOBACTAM 3.375 GM VIAL IVPB ONE ×4 (01:24→23:13)
[2021-08-12] MEDS ORDERED: DEXTROSE 5%-WATER - 50 ML IVPB ONE ×4 (01:24→23:13)
[2021-08-12] MEDS: PIPERACILLIN/TAZOB 3.375 GM 3.375 GM in DEXTROSE 5%-WATER - 50 ML IVPB SCH ×4 (01:48→19:59)
[2021-08-12] MEDS: GABAPENTIN 300 MG CAPSULE PO SCH ×3 (06:59→21:12)
[2021-08-12] MEDS: LISINOPRIL 5 MG TABLET PO SCH (09:08)
[2021-08-12] MEDS: DOCUSATE SODIUM 100 MG CAPSULE (FP) PO SCH ×2 (09:09→21:12)
[2021-08-12] MEDS: ASPIRIN 81 MG CHEWABLE TABLETS PO SCH (09:09)
[2021-08-12] MEDS: POLYETHYLENE GLYCOL (HEALTHYLAX) 3350 17 GM PACKET PO SCH (09:09)
[2021-08-12] MEDS: CLOPIDOGREL BISULFATE 75 MG TABLET (FP) PO SCH (09:09)
[2021-08-12] MEDS: amLODIPine BESYLATE 5 MG TABLET (FP) PO SCH (09:10)
[2021-08-12] MEDS ORDERED: PT OWN MED DRAWER 7, Y5N ONE ×3 (09:13→20:07)
[2021-08-12 09:47] LABS: BASO % 0.2 % (0-2.0); HEMATOCRIT 32.9 % (35.4-49); HEMOGLOBIN 10.5 GM/dL (11.7-16.9); LYMPH % 8.2 % (8-40); MCH 23.8 pg (25.7-33.7); MCHC 31.8 g/dl (32.0-35.9); MEAN CELL VOLUME 74.8 fl (80-96); MEAN PLT VOLUME 7.5 fl (7.5-11.1); MONO % 8.1 % (3.8-10.2); NEUT % 81.5 % (42.8-82.8); PLATELET COUNT 318 10^3/uL (134-434); RDW 17.8 % (11.9-15.9); WHITE BLOOD COUNT 18.7 K/mm3 (4.0-10.0)
[2021-08-12 10:12] LABS: CHLORIDE 93 mmol/L (98-107); SODIUM 129 mmol/L (136-145)
[2021-08-12 10:15] LABS: ANION GAP 10 MMOL/L (8-16); CALCIUM 8.1 mg/dL (8.5-10.1); CO2 26 mmol/L (21-32)
[2021-08-12 10:16] LABS: BLOOD UREA NITROGEN 20.8 mg/dL (7-18)
[2021-08-12 10:18] LABS: CREATININE 1.5 mg/dL (0.55-1.3)
[2021-08-12 10:19] LABS: BILIRUBIN,TOTAL 0.5 mg/dL (0.2-1); SGOT/AST 32 U/L (15-37); SGPT/ALT 50 U/L (13-61); TOT PROT 5.9 g/dl (6.4-8.2)
[2021-08-12 10:21] LABS: ALK PHOS 254 U/L (45-117)
[2021-08-12 10:30] LABS: GLUCOSE,RANDOM 412 mg/dL (74-106)
[2021-08-12] MEDS: VANCOMYCIN 1 GRAM (PRE-DOCKED) 1 GM/200 ML BAG IVPB SCH ×2 (11:06→19:59)
[2021-08-12] MEDS: LOSARTAN 50MG/HCTZ 12.5MG 1 TAB PO SCH (11:06)
[2021-08-12] MEDS: DOXYCYCLINE HYCLATE 100 MG CAPSULE PO SCH (17:23)
[2021-08-12] MEDS: RIVAROXABAN 10 MG TABLET PO SCH (17:23)
[2021-08-12] MEDS: morphine SULFATE 4 MG/ML VIAL IVPUSH PRN (21:08)
[2021-08-12] MEDS: ATORVASTATIN CA 20 MG TABLET (FP) PO SCH (21:12)
[2021-08-13] MEDS: PIPERACILLIN/TAZOB 3.375 GM 3.375 GM in DEXTROSE 5%-WATER - 50 ML IVPB SCH ×3 (01:15→18:04)
[2021-08-13] MEDS: INSULIN (LEVEMIR) 100 UNITS/ML UNITS SQ SCH ×2 (06:24→21:02)
[2021-08-13] MEDS: GABAPENTIN 300 MG CAPSULE PO SCH ×3 (06:24→21:01)
[2021-08-13] MEDS: INSULIN SLIDING SCALE (NOVOLOG) 1 VIAL SQ SCH ×4 (06:25→21:02)
[2021-08-13 09:01] LABS: HEMATOCRIT 33.2 % (35.4-49); HEMOGLOBIN 10.6 GM/dL (11.7-16.9); MCH 23.9 pg (25.7-33.7); MCHC 31.9 g/dl (32.0-35.9); MEAN CELL VOLUME 74.8 fl (80-96); MEAN PLT VOLUME 7.7 fl (7.5-11.1); PLATELET COUNT 325 10^3/uL (134-434); RBC 4.44 M/mm3 (4.00-5.60); RDW 17.4 % (11.9-15.9); WHITE BLOOD COUNT 22.2 K/mm3 (4.0-10.0)
[2021-08-13 10:24] LABS: BILIRUBIN,TOTAL 0.5 mg/dL (0.2-1); BLOOD UREA NITROGEN 21.3 mg/dL (7-18); CALCIUM 8.1 mg/dL (8.5-10.1); CREATININE 1.6 mg/dL (0.55-1.3)
[2021-08-13] MEDS ORDERED: DEXTROSE 5%-WATER - 50 ML IVPB ONE ×2 (10:35→17:59)
[2021-08-13] MEDS ORDERED: PIPERACILLIN/TAZOBACTAM 3.375 GM VIAL IVPB ONE ×2 (10:35→17:59)
[2021-08-13] MEDS ORDERED: PT OWN MED DRAWER 7, Y5N ONE ×2 (10:35→17:59)
[2021-08-13] MEDS: ASPIRIN 81 MG CHEWABLE TABLETS PO SCH (10:42)
[2021-08-13] MEDS: DOXYCYCLINE HYCLATE 100 MG CAPSULE PO SCH ×2 (10:42→18:04)
[2021-08-13] MEDS: CLOPIDOGREL BISULFATE 75 MG TABLET (FP) PO SCH (10:42)
[2021-08-13] MEDS: amLODIPine BESYLATE 5 MG TABLET (FP) PO SCH (10:42)
[2021-08-13] MEDS: DOCUSATE SODIUM 100 MG CAPSULE (FP) PO SCH ×2 (10:42→21:01)
[2021-08-13] MEDS: LOSARTAN 50MG/HCTZ 12.5MG 1 TAB PO SCH (10:43)
[2021-08-13] MEDS: POLYETHYLENE GLYCOL (HEALTHYLAX) 3350 17 GM PACKET PO SCH (10:43)
[2021-08-13] MEDS: LISINOPRIL 5 MG TABLET PO SCH (10:43)
[2021-08-13] MEDS: morphine SULFATE 4 MG/ML VIAL IVPUSH PRN (14:29)
[2021-08-13 16:43] VITALS: BMI 43.7
[2021-08-13] MEDS: RIVAROXABAN 10 MG TABLET PO SCH (18:05)
[2021-08-13] MEDS: ACETAMINOPHEN 325 MG TABLET (FP) PO PRN (20:16)
[2021-08-13] MEDS: ATORVASTATIN CA 20 MG TABLET (FP) PO SCH (21:01)
[2021-08-14] MEDS ORDERED: DEXTROSE 5%-WATER - 50 ML IVPB ONE ×2 (00:18→17:03)
[2021-08-14] MEDS ORDERED: PIPERACILLIN/TAZOBACTAM 3.375 GM VIAL IVPB ONE ×2 (00:18→17:03)
[2021-08-14] MEDS: morphine SULFATE 4 MG/ML VIAL IVPUSH PRN (00:30)
[2021-08-14] MEDS: PIPERACILLIN/TAZOB 3.375 GM 3.375 GM in DEXTROSE 5%-WATER - 50 ML IVPB SCH ×3 (01:46→17:12)
[2021-08-14] MEDS: GABAPENTIN 300 MG CAPSULE PO SCH ×3 (05:49→21:47)
[2021-08-14] MEDS: INSULIN SLIDING SCALE (NOVOLOG) 1 VIAL SQ SCH ×4 (06:20→21:50)
[2021-08-14] MEDS: INSULIN (LEVEMIR) 100 UNITS/ML UNITS SQ SCH (06:21)
[2021-08-14 08:25] LABS: HEMATOCRIT 32.5 % (35.4-49); HEMOGLOBIN 10.6 GM/dL (11.7-16.9); MCH 24.2 pg (25.7-33.7); MCHC 32.6 g/dl (32.0-35.9); MEAN CELL VOLUME 74.3 fl (80-96); MEAN PLT VOLUME 7.6 fl (7.5-11.1); PLATELET COUNT 346 10^3/uL (134-434); RBC 4.38 M/mm3 (4.00-5.60); RDW 17.6 % (11.9-15.9); WHITE BLOOD COUNT 20.7 K/mm3 (4.0-10.0)
[2021-08-14 09:37] LABS: ANISOCYTOSIS 2+; MACROCYTOSIS 0; PLATELET ESTIMATE NORMAL
[2021-08-14] MEDS ORDERED: MIDAZOLAM HCL 2 MG/2 ML SINGLE DOSE VIAL ONE (09:42)
[2021-08-14] MEDS ORDERED: ACETAMINOPHEN INJECTION 100 ML IVPB ONE (09:46)
[2021-08-14] MEDS ORDERED: KETAMINE HCL 200 MG/20 ML VIAL ONE (09:49)
[2021-08-14] MEDS ORDERED: BUPIVACAINE HCL/PF 0.5% (5MG/ML) 10 ML VIAL ONE (10:03)
[2021-08-14] MEDS ORDERED: LIDOCAINE HCL 1%, 10 MG/ML (20ML VIAL) ONE (10:03)
[2021-08-14] MEDS: POLYETHYLENE GLYCOL (HEALTHYLAX) 3350 17 GM PACKET PO SCH (10:35)
[2021-08-14] MEDS: ASPIRIN 81 MG CHEWABLE TABLETS PO SCH (10:35)
[2021-08-14] MEDS: amLODIPine BESYLATE 5 MG TABLET (FP) PO SCH (10:35)
[2021-08-14] MEDS: CLOPIDOGREL BISULFATE 75 MG TABLET (FP) PO SCH (10:35)
[2021-08-14] MEDS: DOCUSATE SODIUM 100 MG CAPSULE (FP) PO SCH ×2 (10:35→21:47)
[2021-08-14] MEDS: LOSARTAN 50MG/HCTZ 12.5MG 1 TAB PO SCH (10:36)
[2021-08-14] MEDS: LISINOPRIL 5 MG TABLET PO SCH (10:36)
[2021-08-14 12:29] LABS: ALBUMIN 1.9 g/dl (3.4-5.0); BILIRUBIN,TOTAL 0.4 mg/dL (0.2-1); BLOOD UREA NITROGEN 24.1 mg/dL (7-18); CALCIUM 8.4 mg/dL (8.5-10.1); CREATININE 1.6 mg/dL (0.55-1.3)
[2021-08-14] MEDS: DOXYCYCLINE HYCLATE 100 MG CAPSULE PO SCH ×2 (13:55→17:13)
[2021-08-14] MEDS: LACTATED RINGERS SOLUTION 1,000 ML IV SCH (14:12)
[2021-08-14] MEDS: RIVAROXABAN 10 MG TABLET PO SCH (17:12)
[2021-08-14] MEDS: ATORVASTATIN CA 20 MG TABLET (FP) PO SCH (21:47)
[2021-08-14] MEDS ORDERED: INSULIN (LEVEMIR) 100 UNITS/ML UNITS SQ SCH (22:00)
[2021-08-15] MEDS ORDERED: PIPERACILLIN/TAZOBACTAM 3.375 GM VIAL IVPB ONE ×3 (01:24→17:20)
[2021-08-15] MEDS ORDERED: DEXTROSE 5%-WATER - 50 ML IVPB ONE ×3 (01:25→17:20)
[2021-08-15] MEDS: PIPERACILLIN/TAZOB 3.375 GM 3.375 GM in DEXTROSE 5%-WATER - 50 ML IVPB SCH ×3 (01:42→17:30)
[2021-08-15] MEDS: ACETAMINOPHEN 325 MG TABLET (FP) PO PRN (01:43)
[2021-08-15] MEDS: [UNRECOGNIZED DRUG - OTHER] MC SCH ×2 (02:20→13:08)
[2021-08-15] MEDS: INSULIN PUMP MC SCH ×2 (02:20→13:08)
[2021-08-15] MEDS: LACTATED RINGERS SOLUTION 1,000 ML IV SCH ×2 (02:23→12:10)
[2021-08-15] MEDS ORDERED: morphine SULFATE 4 MG/ML VIAL IVPUSH ONE (02:58)
[2021-08-15] MEDS: INSULIN SLIDING SCALE (NOVOLOG) 1 VIAL SQ SCH ×4 (06:33→22:09)
[2021-08-15] MEDS: GABAPENTIN 300 MG CAPSULE PO SCH ×3 (06:35→22:08)
[2021-08-15] MEDS: INSULIN (NOVOLOG MIX 70/30) 100 UNITS/ML MDV SQ SCH ×2 (06:36→18:04)
[2021-08-15] MEDS: INSULIN (LEVEMIR) 100 UNITS/ML UNITS SQ SCH ×3 (06:36→22:08)
[2021-08-15] MEDS ORDERED: PT OWN MED DRAWER 7, Y5N ONE ×2 (09:18→17:20)
[2021-08-15] MEDS: amLODIPine BESYLATE 5 MG TABLET (FP) PO SCH (09:31)
[2021-08-15] MEDS: CLOPIDOGREL BISULFATE 75 MG TABLET (FP) PO SCH (09:31)
[2021-08-15] MEDS: DOCUSATE SODIUM 100 MG CAPSULE (FP) PO SCH ×2 (09:31→22:08)
[2021-08-15] MEDS: DOXYCYCLINE HYCLATE 100 MG CAPSULE PO SCH ×2 (09:31→17:30)
[2021-08-15] MEDS: LOSARTAN 50MG/HCTZ 12.5MG 1 TAB PO SCH (09:31)
[2021-08-15] MEDS: POLYETHYLENE GLYCOL (HEALTHYLAX) 3350 17 GM PACKET PO SCH (09:31)
[2021-08-15] MEDS: LISINOPRIL 5 MG TABLET PO SCH (09:32)
[2021-08-15] MEDS: ASPIRIN 81 MG CHEWABLE TABLETS PO SCH (09:32)
[2021-08-15] MEDS ORDERED: [UNRECOGNIZED DRUG - OTHER] MC SCH (10:00)
[2021-08-15] MEDS ORDERED: INSULIN PUMP MC SCH (10:00)
[2021-08-15 10:13] LABS: BASO % 0.6 % (0-2.0); EOS % 4.3 % (0-4.5); HEMATOCRIT 31.2 % (35.4-49); MCH 23.7 pg (25.7-33.7); MEAN CELL VOLUME 74.1 fl (80-96); MEAN PLT VOLUME 7.5 fl (7.5-11.1); MONO % 8.1 % (3.8-10.2); PLATELET COUNT 336 10^3/uL (134-434); RBC 4.21 M/mm3 (4.00-5.60); RDW 17.6 % (11.9-15.9)
[2021-08-15 12:04] LABS: ALBUMIN 1.8 g/dl (3.4-5.0); BILIRUBIN,TOTAL 0.4 mg/dL (0.2-1); BLOOD UREA NITROGEN 22.8 mg/dL (7-18); CALCIUM 8.3 mg/dL (8.5-10.1); CREATININE 1.5 mg/dL (0.55-1.3); TOT PROT 5.8 g/dl (6.4-8.2)
[2021-08-15] MEDS: oxyCODONE HCL 5 MG TABLET PO PRN (13:06)
[2021-08-15] MEDS: MINERAL OIL/PET HY-PHL TOPICAL OINTMENT 454 GM JAR TP SCH (17:29)
[2021-08-15] MEDS: RIVAROXABAN 10 MG TABLET PO SCH (17:30)
[2021-08-15] MEDS ORDERED: INSULIN (NOVOLOG) ASPART 100 UNITS/ML 10ML VIAL ONE (18:55)
[2021-08-15] MEDS ORDERED: INSULIN (NOVOLOG MIX 70/30) 100 UNITS/ML MDV SQ ONE (18:56)
[2021-08-15] MEDS: ATORVASTATIN CA 20 MG TABLET (FP) PO SCH (22:07)
[2021-08-16] MEDS ORDERED: PIPERACILLIN/TAZOBACTAM 3.375 GM VIAL IVPB ONE ×2 (01:01→09:24)
[2021-08-16] MEDS ORDERED: DEXTROSE 5%-WATER - 50 ML IVPB ONE ×2 (01:02→09:24)
[2021-08-16] MEDS: oxyCODONE HCL 5 MG TABLET PO PRN (01:09)
[2021-08-16] MEDS: PIPERACILLIN/TAZOB 3.375 GM 3.375 GM in DEXTROSE 5%-WATER - 50 ML IVPB SCH ×2 (01:09→09:41)
[2021-08-16] MEDS: INSULIN (NOVOLOG MIX 70/30) 100 UNITS/ML MDV SQ SCH ×2 (06:23→17:12)
[2021-08-16] MEDS: INSULIN SLIDING SCALE (NOVOLOG) 1 VIAL SQ SCH ×4 (06:24→21:00)
[2021-08-16] MEDS: INSULIN (LEVEMIR) 100 UNITS/ML UNITS SQ SCH ×2 (06:25→21:00)
[2021-08-16] MEDS: GABAPENTIN 300 MG CAPSULE PO SCH ×3 (06:27→21:00)
[2021-08-16] MEDS ORDERED: INSULIN (NOVOLOG) ASPART 100 UNITS/ML 10ML VIAL ONE ×3 (06:53→20:17)
[2021-08-16] MEDS ORDERED: PT OWN MED DRAWER 7, Y5N ONE ×3 (09:24→17:04)
[2021-08-16] MEDS: LOSARTAN 50MG/HCTZ 12.5MG 1 TAB PO SCH (09:42)
[2021-08-16] MEDS: DOCUSATE SODIUM 100 MG CAPSULE (FP) PO SCH ×2 (09:42→21:00)
[2021-08-16] MEDS: ASPIRIN 81 MG CHEWABLE TABLETS PO SCH (09:42)
[2021-08-16] MEDS: POLYETHYLENE GLYCOL (HEALTHYLAX) 3350 17 GM PACKET PO SCH (09:42)
[2021-08-16] MEDS: MINERAL OIL/PET HY-PHL TOPICAL OINTMENT 454 GM JAR TP SCH (09:42)
[2021-08-16] MEDS: amLODIPine BESYLATE 5 MG TABLET (FP) PO SCH (09:42)
[2021-08-16] MEDS: DOXYCYCLINE HYCLATE 100 MG CAPSULE PO SCH (09:42)
[2021-08-16] MEDS: LISINOPRIL 5 MG TABLET PO SCH (09:43)
[2021-08-16] MEDS: CLOPIDOGREL BISULFATE 75 MG TABLET (FP) PO SCH (09:43)
[2021-08-16] MEDS: VANCOMYCIN PREMIX 1.5 GM 1,500 MG/300 ML BAG IVPB SCH (11:33)
[2021-08-16] MEDS: RIVAROXABAN 10 MG TABLET PO SCH (17:14)
[2021-08-16] MEDS ORDERED: INSULIN (NOVOLOG MIX 70/30) 100 UNITS/ML MDV SQ ONE (18:07)
[2021-08-16] MEDS: ATORVASTATIN CA 20 MG TABLET (FP) PO SCH (21:00)
[2021-08-17] MEDS: oxyCODONE HCL 5 MG TABLET PO PRN (04:21)
[2021-08-17] MEDS: INSULIN (NOVOLOG MIX 70/30) 100 UNITS/ML MDV SQ SCH ×3 (06:30→18:48)
[2021-08-17] MEDS: INSULIN (LEVEMIR) 100 UNITS/ML UNITS SQ SCH ×2 (06:30→21:12)
[2021-08-17] MEDS: GABAPENTIN 300 MG CAPSULE PO SCH ×3 (06:31→21:13)
[2021-08-17] MEDS: INSULIN SLIDING SCALE (NOVOLOG) 1 VIAL SQ SCH ×4 (06:31→21:10)
[2021-08-17 08:51] LABS: BASO % 0.5 % (0-2.0); EOS % 4.9 % (0-4.5); HEMATOCRIT 33.2 % (35.4-49); HEMOGLOBIN 10.5 GM/dL (11.7-16.9); LYMPH % 20.1 % (8-40); MCH 23.8 pg (25.7-33.7); MCHC 31.6 g/dl (32.0-35.9); MEAN CELL VOLUME 75.1 fl (80-96); MEAN PLT VOLUME 7.4 fl (7.5-11.1); MONO % 5.2 % (3.8-10.2); NEUT % 69.3 % (42.8-82.8); PLATELET COUNT 439 10^3/uL (134-434); RBC 4.41 M/mm3 (4.00-5.60); RDW 17.8 % (11.9-15.9); WHITE BLOOD COUNT 14.4 K/mm3 (4.0-10.0)
[2021-08-17 09:17] LABS: BLOOD UREA NITROGEN 26.1 mg/dL (7-18); CALCIUM 8.8 mg/dL (8.5-10.1)
[2021-08-17 09:18] LABS: ALBUMIN 2.1 g/dl (3.4-5.0)
[2021-08-17 09:21] LABS: CREATININE 1.3 mg/dL (0.55-1.3)
[2021-08-17 09:22] LABS: BILIRUBIN,TOTAL 0.3 mg/dL (0.2-1); TOT PROT 6.4 g/dl (6.4-8.2)
[2021-08-17] MEDS ORDERED: PT OWN MED DRAWER 7, Y5N ONE ×3 (10:20→17:54)
[2021-08-17] MEDS: ASPIRIN 81 MG CHEWABLE TABLETS PO SCH (10:38)
[2021-08-17] MEDS: DOCUSATE SODIUM 100 MG CAPSULE (FP) PO SCH ×2 (10:39→21:13)
[2021-08-17] MEDS: MINERAL OIL/PET HY-PHL TOPICAL OINTMENT 454 GM JAR TP SCH (10:39)
[2021-08-17] MEDS: CLOPIDOGREL BISULFATE 75 MG TABLET (FP) PO SCH (10:39)
[2021-08-17] MEDS: VANCOMYCIN PREMIX 1.5 GM 1,500 MG/300 ML BAG IVPB SCH (10:40)
[2021-08-17] MEDS: POLYETHYLENE GLYCOL (HEALTHYLAX) 3350 17 GM PACKET PO SCH (10:40)
[2021-08-17] MEDS: LISINOPRIL 5 MG TABLET PO SCH (10:40)
[2021-08-17] MEDS: amLODIPine BESYLATE 5 MG TABLET (FP) PO SCH (10:41)
[2021-08-17] MEDS: LOSARTAN 50MG/HCTZ 12.5MG 1 TAB PO SCH (10:52)
[2021-08-17] MEDS ORDERED: INSULIN (NOVOLOG MIX 70/30) 100 UNITS/ML MDV SQ SCH (17:58)
[2021-08-17] MEDS: RIVAROXABAN 10 MG TABLET PO SCH (18:12)
[2021-08-17] MEDS: ATORVASTATIN CA 20 MG TABLET (FP) PO SCH (21:13)
[2021-08-18] MEDS: oxyCODONE HCL 5 MG TABLET PO PRN (01:20)
[2021-08-18] MEDS: INSULIN (LEVEMIR) 100 UNITS/ML UNITS SQ SCH ×2 (06:00→21:02)
[2021-08-18] MEDS: GABAPENTIN 300 MG CAPSULE PO SCH ×3 (06:00→21:02)
[2021-08-18] MEDS: INSULIN (NOVOLOG MIX 70/30) 100 UNITS/ML MDV SQ SCH ×2 (06:01→17:44)
[2021-08-18] MEDS: INSULIN SLIDING SCALE (NOVOLOG) 1 VIAL SQ SCH ×4 (06:02→21:02)
[2021-08-18 08:57] LABS: BASO % 0.4 % (0-2.0); EOS % 4.5 % (0-4.5); HEMATOCRIT 33.1 % (35.4-49); HEMOGLOBIN 10.6 GM/dL (11.7-16.9); LYMPH % 22.9 % (8-40); MCH 23.9 pg (25.7-33.7); MCHC 31.9 g/dl (32.0-35.9); MEAN CELL VOLUME 74.8 fl (80-96); MEAN PLT VOLUME 7.3 fl (7.5-11.1); MONO % 4.9 % (3.8-10.2); NEUT % 67.3 % (42.8-82.8); PLATELET COUNT 422 10^3/uL (134-434); RBC 4.43 M/mm3 (4.00-5.60); RDW 18.1 % (11.9-15.9)
[2021-08-18 09:31] LABS: CALCIUM 8.6 mg/dL (8.5-10.1)
[2021-08-18 09:32] LABS: ALBUMIN 1.9 g/dl (3.4-5.0); BLOOD UREA NITROGEN 23.4 mg/dL (7-18)
[2021-08-18 09:34] LABS: CREATININE 1.3 mg/dL (0.55-1.3)
[2021-08-18 09:35] LABS: BILIRUBIN,TOTAL 0.3 mg/dL (0.2-1)
[2021-08-18] MEDS ORDERED: PT OWN MED DRAWER 7, Y5N ONE (11:03)
[2021-08-18] MEDS: VANCOMYCIN PREMIX 1.5 GM 1,500 MG/300 ML BAG IVPB SCH (11:21)
[2021-08-18] MEDS: ASPIRIN 81 MG CHEWABLE TABLETS PO SCH (11:22)
[2021-08-18] MEDS: LOSARTAN 50MG/HCTZ 12.5MG 1 TAB PO SCH (11:22)
[2021-08-18] MEDS: DOCUSATE SODIUM 100 MG CAPSULE (FP) PO SCH ×2 (11:22→21:02)
[2021-08-18] MEDS: POLYETHYLENE GLYCOL (HEALTHYLAX) 3350 17 GM PACKET PO SCH (11:22)
[2021-08-18] MEDS: CLOPIDOGREL BISULFATE 75 MG TABLET (FP) PO SCH (11:23)
[2021-08-18] MEDS: LISINOPRIL 5 MG TABLET PO SCH (11:23)
[2021-08-18] MEDS: MINERAL OIL/PET HY-PHL TOPICAL OINTMENT 454 GM JAR TP SCH (11:23)
[2021-08-18] MEDS: amLODIPine BESYLATE 5 MG TABLET (FP) PO SCH (11:23)
[2021-08-18] MEDS: RIVAROXABAN 10 MG TABLET PO SCH (17:46)
[2021-08-18] MEDS: ATORVASTATIN CA 20 MG TABLET (FP) PO SCH (21:02)
[2021-08-19] MEDS: ACETAMINOPHEN 325 MG TABLET (FP) PO PRN (04:17)
[2021-08-19] MEDS: GABAPENTIN 300 MG CAPSULE PO SCH ×3 (05:05→22:36)
[2021-08-19] MEDS: INSULIN SLIDING SCALE (NOVOLOG) 1 VIAL SQ SCH ×4 (06:01→22:40)
[2021-08-19] MEDS: INSULIN (NOVOLOG MIX 70/30) 100 UNITS/ML MDV SQ SCH ×2 (06:02→16:45)
[2021-08-19] MEDS: INSULIN (LEVEMIR) 100 UNITS/ML UNITS SQ SCH ×2 (06:02→22:36)
[2021-08-19] MEDS ORDERED: PT OWN MED DRAWER 7, Y5N ONE ×3 (09:04→17:11)
[2021-08-19 09:16] LABS: BASO % 0.5 % (0-2.0); HEMATOCRIT 33.9 % (35.4-49); LYMPH % 23.4 % (8-40); MCH 24.3 pg (25.7-33.7); MCHC 32.4 g/dl (32.0-35.9); MEAN CELL VOLUME 75.2 fl (80-96); MEAN PLT VOLUME 7.1 fl (7.5-11.1); MONO % 5.3 % (3.8-10.2); NEUT % 66.8 % (42.8-82.8); PLATELET COUNT 438 10^3/uL (134-434); RBC 4.51 M/mm3 (4.00-5.60); WHITE BLOOD COUNT 11.1 K/mm3 (4.0-10.0)
[2021-08-19] MEDS: DOCUSATE SODIUM 100 MG CAPSULE (FP) PO SCH ×2 (09:18→22:36)
[2021-08-19] MEDS: ASPIRIN 81 MG CHEWABLE TABLETS PO SCH (09:18)
[2021-08-19] MEDS: MINERAL OIL/PET HY-PHL TOPICAL OINTMENT 454 GM JAR TP SCH (09:18)
[2021-08-19] MEDS: LOSARTAN 50MG/HCTZ 12.5MG 1 TAB PO SCH (09:18)
[2021-08-19] MEDS: CLOPIDOGREL BISULFATE 75 MG TABLET (FP) PO SCH (09:18)
[2021-08-19] MEDS: POLYETHYLENE GLYCOL (HEALTHYLAX) 3350 17 GM PACKET PO SCH (09:18)
[2021-08-19] MEDS: amLODIPine BESYLATE 5 MG TABLET (FP) PO SCH (09:19)
[2021-08-19] MEDS: LISINOPRIL 5 MG TABLET PO SCH (09:19)
[2021-08-19 09:39] LABS: ALBUMIN 2.1 g/dl (3.4-5.0); BLOOD UREA NITROGEN 23.4 mg/dL (7-18)
[2021-08-19 09:41] LABS: CALCIUM 8.5 mg/dL (8.5-10.1)
[2021-08-19 09:42] LABS: CREATININE 1.3 mg/dL (0.55-1.3)
[2021-08-19 09:43] LABS: BILIRUBIN,TOTAL 0.2 mg/dL (0.2-1)
[2021-08-19 09:44] LABS: TOT PROT 6.3 g/dl (6.4-8.2)
[2021-08-19] MEDS: VANCOMYCIN PREMIX 1.5 GM 1,500 MG/300 ML BAG IVPB SCH (14:42)
[2021-08-19] MEDS: RIVAROXABAN 10 MG TABLET PO SCH (17:17)
[2021-08-19] MEDS ORDERED: INSULIN (NOVOLOG MIX 70/30) 100 UNITS/ML MDV SQ ONE (17:45)
[2021-08-19] MEDS ORDERED: ACETAMINOPHEN 325 MG TABLET (FP) PO PRN (18:18)
[2021-08-19] MEDS ORDERED: INSULIN (NOVOLOG) ASPART 100 UNITS/ML 10ML VIAL ONE (22:29)
[2021-08-19] MEDS: ATORVASTATIN CA 20 MG TABLET (FP) PO SCH (22:36)
[2021-08-20] MEDS: oxyCODONE HCL 5 MG TABLET PO PRN (02:13)
[2021-08-20] MEDS: INSULIN (NOVOLOG MIX 70/30) 100 UNITS/ML MDV SQ SCH ×2 (06:31→16:30)
[2021-08-20] MEDS: GABAPENTIN 300 MG CAPSULE PO SCH ×3 (06:31→22:56)
[2021-08-20] MEDS: INSULIN (LEVEMIR) 100 UNITS/ML UNITS SQ SCH ×2 (06:32→22:57)
[2021-08-20] MEDS: INSULIN SLIDING SCALE (NOVOLOG) 1 VIAL SQ SCH ×4 (06:33→22:56)
[2021-08-20] MEDS ORDERED: INSULIN (NOVOLOG MIX 70/30) 100 UNITS/ML MDV SQ ONE (07:27)
[2021-08-20] MEDS ORDERED: INSULIN (NOVOLOG) ASPART 100 UNITS/ML 10ML VIAL ONE ×2 (07:28→11:17)
[2021-08-20] MEDS ORDERED: PT OWN MED DRAWER 7, Y5N ONE ×2 (08:59→16:24)
[2021-08-20] MEDS: POLYETHYLENE GLYCOL (HEALTHYLAX) 3350 17 GM PACKET PO SCH (09:17)
[2021-08-20] MEDS: ASPIRIN 81 MG CHEWABLE TABLETS PO SCH (09:18)
[2021-08-20] MEDS: LOSARTAN 50MG/HCTZ 12.5MG 1 TAB PO SCH (09:18)
[2021-08-20] MEDS: DOCUSATE SODIUM 100 MG CAPSULE (FP) PO SCH ×2 (09:18→22:56)
[2021-08-20] MEDS: amLODIPine BESYLATE 5 MG TABLET (FP) PO SCH (09:18)
[2021-08-20] MEDS: MINERAL OIL/PET HY-PHL TOPICAL OINTMENT 454 GM JAR TP SCH (09:18)
[2021-08-20] MEDS: LISINOPRIL 5 MG TABLET PO SCH (09:18)
[2021-08-20] MEDS: CLOPIDOGREL BISULFATE 75 MG TABLET (FP) PO SCH (09:18)
[2021-08-20] MEDS: VANCOMYCIN PREMIX 1.5 GM 1,500 MG/300 ML BAG IVPB SCH (11:28)
[2021-08-20] MEDS: RIVAROXABAN 10 MG TABLET PO SCH (17:11)
[2021-08-20] MEDS: ATORVASTATIN CA 20 MG TABLET (FP) PO SCH (22:56)
[2021-08-21] MEDS: oxyCODONE HCL 5 MG TABLET PO PRN (01:13)
[2021-08-21] MEDS: GABAPENTIN 300 MG CAPSULE PO SCH ×3 (06:53→22:19)
[2021-08-21] MEDS: INSULIN (LEVEMIR) 100 UNITS/ML UNITS SQ SCH ×2 (06:53→22:23)
[2021-08-21] MEDS: INSULIN SLIDING SCALE (NOVOLOG) 1 VIAL SQ SCH ×4 (06:55→22:22)
[2021-08-21] MEDS: INSULIN (NOVOLOG MIX 70/30) 100 UNITS/ML MDV SQ SCH ×2 (07:19→17:21)
[2021-08-21] MEDS ORDERED: INSULIN (NOVOLOG MIX 70/30) 100 UNITS/ML MDV SQ ONE ×3 (07:39→18:07)
[2021-08-21 08:07] LABS: BASO % 0.6 % (0-2.0); EOS % 3.6 % (0-4.5); HEMATOCRIT 35.7 % (35.4-49); HEMOGLOBIN 11.3 GM/dL (11.7-16.9); LYMPH % 27.6 % (8-40); MCH 24.1 pg (25.7-33.7); MCHC 31.8 g/dl (32.0-35.9); MEAN CELL VOLUME 75.8 fl (80-96); MEAN PLT VOLUME 7.1 fl (7.5-11.1); MONO % 5.2 % (3.8-10.2); PLATELET COUNT 433 10^3/uL (134-434); RBC 4.71 M/mm3 (4.00-5.60); RDW 17.9 % (11.9-15.9); WHITE BLOOD COUNT 10.5 K/mm3 (4.0-10.0)
[2021-08-21 08:23] LABS: ALBUMIN 2.2 g/dl (3.4-5.0); BLOOD UREA NITROGEN 22.4 mg/dL (7-18); CALCIUM 8.7 mg/dL (8.5-10.1)
[2021-08-21 08:26] LABS: CREATININE 1.3 mg/dL (0.55-1.3)
[2021-08-21 08:28] LABS: BILIRUBIN,TOTAL 0.3 mg/dL (0.2-1); TOT PROT 6.2 g/dl (6.4-8.2)
[2021-08-21] MEDS: LISINOPRIL 5 MG TABLET PO SCH (10:15)
[2021-08-21] MEDS: LOSARTAN 50MG/HCTZ 12.5MG 1 TAB PO SCH (10:17)
[2021-08-21] MEDS: ASPIRIN 81 MG CHEWABLE TABLETS PO SCH (10:17)
[2021-08-21] MEDS: amLODIPine BESYLATE 5 MG TABLET (FP) PO SCH (10:18)
[2021-08-21] MEDS: DOCUSATE SODIUM 100 MG CAPSULE (FP) PO SCH ×2 (10:19→22:19)
[2021-08-21] MEDS: CLOPIDOGREL BISULFATE 75 MG TABLET (FP) PO SCH (10:19)
[2021-08-21] MEDS: POLYETHYLENE GLYCOL (HEALTHYLAX) 3350 17 GM PACKET PO SCH (10:19)
[2021-08-21] MEDS ORDERED: INSULIN (NOVOLOG) ASPART 100 UNITS/ML 10ML VIAL ONE ×2 (11:37→18:07)
[2021-08-21] MEDS ORDERED: PT OWN MED DRAWER 7, Y5N ONE ×2 (12:18→17:01)
[2021-08-21] MEDS: VANCOMYCIN PREMIX 1.5 GM 1,500 MG/300 ML BAG IVPB SCH (12:30)
[2021-08-21] MEDS: MINERAL OIL/PET HY-PHL TOPICAL OINTMENT 454 GM JAR TP SCH (14:47)
[2021-08-21] MEDS: RIVAROXABAN 10 MG TABLET PO SCH (17:19)
[2021-08-21] MEDS: ATORVASTATIN CA 20 MG TABLET (FP) PO SCH (22:19)
[2021-08-22] MEDS: GABAPENTIN 300 MG CAPSULE PO SCH ×3 (05:56→22:35)
[2021-08-22] MEDS: INSULIN (LEVEMIR) 100 UNITS/ML UNITS SQ SCH ×2 (06:04→22:35)
[2021-08-22] MEDS: INSULIN SLIDING SCALE (NOVOLOG) 1 VIAL SQ SCH ×4 (06:04→22:36)
[2021-08-22] MEDS: INSULIN (NOVOLOG MIX 70/30) 100 UNITS/ML MDV SQ SCH ×2 (06:06→16:54)
[2021-08-22] MEDS ORDERED: PT OWN MED DRAWER 7, Y5N ONE ×2 (10:51→16:52)
[2021-08-22] MEDS: VANCOMYCIN PREMIX 1.5 GM 1,500 MG/300 ML BAG IVPB SCH (11:15)
[2021-08-22] MEDS: DOCUSATE SODIUM 100 MG CAPSULE (FP) PO SCH ×2 (11:16→22:35)
[2021-08-22] MEDS: CLOPIDOGREL BISULFATE 75 MG TABLET (FP) PO SCH (11:17)
[2021-08-22] MEDS: ASPIRIN 81 MG CHEWABLE TABLETS PO SCH (11:17)
[2021-08-22] MEDS: POLYETHYLENE GLYCOL (HEALTHYLAX) 3350 17 GM PACKET PO SCH (11:18)
[2021-08-22] MEDS: amLODIPine BESYLATE 5 MG TABLET (FP) PO SCH (11:18)
[2021-08-22] MEDS: LOSARTAN 50MG/HCTZ 12.5MG 1 TAB PO SCH (11:18)
[2021-08-22] MEDS: MINERAL OIL/PET HY-PHL TOPICAL OINTMENT 454 GM JAR TP SCH (11:18)
[2021-08-22] MEDS: LISINOPRIL 5 MG TABLET PO SCH (11:20)
[2021-08-22] MEDS ORDERED: INSULIN (NOVOLOG) ASPART 100 UNITS/ML 10ML VIAL ONE (11:26)
[2021-08-22] MEDS: oxyCODONE HCL 5 MG TABLET PO PRN (15:55)
[2021-08-22] MEDS: RIVAROXABAN 10 MG TABLET PO SCH ×2 (16:54→17:01)
[2021-08-22] MEDS: ATORVASTATIN CA 20 MG TABLET (FP) PO SCH (22:35)
[2021-08-23] MEDS: GABAPENTIN 300 MG CAPSULE PO SCH ×3 (06:13→22:33)
[2021-08-23] MEDS: INSULIN (LEVEMIR) 100 UNITS/ML UNITS SQ SCH ×2 (06:14→22:34)
[2021-08-23] MEDS: INSULIN (NOVOLOG MIX 70/30) 100 UNITS/ML MDV SQ SCH ×3 (06:15→17:41)
[2021-08-23] MEDS: INSULIN SLIDING SCALE (NOVOLOG) 1 VIAL SQ SCH ×4 (06:15→22:34)
[2021-08-23] MEDS ORDERED: PT OWN MED DRAWER 7, Y5N ONE (10:49)
[2021-08-23] MEDS: MINERAL OIL/PET HY-PHL TOPICAL OINTMENT 454 GM JAR TP SCH (11:08)
[2021-08-23] MEDS: CLOPIDOGREL BISULFATE 75 MG TABLET (FP) PO SCH (11:08)
[2021-08-23] MEDS: LISINOPRIL 5 MG TABLET PO SCH (11:08)
[2021-08-23] MEDS: ASPIRIN 81 MG CHEWABLE TABLETS PO SCH (11:08)
[2021-08-23] MEDS: LOSARTAN 50MG/HCTZ 12.5MG 1 TAB PO SCH (11:08)
[2021-08-23] MEDS: POLYETHYLENE GLYCOL (HEALTHYLAX) 3350 17 GM PACKET PO SCH (11:09)
[2021-08-23] MEDS: amLODIPine BESYLATE 5 MG TABLET (FP) PO SCH (11:09)
[2021-08-23] MEDS: DOCUSATE SODIUM 100 MG CAPSULE (FP) PO SCH ×2 (11:10→22:33)
[2021-08-23] MEDS: ACETAMINOPHEN 325 MG TABLET (FP) PO PRN (13:01)
[2021-08-23] MEDS: RIVAROXABAN 10 MG TABLET PO SCH (17:41)
[2021-08-23] MEDS: oxyCODONE HCL 5 MG TABLET PO PRN (22:33)
[2021-08-23] MEDS: ATORVASTATIN CA 20 MG TABLET (FP) PO SCH (22:33)
[2021-08-24] MEDS: INSULIN (NOVOLOG MIX 70/30) 100 UNITS/ML MDV SQ SCH ×2 (06:27→17:35)
[2021-08-24] MEDS: GABAPENTIN 300 MG CAPSULE PO SCH ×3 (06:27→21:28)
[2021-08-24] MEDS: INSULIN (LEVEMIR) 100 UNITS/ML UNITS SQ SCH ×2 (06:29→21:29)
[2021-08-24] MEDS: INSULIN SLIDING SCALE (NOVOLOG) 1 VIAL SQ SCH ×4 (06:29→21:28)
[2021-08-24] MEDS ORDERED: PT OWN MED DRAWER 7, Y5N ONE (09:46)
[2021-08-24] MEDS: CLOPIDOGREL BISULFATE 75 MG TABLET (FP) PO SCH (10:05)
[2021-08-24] MEDS: MINERAL OIL/PET HY-PHL TOPICAL OINTMENT 454 GM JAR TP SCH (10:05)
[2021-08-24] MEDS: POLYETHYLENE GLYCOL (HEALTHYLAX) 3350 17 GM PACKET PO SCH (10:05)
[2021-08-24] MEDS: amLODIPine BESYLATE 5 MG TABLET (FP) PO SCH ×2 (10:06→10:33)
[2021-08-24] MEDS: LOSARTAN 50MG/HCTZ 12.5MG 1 TAB PO SCH ×2 (10:06→10:33)
[2021-08-24] MEDS: ASPIRIN 81 MG CHEWABLE TABLETS PO SCH (10:06)
[2021-08-24] MEDS: LISINOPRIL 5 MG TABLET PO SCH ×2 (10:06→10:33)
[2021-08-24] MEDS: DOCUSATE SODIUM 100 MG CAPSULE (FP) PO SCH ×2 (10:06→21:28)
[2021-08-24] MEDS: RIVAROXABAN 10 MG TABLET PO SCH (17:37)
[2021-08-24] MEDS: ATORVASTATIN CA 20 MG TABLET (FP) PO SCH (21:28)
[2021-08-25] MEDS: GABAPENTIN 300 MG CAPSULE PO SCH ×3 (06:56→21:27)
[2021-08-25] MEDS: INSULIN (LEVEMIR) 100 UNITS/ML UNITS SQ SCH ×2 (06:56→21:28)
[2021-08-25] MEDS: INSULIN (NOVOLOG MIX 70/30) 100 UNITS/ML MDV SQ SCH ×2 (06:58→17:40)
[2021-08-25] MEDS: INSULIN SLIDING SCALE (NOVOLOG) 1 VIAL SQ SCH ×4 (06:59→21:27)
[2021-08-25] MEDS: POLYETHYLENE GLYCOL (HEALTHYLAX) 3350 17 GM PACKET PO SCH (09:32)
[2021-08-25] MEDS: DOCUSATE SODIUM 100 MG CAPSULE (FP) PO SCH ×2 (09:33→21:27)
[2021-08-25] MEDS: LOSARTAN 50MG/HCTZ 12.5MG 1 TAB PO SCH (09:33)
[2021-08-25] MEDS: amLODIPine BESYLATE 5 MG TABLET (FP) PO SCH (09:34)
[2021-08-25] MEDS: LISINOPRIL 5 MG TABLET PO SCH (09:34)
[2021-08-25] MEDS: CLOPIDOGREL BISULFATE 75 MG TABLET (FP) PO SCH (09:34)
[2021-08-25] MEDS: ASPIRIN 81 MG CHEWABLE TABLETS PO SCH (09:34)
[2021-08-25] MEDS: MINERAL OIL/PET HY-PHL TOPICAL OINTMENT 454 GM JAR TP SCH (09:34)
[2021-08-25] MEDS: RIVAROXABAN 10 MG TABLET PO SCH (17:38)
[2021-08-25] MEDS: oxyCODONE HCL 5 MG TABLET PO PRN (18:42)
[2021-08-25] MEDS: ATORVASTATIN CA 20 MG TABLET (FP) PO SCH (21:27)
[2021-08-26] MEDS: INSULIN (LEVEMIR) 100 UNITS/ML UNITS SQ SCH (06:29)
[2021-08-26] MEDS: GABAPENTIN 300 MG CAPSULE PO SCH ×2 (06:29→13:26)
[2021-08-26] MEDS: INSULIN SLIDING SCALE (NOVOLOG) 1 VIAL SQ SCH ×3 (06:30→19:29)
[2021-08-26] MEDS: INSULIN (NOVOLOG MIX 70/30) 100 UNITS/ML MDV SQ SCH ×2 (06:30→19:29)
[2021-08-26] MEDS: DOCUSATE SODIUM 100 MG CAPSULE (FP) PO SCH (11:14)
[2021-08-26] MEDS: ASPIRIN 81 MG CHEWABLE TABLETS PO SCH (11:14)
[2021-08-26] MEDS: POLYETHYLENE GLYCOL (HEALTHYLAX) 3350 17 GM PACKET PO SCH (11:14)
[2021-08-26] MEDS: LISINOPRIL 5 MG TABLET PO SCH (11:14)
[2021-08-26] MEDS: amLODIPine BESYLATE 5 MG TABLET (FP) PO SCH (11:16)
[2021-08-26] MEDS: LOSARTAN 50MG/HCTZ 12.5MG 1 TAB PO SCH (11:16)
[2021-08-26] MEDS: MINERAL OIL/PET HY-PHL TOPICAL OINTMENT 454 GM JAR TP SCH (11:16)
[2021-08-26] MEDS: CLOPIDOGREL BISULFATE 75 MG TABLET (FP) PO SCH (11:16)
[2021-08-26 13:17] LABS: BASO % 0.4 % (0-2.0); EOS % 3.7 % (0-4.5); HEMATOCRIT 35.9 % (35.4-49); HEMOGLOBIN 11.6 GM/dL (11.7-16.9); LYMPH % 33.7 % (8-40); MCHC 32.4 g/dl (32.0-35.9); MEAN CELL VOLUME 74.2 fl (80-96); MEAN PLT VOLUME 7.3 fl (7.5-11.1); MONO % 5.5 % (3.8-10.2); NEUT % 56.7 % (42.8-82.8); PLATELET COUNT 380 10^3/uL (134-434); RBC 4.85 M/mm3 (4.00-5.60); RDW 18.2 % (11.9-15.9); WHITE BLOOD COUNT 8.6 K/mm3 (4.0-10.0)
[2021-08-26 13:26] LABS: CALCIUM 9.3 mg/dL (8.5-10.1)
[2021-08-26 13:27] LABS: BLOOD UREA NITROGEN 24.7 mg/dL (7-18)
[2021-08-26 13:29] VITALS: BP 133/80; PULSE 90; TEMP 98.3
[2021-08-26 13:30] LABS: CREATININE 1.4 mg/dL (0.55-1.3)
[2021-08-26 13:31] LABS: TOT PROT 6.9 g/dl (6.4-8.2)
[2021-08-26 13:32] LABS: BILIRUBIN,TOTAL 0.3 mg/dL (0.2-1)
[2021-08-26 13:36] LABS: ALBUMIN 2.7 g/dl (3.4-5.0)
== END 2021-08-26 17:05 | disposition home or self-care (01) | DRG 720 ==
LOC: JER 08:52 → JERBED 11:21 → J8W 17:32 → J5S 08-22 17:59
PROVIDERS: ADMIT Family Medicine Geriatric Medicine; ATTEND Internal Medicine
PROC: 0J970ZX Drainage of Back Subcutaneous Tissue and Fascia, Open Approach, Diagnostic (ICD-10-PCS; principal; 2021-08-14 09:30)
DX: A41.9 Sepsis, unspecified organism (principal); I10 Essential (primary) hypertension; D72.829 Elevated white blood cell count, unspecified; L02.11 Cutaneous abscess of neck; Z68.41 Body mass index [BMI] 40.0-44.9, adult; E66.9 Obesity, unspecified; E78.5 Hyperlipidemia, unspecified; E11.40 Type 2 diabetes mellitus with diabetic neuropathy, unspecified
CPT/HCPCS: 36415; 70491-TC; 71045-TC-FY; 80048; 80053; 82962; 83036; 83605; 85025; 85610; 85730; 86850; 86900; 86901; 87040; 87070; 87186; 87205; 93005; 93010; 94760; 99285-25; C9803; G0480; J0131; U0003; U0005

== ENCOUNTER 2021-12-18 04:55 | Inpatient (IN) | payer OTHER ==
[2021-12-16 15:24] VITALS: BMI 42.3
[2021-12-18] MEDS ORDERED: LIDOCAINE HCL 2% 100 MG/5 ML DISP.SYRIN ONE (10:26)
[2021-12-18] MEDS ORDERED: DEXAMETHASONE SOD PHOSPHATE 4 MG/1 ML VIAL ONE (10:26)
[2021-12-18] MEDS ORDERED: KETOROLAC TROMETHAMINE 30 MG/1 ML VIAL ONE (10:26)
[2021-12-18] MEDS ORDERED: PROPOFOL 20 ML ONE ×2 (10:27→12:04)
[2021-12-18] MEDS ORDERED: MIDAZOLAM HCL 2 MG/2 ML SINGLE DOSE VIAL ONE (10:28)
[2021-12-18] MEDS ORDERED: LIDOCAINE HCL 1%, 10 MG/ML (50 mL VIAL) INF ONE (12:13)
[2021-12-18] MEDS ORDERED: ceFAZolin SODIUM 1 GM VIAL IVPB ONE (12:38)
[2021-12-18] MEDS ORDERED: HYDROmorphone HCl 2 MG/ML VIAL ONE (12:44)
[2021-12-18] MEDS ORDERED: ONDANSETRON 4 MG/2 ML VIAL IVPUSH PRN (12:46)
[2021-12-18] MEDS ORDERED: HYDROmorphone HCl 2 MG/ML VIAL IVPUSH PRN (12:46)
[2021-12-18] MEDS ORDERED: oxyCODONE HCL 5 MG TABLET PO PRN (13:15)
[2021-12-18] MEDS ORDERED: DOCUSATE SODIUM 100 MG CAPSULE (FP) PO SCH (13:15)
[2021-12-18] MEDS ORDERED: ACETAMINOPHEN 1000 MG/100 ML BAG IVPB ONE (13:30)
[2021-12-18] MEDS ORDERED: ACETAMINOPHEN INJECTION 100 ML IVPB ONE (15:40)
[2021-12-18] MEDS: VANCOMYCIN/WATER FOR INJ (PEG) 1,000 MG/200 ML BAG IVPB SCH (17:03)
[2021-12-18] MEDS: CEFTRIAXONE 2 GM in DEXTROSE 5%-WATER 100 ML IVPB SCH (17:03)
[2021-12-18] MEDS: LACTATED RINGERS SOLUTION 1,000 ML IV SCH (17:04)
[2021-12-18] MEDS: INSULIN SLIDING SCALE (NOVOLOG) 1 VIAL SQ SCH ×2 (17:37→21:25)
[2021-12-18] MEDS: ACETAMINOPHEN 500 MG TABLET (FP) PO SCH (21:10)
[2021-12-18] MEDS: ATORVASTATIN CA 20 MG TABLET (FP) PO SCH (21:11)
[2021-12-18] MEDS: DOCUSATE SODIUM 100 MG CAPSULE (FP) PO SCH (21:11)
[2021-12-18] MEDS: GABAPENTIN 300 MG CAPSULE PO SCH (21:12)
[2021-12-18] MEDS: oxyCODONE HCL 5 MG TABLET PO PRN (21:14)
[2021-12-18] MEDS ORDERED: INSULIN (NOVOLOG) ASPART 100 UNITS/ML 10ML VIAL ONE (21:23)
[2021-12-19] MEDS: LACTATED RINGERS SOLUTION 1,000 ML IV SCH ×2 (04:10→18:40)
[2021-12-19] MEDS: ACETAMINOPHEN 500 MG TABLET (FP) PO SCH ×3 (06:32→22:38)
[2021-12-19] MEDS: INSULIN SLIDING SCALE (NOVOLOG) 1 VIAL SQ SCH ×4 (06:32→22:50)
[2021-12-19] MEDS ORDERED: DEXTROSE 5%-WATER 100 ML IVPB ONE (09:44)
[2021-12-19] MEDS: GABAPENTIN 300 MG CAPSULE PO SCH ×2 (10:05→22:49)
[2021-12-19] MEDS: CEFTRIAXONE 2 GM in DEXTROSE 5%-WATER 100 ML IVPB SCH (10:05)
[2021-12-19] MEDS: amLODIPine BESYLATE 5 MG TABLET (FP) PO SCH (10:05)
[2021-12-19] MEDS: LOSARTAN 50MG/HCTZ 12.5MG 1 TAB PO SCH (10:05)
[2021-12-19] MEDS: DOCUSATE SODIUM 100 MG CAPSULE (FP) PO SCH ×2 (10:05→22:49)
[2021-12-19] MEDS: ASPIRIN 81 MG CHEWABLE TABLETS PO SCH (10:06)
[2021-12-19 12:24] LABS: HEMATOCRIT 27.8 % (35.4-49); HEMOGLOBIN 8.6 GM/dL (11.7-16.9); MCH 22.5 pg (25.7-33.7); MEAN CELL VOLUME 72.5 fl (80-96); MEAN PLT VOLUME 6.9 fl (7.5-11.1); MONO % 6.5 % (3.8-10.2); NEUT % 77.5 % (42.8-82.8); PLATELET COUNT 462 10^3/uL (134-434); RBC 3.83 M/mm3 (4.00-5.60); RDW 18.3 % (11.9-15.9); WHITE BLOOD COUNT 13.1 K/mm3 (4.0-10.0)
[2021-12-19 12:46] LABS: CALCIUM 8.7 mg/dL (8.5-10.1)
[2021-12-19 12:47] LABS: BLOOD UREA NITROGEN 26.7 mg/dL (7-18)
[2021-12-19 12:50] LABS: CREATININE 1.4 mg/dL (0.55-1.3)
[2021-12-19] MEDS: oxyCODONE HCL 5 MG TABLET PO PRN (13:13)
[2021-12-19] MEDS: VANCOMYCIN/WATER FOR INJ (PEG) 1,000 MG/200 ML BAG IVPB SCH (15:21)
[2021-12-19] MEDS ORDERED: INSULIN (NOVOLOG) ASPART 100 UNITS/ML 10ML VIAL ONE (22:45)
[2021-12-19] MEDS: ATORVASTATIN CA 20 MG TABLET (FP) PO SCH (22:49)
[2021-12-20] MEDS: morphine SULFATE 4 MG/ML VIAL IVPUSH PRN ×2 (06:11→19:10)
[2021-12-20] MEDS: INSULIN SLIDING SCALE (NOVOLOG) 1 VIAL SQ SCH ×4 (06:19→21:52)
[2021-12-20] MEDS ORDERED: DEXTROSE 5%-WATER 100 ML IVPB ONE (09:23)
[2021-12-20] MEDS: amLODIPine BESYLATE 5 MG TABLET (FP) PO SCH (09:27)
[2021-12-20] MEDS: ASPIRIN 81 MG CHEWABLE TABLETS PO SCH (09:27)
[2021-12-20] MEDS: GABAPENTIN 300 MG CAPSULE PO SCH ×2 (09:27→21:39)
[2021-12-20] MEDS: LOSARTAN 50MG/HCTZ 12.5MG 1 TAB PO SCH (09:27)
[2021-12-20] MEDS: DOCUSATE SODIUM 100 MG CAPSULE (FP) PO SCH ×2 (09:27→21:39)
[2021-12-20] MEDS: CEFTRIAXONE 2 GM in DEXTROSE 5%-WATER 100 ML IVPB SCH (09:27)
[2021-12-20 09:34] LABS: EOS % 2.2 % (0-4.5); HEMATOCRIT 26.2 % (35.4-49); HEMOGLOBIN 8.5 GM/dL (11.7-16.9); LYMPH % 15.9 % (8-40); MCH 23.1 pg (25.7-33.7); MCHC 32.3 g/dl (32.0-35.9); MEAN CELL VOLUME 71.5 fl (80-96); MEAN PLT VOLUME 6.5 fl (7.5-11.1); MONO % 6.2 % (3.8-10.2); NEUT % 74.7 % (42.8-82.8); PLATELET COUNT 481 10^3/uL (134-434); RBC 3.66 M/mm3 (4.00-5.60); WHITE BLOOD COUNT 10.9 K/mm3 (4.0-10.0)
[2021-12-20 10:00] LABS: ALBUMIN 1.9 g/dl (3.4-5.0); BLOOD UREA NITROGEN 26.7 mg/dL (7-18); CALCIUM 8.6 mg/dL (8.5-10.1)
[2021-12-20 10:03] LABS: CREATININE 1.2 mg/dL (0.55-1.3)
[2021-12-20 10:05] LABS: BILIRUBIN,TOTAL 0.2 mg/dL (0.2-1); TOT PROT 6.5 g/dl (6.4-8.2)
[2021-12-20] MEDS: VANCOMYCIN/WATER BAGS 1,250 MG/250 ML BAG IVPB SCH (14:56)
[2021-12-20] MEDS ORDERED: INSULIN (NOVOLOG) ASPART 100 UNITS/ML 10ML VIAL ONE (21:32)
[2021-12-20] MEDS: oxyCODONE HCL 5 MG TABLET PO PRN (21:38)
[2021-12-20] MEDS: ATORVASTATIN CA 20 MG TABLET (FP) PO SCH (21:39)
[2021-12-20] MEDS: HEPARIN NA (PORCINE) 5,000 UNITS/ML 1ML VIAL SQ SCH (21:39)
[2021-12-21] MEDS: VANCOMYCIN/WATER BAGS 1,250 MG/250 ML BAG IVPB SCH ×2 (01:45→13:05)
[2021-12-21] MEDS: HEPARIN NA (PORCINE) 5,000 UNITS/ML 1ML VIAL SQ SCH ×3 (05:51→22:11)
[2021-12-21] MEDS: oxyCODONE HCL 5 MG TABLET PO PRN ×2 (06:00→20:26)
[2021-12-21] MEDS: INSULIN SLIDING SCALE (NOVOLOG) 1 VIAL SQ SCH ×4 (06:00→22:12)
[2021-12-21 09:30] LABS: EOS % 2.4 % (0-4.5); HEMATOCRIT 25.3 % (35.4-49); HEMOGLOBIN 8.2 GM/dL (11.7-16.9); LYMPH % 17.1 % (8-40); MCH 23.3 pg (25.7-33.7); MCHC 32.3 g/dl (32.0-35.9); MEAN CELL VOLUME 72.1 fl (80-96); MEAN PLT VOLUME 6.8 fl (7.5-11.1); MONO % 6.8 % (3.8-10.2); NEUT % 72.7 % (42.8-82.8); PLATELET COUNT 474 10^3/uL (134-434); RBC 3.51 M/mm3 (4.00-5.60); RDW 18.4 % (11.9-15.9); WHITE BLOOD COUNT 11.5 K/mm3 (4.0-10.0)
[2021-12-21] MEDS ORDERED: DEXTROSE 5%-WATER 100 ML IVPB ONE (09:52)
[2021-12-21] MEDS: ASPIRIN 81 MG CHEWABLE TABLETS PO SCH (09:58)
[2021-12-21] MEDS: amLODIPine BESYLATE 5 MG TABLET (FP) PO SCH (09:58)
[2021-12-21] MEDS: GABAPENTIN 300 MG CAPSULE PO SCH ×2 (09:58→22:12)
[2021-12-21] MEDS: CEFTRIAXONE 2 GM in DEXTROSE 5%-WATER 100 ML IVPB SCH (09:58)
[2021-12-21] MEDS: DOCUSATE SODIUM 100 MG CAPSULE (FP) PO SCH ×2 (09:58→22:11)
[2021-12-21] MEDS: INSULIN (LEVEMIR) 100 UNITS/ML UNITS SQ SCH ×2 (09:58→22:11)
[2021-12-21] MEDS: LOSARTAN 50MG/HCTZ 12.5MG 1 TAB PO SCH (10:00)
[2021-12-21 10:19] LABS: ALBUMIN 1.7 g/dl (3.4-5.0); BLOOD UREA NITROGEN 18.2 mg/dL (7-18); CALCIUM 8.4 mg/dL (8.5-10.1)
[2021-12-21 10:22] LABS: CREATININE 1.2 mg/dL (0.55-1.3)
[2021-12-21 10:24] LABS: BILIRUBIN,TOTAL 0.3 mg/dL (0.2-1); TOT PROT 6.6 g/dl (6.4-8.2)
[2021-12-21] MEDS: ATORVASTATIN CA 20 MG TABLET (FP) PO SCH (22:11)
[2021-12-22] MEDS: VANCOMYCIN/WATER BAGS 1,250 MG/250 ML BAG IVPB SCH ×2 (01:56→14:11)
[2021-12-22] MEDS: oxyCODONE HCL 5 MG TABLET PO PRN ×3 (02:05→20:56)
[2021-12-22] MEDS: HEPARIN NA (PORCINE) 5,000 UNITS/ML 1ML VIAL SQ SCH ×3 (06:40→21:01)
[2021-12-22] MEDS: INSULIN (LEVEMIR) 100 UNITS/ML UNITS SQ SCH ×2 (06:40→21:01)
[2021-12-22] MEDS: INSULIN SLIDING SCALE (NOVOLOG) 1 VIAL SQ SCH ×4 (06:43→21:01)
[2021-12-22] MEDS ORDERED: DEXTROSE 5%-WATER 100 ML IVPB ONE (09:22)
[2021-12-22] MEDS: CEFTRIAXONE 2 GM in DEXTROSE 5%-WATER 100 ML IVPB SCH (09:39)
[2021-12-22] MEDS: LOSARTAN 50MG/HCTZ 12.5MG 1 TAB PO SCH (09:40)
[2021-12-22] MEDS: ASPIRIN 81 MG CHEWABLE TABLETS PO SCH (09:40)
[2021-12-22] MEDS: GABAPENTIN 300 MG CAPSULE PO SCH ×2 (09:40→21:01)
[2021-12-22] MEDS: amLODIPine BESYLATE 5 MG TABLET (FP) PO SCH (09:40)
[2021-12-22] MEDS: DOCUSATE SODIUM 100 MG CAPSULE (FP) PO SCH ×2 (09:40→21:01)
[2021-12-22] MEDS: ATORVASTATIN CA 20 MG TABLET (FP) PO SCH (21:01)
[2021-12-23] MEDS: VANCOMYCIN/WATER BAGS 1,250 MG/250 ML BAG IVPB SCH ×2 (01:00→14:12)
[2021-12-23] MEDS: oxyCODONE HCL 5 MG TABLET PO PRN ×2 (04:06→22:35)
[2021-12-23] MEDS: INSULIN (LEVEMIR) 100 UNITS/ML UNITS SQ SCH (05:59)
[2021-12-23] MEDS: INSULIN SLIDING SCALE (NOVOLOG) 1 VIAL SQ SCH ×3 (06:00→16:29)
[2021-12-23] MEDS ORDERED: DEXTROSE 5%-WATER 100 ML IVPB ONE (08:57)
[2021-12-23] MEDS: LOSARTAN 50MG/HCTZ 12.5MG 1 TAB PO SCH (09:02)
[2021-12-23] MEDS: amLODIPine BESYLATE 5 MG TABLET (FP) PO SCH (09:02)
[2021-12-23] MEDS: CEFTRIAXONE 2 GM in DEXTROSE 5%-WATER 100 ML IVPB SCH (09:03)
[2021-12-23] MEDS: morphine SULFATE 4 MG/ML VIAL IVPUSH PRN (09:10)
[2021-12-23] MEDS: GABAPENTIN 300 MG CAPSULE PO SCH ×2 (10:40→21:27)
[2021-12-23] MEDS: DOCUSATE SODIUM 100 MG CAPSULE (FP) PO SCH ×2 (10:40→21:27)
[2021-12-23] MEDS: ASPIRIN 81 MG CHEWABLE TABLETS PO SCH (10:40)
[2021-12-23 12:06] LABS: HEMOGLOBIN 8.9 GM/dL (11.7-16.9); LYMPH % 15.1 % (8-40); MCH 22.3 pg (25.7-33.7); MCHC 30.8 g/dl (32.0-35.9); MEAN CELL VOLUME 72.3 fl (80-96); MEAN PLT VOLUME 6.8 fl (7.5-11.1); NEUT % 74.8 % (42.8-82.8); PLATELET COUNT 527 10^3/uL (134-434); RBC 4.01 M/mm3 (4.00-5.60); RDW 18.6 % (11.9-15.9); WHITE BLOOD COUNT 12.3 K/mm3 (4.0-10.0)
[2021-12-23 12:07] LABS: BASO % 1.4 % (0-2.0); EOS % 2.2 % (0-4.5); MONO % 6.5 % (3.8-10.2)
[2021-12-23 12:38] LABS: ALBUMIN 1.8 g/dl (3.4-5.0); BLOOD UREA NITROGEN 18.8 mg/dL (7-18); CALCIUM 8.7 mg/dL (8.5-10.1)
[2021-12-23 12:41] LABS: CREATININE 1.1 mg/dL (0.55-1.3)
[2021-12-23 12:43] LABS: BILIRUBIN,TOTAL 0.4 mg/dL (0.2-1)
[2021-12-23 16:24] LABS: INR 1.29 (0.83-1.09); PROTHROMBIN TIME (PATIENT) 14.9 SEC (9.7-13.0)
[2021-12-23 16:27] LABS: ACTIVATED PTT 28.9 SECONDS (25.2-36.5)
[2021-12-23] MEDS ORDERED: INSULIN (LEVEMIR) 100 UNITS/ML UNITS SQ SCH (16:35)
[2021-12-23] MEDS ORDERED: INSULIN SLIDING SCALE (NOVOLOG) 1 VIAL SQ SCH ×2 (16:36→22:00)
[2021-12-23] MEDS ORDERED: MIDAZOLAM HCL 2 MG/2 ML SINGLE DOSE VIAL ONE (16:41)
[2021-12-23] MEDS ORDERED: ceFAZolin SODIUM 1 GM VIAL ONE (17:08)
[2021-12-23] MEDS ORDERED: ceFAZolin SODIUM 1 GM VIAL IVPB ONE (17:10)
[2021-12-23] MEDS ORDERED: PROPOFOL 20 ML ONE ×2 (17:30→18:19)
[2021-12-23] MEDS ORDERED: morphine SULFATE 4 MG/ML VIAL IVPUSH PRN (18:51)
[2021-12-23] MEDS ORDERED: ONDANSETRON 4 MG/2 ML VIAL IVPUSH PRN (18:53)
[2021-12-23] MEDS: LACTATED RINGERS SOLUTION 1,000 ML IV SCH (20:04)
[2021-12-23] MEDS: HEPARIN NA (PORCINE) 5,000 UNITS/ML 1ML VIAL SQ SCH (21:27)
[2021-12-23] MEDS: ATORVASTATIN CA 20 MG TABLET (FP) PO SCH (21:27)
[2021-12-24] MEDS: ACETAMINOPHEN 1000 MG/100 ML BAG IVPB SCH ×3 (00:05→14:17)
[2021-12-24] MEDS: VANCOMYCIN/WATER BAGS 1,250 MG/250 ML BAG IVPB SCH ×2 (01:00→14:18)
[2021-12-24] MEDS: oxyCODONE HCL 5 MG TABLET PO PRN ×3 (04:24→23:07)
[2021-12-24] MEDS: HEPARIN NA (PORCINE) 5,000 UNITS/ML 1ML VIAL SQ SCH ×3 (06:15→21:16)
[2021-12-24] MEDS: INSULIN SLIDING SCALE (NOVOLOG) 1 VIAL SQ SCH ×4 (06:20→21:16)
[2021-12-24 08:53] LABS: BASO % 0.6 % (0-2.0); EOS % 0.7 % (0-4.5); HEMATOCRIT 28.4 % (35.4-49); LYMPH % 12.3 % (8-40); MCH 22.5 pg (25.7-33.7); MCHC 31.6 g/dl (32.0-35.9); MEAN CELL VOLUME 71.2 fl (80-96); MEAN PLT VOLUME 6.7 fl (7.5-11.1); MONO % 6.3 % (3.8-10.2); NEUT % 80.1 % (42.8-82.8); PLATELET COUNT 525 10^3/uL (134-434); RBC 3.99 M/mm3 (4.00-5.60); RDW 18.6 % (11.9-15.9); WHITE BLOOD COUNT 13.6 K/mm3 (4.0-10.0)
[2021-12-24 09:24] LABS: CALCIUM 8.6 mg/dL (8.5-10.1)
[2021-12-24 09:28] LABS: CREATININE 1.5 mg/dL (0.55-1.3)
[2021-12-24 09:30] LABS: TOT PROT 7.3 g/dl (6.4-8.2)
[2021-12-24 09:31] LABS: BILIRUBIN,TOTAL 0.6 mg/dL (0.2-1)
[2021-12-24 09:32] LABS: ALBUMIN 2.2 g/dl (3.4-5.0)
[2021-12-24] MEDS ORDERED: DEXTROSE 5%-WATER 100 ML IVPB ONE (09:59)
[2021-12-24] MEDS ORDERED: LOSARTAN 50MG/HCTZ 12.5MG 1 TAB PO SCH (10:00)
[2021-12-24] MEDS ORDERED: POLYETHYLENE GLYCOL (HEALTHYLAX) 3350 17 GM PACKET PO SCH (10:00)
[2021-12-24] MEDS: POLYETHYLENE GLYCOL (HEALTHYLAX) 3350 17 GM PACKET PO SCH (10:30)
[2021-12-24] MEDS: ASPIRIN 81 MG CHEWABLE TABLETS PO SCH (10:30)
[2021-12-24] MEDS: DOCUSATE SODIUM 100 MG CAPSULE (FP) PO SCH ×2 (10:30→21:16)
[2021-12-24] MEDS: amLODIPine BESYLATE 5 MG TABLET (FP) PO SCH (10:31)
[2021-12-24] MEDS: GABAPENTIN 300 MG CAPSULE PO SCH ×2 (10:31→21:16)
[2021-12-24] MEDS: CEFTRIAXONE 2 GM in DEXTROSE 5%-WATER 100 ML IVPB SCH (10:32)
[2021-12-24] MEDS ORDERED: INSULIN (NOVOLOG) ASPART 100 UNITS/ML 10ML VIAL ONE ×2 (10:50→21:09)
[2021-12-24] MEDS: LACTATED RINGERS SOLUTION 1,000 ML IV SCH (14:23)
[2021-12-24] MEDS: ACETAMINOPHEN 500 MG TABLET (FP) PO SCH (21:06)
[2021-12-24] MEDS: ATORVASTATIN CA 20 MG TABLET (FP) PO SCH (21:16)
[2021-12-24] MEDS: INSULIN (LEVEMIR) 100 UNITS/ML UNITS SQ SCH (22:32)
[2021-12-25] MEDS: ACETAMINOPHEN 500 MG TABLET (FP) PO SCH ×4 (01:58→21:01)
[2021-12-25] MEDS: VANCOMYCIN/WATER BAGS 1,250 MG/250 ML BAG IVPB SCH (01:59)
[2021-12-25] MEDS: oxyCODONE HCL 5 MG TABLET PO PRN ×2 (05:52→10:24)
[2021-12-25] MEDS: HEPARIN NA (PORCINE) 5,000 UNITS/ML 1ML VIAL SQ SCH ×3 (06:43→21:35)
[2021-12-25] MEDS: INSULIN SLIDING SCALE (NOVOLOG) 1 VIAL SQ SCH ×4 (06:43→21:38)
[2021-12-25] MEDS: INSULIN (LEVEMIR) 100 UNITS/ML UNITS SQ SCH ×2 (06:45→21:35)
[2021-12-25] MEDS: LACTATED RINGERS SOLUTION 1,000 ML IV SCH ×2 (08:59→23:00)
[2021-12-25 09:06] LABS: BASO % 0.3 % (0-2.0); EOS % 2.1 % (0-4.5); HEMATOCRIT 27.4 % (35.4-49); HEMOGLOBIN 8.5 GM/dL (11.7-16.9); LYMPH % 13.9 % (8-40); MCH 22.3 pg (25.7-33.7); MCHC 31.2 g/dl (32.0-35.9); MEAN CELL VOLUME 71.4 fl (80-96); MEAN PLT VOLUME 7.2 fl (7.5-11.1); NEUT % 75.7 % (42.8-82.8); PLATELET COUNT 503 10^3/uL (134-434); RBC 3.84 M/mm3 (4.00-5.60); RDW 18.2 % (11.9-15.9); WHITE BLOOD COUNT 11.3 K/mm3 (4.0-10.0)
[2021-12-25 09:37] LABS: ALBUMIN 2.1 g/dl (3.4-5.0); CALCIUM 8.4 mg/dL (8.5-10.1)
[2021-12-25 09:39] LABS: BLOOD UREA NITROGEN 19.9 mg/dL (7-18)
[2021-12-25 09:41] LABS: CREATININE 1.1 mg/dL (0.55-1.3)
[2021-12-25 09:43] LABS: BILIRUBIN,TOTAL 0.3 mg/dL (0.2-1); TOT PROT 7.1 g/dl (6.4-8.2)
[2021-12-25] MEDS ORDERED: DEXTROSE 5%-WATER 100 ML IVPB ONE (10:11)
[2021-12-25] MEDS: GABAPENTIN 300 MG CAPSULE PO SCH ×2 (10:22→21:35)
[2021-12-25] MEDS: DOCUSATE SODIUM 100 MG CAPSULE (FP) PO SCH ×2 (10:22→21:35)
[2021-12-25] MEDS: POLYETHYLENE GLYCOL (HEALTHYLAX) 3350 17 GM PACKET PO SCH (10:23)
[2021-12-25] MEDS: CEFTRIAXONE 2 GM in DEXTROSE 5%-WATER 100 ML IVPB SCH (10:23)
[2021-12-25] MEDS: LOSARTAN POTASSIUM 50 MG TABLET PO SCH (10:23)
[2021-12-25] MEDS: ASPIRIN 81 MG CHEWABLE TABLETS PO SCH (10:23)
[2021-12-25] MEDS: amLODIPine BESYLATE 5 MG TABLET (FP) PO SCH (10:23)
[2021-12-25] MEDS ORDERED: INSULIN (NOVOLOG) ASPART 100 UNITS/ML 10ML VIAL ONE ×2 (11:58→21:32)
[2021-12-25] MEDS: ATORVASTATIN CA 20 MG TABLET (FP) PO SCH (21:35)
[2021-12-26] MEDS: ACETAMINOPHEN 500 MG TABLET (FP) PO SCH (02:28)
[2021-12-26] MEDS: oxyCODONE HCL 5 MG TABLET PO PRN ×3 (06:41→16:40)
[2021-12-26] MEDS: HEPARIN NA (PORCINE) 5,000 UNITS/ML 1ML VIAL SQ SCH ×2 (06:42→13:52)
[2021-12-26] MEDS: INSULIN (LEVEMIR) 100 UNITS/ML UNITS SQ SCH (06:47)
[2021-12-26] MEDS: INSULIN SLIDING SCALE (NOVOLOG) 1 VIAL SQ SCH ×3 (06:48→16:35)
[2021-12-26] MEDS: DOCUSATE SODIUM 100 MG CAPSULE (FP) PO SCH (09:05)
[2021-12-26] MEDS: POLYETHYLENE GLYCOL (HEALTHYLAX) 3350 17 GM PACKET PO SCH (09:05)
[2021-12-26] MEDS: amLODIPine BESYLATE 5 MG TABLET (FP) PO SCH (09:06)
[2021-12-26] MEDS: GABAPENTIN 300 MG CAPSULE PO SCH (09:06)
[2021-12-26] MEDS: LOSARTAN POTASSIUM 50 MG TABLET PO SCH (09:06)
[2021-12-26] MEDS: ASPIRIN 81 MG CHEWABLE TABLETS PO SCH (09:06)
[2021-12-26] MEDS ORDERED: INSULIN (NOVOLOG) ASPART 100 UNITS/ML 10ML VIAL ONE (10:54)
[2021-12-26 15:48] VITALS: BP 131/79; PULSE 100; TEMP 98.6
== END 2021-12-26 18:59 | DRG 305 ==
LOC: JASUSAT 04:55 → J6S 17:11 → JASUSAT 12-19 15:55 → J6S 12-19 15:56
PROVIDERS: ADMIT Internal Medicine; ATTEND Internal Medicine
PROC: 0Y6W0Z0 Detachment at Left 4th Toe, Complete, Open Approach (ICD-10-PCS; 2021-12-18)
PROC: 0Y6Y0Z0 Detachment at Left 5th Toe, Complete, Open Approach (ICD-10-PCS; 2021-12-18)
PROC: 0Y6U0Z0 Detachment at Left 3rd Toe, Complete, Open Approach (ICD-10-PCS; 2021-12-18)
PROC: 0Y6J0Z2 Detachment at Left Lower Leg, Mid, Open Approach (ICD-10-PCS; principal; 2021-12-23 16:00)
DX: E11.52 Type 2 diabetes mellitus with diabetic peripheral angiopathy with gangrene (principal); N17.9 Acute kidney failure, unspecified; E11.22 Type 2 diabetes mellitus with diabetic chronic kidney disease; E11.40 Type 2 diabetes mellitus with diabetic neuropathy, unspecified; I96 Gangrene, not elsewhere classified; E11.621 Type 2 diabetes mellitus with foot ulcer; E66.01 Morbid (severe) obesity due to excess calories; Z68.41 Body mass index [BMI] 40.0-44.9, adult; E78.5 Hyperlipidemia, unspecified; I12.9 Hypertensive chronic kidney disease with stage 1 through stage 4 chronic kidney disease, or unspecified chronic kidney disease; I25.10 Atherosclerotic heart disease of native coronary artery without angina pectoris; L97.209 Non-pressure chronic ulcer of unspecified calf with unspecified severity; L97.509 Non-pressure chronic ulcer of other part of unspecified foot with unspecified severity; N18.9 Chronic kidney disease, unspecified; E11.69 Type 2 diabetes mellitus with other specified complication; M86.172 Other acute osteomyelitis, left ankle and foot; E11.65 Type 2 diabetes mellitus with hyperglycemia
CPT/HCPCS: 36415; 80048; 80053; 82962; 85025; 85610; 85730; 86850; 86900; 86901; 86922; 88305-TC; 88307-TC; 88311-TC; 94760; 97116-GP; 97162-GP; J1644

== ENCOUNTER 2023-05-07 14:16 | Inpatient (IN) | payer OTHER ==
[2023-05-07] MEDS ORDERED: CEFEPIME HCL 1 GM VIAL (RESTRICTED TO ID) IVPB ONE (17:29)
[2023-05-07] MEDS ORDERED: VANCOMYCIN 1,000 MG in DEXTROSE 5%-WATER - 250 ML IVPB ONE (17:29)
[2023-05-07] MEDS ORDERED: ACETAMINOPHEN 1000 MG/100 ML BAG IVPB ONE (17:30)
[2023-05-07] MEDS ORDERED: CEFEPIME 1 GM/100 ML BAG IVPB ONE (17:41)
[2023-05-07] MEDS ORDERED: ACETAMINOPHEN INJECTION 100 ML IVPB ONE (17:41)
[2023-05-07 19:37] LABS: BASO % 0.7 % (0-2.0); EOS % 4.4 % (0-4.5); HEMOGLOBIN 8.3 GM/dL (11.7-16.9); LYMPH % 22.5 % (8-40); MCHC 30.8 g/dl (32.0-35.9); MEAN CELL VOLUME 74.7 fl (80-96); MEAN PLT VOLUME 6.7 fl (7.5-11.1); NEUT % 64.4 % (42.8-82.8); PLATELET COUNT 522 10^3/uL (134-434); RBC 3.61 M/mm3 (4.00-5.60); RDW 19.2 % (11.9-15.9); WHITE BLOOD COUNT 16.7 K/mm3 (4.0-10.0)
[2023-05-07 19:47] LABS: INR 1.39 (0.83-1.09); PROTHROMBIN TIME (PATIENT) 16.1 SEC (9.7-13.0)
[2023-05-07 19:50] LABS: ACTIVATED PTT 27.9 SECONDS (25.2-36.5)
[2023-05-07 19:55] LABS: POTASSIUM 4.4 mmol/L (3.5-5.1)
[2023-05-07 20:01] LABS: CALCIUM 8.1 mg/dL (8.5-10.1)
[2023-05-07 20:02] LABS: ALBUMIN 2.1 g/dl (3.4-5.0); BLOOD UREA NITROGEN 33.5 mg/dL (7-18)
[2023-05-07 20:05] LABS: CREATININE 2.1 mg/dL (0.55-1.3)
[2023-05-07 20:07] LABS: TOT PROT 7.4 g/dl (6.4-8.2)
[2023-05-07 20:12] LABS: BILIRUBIN,TOTAL 0.2 mg/dL (0.2-1)
[2023-05-07] MEDS ORDERED: VANCOMYCIN 1 GRAM (PRE-DOCKED) 1,000 MG/250 ML BAG IVPB ONE (20:19)
[2023-05-08] MEDS ORDERED: ACETAMINOPHEN 325 MG TABLET (FP) PO PRN ×2 (01:34→02:23)
[2023-05-08] MEDS: INSULIN SLIDING SCALE (NOVOLOG) 1 VIAL SQ SCH ×4 (07:15→22:58)
[2023-05-08] MEDS ORDERED: VANCOMYCIN/WATER FOR INJ (PEG) 1 GM/200 ML BAG IVPB SCH (08:00)
[2023-05-08 08:25] VITALS: BMI 38.7
[2023-05-08 09:23] LABS: BASO % 0.4 % (0-2.0); EOS % 5.3 % (0-4.5); HEMATOCRIT 25.8 % (35.4-49); HEMOGLOBIN 7.9 GM/dL (11.7-16.9); LYMPH % 23.3 % (8-40); MCHC 30.5 g/dl (32.0-35.9); MEAN CELL VOLUME 75.4 fl (80-96); MEAN PLT VOLUME 6.8 fl (7.5-11.1); MONO % 8.9 % (3.8-10.2); NEUT % 62.1 % (42.8-82.8); PLATELET COUNT 479 10^3/uL (134-434); RBC 3.42 M/mm3 (4.00-5.60); RDW 18.8 % (11.9-15.9); WHITE BLOOD COUNT 12.3 K/mm3 (4.0-10.0)
[2023-05-08 09:48] LABS: POTASSIUM 4.3 mmol/L (3.5-5.1)
[2023-05-08 09:52] LABS: BLOOD UREA NITROGEN 29.3 mg/dL (7-18)
[2023-05-08 09:55] LABS: CREATININE 1.9 mg/dL (0.55-1.3)
[2023-05-08 09:57] LABS: BILIRUBIN,TOTAL 0.2 mg/dL (0.2-1); TOT PROT 6.8 g/dl (6.4-8.2)
[2023-05-08] MEDS ORDERED: ASPIRIN 81 MG CHEWABLE TABLETS PO SCH (10:00)
[2023-05-08] MEDS ORDERED: amLODIPine BESYLATE 5 MG TABLET (FP) PO SCH (10:00)
[2023-05-08] MEDS ORDERED: GABAPENTIN 300 MG CAPSULE PO SCH (10:00)
[2023-05-08] MEDS ORDERED: APIXABAN 5 MG TABLET PO SCH (10:00)
[2023-05-08] MEDS ORDERED: PIPERACILLIN/TAZOB 3.375 GM 3.375 GM in DEXTROSE 5%-WATER - 50 ML IVPB SCH ×2 (10:00→18:00)
[2023-05-08] MEDS ORDERED: LOSARTAN POTASSIUM 50 MG TABLET PO SCH (10:00)
[2023-05-08] MEDS ORDERED: oxyCODONE HCL 5 MG TABLET PO PRN (11:42)
[2023-05-08] MEDS: PIPERACILLIN/TAZOB 3.375 GM 3.375 GM in DEXTROSE 5%-WATER - 50 ML IVPB SCH (11:52)
[2023-05-08] MEDS ORDERED: INSULIN (NOVOLOG) ASPART 100 UNITS/ML 10ML VIAL ONE ×2 (12:28→22:54)
[2023-05-08] MEDS ORDERED: VANCOMYCIN/WATER FOR INJ (PEG) 1,000 MG/200 ML BAG IVPB SCH ×2 (16:00→22:00)
[2023-05-08] MEDS ORDERED: MIDAZOLAM HCL 2 MG/2 ML SINGLE DOSE VIAL ONE (18:22)
[2023-05-08] MEDS ORDERED: PROPOFOL 20 ML ONE ×3 (18:22→19:03)
[2023-05-08] MEDS ORDERED: PIPERACILLIN/TAZOBACTAM 3.375 GM VIAL IVPB ONE (18:57)
[2023-05-08] MEDS ORDERED: SUCCINYLCHOLINE CHLORIDE 200 MG/10 ML SYRINGE ONE (19:04)
[2023-05-08] MEDS ORDERED: ONDANSETRON 4 MG/2 ML VIAL IVPUSH PRN (19:40)
[2023-05-08] MEDS: LACTATED RINGERS SOLUTION 1,000 ML IV SCH (20:35)
[2023-05-08] MEDS ORDERED: ATORVASTATIN CA 20 MG TABLET (FP) PO SCH (22:00)
[2023-05-08] MEDS: ACETAMINOPHEN 325 MG TABLET (FP) PO PRN (22:45)
[2023-05-08] MEDS: GABAPENTIN 300 MG CAPSULE PO SCH (22:47)
[2023-05-08] MEDS: ATORVASTATIN CA 20 MG TABLET (FP) PO SCH (22:49)
[2023-05-09] MEDS ORDERED: PIPERACILLIN/TAZOB 3.375 GM 3.375 GM in DEXTROSE 5%-WATER - 50 ML IVPB SCH ×2 (02:00→10:00)
[2023-05-09] MEDS: oxyCODONE HCL 5 MG TABLET PO PRN ×2 (03:08→10:03)
[2023-05-09] MEDS: PIPERACILLIN/TAZOB 3.375 GM 3.375 GM in DEXTROSE 5%-WATER - 50 ML IVPB SCH ×4 (03:09→17:22)
[2023-05-09] MEDS: VANCOMYCIN/WATER FOR INJ (PEG) 1,000 MG/200 ML BAG IVPB SCH ×2 (03:14→16:26)
[2023-05-09] MEDS: HEPARIN NA (PORCINE) 5,000 UNITS/ML 1ML VIAL SQ SCH ×3 (06:06→21:41)
[2023-05-09] MEDS: INSULIN SLIDING SCALE (NOVOLOG) 1 VIAL SQ SCH ×4 (06:06→21:53)
[2023-05-09 09:50] LABS: BASO % 1.2 % (0-2.0); HEMATOCRIT 24.6 % (35.4-49); HEMOGLOBIN 7.7 GM/dL (11.7-16.9); LYMPH % 25.5 % (8-40); MCH 23.5 pg (25.7-33.7); MCHC 31.1 g/dl (32.0-35.9); MEAN CELL VOLUME 75.4 fl (80-96); MEAN PLT VOLUME 6.9 fl (7.5-11.1); MONO % 6.6 % (3.8-10.2); NEUT % 60.7 % (42.8-82.8); PLATELET COUNT 498 10^3/uL (134-434); RBC 3.26 M/mm3 (4.00-5.60); RDW 19.2 % (11.9-15.9); WHITE BLOOD COUNT 12.9 K/mm3 (4.0-10.0)
[2023-05-09] MEDS: ASPIRIN 81 MG CHEWABLE TABLETS PO SCH (09:57)
[2023-05-09] MEDS: GABAPENTIN 300 MG CAPSULE PO SCH ×2 (09:57→21:41)
[2023-05-09] MEDS: LOSARTAN POTASSIUM 50 MG TABLET PO SCH (09:57)
[2023-05-09] MEDS: amLODIPine BESYLATE 5 MG TABLET (FP) PO SCH (09:57)
[2023-05-09] MEDS: VANCOMYCIN 1 GM PREMIX - 1 GM/200 ML BAG IVPB SCH (10:56)
[2023-05-09] MEDS ORDERED: INSULIN (NOVOLOG) ASPART 100 UNITS/ML 10ML VIAL ONE ×3 (11:29→21:52)
[2023-05-09] MEDS: ATORVASTATIN CA 20 MG TABLET (FP) PO SCH (21:41)
[2023-05-09] MEDS: LACTATED RINGERS SOLUTION 1,000 ML IV SCH (21:42)
[2023-05-10] MEDS: PIPERACILLIN/TAZOB 3.375 GM 3.375 GM in DEXTROSE 5%-WATER - 50 ML IVPB SCH ×3 (01:30→19:46)
[2023-05-10] MEDS: VANCOMYCIN/WATER FOR INJ (PEG) 1,000 MG/200 ML BAG IVPB SCH ×2 (03:35→17:10)
[2023-05-10] MEDS: oxyCODONE HCL 5 MG TABLET PO PRN ×2 (03:35→18:29)
[2023-05-10] MEDS: INSULIN SLIDING SCALE (NOVOLOG) 1 VIAL SQ SCH ×4 (06:36→21:36)
[2023-05-10] MEDS: HEPARIN NA (PORCINE) 5,000 UNITS/ML 1ML VIAL SQ SCH ×3 (06:36→21:36)
[2023-05-10 09:02] LABS: BASO % 1.1 % (0-2.0); EOS % 6.5 % (0-4.5); HEMATOCRIT 25.1 % (35.4-49); HEMOGLOBIN 7.8 GM/dL (11.7-16.9); LYMPH % 25.7 % (8-40); MCH 23.3 pg (25.7-33.7); MCHC 31.2 g/dl (32.0-35.9); MEAN CELL VOLUME 74.8 fl (80-96); MEAN PLT VOLUME 6.5 fl (7.5-11.1); MONO % 8.2 % (3.8-10.2); NEUT % 58.5 % (42.8-82.8); PLATELET COUNT 488 10^3/uL (134-434); RBC 3.35 M/mm3 (4.00-5.60); RDW 18.8 % (11.9-15.9); WHITE BLOOD COUNT 10.9 K/mm3 (4.0-10.0)
[2023-05-10 09:32] LABS: POTASSIUM 4.9 mmol/L (3.5-5.1)
[2023-05-10 09:35] LABS: CALCIUM 8.2 mg/dL (8.5-10.1)
[2023-05-10 09:36] LABS: BLOOD UREA NITROGEN 20.2 mg/dL (7-18)
[2023-05-10 09:39] LABS: CREATININE 1.9 mg/dL (0.55-1.3)
[2023-05-10] MEDS: LACTATED RINGERS SOLUTION 1,000 ML IV SCH ×2 (11:36→19:54)
[2023-05-10] MEDS: ASPIRIN 81 MG CHEWABLE TABLETS PO SCH (11:43)
[2023-05-10] MEDS: LOSARTAN POTASSIUM 50 MG TABLET PO SCH (11:43)
[2023-05-10] MEDS: amLODIPine BESYLATE 5 MG TABLET (FP) PO SCH (11:43)
[2023-05-10] MEDS: GABAPENTIN 300 MG CAPSULE PO SCH ×2 (11:43→21:36)
[2023-05-10] MEDS ORDERED: INSULIN (NOVOLOG) ASPART 100 UNITS/ML 10ML VIAL ONE ×3 (12:37→21:29)
[2023-05-10] MEDS: ATORVASTATIN CA 20 MG TABLET (FP) PO SCH (21:36)
[2023-05-11] MEDS: PIPERACILLIN/TAZOB 3.375 GM 3.375 GM in DEXTROSE 5%-WATER - 50 ML IVPB SCH ×2 (01:45→11:02)
[2023-05-11] MEDS: oxyCODONE HCL 5 MG TABLET PO PRN ×2 (02:33→21:35)
[2023-05-11] MEDS: VANCOMYCIN/WATER FOR INJ (PEG) 1,000 MG/200 ML BAG IVPB SCH (03:03)
[2023-05-11] MEDS: HEPARIN NA (PORCINE) 5,000 UNITS/ML 1ML VIAL SQ SCH ×3 (06:00→21:34)
[2023-05-11] MEDS: LACTATED RINGERS SOLUTION 1,000 ML IV SCH (06:04)
[2023-05-11] MEDS: INSULIN SLIDING SCALE (NOVOLOG) 1 VIAL SQ SCH ×4 (06:37→21:39)
[2023-05-11] MEDS: amLODIPine BESYLATE 5 MG TABLET (FP) PO SCH (11:01)
[2023-05-11] MEDS: ASPIRIN 81 MG CHEWABLE TABLETS PO SCH (11:01)
[2023-05-11] MEDS: LOSARTAN POTASSIUM 50 MG TABLET PO SCH (11:01)
[2023-05-11] MEDS: GABAPENTIN 300 MG CAPSULE PO SCH ×2 (11:02→21:34)
[2023-05-11] MEDS ORDERED: DAPTOMYCIN 1,000 MG in SODIUM CHLORIDE 50 ML IVPB SCH (11:45)
[2023-05-11 12:03] LABS: POTASSIUM 4.9 mmol/L (3.5-5.1)
[2023-05-11 12:07] LABS: BLOOD UREA NITROGEN 19.6 mg/dL (7-18); CALCIUM 8.4 mg/dL (8.5-10.1)
[2023-05-11 12:12] LABS: BILIRUBIN,TOTAL 0.2 mg/dL (0.2-1); TOT PROT 7.1 g/dl (6.4-8.2)
[2023-05-11] MEDS: SODIUM HYPOCHLORITE 0.25%- 473 ML BULK BOTTLE TP SCH (12:51)
[2023-05-11] MEDS: DAPTOMYCIN 1,000 MG in SODIUM CHLORIDE 100 ML IVPB SCH (12:51)
[2023-05-11] MEDS: POLYETHYLENE GLYCOL (HEALTHYLAX) 3350 17 GM PACKET PO SCH (16:59)
[2023-05-11] MEDS ORDERED: INSULIN (NOVOLOG) ASPART 100 UNITS/ML 10ML VIAL ONE (21:30)
[2023-05-11] MEDS: SENNOSIDES 8.8 MG/5 ML SYRUP PO SCH (22:52)
[2023-05-12] MEDS ORDERED: INSULIN (NOVOLOG) ASPART 100 UNITS/ML 10ML VIAL ONE ×2 (05:28→22:12)
[2023-05-12] MEDS: INSULIN SLIDING SCALE (NOVOLOG) 1 VIAL SQ SCH ×4 (06:00→22:14)
[2023-05-12] MEDS: oxyCODONE HCL 5 MG TABLET PO PRN ×2 (06:01→22:20)
[2023-05-12] MEDS: HEPARIN NA (PORCINE) 5,000 UNITS/ML 1ML VIAL SQ SCH ×2 (06:01→15:10)
[2023-05-12] MEDS: GABAPENTIN 300 MG CAPSULE PO SCH ×2 (09:35→22:15)
[2023-05-12] MEDS: amLODIPine BESYLATE 5 MG TABLET (FP) PO SCH (09:35)
[2023-05-12] MEDS: SODIUM HYPOCHLORITE 0.25%- 473 ML BULK BOTTLE TP SCH (09:35)
[2023-05-12] MEDS: ASPIRIN 81 MG CHEWABLE TABLETS PO SCH (09:35)
[2023-05-12] MEDS: LOSARTAN POTASSIUM 50 MG TABLET PO SCH (09:35)
[2023-05-12 09:58] LABS: BASO % 1.1 % (0-2.0); EOS % 6.4 % (0-4.5); HEMATOCRIT 22.7 % (35.4-49); HEMOGLOBIN 7.3 GM/dL (11.7-16.9); LYMPH % 24.2 % (8-40); MCH 23.6 pg (25.7-33.7); MEAN CELL VOLUME 73.6 fl (80-96); MEAN PLT VOLUME 6.7 fl (7.5-11.1); MONO % 6.8 % (3.8-10.2); NEUT % 61.5 % (42.8-82.8); PLATELET COUNT 435 10^3/uL (134-434); RBC 3.09 M/mm3 (4.00-5.60); RDW 19.1 % (11.9-15.9); WHITE BLOOD COUNT 10.8 K/mm3 (4.0-10.0)
[2023-05-12 10:30] LABS: CALCIUM 8.6 mg/dL (8.5-10.1)
[2023-05-12 10:34] LABS: BILIRUBIN,TOTAL 0.3 mg/dL (0.2-1); CREATININE 1.6 mg/dL (0.55-1.3)
[2023-05-12] MEDS: POLYETHYLENE GLYCOL (HEALTHYLAX) 3350 17 GM PACKET PO SCH (11:28)
[2023-05-12] MEDS: DAPTOMYCIN 1,000 MG in SODIUM CHLORIDE 100 ML IVPB SCH (15:04)
[2023-05-12] MEDS: LACTATED RINGERS SOLUTION 1,000 ML IV SCH (15:05)
[2023-05-12] MEDS: SODIUM CHLORIDE 0.45% 1,000 ML IV SCH (15:05)
[2023-05-12 16:10] LABS: EPI CELLS 4 /uL (0-25.1); HYALINE CASTS 0 /uL (0-3.1); URINE APPEARANCE CLEAR; URINE BACTERIA 0 /uL (0-1359); URINE BILIRUBIN NEGATIVE (NEGATIVE); URINE COLOR YELLOW; URINE GLUCOSE (UA) 3+ (NEGATIVE); URINE KETONE NEGATIVE (NEGATIVE); URINE LEUK ESTERASE NEGATIVE (NEGATIVE); URINE NITRITE NEGATIVE (NEGATIVE); URINE PROTEIN 3+ (NEGATIVE); URINE RBC 15 /uL (0-23.9); URINE UROBILINOGEN 0.2 mg/dL (0.2-1.0); URINE WBC 4 /uL (0-25.8)
[2023-05-12] MEDS ORDERED: SENNOSIDES 8.6MG TABLET (FP) PO PRN (21:55)
[2023-05-12] MEDS: SENNOSIDES 8.8 MG/5 ML SYRUP PO SCH (22:16)
[2023-05-13] MEDS: INSULIN SLIDING SCALE (NOVOLOG) 1 VIAL SQ SCH ×4 (06:13→22:44)
[2023-05-13] MEDS: LOSARTAN POTASSIUM 50 MG TABLET PO SCH (09:50)
[2023-05-13] MEDS: amLODIPine BESYLATE 5 MG TABLET (FP) PO SCH (09:50)
[2023-05-13] MEDS: APIXABAN 5 MG TABLET PO SCH ×2 (09:50→21:46)
[2023-05-13] MEDS: GABAPENTIN 300 MG CAPSULE PO SCH ×2 (09:50→21:46)
[2023-05-13] MEDS: ASPIRIN 81 MG CHEWABLE TABLETS PO SCH (09:50)
[2023-05-13] MEDS: POLYETHYLENE GLYCOL (HEALTHYLAX) 3350 17 GM PACKET PO SCH (09:55)
[2023-05-13] MEDS: SODIUM HYPOCHLORITE 0.25%- 473 ML BULK BOTTLE TP SCH (10:09)
[2023-05-13] MEDS: SODIUM CHLORIDE 0.45% 1,000 ML IV SCH (12:02)
[2023-05-13] MEDS: DAPTOMYCIN 1,000 MG in SODIUM CHLORIDE 100 ML IVPB SCH (13:13)
[2023-05-13 14:08] LABS: ALBUMIN 2.1 g/dl (3.4-5.0); BLOOD UREA NITROGEN 17.1 mg/dL (7-18)
[2023-05-13 14:10] LABS: CALCIUM 8.7 mg/dL (8.5-10.1)
[2023-05-13 14:11] LABS: CREATININE 1.6 mg/dL (0.55-1.3)
[2023-05-13 14:12] LABS: BILIRUBIN,TOTAL 0.3 mg/dL (0.2-1)
[2023-05-13 14:13] LABS: TOT PROT 7.3 g/dl (6.4-8.2)
[2023-05-13] MEDS ORDERED: INSULIN (NOVOLOG) ASPART 100 UNITS/ML 10ML VIAL ONE ×2 (17:23→22:39)
[2023-05-13] MEDS: oxyCODONE HCL 5 MG TABLET PO PRN (21:44)
[2023-05-14] MEDS ORDERED: INSULIN (NOVOLOG) ASPART 100 UNITS/ML 10ML VIAL ONE ×4 (06:26→22:14)
[2023-05-14] MEDS: INSULIN SLIDING SCALE (NOVOLOG) 1 VIAL SQ SCH ×4 (06:33→22:27)
[2023-05-14] MEDS: LOSARTAN POTASSIUM 50 MG TABLET PO SCH (10:35)
[2023-05-14] MEDS: oxyCODONE HCL 5 MG TABLET PO PRN (10:35)
[2023-05-14] MEDS: APIXABAN 5 MG TABLET PO SCH ×2 (10:35→22:27)
[2023-05-14] MEDS: ASPIRIN 81 MG CHEWABLE TABLETS PO SCH (10:37)
[2023-05-14] MEDS: amLODIPine BESYLATE 5 MG TABLET (FP) PO SCH (10:38)
[2023-05-14] MEDS: POLYETHYLENE GLYCOL (HEALTHYLAX) 3350 17 GM PACKET PO SCH (10:38)
[2023-05-14] MEDS: GABAPENTIN 300 MG CAPSULE PO SCH ×2 (10:38→22:27)
[2023-05-14] MEDS: SODIUM CHLORIDE 0.45% 1,000 ML IV SCH (12:00)
[2023-05-14] MEDS: DAPTOMYCIN 1,000 MG in SODIUM CHLORIDE 100 ML IVPB SCH (14:11)
[2023-05-14] MEDS: SODIUM HYPOCHLORITE 0.25%- 473 ML BULK BOTTLE TP SCH (14:12)
[2023-05-15] MEDS ORDERED: INSULIN (NOVOLOG) ASPART 100 UNITS/ML 10ML VIAL ONE ×3 (06:17→22:06)
[2023-05-15] MEDS: INSULIN SLIDING SCALE (NOVOLOG) 1 VIAL SQ SCH ×4 (06:20→22:07)
[2023-05-15] MEDS: POLYETHYLENE GLYCOL (HEALTHYLAX) 3350 17 GM PACKET PO SCH (10:20)
[2023-05-15] MEDS: APIXABAN 5 MG TABLET PO SCH ×2 (10:20→22:01)
[2023-05-15] MEDS: ASPIRIN 81 MG CHEWABLE TABLETS PO SCH (10:20)
[2023-05-15] MEDS: LOSARTAN POTASSIUM 50 MG TABLET PO SCH (10:20)
[2023-05-15] MEDS: amLODIPine BESYLATE 5 MG TABLET (FP) PO SCH (10:20)
[2023-05-15] MEDS: GABAPENTIN 300 MG CAPSULE PO SCH ×2 (10:20→22:01)
[2023-05-15 13:58] LABS: POTASSIUM 4.8 mmol/L (3.5-5.1)
[2023-05-15 14:00] LABS: BLOOD UREA NITROGEN 22.4 mg/dL (7-18)
[2023-05-15 14:01] LABS: CALCIUM 8.6 mg/dL (8.5-10.1)
[2023-05-15 14:02] LABS: ALBUMIN 2.1 g/dl (3.4-5.0)
[2023-05-15 14:04] LABS: CREATININE 1.6 mg/dL (0.55-1.3)
[2023-05-15 14:06] LABS: BILIRUBIN,TOTAL 0.2 mg/dL (0.2-1); TOT PROT 7.3 g/dl (6.4-8.2)
[2023-05-15] MEDS: DAPTOMYCIN 1,000 MG in SODIUM CHLORIDE 100 ML IVPB SCH (14:31)
[2023-05-15] MEDS: SODIUM HYPOCHLORITE 0.25%- 473 ML BULK BOTTLE TP SCH (15:00)
[2023-05-15 15:01] LABS: BASO % 0.2 % (0-2.0); EOS % 5.7 % (0-4.5); HEMATOCRIT 28.6 % (35.4-49); HEMOGLOBIN 8.6 GM/dL (11.7-16.9); LYMPH % 28.2 % (8-40); MCH 22.9 pg (25.7-33.7); MCHC 30.1 g/dl (32.0-35.9); MEAN CELL VOLUME 75.9 fl (80-96); MONO % 4.7 % (3.8-10.2); NEUT % 61.2 % (42.8-82.8); PLATELET COUNT 509 10^3/uL (134-434); RBC 3.77 M/mm3 (4.00-5.60); RDW 19.4 % (11.9-15.9); WHITE BLOOD COUNT 10.3 K/mm3 (4.0-10.0)
[2023-05-15 15:20] LABS: BLOOD UREA NITROGEN 22.5 mg/dL (7-18); CALCIUM 8.9 mg/dL (8.5-10.1)
[2023-05-15 15:24] LABS: CREATININE 1.6 mg/dL (0.55-1.3)
[2023-05-16] MEDS ORDERED: INSULIN (NOVOLOG) ASPART 100 UNITS/ML 10ML VIAL ONE ×2 (06:43→11:17)
[2023-05-16] MEDS: INSULIN SLIDING SCALE (NOVOLOG) 1 VIAL SQ SCH ×4 (06:45→21:40)
[2023-05-16] MEDS: ACETAMINOPHEN 325 MG TABLET (FP) PO PRN (06:51)
[2023-05-16] MEDS: GABAPENTIN 300 MG CAPSULE PO SCH ×2 (09:46→21:50)
[2023-05-16] MEDS: LOSARTAN POTASSIUM 50 MG TABLET PO SCH (09:46)
[2023-05-16] MEDS: APIXABAN 5 MG TABLET PO SCH ×2 (09:46→21:50)
[2023-05-16] MEDS: ASPIRIN 81 MG CHEWABLE TABLETS PO SCH (09:46)
[2023-05-16] MEDS: amLODIPine BESYLATE 5 MG TABLET (FP) PO SCH (09:46)
[2023-05-16] MEDS: SODIUM HYPOCHLORITE 0.25%- 473 ML BULK BOTTLE TP SCH (09:47)
[2023-05-16] MEDS: POLYETHYLENE GLYCOL (HEALTHYLAX) 3350 17 GM PACKET PO SCH (09:50)
[2023-05-16] MEDS: DAPTOMYCIN 1,000 MG in SODIUM CHLORIDE 100 ML IVPB SCH (13:43)
[2023-05-17] MEDS: oxyCODONE HCL 5 MG TABLET PO PRN ×2 (00:25→06:28)
[2023-05-17] MEDS: INSULIN SLIDING SCALE (NOVOLOG) 1 VIAL SQ SCH ×4 (06:26→21:59)
[2023-05-17] MEDS ORDERED: INSULIN (NOVOLOG) ASPART 100 UNITS/ML 10ML VIAL ONE ×2 (06:37→21:30)
[2023-05-17] MEDS: POLYETHYLENE GLYCOL (HEALTHYLAX) 3350 17 GM PACKET PO SCH (09:50)
[2023-05-17] MEDS: GABAPENTIN 300 MG CAPSULE PO SCH ×2 (09:50→21:59)
[2023-05-17] MEDS: APIXABAN 5 MG TABLET PO SCH ×2 (09:50→21:59)
[2023-05-17] MEDS: amLODIPine BESYLATE 5 MG TABLET (FP) PO SCH (09:50)
[2023-05-17] MEDS: ASPIRIN 81 MG CHEWABLE TABLETS PO SCH (09:50)
[2023-05-17] MEDS: LOSARTAN POTASSIUM 50 MG TABLET PO SCH (09:50)
[2023-05-17 13:09] LABS: BASO % 0.7 % (0-2.0); EOS % 6.9 % (0-4.5); HEMATOCRIT 28.8 % (35.4-49); LYMPH % 32.5 % (8-40); MCH 23.1 pg (25.7-33.7); MCHC 31.1 g/dl (32.0-35.9); MEAN PLT VOLUME 6.5 fl (7.5-11.1); MONO % 7.2 % (3.8-10.2); NEUT % 52.7 % (42.8-82.8); PLATELET COUNT 504 10^3/uL (134-434); RBC 3.89 M/mm3 (4.00-5.60); RDW 19.4 % (11.9-15.9); WHITE BLOOD COUNT 9.3 K/mm3 (4.0-10.0)
[2023-05-17] MEDS: DAPTOMYCIN 1,000 MG in SODIUM CHLORIDE 100 ML IVPB SCH (14:00)
[2023-05-17] MEDS: SODIUM HYPOCHLORITE 0.25%- 473 ML BULK BOTTLE TP SCH (16:02)
[2023-05-17] MEDS ORDERED: BISACODYL 5 MG TABLET.DR (FP) PO ONE (18:43)
[2023-05-18] MEDS ORDERED: INSULIN (NOVOLOG) ASPART 100 UNITS/ML 10ML VIAL ONE ×2 (06:33→18:34)
[2023-05-18] MEDS: INSULIN SLIDING SCALE (NOVOLOG) 1 VIAL SQ SCH ×4 (06:34→23:52)
[2023-05-18] MEDS: oxyCODONE HCL 5 MG TABLET PO PRN ×2 (06:49→23:40)
[2023-05-18 09:59] LABS: BASO % 0.9 % (0-2.0); EOS % 5.3 % (0-4.5); HEMATOCRIT 28.3 % (35.4-49); HEMOGLOBIN 8.8 GM/dL (11.7-16.9); LYMPH % 25.5 % (8-40); MCH 23.3 pg (25.7-33.7); MCHC 30.9 g/dl (32.0-35.9); MEAN CELL VOLUME 75.2 fl (80-96); MONO % 6.8 % (3.8-10.2); NEUT % 61.5 % (42.8-82.8); PLATELET COUNT 486 10^3/uL (134-434); RBC 3.77 M/mm3 (4.00-5.60); RDW 20.1 % (11.9-15.9); WHITE BLOOD COUNT 11.7 K/mm3 (4.0-10.0)
[2023-05-18 10:26] LABS: POTASSIUM 5.1 mmol/L (3.5-5.1)
[2023-05-18 10:32] LABS: ALBUMIN 2.4 g/dl (3.4-5.0); BLOOD UREA NITROGEN 26.5 mg/dL (7-18); CALCIUM 8.6 mg/dL (8.5-10.1)
[2023-05-18 10:36] LABS: CREATININE 1.7 mg/dL (0.55-1.3); TOT PROT 7.5 g/dl (6.4-8.2)
[2023-05-18 10:37] LABS: BILIRUBIN,TOTAL 0.3 mg/dL (0.2-1)
[2023-05-18] MEDS: POLYETHYLENE GLYCOL (HEALTHYLAX) 3350 17 GM PACKET PO SCH ×2 (10:50→11:22)
[2023-05-18] MEDS: GABAPENTIN 300 MG CAPSULE PO SCH ×2 (10:50→22:43)
[2023-05-18] MEDS: LOSARTAN POTASSIUM 50 MG TABLET PO SCH (10:51)
[2023-05-18] MEDS: amLODIPine BESYLATE 5 MG TABLET (FP) PO SCH (10:51)
[2023-05-18] MEDS: ASPIRIN 81 MG CHEWABLE TABLETS PO SCH (10:51)
[2023-05-18] MEDS: APIXABAN 5 MG TABLET PO SCH ×2 (10:51→22:43)
[2023-05-18] MEDS: SODIUM HYPOCHLORITE 0.25%- 473 ML BULK BOTTLE TP SCH (10:56)
[2023-05-18] MEDS ORDERED: LORazepam 0.5 MG TABLET PO ONE (13:45)
[2023-05-18] MEDS: DAPTOMYCIN 1,000 MG in SODIUM CHLORIDE 100 ML IVPB SCH (14:53)
[2023-05-19] MEDS: INSULIN SLIDING SCALE (NOVOLOG) 1 VIAL SQ SCH ×4 (07:37→23:46)
[2023-05-19] MEDS: ASPIRIN 81 MG CHEWABLE TABLETS PO SCH (09:16)
[2023-05-19] MEDS: LOSARTAN POTASSIUM 50 MG TABLET PO SCH (09:17)
[2023-05-19] MEDS: GABAPENTIN 300 MG CAPSULE PO SCH ×2 (09:17→22:24)
[2023-05-19] MEDS: amLODIPine BESYLATE 5 MG TABLET (FP) PO SCH (09:17)
[2023-05-19] MEDS: POLYETHYLENE GLYCOL (HEALTHYLAX) 3350 17 GM PACKET PO SCH (09:18)
[2023-05-19] MEDS: SODIUM HYPOCHLORITE 0.25%- 473 ML BULK BOTTLE TP SCH (09:22)
[2023-05-19] MEDS ORDERED: INSULIN (NOVOLOG) ASPART 100 UNITS/ML 10ML VIAL ONE ×3 (11:11→23:33)
[2023-05-19] MEDS: HEPARIN NA (PORCINE) 5,000 UNITS/ML 1ML VIAL SQ SCH ×2 (13:15→22:24)
[2023-05-19] MEDS: DAPTOMYCIN 1,000 MG in SODIUM CHLORIDE 100 ML IVPB SCH (13:16)
[2023-05-20] MEDS: HEPARIN NA (PORCINE) 5,000 UNITS/ML 1ML VIAL SQ SCH ×2 (06:09→23:52)
[2023-05-20] MEDS: INSULIN SLIDING SCALE (NOVOLOG) 1 VIAL SQ SCH ×3 (06:57→16:36)
[2023-05-20] MEDS: LOSARTAN POTASSIUM 50 MG TABLET PO SCH (09:53)
[2023-05-20] MEDS: GABAPENTIN 300 MG CAPSULE PO SCH ×2 (09:53→23:51)
[2023-05-20] MEDS: amLODIPine BESYLATE 5 MG TABLET (FP) PO SCH (09:53)
[2023-05-20] MEDS: POLYETHYLENE GLYCOL (HEALTHYLAX) 3350 17 GM PACKET PO SCH (11:00)
[2023-05-20] MEDS: ASPIRIN 81 MG CHEWABLE TABLETS PO SCH (11:00)
[2023-05-20] MEDS ORDERED: INSULIN (NOVOLOG) ASPART 100 UNITS/ML 10ML VIAL ONE ×3 (11:10→22:25)
[2023-05-20] MEDS ORDERED: VANCOMYCIN 1,000 MG VIAL (RESTRICTED TO ID ONLY) ONE (12:04)
[2023-05-20] MEDS ORDERED: LIDOCAINE HCL 1%, 10 MG/ML (20ML VIAL) ONE (12:04)
[2023-05-20] MEDS ORDERED: BUPIVACAINE HCL/PF 0.5% (5MG/ML) 10 ML VIAL ONE (12:16)
[2023-05-20] MEDS ORDERED: MIDAZOLAM HCL 2 MG/2 ML SINGLE DOSE VIAL ONE ×2 (12:25→12:32)
[2023-05-20] MEDS ORDERED: PROPOFOL 40 ML ONE (12:25)
[2023-05-20] MEDS: SODIUM HYPOCHLORITE 0.25%- 473 ML BULK BOTTLE TP SCH (13:07)
[2023-05-20] MEDS ORDERED: ONDANSETRON 4 MG/2 ML VIAL IVPB PRN ×2 (13:22→13:35)
[2023-05-20] MEDS ORDERED: LACTATED RINGERS SOLUTION 1,000 ML IV SCH ×2 (13:30→14:30)
[2023-05-20] MEDS ORDERED: SENNOSIDES 8.6MG TABLET (FP) PO PRN (13:35)
[2023-05-20] MEDS ORDERED: HEPARIN NA (PORCINE) 5,000 UNITS/ML 1ML VIAL SQ SCH (14:00)
[2023-05-20] MEDS ORDERED: oxyCODONE HCL 5 MG TABLET ONE (14:21)
[2023-05-20] MEDS: oxyCODONE HCL 5 MG TABLET PO PRN ×2 (14:22→23:51)
[2023-05-20] MEDS: DAPTOMYCIN 1,000 MG in SODIUM CHLORIDE 100 ML IVPB SCH ×2 (15:45→15:46)
[2023-05-20] MEDS: APIXABAN 5 MG TABLET PO SCH (23:51)
[2023-05-21] MEDS: INSULIN SLIDING SCALE (NOVOLOG) 1 VIAL SQ SCH ×5 (00:20→22:11)
[2023-05-21] MEDS: HEPARIN NA (PORCINE) 5,000 UNITS/ML 1ML VIAL SQ SCH (06:57)
[2023-05-21 08:14] LABS: BASO % 1.1 % (0-2.0); EOS % 6.3 % (0-4.5); HEMATOCRIT 27.1 % (35.4-49); HEMOGLOBIN 8.6 GM/dL (11.7-16.9); LYMPH % 31.9 % (8-40); MCH 23.2 pg (25.7-33.7); MCHC 31.6 g/dl (32.0-35.9); MEAN CELL VOLUME 73.4 fl (80-96); MEAN PLT VOLUME 7.3 fl (7.5-11.1); MONO % 7.8 % (3.8-10.2); NEUT % 52.9 % (42.8-82.8); PLATELET COUNT 407 10^3/uL (134-434); RBC 3.69 M/mm3 (4.00-5.60); RDW 20.4 % (11.9-15.9); WHITE BLOOD COUNT 8.5 K/mm3 (4.0-10.0)
[2023-05-21 08:31] LABS: POTASSIUM 4.8 mmol/L (3.5-5.1)
[2023-05-21 08:34] LABS: ALBUMIN 2.2 g/dl (3.4-5.0)
[2023-05-21 08:35] LABS: CALCIUM 8.4 mg/dL (8.5-10.1)
[2023-05-21 08:36] LABS: BLOOD UREA NITROGEN 27.6 mg/dL (7-18)
[2023-05-21 08:37] LABS: CREATININE 1.7 mg/dL (0.55-1.3)
[2023-05-21 08:39] LABS: BILIRUBIN,TOTAL 0.4 mg/dL (0.2-1)
[2023-05-21 08:41] LABS: TOT PROT 6.9 g/dl (6.4-8.2)
[2023-05-21] MEDS: amLODIPine BESYLATE 5 MG TABLET (FP) PO SCH (09:34)
[2023-05-21] MEDS: APIXABAN 5 MG TABLET PO SCH ×2 (09:34→22:11)
[2023-05-21] MEDS: ASPIRIN 81 MG CHEWABLE TABLETS PO SCH (09:34)
[2023-05-21] MEDS: GABAPENTIN 300 MG CAPSULE PO SCH ×2 (09:35→22:10)
[2023-05-21] MEDS: LOSARTAN POTASSIUM 50 MG TABLET PO SCH (09:35)
[2023-05-21] MEDS: POLYETHYLENE GLYCOL (HEALTHYLAX) 3350 17 GM PACKET PO SCH (09:37)
[2023-05-21] MEDS: oxyCODONE HCL 5 MG TABLET PO PRN (10:43)
[2023-05-21] MEDS ORDERED: INSULIN (NOVOLOG) ASPART 100 UNITS/ML 10ML VIAL ONE ×3 (11:04→21:27)
[2023-05-21] MEDS ORDERED: DAPTOMYCIN 1,000 MG in SODIUM CHLORIDE 100 ML IVPB SCH (13:00)
[2023-05-21] MEDS: DAPTOMYCIN 1,000 MG in SODIUM CHLORIDE 100 ML IVPB SCH (14:23)
[2023-05-21] MEDS: AMINO ACIDS/PROTEIN HYDROLYS 30 ML LIQUID.PKT PO SCH (17:14)
[2023-05-22] MEDS: oxyCODONE HCL 5 MG TABLET PO PRN (00:33)
[2023-05-22] MEDS ORDERED: INSULIN (NOVOLOG) ASPART 100 UNITS/ML 10ML VIAL ONE ×2 (06:32→21:45)
[2023-05-22] MEDS: INSULIN SLIDING SCALE (NOVOLOG) 1 VIAL SQ SCH ×4 (06:33→22:04)
[2023-05-22] MEDS: MULTIVITAMINS (DAILY MVI) TABLET (FP) PO SCH (09:26)
[2023-05-22] MEDS: ASPIRIN 81 MG CHEWABLE TABLETS PO SCH (09:26)
[2023-05-22] MEDS: POLYETHYLENE GLYCOL (HEALTHYLAX) 3350 17 GM PACKET PO SCH ×2 (09:26→09:32)
[2023-05-22] MEDS: APIXABAN 5 MG TABLET PO SCH ×2 (09:26→22:04)
[2023-05-22] MEDS: LOSARTAN POTASSIUM 50 MG TABLET PO SCH (09:26)
[2023-05-22] MEDS: GABAPENTIN 300 MG CAPSULE PO SCH ×2 (09:26→22:04)
[2023-05-22] MEDS: amLODIPine BESYLATE 5 MG TABLET (FP) PO SCH (09:26)
[2023-05-22] MEDS: AMINO ACIDS/PROTEIN HYDROLYS 30 ML LIQUID.PKT PO SCH ×2 (09:27→17:24)
[2023-05-22] MEDS: DAPTOMYCIN 1,000 MG in SODIUM CHLORIDE 100 ML IVPB SCH (14:41)
[2023-05-23] MEDS ORDERED: INSULIN (NOVOLOG) ASPART 100 UNITS/ML 10ML VIAL ONE ×4 (06:24→21:05)
[2023-05-23] MEDS: INSULIN SLIDING SCALE (NOVOLOG) 1 VIAL SQ SCH ×4 (06:36→21:39)
[2023-05-23] MEDS: LOSARTAN POTASSIUM 50 MG TABLET PO SCH (09:21)
[2023-05-23] MEDS: MULTIVITAMINS (DAILY MVI) TABLET (FP) PO SCH (09:21)
[2023-05-23] MEDS: amLODIPine BESYLATE 5 MG TABLET (FP) PO SCH (09:22)
[2023-05-23] MEDS: ASPIRIN 81 MG CHEWABLE TABLETS PO SCH (09:22)
[2023-05-23] MEDS: APIXABAN 5 MG TABLET PO SCH ×2 (09:22→21:39)
[2023-05-23] MEDS: GABAPENTIN 300 MG CAPSULE PO SCH ×2 (09:22→21:39)
[2023-05-23] MEDS: AMINO ACIDS/PROTEIN HYDROLYS 30 ML LIQUID.PKT PO SCH ×2 (09:22→17:20)
[2023-05-23] MEDS: POLYETHYLENE GLYCOL (HEALTHYLAX) 3350 17 GM PACKET PO SCH (09:26)
[2023-05-23 09:48] LABS: POTASSIUM 4.7 mmol/L (3.5-5.1)
[2023-05-23 09:53] LABS: ALBUMIN 2.3 g/dl (3.4-5.0); BLOOD UREA NITROGEN 32.1 mg/dL (7-18); CALCIUM 8.7 mg/dL (8.5-10.1)
[2023-05-23 09:56] LABS: CREATININE 1.7 mg/dL (0.55-1.3)
[2023-05-23 09:57] LABS: BILIRUBIN,TOTAL 0.3 mg/dL (0.2-1); TOT PROT 7.6 g/dl (6.4-8.2)
[2023-05-23] MEDS: DAPTOMYCIN 1,000 MG in SODIUM CHLORIDE 100 ML IVPB SCH (14:19)
[2023-05-24] MEDS: ACETAMINOPHEN 500 MG TABLET (FP) PO PRN ×3 (00:34→22:24)
[2023-05-24] MEDS: INSULIN SLIDING SCALE (NOVOLOG) 1 VIAL SQ SCH ×4 (06:45→22:25)
[2023-05-24] MEDS: GABAPENTIN 300 MG CAPSULE PO SCH ×2 (09:19→22:24)
[2023-05-24] MEDS: amLODIPine BESYLATE 5 MG TABLET (FP) PO SCH (09:19)
[2023-05-24] MEDS: MULTIVITAMINS (DAILY MVI) TABLET (FP) PO SCH (09:19)
[2023-05-24] MEDS: LOSARTAN POTASSIUM 50 MG TABLET PO SCH (09:19)
[2023-05-24] MEDS: APIXABAN 5 MG TABLET PO SCH ×2 (09:19→22:24)
[2023-05-24] MEDS: AMINO ACIDS/PROTEIN HYDROLYS 30 ML LIQUID.PKT PO SCH ×2 (09:20→17:05)
[2023-05-24] MEDS: ASPIRIN 81 MG CHEWABLE TABLETS PO SCH (09:20)
[2023-05-24] MEDS: POLYETHYLENE GLYCOL (HEALTHYLAX) 3350 17 GM PACKET PO SCH ×2 (09:20→12:29)
[2023-05-24] MEDS: DAPTOMYCIN 1,000 MG in SODIUM CHLORIDE 100 ML IVPB SCH (13:43)
[2023-05-25] MEDS: INSULIN SLIDING SCALE (NOVOLOG) 1 VIAL SQ SCH ×4 (07:29→22:03)
[2023-05-25] MEDS: AMINO ACIDS/PROTEIN HYDROLYS 30 ML LIQUID.PKT PO SCH ×2 (08:26→17:43)
[2023-05-25] MEDS: LOSARTAN POTASSIUM 50 MG TABLET PO SCH (10:18)
[2023-05-25] MEDS: amLODIPine BESYLATE 5 MG TABLET (FP) PO SCH (10:18)
[2023-05-25] MEDS: GABAPENTIN 300 MG CAPSULE PO SCH ×2 (10:18→22:01)
[2023-05-25] MEDS: POLYETHYLENE GLYCOL (HEALTHYLAX) 3350 17 GM PACKET PO SCH ×2 (10:18→10:24)
[2023-05-25] MEDS: MULTIVITAMINS (DAILY MVI) TABLET (FP) PO SCH (10:18)
[2023-05-25] MEDS: ASPIRIN 81 MG CHEWABLE TABLETS PO SCH (10:19)
[2023-05-25] MEDS: APIXABAN 5 MG TABLET PO SCH ×2 (10:19→22:01)
[2023-05-25] MEDS: ACETAMINOPHEN 500 MG TABLET (FP) PO PRN ×2 (10:28→22:01)
[2023-05-25] MEDS: DAPTOMYCIN 1,000 MG in SODIUM CHLORIDE 100 ML IVPB SCH (13:14)
[2023-05-25] MEDS ORDERED: INSULIN (NOVOLOG) ASPART 100 UNITS/ML 10ML VIAL ONE ×2 (17:18→21:58)
[2023-05-26] MEDS: INSULIN SLIDING SCALE (NOVOLOG) 1 VIAL SQ SCH ×4 (06:25→22:42)
[2023-05-26] MEDS: ACETAMINOPHEN 500 MG TABLET (FP) PO PRN ×2 (06:27→20:52)
[2023-05-26] MEDS: AMINO ACIDS/PROTEIN HYDROLYS 30 ML LIQUID.PKT PO SCH ×2 (08:30→17:27)
[2023-05-26] MEDS: LOSARTAN POTASSIUM 50 MG TABLET PO SCH (09:39)
[2023-05-26] MEDS: POLYETHYLENE GLYCOL (HEALTHYLAX) 3350 17 GM PACKET PO SCH (09:39)
[2023-05-26] MEDS: ASPIRIN 81 MG CHEWABLE TABLETS PO SCH (09:39)
[2023-05-26] MEDS: MULTIVITAMINS (DAILY MVI) TABLET (FP) PO SCH (09:39)
[2023-05-26] MEDS: GABAPENTIN 300 MG CAPSULE PO SCH ×2 (09:39→22:41)
[2023-05-26] MEDS: APIXABAN 5 MG TABLET PO SCH ×2 (09:40→22:41)
[2023-05-26] MEDS: amLODIPine BESYLATE 5 MG TABLET (FP) PO SCH (09:40)
[2023-05-26] MEDS ORDERED: INSULIN (NOVOLOG) ASPART 100 UNITS/ML 10ML VIAL ONE ×2 (11:43→17:25)
[2023-05-26 22:35] VITALS: RESP 20
[2023-05-26] MEDS: LINEZOLID 600 MG TABLET (RESTRICTED TO ID) PO SCH (22:46)
[2023-05-27] MEDS: INSULIN SLIDING SCALE (NOVOLOG) 1 VIAL SQ SCH ×2 (06:44→12:19)
[2023-05-27 07:48] VITALS: BP 120/63; PULSE 77; TEMP 98
[2023-05-27] MEDS: GABAPENTIN 300 MG CAPSULE PO SCH (09:01)
[2023-05-27] MEDS: POLYETHYLENE GLYCOL (HEALTHYLAX) 3350 17 GM PACKET PO SCH ×2 (09:01→09:09)
[2023-05-27] MEDS: ASPIRIN 81 MG CHEWABLE TABLETS PO SCH (09:01)
[2023-05-27] MEDS: AMINO ACIDS/PROTEIN HYDROLYS 30 ML LIQUID.PKT PO SCH (09:01)
[2023-05-27] MEDS: amLODIPine BESYLATE 5 MG TABLET (FP) PO SCH (09:02)
[2023-05-27] MEDS: LOSARTAN POTASSIUM 50 MG TABLET PO SCH (09:02)
[2023-05-27] MEDS: MULTIVITAMINS (DAILY MVI) TABLET (FP) PO SCH (09:02)
[2023-05-27] MEDS: APIXABAN 5 MG TABLET PO SCH (09:02)
[2023-05-27] MEDS: LINEZOLID 600 MG TABLET (RESTRICTED TO ID) PO SCH (10:52)
[2023-05-27] MEDS ORDERED: INSULIN (NOVOLOG) ASPART 100 UNITS/ML 10ML VIAL ONE ×2 (12:12→12:19)
== END 2023-05-27 15:33 | disposition home health service (06) | DRG 317 ==
LOC: JER 14:16 → JERBED 17:31 → J7W 05-08 00:17 → J8W 05-08 21:16
PROVIDERS: ADMIT Internal Medicine; ATTEND Internal Medicine
PROC: 0JBQ0ZZ Excision of Right Foot Subcutaneous Tissue and Fascia, Open Approach (ICD-10-PCS; 2023-05-08)
PROC: 3E0102A Introduction of Anti-Infective Envelope into Subcutaneous Tissue, Open Approach (ICD-10-PCS; 2023-05-08)
PROC: 0LBV0ZZ Excision of Right Foot Tendon, Open Approach (ICD-10-PCS; principal; 2023-05-08 19:30)
DX: T87.43 Infection of amputation stump, right lower extremity (principal); L03.115 Cellulitis of right lower limb; S91.301A Unspecified open wound, right foot, initial encounter; L02.611 Cutaneous abscess of right foot; B95.7 Other staphylococcus as the cause of diseases classified elsewhere; E11.52 Type 2 diabetes mellitus with diabetic peripheral angiopathy with gangrene; I12.9 Hypertensive chronic kidney disease with stage 1 through stage 4 chronic kidney disease, or unspecified chronic kidney disease; E11.22 Type 2 diabetes mellitus with diabetic chronic kidney disease; N18.9 Chronic kidney disease, unspecified; I96 Gangrene, not elsewhere classified; I25.10 Atherosclerotic heart disease of native coronary artery without angina pectoris; E11.40 Type 2 diabetes mellitus with diabetic neuropathy, unspecified; E78.5 Hyperlipidemia, unspecified; D72.829 Elevated white blood cell count, unspecified; E66.9 Obesity, unspecified; Z68.38 Body mass index [BMI] 38.0-38.9, adult; N17.9 Acute kidney failure, unspecified; Z89.512 Acquired absence of left leg below knee; Y83.8 Other surgical procedures as the cause of abnormal reaction of the patient, or of later complication, without mention of misadventure at the time of the procedure; Z86.718 Personal history of other venous thrombosis and embolism; R80.8 Other proteinuria
CPT/HCPCS: 36415; 73590-TC-RT-FY; 73630-TC-RT-FY; 76775-TC; 80048; 80053; 81003; 82550; 82553; 82962; 83036; 83605; 85025; 85610; 85730; 86850; 86900; 86901; 87040; 87070; 87081; 87186; 87205; 88304-TC; 93005; 93010; 94760; 99285-25; G0277; G0463-25; G0480; J0878; J1644; Q4197

== ENCOUNTER 2023-07-03 09:59 | Inpatient (IN) | payer OTHER ==
[2023-07-03] MEDS ORDERED: VANCOMYCIN PREMIX 1.75 GM 1,750 MG/350 ML PIGGYBACK IVPB ONE (10:55)
[2023-07-03] MEDS ORDERED: CEFEPIME HCL 1 GM VIAL (RESTRICTED TO ID) IVPB ONE (10:56)
[2023-07-03] MEDS ORDERED: CEFEPIME 1 GM/100 ML BAG IVPB ONE (10:59)
[2023-07-03 12:01] LABS: BASO % 1.9 % (0-2.0); EOS % 5.3 % (0-4.5); HEMOGLOBIN 8.8 GM/dL (11.7-16.9); LYMPH % 21.6 % (8-40); MCH 21.5 pg (25.7-33.7); MCHC 31.3 g/dl (32.0-35.9); MEAN CELL VOLUME 68.6 fl (80-96); MEAN PLT VOLUME 6.9 fl (7.5-11.1); MONO % 7.1 % (3.8-10.2); NEUT % 64.1 % (42.8-82.8); PLATELET COUNT 479 10^3/uL (134-434); RBC 4.09 M/mm3 (4.00-5.60); RDW 19.6 % (11.9-15.9); WHITE BLOOD COUNT 13.6 K/mm3 (4.0-10.0)
[2023-07-03 12:28] LABS: CALCIUM 8.6 mg/dL (8.5-10.1); POTASSIUM 4.3 mmol/L (3.5-5.1)
[2023-07-03 12:29] LABS: ALBUMIN 2.3 g/dl (3.4-5.0); BLOOD UREA NITROGEN 37.4 mg/dL (7-18)
[2023-07-03 12:32] LABS: CREATININE 2.2 mg/dL (0.55-1.3)
[2023-07-03 12:35] LABS: TOT PROT 7.7 g/dl (6.4-8.2)
[2023-07-03 12:39] LABS: ERYTHROCYTE SEDIMENTATION RATE 110 mm/hr (0-20)
[2023-07-03 12:40] LABS: BILIRUBIN,TOTAL 0.2 mg/dL (0.2-1)
[2023-07-03] MEDS ORDERED: SODIUM CHLORIDE 0.9% 500 ML INFUS.BAG IV ONE (12:49)
[2023-07-03 13:18] LABS: ANISOCYTOSIS 2+; MACROCYTOSIS 0; OVALOCYTE 2+
[2023-07-03] MEDS ORDERED: PIPERACILLIN/TAZOB 2.25 GM 2.25 GM/50 ML BAG IVPB ONE (15:46)
[2023-07-03] MEDS: SODIUM CHLORIDE 1,000 ML IV SCH (18:50)
[2023-07-03] MEDS: PIPERACILLIN/TAZOB 2.25 GM 2.25 GM in DEXTROSE 5%-WATER - 50 ML IVPB SCH ×2 (18:50→20:29)
[2023-07-03] MEDS ORDERED: ATORVASTATIN CA 20 MG TABLET (FP) ONE ×2 (21:46→21:53)
[2023-07-03] MEDS ORDERED: APIXABAN 5 MG TABLET ONE (21:46)
[2023-07-03] MEDS ORDERED: GABAPENTIN 300 MG CAPSULE ONE (21:47)
[2023-07-03] MEDS: GABAPENTIN 300 MG CAPSULE PO SCH (21:59)
[2023-07-03] MEDS: ATORVASTATIN CA 20 MG TABLET (FP) PO SCH (21:59)
[2023-07-03] MEDS: APIXABAN 5 MG TABLET PO SCH (21:59)
[2023-07-03] MEDS: INSULIN SLIDING SCALE (NOVOLOG) 1 VIAL SQ SCH (21:59)
[2023-07-04] MEDS: PIPERACILLIN/TAZOB 2.25 GM 2.25 GM in DEXTROSE 5%-WATER - 50 ML IVPB SCH ×2 (03:16→09:16)
[2023-07-04 05:47] VITALS: BMI 39.8
[2023-07-04] MEDS: INSULIN SLIDING SCALE (NOVOLOG) 1 VIAL SQ SCH ×4 (07:24→21:47)
[2023-07-04] MEDS ORDERED: INSULIN (NOVOLOG) ASPART 100 UNITS/ML 10ML VIAL ONE ×5 (07:24→21:47)
[2023-07-04 08:17] LABS: BASO % 1.1 % (0-2.0); EOS % 5.5 % (0-4.5); HEMATOCRIT 25.3 % (35.4-49); HEMOGLOBIN 7.8 GM/dL (11.7-16.9); MCH 21.4 pg (25.7-33.7); MCHC 30.6 g/dl (32.0-35.9); MEAN CELL VOLUME 69.9 fl (80-96); MEAN PLT VOLUME 7.1 fl (7.5-11.1); MONO % 6.3 % (3.8-10.2); NEUT % 64.1 % (42.8-82.8); PLATELET COUNT 421 10^3/uL (134-434); RBC 3.62 M/mm3 (4.00-5.60); RDW 19.6 % (11.9-15.9); WHITE BLOOD COUNT 11.4 K/mm3 (4.0-10.0)
[2023-07-04 08:29] LABS: POTASSIUM 4.4 mmol/L (3.5-5.1)
[2023-07-04 08:48] LABS: BLOOD UREA NITROGEN 33.6 mg/dL (7-18)
[2023-07-04 08:51] LABS: CREATININE 1.7 mg/dL (0.55-1.3)
[2023-07-04 08:53] LABS: BILIRUBIN,TOTAL 0.3 mg/dL (0.2-1); TOT PROT 6.6 g/dl (6.4-8.2)
[2023-07-04] MEDS: APIXABAN 5 MG TABLET PO SCH ×2 (09:16→21:40)
[2023-07-04] MEDS: GABAPENTIN 300 MG CAPSULE PO SCH ×2 (09:16→21:40)
[2023-07-04] MEDS: amLODIPine BESYLATE 5 MG TABLET (FP) PO SCH (09:18)
[2023-07-04] MEDS: LOSARTAN POTASSIUM 50 MG TABLET PO SCH (09:18)
[2023-07-04] MEDS: SODIUM CHLORIDE 1,000 ML IV SCH (14:41)
[2023-07-04] MEDS ORDERED: ACETAMINOPHEN 1000 MG/100 ML BAG IVPB PRN (15:25)
[2023-07-04] MEDS: PIPERACILLIN/TAZOB 3.375 GM 3.375 GM in DEXTROSE 5%-WATER - 50 ML IVPB SCH (17:46)
[2023-07-04] MEDS: TOBRAMYCIN 0.3% OPHTH SOLN 5 ML BOTTLE OD SCH (17:47)
[2023-07-04] MEDS: ATORVASTATIN CA 20 MG TABLET (FP) PO SCH (21:40)
[2023-07-05] MEDS: TOBRAMYCIN 0.3% OPHTH SOLN 5 ML BOTTLE OD SCH ×5 (00:08→23:33)
[2023-07-05] MEDS: PIPERACILLIN/TAZOB 3.375 GM 3.375 GM in DEXTROSE 5%-WATER - 50 ML IVPB SCH ×3 (01:24→17:12)
[2023-07-05] MEDS: SODIUM CHLORIDE 1,000 ML IV SCH ×2 (06:12→20:27)
[2023-07-05] MEDS ORDERED: INSULIN (NOVOLOG) ASPART 100 UNITS/ML 10ML VIAL ONE ×4 (06:46→21:25)
[2023-07-05] MEDS: INSULIN SLIDING SCALE (NOVOLOG) 1 VIAL SQ SCH ×4 (06:47→21:25)
[2023-07-05] MEDS: LOSARTAN POTASSIUM 50 MG TABLET PO SCH (09:35)
[2023-07-05] MEDS: GABAPENTIN 300 MG CAPSULE PO SCH ×2 (09:35→21:18)
[2023-07-05] MEDS: APIXABAN 5 MG TABLET PO SCH ×2 (09:35→21:18)
[2023-07-05] MEDS: amLODIPine BESYLATE 5 MG TABLET (FP) PO SCH (09:35)
[2023-07-05] MEDS: ATORVASTATIN CA 20 MG TABLET (FP) PO SCH (21:17)
[2023-07-05] MEDS: oxyCODONE HCL 5 MG TABLET PO PRN (22:33)
[2023-07-06] MEDS: PIPERACILLIN/TAZOB 3.375 GM 3.375 GM in DEXTROSE 5%-WATER - 50 ML IVPB SCH ×3 (01:12→17:21)
[2023-07-06] MEDS: TOBRAMYCIN 0.3% OPHTH SOLN 5 ML BOTTLE OD SCH ×3 (05:57→17:33)
[2023-07-06] MEDS: INSULIN SLIDING SCALE (NOVOLOG) 1 VIAL SQ SCH ×4 (06:04→22:27)
[2023-07-06] MEDS ORDERED: INSULIN (NOVOLOG) ASPART 100 UNITS/ML 10ML VIAL ONE ×6 (06:04→22:29)
[2023-07-06 09:33] LABS: BASO % 0.1 % (0-2.0); EOS % 6.9 % (0-4.5); HEMATOCRIT 25.8 % (35.4-49); HEMOGLOBIN 8.3 GM/dL (11.7-16.9); LYMPH % 23.5 % (8-40); MCHC 32.2 g/dl (32.0-35.9); MEAN CELL VOLUME 68.1 fl (80-96); MEAN PLT VOLUME 7.1 fl (7.5-11.1); MONO % 6.1 % (3.8-10.2); NEUT % 63.4 % (42.8-82.8); PLATELET COUNT 460 10^3/uL (134-434); RBC 3.78 M/mm3 (4.00-5.60); RDW 19.5 % (11.9-15.9)
[2023-07-06] MEDS: oxyCODONE HCL 5 MG TABLET PO PRN ×2 (09:57→20:37)
[2023-07-06 10:00] LABS: POTASSIUM 4.6 mmol/L (3.5-5.1)
[2023-07-06 10:06] LABS: CALCIUM 8.3 mg/dL (8.5-10.1)
[2023-07-06 10:07] LABS: ALBUMIN 2.2 g/dl (3.4-5.0); BLOOD UREA NITROGEN 18.3 mg/dL (7-18)
[2023-07-06 10:10] LABS: CREATININE 1.5 mg/dL (0.55-1.3)
[2023-07-06 10:12] LABS: BILIRUBIN,TOTAL 0.3 mg/dL (0.2-1); TOT PROT 7.1 g/dl (6.4-8.2)
[2023-07-06] MEDS: LOSARTAN POTASSIUM 50 MG TABLET PO SCH (12:06)
[2023-07-06] MEDS: amLODIPine BESYLATE 5 MG TABLET (FP) PO SCH (12:06)
[2023-07-06] MEDS: APIXABAN 5 MG TABLET PO SCH (12:06)
[2023-07-06] MEDS: GABAPENTIN 300 MG CAPSULE PO SCH ×2 (12:06→22:26)
[2023-07-06] MEDS: SODIUM CHLORIDE 1,000 ML IV SCH ×4 (12:19→18:52)
[2023-07-06] MEDS: ATORVASTATIN CA 20 MG TABLET (FP) PO SCH (22:26)
[2023-07-07] MEDS: TOBRAMYCIN 0.3% OPHTH SOLN 5 ML BOTTLE OD SCH ×5 (01:11→23:57)
[2023-07-07] MEDS: PIPERACILLIN/TAZOB 3.375 GM 3.375 GM in DEXTROSE 5%-WATER - 50 ML IVPB SCH ×3 (02:20→17:50)
[2023-07-07] MEDS: INSULIN SLIDING SCALE (NOVOLOG) 1 VIAL SQ SCH ×4 (06:48→21:34)
[2023-07-07] MEDS ORDERED: INSULIN (NOVOLOG) ASPART 100 UNITS/ML 10ML VIAL ONE ×2 (06:53→21:33)
[2023-07-07] MEDS: amLODIPine BESYLATE 5 MG TABLET (FP) PO SCH (10:08)
[2023-07-07] MEDS: GABAPENTIN 300 MG CAPSULE PO SCH ×2 (10:08→21:27)
[2023-07-07] MEDS: LOSARTAN POTASSIUM 50 MG TABLET PO SCH (10:08)
[2023-07-07 10:17] LABS: BASO % 0.9 % (0-2.0); HEMATOCRIT 25.8 % (35.4-49); HEMOGLOBIN 7.8 GM/dL (11.7-16.9); LYMPH % 19.7 % (8-40); MCH 21.2 pg (25.7-33.7); MCHC 30.3 g/dl (32.0-35.9); MEAN CELL VOLUME 69.9 fl (80-96); MONO % 6.5 % (3.8-10.2); NEUT % 66.9 % (42.8-82.8); PLATELET COUNT 436 10^3/uL (134-434); RBC 3.69 M/mm3 (4.00-5.60); RDW 19.7 % (11.9-15.9); WHITE BLOOD COUNT 11.9 K/mm3 (4.0-10.0)
[2023-07-07 11:17] LABS: POTASSIUM 4.8 mmol/L (3.5-5.1)
[2023-07-07 11:23] LABS: ALBUMIN 2.2 g/dl (3.4-5.0)
[2023-07-07 11:24] LABS: BLOOD UREA NITROGEN 17.1 mg/dL (7-18)
[2023-07-07 11:25] LABS: CALCIUM 8.5 mg/dL (8.5-10.1); CREATININE 1.5 mg/dL (0.55-1.3)
[2023-07-07 11:27] LABS: BILIRUBIN,TOTAL 0.2 mg/dL (0.2-1); TOT PROT 6.9 g/dl (6.4-8.2)
[2023-07-07 13:01] LABS: ANISOCYTOSIS 3+; MACROCYTOSIS 1+
[2023-07-07] MEDS: SODIUM CHLORIDE 1,000 ML IV SCH (17:52)
[2023-07-07] MEDS: ATORVASTATIN CA 20 MG TABLET (FP) PO SCH (21:27)
[2023-07-08] MEDS: PIPERACILLIN/TAZOB 3.375 GM 3.375 GM in DEXTROSE 5%-WATER - 50 ML IVPB SCH ×3 (02:07→17:12)
[2023-07-08] MEDS: TOBRAMYCIN 0.3% OPHTH SOLN 5 ML BOTTLE OD SCH ×4 (05:42→21:34)
[2023-07-08] MEDS: SODIUM CHLORIDE 1,000 ML IV SCH ×3 (05:48→21:52)
[2023-07-08] MEDS ORDERED: INSULIN (NOVOLOG) ASPART 100 UNITS/ML 10ML VIAL ONE ×4 (06:43→21:46)
[2023-07-08] MEDS: INSULIN SLIDING SCALE (NOVOLOG) 1 VIAL SQ SCH ×4 (06:47→21:47)
[2023-07-08] MEDS ORDERED: LIDOCAINE HCL 1%, 10 MG/ML (20ML VIAL) ONE (07:21)
[2023-07-08] MEDS ORDERED: BUPIVACAINE HCL/PF 0.5% (5MG/ML) 10 ML VIAL ONE (07:22)
[2023-07-08] MEDS ORDERED: LIDOCAINE HCL/PF 2% SDV 5ML VIAL ONE (07:43)
[2023-07-08] MEDS ORDERED: MIDAZOLAM HCL 2 MG/2 ML SINGLE DOSE VIAL ONE (07:43)
[2023-07-08] MEDS ORDERED: FENTANYL CITRATE/PF 50 MCG/ML VIAL ONE (07:43)
[2023-07-08] MEDS ORDERED: PROPOFOL 40 ML ONE (07:43)
[2023-07-08] MEDS ORDERED: ONDANSETRON 4 MG/2 ML VIAL IVPUSH PRN (08:26)
[2023-07-08] MEDS ORDERED: oxyCODONE HCL 5 MG TABLET PO PRN (08:30)
[2023-07-08 09:54] LABS: BASO % 0.3 % (0-2.0); HEMATOCRIT 25.6 % (35.4-49); HEMOGLOBIN 7.9 GM/dL (11.7-16.9); LYMPH % 20.3 % (8-40); MCH 21.7 pg (25.7-33.7); MEAN CELL VOLUME 70.1 fl (80-96); MEAN PLT VOLUME 6.7 fl (7.5-11.1); MONO % 7.5 % (3.8-10.2); NEUT % 65.9 % (42.8-82.8); PLATELET COUNT 411 10^3/uL (134-434); RBC 3.65 M/mm3 (4.00-5.60); RDW 19.6 % (11.9-15.9); WHITE BLOOD COUNT 10.6 K/mm3 (4.0-10.0)
[2023-07-08 10:06] LABS: INR 1.4 (0.83-1.09); PROTHROMBIN TIME (PATIENT) 16.2 SEC (9.7-13.0)
[2023-07-08 10:11] LABS: POTASSIUM 4.5 mmol/L (3.5-5.1)
[2023-07-08 10:18] LABS: CREATININE 1.5 mg/dL (0.55-1.3)
[2023-07-08 10:19] LABS: TOT PROT 6.8 g/dl (6.4-8.2)
[2023-07-08 10:26] LABS: ALBUMIN 2.2 g/dl (3.4-5.0); BILIRUBIN,TOTAL 0.3 mg/dL (0.2-1); BLOOD UREA NITROGEN 16.2 mg/dL (7-18); CALCIUM 8.5 mg/dL (8.5-10.1)
[2023-07-08] MEDS: amLODIPine BESYLATE 5 MG TABLET (FP) PO SCH (11:10)
[2023-07-08] MEDS: GABAPENTIN 300 MG CAPSULE PO SCH ×2 (11:10→21:32)
[2023-07-08] MEDS: LOSARTAN POTASSIUM 50 MG TABLET PO SCH (11:10)
[2023-07-08] MEDS: APIXABAN 5 MG TABLET PO SCH (21:33)
[2023-07-08] MEDS: ATORVASTATIN CA 20 MG TABLET (FP) PO SCH (21:33)
[2023-07-09] MEDS: PIPERACILLIN/TAZOB 3.375 GM 3.375 GM in DEXTROSE 5%-WATER - 50 ML IVPB SCH ×3 (01:16→17:56)
[2023-07-09] MEDS ORDERED: INSULIN (NOVOLOG) ASPART 100 UNITS/ML 10ML VIAL ONE ×5 (06:49→21:40)
[2023-07-09] MEDS: INSULIN SLIDING SCALE (NOVOLOG) 1 VIAL SQ SCH ×4 (06:50→21:42)
[2023-07-09] MEDS: APIXABAN 5 MG TABLET PO SCH ×2 (10:47→21:42)
[2023-07-09] MEDS: GABAPENTIN 300 MG CAPSULE PO SCH ×2 (10:47→21:42)
[2023-07-09] MEDS: LOSARTAN POTASSIUM 50 MG TABLET PO SCH (10:47)
[2023-07-09] MEDS: amLODIPine BESYLATE 5 MG TABLET (FP) PO SCH (10:47)
[2023-07-09] MEDS: SODIUM CHLORIDE 1,000 ML IV SCH ×2 (11:13→13:39)
[2023-07-09] MEDS: TOBRAMYCIN 0.3% OPHTH SOLN 5 ML BOTTLE OD SCH ×4 (11:31→21:43)
[2023-07-09] MEDS: ATORVASTATIN CA 20 MG TABLET (FP) PO SCH (21:42)
[2023-07-10] MEDS: PIPERACILLIN/TAZOB 3.375 GM 3.375 GM in DEXTROSE 5%-WATER - 50 ML IVPB SCH ×3 (01:56→17:40)
[2023-07-10] MEDS: INSULIN SLIDING SCALE (NOVOLOG) 1 VIAL SQ SCH ×4 (06:26→22:48)
[2023-07-10] MEDS: APIXABAN 5 MG TABLET PO SCH ×2 (10:20→22:40)
[2023-07-10] MEDS: amLODIPine BESYLATE 5 MG TABLET (FP) PO SCH (10:20)
[2023-07-10] MEDS: GABAPENTIN 300 MG CAPSULE PO SCH ×2 (10:20→22:40)
[2023-07-10] MEDS: LOSARTAN POTASSIUM 50 MG TABLET PO SCH (10:20)
[2023-07-10] MEDS: TOBRAMYCIN 0.3% OPHTH SOLN 5 ML BOTTLE OD SCH ×4 (10:27→22:41)
[2023-07-10 11:12] LABS: POTASSIUM 4.4 mmol/L (3.5-5.1)
[2023-07-10] MEDS ORDERED: INSULIN (NOVOLOG) ASPART 100 UNITS/ML 10ML VIAL ONE ×3 (11:12→16:31)
[2023-07-10 11:18] LABS: ALBUMIN 2.2 g/dl (3.4-5.0); BLOOD UREA NITROGEN 18.6 mg/dL (7-18); CALCIUM 8.6 mg/dL (8.5-10.1)
[2023-07-10 11:21] LABS: CREATININE 1.6 mg/dL (0.55-1.3)
[2023-07-10 11:23] LABS: BILIRUBIN,TOTAL 0.4 mg/dL (0.2-1)
[2023-07-10] MEDS ORDERED: PIPERACILLIN/TAZOBACTAM 3.375 GM VIAL IVPB ONE (17:37)
[2023-07-10] MEDS: ATORVASTATIN CA 20 MG TABLET (FP) PO SCH (22:40)
[2023-07-11] MEDS: PIPERACILLIN/TAZOB 3.375 GM 3.375 GM in DEXTROSE 5%-WATER - 50 ML IVPB SCH ×3 (01:28→17:10)
[2023-07-11] MEDS: INSULIN SLIDING SCALE (NOVOLOG) 1 VIAL SQ SCH ×4 (07:14→21:35)
[2023-07-11] MEDS: GABAPENTIN 300 MG CAPSULE PO SCH ×2 (10:54→21:35)
[2023-07-11] MEDS: APIXABAN 5 MG TABLET PO SCH ×2 (10:54→21:35)
[2023-07-11] MEDS: amLODIPine BESYLATE 5 MG TABLET (FP) PO SCH (10:54)
[2023-07-11] MEDS: LOSARTAN POTASSIUM 50 MG TABLET PO SCH (10:54)
[2023-07-11] MEDS: TOBRAMYCIN 0.3% OPHTH SOLN 5 ML BOTTLE OD SCH ×4 (10:55→21:39)
[2023-07-11] MEDS ORDERED: INSULIN (NOVOLOG) ASPART 100 UNITS/ML 10ML VIAL ONE (21:33)
[2023-07-11] MEDS: ATORVASTATIN CA 20 MG TABLET (FP) PO SCH (21:35)
[2023-07-12] MEDS: PIPERACILLIN/TAZOB 3.375 GM 3.375 GM in DEXTROSE 5%-WATER - 50 ML IVPB SCH ×3 (02:45→18:20)
[2023-07-12] MEDS: INSULIN SLIDING SCALE (NOVOLOG) 1 VIAL SQ SCH ×4 (07:03→21:56)
[2023-07-12] MEDS: APIXABAN 5 MG TABLET PO SCH ×2 (10:17→21:55)
[2023-07-12] MEDS: LOSARTAN POTASSIUM 50 MG TABLET PO SCH (10:17)
[2023-07-12] MEDS: GABAPENTIN 300 MG CAPSULE PO SCH ×2 (10:17→21:55)
[2023-07-12] MEDS: amLODIPine BESYLATE 5 MG TABLET (FP) PO SCH (10:17)
[2023-07-12] MEDS: TOBRAMYCIN 0.3% OPHTH SOLN 5 ML BOTTLE OD SCH ×4 (10:18→22:00)
[2023-07-12] MEDS ORDERED: INSULIN (NOVOLOG) ASPART 100 UNITS/ML 10ML VIAL ONE ×3 (12:07→20:40)
[2023-07-12] MEDS: ATORVASTATIN CA 20 MG TABLET (FP) PO SCH (21:55)
[2023-07-12 23:55] VITALS: RESP 18
[2023-07-13] MEDS: PIPERACILLIN/TAZOB 3.375 GM 3.375 GM in DEXTROSE 5%-WATER - 50 ML IVPB SCH ×3 (01:42→18:08)
[2023-07-13] MEDS ORDERED: INSULIN (NOVOLOG) ASPART 100 UNITS/ML 10ML VIAL ONE ×3 (06:38→23:14)
[2023-07-13] MEDS: INSULIN SLIDING SCALE (NOVOLOG) 1 VIAL SQ SCH ×4 (06:39→22:48)
[2023-07-13] MEDS: APIXABAN 5 MG TABLET PO SCH ×2 (10:32→22:48)
[2023-07-13] MEDS: LOSARTAN POTASSIUM 50 MG TABLET PO SCH (10:32)
[2023-07-13] MEDS: TOBRAMYCIN 0.3% OPHTH SOLN 5 ML BOTTLE OD SCH ×4 (10:33→22:49)
[2023-07-13] MEDS: GABAPENTIN 300 MG CAPSULE PO SCH ×2 (10:33→22:48)
[2023-07-13] MEDS: amLODIPine BESYLATE 5 MG TABLET (FP) PO SCH (10:33)
[2023-07-13] MEDS: ATORVASTATIN CA 20 MG TABLET (FP) PO SCH (22:48)
[2023-07-14] MEDS: PIPERACILLIN/TAZOB 3.375 GM 3.375 GM in DEXTROSE 5%-WATER - 50 ML IVPB SCH ×2 (02:03→12:15)
[2023-07-14] MEDS ORDERED: INSULIN (NOVOLOG) ASPART 100 UNITS/ML 10ML VIAL ONE (05:35)
[2023-07-14] MEDS: INSULIN SLIDING SCALE (NOVOLOG) 1 VIAL SQ SCH ×2 (06:02→12:14)
[2023-07-14 08:12] LABS: POTASSIUM 4.2 mmol/L (3.5-5.1)
[2023-07-14 08:16] LABS: ALBUMIN 2.3 g/dl (3.4-5.0); BLOOD UREA NITROGEN 21.6 mg/dL (7-18); CALCIUM 8.6 mg/dL (8.5-10.1)
[2023-07-14 08:19] LABS: CREATININE 1.7 mg/dL (0.55-1.3)
[2023-07-14 08:21] LABS: BILIRUBIN,TOTAL 0.4 mg/dL (0.2-1); TOT PROT 6.8 g/dl (6.4-8.2)
[2023-07-14] MEDS ORDERED: ERTAPENEM SODIUM 1 GM in SODIUM CHLORIDE 50 ML IVPB SCH (10:30)
[2023-07-14] MEDS: GABAPENTIN 300 MG CAPSULE PO SCH (12:10)
[2023-07-14] MEDS: APIXABAN 5 MG TABLET PO SCH (12:10)
[2023-07-14] MEDS: LOSARTAN POTASSIUM 50 MG TABLET PO SCH (12:10)
[2023-07-14] MEDS: amLODIPine BESYLATE 5 MG TABLET (FP) PO SCH (12:11)
[2023-07-14] MEDS: TOBRAMYCIN 0.3% OPHTH SOLN 5 ML BOTTLE OD SCH ×2 (12:13→13:57)
[2023-07-14 13:14] VITALS: BP 166/89; PULSE 91; TEMP 98.6
== END 2023-07-14 14:17 | DRG 349 ==
LOC: JER 09:59 → JERBED 13:47 → J8W 23:01
PROVIDERS: ADMIT Internal Medicine; ATTEND Internal Medicine
PROC: 0JBQ0ZZ Excision of Right Foot Subcutaneous Tissue and Fascia, Open Approach (ICD-10-PCS; principal; 2023-07-08 07:30)
PROC: 02HV33Z Insertion of Infusion Device into Superior Vena Cava, Percutaneous Approach (ICD-10-PCS; 2023-07-14)
PROC: B518ZZA Fluoroscopy of Superior Vena Cava, Guidance (ICD-10-PCS; 2023-07-14)
DX: T87.43 Infection of amputation stump, right lower extremity (principal); E11.40 Type 2 diabetes mellitus with diabetic neuropathy, unspecified; E11.51 Type 2 diabetes mellitus with diabetic peripheral angiopathy without gangrene; I10 Essential (primary) hypertension; E78.5 Hyperlipidemia, unspecified; E66.8 Other obesity; Z68.37 Body mass index [BMI] 37.0-37.9, adult; R80.9 Proteinuria, unspecified; L08.9 Local infection of the skin and subcutaneous tissue, unspecified; D72.829 Elevated white blood cell count, unspecified; N17.9 Acute kidney failure, unspecified; I25.10 Atherosclerotic heart disease of native coronary artery without angina pectoris; I12.9 Hypertensive chronic kidney disease with stage 1 through stage 4 chronic kidney disease, or unspecified chronic kidney disease; E11.22 Type 2 diabetes mellitus with diabetic chronic kidney disease; N18.9 Chronic kidney disease, unspecified; L02.611 Cutaneous abscess of right foot; L03.115 Cellulitis of right lower limb; E11.621 Type 2 diabetes mellitus with foot ulcer; L97.418 Non-pressure chronic ulcer of right heel and midfoot with other specified severity; Z89.512 Acquired absence of left leg below knee; Y83.8 Other surgical procedures as the cause of abnormal reaction of the patient, or of later complication, without mention of misadventure at the time of the procedure
CPT/HCPCS: 11042; 11045; 36415; 36569; 73630-TC-RT-FY; 73718-TC-RT; 80053; 82962; 85025; 85610; 85651; 86140; 86850; 86900; 86901; 87040; 87635; 94760; 97116-GP; 97162-GP; 99285-25; J3370

== ENCOUNTER 2023-10-16 16:00 | Inpatient (IN) | payer OTHER ==
[2023-10-16 16:22] VITALS: BMI 48.6
[2023-10-16 19:09] LABS: BASO % 1.1 % (0-2.0); EOS % 3.1 % (0-4.5); HEMATOCRIT 29.4 % (35.4-49); HEMOGLOBIN 9.3 GM/dL (11.7-16.9); LYMPH % 15.5 % (8-40); MCH 23.6 pg (25.7-33.7); MCHC 31.8 g/dl (32.0-35.9); MEAN PLT VOLUME 7.5 fl (7.5-11.1); MONO % 6.4 % (3.8-10.2); NEUT % 73.9 % (42.8-82.8); PLATELET COUNT 347 10^3/uL (134-434); RBC 3.97 M/mm3 (4.00-5.60); RDW 20.9 % (11.9-15.9)
[2023-10-16 19:16] LABS: INR 1.31 (0.83-1.09); PROTHROMBIN TIME (PATIENT) 15.1 SEC (9.7-13.0)
[2023-10-16 19:21] LABS: POTASSIUM 4.1 mmol/L (3.5-5.1)
[2023-10-16 19:23] LABS: CALCIUM 8.4 mg/dL (8.5-10.1)
[2023-10-16 19:24] LABS: BLOOD UREA NITROGEN 26.6 mg/dL (7-18)
[2023-10-16 19:26] LABS: CREATININE 1.6 mg/dL (0.55-1.3)
[2023-10-16] MEDS: ACETAMINOPHEN 1000 MG/100 ML BAG IVPB ONE (19:26)
[2023-10-16 19:28] LABS: BILIRUBIN,TOTAL 0.3 mg/dL (0.2-1); TOT PROT 6.8 g/dl (6.4-8.2)
[2023-10-16 20:01] LABS: ERYTHROCYTE SEDIMENTATION RATE 102 mm/hr (0-20)
[2023-10-16 20:31] LABS: ANISOCYTOSIS 3+; MACROCYTOSIS 0; OVALOCYTE 1+
[2023-10-17] MEDS: oxyCODONE HCL 5 MG TABLET PO PRN (04:48)
[2023-10-17 07:42] LABS: BASO % 0.7 % (0-2.0); EOS % 3.7 % (0-4.5); HEMATOCRIT 27.7 % (35.4-49); HEMOGLOBIN 8.9 GM/dL (11.7-16.9); LYMPH % 18.6 % (8-40); MCH 23.9 pg (25.7-33.7); MEAN CELL VOLUME 74.8 fl (80-96); MEAN PLT VOLUME 7.4 fl (7.5-11.1); PLATELET COUNT 305 10^3/uL (134-434); RBC 3.71 M/mm3 (4.00-5.60); RDW 20.6 % (11.9-15.9); WHITE BLOOD COUNT 11.8 K/mm3 (4.0-10.0)
[2023-10-17 07:59] LABS: POTASSIUM 4.5 mmol/L (3.5-5.1)
[2023-10-17 08:01] LABS: CALCIUM 8.4 mg/dL (8.5-10.1)
[2023-10-17 08:02] LABS: BLOOD UREA NITROGEN 25.6 mg/dL (7-18)
[2023-10-17 08:05] LABS: CREATININE 1.7 mg/dL (0.55-1.3)
[2023-10-17] MEDS ORDERED: LEVOTHYROXINE NA 25 MCG TABLET (FP) ONE (09:33)
[2023-10-17] MEDS: LEVOTHYROXINE NA 25 MCG TABLET (FP) PO SCH (09:50)
[2023-10-17] MEDS: MULTIVITAMINS (DAILY MVI) TABLET (FP) PO SCH (11:50)
[2023-10-17] MEDS: LOSARTAN POTASSIUM 50 MG TABLET PO SCH (11:50)
[2023-10-17] MEDS: SENNOSIDES 8.6MG TABLET (FP) PO SCH (11:50)
[2023-10-17] MEDS: amLODIPine BESYLATE 10 MG TABLET (FP) PO SCH (11:50)
[2023-10-17] MEDS: GABAPENTIN 300 MG CAPSULE PO SCH (11:50)
[2023-10-17] MEDS: APIXABAN 5 MG TABLET PO SCH (11:50)
[2023-10-17] MEDS: ASPIRIN 81 MG CHEWABLE TABLETS PO SCH (11:50)
[2023-10-17] MEDS: FERROUS SO4 325 MG TABLET (FP) PO SCH (11:50)
[2023-10-17] MEDS ORDERED: ASPIRIN 81 MG CHEWABLE TABLETS ONE (11:53)
[2023-10-17] MEDS ORDERED: FERROUS SO4 325 MG TABLET (FP) ONE (11:53)
[2023-10-17] MEDS ORDERED: VANCOMYCIN 1 GRAM (PRE-DOCKED) 1,000 MG/250 ML BAG IVPB ONE (16:22)
[2023-10-17] MEDS: VANCOMYCIN/WATER FOR INJ (PEG) 1,000 MG/200 ML BAG IVPB SCH (20:05)
[2023-10-17] MEDS ORDERED: oxyCODONE HCL 5 MG TABLET ONE (20:07)
[2023-10-17] MEDS ORDERED: APIXABAN 5 MG TABLET ONE (21:28)
[2023-10-17] MEDS ORDERED: GABAPENTIN 300 MG CAPSULE ONE (21:28)
[2023-10-17] MEDS ORDERED: ATORVASTATIN CA 20 MG TABLET (FP) ONE (21:28)
[2023-10-17] MEDS ORDERED: SENNOSIDES 8.6MG TABLET (FP) PO ONE (21:28)
[2023-10-17] MEDS: ATORVASTATIN CA 20 MG TABLET (FP) PO SCH (21:30)
[2023-10-18] MEDS ORDERED: VANCOMYCIN 1 GRAM (PRE-DOCKED) 1,000 MG/250 ML BAG IVPB ONE ×2 (03:56→16:31)
[2023-10-18] MEDS ORDERED: LEVOTHYROXINE NA 25 MCG TABLET (FP) ONE (06:20)
[2023-10-18] MEDS: INSULIN ASPART SLIDING SCALE (NOVOLOG) 1 VIAL SQ SCH (17:45)
[2023-10-18] MEDS ORDERED: APIXABAN 5 MG TABLET ONE (21:01)
[2023-10-18] MEDS ORDERED: ATORVASTATIN CA 20 MG TABLET (FP) ONE (21:01)
[2023-10-18] MEDS ORDERED: SENNOSIDES 8.6MG TABLET (FP) PO ONE (21:01)
[2023-10-18] MEDS ORDERED: GABAPENTIN 300 MG CAPSULE ONE (21:02)
[2023-10-19] MEDS ORDERED: VANCOMYCIN 1 GRAM (PRE-DOCKED) 1,000 MG/250 ML BAG IVPB ONE (02:18)
[2023-10-19 06:26] LABS: BASO % 0.7 % (0-2.0); EOS % 4.2 % (0-4.5); HEMATOCRIT 29.8 % (35.4-49); HEMOGLOBIN 9.2 GM/dL (11.7-16.9); LYMPH % 20.1 % (8-40); MCH 23.2 pg (25.7-33.7); MCHC 30.8 g/dl (32.0-35.9); MEAN CELL VOLUME 75.4 fl (80-96); MEAN PLT VOLUME 7.3 fl (7.5-11.1); MONO % 8.2 % (3.8-10.2); NEUT % 66.8 % (42.8-82.8); PLATELET COUNT 323 10^3/uL (134-434); RBC 3.95 M/mm3 (4.00-5.60); WHITE BLOOD COUNT 10.6 K/mm3 (4.0-10.0)
[2023-10-19 06:30] LABS: POTASSIUM 4.2 mmol/L (3.5-5.1)
[2023-10-19 06:32] LABS: ALBUMIN 2.1 g/dl (3.4-5.0); CALCIUM 8.6 mg/dL (8.5-10.1)
[2023-10-19 06:33] LABS: BLOOD UREA NITROGEN 21.8 mg/dL (7-18)
[2023-10-19 06:36] LABS: CREATININE 1.8 mg/dL (0.55-1.3)
[2023-10-19 06:37] LABS: BILIRUBIN,TOTAL 0.3 mg/dL (0.2-1); TOT PROT 6.7 g/dl (6.4-8.2)
[2023-10-19] MEDS ORDERED: LEVOTHYROXINE NA 25 MCG TABLET (FP) ONE (07:50)
[2023-10-19] MEDS ORDERED: ACETAMINOPHEN INJECTION 100 ML IVPB ONE (12:23)
[2023-10-19] MEDS: ACETAMINOPHEN 1000 MG/100 ML BAG IVPB PRN (12:27)
[2023-10-19] MEDS ORDERED: INSULIN (NOVOLOG) ASPART 100 UNITS/ML 10ML VIAL ONE (17:35)
[2023-10-20 09:47] LABS: BASO % 1.1 % (0-2.0); EOS % 5.2 % (0-4.5); HEMATOCRIT 28.6 % (35.4-49); HEMOGLOBIN 9.3 GM/dL (11.7-16.9); LYMPH % 21.8 % (8-40); MCHC 32.6 g/dl (32.0-35.9); MEAN CELL VOLUME 73.7 fl (80-96); MEAN PLT VOLUME 7.3 fl (7.5-11.1); MONO % 8.1 % (3.8-10.2); NEUT % 63.8 % (42.8-82.8); PLATELET COUNT 361 10^3/uL (134-434); RBC 3.88 M/mm3 (4.00-5.60); RDW 19.6 % (11.9-15.9); WHITE BLOOD COUNT 9.9 K/mm3 (4.0-10.0)
[2023-10-20 10:09] LABS: POTASSIUM 4.5 mmol/L (3.5-5.1)
[2023-10-20 10:14] LABS: CALCIUM 8.6 mg/dL (8.5-10.1)
[2023-10-20 10:15] LABS: ALBUMIN 2.2 g/dl (3.4-5.0); BLOOD UREA NITROGEN 21.4 mg/dL (7-18)
[2023-10-20 10:17] LABS: CREATININE 1.8 mg/dL (0.55-1.3)
[2023-10-20 10:19] LABS: BILIRUBIN,TOTAL 0.3 mg/dL (0.2-1); TOT PROT 6.9 g/dl (6.4-8.2)
[2023-10-20] MEDS ORDERED: INSULIN (NOVOLOG) ASPART 100 UNITS/ML 10ML VIAL ONE ×2 (13:02→21:14)
[2023-10-20] MEDS ORDERED: ONDANSETRON 4 MG/2 ML VIAL IVPUSH PRN ×2 (15:31→17:47)
[2023-10-20] MEDS ORDERED: PROMETHAZINE HCL 25 MG/1 ML VIAL IVPB PRN ×2 (15:31→17:47)
[2023-10-20] MEDS ORDERED: BACITRACIN ZINC 15 GM TUBE TOPICAL OINTMENT ONE (15:42)
[2023-10-20] MEDS ORDERED: BUPIVACAINE HCL/PF 0.5% (5MG/ML) 10 ML VIAL ONE (15:52)
[2023-10-20] MEDS ORDERED: PIPERACILLIN/TAZOBACTAM 3.375 GM VIAL IVPB ONE (15:54)
[2023-10-20] MEDS ORDERED: PROPOFOL 20 ML ONE (15:55)
[2023-10-20] MEDS ORDERED: MIDAZOLAM HCL 2 MG/2 ML SINGLE DOSE VIAL ONE (15:56)
[2023-10-20] MEDS: PIPERACILLIN/TAZOBACTAM 3.375 GM VIAL IVPB ONE ×2 (16:16→16:18)
[2023-10-20] MEDS: VANCOMYCIN 1,000 MG VIAL (RESTRICTED TO ID ONLY) IVPB ONE (16:16)
[2023-10-20] MEDS ORDERED: LIDOCAINE HCL/PF 2% SDV 5ML VIAL ONE (16:21)
[2023-10-20] MEDS ORDERED: VANCOMYCIN 1,000 MG VIAL (RESTRICTED TO ID ONLY) ONE (16:21)
[2023-10-20] MEDS ORDERED: GLYCOPYRROLATE 0.2 MG/1 ML VIAL ONE ×2 (16:21→17:00)
[2023-10-20] MEDS ORDERED: SODIUM CHLORIDE 0.9% P/F 10 ML VIAL IJ ONE (16:21)
[2023-10-20] MEDS ORDERED: ONDANSETRON 4 MG/2 ML VIAL ONE (16:41)
[2023-10-20] MEDS ORDERED: ROCURONIUM BROMIDE 50 MG/5 ML SYRINGE ONE (16:59)
[2023-10-20] MEDS: PIPERACILLIN/TAZOB 2.25 GM 2.25 GM in DEXTROSE 5%-WATER - 50 ML IVPB SCH (18:27)
[2023-10-20] MEDS: LACTATED RINGERS SOLUTION 1,000 ML IV SCH ×2 (18:28→18:35)
[2023-10-20] MEDS: ACETAMINOPHEN 1000 MG/100 ML BAG IVPB PRN (20:11)
[2023-10-20] MEDS: SENNOSIDES 8.6MG TABLET (FP) PO SCH (21:22)
[2023-10-20] MEDS: ATORVASTATIN CA 20 MG TABLET (FP) PO SCH (21:22)
[2023-10-20] MEDS: GABAPENTIN 300 MG CAPSULE PO SCH (21:22)
[2023-10-20] MEDS: INSULIN ASPART SLIDING SCALE (NOVOLOG) 1 VIAL SQ SCH (21:27)
[2023-10-21] MEDS: PIPERACILLIN/TAZOB 2.25 GM 2.25 GM in DEXTROSE 5%-WATER - 50 ML IVPB SCH (02:08)
[2023-10-21] MEDS: VANCOMYCIN/WATER FOR INJ (PEG) 1,000 MG/200 ML BAG IVPB SCH (04:38)
[2023-10-21] MEDS ORDERED: INSULIN (NOVOLOG) ASPART 100 UNITS/ML 10ML VIAL ONE ×3 (06:31→21:27)
[2023-10-21] MEDS: LEVOTHYROXINE NA 25 MCG TABLET (FP) PO SCH (06:47)
[2023-10-21 09:49] LABS: BASO % 0.5 % (0-2.0); EOS % 4.8 % (0-4.5); HEMOGLOBIN 9.2 GM/dL (11.7-16.9); LYMPH % 19.1 % (8-40); MCH 23.5 pg (25.7-33.7); MCHC 31.6 g/dl (32.0-35.9); MEAN CELL VOLUME 74.2 fl (80-96); MEAN PLT VOLUME 7.5 fl (7.5-11.1); MONO % 7.7 % (3.8-10.2); NEUT % 67.9 % (42.8-82.8); PLATELET COUNT 364 10^3/uL (134-434); RDW 19.4 % (11.9-15.9)
[2023-10-21] MEDS: amLODIPine BESYLATE 10 MG TABLET (FP) PO SCH (09:54)
[2023-10-21] MEDS: APIXABAN 5 MG TABLET PO SCH (09:54)
[2023-10-21] MEDS: MULTIVITAMINS (DAILY MVI) TABLET (FP) PO SCH (09:55)
[2023-10-21] MEDS: FERROUS SO4 325 MG TABLET (FP) PO SCH (09:55)
[2023-10-21] MEDS: ASPIRIN 81 MG CHEWABLE TABLETS PO SCH (09:55)
[2023-10-21] MEDS: LOSARTAN POTASSIUM 50 MG TABLET PO SCH (09:55)
[2023-10-21 10:03] LABS: POTASSIUM 4.7 mmol/L (3.5-5.1)
[2023-10-21 10:14] LABS: CALCIUM 8.5 mg/dL (8.5-10.1)
[2023-10-21 10:15] LABS: ALBUMIN 2.1 g/dl (3.4-5.0); BLOOD UREA NITROGEN 20.5 mg/dL (7-18)
[2023-10-21 10:24] LABS: BILIRUBIN,TOTAL 0.3 mg/dL (0.2-1)
[2023-10-22] MEDS ORDERED: INSULIN (NOVOLOG) ASPART 100 UNITS/ML 10ML VIAL ONE (05:59)
[2023-10-22 11:43] LABS: BASO % 0.8 % (0-2.0); EOS % 6.6 % (0-4.5); HEMATOCRIT 28.8 % (35.4-49); HEMOGLOBIN 9.1 GM/dL (11.7-16.9); LYMPH % 21.1 % (8-40); MCH 23.8 pg (25.7-33.7); MCHC 31.6 g/dl (32.0-35.9); MEAN CELL VOLUME 75.1 fl (80-96); MEAN PLT VOLUME 7.4 fl (7.5-11.1); MONO % 7.8 % (3.8-10.2); NEUT % 63.7 % (42.8-82.8); PLATELET COUNT 349 10^3/uL (134-434); RBC 3.84 M/mm3 (4.00-5.60); RDW 19.4 % (11.9-15.9); WHITE BLOOD COUNT 9.2 K/mm3 (4.0-10.0)
[2023-10-22 12:14] LABS: POTASSIUM 4.4 mmol/L (3.5-5.1)
[2023-10-22 12:15] LABS: CALCIUM 8.4 mg/dL (8.5-10.1)
[2023-10-22 12:16] LABS: ALBUMIN 2.2 g/dl (3.4-5.0); BLOOD UREA NITROGEN 19.1 mg/dL (7-18)
[2023-10-22 12:21] LABS: BILIRUBIN,TOTAL 0.2 mg/dL (0.2-1)
[2023-10-22] MEDS ORDERED: FERROUS SO4 325 MG TABLET (FP) PO SCH (13:09)
[2023-10-22] MEDS: DOXYCYCLINE HYCLATE 100 MG CAPSULE PO SCH (18:09)
[2023-10-23] MEDS ORDERED: INSULIN (NOVOLOG) ASPART 100 UNITS/ML 10ML VIAL ONE ×2 (07:03→12:19)
[2023-10-23] MEDS: MINERAL OIL/PET HY-PHL TOPICAL OINTMENT 454 GM JAR TP SCH (11:06)
[2023-10-23] MEDS: FERROUS SO4 325 MG TABLET (FP) PO SCH (12:24)
[2023-10-23 14:44] VITALS: BP 163/91; PULSE 86; RESP 22; TEMP 98
== END 2023-10-23 15:00 | disposition home or self-care (01) | DRG 364 ==
LOC: JER 16:00 → JERBED 22:36 → J8W 10-19 17:11
PROVIDERS: ADMIT Internal Medicine; ATTEND Internal Medicine
PROC: 0J910ZZ Drainage of Face Subcutaneous Tissue and Fascia, Open Approach (ICD-10-PCS; principal; 2023-10-20 13:15)
DX: E11.621 Type 2 diabetes mellitus with foot ulcer (principal); L02.01 Cutaneous abscess of face; I12.9 Hypertensive chronic kidney disease with stage 1 through stage 4 chronic kidney disease, or unspecified chronic kidney disease; E11.22 Type 2 diabetes mellitus with diabetic chronic kidney disease; N18.9 Chronic kidney disease, unspecified; E11.51 Type 2 diabetes mellitus with diabetic peripheral angiopathy without gangrene; E11.40 Type 2 diabetes mellitus with diabetic neuropathy, unspecified; L03.211 Cellulitis of face; E03.9 Hypothyroidism, unspecified; S91.301A Unspecified open wound, right foot, initial encounter; L97.518 Non-pressure chronic ulcer of other part of right foot with other specified severity; D64.9 Anemia, unspecified; I25.10 Atherosclerotic heart disease of native coronary artery without angina pectoris; I48.91 Unspecified atrial fibrillation; R80.9 Proteinuria, unspecified; B95.1 Streptococcus, group B, as the cause of diseases classified elsewhere; D72.829 Elevated white blood cell count, unspecified; B96.5 Pseudomonas (aeruginosa) (mallei) (pseudomallei) as the cause of diseases classified elsewhere; N17.9 Acute kidney failure, unspecified; E66.01 Morbid (severe) obesity due to excess calories; Z68.42 Body mass index [BMI] 45.0-49.9, adult; E78.00 Pure hypercholesterolemia, unspecified; Z89.512 Acquired absence of left leg below knee; Z89.431 Acquired absence of right foot
CPT/HCPCS: 36415; 70486-TC; 71045-TC-FY; 73630-TC-RT-FY; 80048; 80053; 82962; 85025; 85610; 85651; 85730; 86140; 86850; 86900; 86901; 87040; 87070; 87077; 87186; 87205; 93005; 93010; 94760; 99285-25; G0480; J0131

== ENCOUNTER 2024-01-22 10:40 | Inpatient (IN) | payer OTHER ==
[2024-01-22 12:46] LABS: BASO % 0.5 % (0-2.0); EOS % 4.8 % (0-4.5); HEMATOCRIT 25.3 % (35.4-49); HEMOGLOBIN 7.7 GM/dL (11.7-16.9); LYMPH % 16.2 % (8-40); MCH 21.4 pg (25.7-33.7); MCHC 30.3 g/dl (32.0-35.9); MEAN CELL VOLUME 70.7 fl (80-96); MEAN PLT VOLUME 7.3 fl (7.5-11.1); MONO % 6.8 % (3.8-10.2); NEUT % 71.7 % (42.8-82.8); PLATELET COUNT 347 10^3/uL (134-434); RBC 3.57 M/mm3 (4.00-5.60); RDW 18.9 % (11.9-15.9); WHITE BLOOD COUNT 13.1 K/mm3 (4.0-10.0)
[2024-01-22 12:52] LABS: INR 1.49 (0.83-1.09); PROTHROMBIN TIME (PATIENT) 16.6 SEC (9.7-13.0)
[2024-01-22 12:54] LABS: ACTIVATED PTT 37.3 SECONDS (25.2-36.5)
[2024-01-22 13:06] LABS: ANISOCYTOSIS 3+; MACROCYTOSIS 0; OVALOCYTE 1+
[2024-01-22] MEDS ORDERED: PIPERACILLIN/TAZOB 3.375 GM 3.375 GM/50 ML BAG IVPB ONE (13:16)
[2024-01-22] MEDS ORDERED: morphine SULFATE 4 MG/ML VIAL ONE (13:16)
[2024-01-22] MEDS: morphine CARPU-JECT 4 MG/1 ML DISP.SYRIN IVPUSH ONE (13:29)
[2024-01-22] MEDS: PIPERACILLIN/TAZOB 3.375 GM 3.375 GM in DEXTROSE 5%-WATER - 50 ML IVPB SCH (13:29)
[2024-01-22] MEDS: ACETAMINOPHEN 500 MG TABLET (FP) PO ONE (13:29)
[2024-01-22 14:24] LABS: POTASSIUM 4.6 mmol/L (3.5-5.1)
[2024-01-22 14:27] LABS: CALCIUM 8.8 mg/dL (8.5-10.1)
[2024-01-22 14:28] LABS: ALBUMIN 2.4 g/dl (3.4-5.0); BLOOD UREA NITROGEN 33.3 mg/dL (7-18)
[2024-01-22 14:33] LABS: BILIRUBIN,TOTAL 0.3 mg/dL (0.2-1); TOT PROT 7.1 g/dl (6.4-8.2)
[2024-01-22] MEDS: ACETAMINOPHEN 1000 MG/100 ML BAG IVPB PRN (18:49)
[2024-01-22] MEDS: DOXYCYCLINE HYCLATE 100 MG CAPSULE PO SCH (18:50)
[2024-01-22 21:30] VITALS: BMI 41.7
[2024-01-22] MEDS: APIXABAN 5 MG TABLET PO SCH (22:55)
[2024-01-22] MEDS: GABAPENTIN 300 MG CAPSULE PO SCH (22:55)
[2024-01-22] MEDS: INSULIN ASPART SLIDING SCALE (NOVOLOG) 1 VIAL SQ SCH (22:56)
[2024-01-22] MEDS: SENNOSIDES 8.6MG TABLET (FP) PO SCH (22:56)
[2024-01-22] MEDS: ATORVASTATIN CA 20 MG TABLET (FP) PO SCH (22:56)
[2024-01-23] MEDS: oxyCODONE HCL 5 MG TABLET PO ONE (00:53)
[2024-01-23] MEDS: LEVOTHYROXINE NA 25 MCG TABLET (FP) PO SCH (06:50)
[2024-01-23] MEDS ORDERED: INSULIN (NOVOLOG) ASPART 100 UNITS/ML 10ML VIAL ONE ×4 (07:05→17:14)
[2024-01-23 09:22] LABS: BASO % 0.6 % (0-2.0); EOS % 4.8 % (0-4.5); HEMATOCRIT 26.2 % (35.4-49); LYMPH % 15.1 % (8-40); MCH 21.6 pg (25.7-33.7); MCHC 30.6 g/dl (32.0-35.9); MEAN CELL VOLUME 70.7 fl (80-96); MEAN PLT VOLUME 7.7 fl (7.5-11.1); MONO % 5.9 % (3.8-10.2); NEUT % 73.6 % (42.8-82.8); PLATELET COUNT 359 10^3/uL (134-434); RDW 18.8 % (11.9-15.9); WHITE BLOOD COUNT 12.4 K/mm3 (4.0-10.0)
[2024-01-23 09:43] LABS: POTASSIUM 4.8 mmol/L (3.5-5.1)
[2024-01-23 10:03] LABS: CALCIUM 8.7 mg/dL (8.5-10.1)
[2024-01-23 10:04] LABS: ALBUMIN 2.3 g/dl (3.4-5.0)
[2024-01-23 10:06] LABS: CREATININE 2.1 mg/dL (0.55-1.3)
[2024-01-23 10:08] LABS: BILIRUBIN,TOTAL 0.5 mg/dL (0.2-1); TOT PROT 7.1 g/dl (6.4-8.2)
[2024-01-23] MEDS: ASPIRIN 81 MG CHEWABLE TABLETS PO SCH (10:23)
[2024-01-23] MEDS: amLODIPine BESYLATE 5 MG TABLET (FP) PO SCH (10:23)
[2024-01-23] MEDS: LOSARTAN POTASSIUM 50 MG TABLET PO SCH (10:23)
[2024-01-23] MEDS: FERROUS SO4 325 MG TABLET (FP) PO SCH (12:04)
[2024-01-24] MEDS: oxyCODONE HCL 5 MG TABLET PO PRN (01:42)
[2024-01-24 08:58] LABS: BASO % 0.6 % (0-2.0); EOS % 4.4 % (0-4.5); HEMATOCRIT 25.4 % (35.4-49); HEMOGLOBIN 7.8 GM/dL (11.7-16.9); LYMPH % 14.8 % (8-40); MCH 21.6 pg (25.7-33.7); MCHC 30.9 g/dl (32.0-35.9); MEAN CELL VOLUME 69.9 fl (80-96); MEAN PLT VOLUME 7.6 fl (7.5-11.1); MONO % 6.2 % (3.8-10.2); PLATELET COUNT 360 10^3/uL (134-434); RBC 3.63 M/mm3 (4.00-5.60); RDW 18.8 % (11.9-15.9); WHITE BLOOD COUNT 14.2 K/mm3 (4.0-10.0)
[2024-01-24 09:16] LABS: POTASSIUM 4.6 mmol/L (3.5-5.1)
[2024-01-24 09:29] LABS: ALBUMIN 2.4 g/dl (3.4-5.0); CALCIUM 8.7 mg/dL (8.5-10.1)
[2024-01-24 09:31] LABS: CREATININE 2.1 mg/dL (0.55-1.3)
[2024-01-24 09:33] LABS: BILIRUBIN,TOTAL 0.6 mg/dL (0.2-1); TOT PROT 7.2 g/dl (6.4-8.2)
[2024-01-24 11:22] LABS: EPI CELLS 5 /uL (0-25.1); HYALINE CASTS 1 /uL (0-3.1); PH,URINE 5.5 (5.0-8.0); URINE APPEARANCE CLEAR; URINE BACTERIA 0 /uL (0-1359); URINE BILIRUBIN NEGATIVE (NEGATIVE); URINE COLOR YELLOW; URINE GLUCOSE (UA) TRACE (NEGATIVE); URINE KETONE NEGATIVE (NEGATIVE); URINE LEUK ESTERASE NEGATIVE (NEGATIVE); URINE NITRITE NEGATIVE (NEGATIVE); URINE PROTEIN 3+ (NEGATIVE); URINE UROBILINOGEN 0.2 mg/dL (0.2-1.0); URINE WBC 5 /uL (0-25.8)
[2024-01-24 11:43] LABS: URINE RBC 63.1 /uL (0-23.9)
[2024-01-24] MEDS ORDERED: INSULIN (NOVOLOG) ASPART 100 UNITS/ML 10ML VIAL ONE ×2 (12:44→17:32)
[2024-01-24] MEDS: VANCOMYCIN/WATER FOR INJ (PEG) 1,000 MG/200 ML BAG IVPB SCH (17:34)
[2024-01-24] MEDS: PIPERACILLIN/TAZOB 4.5 GM 4.5 GM in DEXTROSE 5%-WATER 100 ML IVPB SCH (17:34)
[2024-01-25] MEDS ORDERED: INSULIN (LEVEMIR) 100 UNITS/ML UNITS SQ ONE (07:27)
[2024-01-25] MEDS ORDERED: INSULIN (NOVOLOG) ASPART 100 UNITS/ML 10ML VIAL ONE ×3 (07:27→20:34)
[2024-01-25 11:05] LABS: BASO % 0.4 % (0-2.0); EOS % 4.9 % (0-4.5); HEMATOCRIT 23.2 % (35.4-49); HEMOGLOBIN 7.1 GM/dL (11.7-16.9); LYMPH % 16.7 % (8-40); MCH 21.3 pg (25.7-33.7); MCHC 30.5 g/dl (32.0-35.9); MEAN CELL VOLUME 69.8 fl (80-96); MEAN PLT VOLUME 7.5 fl (7.5-11.1); MONO % 7.5 % (3.8-10.2); NEUT % 70.5 % (42.8-82.8); PLATELET COUNT 350 10^3/uL (134-434); RBC 3.33 M/mm3 (4.00-5.60); RDW 18.8 % (11.9-15.9); WHITE BLOOD COUNT 12.7 K/mm3 (4.0-10.0)
[2024-01-25 11:18] LABS: POTASSIUM 4.7 mmol/L (3.5-5.1)
[2024-01-25 11:22] LABS: CALCIUM 8.5 mg/dL (8.5-10.1)
[2024-01-25 11:23] LABS: ALBUMIN 2.1 g/dl (3.4-5.0); BLOOD UREA NITROGEN 30.9 mg/dL (7-18)
[2024-01-25 11:26] LABS: CREATININE 2.1 mg/dL (0.55-1.3)
[2024-01-25 11:27] LABS: TOT PROT 6.7 g/dl (6.4-8.2)
[2024-01-25 11:29] LABS: BILIRUBIN,TOTAL 0.6 mg/dL (0.2-1)
[2024-01-26] MEDS ORDERED: INSULIN (NOVOLOG) ASPART 100 UNITS/ML 10ML VIAL ONE ×2 (05:00→12:10)
[2024-01-26 08:17] LABS: BASO % 0.3 % (0-2.0); EOS % 4.8 % (0-4.5); HEMATOCRIT 23.5 % (35.4-49); HEMOGLOBIN 7.2 GM/dL (11.7-16.9); LYMPH % 16.6 % (8-40); MCH 21.4 pg (25.7-33.7); MCHC 30.4 g/dl (32.0-35.9); MEAN CELL VOLUME 70.2 fl (80-96); MEAN PLT VOLUME 7.5 fl (7.5-11.1); MONO % 6.5 % (3.8-10.2); NEUT % 71.8 % (42.8-82.8); PLATELET COUNT 363 10^3/uL (134-434); RBC 3.35 M/mm3 (4.00-5.60); RDW 18.7 % (11.9-15.9)
[2024-01-26 08:32] LABS: POTASSIUM 4.6 mmol/L (3.5-5.1)
[2024-01-26 08:54] LABS: ALBUMIN 2.2 g/dl (3.4-5.0); CALCIUM 8.8 mg/dL (8.5-10.1)
[2024-01-26 08:55] LABS: BLOOD UREA NITROGEN 26.7 mg/dL (7-18)
[2024-01-26 08:59] LABS: BILIRUBIN,TOTAL 0.4 mg/dL (0.2-1); TOT PROT 6.8 g/dl (6.4-8.2)
[2024-01-26 10:17] LABS: ANISOCYTOSIS 0; MACROCYTOSIS 0; OVALOCYTE 1+
[2024-01-27 07:27] LABS: BASO % 0.5 % (0-2.0); EOS % 5.9 % (0-4.5); HEMATOCRIT 21.8 % (35.4-49); INR 1.59 (0.83-1.09); LYMPH % 16.2 % (8-40); MCHC 31.8 g/dl (32.0-35.9); MEAN CELL VOLUME 69.2 fl (80-96); MEAN PLT VOLUME 7.1 fl (7.5-11.1); MONO % 7.8 % (3.8-10.2); NEUT % 69.6 % (42.8-82.8); PLATELET COUNT 346 10^3/uL (134-434); PROTHROMBIN TIME (PATIENT) 17.7 SEC (9.7-13.0); RBC 3.16 M/mm3 (4.00-5.60); RDW 18.3 % (11.9-15.9); WHITE BLOOD COUNT 10.4 K/mm3 (4.0-10.0)
[2024-01-27 07:30] LABS: ACTIVATED PTT 33.6 SECONDS (25.2-36.5)
[2024-01-27 07:31] LABS: HEMOGLOBIN 6.9 GM/dL (11.7-16.9)
[2024-01-27 07:40] LABS: POTASSIUM 4.8 mmol/L (3.5-5.1)
[2024-01-27 07:44] LABS: BLOOD UREA NITROGEN 26.9 mg/dL (7-18); CALCIUM 8.4 mg/dL (8.5-10.1)
[2024-01-27] MEDS ORDERED: PROPOFOL 20 ML ONE (10:44)
[2024-01-27] MEDS ORDERED: FENTANYL CITRATE/PF 50 MCG/ML VIAL ONE ×4 (10:44→13:15)
[2024-01-27] MEDS ORDERED: MIDAZOLAM HCL 2 MG/2 ML SINGLE DOSE VIAL ONE (10:44)
[2024-01-27] MEDS ORDERED: ONDANSETRON 4 MG/2 ML VIAL IVPUSH PRN ×2 (10:52→12:30)
[2024-01-27] MEDS ORDERED: LIDOCAINE 1%/EPI 1:100000 (20 ML MULTI DOSE VIAL) ONE (11:01)
[2024-01-27] MEDS: LIDOCAINE 1%/EPI 1:100000 (20 ML MULTI DOSE VIAL) IJ ONE ×2 (11:17)
[2024-01-27] MEDS: PIPERACILLIN/TAZOBACTAM 4.5 GM VIAL IVPB ONE (11:22)
[2024-01-27 15:11] VITALS: RESP 20
[2024-01-27] MEDS: SODIUM CHLORIDE 1,000 ML IV SCH ×2 (16:57→19:30)
[2024-01-27] MEDS: VANCOMYCIN/WATER FOR INJ (PEG) 1,000 MG/200 ML BAG IVPB SCH (16:57)
[2024-01-27 17:04] LABS: HEMATOCRIT 29.2 % (35.4-49); MCH 22.4 pg (25.7-33.7); MCHC 30.8 g/dl (32.0-35.9); MEAN CELL VOLUME 72.9 fl (80-96); PLATELET COUNT 371 10^3/uL (134-434); RDW 20.8 % (11.9-15.9); WHITE BLOOD COUNT 11.1 K/mm3 (4.0-10.0)
[2024-01-27] MEDS: INSULIN ASPART SLIDING SCALE (NOVOLOG) 1 VIAL SQ SCH (17:28)
[2024-01-27] MEDS: PIPERACILLIN/TAZOB 4.5 GM 4.5 GM in DEXTROSE 5%-WATER 100 ML IVPB SCH (18:41)
[2024-01-27] MEDS: SENNOSIDES 8.6MG TABLET (FP) PO SCH (21:45)
[2024-01-27] MEDS: ATORVASTATIN CA 20 MG TABLET (FP) PO SCH (21:45)
[2024-01-27] MEDS: GABAPENTIN 300 MG CAPSULE PO SCH (21:45)
[2024-01-28] MEDS: LEVOTHYROXINE NA 25 MCG TABLET (FP) PO SCH (06:30)
[2024-01-28] MEDS: oxyCODONE HCL 5 MG TABLET PO ONE (06:46)
[2024-01-28] MEDS ORDERED: INSULIN (NOVOLOG) ASPART 100 UNITS/ML 10ML VIAL ONE ×3 (06:59→21:53)
[2024-01-28 08:18] LABS: BASO % 0.5 % (0-2.0); EOS % 6.9 % (0-4.5); HEMATOCRIT 25.3 % (35.4-49); HEMOGLOBIN 8.1 GM/dL (11.7-16.9); LYMPH % 15.7 % (8-40); MCHC 32.1 g/dl (32.0-35.9); MEAN CELL VOLUME 71.7 fl (80-96); MEAN PLT VOLUME 7.4 fl (7.5-11.1); MONO % 7.1 % (3.8-10.2); NEUT % 69.8 % (42.8-82.8); PLATELET COUNT 345 10^3/uL (134-434); RBC 3.52 M/mm3 (4.00-5.60)
[2024-01-28 08:34] LABS: POTASSIUM 4.8 mmol/L (3.5-5.1)
[2024-01-28 08:37] LABS: ALBUMIN 2.2 g/dl (3.4-5.0); BLOOD UREA NITROGEN 25.5 mg/dL (7-18); CALCIUM 8.4 mg/dL (8.5-10.1)
[2024-01-28 08:40] LABS: CREATININE 1.9 mg/dL (0.55-1.3)
[2024-01-28 08:42] LABS: BILIRUBIN,TOTAL 0.8 mg/dL (0.2-1); TOT PROT 6.7 g/dl (6.4-8.2)
[2024-01-28] MEDS: amLODIPine BESYLATE 5 MG TABLET (FP) PO SCH (11:32)
[2024-01-28] MEDS: LOSARTAN POTASSIUM 50 MG TABLET PO SCH (11:32)
[2024-01-28] MEDS: FERROUS SO4 325 MG TABLET (FP) PO SCH (11:33)
[2024-01-28] MEDS: ASPIRIN 81 MG CHEWABLE TABLETS PO SCH (11:33)
[2024-01-29] MEDS ORDERED: INSULIN (NOVOLOG) ASPART 100 UNITS/ML 10ML VIAL ONE ×4 (05:11→21:27)
[2024-01-29] MEDS: oxyCODONE HCL 5 MG TABLET PO PRN (22:53)
[2024-01-30] MEDS ORDERED: INSULIN (NOVOLOG) ASPART 100 UNITS/ML 10ML VIAL ONE (05:44)
[2024-01-30 08:33] LABS: POTASSIUM 4.8 mmol/L (3.5-5.1)
[2024-01-30 08:40] LABS: ALBUMIN 2.2 g/dl (3.4-5.0); BLOOD UREA NITROGEN 21.5 mg/dL (7-18); CALCIUM 8.4 mg/dL (8.5-10.1)
[2024-01-30 08:42] LABS: CREATININE 1.8 mg/dL (0.55-1.3)
[2024-01-30 08:45] LABS: BILIRUBIN,TOTAL 0.4 mg/dL (0.2-1); TOT PROT 7.1 g/dl (6.4-8.2)
[2024-01-30 10:45] VITALS: BP 170/98; PULSE 94; TEMP 98.4
== END 2024-01-30 10:53 | disposition home health service (06) | DRG 364 ==
LOC: JER 10:40 → JERBED 14:19 → J8W 18:38
PROVIDERS: ADMIT Internal Medicine; ATTEND Internal Medicine
PROC: 0J9Q0ZZ Drainage of Right Foot Subcutaneous Tissue and Fascia, Open Approach (ICD-10-PCS; 2024-01-27)
PROC: 3E10X8Z Irrigation of Skin and Mucous Membranes using Irrigating Substance (ICD-10-PCS; 2024-01-27)
PROC: 0JBQ0ZZ Excision of Right Foot Subcutaneous Tissue and Fascia, Open Approach (ICD-10-PCS; principal; 2024-01-27 09:30)
DX: E11.621 Type 2 diabetes mellitus with foot ulcer (principal); L97.518 Non-pressure chronic ulcer of other part of right foot with other specified severity; L02.611 Cutaneous abscess of right foot; I48.91 Unspecified atrial fibrillation; D64.9 Anemia, unspecified; E78.5 Hyperlipidemia, unspecified; E03.9 Hypothyroidism, unspecified; L08.9 Local infection of the skin and subcutaneous tissue, unspecified; R80.9 Proteinuria, unspecified; I12.9 Hypertensive chronic kidney disease with stage 1 through stage 4 chronic kidney disease, or unspecified chronic kidney disease; E11.22 Type 2 diabetes mellitus with diabetic chronic kidney disease; N18.9 Chronic kidney disease, unspecified; E66.01 Morbid (severe) obesity due to excess calories; I25.10 Atherosclerotic heart disease of native coronary artery without angina pectoris; E11.51 Type 2 diabetes mellitus with diabetic peripheral angiopathy without gangrene; E11.40 Type 2 diabetes mellitus with diabetic neuropathy, unspecified; Z89.431 Acquired absence of right foot; Z89.512 Acquired absence of left leg below knee; Z68.41 Body mass index [BMI] 40.0-44.9, adult
CPT/HCPCS: 36415; 36430; 73700-TC-RT; 76775-TC; 80048; 80053; 81003; 82962; 85025; 85027; 85610; 85651; 85730; 86140; 86850; 86900; 86901; 86922; 87040; 87070; 87077; 87205; 88304-TC; 94760; 99285-25; G0463-25; G0480; J0131; P9038; P9058

== ENCOUNTER 2024-04-27 14:16 | Inpatient (IN) | payer OTHER ==
[2024-04-27] MEDS ORDERED: VANCOMYCIN 1 GRAM (PRE-DOCKED) 1,000 MG/250 ML BAG IVPB ONE (15:00)
[2024-04-27] MEDS ORDERED: PIPERACILLIN/TAZOB 4.5 GM 4.5 GM/100 ML BAG IVPB ONE (15:00)
[2024-04-27] MEDS: VANCOMYCIN 1,000 MG in DEXTROSE 5%-WATER - 250 ML IVPB ONE (15:50)
[2024-04-27 16:04] LABS: HEMATOCRIT 25.2 % (35.4-49); HEMOGLOBIN 7.7 GM/dL (11.7-16.9); LYMPH % 14.5 % (8-40); MCH 21.6 pg (25.7-33.7); MCHC 30.7 g/dl (32.0-35.9); MEAN CELL VOLUME 70.3 fl (80-96); MEAN PLT VOLUME 7.7 fl (7.5-11.1); MONO % 6.4 % (3.8-10.2); NEUT % 74.4 % (42.8-82.8); PLATELET COUNT 403 10^3/uL (134-434); RBC 3.58 M/mm3 (4.00-5.60); RDW 18.9 % (11.9-15.9); WHITE BLOOD COUNT 11.2 K/mm3 (4.0-10.0)
[2024-04-27 16:05] LABS: BASO % 0.7 % (0-2.0)
[2024-04-27 16:20] LABS: POTASSIUM 4.9 mmol/L (3.5-5.1)
[2024-04-27 16:24] LABS: ALBUMIN 2.3 g/dl (3.4-5.0); BLOOD UREA NITROGEN 32.7 mg/dL (7-18); CALCIUM 8.6 mg/dL (8.5-10.1)
[2024-04-27 16:28] LABS: CREATININE 2.1 mg/dL (0.55-1.3)
[2024-04-27 16:29] LABS: BILIRUBIN,TOTAL 0.4 mg/dL (0.2-1); TOT PROT 7.4 g/dl (6.4-8.2)
[2024-04-27] MEDS ORDERED: ACETAMINOPHEN INJECTION 100 ML IVPB ONE (16:29)
[2024-04-27 16:32] LABS: ANISOCYTOSIS 2+; MACROCYTOSIS 0; OVALOCYTE 1+
[2024-04-27 16:40] LABS: ERYTHROCYTE SEDIMENTATION RATE 119 mm/hr (0-20)
[2024-04-27] MEDS: ACETAMINOPHEN 1000 MG/100 ML BAG IVPB ONE (17:07)
[2024-04-27] MEDS: PIPERACILLIN/TAZOB 4.5 GM 4.5 GM in DEXTROSE 5%-WATER - 100 ML IVPB ONE (17:25)
[2024-04-27 20:12] LABS: HIV INTERPRETATION NEGATIVE (NEGATIVE)
[2024-04-27] MEDS ORDERED: GABAPENTIN 300 MG CAPSULE ONE (20:50)
[2024-04-27] MEDS ORDERED: APIXABAN 5 MG TABLET ONE (20:50)
[2024-04-27] MEDS ORDERED: ATORVASTATIN CA 10 MG TABLET (FP) ONE (20:50)
[2024-04-27] MEDS: APIXABAN 5 MG TABLET PO SCH (22:12)
[2024-04-27] MEDS: GABAPENTIN 300 MG CAPSULE PO SCH (22:12)
[2024-04-27] MEDS: ATORVASTATIN CA 20 MG TABLET (FP) PO SCH (22:12)
[2024-04-28] MEDS: ACETAMINOPHEN 325 MG TABLET (FP) PO PRN (00:27)
[2024-04-28] MEDS: oxyCODONE HCL 5 MG TABLET PO PRN (00:28)
[2024-04-28] MEDS: PIPERACILLIN/TAZOB 3.375 GM 3.375 GM in DEXTROSE 5%-WATER - 50 ML IVPB SCH ×2 (02:00→10:40)
[2024-04-28 08:10] LABS: BASO % 1.1 % (0-2.0); HEMATOCRIT 22.7 % (35.4-49); HEMOGLOBIN 7.1 GM/dL (11.7-16.9); LYMPH % 17.2 % (8-40); MCH 21.8 pg (25.7-33.7); MEAN CELL VOLUME 70.2 fl (80-96); MONO % 7.4 % (3.8-10.2); NEUT % 67.3 % (42.8-82.8); PLATELET COUNT 376 10^3/uL (134-434); RBC 3.24 M/mm3 (4.00-5.60); RDW 18.9 % (11.9-15.9); WHITE BLOOD COUNT 9.6 K/mm3 (4.0-10.0)
[2024-04-28 08:29] LABS: POTASSIUM 4.6 mmol/L (3.5-5.1)
[2024-04-28 08:32] LABS: ALBUMIN 2.1 g/dl (3.4-5.0); CALCIUM 7.8 mg/dL (8.5-10.1)
[2024-04-28 08:33] LABS: BLOOD UREA NITROGEN 34.1 mg/dL (7-18)
[2024-04-28 08:36] LABS: CREATININE 2.1 mg/dL (0.55-1.3)
[2024-04-28 08:37] LABS: BILIRUBIN,TOTAL 0.3 mg/dL (0.2-1); TOT PROT 6.3 g/dl (6.4-8.2)
[2024-04-28] MEDS: LOSARTAN POTASSIUM 50 MG TABLET PO SCH (09:52)
[2024-04-28] MEDS: amLODIPine BESYLATE 5 MG TABLET (FP) PO SCH (09:53)
[2024-04-28] MEDS: ASPIRIN 81 MG CHEWABLE TABLETS PO SCH (11:42)
[2024-04-28] MEDS ORDERED: PIPERACILLIN/TAZOB 2.25 GM 2.25 GM in DEXTROSE 5%-WATER - 50 ML IVPB SCH (11:50)
[2024-04-28] MEDS: SODIUM CHLORIDE 0.45% 1,000 ML IV SCH (18:02)
[2024-04-28] MEDS: PIPERACILLIN/TAZOB 4.5 GM 4.5 GM in DEXTROSE 5%-WATER 100 ML IVPB SCH (18:03)
[2024-04-29 08:51] LABS: POTASSIUM 4.8 mmol/L (3.5-5.1)
[2024-04-29 08:53] LABS: CALCIUM 8.2 mg/dL (8.5-10.1)
[2024-04-29 08:54] LABS: ALBUMIN 2.2 g/dl (3.4-5.0)
[2024-04-29 08:58] LABS: BILIRUBIN,TOTAL 0.3 mg/dL (0.2-1); CREATININE 2.1 mg/dL (0.55-1.3)
[2024-04-29 09:00] LABS: TOT PROT 6.5 g/dl (6.4-8.2)
[2024-04-29] MEDS: INSULIN ASPART SLIDING SCALE (NOVOLOG) 1 VIAL SQ SCH (21:29)
[2024-04-30] MEDS ORDERED: INSULIN ASPART SLIDING SCALE (NOVOLOG) 1 VIAL SQ ONE (11:48)
[2024-05-01] MEDS: ACETAMINOPHEN 325 MG TABLET (FP) PO PRN (01:30)
[2024-05-01 06:55] LABS: EPI CELLS 2 /uL (0-25.1); HYALINE CASTS 0 /uL (0-3.1); PH,URINE 5.5 (5.0-8.0); URINE APPEARANCE CLEAR; URINE BACTERIA 3 /uL (0-1359); URINE BILIRUBIN NEGATIVE (NEGATIVE); URINE COLOR YELLOW; URINE GLUCOSE (UA) 1+ (NEGATIVE); URINE KETONE NEGATIVE (NEGATIVE); URINE LEUK ESTERASE NEGATIVE (NEGATIVE); URINE NITRITE NEGATIVE (NEGATIVE); URINE PROTEIN 3+ (NEGATIVE); URINE RBC 20 /uL (0-23.9); URINE UROBILINOGEN 0.2 mg/dL (0.2-1.0); URINE WBC 6 /uL (0-25.8)
[2024-05-01] MEDS ORDERED: INSULIN ASPART SLIDING SCALE (NOVOLOG) 1 VIAL SQ ONE (12:02)
[2024-05-02 09:50] LABS: BASO % 0.7 % (0-2.0); EOS % 8.5 % (0-4.5); HEMATOCRIT 22.3 % (35.4-49); HEMOGLOBIN 7.1 GM/dL (11.7-16.9); MCH 22.1 pg (25.7-33.7); MCHC 31.9 g/dl (32.0-35.9); MEAN CELL VOLUME 69.3 fl (80-96); MONO % 5.2 % (3.8-10.2); NEUT % 65.6 % (42.8-82.8); PLATELET COUNT 383 10^3/uL (134-434); RBC 3.22 M/mm3 (4.00-5.60); RDW 18.7 % (11.9-15.9); WHITE BLOOD COUNT 9.4 K/mm3 (4.0-10.0)
[2024-05-02 10:15] LABS: POTASSIUM 5.2 mmol/L (3.5-5.1)
[2024-05-02 10:24] LABS: ALBUMIN 2.3 g/dl (3.4-5.0)
[2024-05-02 10:25] LABS: BLOOD UREA NITROGEN 24.3 mg/dL (7-18)
[2024-05-02 10:26] LABS: CALCIUM 8.5 mg/dL (8.5-10.1)
[2024-05-02 10:28] LABS: CREATININE 1.9 mg/dL (0.55-1.3)
[2024-05-02 10:29] LABS: BILIRUBIN,TOTAL 0.4 mg/dL (0.2-1); TOT PROT 6.8 g/dl (6.4-8.2)
[2024-05-02] MEDS: SODIUM ZIRCONIUM CYCLOSILICATE (LOKELMA) 5 GM PACKET PO SCH (16:18)
[2024-05-03] MEDS ORDERED: ACETAMINOPHEN 325 MG TABLET (FP) PO PRN (09:30)
[2024-05-03] MEDS: oxyCODONE HCL 5 MG TABLET PO PRN (09:36)
[2024-05-03] MEDS ORDERED: INSULIN ASPART SLIDING SCALE (NOVOLOG) 1 VIAL SQ ONE (11:52)
[2024-05-03 19:34] LABS: CALCIUM 8.8 mg/dL (8.5-10.1)
[2024-05-03 19:35] LABS: ALBUMIN 2.6 g/dl (3.4-5.0); BLOOD UREA NITROGEN 23.8 mg/dL (7-18)
[2024-05-03 19:38] LABS: CREATININE 2.1 mg/dL (0.55-1.3)
[2024-05-03 19:39] LABS: BILIRUBIN,TOTAL 0.6 mg/dL (0.2-1); TOT PROT 7.6 g/dl (6.4-8.2)
[2024-05-03 19:40] LABS: BASO % 0.8 % (0-2.0); EOS % 9.1 % (0-4.5); HEMATOCRIT 31.7 % (35.4-49); HEMOGLOBIN 10.1 GM/dL (11.7-16.9); LYMPH % 19.4 % (8-40); MCH 23.4 pg (25.7-33.7); MCHC 31.9 g/dl (32.0-35.9); MEAN CELL VOLUME 73.4 fl (80-96); MEAN PLT VOLUME 7.2 fl (7.5-11.1); MONO % 6.2 % (3.8-10.2); NEUT % 64.5 % (42.8-82.8); PLATELET COUNT 390 10^3/uL (134-434); RBC 4.32 M/mm3 (4.00-5.60); RDW 20.6 % (11.9-15.9)
[2024-05-03 20:39] LABS: ANISOCYTOSIS 2+; MACROCYTOSIS 0; OVALOCYTE 1+
[2024-05-04 10:29] LABS: POTASSIUM 4.9 mmol/L (3.5-5.1)
[2024-05-04 10:32] LABS: ALBUMIN 2.4 g/dl (3.4-5.0); BLOOD UREA NITROGEN 24.7 mg/dL (7-18); CALCIUM 8.5 mg/dL (8.5-10.1)
[2024-05-04 10:36] LABS: BILIRUBIN,TOTAL 0.6 mg/dL (0.2-1)
[2024-05-04 10:37] LABS: TOT PROT 6.8 g/dl (6.4-8.2)
[2024-05-04] MEDS: MINERAL OIL/PET HY-PHL TOPICAL OINTMENT 454 GM JAR TP SCH (11:05)
[2024-05-04] MEDS: AMOX TR/POT CLAV 500MG/125MG TABLETS (FP) PO SCH (16:36)
[2024-05-05] MEDS ORDERED: INSULIN ASPART SLIDING SCALE (NOVOLOG) 1 VIAL SQ ONE (17:16)
[2024-05-05] MEDS: POLYETHYLENE GLYCOL (HEALTHYLAX) 3350 17 GM PACKET PO SCH (18:21)
[2024-05-06] MEDS ORDERED: INSULIN ASPART SLIDING SCALE (NOVOLOG) 1 VIAL SQ ONE ×2 (05:46→21:24)
[2024-05-07] MEDS ORDERED: INSULIN ASPART SLIDING SCALE (NOVOLOG) 1 VIAL SQ ONE ×2 (12:21→18:04)
[2024-05-08 09:24] LABS: INR 1.36 (0.83-1.09); PROTHROMBIN TIME (PATIENT) 15.2 SEC (9.7-13.0)
[2024-05-08 09:27] LABS: ACTIVATED PTT 37.1 SECONDS (25.2-36.5)
[2024-05-08] MEDS ORDERED: INSULIN ASPART SLIDING SCALE (NOVOLOG) 1 VIAL SQ ONE ×2 (12:33→17:31)
[2024-05-08 21:55] LABS: N-TERMINAL BNP 898.5 pg/ml (5-125)
[2024-05-09 10:01] LABS: BASO % 0.4 % (0-2.0); EOS % 7.1 % (0-4.5); HEMATOCRIT 31.1 % (35.4-49); HEMOGLOBIN 9.8 GM/dL (11.7-16.9); LYMPH % 25.3 % (8-40); MCH 23.2 pg (25.7-33.7); MCHC 31.4 g/dl (32.0-35.9); MEAN CELL VOLUME 73.8 fl (80-96); MEAN PLT VOLUME 7.6 fl (7.5-11.1); MONO % 7.2 % (3.8-10.2); PLATELET COUNT 312 10^3/uL (134-434); RBC 4.21 M/mm3 (4.00-5.60); RDW 21.4 % (11.9-15.9); WHITE BLOOD COUNT 9.2 K/mm3 (4.0-10.0)
[2024-05-09 10:24] LABS: POTASSIUM 4.9 mmol/L (3.5-5.1)
[2024-05-09 10:27] LABS: ALBUMIN 2.5 g/dl (3.4-5.0); BLOOD UREA NITROGEN 34.5 mg/dL (7-18); CALCIUM 8.8 mg/dL (8.5-10.1)
[2024-05-09 10:32] LABS: BILIRUBIN,TOTAL 0.4 mg/dL (0.2-1); TOT PROT 6.9 g/dl (6.4-8.2)
[2024-05-09 10:33] LABS: ANISOCYTOSIS 1+; MACROCYTOSIS 0
[2024-05-09] MEDS ORDERED: ONDANSETRON 4 MG/2 ML VIAL IVPUSH PRN ×2 (15:47→17:46)
[2024-05-09] MEDS ORDERED: LACTATED RINGERS SOLUTION 1,000 ML IV SCH ×2 (16:00→17:46)
[2024-05-09] MEDS ORDERED: MIDAZOLAM HCL 2 MG/2 ML SINGLE DOSE VIAL ONE (16:11)
[2024-05-09] MEDS ORDERED: LIDOCAINE HCL/PF 2% SDV 5ML VIAL ONE (16:11)
[2024-05-09] MEDS ORDERED: ONDANSETRON 4 MG/2 ML VIAL ONE (16:11)
[2024-05-09] MEDS ORDERED: PROPOFOL 20 ML ONE (16:11)
[2024-05-09] MEDS ORDERED: SEVOFLURANE 250 ML BTL ONE (16:11)
[2024-05-09] MEDS ORDERED: ceFAZolin SODIUM 1 GM VIAL ONE (16:28)
[2024-05-09] MEDS ORDERED: BACITRACIN ZINC 15 GM TUBE TOPICAL OINTMENT ONE (16:51)
[2024-05-09] MEDS ORDERED: INSULIN ASPART SLIDING SCALE (NOVOLOG) 1 VIAL SQ ONE (18:44)
[2024-05-09] MEDS: INSULIN ASPART SLIDING SCALE (NOVOLOG) 1 VIAL SQ SCH (18:48)
[2024-05-09] MEDS: AMOX TR/POT CLAV 500MG/125MG TABLETS (FP) PO SCH (18:48)
[2024-05-09] MEDS: ATORVASTATIN CA 20 MG TABLET (FP) PO SCH (21:58)
[2024-05-09] MEDS: GABAPENTIN 300 MG CAPSULE PO SCH (21:58)
[2024-05-09] MEDS: oxyCODONE HCL 5 MG TABLET PO PRN (21:59)
[2024-05-10] MEDS: ACETAMINOPHEN 325 MG TABLET (FP) PO PRN (05:21)
[2024-05-10 08:38] LABS: BASO % 0.5 % (0-2.0); EOS % 5.7 % (0-4.5); HEMATOCRIT 29.8 % (35.4-49); HEMOGLOBIN 9.5 GM/dL (11.7-16.9); LYMPH % 21.3 % (8-40); MCH 23.1 pg (25.7-33.7); MCHC 31.9 g/dl (32.0-35.9); MEAN CELL VOLUME 72.6 fl (80-96); MEAN PLT VOLUME 7.3 fl (7.5-11.1); MONO % 6.6 % (3.8-10.2); NEUT % 65.9 % (42.8-82.8); PLATELET COUNT 284 10^3/uL (134-434); RDW 21.7 % (11.9-15.9); WHITE BLOOD COUNT 9.9 K/mm3 (4.0-10.0)
[2024-05-10 09:09] LABS: POTASSIUM 4.9 mmol/L (3.5-5.1)
[2024-05-10 09:13] LABS: ALBUMIN 2.5 g/dl (3.4-5.0); BLOOD UREA NITROGEN 35.2 mg/dL (7-18); CALCIUM 8.6 mg/dL (8.5-10.1)
[2024-05-10 09:15] LABS: CREATININE 2.1 mg/dL (0.55-1.3)
[2024-05-10 09:18] LABS: BILIRUBIN,TOTAL 0.4 mg/dL (0.2-1); TOT PROT 6.5 g/dl (6.4-8.2)
[2024-05-10] MEDS: MINERAL OIL/PET HY-PHL TOPICAL OINTMENT 454 GM JAR TP SCH (11:02)
[2024-05-10] MEDS: LOSARTAN POTASSIUM 50 MG TABLET PO SCH (11:03)
[2024-05-10] MEDS: amLODIPine BESYLATE 5 MG TABLET (FP) PO SCH (11:03)
[2024-05-10] MEDS: POLYETHYLENE GLYCOL (HEALTHYLAX) 3350 17 GM PACKET PO SCH (11:04)
[2024-05-10 11:52] VITALS: BMI 41.8
[2024-05-10] MEDS: APIXABAN 5 MG TABLET PO SCH (14:34)
[2024-05-10] MEDS: BACITRACIN ZINC 15 GM TUBE TOPICAL OINTMENT TP SCH (17:07)
[2024-05-10] MEDS: AMINO ACIDS/PROTEIN HYDROLYS 30 ML LIQUID.PKT PO SCH (17:23)
[2024-05-10] MEDS: SENNOSIDES 8.6MG TABLET (FP) PO SCH (22:33)
[2024-05-11 08:50] LABS: BASO % 0.6 % (0-2.0); EOS % 8.9 % (0-4.5); HEMATOCRIT 30.2 % (35.4-49); HEMOGLOBIN 9.7 GM/dL (11.7-16.9); LYMPH % 26.4 % (8-40); MCH 23.2 pg (25.7-33.7); MCHC 32.1 g/dl (32.0-35.9); MEAN CELL VOLUME 72.3 fl (80-96); MONO % 7.8 % (3.8-10.2); NEUT % 56.3 % (42.8-82.8); PLATELET COUNT 281 10^3/uL (134-434); RBC 4.17 M/mm3 (4.00-5.60); RDW 21.5 % (11.9-15.9); WHITE BLOOD COUNT 8.2 K/mm3 (4.0-10.0)
[2024-05-11 09:20] LABS: ALBUMIN 2.5 g/dl (3.4-5.0); BLOOD UREA NITROGEN 35.2 mg/dL (7-18); CALCIUM 8.9 mg/dL (8.5-10.1)
[2024-05-11 09:27] LABS: BILIRUBIN,TOTAL 0.4 mg/dL (0.2-1); TOT PROT 6.5 g/dl (6.4-8.2)
[2024-05-11] MEDS: MULTIVITAMINS (DAILY MVI) TABLET (FP) PO SCH (11:07)
[2024-05-11] MEDS: DOCUSATE SODIUM 100 MG CAPSULE (FP) PO SCH (22:03)
[2024-05-13] MEDS: oxyCODONE HCL 5 MG TABLET PO PRN (02:14)
[2024-05-14] MEDS: BACITRACIN ZINC 15 GM TUBE TOPICAL OINTMENT TP SCH (09:09)
[2024-05-14 10:27] LABS: BASO % 0.6 % (0-2.0); EOS % 7.9 % (0-4.5); HEMOGLOBIN 9.5 GM/dL (11.7-16.9); LYMPH % 22.3 % (8-40); MCH 23.3 pg (25.7-33.7); MCHC 31.7 g/dl (32.0-35.9); MEAN CELL VOLUME 73.4 fl (80-96); MONO % 8.1 % (3.8-10.2); NEUT % 61.1 % (42.8-82.8); PLATELET COUNT 261 10^3/uL (134-434); RBC 4.09 M/mm3 (4.00-5.60); RDW 21.8 % (11.9-15.9); WHITE BLOOD COUNT 8.7 K/mm3 (4.0-10.0)
[2024-05-14 10:47] LABS: POTASSIUM 4.9 mmol/L (3.5-5.1)
[2024-05-14 10:49] LABS: ALBUMIN 2.4 g/dl (3.4-5.0); BLOOD UREA NITROGEN 37.9 mg/dL (7-18); CALCIUM 8.6 mg/dL (8.5-10.1)
[2024-05-14 10:53] LABS: CREATININE 1.9 mg/dL (0.55-1.3)
[2024-05-14 10:54] LABS: BILIRUBIN,TOTAL 0.2 mg/dL (0.2-1); TOT PROT 6.3 g/dl (6.4-8.2)
[2024-05-16] MEDS: BACITRACIN ZINC 15 GM TUBE TOPICAL OINTMENT TP SCH (10:06)
[2024-05-16] MEDS ORDERED: INSULIN ASPART SLIDING SCALE (NOVOLOG) 1 VIAL SQ ONE ×2 (11:18→17:09)
[2024-05-17] MEDS ORDERED: INSULIN ASPART SLIDING SCALE (NOVOLOG) 1 VIAL SQ ONE (11:04)
[2024-05-17 13:51] VITALS: BP 116/79; PULSE 80; RESP 18; TEMP 98.4
== END 2024-05-17 14:06 | DRG 312 ==
LOC: JER 14:16 → JERBED 16:27 → J8W 22:30
PROVIDERS: ADMIT Internal Medicine; ATTEND Internal Medicine
PROC: 30233N1 Transfusion of Nonautologous Red Blood Cells into Peripheral Vein, Percutaneous Approach (ICD-10-PCS; 2024-05-03)
PROC: 0HBHXZZ Excision of Right Upper Leg Skin, External Approach (ICD-10-PCS; 2024-05-09)
PROC: 0HRMX74 Replacement of Right Foot Skin with Autologous Tissue Substitute, Partial Thickness, External Approach (ICD-10-PCS; principal; 2024-05-09 16:00)
DX: T87.43 Infection of amputation stump, right lower extremity (principal); E11.22 Type 2 diabetes mellitus with diabetic chronic kidney disease; L03.115 Cellulitis of right lower limb; E11.42 Type 2 diabetes mellitus with diabetic polyneuropathy; E11.621 Type 2 diabetes mellitus with foot ulcer; E11.51 Type 2 diabetes mellitus with diabetic peripheral angiopathy without gangrene; E87.5 Hyperkalemia; Z68.41 Body mass index [BMI] 40.0-44.9, adult; Z89.612 Acquired absence of left leg above knee; Y83.9 Surgical procedure, unspecified as the cause of abnormal reaction of the patient, or of later complication, without mention of misadventure at the time of the procedure; L97.509 Non-pressure chronic ulcer of other part of unspecified foot with unspecified severity; S99.821A Other specified injuries of right foot, initial encounter; X58.XXXA Exposure to other specified factors, initial encounter; Y93.9 Activity, unspecified; Y92.89 Other specified places as the place of occurrence of the external cause; Y99.9 Unspecified external cause status; D64.9 Anemia, unspecified; E03.9 Hypothyroidism, unspecified; E66.9 Obesity, unspecified; E78.5 Hyperlipidemia, unspecified; I12.9 Hypertensive chronic kidney disease with stage 1 through stage 4 chronic kidney disease, or unspecified chronic kidney disease; I25.10 Atherosclerotic heart disease of native coronary artery without angina pectoris; L03.90 Cellulitis, unspecified; L08.9 Local infection of the skin and subcutaneous tissue, unspecified; N18.9 Chronic kidney disease, unspecified
CPT/HCPCS: 36415; 36430; 73630-TC-RT-FY; 76775-TC; 80053; 80061; 81003; 82570; 82962; 83036; 83880; 84156; 84443; 85025; 85610; 85651; 85730; 86140; 86803; 86850; 86900; 86901; 86922; 87040; 87070; 87077; 87186; 87205; 87389; 87635; 93005; 93010; 93306-TC; 94760; 97162-GP; 99285-25; G0463-25; J0131; P9058

== ENCOUNTER 2024-10-05 15:46 | Inpatient (IN) | payer OTHER ==
[2024-10-05 18:11] LABS: VENOUS BASE EXCESS -6.7 mmol/L (-2-2); VENOUS O2 SATURATION 63.4 % (70-80); VENOUS PCO2 44.4 mmHg (38-52); VENOUS PH 7.271 (7.310-7.410)
[2024-10-05 18:13] LABS: BASO % 0.4 % (0-2.0); EOS % 0.7 % (0-4.5); HEMATOCRIT 34.4 % (35.4-49); HEMOGLOBIN 10.5 GM/dL (11.7-16.9); LYMPH % 9.8 % (8-40); MCH 23.4 pg (25.7-33.7); MCHC 30.4 g/dl (32.0-35.9); MEAN CELL VOLUME 76.9 fl (80-96); MEAN PLT VOLUME 7.3 fl (7.5-11.1); MONO % 5.2 % (3.8-10.2); NEUT % 83.9 % (42.8-82.8); PLATELET COUNT 315 10^3/uL (134-434); RBC 4.47 M/mm3 (4.00-5.60); RDW 20.3 % (11.9-15.9); WHITE BLOOD COUNT 11.3 K/mm3 (4.0-10.0)
[2024-10-05 18:20] LABS: INR 1.33 (0.83-1.09); PROTHROMBIN TIME (PATIENT) 15.2 SEC (9.7-13.0)
[2024-10-05 18:22] LABS: ACTIVATED PTT 37.4 SECONDS (25.2-36.5)
[2024-10-05 18:33] LABS: POTASSIUM 4.5 mmol/L (3.5-5.1)
[2024-10-05 18:35] LABS: ALBUMIN 2.8 g/dl (3.4-5.0); BLOOD UREA NITROGEN 31.2 mg/dL (7-18); CALCIUM 8.8 mg/dL (8.5-10.1); MAGNESIUM 2.1 mg/dL (1.8-2.4)
[2024-10-05 18:38] LABS: CREATININE 1.9 mg/dL (0.55-1.3)
[2024-10-05 18:40] LABS: BILIRUBIN,TOTAL 0.6 mg/dL (0.2-1); TOT PROT 7.4 g/dl (6.4-8.2)
[2024-10-05] MEDS ORDERED: FUROSEMIDE 40 MG/4 ML INJECTABLE VIAL ONE (19:10)
[2024-10-05] MEDS: FUROSEMIDE 40 MG/4 ML INJECTABLE VIAL IVPUSH ONE (19:20)
[2024-10-05 19:28] LABS: EPI CELLS 7 /uL (0-25.1); HYALINE CASTS 2 /uL (0-3.1); PH,URINE 5.5 (5.0-8.0); URINE APPEARANCE CLEAR; URINE BACTERIA 3 /uL (0-1359); URINE BILIRUBIN NEGATIVE (NEGATIVE); URINE COLOR YELLOW; URINE GLUCOSE (UA) NEGATIVE (NEGATIVE); URINE KETONE NEGATIVE (NEGATIVE); URINE LEUK ESTERASE NEGATIVE (NEGATIVE); URINE NITRITE NEGATIVE (NEGATIVE); URINE PROTEIN 3+ (NEGATIVE); URINE RBC 15 /uL (0-23.9); URINE UROBILINOGEN 0.2 mg/dL (0.2-1.0); URINE WBC 8 /uL (0-25.8)
[2024-10-06] MEDS ORDERED: amLODIPine BESYLATE 5 MG TABLET (FP) ONE (10:00)
[2024-10-06] MEDS ORDERED: APIXABAN 5 MG TABLET ONE (10:00)
[2024-10-06] MEDS ORDERED: FUROSEMIDE 40 MG/4 ML INJECTABLE VIAL ONE (10:01)
[2024-10-06] MEDS ORDERED: ASPIRIN 81 MG CHEWABLE TABLETS ONE (10:01)
[2024-10-06] MEDS: APIXABAN 5 MG TABLET PO SCH (10:25)
[2024-10-06] MEDS: amLODIPine BESYLATE 5 MG TABLET (FP) PO SCH (10:25)
[2024-10-06] MEDS: ASPIRIN 81 MG CHEWABLE TABLETS PO SCH (10:25)
[2024-10-06] MEDS: FUROSEMIDE 40 MG/4 ML INJECTABLE VIAL IVPUSH SCH (10:49)
[2024-10-06 13:03] LABS: HEMATOCRIT 30.8 % (35.4-49); HEMOGLOBIN 9.3 GM/dL (11.7-16.9); MCH 23.5 pg (25.7-33.7); MCHC 30.4 g/dl (32.0-35.9); MEAN CELL VOLUME 77.5 fl (80-96); MEAN PLT VOLUME 8.1 fl (7.5-11.1); PLATELET COUNT 247 10^3/uL (134-434); RBC 3.97 M/mm3 (4.00-5.60); RDW 20.2 % (11.9-15.9); WHITE BLOOD COUNT 11.8 K/mm3 (4.0-10.0)
[2024-10-06 13:31] LABS: POTASSIUM 4.7 mmol/L (3.5-5.1)
[2024-10-06 13:36] LABS: BLOOD UREA NITROGEN 36.8 mg/dL (7-18); CALCIUM 8.1 mg/dL (8.5-10.1)
[2024-10-06 13:37] LABS: ALBUMIN 2.5 g/dl (3.4-5.0)
[2024-10-06 13:40] LABS: CREATININE 2.1 mg/dL (0.55-1.3)
[2024-10-06 13:42] LABS: BILIRUBIN,TOTAL 0.7 mg/dL (0.2-1); TOT PROT 6.4 g/dl (6.4-8.2)
[2024-10-06 13:58] LABS: ANISOCYTOSIS 2+; MACROCYTOSIS 1+; OVALOCYTE 1+
[2024-10-06 16:10] VITALS: BMI 21.2
[2024-10-06] MEDS: GABAPENTIN 300 MG CAPSULE PO SCH (21:10)
[2024-10-06] MEDS: SENNOSIDES 8.6MG TABLET (FP) PO SCH (21:10)
[2024-10-06] MEDS: ATORVASTATIN CA 20 MG TABLET (FP) PO SCH (21:10)
[2024-10-07 12:29] LABS: BASO % 0.6 % (0-2.0); EOS % 6.6 % (0-4.5); HEMATOCRIT 30.6 % (35.4-49); HEMOGLOBIN 9.4 GM/dL (11.7-16.9); LYMPH % 20.5 % (8-40); MCH 23.7 pg (25.7-33.7); MCHC 30.6 g/dl (32.0-35.9); MEAN CELL VOLUME 77.6 fl (80-96); MEAN PLT VOLUME 7.9 fl (7.5-11.1); MONO % 8.8 % (3.8-10.2); NEUT % 63.5 % (42.8-82.8); PLATELET COUNT 287 10^3/uL (134-434); RBC 3.95 M/mm3 (4.00-5.60); RDW 20.1 % (11.9-15.9); WHITE BLOOD COUNT 9.7 K/mm3 (4.0-10.0)
[2024-10-07 12:53] LABS: POTASSIUM 4.5 mmol/L (3.5-5.1)
[2024-10-07 12:56] LABS: CALCIUM 8.4 mg/dL (8.5-10.1)
[2024-10-07 12:57] LABS: ALBUMIN 2.6 g/dl (3.4-5.0); BLOOD UREA NITROGEN 37.1 mg/dL (7-18)
[2024-10-07 13:00] LABS: CREATININE 2.3 mg/dL (0.55-1.3)
[2024-10-07 13:01] LABS: BILIRUBIN,TOTAL 0.6 mg/dL (0.2-1)
[2024-10-07 13:02] LABS: TOT PROT 6.4 g/dl (6.4-8.2)
[2024-10-08 07:12] LABS: BASO % 0.6 % (0-2.0); EOS % 6.9 % (0-4.5); HEMATOCRIT 31.8 % (35.4-49); HEMOGLOBIN 9.5 GM/dL (11.7-16.9); LYMPH % 20.8 % (8-40); MCH 23.6 pg (25.7-33.7); MEAN CELL VOLUME 78.7 fl (80-96); MEAN PLT VOLUME 7.9 fl (7.5-11.1); MONO % 8.6 % (3.8-10.2); NEUT % 63.1 % (42.8-82.8); PLATELET COUNT 272 10^3/uL (134-434); RBC 4.04 M/mm3 (4.00-5.60); RDW 20.5 % (11.9-15.9); WHITE BLOOD COUNT 8.8 K/mm3 (4.0-10.0)
[2024-10-08 07:30] LABS: POTASSIUM 4.7 mmol/L (3.5-5.1)
[2024-10-08 07:36] LABS: ALBUMIN 2.7 g/dl (3.4-5.0); BLOOD UREA NITROGEN 36.5 mg/dL (7-18); CALCIUM 8.4 mg/dL (8.5-10.1)
[2024-10-08 07:39] LABS: CREATININE 2.3 mg/dL (0.55-1.3)
[2024-10-08 07:41] LABS: BILIRUBIN,TOTAL 0.6 mg/dL (0.2-1); TOT PROT 6.8 g/dl (6.4-8.2)
[2024-10-08 09:45] LABS: ANISOCYTOSIS 1+; MACROCYTOSIS 0; OVALOCYTE 0
[2024-10-08] MEDS: PANTOPRAZOLE 40 MG TABLET PO SCH (10:05)
[2024-10-08] MEDS: AMOX TR/POT CLAV 875MG/125MG TABLETS (FP) PO SCH (17:39)
[2024-10-09 08:25] LABS: BASO % 0.4 % (0-2.0); EOS % 7.6 % (0-4.5); HEMATOCRIT 32.8 % (35.4-49); HEMOGLOBIN 10.1 GM/dL (11.7-16.9); LYMPH % 20.6 % (8-40); MCH 24.1 pg (25.7-33.7); MCHC 30.7 g/dl (32.0-35.9); MEAN CELL VOLUME 78.6 fl (80-96); MEAN PLT VOLUME 7.8 fl (7.5-11.1); MONO % 7.9 % (3.8-10.2); NEUT % 63.5 % (42.8-82.8); PLATELET COUNT 261 10^3/uL (134-434); RBC 4.18 M/mm3 (4.00-5.60); RDW 20.3 % (11.9-15.9); WHITE BLOOD COUNT 8.7 K/mm3 (4.0-10.0)
[2024-10-09 08:38] LABS: POTASSIUM 4.9 mmol/L (3.5-5.1)
[2024-10-09 08:50] LABS: CALCIUM 8.8 mg/dL (8.5-10.1)
[2024-10-09 08:51] LABS: ALBUMIN 2.8 g/dl (3.4-5.0); BLOOD UREA NITROGEN 33.8 mg/dL (7-18)
[2024-10-09 08:54] LABS: CREATININE 2.4 mg/dL (0.55-1.3)
[2024-10-10] MEDS: LEVOTHYROXINE NA 25 MCG TABLET (FP) PO SCH (06:09)
[2024-10-10] MEDS: INSULIN (LEVEMIR) 100 UNITS/ML UNITS SQ SCH (06:09)
[2024-10-10 08:56] LABS: BASO % 0.3 % (0-2.0); EOS % 9.1 % (0-4.5); HEMATOCRIT 30.6 % (35.4-49); HEMOGLOBIN 9.2 GM/dL (11.7-16.9); LYMPH % 16.8 % (8-40); MCH 23.6 pg (25.7-33.7); MCHC 30.2 g/dl (32.0-35.9); MEAN CELL VOLUME 78.2 fl (80-96); MEAN PLT VOLUME 8.1 fl (7.5-11.1); MONO % 8.9 % (3.8-10.2); NEUT % 64.9 % (42.8-82.8); PLATELET COUNT 259 10^3/uL (134-434); RBC 3.92 M/mm3 (4.00-5.60); WHITE BLOOD COUNT 8.3 K/mm3 (4.0-10.0)
[2024-10-10 09:04] LABS: POTASSIUM 4.9 mmol/L (3.5-5.1)
[2024-10-10 09:11] LABS: ALBUMIN 2.7 g/dl (3.4-5.0)
[2024-10-10 09:12] LABS: BLOOD UREA NITROGEN 33.2 mg/dL (7-18); CALCIUM 8.7 mg/dL (8.5-10.1); CREATININE 2.3 mg/dL (0.55-1.3)
[2024-10-10 09:14] LABS: BILIRUBIN,TOTAL 0.6 mg/dL (0.2-1); TOT PROT 6.7 g/dl (6.4-8.2)
[2024-10-10] MEDS: FUROSEMIDE 40 MG TABLET (FP) PO SCH (15:45)
[2024-10-11] MEDS ORDERED: FUROSEMIDE 40 MG TABLET (FP) PO SCH (10:00)
[2024-10-11] MEDS: REGADENOSON 0.4 MG/5 ML PRE-FILLED SYRINGE IVPUSH ONE (15:23)
[2024-10-13 08:35] LABS: EOS % 9.3 % (0-4.5); HEMATOCRIT 30.8 % (35.4-49); HEMOGLOBIN 9.3 GM/dL (11.7-16.9); LYMPH % 17.4 % (8-40); MCH 23.2 pg (25.7-33.7); MCHC 30.1 g/dl (32.0-35.9); MEAN CELL VOLUME 77.1 fl (80-96); MEAN PLT VOLUME 8.6 fl (7.5-11.1); MONO % 8.1 % (3.8-10.2); NEUT % 64.2 % (42.8-82.8); PLATELET COUNT 265 10^3/uL (134-434); RDW 19.4 % (11.9-15.9); WHITE BLOOD COUNT 7.9 K/mm3 (4.0-10.0)
[2024-10-13 09:13] LABS: POTASSIUM 4.6 mmol/L (3.5-5.1)
[2024-10-13 09:22] LABS: ALBUMIN 2.5 g/dl (3.4-5.0); BLOOD UREA NITROGEN 27.5 mg/dL (7-18); CALCIUM 8.7 mg/dL (8.5-10.1)
[2024-10-13 09:23] LABS: BILIRUBIN,TOTAL 0.5 mg/dL (0.2-1); TOT PROT 6.5 g/dl (6.4-8.2)
[2024-10-13 09:25] LABS: CREATININE 2.4 mg/dL (0.55-1.3)
[2024-10-13] MEDS: INSULIN (NOVOLOG) ASPART 100 UNITS/ML 10ML VIAL SQ ONE (18:52)
[2024-10-13] MEDS: INSULIN ASPART SLIDING SCALE (NOVOLOG) 1 VIAL SQ SCH (21:56)
[2024-10-14] MEDS: INSULIN ASPART SLIDING SCALE (NOVOLOG) 1 VIAL SQ SCH (21:59)
[2024-10-15] MEDS: INSULIN (LEVEMIR) 100 UNITS/ML UNITS SQ SCH (06:02)
[2024-10-15 22:42] LABS: POTASSIUM 4.7 mmol/L (3.5-5.1)
[2024-10-15 22:44] LABS: BLOOD UREA NITROGEN 25.4 mg/dL (7-18); CALCIUM 8.5 mg/dL (8.5-10.1)
[2024-10-15 22:48] LABS: CREATININE 2.5 mg/dL (0.55-1.3)
[2024-10-17 06:11] VITALS: BP 140/77; PULSE 99; RESP 19; TEMP 98.2
== END 2024-10-17 07:12 | disposition home health service (06) | DRG 420 ==
LOC: JER 15:46 → JERBED 21:14 → INTOOBSV 21:14 → UNDOADMOB 21:14 → JERBED 10-06 11:09 → J4S 10-06 14:56 → OBSVTOIN 10-06 20:32
PROVIDERS: ADMIT Internal Medicine; ATTEND Internal Medicine
DX: E11.649 Type 2 diabetes mellitus with hypoglycemia without coma (principal); I48.91 Unspecified atrial fibrillation; I25.10 Atherosclerotic heart disease of native coronary artery without angina pectoris; E03.9 Hypothyroidism, unspecified; E66.01 Morbid (severe) obesity due to excess calories; Z68.42 Body mass index [BMI] 45.0-49.9, adult; E11.51 Type 2 diabetes mellitus with diabetic peripheral angiopathy without gangrene; I13.0 Hypertensive heart and chronic kidney disease with heart failure and stage 1 through stage 4 chronic kidney disease, or unspecified chronic kidney disease; E11.22 Type 2 diabetes mellitus with diabetic chronic kidney disease; N18.9 Chronic kidney disease, unspecified; I50.33 Acute on chronic diastolic (congestive) heart failure; E11.40 Type 2 diabetes mellitus with diabetic neuropathy, unspecified; E87.5 Hyperkalemia; R80.9 Proteinuria, unspecified; Z89.421 Acquired absence of other right toe(s); Z89.512 Acquired absence of left leg below knee
CPT/HCPCS: 0241U-QW; 36415; 70450-TC; 71045-TC-FY; 80048; 80053; 81003; 82803; 82962; 83036; 83605; 83690; 83735; 83880; 84439; 84443; 84484; 85025; 85610; 85730; 87086; 93005; 93010; 93306-TC; 97116-GP; 97162-GP; 99285-25; G0378